=== PATIENT | male | born 1945 | race Caucasian/White ===

== ENCOUNTER 2023-02-15 23:58 | Emergency (ER) | payer MEDICARE, OTHER, SELFPAY ==
[2023-02-16 00:10] VITALS: BP 139/76; PULSE 76; RESP 16; TEMP 36.8; O2SAT 96; BMI 28.6
--- NOTE | 2023-02-16 00:22 | PC.NURSE ---
patient states he began to develop bilateral hip pain that radiated down to ankles approx 1 week ago. states he saw a chiropractor yesterday who helped with the pain to the right side, states he has zero pain to right lower extremity anymore. states the pain to the left seems to have gotten worse. states the pain starts in his hip and radiates down all the way to his ankle. states he has never been diagnosed with sciatica but this feels like it . states the pain improves when he is standing up and walking but worsens when he sits down or tries to lay down. states he tried ice, tylenol, and icyhot without relief.
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
[2023-02-16] MEDS: ONDANSETRON PF 4 MG/2 ML VIAL IV (00:52)
[2023-02-16] MEDS: MORPHINE SULFATE 4 MG/ML VIAL IV (00:52)
[2023-02-16 01:02] LABS: Basophils Absolute Auto 0.1 10^3/uL (0.0-0.1); Basophils Percent Auto 0.8 % (0.2-2.0); Eosinophils Absolute Auto 0.3 10^3/uL (0.0-0.7); Hematocrit 39.5 % (42.0-54.0); Hemoglobin 13.1 g/dL (14.0-18.0); Immature Granulocytes Abs Auto 0.07 10^3/uL (0.00-0.03); Immature Granulocytes Pct Auto 1.1 % (0.0-0.5); Lymphocytes Absolute Auto 1.5 10^3/uL (1.2-3.8); Lymphocytes Percent Auto 22.5 % (20.5-60.0); Mean Corpuscular HGB Conc 33.2 g/dL (29.9-35.2); Mean Corpuscular Volume 90.4 fL (80.0-94.0); Mean Platelet Volume 10.4 fL (9.5-13.5); Monocytes Absolute Auto 0.7 10^3/uL (0.3-0.8); Monocytes Percent Auto 10.2 % (1.7-12.0); Neutrophils Percent Auto 61.4 % (43.0-75.0); Platelet Count 157 10^3/uL (150-450); Red Blood Count 4.37 10^6/uL (4.70-6.10); Red Cell Distribution Width 12.6 % (11.0-15.0); White Blood Count 6.5 10^3/uL (4.0-11.0)
[2023-02-16 01:07] LABS: BUN Creatinine Ratio 15.6; Calcium 8.7 mg/dL (8.5-10.1); Chloride 105 mmol/L (98-107); Estimated GFR (African America >60 (>=60); Estimated GFR (Non-African Ame 54 (>=60); Glucose 141 mg/dL (74-106); Sodium 141 mmol/L (136-145)
[2023-02-16] MEDS: HYDROCODONE/ACETAMINOPHEN 5-325 MG TABLET 4 TAB PO (02:19)
== END 2023-02-16 02:28 | disposition home or self-care (01) ==
PROVIDERS: Emergency Provider Internal Medicine; PCP Family Medicine
DX: M54.42 Lumbago with sciatica, left side (principal); M51.26 Other intervertebral disc displacement, lumbar region; Z91.81 History of falling
CPT/HCPCS: 36415; 80048; 85025; 96374; 96375; 99284

== ENCOUNTER 2023-08-11 07:19 | Emergency (ER) | payer MEDICARE, OTHER, SELFPAY ==
[2023-08-11] VITALS (9 sets, daily range): BP systolic 127–148; BP diastolic 67–86; PULSE 55–71; RESP 4–21; TEMP 36.5; O2SAT 92–98; BMI 28.1
--- NOTE | 2023-08-11 07:34 | XR_ITS ---
The [address] [address] Patient Name: ROCIO PANG MRN: [id number] date: 1945 Sex: M Assigned Patient Location: ER Current Patient Location: ER Accession/Order Number: [id number] Exam Date: 08/11/2023 07:43 Report Date: 08/11/2023 07:55 At the request of: CHRISTIANO GHOTRA Procedure: XR chest 1V EXAM: XR chest 1V HISTORY: . SOB . COMPARISON: None. TECHNIQUE: Single view of the chest FINDINGS: Heart and vascularity are unremarkable. Lungs are free of focal infiltrates. There are couple granuloma in the left midlung field. EKG leads overlie the chest. XR/XR chest 1V IMPRESSION: No acute heart or lung disease identified. Electronically authenticated by: MAYANK MCRAE Date: 08/11/2023 07:55
--- NOTE | 2023-08-11 07:34 | ECG_ITS ---
The [facility] Test Date: 2023-08-11 Pat Name: ROCIO PANG Department: Room: - Gender: Male [employer]: : 1945 Requested By: NATAN KEYES Order Number: [id number] Reading MD: JEAN PIERRE STILL Measurements Intervals [place] Rate: 58 P: 25 GA: 166 QRS: -14 QRSD: 78 T: 67 QT: 410 QTc: 406 Interpretive Statements 1100 Sinus rhythm 9110 normal ECG No previous ECG available for comparison Electronically Signed On 08-12-2023 6:48:23 EST by JEAN PIERRE STILL
[2023-08-11 08:20] LABS: Influenza Virus A Antigen Negative; Influenza Virus B Antigen Negative; Internal Control Within Normal Limits; SARS-CoV-2 Ag POSITIVE (NEGATIVE)
--- NOTE | 2023-08-11 08:33 | ED.GENADUL1 ---
HPI - General Adult General Chief complaint: Shortness of Breath/Dyspnea Stated complaint: SHORTNESS OF BREATH Time Seen by Provider: 08/11/23 07:38 Source: patient Mode of arrival: walk-in History of Present Illness HPI narrative: Patient is a 77-year-old male who is presenting to the Emergency Room with chief complaint of cough, congestion and not feeling well for the past 7 days. Patient had more congestion this morning, felt short of breath this morning, so came in for evaluation. Patient has been doing Mucinex mxmq-hwd-clcasnn. Patient 7 days ago did have ear aches bilateral and sore throat. Patient's ear pain and sore throat has improved. Patient has no chest pain, no chest tightness. Patient is not short of breath at this time. No Abdominal pain, nausea, vomiting, or any other acute complaints. Patient Looks well. No other acute complaints. . All systems are negative except as noted/marked. All systems reviewed and otherwise negative. . Nurses note and vital signs reviewed and patient is not hypoxic. General: The patient appears well and in no apparent distress. Patient is resting comfortably on cart. Patient is not toxic, lethargic, or listless Skin: Warm, dry, no pallor noted. There is no rash noted. No petechiae, purpura. Head: Normocephalic, atraumatic Eye: Normal conjunctiva, no drainage, EOMI. PERRL Ears, Nose, Mouth, and Throat: oral mucosa is moist. Nares patent. Mouth without vesicles. Patient has clear drainage noted to the posterior pharynx, patient has mild posterior pharyngeal erythema, no unilateral swelling, airway patent, no other intraoral pathology. Cardiovascular: Regular Rate and Rhythm, no murmur, gallop, rub Respiratory: Patient is in no distress, no accessory muscle use, lungs are clear to auscultation, no wheezing, rales or rhonchi Back: non-tender, no CVA tenderness bilaterally to percussion. No CT LS midline pain GI: soft, no tenderness to palpation, Musculoskeletal: Patient has full range of motion of all of the extremities, no motor, sensory, or focal neurological deficits Neurological: A&O x3, normal speech Psychiatric: Cooperative Related Data Home Medications Medication Instructions Recorded Confirmed atorvastatin 20 mg tablet 20 mg PO DAILY 08/11/23 08/11/23 sitagliptin phosphate 100 mg 100 mg PO DAILY 08/11/23 08/11/23 tablet (Januvia) Previous Rx's Medication Instructions Recorded benzonatate 100 mg capsule 100 mg PO TID PRN cough #21 caps 08/11/23 rqsdbvaeyvajozf-lnbaqnucyhocnuu-KT 10 ml PO Q6H PRN cold symptoms 08/11/23 2 mg-30 mg-10 mg/5 mL oral syrup #200 mL (Bromfed DM) prednisone 50 mg tablet 50 mg PO DAILY 5 days #5 tabs 08/11/23 Allergies Allergy/AdvReac Type Severity Reaction Status Date / Time No Known Drug Allergies Allergy Verified 02/16/23 00:16 Exam Constitutional Vital Signs, click to edit/add: Last Vital Signs Temp 97.7 F 08/11/23 07:22 Pulse 66 08/11/23 07:22 Resp 20 08/11/23 07:22 BP 148/67 H 08/11/23 07:22 Pulse Ox 97 08/11/23 07:22 O2 Del Method Room Air 08/11/23 07:22 Course Vital Signs Vital signs: Vital Signs Temperature 97.7 F 08/11/23 07:22 Pulse Rate 66 08/11/23 07:22 Respiratory Rate 20 08/11/23 07:22 Blood Pressure 148/67 H 08/11/23 07:22 Pulse Oximetry 97 08/11/23 07:22 Oxygen Delivery Method Room Air 08/11/23 07:22 Temperature 97.7 F 08/11/23 07:22 Pulse Rate 66 08/11/23 07:22 Respiratory Rate 20 08/11/23 07:22 Blood Pressure 148/67 H 08/11/23 07:22 Pulse Oximetry 97 08/11/23 07:22 Oxygen Delivery Method Room Air 08/11/23 07:22 Medical Decision Making MDM Narrative Medical decision making narrative: EKG interpretation. Normal sinus rhythm at 50 beats a minute. Left axis deviation. No acute ST elevation, no acute ectopy. QTC of 406. Patient, tested positive, influenza is negative. Patient chest x-ray shows no acute cardio point is from EKG shows no acute changes. Patient's been sick for 7 days, patient most likely the end of illness/infection and Covid. Patient was given a prescription for steroids, Tessalon Perles and Bromfed. Patient will use DayQuil, NyQuil, Flonase [id number]. Patient continued she symptoms. No questions at discharge, no antibiotic indicated. No sinus pressure. Lab Data Labs: Lab Results 08/11/23 Range/Units 07:30 SARS-CoV-2 (PCR) Positive A (NEGATIVE) Influenza Type A Ag Negative Influenza Type B Ag Negative Discharge Plan Discharge Chief Complaint: Shortness of Breath/Dyspnea Clinical Impression: COVID, Sinus congestion, Cough Patient Disposition: Home, Self-Care Time of Disposition Decision: 08:22 Condition: Good Prescriptions / Home Meds: New prednisone 50 mg tablet 50 mg PO DAILY 5 Days Qty: 5 0RF benzonatate 100 mg capsule 100 mg PO TID PRN (Reason: cough) Qty: 21 0RF syolcjiimymhdaq-ztihoeqxi-TU [Bromfed DM] 2-30-10 mg/5 mL syrup 10 ml PO Q6H PRN (Reason: cold symptoms) Qty: 200 0RF No Action atorvastatin 20 mg tablet 20 mg PO DAILY Januvia 100 mg tablet 100 mg PO DAILY Instructions: Sinusitis (ED), Acute Cough (ED), COVID-19 (Coronavirus Disease 2019) (ED) Additional Instructions: Use [id number] DayQuil, NyQuil, Flonase. Follow-up with her PCP. Education on COVID was provided at bedside In discharge paperwork. Stand Alone Forms: Work/School Release, Portal Instructions Referrals: NATAN KEYES [Primary Care Provider] - 1 week
== END 2023-08-11 08:37 | disposition home or self-care (01) ==
PROVIDERS: Emergency Provider Emergency Medicine; PCP Family Medicine
DX: U07.1 COVID-19 (principal); R05.9 Cough, unspecified; R09.81 Nasal congestion; Z79.899 Other long term (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 therapy
CPT/HCPCS: 71045; 87804; 87811; 93005; 99285

== ENCOUNTER 2023-12-24 09:57 | Outpatient (OUT) | payer MEDICARE, OTHER, SELFPAY ==
[2023-12-24 12:03] LABS: Prostate Specific Antigen Dx 0.35 ng/mL (<=4.00)
== END 2023-12-24 09:58 | disposition home or self-care (01) ==
LOC: LAB 09:59
PROVIDERS: PCP Family Medicine; Visit Provider Radiology Radiation Oncology
DX: Z85.46 Personal history of malignant neoplasm of prostate (principal)
CPT/HCPCS: 36415; 84153

== ENCOUNTER 2024-01-12 20:40 | Emergency (ER) | payer MEDICARE, OTHER, SELFPAY ==
[2024-01-12 20:44] VITALS: BP 140/68; PULSE 60; TEMP 36.5; O2SAT 96; BMI 28.8
--- NOTE | 2024-01-12 20:53 | XR_ITS ---
The [address] [address] Patient Name: ROCIO PANG MRN: [id number] date: 1945 Sex: M Assigned Patient Location: ER Current Patient Location: Accession/Order Number: [id number] Exam Date: 01/12/2024 21:12 Report Date: 01/12/2024 22:14 At the request of: JULIAN WOODS Procedure: XR hand RT min 3V EXAM: XR hand RT min 3V , 01/12/2024 HISTORY: right thumb/hand pain COMPARISON: None. TECHNIQUE: X-rays of the right hand 3 views. FINDINGS: No fracture or dislocation right hand. Moderate degenerative changes are seen at the first carpometacarpal joint. No obvious soft tissue swelling or subcutaneous air. The bones are well-mineralized. XR/XR hand RT min 3V IMPRESSION: No fracture or dislocation right hand. Electronically authenticated by: MAYITO HALLMAN Date: 01/12/2024 22:14
--- NOTE | 2024-01-12 20:54 | ED.GENADUL1 ---
HPI HPI - General Adult General Chief complaint: Skin/Abscess/Foreign Body Stated complaint: Upper Extremity Pain Time Seen by Provider: 01/12/24 20:45 Source: patient Mode of arrival: walk-in Limitations: no limitations History of Present Illness HPI narrative: Patient is a 78-year-old male who presents to the emergency department for the evaluation of right thumb pain that he states began about 2 hours ago while at [email or web address]. He states he noticed a small red dot on the dorsum of the thumb and believes he may have been bitten by something. There has been no itching to the area, open wounds or drainage. He states pain now radiates to the entire right hand. No injury or trauma that he is aware of. He has not had any swelling or redness of the rest of the hand. No numbness or tingling. Related Data Home Medications ?Medication ?Instructions ?Recorded ?Confirmed atorvastatin 20 mg tablet 20 mg PO DAILY 08/11/23 08/11/23 sitagliptin phosphate 100 mg 100 mg PO DAILY 08/11/23 01/12/24 tablet (Januvia) metformin 500 mg tablet mg 01/12/24 Previous Rx's ?Medication ?Instructions ?Recorded benzonatate 100 mg capsule 100 mg PO TID PRN cough #21 caps 08/11/23 sefogjcbenjlhld-omdmeqpxdmyftpi-XE 10 ml PO Q6H PRN cold symptoms 08/11/23 2 mg-30 mg-10 mg/5 mL oral syrup #200 mL (Bromfed DM) prednisone 50 mg tablet 50 mg PO DAILY 5 days #5 tabs 08/11/23 naproxen 500 mg tablet 500 mg PO Q12H PRN pain #14 tabs 01/12/24 tramadol 50 mg tablet 50 mg PO Q4H PRN pain 3 days #15 01/12/24 tabs Allergies Allergy/AdvReac Type Severity Reaction Status Date / Time No Known Drug Allergies Allergy Verified 01/12/24 20:50 Opioid HPI Opioid Management Most Recent Opioid Data: No Data to Display Review of Systems ROS Constitutional Denies: fever or chills Ears, nose, mouth, and throat Denies: throat pain or nasal congestion Respiratory Denies: shortness of breath Gastrointestinal Denies: nausea or vomiting Musculoskeletal Reports: extremity pain; Denies: back pain or neck pain Integumentary/Breast Denies: rash Hematologic/Lymphatic Denies: easy bruising or easy bleeding Exam Narrative Exam Narrative: Gen.: Awake, alert, in no distress Head: Normocephalic, atraumatic ENT: Moist mucous membranes Respiratory: No respiratory distress Extremities: Patient is noted to be rubbing his right hand and his thumb with no difficulty or grimacing, but on my gentle touch of the right hand, he inks his hand away. He is unwilling to flex or extend the right thumb. There is no noted swelling, ecchymosis, discoloration of the right hand. 2 mm erythematous flat area to the dorsum of the proximal phalanx of the right thumb. No surrounding redness or red streaking. No open wounds. Psych: Normal mood and affect Neuro: No focal neuro deficit Skin: Warm, dry, intact Constitutional Vital Signs, click to edit/add: Last Vital Signs Temp 97.7 F 01/12/24 20:44 Pulse 60 01/12/24 20:44 Resp 16 01/12/24 20:44 BP 140/68 01/12/24 20:44 Pulse Ox 96 01/12/24 20:44 O2 Del Method Room Air 01/12/24 20:44 Course Vital Signs Vital signs: Vital Signs Temperature 97.7 F 01/12/24 20:44 Pulse Rate 60 01/12/24 20:44 Respiratory Rate 16 01/12/24 20:44 Blood Pressure 140/68 01/12/24 20:44 Pulse Oximetry 96 01/12/24 20:44 Oxygen Delivery Method Room Air 01/12/24 20:44 Temperature 97.7 F 01/12/24 20:44 Pulse Rate 60 01/12/24 20:44 Respiratory Rate 16 01/12/24 20:44 Blood Pressure 140/68 01/12/24 20:44 Pulse Oximetry 96 01/12/24 20:44 Oxygen Delivery Method Room Air 01/12/24 20:44 Medical Decision Making [facility] [place] Narrative Medical decision making narrative: Patient is noted to have no discomfort or grimacing when touching his own hand or placing his hand on the bed. He pulls his hand away on my exam. There is no evidence of significant insect sting, cellulitis or abscess to the right hand. X-rays show arthritis with no acute fracture or dislocation and labs show normal CRP and sed rate with stable labs, mild acute kidney injury. Patient will be placed on NSAIDs, we will avoid steroids as he has a history of diabetes. A short course of analgesics given patient was reevaluated by attending physician at discharge. Follow-up with PCP and return to the ER if symptoms change or worsen. Finger splint applied for comfort. Lab Data Lab results reviewed: Yes I reviewed the patient's lab results Labs: Lab Results 01/12/24 Range/Units 20:59 WBC 6.7 (4.0-11.0) 10^3/uL RBC 4.36 L (4.70-6.10) 10^6/uL Hgb 13.1 L (14.0-18.0) g/dL Hct 40.1 L (42.0-54.0) % MCV 92.0 (80.0-94.0) fL MCH 30.0 (25.9-34.0) pg MCHC 32.7 (29.9-35.2) g/dL RDW 12.4 (11.0-15.0) % Plt Count 159 (150-450) 10^3/uL MPV 10.8 (9.5-13.5) fL Neut % (Auto) 66.4 (43.0-75.0) % Lymph % (Auto) 19.3 L (20.5-60.0) % [place] % (Auto) 9.1 (1.7-12.0) % Eos % (Auto) 3.9 (0.9-7.0) % Baso % (Auto) 0.6 (0.2-2.0) % Neut # (Auto) 4.4 (1.4-6.5) 10^3/uL Lymph # (Auto) 1.3 (1.2-3.8) 10^3/uL [place] # (Auto) 0.6 (0.3-0.8) 10^3/uL Eos # (Auto) 0.3 (0.0-0.7) 10^3/uL Baso # (Auto) 0.0 (0.0-0.1) 10^3/uL Abs Immat Gran (auto) 0.05 H (0.00-0.03) 10^3/uL Imm/Tot Granulo (auto) 0.7 H (0.0-0.5) % ESR 17 (<=20) mm/hr Sodium 139 (136-145) mmol/L Potassium 4.0 (3.5-5.1) mmol/L Chloride 103 (98-107) mmol/L Carbon Dioxide 27.9 (21.0-32.0) mmol/L Anion Gap 12.1 BUN 26.0 H (7.0-18.0) mg/dL Creatinine 1.53 H (0.70-1.30) mg/dL Est GFR ( Amer) 54 L (>=60) Est GFR (Non-Af Amer) 44 L (>=60) BUN/Creatinine Ratio 17.0 Glucose 180 H (74-106) mg/dL Uric Acid 7.5 H (3.5-7.2) mg/dL Calcium 9.2 (8.5-10.1) mg/dL C-Reactive Protein <0.50 (<=0.50) mg/dL Imaging Data XR hand: Attestation: I have reviewed the pertinent imaging results. Discharge Plan Discharge Stand Alone Forms: Portal Instructions Chief Complaint: Skin/Abscess/Foreign Body Clinical Impression: Pain of right thumb Patient Disposition: Home, Self-Care Time of Disposition Decision: 21:43 Condition: Good Prescriptions / Home Meds: New tramadol 50 mg tablet 50 mg PO Q4H PRN (Reason: pain) 3 Days Qty: 15 0RF Rx Instructions: M79.644 naproxen 500 mg tablet 500 mg PO Q12H PRN (Reason: pain) Qty: 14 0RF No Action atorvastatin 20 mg tablet 20 mg PO DAILY Januvia 100 mg tablet 100 mg PO DAILY prednisone 50 mg tablet 50 mg PO DAILY 5 Days Qty: 5 0RF benzonatate 100 mg capsule 100 mg PO TID PRN (Reason: cough) Qty: 21 0RF lvjdlydupotidaa-myvfkbiht-IQ [Bromfed DM] 2-30-10 mg/5 mL syrup 10 ml PO Q6H PRN (Reason: cold symptoms) Qty: 200 0RF metformin 500 mg tablet Print Language: [place] Instructions: Arthralgia (ED) Referrals: NATNA KEYES [Primary Care Provider] - 1 week
--- OUTSIDE RECORDS SUMMARY | 2024-01-12 20:56 | XMS_ITS | CCD ---
Author Organization [facility] Care Team Providers Care Blanket Binder Name Role Phone Unavailable Primary Care Provider Unavailtheodore e Natan Keyes Primary Care Provider Chuck Hamm Unavailable Karine Torres Unavailable Jenn Thomas Unavailable NATAN KEYES Primary Care Physician [phone] AKMACKAOBIEIL Admitting Unavailable AKKINA, MARY Attending Unavailable STEPHY, DR GAMA Primary Care Unavailable STEPHY, DR GAMA Admitting Unavailable STEPHY, DR GAMA Attending Unavailable STEPHY, DR GAMA Primary Care Unavailable STEPHY, DR GAMA Consulting Unavailable STEPHY, DR GAMA Primary Care Unavailable JOAQUIN LUCIANO Admitting Unavailable JOAQUIN LUCIANO Attending Unavailable ZIETELVINA, DR NATHAN Khan Consulting Unavailable DESTINI JORGENSEN Consulting Unavailable STEPHY, DR GAMA Primary Care Unavailable JOAQUIN LUCIANO Admitting Unavailable JOAQUIN LUCIANO Attending Unavailable PHIL GARCIA Consulting Unavailable AKKINA, MARY Admitting Unavailable AKKINA MARY Attending Unavailable STEPHY, DR GAMA Primary Care Unavailable Jillian Edwards Unavailable MD Natan Keyes Primary Care Provider MD Jillian Edwards Attending Provider Natan Keyes Primary Care Provider MD Natan Keyes Primary Care Provider MD Chuck Hamm Attending Provider Kuns, DO Goyo P Attending Provider MD Natan Keyes Primary Care Provider MD Jillian Edwards Attending Provider Natan Keyes MD Unavailable Natan Keyes MD Primary Care Provider Natan Keyes Primary Care Unavailable Bakmoons, Aziz Admitting Unavailable Grace Aziz Attending Unavailable Natan Keyes Primary Care Unavailable Mihai Edwardsiz Admitting Unavailable Jillian Edwards Attending Unavailable Natan Keyes Primary Care Unavailable HanselChuck giron S Admitting Unavailable Chuck Hamm S Attending Unavailable Natan Keyes Primary Care [facility] Unavailable [facility], Goyo Duque Attending Unavailable Unavailable Primary Care Provider UnavailGOYO Jenkins Attending Unavailable JULIAN HEBERT Referring Unavailable GOYO COLEMAN Attending Unavailable GOYO COLEMAN Referring Unavailable JULIAN HEBERT Attending Unavailable WANDA MORENO Attending Unavailable NATAN KEYES Attending Unavailable Natan Keyes MD Primary Care Provider [phone] Bernardo PHAN Attending Unavailable Bernardo PHAN Attending Unavailable Sudheer Dyson Attending Unavailable NATAN KEYES [facility] Unavailable Stanley LEAL Referring Unavailable Stanley LEAL Attending Unavailable Allergies Allergy Classification Reported Allergen(s) Allergy Type Date of Onset Reaction(s) Facility (13 sources) Grass Mix Pollens Allergen Ext Drug allergy Unknown [facility] Other (1 source) Other Allergy to substance 3 [facility] (1 source) Wound Dressing Adhesive Drug Allergy 2 Unknown [facility] (1 source) Grass pollen Drug allergy (disorder) 4 [facility]ository (1 source) Grass; Translations: [Grass] Propensity to adverse reactions (disorder) [facility] Repository Medications Current Medications Medication Drug Class(es) Dates Sig (Normalized) Sig (Original) 0.4 ML cyclosporine 0.5 MG/ML Ophthalmic Suspension [Restasis] (1 source) Start: 05-19-2021 take 1 drop(s) into the eye(s) twice daily Restasis 0.05% Emulsion INSTILL 1 DROP INTO BOTH EYES TWICE A DAY Start Date: 05/19/21 Status: Ordered acetaminophen 325 mg / HYDROcodone bitartrate 5 mg oral tablet (1 source) Opioid Agonist take 1-2 tablets by mouth three times daily as needed HYDROcodone-aceta minophen ([place]) 5-325 MG tablet TAKE 1-2 TABLET BY MOUTH THREE TIMES DAILY NEEDED 0 Active acetaminophen 325 mg / oxyCODONE hydrochloride 5 mg oral tablet (1 source) Opioid Agonist Percocet 5-325 M G 1 tablet as needed Orally as needed Active [id number] 200 actuat albuterol 0.09 mg/actuat metered dose inhaler (5 sources) beta2-Adrenergic Agonist Start: 02-27-2023 take 2 puff(s) by inhalation four times daily as needed albuterol 90 mcg/actuation inhaler Inhale 2 puffs 4 times a day as needed. 0 02/27/2023 Active Start: 02-27-2023 take 2 puff(s) by mo uth four times daily as needed albuterol HFA 90 mcg/act inhaler INHALE 2 PUFFS BY MOUTH 4 TIMES A DAY NEEDED 0 02/27/2023 Active Start: 02-27-2023 take 2 puff(s) by in halation four times daily as needed Albuterol Sulfate HFA 108 (90 Base) MCG/ACT 2 puffs Inhalation 4 times a day prn Feb, Active allopurinol 100 mg oral tablet (2 sources) Xanthine Oxidase Inhibitor Start: 05-19-2021 take 1 tablet by mouth once daily allopurinol 100 mg Tab TAKE 1 TABLET BY MOUTH EVERY DAY Start Date: 05/19/21 Status: Ordered amoxicillin 875 mg / clavulanate 125 mg oral tablet (2 sources) Penicillin-class Antibacterial Start: 02-27-2023 take 1 tablet by mouth every twelve hours Amoxicillin-Pot Clavulanate 875-125 MG 1 tablet Orally every 12 hrs for 10 day(s) Feb, Active atorvastatin 20 mg oral tablet (3 sources) HMG-CoA Reductase Inhibitor Start: 07-05-2023 take 1 tablet by mouth once daily before mealtime atorvastatin (Lipitor) 20 mg tablet Take 1 tablet (20 mg) by mouth once daily in the morning. Take before meals. 0 07/05/2023 Active baclofen 10 mg oral tablet (1 source) gamma-Aminobutyric Acid-ergic Agonist baclofen (Lioresal) 10 MG tablet every 8 (eight) hours. 0 Active benzonatate 200 mg oral capsule (2 sources) Non-narcotic Antitussive Start: 02-27-2023 take 1 capsule by mouth every eight hours Benzonatate 200 MG 1 capsule Orally Three times a day Feb, Active Calcium (6 sources) Phosphate Binder, Calcium Calcium Active cholecalciferol 0.025 mg oral tablet (4 sources) Vitamin D Start: 06-24-2020 take 1 tablet by mouth once daily calcium (as carbonate)-vitami n D 90 mg-25 mcg (1000 intl units) oral tablet tab(s), Oral, Daily, Refill(s) 0 Start Date: 06/24/20 Status: Ordered Cholecalciferol, Vitamin D3, 50 mcg (2,000 unit) cap Take by mouth. 0 Active Comment on above: Take by mouth. Continuous Blood Gluc Sensor (FreeStyle [place]ito 2 Sensor) [facility] (1 source) Start: 08-03-20 23 Continuous Blood Gluc Sensor (FreeStyle Mayito 2 Sensor) [facility] Indications: Type 2 diabetes mellitus without complication, without long-term current use of insulin ([facility]) CHANGE EVERY 2 WEEKS DIRECTED 2 each 5 08/03/2023 Active diphenhydrAMINE (3 sources) Histamine-1 Receptor Antagonist diphenhydramine HCl (BENADRYL ALLERGY ORAL) Take by mouth. 0 Active Comment on above: Take by mouth. Loperamide (3 sources) Opioid Agonist loperamide HCl (IMODIUM ORAL) Take by mouth as needed. 0 Active Comment on above: Take by mouth as nee ded. metFORMIN hydrochloride 500 mg oral tablet (19 sources) Biguanide Start: 05-19-20 21 take 1 tablet by mouth twice daily metFORMIN (Glucophage) 500 mg tablet Take 1 tablet (500 mg) by mouth 2 times a day. 0 05/19/2021 Active take 1 tablet by abhishek th once daily at breakfast metFORMIN (GLUCOPHAGE) 500 mg tablet Melo e 500 mg by mouth daily with breakfast. 0 Active Comment on above: Take 500 mg by mouth daily with breakfast. olopatadine 2 mg/ml ophthalmic solution (4 sources) Histamine-1 Receptor Inhibitor Start: 02-27-2023 olopatadine (Pataday) 0.2 % ophthalmic solution Administer into affected eye(s) once every 24 hours. 0 02/27/2023 Active Start: 02-27-2023 take 1 drop(s) into the eye(s) once daily Pataday 0.2 % 1 drop into affected eye each eye Once a day for 7 days Feb, Active potassium phosphate 155 mg / sodium phosphate, dibasic 852 mg / sodium phosphate, monobasic 130 mg oral tablet (8 sources) Start: 01-20-2023 take 1 tablet by mouth three times daily Phospha 250 Neutral tablet Take 1 tablet (250 mg) by mouth 3 times a day. 0 01/20/2023 Active SITagliptin 100 mg oral tablet (18 sources) Dipeptidyl Peptidase 4 Inhibitor Start: 03-09-2022 Januvia Oral, Daily, Refill(s) 0 Start Date: 03/09/22 Status: Ordered Start: 10-16-2021 take 1 tablet by abhishek th once daily JANUVIA 100 mg tablet TAKE 1 TABLET BY MOUTH EVERY DAY FOR 30 DAYS 0 10/16/2021 Active Januvia Active Comment on above: TAKE 1 TABLET BY ABHISHEK TH EVERY DAY FOR 30 DAYS tamsulosin hydrochloride 0.4 mg oral capsule (3 sources) alpha-Adrenergic Camryn Start: 1 End: 2 take 1 capsule by mouth once daily at bedtime tamsulosin 0.4 mg Cap TAKE 1 CAPSULE BY MOUTH EVERYDAY AT BEDTIME Start Date: 05/19/21 Status: Ordered Comment on above: Take 1 capsule by mo [facility] daily at bedtime. tiZANidine 4 mg oral tablet (7 sources) Central alpha-2 Adrenergic Agonist Start: 1 tiZANidine 4 mg Tab TAKE 1/2 1 TABLET BY MOUTH TWICE A DAY NEEDED Start Date: 05/19/21 Status: Ordered Vitamin D3 (6 sources) Vitamin D3 Activ e Completed/Discontinued Medications Medication Drug Class(es) Dates Sig (Normalized) Sig (Original) azithromycin 250 mg oral tablet (8 sources) Macrolide Antimicrobial Start: 10-14-2001 take 1 tablet by mouth once daily ZITHROMAX TABLET 250MG PO Take one(1) tablet daily. 4 0 10/14/2001 Active Comment on above: Take one(1) tablet d aily. famotidine 20 mg oral tablet (8 sources) Histamine-2 Receptor Antagonist Start: 10-14-2001 take 1 tablet by mouth once daily PEPCID TABLET 20MG PO Indications: Abdominal pain, unspecified site , Constipation , Esophageal reflux Take one(1) tablet daily. 30 3 10/14/2001 Active Comment on above: Take one(1) tablet d aily. Problems Active Problems Problem Classification Problem Date Documented Date Episodic/Chronic Cancer of prostate (3 sources) Malignant tumor of prostate; Translations: [Malignant neoplasm of prostate] Onset: 02-15-2023 06-24-2020 Chronic Cancer of prostate (4 sources) Personal history of malignant neoplasm of prostate; Translations: [History of malignant neoplasm of prostate] Onset: 03-09-2022 Episodic Chronic kidney disease (14 sources) Chronic kidney disease stage 2; Translations: [Chronic kidney disease, stage 2 (mild)] Onset: 01-27-2019 Chronic Chronic obstructive pulmonary disease and bronchiectasis (1 source) Bronchitis, not specified as acute or chronic Episodic Diabetes mellitus with complications (2 sources) Type 2 diabetes mellitus; Translations: [Type 2 diabetes mellitus with diabetic chronic kidney disease] Onset: 01-27-2019 02-15-2023 Chronic Diabetes mellitus without complication (16 sources) Diabetes mellitus; Translations: [Type 2 diabetes mellitus in nonobese] Onset: 02-02-2017 05-15-2019 Chronic Disorders of lipid metabolism (1 source) Hypertriglyceridemia; Translations: [Pure hyperglyceridemia] Onset: 02-15-2023 02-15-2023 Chronic Essential hypertension (1 source) Benign essential hypertension; Translations: [Essential (primary) hypertension] Onset: 07-05-2023 07-05-2023 Chronic Gout and other crystal arthropathies (14 sources) Gouty arthritis of toe; Translations: [Gout, unspecified] Onset: 02-15-2023 02-15-2023 Chronic Hyperplasia of prostate (11 sources) Benign prostatic hypertrophy with outflow obstruction; Translations: [Benign prostatic hyperplasia with lower urinary tract symptoms] Onset: 03-09-2022 Chronic Hypertension with complications and secondary hypertension (5 sources) Hypertensive chronic kidney disease with stage 1 through stage 4 chronic kidney disease, or unspecified chronic kidney disease; Translations: [Chronic kidney disease due to hypertension] Onset: 09-15-2023 Chronic Immunizations and screening for infectious disease (3 sources) Contact with and (suspected) exposure to other viral communicable diseases; Translations: [Contact with and (suspected) exposure to other viral communicable diseases Z20.828] Onset: 05-23-2021 Resolved: 06-14-2021 Episodic Inflammation; infection of eye (except that caused by tuberculosis or sexually transmitteddisease) (1 source) Acute atopic conjunctivitis, bilateral Episodic Joint disorders and dislocations; trauma-related (3 sources) Derangement of right knee; Translations: [Unspecified internal derangement of right knee] Onset: 03-26-2021 02-15-2023 Chronic Malaise and fatigue (2 sources) Fatigue; Translations: [Chronic fatigue, unspecified] Onset: 10-22-2017 02-15-2023 Chronic Melanomas of skin (8 sources) Malignant melanoma of back; Translations: [Malignant melanoma of other part of trunk] Onset: 02-26-2017 02-15-2023 Chronic Nutritional deficiencies (8 sources) Vitamin D deficiency; Translations: [Vitamin D deficiency, unspecified] Onset: 09-15-2023 Chronic Occlusion or stenosis of precerebral arteries (2 sources) Bilateral stenosis of carotid arteries; Translations: [Occlusion and stenosis of bilateral carotid arteries] Onset: 02-15-2023 02-15-2023 Chronic Other aftercare (1 source) Other [employer] driver (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 therapy; Translations: [OTH HALF-WAY CURRENT DRUG THERAPY] Onset: 03-16-2022 Episodic Other aftercare (2 sources) Follow-up status; Translations: [Encounter for change or removal of nonsurgical wound dressing] Onset: 11-12-2023 11-12-2023 Episodic Other aftercare (1 source) Encounter for change or removal of nonsurgical wound dressing; Translations: [Encounter for change or removal of nonsurgical wound dressing] Onset: 11-12-2023 Episodic Other connective tissue disease (1 source) Other muscle spasm; Translations: [OTHER MUSCLE SPASM] Onset: 03-16-2022 Episodic Other connective tissue disease (3 sources) Personal history of other diseases of the musculoskeletal system and connective tissue; Translations: [Personal history of other diseases of the musculoskeletal system and connective tissue] Onset: 09-15-2023 Episodic Other diseases of kidney and ureters (3 sources) Cyst of kidney, acquired; Translations: [Cyst of kidney, acquired] Onset: 09-15-2023 Episodic Other nervous system disorders (13 sources) Chronic pain; Translations: [Other chronic pain] Chronic Other nervous system disorders (4 sources) Other chronic pain; Translations: [Other chronic pain] Onset: 10-17-2021 Resolved: 03-06-2022 Chronic Other nervous system disorders (1 source) Disorder of muscle; Translations: [Myopathy, unspecified] Onset: 06-24-2023 06-24-2023 Chronic Other nutritional; endocrine; and metabolic disorders (5 sources) Hypophosphatemia; 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 Other nutritional; endocrine; and metabolic disorders (4 sources) Other disorders of phosphorus metabolism; Translations: [Other disorders of phosphorus metabolism] Onset: 09-15-2023 Chronic Other nutritional; endocrine; and metabolic disorders (1 source) Cholesterol level - finding; Translations: [Lipoprotein deficiency] Onset: 02-15-2023 02-15-2023 Chronic Other nutritional; endocrine; and metabolic disorders (1 source) Lipoprotein deficiency disorder; Translations: [Lipoprotein deficiency] Onset: 01-25-2018 03-18-2023 Chronic Other upper respiratory infections (5 sources) Acute upper respiratory infection, unspecified; Translations: [Acute pharyngitis, unspecified] Onset: 05-23-2021 Resolved: 02-28-2022 Episodic Residual codes; unclassified (1 source) Left kidney absent 03-01-2020 Episodic Residual codes; unclassified (4 sources) Acquired absence of kidney; Translations: [Acquired absence of kidney] Onset: 09-15-2023 Episodic Spondylosis; intervertebral disc disorders; other back problems (20 sources) Prolapsed lumbar intervertebral disc; Translations: [Other intervertebral disc displacement, lumbar region] Onset: 04-18-2021 Resolved: 03-06-2022 Chronic Unclassified (3 sources) CONTACT W/AND (SUSP) EXPOS COVID-19; Translations: [CONTACT W/AND (SUSP) EXPOS COVID-19] Onset: 06-20-2021 Unclassified (1 source) Other intervertebral disc degeneration, lumbar region; Translations: [Other intervertebral disc degeneration, lumbar region] Onset: 04-07-2023 Past or Other Problems Problem Classification Problem Date Documented Da te Episodic/Chronic Abdominal pain (2 sources) Flank pain; Translations: [Unspecified abdominal pain] Onset: 03-18-2023 02-16-2019 Episodic Calculus of urinary tract (3 sources) History of calculus of kidney; Translations: [Personal history of urinary calculi] Onset: 03-29-2019 02-16-2019 Episodic Genitourinary symptoms and ill-defined conditions (10 sources) Dysuria; Translations: [Microscopic hematuria] Onset: 03-18-2023 03-01-2020 Episodic Inflammatory conditions of male genital organs (2 sources) Prostatitis; Translations: [Inflammatory disease of prostate, unspecified] Onset: 03-18-2023 05-15-2019 Episodic Melanomas of skin (1 source) History of malignant melanoma of the skin; Translations: [Personal history of malignant melanoma of skin] Onset: 09-14-2017 03-18-2023 Episodic Other connective tissue disease (1 source) Triggering of digit; Translations: [Trigger finger, right index finger] Onset: 02-15-2023 02-15-2023 Episodic Other connective tissue disease (1 source) Acquired trigger finger; Translations: [Trigger finger, unspecified finger] Onset: 03-16-2016 03-18-2023 Episodic Other connective tissue disease (1 source) Heel pain; Translations: [Pain in left foot] Onset: 03-23-2023 03-23-2023 Episodic Other connective tissue disease (1 source) Calcaneal spur of left foot; Translations: [Calcaneal spur, left foot] Onset: 03-23-2023 03-23-2023 Episodic Other connective tissue disease (1 source) Muscle pain; Translations: [Myalgia, unspecified site] Onset: 06-02-2023 06-02-2023 Episodic Other gastrointestinal disorders (1 source) Constipation; Translations: [Constipation, unspecified] Onset: 02-15-2023 02-15-2023 Episodic Other gastrointestinal disorders (1 source) Dysphagia; Translations: [Dysphagia, unspecified] Onset: 02-15-2023 02-15-2023 Episodic Other screening for suspected conditions (not mental disorders or infectious disease) (4 sources) Raised prostate specific antigen; Translations: [Elevated prostate specific antigen [PSA]] Onset: 01-29-2020 02-16-2019 Episodic Residual codes; unclassified (8 sources) Absent kidney; Translations: [Acquired absence of kidney] Onset: 02-15-2023 02-15-2023 Episodic Residual codes; unclassified (1 source) History of nephrectomy; Translations: [Acquired absence of kidney] Onset: 02-15-2023 02-15-2023 Episodic Screening and history of mental health and substance abuse codes (2 sources) Ex-smoker; Translations: [Personal history of nicotine dependence] Onset: 03-18-2023 05-15-2019 Episodic Spondylosis; intervertebral disc disorders; other back problems (20 sources) Lumbar radiculopathy; Translations: [Radiculopathy, lumbar region] Onset: 03-05-2020 Resolved: 03-06-2022 Episodic Unclassified (1 source) Contact with and (suspected) exposure to covid-19 Z20.822 Onset: 02-28-2022 Resolved: 02-28-2022 Unclassified (1 source) CONTACT W/AND (SUSP) EXPOS COVID-19; Translations: [CONTACT W/AND (SUSP) EXPOS COVID-19] Onset: 06-17-2021 Viral infection (1 source) COVID-19; Translations: [Other specified viral infection] Onset: 02-15-2023 02-15-2023 Episodic Results Test Name Value Interpretation Reference Range Facility [facility] 12-29-2023 CNOV Office Visit (RADTSA ) GARRETTDINORAOTFROCIO ([id number]) 1945 M Date Time Provider Department 12/29/23 10:30 AM Stanley LEAL During your visit today, we recorded the following information about you: Temperature Pulse Respiration Blood pressure 97.4 degrees 67/minute 18/minute 156/79 Weight 91.5 kg Dora Khanna RN 01/05/2024 2:02 PM Signed AUA 8 JOSE Mott G Phillip, MD 01/05/2024 2:02 PM Signed Radiation Oncology - Follow Up Note PATIENT NAME: Rocio Pang PATIENT DIAGNOSIS: Prostate adenocarcinoma, 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 RADIATION SUMMARY: DATES OF TREATMENT: 11/26/2020- 01/02/2021 AREA TREATED: Pelvis/ Prostate DELIVERED DOSE: Area: Pelvis/ Prostate 7,000 cGy in 28 fractions, 2 Arcs, IMRT, 10 MV with daily CBCT TOTAL: 7,000 cGy in 28 fractions ELAPSED TIME: 37 days. INTERVAL HISTORY:Doing well denies new problems or concerns. 05/20/22:Doing fairly well. Denies any new problems or concerns other than some chronic low back pain due to known ruptured disc. 11/04/21: Doing well. Staying active. He did have some diarrhea periodically earlier this year however this is resolved after taking some probiotics. PSA HISTORY: 12/24/2023 0.35 PSA (ng/mL) Date Value 12/28/2022 0.34 05/11/2022 0.36 11/03/2021 0.38 04/29/2021 0.51 01/28/2021 0.54 11/19/2020 0.88 PSA Screening (ng/mL) Date Value 05/16/2001 2.1 PSA. (no units) Date Value 12/24/2023 0.35 ALLERGIES No Known Allergies metFORMIN (GLUCOPHAGE) 500 mg tablet Take 500 mg by mouth daily with breakfast. Cholecalciferol, Vitamin D3, 50 mcg (2,000 unit) cap Take by mouth. JANUVIA 100 mg tablet TAKE 1 TABLET BY MOUTH EVERY DAY FOR 30 DAYS diphenhydramine HCl (BENADRYL ALLERGY ORAL) Take by mouth. loperamide HCl (IMODIUM ORAL) Take by mouth as needed. REVIEW OF SYSTEMS: D/N = 4-12/21 Hematuria: none Dysuria: none Incontinence: none Urgency: none Catheter use: none Medications to aid urination: y - Total AUA Score: 8 Bowel movement frequency: 1/day Bowel movement quality: normal Blood per emesis left neck: none PHYSICAL EXAM: BP 156/79 Pulse 67 Temp 36.3 ?C (97.4 ?F) Resp 18 Wt 91.5 kg (201 lb 11.5 oz) SpO2 96% KPS: 100 General appearance: Alert and oriented. No acute distress. Rectal exam def Extremities: No deformities, edema, skin discoloration, clubbing or cyanosis. Lymph Nodes: No cervical lymphadenopathy, No supraclavicular lymphadenopathy, No axillary lymphadenopathy. Skin: Skin color, texture, turgor normal, no suspicious rashes or lesions. 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 Patient continues to do very well. PSA remains low. No significant post radiation related problems. Plan to see patient back in 1 year with PSA. Signed by: Stanley Leal MD cc: Natan Keyes MD Portions of the above note extracted and edited from previous visit as well as active information included in the EMR. Referring Provider: Stanley LEAL [[id number]] Allergies As of Date: 12/29/2023 (No Known Allergies) Date Reviewed: 12/29/2023 Reviewed by: Dora Khanna RN - Fully Assessed Reason for Visit: Prostate Cancer [590] Primary Visit Diagnosis:History of prostate cancer [Z85.46] Order(s):PSA (OUTSIDE) [6934401] Order #: [id number] PROSTATE-SPECIFIC ANTIGEN DIAGNOSTIC [SQPSA] Order #: [id number] FUTURE Prescriptions as of 01/05/2024 - metFORMIN (GLUCOPHAGE) 500 mg tablet Take 500 mg by mouth daily with breakfast. - Cholecalciferol, Vitamin D3, 50 mcg (2,000 unit) cap Take by mouth. - JANUVIA 100 mg tablet TAKE 1 TABLET BY MOUTH EVERY DAY FOR 30 DAYS - diphenhydramine HCl (BENADRYL ALLERGY ORAL) Take by mouth. - loperamide HCl (IMODIUM ORAL) Take by mouth as needed. Problem List As Of Date: 12/29/2023 (None) Visit Notes: >> Dora Khanna RN WedDecember 29, 2023 10:17 AM Status: Signed AUA 8 Dora Khanna RN Disposition: Return in about 1 year (around 12/28/2024). Follow-up and Disposition History for Encounter Date Provider Department Center 12/29/2023 [id number] LEAL FITZ HANNA Encounter Status:Closed by Stanley LEAL on 01/05/24 [facility] PSA (OUTSIDE)on 12-24-2023 [facility] Provider Letteron 12-08-2023 Provider Letter December 08, 2023 ROCIO PANG [address] [place] [address] : 1945 Dear Rocio, /We have been trying to reach you with no success. You have an appointment with Dr. Bernardo Phan on 03/17/2024 which will need to be rescheduled since he will be out of the office that day. Please contact the office at the number listed below to get this appointment rescheduled at your earliest convenience. Thank you for your prompt attention to this matter. Sincerely, [facility] [address], [place] [address] [facility] CNCOon 11-22-2023 CNCO Letter Text [facility] Mohs surgeryon 11-03-2023 Consent obtained: written [place] Protocol: Procedure explained and questions answered to patient or proxy's satisfaction: Yes Test results available and properly labeled: Yes Pathology report reviewed: Yes External notes reviewed: Yes Photo or diagram used for site identification: Yes Site/side marked: Yes Slide independently reviewed by Mohs surgeon: Yes Immediately prior to procedure a time out was called: Yes Patient identity confirmed: verbally with patient Preparation: Patient was prepped and draped in usual sterile fashion Anticoagulation: Is the patient taking prescription anticoagulant and/or aspirin prescribed/recommended by a physician? No Was the anticoagulation regimen changed prior to Mohs? 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 Yes Previous treatment type: excision Previous treatment type comment: [address] Pineda Micrographic Surgery Details: Post-operative length (cm): 5.5 Post-operative width (cm): 4 Number of Mohs stages: 1 Is this a complex case (associate members only): No Stage 1 Comments: The patient was brought into the operating room and placed in the procedure chair in the appropriate position. The area positive by previous biopsy was identified and confirmed with the patient. The area of clinically obvious tumor was debulked using a curette and/or scalpel as needed. An incision was made following the Mohs approach through the skin. The specimen was taken to the lab, divided into 8 piece(s) and appropriately chromacoded and processed. The clinically evident lesion was excised and taken to the lab and serially vertically sectioned and stained with hematoxylin and eosin and also immunostained with [place]-1. A 3 mm biopsy of adjacent tissue was taken and used to establish a baseline with hematoxylin and eosin and [place]-1 immunostains. The debulk showed melanoma in situ. The specimen was processed using immunostains with [place]-1. Tumor features identified on Mohs section: no tumor identified Depth of defect: subcutaneous fat Patient tolerance of procedure: tolerated well, no immediate complications Reconstruction: Was the defect reconstructed?: No (Defect to heal by secondary intention.) Fine/surface layer approximation (top stitches) Hemostasis achieved with: pressure and electrodesiccation Outcome: patient tolerated procedure well with no complications Post-procedure details: sterile dressing applied and wound care instructions given Dressing type: petrolatum, pressure dressing, Telfa pad and Hypafix Additional details: Melanoma Gi: Curative Intent: Yes Original Breslow Thickness: n/a - MIS Clinical margin width: Other - Mohs, individual anatomic or functional considerations per the NCCN guidelines Depth of excision: Other - Mohs, individual anatomic or functional considerations per the NCCN guidelines Discussion/Procedural Comments: [facility] Work Phone: [facility] Work Phone: Surgical pathology studyon 0 10-07-2023 Surgical pathology study Pathology report.total SEE COMMENT Dermatopathology Report Case: [id number] Authorizing Provider: Goyo Coleman MD PhD Collected: 10/07/2023 1213 Ordering Location: [facility] Received: 10/07/2023 1213 [facility] Pathologist: Daphney Ho MD Specimen: OUTSIDE BLOCK(S)/SLIDE(S), 3 SLIDES, [facility] #[id number] (BX: 09/27/2023) Path report.final diagnosis SEE COMMENT 3 SLIDES, [facility] #[id number] (BX: 09/27/2023) SKIN, RIGHT FOREHEAD, SHAVE BIOPSY: ATYPICAL MELANOCYTIC HYPERPLASIA AND ACTINIC KERATOSIS WITH POSSIBLE SCAR, SEE NOTE. Note: Microscopic examination reveals basal layer keratinocyte atypia. There is possible dermal fibrosis. There are increased single melanocytes with mildly enlarged nuclei and minimal cytoplasm along the dermal-epidermal junction. 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 A complete re-excision is recommended. Electronically signed out by Daphney Ho MD Path report.relevant Hx 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 4.0X2.2CM PREV PATH# [id number], [id number] IRREGULAR PIGMENTED PAPULE. Path report.gross observation SEE COMMENT A. OUTSIDE BLOCK(S)/SLIDE(S). Received for consultation from [facility] are three slides labeled [id number] (BX: 09/27/2023) along with the corresponding pathology report. [facility] Comment on above: Order Comment: Mater ials Received: 3 SLIDES, [facility] #[id number] (BX: 09/27/2023) Alanine aminotransferase [En zymatic activity/volume] in Serum or PlasmaOrdered By: Jillian Edwards on 09-15-2023 ALT [Catalytic activity/Vol] 19 U/L 7-52 [facility] Albumin [Mass/volume] in Ser um or Plasma by Bromocresol green (BCG) dye binding methoOrdered By: Jillian Edwards on 09-15-2023 Albumin BCG dye [Mass/Vol] 4.3 g/dL 3.5-5.7 [facility] Alkaline phosphatase [Enzyma tic activity/volume] in Serum or PlasmaOrdered By: Jillian Edwards on 09-15-2023 ALP [Catalytic activity/Vol] 48 U/L 34-104 [facility] Aspartate aminotransferase [ Enzymatic activity/volume] in Serum or PlasmaOrdered By: Jillian Edwards on 09-15-2023 AST [Catalytic activity/Vol] 19 U/L 13-39 [facility] Bilirubin.total [Mass/volume ] in Serum or PlasmaOrdered By: Jillian Edwards on 09-15-2023 Bilirubin [Mass/Vol] 0.4 mg/dL 0.3-1.0 [facility] Calcium [Mass/volume] in Ser um or PlasmaOrdered By: Jillian Edwards on 09-15-2023 Calcium [Mass/Vol] 9.1 mg/dL 8.6-10.3 [facility] Carbon dioxide, total [Moles /volume] in Serum or PlasmaOrdered By: Jillian Edwards on 09-15-2023 CO2 [Moles/Vol] 31.4 mmol/L 21.0-31.0 [facility] Chloride [Moles/volume] in S elias or PlasmaOrdered By: Jillian Edwards on 09-15-2023 Chloride [Moles/Vol] 106 mmol/L 98-107 [facility] Comprehensive Metabolic Pane danya 09-15-2023 Albumin [Mass/Vol] 4.3 g/dL Normal 3.5-5.7 [facility] Comment on above: Order Comment: BRANDI RUBIN STATES HE ONLY NEEDS THE CMP DONE. Reason for Exam Arteriolonephrosclerosis;Chronic kidney disease, stage II (m Performed By: #### C MP #### [address] Albumin/Globulin [Mass ratio] 1.5 {ratio} Normal [facility] Comment on above: Order Comment: PATIE NT STATES HE ONLY NEEDS THE CMP DONE. Reason for Exam Arteriolonephrosclerosis;Chronic kidney disease, stage II (m Performed By: #### C MP #### [facility] [address] [place] [id number] [facility] ALP [Catalytic activity/Vol] 48 U/L Normal 34-104 [facility] Comment on above: Order Comment: BRANDI NT STATES HE ONLY NEEDS THE CMP DONE. Reason for Exam Arteriolonephrosclerosis;Chronic kidney disease, stage II (m Result Comment: PERF ORMED BY: [place] [address] PATHOLOGIST MESS ATTENDANT CREW GENE RAGLAND M.D. Performed By: #### C MP #### [address] ALT [Catalytic activity/Vol] 19 U/L Normal 7-52 [facility] Comment on above: Order Comment: BRANDI NT STATES HE ONLY NEEDS THE CMP DONE. Reason for Exam Arteriolonephrosclerosis;Chronic kidney disease, stage II (m Performed By: #### C MP #### [address] Anion gap [Moles/Vol] 9.0 mmol/L Normal 6.0-15.0 [facility] Comment on above: Order Comment: BRANDI RUBIN STATES HE ONLY NEEDS THE CMP DONE. Reason for Exam Arteriolonephrosclerosis;Chronic kidney disease, stage II (m Performed By: #### C MP #### [place] [address] [place] AST [Catalytic activity/Vol] 19 U/L Normal 13-39 [facility] Comment on above: Order Comment: BRANDI NT STATES HE ONLY NEEDS THE CMP DONE. Reason for Exam Arteriolonephrosclerosis;Chronic kidney disease, stage II (m Performed By: #### C MP #### [place] [id number] [place] Bilirubin [Mass/Vol] 0.4 mg/dL Normal 0.3-1.0 [facility] Comment on above: Order Comment: BRANDI NT STATES HE ONLY NEEDS THE CMP DONE. Reason for Exam Arteriolonephrosclerosis;Chronic kidney disease, stage II (m Performed By: #### C MP #### [facility] [address] [place] [address] [place] Calcium [Mass/Vol] 9.1 mg/dL Normal 8.6-10.3 [facility] Comment on above: Order Comment: BRANDI NT STATES HE ONLY NEEDS THE CMP DONE. Reason for Exam Arteriolonephrosclerosis;Chronic kidney disease, stage II (m Performed By: #### C MP #### [facility] [address] [place] [address] [place] Chloride [Moles/Vol] 106 mmol/L Normal 98-107 [facility] Comment on above: Order Comment: PATIXavier NT STATES HE ONLY NEEDS THE CMP DONE. Reason for Exam Arteriolonephrosclerosis;Chronic kidney disease, stage II (m Performed By: #### C MP #### [place] [address] [place] CO2 [Moles/Vol] 31.4 mmol/L High 21.0-31.0 [facility] Comment on above: Order Comment: PATIXavier NT STATES HE ONLY NEEDS THE CMP DONE. Reason for Exam Arteriolonephrosclerosis;Chronic kidney disease, stage II (m Performed By: #### C MP #### [facility] [address] [place] [address] [place] Creatinine [Mass/Vol] 1.04 mg/dL Normal 0.70-1.30 [facility] Comment on above: Order Comment: PATIXavier NT STATES HE ONLY NEEDS THE CMP DONE. Reason for Exam Arteriolonephrosclerosis;Chronic kidney disease, stage II (m Performed By: #### C MP #### [facility] [address] [place] [id number] [place] GFR/1.73 sq M.predicted MDRD (S/P/Bld) [Vol rate/Area] mL/min/{1.73_m2} [facility] Comment on above: Order Comment: BRANDI NT STATES HE ONLY NEEDS THE CMP DONE. Reason for Exam Arteriolonephrosclerosis;Chronic kidney disease, stage II (m Performed By: #### C MP #### [facility] [address] [place] [id number] [facility] Globulin (S) [Mass/Vol] 2.8 g/dL Normal [facility] Comment on above: Order Comment: BRANDI RUBIN STATES HE ONLY NEEDS THE CMP DONE. Reason for Exam Arteriolonephrosclerosis;Chronic kidney disease, stage II (m Performed By: #### C MP #### [facility] [address] [place] [id number] [facility] Glucose [Mass/Vol] 140 mg/dL High 70-100 [facility] Comment on above: Order Comment: BRANDI RUBIN STATES HE ONLY NEEDS THE CMP DONE. Reason for Exam Arteriolonephrosclerosis;Chronic kidney disease, stage II (m Result Comment: [facility] Glucose Reference Range is dependent on time and content of last meal. Glucose of more than 200 mg/dL in a nonstressed, ambulatory subject supports the diagnosis of Diabetes Mellitus. ADA recommended reference range Performed By: #### C MP #### [address] Potassium [Moles/Vol] 4.4 mmol/L Normal 3.5-5.1 [facility] Comment on above: Order Comment: BRANDI RUBIN STATES HE ONLY NEEDS THE CMP DONE. Reason for Exam Arteriolonephrosclerosis;Chronic kidney disease, stage II (m Performed By: #### C MP #### [place] [address] [place] Protein [Mass/Vol] 7.1 g/dL Normal 6.4-8.9 [facility] Comment on above: Order Comment: BRANDI RUBIN STATES HE ONLY NEEDS THE CMP DONE. Reason for Exam Arteriolonephrosclerosis;Chronic kidney disease, stage II (m Performed By: #### C MP #### [facility] [address] [place] [id number] [place] Sodium [Moles/Vol] 142 mmol/L Normal 136-145 [facility] Comment on above: Order Comment: BRANDI RUBIN STATES HE ONLY NEEDS THE CMP DONE. Reason for Exam Arteriolonephrosclerosis;Chronic kidney disease, stage II (m Performed By: #### C MP #### [address] [place] [address] [facility] Urea nitrogen [Mass/Vol] 17 mg/dL Normal 7-25 [facility] Comment on above: Order Comment: BRANDI RUBIN STATES HE ONLY NEEDS THE CMP DONE. Reason for Exam Arteriolonephrosclerosis;Chronic kidney disease, stage II (m Performed By: #### C MP #### [facility] [address] Creatinine [Mass/volume] in Serum or PlasmaOrdered By: Jillian Edwards on 09-15-2023 Creatinine [Mass/Vol] 1.04 mg/dL 0.70-1.30 [facility] Globulin Calc (S) [Mass/Vol] Ordered By: Jillian Edwards on 09-15-2023 Globulin (S) [Mass/Vol] 2.8 g/dL [facility] Glucose [Mass/volume] in Ser um or PlasmaOrdered By: Jillian Edwards on 09-15-2023 Glucose [Mass/Vol] 140 mg/dL 70-100 [facility] Comment on above: ADA recommended refe rence rangeRandom Glucose Reference Range is dependent on time and content of last meal. Glucose of more than 200 mg/dL in a nonstressed, ambulatory subject supports the diagnosis of Diabetes Mellitus. No Panel InformationOrdered By: Jillian Edwards on 09-15-2023 Estimated GFR (CKD-EPI) > 60.0 mL/Min [facility] Creatinine Clearance (Chem N/A [facility] Potassium [Moles/volume] in Serum or PlasmaOrdered By: Jillian Edwards on 09-15-2023 Potassium [Moles/Vol] 4.4 mmol/L 3.5-5.1 [facility] Protein [Mass/volume] in Ser um or PlasmaOrdered By: Jillian Edwards on 09-15-2023 Protein [Mass/Vol] 7.1 g/dL 6.4-8.9 [facility] Serum or plasma albumin/glob ulin mass ratioOrdered By: Jillian Edwards on 09-15-2023 Albumin/Globulin [Mass ratio] 1.5 {ratio} [facility] Serum or plasma anion gap de terminationOrdered By: Jillian Edwards on 09-15-2023 Anion gap [Moles/Vol] 9.0 mmol/L 6.0-15.0 [facility] Sodium [Moles/volume] in Ser um or PlasmaOrdered By: Jillian Edwards on 09-15-2023 Sodium [Moles/Vol] 142 mmol/L 136-145 [facility] Urea nitrogen [Mass/volume] in Serum or PlasmaOrdered By: Jillian Edwards on 09-15-2023 Urea nitrogen [Mass/Vol] 17 mg/dL 7-25 [facility] MR lumbar spine wo conon MR lumbar spine wo con [facility] [address] MRI Report Signed Patient: Rocio Pang MR#: [id number] : 1945 Acct:[id number] Age/Sex: 77 / M ADM Date: 04/07/23 Loc: [facility] Room: Type: [facility] Attending Dr: Chuck Hamm MD Copies to: Chuck Hamm MD Ordering Provider: Chuck Hamm MD Date of Service: 04/07/23 MR/MR lumbar spine wo con: Lumbar radiculopathy;Chronic pain;Lumbar degenerative disc d MR lumbar spine wo con 04/07/2023 8:10 AM SIGNS AND SYMPTOMS: Bilateral lower extremity weakness left greater than right. Low back pain. PROTOCOL: Multiplanar multisequence MR images of the lumbar spine were obtained without IV contrast COMPARISON: 05/21/2020. FINDINGS: The bones of the lumbar spine are in anatomic alignment. There is preservation of vertebral body heights. There is disc desiccation and mild disc height loss at L2-L3, L3-L4, and L4- L5. The marrow signal is within normal limits. The conus terminates at the T12-L1 intervertebral disc level. No epidural or paraspinous fluid collection is appreciated. There is evidence of previous left nephrectomy. Degenerative changes are noted in the sacral iliac joints bilaterally. At T12-L1: There is a normal disc, central canal, and neural foramen. At L1-L2: There is a normal disc, central canal, and neural foramen. At L2-L3: There is a broad-based disc bulge with facet hypertrophy. There is mild spinal canal stenosis with moderate bilateral neural foraminal narrowing. This is unchanged. At L3-L4: There is a broad-based disc bulge with facet hypertrophy. There is a left central disc extrusion with caudal migration. This is new compared to the prior exam. There is mass effect on the traversing left L4 nerve roots. There is moderate spinal canal stenosis with moderate bilateral neural foraminal narrowing. At L4-L5: There is a broad-based disc bulge with facet hypertrophy and a small left-sided facet effusion. There is mild to moderate narrowing of the spinal canal with a small internal synovial cyst arising from the left facet joint measuring approximately 5 mm in greatest dimension. There is mild spinal canal narrowing with moderate to severe left and mild right neural foraminal stenosis. These findings are worse when compared to the prior exam. At L5-S1: Facet degenerative changes are present bilaterally contributing to minimal bilateral neural foraminal narrowing without spinal canal narrowing. This is unchanged. MR/MR lumbar spine wo con IMPRESSION: At L3-L4: There is a broad-based disc bulge with facet hypertrophy. There is a left central disc extrusion with caudal migration. This is new compared to the prior exam. There is mass effect on the traversing left L4 nerve roots. There is moderate spinal canal stenosis with moderate bilateral neural foraminal narrowing. At L4-L5: There is a broad-based disc bulge with facet hypertrophy and a small left-sided facet effusion. There is mild to moderate narrowing of the spinal canal with a small internal synovial cyst arising from the left facet joint measuring approximately 5 mm in greatest dimension. There is mild spinal canal narrowing with moderate to severe left and mild right neural foraminal stenosis. These findings are worse when compared to the prior exam. Lesser degrees of degenerative changes are redemonstrated, as above. Impression dictated by: Esequiel Coto M.D.04/07/2023 10:22 AM Dictation Location: [place] [address] Transcribed By: [facility] 04/07/23 1022 Dictated By: Esequiel Coto II, MD 04/07/23 1016 Signed By: 04/07/23 1022 [facility] XR lumbar spine AP/LAT/FLX/E XTon 04-07-2023 XR lumbar spine AP/LAT/FLX/EXT [facility] [place] [address] [place] [address] XRay Report Signed Patient: Rocio Pang MR#: [id number] : 1945 Acct:[id number] Age/Sex: 77 / M ADM Date: 04/07/23 Loc: [facility] Room: Type: [facility] Attending Dr: Chuck Hamm MD Copies to: Chuck Hamm MD Ordering Provider: Chuck Hamm MD Date of Service: 04/07/23 XR/XR lumbar spine AP/LAT/FLX/EXT: Lumbar radiculopathy;Chronic pain;Lumbar degenerative disc d AP with lateral neutral, flexion and extension views of the Lumbar Spine HISTORY: Low back pain and bilateral leg radiculopathy and weakness. COMPARISON: None POSTSURGICAL CHANGES: None BONY ALIGNMENT: No hypermobility. Mild degenerative listhesis. FRACTURE: None DEGENERATIVE CHANGES: Moderate spondylosis and greatest at the L3-4 level. Extensive lower lumbar hypertrophic facet changes. SOFT TISSUES: Atherosclerosis. BONY MINERALIZATION:Adequat e XR/XR lumbar spine AP/LAT/FLX/EXT IMPRESSION: No hypermobility. Moderate degenerative change. Impression dictated by: Seun Mittal M.D.04/07/2023 11:58 AM Dictation Location: [place] [address] Transcribed By: [facility] 04/07/23 1158 Dictated By: Seun Mittal DO 04/07/23 1142 Signed By: 04/07/23 1158 [facility] Patient Educationon 03-12-20 Patient Education Urology Benign Prostatic Hyperplasia Benign prostatic hyperplasia (BPH) is an enlarged prostate gland that is caused by the normal aging process. The prostate may get bigger as a man gets older. The condition is not caused by cancer. The prostate is a walnut-sized gland that is involved in the production of semen. It is located in front of the rectum and below the bladder. The bladder stores urine. The urethra carries stored urine out of the body. An enlarged prostate can press on the urethra. This can make it harder to pass urine. The buildup of urine in the bladder can cause infection. Back pressure and infection may progress to bladder damage and kidney (renal) failure. What are the causes? This condition is part of the normal aging process. However, not all men develop problems from this condition. If the prostate enlarges away from the urethra, urine flow will not be blocked. If it enlarges toward the urethra and compresses it, there will be problems passing urine. What increases the risk? This condition is more likely to develop in men older than 50 years. What are the signs or symptoms? Symptoms of this condition include: ? Getting up often during the night to urinate. ? Needing to urinate frequently during the day. ? Difficulty starting urine flow. ? Decrease in size and strength of your urine stream. ? Leaking (dribbling) after urinating. ? Inability to pass urine. This needs immediate treatment. ? Inability to completely empty your bladder. ? Pain when you pass urine. This is more common if there is also an infection. ? Urinary tract infection (UTI). How is this diagnosed? This condition is diagnosed based on your medical history, a physical exam, and your symptoms. Tests will also be done, such as: ? A post-void bladder scan. This measures any amount of urine that may remain in your bladder after you finish urinating. ? A digital rectal exam. In a rectal exam, your health care provider checks your prostate by putting a lubricated, gloved finger into your rectum to feel the back of your prostate gland. This exam detects the size of your gland and any abnormal lumps or growths. ? An exam of your urine (urinalysis). ? A prostate specific antigen (PSA) screening. This is a blood test used to screen for prostate cancer. ? An ultrasound. This test uses sound waves to electronically produce a picture of your prostate gland. Your health care provider may refer you to a specialist in kidney and prostate diseases (urologist). How is this treated? Once symptoms begin, your health care provider will monitor your condition (active surveillance or watchful waiting). Treatment for this condition will depend on the severity of your condition. Treatment may include: ? Observation and yearly exams. This may be the only treatment needed if your condition and symptoms are mild. ? Medicines to relieve your symptoms, including: ? Medicines to shrink the prostate. ? Medicines to relax the muscle of the prostate. ? Surgery in severe cases. Surgery may include: ? Prostatectomy. In this procedure, the prostate tissue is removed completely through an open incision or with a laparoscope or robotics. ? Transurethral resection of the prostate (TURP). In this procedure, a tool is inserted through the opening at the tip of the penis (urethra). It is used to cut away tissue of the inner core of the prostate. The pieces are removed through the same opening of the penis. This removes the blockage. ? Transurethral incision (TUIP). In this procedure, small cuts are made in the prostate. This lessens the prostate's pressure on the urethra. ? Transurethral microwave thermotherapy (TUMT). This procedure uses microwaves to create heat. The heat destroys and removes a small amount of prostate tissue. ? Transurethral needle ablation (TUNA). This procedure uses radio frequencies to destroy and remove a small amount of prostate tissue. ? Interstitial laser coagulation (ILC). This procedure uses a laser to destroy and remove a small amount of prostate tissue. ? Transurethral electrovaporization (TUVP). This procedure uses electrodes to destroy and remove a small amount of prostate tissue. ? Prostatic urethral lift. This procedure inserts an implant to push the lobes of the prostate away from the urethra. Follow these instructions at home: ? Take mlnb-lie-wcpryll and prescription medicines only as told by your health care provider. ? Monitor your symptoms for any changes. Contact your health care provider with any changes. ? Avoid drinking large amounts of liquid before going to bed or out in public. ? Avoid or reduce how much caffeine or alcohol you drink. ? Give yourself time when you urinate. ? Keep all follow-up visits. This is important. Contact a health care provider if: ? You have unexplained back pain. ? Your symptoms do not get better with treatment. ? You develop side effects from the medicine (more content not included)... Normal [facility] Urology Office/Clinic Noteon 03-12-2023 Urology Office/Clinic Note Chief Complaint personal hx of prostate cancer HPI Staff 1 year with PSA. Previous dx of BPH with urinary obstruction, personal hx of prostate cancer (EBRT 12/2020). Current PSA done 12/28/[address] Richards is 0.34 and previous done 05/11/22 was 0.36. Pt has Flomax but states that he only takes 2 pills 1x a month when he needs it. Dysuria: no Incomplete bladder emptying: no Hematuria: no Frequency: no Urgency: no Nocturia: pt states he might only get up 1x a month Stream: no straining or intermittency Leaking: no Post void dripping: yes Wearing pads/ Depends: no Urge incontinence: no Stress incontinence: no Incontinence without Sensory Awareness: no Abdominal pain: no Flank pain: back pain due to ruptured disk Sexual complaints: no History of Present Illness Tests reviewed: reviewed UA and PSA I have reviewed the previous health record information and history for this patient from Dr. Phan. I have reviewed and verified the staff HPI to be accurate for this encounter. There have been no associated fever, chills, flank pain, or blood in the urine. Denies any urinary infections since last encounter. Review of Systems PHQ Score Initial Depression Screen Score: 0 ROS - Provider Constitutional: denies weight loss, denies hot flashes. Eyes: denies eye problems. Gastrointestinal: denies nausea, denies vomiting. Cardiovascular: denies chest pain or angina. Integumentary: no dryness Musculoskeletal: denies musculoskeletal symptoms. ENMT: denies otolaryngeal symptoms. Respiratory: no shortness of breath. Heme/Lymph: denies easy bleeding tendency, denies easy bruising tendency. Psychiatric: no confusion, no anxiety. Genitourinary: See HPI. Physical Exam Vitals & Measurements HR: 63(Peripheral) RR: 16 BP: 128/70 HT: 68 in HT: 172 cm WT: 93.1 kg WT: 204.82 lb BMI: 31.47 General Appearance: alert, no distress, well nourished, well developed male. Assessment/Plan 1. BPH with urinary obstruction (N40.1: Benign prostatic hyperplasia with lower urinary tract symptoms) Pt is currently taking Tamsulosin 0.4mg PRN therapy. He only takes 2 pills 1x a month when he needs it. UA today is negative for blood and infection. Pt states that he gets up 1x a night, but its not too bothersome and he knows he can take his Flomax. Advised pt that if this gets too bothersome he can take a daily dose of Flomax. Pt states that he has no other bothersome urinary problems. Patient to continue taking Tamsulosin. All questions and concerns were discussed and answered with patient today. He acknowledges understanding. Will continue to monitor. PSA ordered and given to pt. 2. Personal history of prostate cancer (Z85.46: Personal history of malignant neoplasm of prostate) S/p TRUS w/bx 03/28/20 and patient finished Radiation treatments with Dr Leal in 12/2020. Pt was unable to get [place] [employer] implant due to anatomy. PSA 04/29/21 - 0.51 11/03/21 - 0.38 05/11/22 - 0.36 12/28/22 - 0.34 Educated pt on his PSA levels. Levels remain low and stable since radiation. Follow up in 1 yr w/ PSA. All questions/concerns were discussed. Pt to call the office if he encounters any issues prior. Pt acknowledges understanding. Follow-up With When Contact Information ANA MARIA PADILLA, MARIA LUISA Hoang In 1 year [facility] [address], [place] [address]- Additional Instructions: w/ PSA Patient Education Benign Prostatic Hyperplasia I, Emely Maynard, personally scribed for Dr. Phan on 03/12/2023 09:07:51. . Documentation recorded by the scribe, Emely Maynard, accurately reflects the services(s) I performed and decisions made by me. Problem List/Past Medical History Ongoing BPH with urinary obstruction Diabetes Dysuria Elevated PSA Flank pain Former smoker History of kidney stones Microscopic hematuria Nocturia Personal history of prostate cancer Prostate cancer Prostatitis Solitary right kidney Straining to void Weak urinary stream Historical No qualifying data Procedure/Surgical History Radiation therapy care (12/21/2020), Transrectal biopsy of prostate (03/28/2020), Transrectal biopsy of prostate using ultrasound (US) guidance (04/16/2011), Removal of ureteral stent (07/28/2007), Laser ablation of prostate (07/12/2007), Nephrectomy (10/10/2001), Appendectomy, Tonsillectomy. Medications Albuterol (Eqv-ProAir HFA) 90 mcg/inh inhalation aerosol calcium (as carbonate)-vitamin D 90 mg-25 mcg (1000 intl units) oral tablet, Oral, Daily Januvia 100 mg Tab metformin 500 mg oral tablet Pataday Once Daily Relief 0.2% ophthalmic solution Percocet 2.5 mg-325 mg oral tablet, Oral, q6hr tamsulosin 0.4 mg Cap Allergies Grass (Unknown) Social History Tobacco - Denies Tobacco Use, 05/19/2021 Never (less than 100 in lifetime) Tobacco Use:. Never Smokeless Tobacco Use:., 05/22/2019 Family History My (more content not included)... Normal [facility] Comment on above: Result Comment: Elec tronically Signed By: Bernardo PHAN MD\.br\Date and Time Signed: 03/12/23 09:09 EDT\.br\Electronically Co-Signed By: Emely Maynard\.br\Date and Time Co-Signed: 03/12/23 09:08 EDT Alanine aminotransferase [En zymatic activity/volume] in Serum or PlasmaOrdered By: Jillian Edwards on 12-25-2022 ALT [Catalytic activity/Vol] 22 U/L 7-52 [facility] Albumin [Mass/volume] in Ser um or Plasma by Bromocresol green (BCG) dye binding methoOrdered By: Jillian Edwards on 12-25-2022 Albumin BCG dye [Mass/Vol] 4.3 g/dL 3.5-5.7 [facility] Alkaline phosphatase [Enzyma tic activity/volume] in Serum or PlasmaOrdered By: Jillian Edwards on 12-25-2022 ALP [Catalytic activity/Vol] 44 U/L 34-104 [facility] Aspartate aminotransferase [ Enzymatic activity/volume] in Serum or PlasmaOrdered By: Jillian Edwards 12-25-2022 AST [Catalytic activity/Vol] 20 U/L 13-39 [facility] Bilirubin Test strip Ql (U)O rdered By: Jillian Edwards on 12-25-2022 Bilirubin Ql (U) Negative Negative [facility] Bilirubin.total [Mass/volume ] in Serum or PlasmaOrdered By: Jillian Edwards on 12-25-2022 Bilirubin [Mass/Vol] 0.7 mg/dL 0.3-1.0 [facility] Calcium [Mass/volume] in Ser um or PlasmaOrdered By: Jillian Edwards on 12-25-2022 Calcium [Mass/Vol] 8.7 mg/dL 8.6-10.3 [facility] Carbon dioxide, total [Moles /volume] in Serum or PlasmaOrdered By: Jillian Edwards on 12-25-2022 CO2 [Moles/Vol] 27.0 mmol/L 21.0-31.0 [facility] Chloride [Moles/volume] in S elias or PlasmaOrdered By: Jillian Edwards on 12-25-2022 Chloride [Moles/Vol] 104 mmol/L 98-107 [facility] Color Auto (U)Ordered By: Mihai Edwards on 12-25-2022 Color (U) Yellow Yellow [facility] Comprehensive Metabolic Pane danya 12-25-2022 Albumin [Mass/Vol] 4.3 g/dL Normal 3.5-5.7 [facility] Comment on above: Order Comment: Reaso n for Exam Single kidney;Chronic kidney disease, stage II (mild);Diabet Performed By: #### U AMBER, CMP, PHOS, [id number] #### [facility] [address] Albumin/Globulin [Mass ratio] 1.7 {ratio} Normal [facility] Comment on above: Order Comment: Reaso n for Exam Single kidney;Chronic kidney disease, stage II (mild);Diabet Performed By: #### U AMBER, CMP, PHOS, [id number] #### [facility] [address] [place] [address] [place] ALP [Catalytic activity/Vol] 44 U/L Normal 34-104 [facility] Comment on above: Order Comment: Reaso n for Exam Single kidney;Chronic kidney disease, stage II (mild);Diabet Performed By: #### U AMBER, CMP, PHOS, [id number] #### [facility] [address] [place] [id number] [place] ALT [Catalytic activity/Vol] 22 U/L Normal 7-52 [facility] Comment on above: Order Comment: Reaso n for Exam Single kidney;Chronic kidney disease, stage II (mild);Diabet Performed By: #### U AMBER, CMP, PHOS, [id number] #### [facility] [address] Anion gap [Moles/Vol] 11.1 mmol/L Normal 6.0-15.0 [facility] Comment on above: Order Comment: Reaso n for Exam Single kidney;Chronic kidney disease, stage II (mild);Diabet Performed By: #### U AMBER, CMP, PHOS, [id number] #### [facility] [address] AST [Catalytic activity/Vol] 20 U/L Normal 13-39 [facility] Comment on above: Order Comment: Reaso n for Exam Single kidney;Chronic kidney disease, stage II (mild);Diabet Performed By: #### U AMBER, CMP, PHOS, [id number] #### [facility] [address] Bilirubin [Mass/Vol] 0.7 mg/dL Normal 0.3-1.0 [facility] Comment on above: Order Comment: Reaso n for Exam Single kidney;Chronic kidney disease, stage II (mild);Diabet Performed By: #### U AMBER, CMP, PHOS, [id number] #### [facility] [address] [place] [address] Calcium [Mass/Vol] 8.7 mg/dL Normal 8.6-10.3 [facility] Comment on above: Order Comment: Reaso n for Exam Single kidney;Chronic kidney disease, stage II (mild);Diabet Performed By: #### U AMBER, CMP, PHOS, [id number] #### [facility] [address] [place] [id number] [facility] Chloride [Moles/Vol] 104 mmol/L Normal 98-107 [facility] Comment on above: Order Comment: Reaso n for Exam Single kidney;Chronic kidney disease, stage II (mild);Diabet Performed By: #### U AMBER, CMP, PHOS, [id number] #### [facility] [address] [place], [place] [id number] [facility] CO2 [Moles/Vol] 27.0 mmol/L Normal 21.0-31.0 [facility] Comment on above: Order Comment: Reaso n for Exam Single kidney;Chronic kidney disease, stage II (mild);Diabet Performed By: #### U AMBER, CMP, PHOS, [id number] #### [facility] [address] Creatinine [Mass/Vol] 1.25 mg/dL Normal 0.70-1.30 [facility] Comment on above: Order Comment: Reaso n for Exam Single kidney;Chronic kidney disease, stage II (mild);Diabet Performed By: #### U AMBER, CMP, PHOS, [id number] #### [facility] [address] GFR/1.73 sq M.predicted MDRD (S/P/Bld) [Vol rate/Area] 59.308 mL/min/{1.73_m2} [facility] Comment on above: Order Comment: Reaso n for Exam Single kidney;Chronic kidney disease, stage II (mild);Diabet Performed By: #### U AMBER, CMP, PHOS, [id number] #### [address] Globulin (S) [Mass/Vol] 2.5 g/dL Normal [facility] Comment on above: Order Comment: Reaso n for Exam Single kidney;Chronic kidney disease, stage II (mild);Diabet Performed By: #### U AMBER, CMP, PHOS, [id number] #### [facility] [address] [place] [address] Glucose [Mass/Vol] 141 mg/dL High 70-100 [facility] Comment on above: Order Comment: Reaso n for Exam Single kidney;Chronic kidney disease, stage II (mild);Diabet Result Comment: [place] Glucose Reference Range is dependent on time and content of last meal. Glucose of more than 200 mg/dL in a nonstressed, ambulatory subject supports the diagnosis of Diabetes Mellitus. ADA recommended reference range Performed By: #### U AMBER, CMP, PHOS, [id number] #### [address] Potassium [Moles/Vol] 4.1 mmol/L Normal 3.5-5.1 [facility] Comment on above: Order Comment: Reaso n for Exam Single kidney;Chronic kidney disease, stage II (mild);Diabet Performed By: #### U AMBER, CMP, PHOS, [id number] #### [facility] [address] Protein [Mass/Vol] 6.8 g/dL Normal 6.4-8.9 [facility] Comment on above: Order Comment: Reaso n for Exam Single kidney;Chronic kidney disease, stage II (mild);Diabet Performed By: #### U AMBER, CMP, PHOS, [id number] #### [facility] [address] Sodium [Moles/Vol] 138 mmol/L Normal 136-145 [facility] Comment on above: Order Comment: Reaso n for Exam Single kidney;Chronic kidney disease, stage II (mild);Diabet Performed By: #### U AMBER, CMP, PHOS, [id number] #### [facility] [address] [place] [address] [place] Urea nitrogen [Mass/Vol] 18 mg/dL Normal 7-25 [facility] Comment on above: Order Comment: Reaso n for Exam Single kidney;Chronic kidney disease, stage II (mild);Diabet Performed By: #### U AMBER, CMP, PHOS, [id number] #### [facility] [address] [place] [address] Creatinine [Mass/volume] in Serum or PlasmaOrdered By: Jillian Edwards on 12-25-2022 Creatinine [Mass/Vol] 1.25 mg/dL 0.70-1.30 [facility] Creatinine [Mass/volume] in UrineOrdered By: Jillian Edwards on 12-25-2022 Creatinine (U) [Mass/Vol] 143.0 mg/dL 14.0-26.0 [facility] Erythrocyte distribution wid th Auto (RBC) [Ratio]Ordered By: Jillian Edwards on 12-25-2022 Erythrocyte distribution width (RBC) [Ratio] 13.5 % 12.0-14.8 [facility] Globulin Calc (S) [Mass/Vol] Ordered By: Jillian Edwards on 12-25-2022 Globulin (S) [Mass/Vol] 2.5 g/dL [facility] Glucose [Mass/volume] in Ser um or PlasmaOrdered By: Jillian Edwards on 12-25-2022 Glucose [Mass/Vol] 141 mg/dL 70-100 [facility] Comment on above: ADA recommended refe rence rangeRandom Glucose Reference Range is dependent on time and content of last meal. Glucose of more than 200 mg/dL in a nonstressed, ambulatory subject supports the diagnosis of Diabetes Mellitus. Hematocrit Auto (Bld) [Volum e fraction]Ordered By: Jillian Edwards on 12-25-2022 Hematocrit (Bld) [Volume fraction] 44.6 % 38.8-50.0 [facility] Hemoglobin [Mass/volume] in BloodOrdered By: Jillian Edwards on 12-25-2022 Hemoglobin (Bld) [Mass/Vol] 14.8 g/dL 13.0-17.0 [facility] Hemogram CBC Without Diffon 12-25-2022 Erythrocyte distribution width (RBC) [Ratio] 13.5 % Normal 12.0-14.8 [facility] Comment on above: Order Comment: Reaso n for Exam Single kidney;Chronic kidney disease, stage II (mild);Diabet Performed By: #### C BCNO #### [facility] [address] Hematocrit (Bld) [Volume fraction] 44.6 % Normal 38.8-50.0 [facility] Comment on above: Order Comment: Reaso n for Exam Single kidney;Chronic kidney disease, stage II (mild);Diabet Performed By: #### C BCNO #### [facility] [address] Hemoglobin (Bld) [Mass/Vol] 14.8 g/dL Normal 13.0-17.0 [facility] Comment on above: Order Comment: Reaso n for Exam Single kidney;Chronic kidney disease, stage II (mild);Diabet Performed By: #### C BCNO #### [facility] [address] MCH (RBC) [Entitic mass] 29.7 pg Normal 27.5-35.2 [facility] Comment on above: Order Comment: Reaso n for Exam Single kidney;Chronic kidney disease, stage II (mild);Diabet Performed By: #### C BCNO #### [address] MCV (RBC) [Entitic vol] 89.3 fL Normal 83.5-101 [facility] Comment on above: Order Comment: Reaso n for Exam Single kidney;Chronic kidney disease, stage II (mild);Diabet Performed By: #### C BCNO #### [address] Mean Corpuscular HGB Conc 33.3 g/dL Normal 32.5-35.6 [facility] Comment on above: Order Comment: Reaso n for Exam Single kidney;Chronic kidney disease, stage II (mild);Diabet Performed By: #### C BCNO #### [address] Platelet mean volume (Bld) [Entitic vol] 9.0 fL Normal 6.6-10.1 [facility] Comment on above: Order Comment: Reaso n for Exam Single kidney;Chronic kidney disease, stage II (mild);Diabet Result Comment: PERF ORMED BY: [place] [address] PATHOLOGIST MESS ATTENDANT CREW GENE RAGLAND M.D. Performed By: #### C BCNO #### [address] Platelets (Bld) [#/Vol] 165 10*3/uL Normal 150-450 [facility] Comment on above: Order Comment: Reaso n for Exam Single kidney;Chronic kidney disease, stage II (mild);Diabet Performed By: #### C BCNO #### [address] RBC (Bld) [#/Vol] 5.00 10*6/uL Normal 3.90-5.60 [facility] Comment on above: Order Comment: Reaso n for Exam Single kidney;Chronic kidney disease, stage II (mild);Diabet Performed By: #### C BCNO #### [facility] [address] WBC (Bld) [#/Vol] 6.4 10*3/uL Normal 4.1-10.5 [facility] Comment on above: Order Comment: Reaso n for Exam Single kidney;Chronic kidney disease, stage II (mild);Diabet Performed By: #### C BCNO #### [facility] [address] Ketones Auto test strip (U) [Mass/Vol]Ordered By: Jillian Edwards on 12-25-2022 Ketones (U) [Mass/Vol] Negative Negative [facility] Leukocytes [#/volume] correc jennifer for nucleated erythrocytes in Blood by Automated counOrdered By: Jillian Edwards on 12-25-2022 WBC corrected for nucl RBC Auto (Bld) [#/Vol] 6.4 10*3/uL 4.1-10.5 [facility] MCH Auto (RBC) [Entitic mass ]Ordered By: Jillian Edwards on 12-25-2022 MCH (RBC) [Entitic mass] 29.7 pg 27.5-35.2 [facility] MCHC Auto (RBC) [Mass/Vol]Or dered By: Jillian Edwards on 12-25-2022 MCHC (RBC) [Mass/Vol] 33.3 g/dL 32.5-35.6 [facility] MCV Auto (RBC) [Entitic vol] Ordered By: Jillian Edwards on 12-25-2022 MCV (RBC) [Entitic vol] 89.3 fL 83.5-101 [facility] Nitrite Test strip Ql (U)Ord ered By: Jillian Edwards on 12-25-2022 Nitrite Ql (U) Negative Negative [facility] No Panel InformationOrdered By: Jillian Edwards on 12-25-2022 Estimated GFR (CKD-EPI) 59.308 mL/Min [facility] Creatinine Clearance (Chem N/A [facility] Parathyrin.intact [Mass/volu me] in Serum or PlasmaOrdered By: Jillian Edwards on 12-25-2022 Parathyrin.intact [Mass/Vol] 75.8 pg/mL [facility] Parathyroid Hormone Intacton 12-25-2022 Parathyroid Hormone Intact 75.8 pg/mL Normal [facility] Comment on above: Order Comment: Reaso n for Exam Single kidney;Chronic kidney disease, stage II (mild);Diabet Result Comment: PERF ORMED BY: [facility] [address] [place] [address] PATHOLOGIST MESS ATTENDANT CREW GENE RAGLAND M.D. Performed By: #### P TH ####[facility] [address] [place] [address] Phosphate [Mass/volume] in S elias or PlasmaOrdered By: Jillian Edwards on 12-25-2022 Phosphate [Mass/Vol] 2.9 mg/dL 3.7-7.2 [facility] Phosphoruson 12-25-2022 Phosphate [Mass/Vol] 2.9 mg/dL Low 3.7-7.2 [facility] Comment on above: Order Comment: Reaso n for Exam Single kidney;Chronic kidney disease, stage II (mild);Diabet Performed By: #### U AMBER, CMP, PHOS, [id number] #### [facility] [address] Platelet mean volume Auto (B ld) [Entitic vol]Ordered By: Jillian Edwards on 12-25-2022 Platelet mean volume (Bld) [Entitic vol] 9.0 fL 6.6-10.1 [facility] Platelets Auto (Bld) [#/Vol] Ordered By: Jillian Edwards on 12-25-2022 Platelets (Bld) [#/Vol] 165 10*3/uL 150-450 [facility] Potassium [Moles/volume] in Serum or PlasmaOrdered By: Jillian Edwards on 12-25-2022 Potassium [Moles/Vol] 4.1 mmol/L 3.5-5.1 [facility] Protein Auto test strip (U) [Mass/Vol]Ordered By: Jillian Edwards on 12-25-2022 Protein (U) [Mass/Vol] Negative Negative [facility] Protein Creat Ratio Ur Rando mon 12-25-2022 Creatinine, Urine (Random) 143.0 mg/dL High 14.0-26.0 [facility] Comment on above: Order Comment: Reaso n for Exam Single kidney;Chronic kidney disease, stage II (mild);Diabet Performed By: #### P ROCRERAT #### [facility] [address] [place] [address] Protein (U) [Mass/Vol] 8 mg/dL Normal 0-9 [facility] Comment on above: Order Comment: Reaso n for Exam Single kidney;Chronic kidney disease, stage II (mild);Diabet Performed By: #### P ROCRERAT #### [facility] [address] [place] [address] Urine Protein/Creatinine Ratio 56 mg/g{Cre} Normal 0-200 [facility] Comment on above: Order Comment: Reaso n for Exam Single kidney;Chronic kidney disease, stage II (mild);Diabet Result Comment: PERF ORMED BY: [place] [address] PATHOLOGIST MESS ATTENDANT CREW GENE RAGLAND M.D. Performed By: #### P ROCRERAT #### [facility] [address] [place] [address] Protein [Mass/volume] in Ser um or PlasmaOrdered By: Jillian Edwards on 12-25-2022 Protein [Mass/Vol] 6.8 g/dL 6.4-8.9 [facility] Protein [Mass/volume] in Uri neOrdered By: Jillian Edwards on 12-25-2022 Protein (U) [Mass/Vol] 8 mg/dL 0-9 [facility] RBC Auto (Bld) [#/Vol]Ordere d By: Jillian Edwards on 12-25-2022 RBC (Bld) [#/Vol] 5.00 10*6/uL 3.90-5.60 [facility] Serum or plasma albumin/glob ulin mass ratioOrdered By: Jillian Edwards on 12-25-2022 Albumin/Globulin [Mass ratio] 1.7 {ratio} [facility] Serum or plasma anion gap de terminationOrdered By: Jillian Edwards on 12-25-2022 Anion gap [Moles/Vol] 11.1 mmol/L 6.0-15.0 [facility] Sodium [Moles/volume] in Ser um or PlasmaOrdered By: Jillian Edwards on 12-25-2022 Sodium [Moles/Vol] 138 mmol/L 136-145 [facility] Specific gravity Auto test s trip (U) [Rel density]Ordered By: Jillian Edwards on 12-25-2022 Specific gravity (U) [Rel density] 1.019 1.001-1.030 [facility] US renal RTon 12-25-2022 US renal RT [facility] [place] [address] Ultrasound Report Signed Patient: Rocio Pang MR#: [id number] : 1945 Acct:[id number] Age/Sex: 77 / M ADM Date: 12/25/22 Loc: Room: Type: [facility] Attending Dr: Jillian Edwards MD Ordering Provider: Jillian Edwards MD Date of Service: 12/25/22 US/US renal RT: Single kidney;Chronic kidney disease, stage II (mild);Diabet Copies to: Jillian Edwards MD Right RENAL AND BLADDER ULTRASOUND CLINICAL HISTORY: Chronic kidney disease. COMPARISON: None Estimation of renal size is approximately 13.01 cm on the right. Left kidney is surgically absent. No contour deforming mass, shadowing stone or hydronephrosis. Small cyst 1.3 cm. The urinary bladder is partially distended with a volume of 27.01 ml. No shadowing stone or focal lesion. No significant postvoid residual. Prostatomegaly. US/US renal RT IMPRESSION: NO ACUTE FINDINGS. PROSTATOMEGALY. Impression dictated by: Addison Weber Jr., Robson12/25/2022 11:36 AM Dictation Location: [place] [address] Tech: Ana Stark Transcribed By: CASI 12/25/22 1136 Dictated By: Addison Weber Jr, DO 12/25/22 1135 Signed By: 12/25/22 1136 Normal [facility] Urate [Mass/volume] in Serum or PlasmaOrdered By: Jillian Edwards on 12-25-2022 Urate [Mass/Vol] 7.6 mg/dL 2.4-7.6 [facility] Urea nitrogen [Mass/volume] in Serum or PlasmaOrdered By: Jillian Edwards on 12-25-2022 Urea nitrogen [Mass/Vol] 18 mg/dL 7-25 [facility] Uric Acidon 12-25-2022 Urate [Mass/Vol] 7.6 mg/dL Normal 2.4-7.6 [facility] Comment on above: Order Comment: Reaso n for Exam Single kidney;Chronic kidney disease, stage II (mild);Diabet Performed By: #### U AMBER, CMP, PHOS, [id number] #### [facility] [address] [place] [address] [place] Urinalysison 12-25-2022 Appearance (U) Clear Normal Clear [facility] Comment on above: Order Comment: Reaso n for Exam Single kidney;Chronic kidney disease, stage II (mild);Diabet Name Collection Type:: Clean-Voided Midstream Performed By: #### U A #### [facility] [address] [id number] [place] Bilirubin,Urine Negative Normal Negative [facility] Comment on above: Order Comment: Reaso n for Exam Single kidney;Chronic kidney disease, stage II (mild);Diabet Name Collection Type:: Clean-Voided Midstream Performed By: #### U A #### [facility] [address] [id number] [place] Color (U) Yellow Normal Yellow [facility] Comment on above: Order Comment: Reaso n for Exam Single kidney;Chronic kidney disease, stage II (mild);Diabet Name Collection Type:: Clean-Voided Midstream Performed By: #### U A #### [facility] [address] [place] [address] [place] Glucose Ql (U) Normal Normal Normal [facility] Comment on above: Order Comment: Reaso n for Exam Single kidney;Chronic kidney disease, stage II (mild);Diabet Name Collection Type:: Clean-Voided Midstream Performed By: #### U A #### [place] [address] [place] Ketones Ql (U) Negative Normal Negative [facility] Comment on above: Order Comment: Reaso n for Exam Single kidney;Chronic kidney disease, stage II (mild);Diabet Name Collection Type:: Clean-Voided Midstream Performed By: #### U A #### [facility] [address] [place] [address] [place] Leukocyte esterase Test strip Ql (U) Negative Normal Negative [facility] Comment on above: Order Comment: Reaso n for Exam Single kidney;Chronic kidney disease, stage II (mild);Diabet Name Collection Type:: Clean-Voided Midstream Performed By: #### U A #### [facility] [address] [place] [address] [place] Nitrite,Urine Negative Normal Negative [facility] Comment on above: Order Comment: Reaso n for Exam Single kidney;Chronic kidney disease, stage II (mild);Diabet Name Collection Type:: Clean-Voided Midstream Performed By: #### U A #### [facility] [address] [place] [address] [place] Occult Blood,Urine Negative Normal Negative [facility] Comment on above: Order Comment: Reaso n for Exam Single kidney;Chronic kidney disease, stage II (mild);Diabet Name Collection Type:: Clean-Voided Midstream Result Comment: PERF ORMED BY: [place] [address] PATHOLOGIST MESS ATTENDANT CREW GENE RAGLAND M.D. Performed By: #### U A #### [address] [id number] [place] pH (U) 5.5 [pH] Normal 5.0-9.0 [facility] Comment on above: Order Comment: Reaso n for Exam Single kidney;Chronic kidney disease, stage II (mild);Diabet Name Collection Type:: Clean-Voided Midstream Performed By: #### U A #### [facility] [address] [place] [address] Protein,Urine Negative Normal Negative [facility] Comment on above: Order Comment: Reaso n for Exam Single kidney;Chronic kidney disease, stage II (mild);Diabet Name Collection Type:: Clean-Voided Midstream Performed By: #### U A #### [facility] [address] [place] [address] Specificy Lindsay,Urine 1.019 Normal 1.001-1.030 [facility] Comment on above: Order Comment: Reaso n for Exam Single kidney;Chronic kidney disease, stage II (mild);Diabet Name Collection Type:: Clean-Voided Midstream Performed By: #### U A #### [facility] [address] [place] [address] Urobilinogen,Urine Normal Normal Normal [facility] Comment on above: Order Comment: Reaso n for Exam Single kidney;Chronic kidney disease, stage II (mild);Diabet Name Collection Type:: Clean-Voided Midstream Performed By: #### U A #### [facility] [address] [place] [address] Urine clarity by refractomet ry automatedOrdered By: Jillian Edwards on 12-25-2022 Clarity Refractometry automated (U) Clear Clear [facility] Urine glucose measurement by automated test strip (mass/volume)Ordered By: Jillian Edwards on 12-25-2022 Glucose Auto test strip (U) [Mass/Vol] Normal mg/dL Normal [facility] Urine hemoglobin detection b y automated test stripOrdered By: Jillian Edwards on 12-25-2022 Hemoglobin Auto test strip Ql (U) Negative Negative [facility] Urine leukocyte esterase det ection by automated test stripOrdered By: Jillian Edwards on 12-25-2022 Leukocyte esterase Auto test strip Ql (U) Negative Negative [facility] Urine protein/creatinine rat ioOrdered By: Jillian Edwards on 12-25-2022 Protein/Creatinine (U) [Ratio] 56 mg/g{Cre} 0-200 [facility] Urobilinogen Auto test strip (U) [Mass/Vol]Ordered By: Jillian Edwards on 12-25-2022 Urobilinogen (U) [Mass/Vol] Normal mg/dL Normal [facility] Vitamin D 25 Hydroxy Totalon 12-25-2022 Vitamin D 25 Hydroxy Total 24.7 ng/mL Low 30-100 [facility] Comment on above: Order Comment: Reaso n for Exam Single kidney;Chronic kidney disease, stage II (mild);Diabet Result Comment: JAMES MIN D STATUS 25(OH)VITAMIN D RANGE (ng/mL) Deficient <20 Insufficient 20 to <30 Sufficient 30 to 100 Reference: Bandar Bal, Gregg MERAZ, et al. Evaluation,treatment, and prevention of vitamin D deficiency; an Endocrine Society clinical practice guideline. JCEM. 2010; 96(7):1911-30. PERFORMED BY: [facility] [address] [place] [address] PATHOLOGIST MESS ATTENDANT CREW GENE RAGLAND M.D. Performed By: #### U AMBER, CMP, PHOS, [id number] ####[facility] [id number] [place] [address] [facility] Vitamin D+Metabolites [Mass/ volume] in Serum or PlasmaOrdered By: Jillian Edwards on 12-25-2022 Vitamin D+Metabolites [Mass/Vol] 24.7 ng/mL 30-100 [facility] Comment on above: VITAMIN D STATUS 25( [place])VITAMIN D RANGE (ng/mL) Deficient <20 Insufficient 20 to <30Sufficient 30 to 100Reference: Bandar Bal, Gregg EMRAZ, et al. Evaluation,treatment, and prevention of vitamin D deficiency; an Endocrine Society clinical practice guideline. JCEM. 2010; 96(7):1911-30. pH Auto test strip (U)Ordere d By: Jillian Edwards on 12-25-2022 pH (U) 5.5 [pH] 5.0-9.0 [facility] COVID/FLU/RSV RT-PCRon 08-28 SARS-CoV-2 (COVID-19) RNA GERMAN+probe Ql (Unsp spec) Negative [facility] Other COVID/FLU/RSV RT-PCR Negative [employer] Other Quick Strepon 08-28-2022 S. pyogenes Org specific cx Ql (Throat) Negative Code Fever Sc [employer] Other Quick Strep [facility] Other CT CSPINE WO CONon 2 CT CSPINE WO CON EXAMINATION: CT CSPI NE WO CON HISTORY: MUSCLE WEAKNESS (GENERALIZED) ; left neck pain when turning head which is increasing in severity; no known injury COMPARISON: No relevant comparison available. TECHNIQUE: Axial, Coronal, and Sagittal images were created without IV contrast. Dose reduction techniques were achieved by using automated exposure control and/or adjustment of mA and/or kV according to patient size and/or use of iterative reconstruction technique. FINDINGS: VERTEBRAL BODIES: Straightening of the normal lordotic curvature. No fracture or spondylolisthesis. FACET JOINTS: Multilevel moderate degenerative facet arthropathy, greatest at C2-C3 and C3-C4. Multilevel bone encroachment on the neural foramen. CERVICAL DISCS: Multilevel mild narrowing and uncovertebral joint spurring. Moderate narrowing C5-C6. Marked narrowing C6-C7. Marked narrowing of the right C5-C6, C6-C7 neural foramen, and left C6-C7 neural foramen. Multilevel moderate foramen narrowing. CENTRAL CANAL: Suspect moderate-marked narrowing C5-C6, C6-C7. PARASPINAL AREA: No visible mass. IMPRESSION: 1. 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 Consider MRI for further evaluation. Electronically authenticated by: NATHAN URENA Date: 2022-03-11 14:35 Normal [facility] SARS-CoV-2 (COVID-19) RNA NA A+probe Ql (Resp)on 02-28-2022 SARS-CoV-2 (COVID-19) RNA GERMAN+probe Ql (Unsp spec) Negative [facility] Other [facility]24 SARS-CoV-2 (COVID-19) RNA GERMAN+probe Ql (Unsp spec) Not detected Normal NOT DETECTED [facility] Comment on above: Result Comment: This test is not yet approved or cleared by the [place] FDA. When there are no FDA-approved or cleared tests available, and other criteria are met, FDA can make tests available under an emergency access mechanism called an Emergency Use Authorization (EUA). The EUA for this test is supported by the [place] of Health and Human Service's (HHS's) declaration that circumstances exist to justify the emergency use of in vitro diagnostics for the detection and/or diagnosis of the virus that causes COVID-19. This EUA will remain in effect (meaning this test can be used) for the duration of the COVID-19 declaration justifying emergency of IVDs, unless it is terminated or revoked by FDA (after which the test may no longer be used). When diagnostic testing is negative, the possibility of a false negative should be considered in the context of a patient's recent exposures and the presence of clinical signs and symptoms consistent with SARS-CoV-2. Performed By: #### C [facility] #### [facility] [address] [place] [address] Dr. Livier Johnson COVID Quick Testingon 2020 Result Negative Code Fever [facility] [employer] Other Vital Signs Date Time Vital Sign Value Performing Clinician Facility 12-29-2023 10:16-0400 Body temperature 97.39 [degF] SHIRLEY Leal MD Work Phone: [facility] 12-29-2023 10:16-0400 Body weight 91.5 kg SHIRLEY Leal MD Work Phone: [facility] 12-29-2023 10:16-0400 Diastolic blood pressure 79 mm[Hg] SHIRLEY Leal MD Work Phone: [facility] 12-29-2023 10:16-0400 Heart rate 67 /min SHIRLEY Leal MD Work Phone: [facility] 12-29-2023 10:16-0400 Respiratory rate 18 /min SHIRLEY Leal MD Work Phone: [facility] 12-29-2023 10:16-0400 SaO2% (BldA) [Mass fraction] 96 % SHIRLEY Leal MD Work Phone: [facility] 12-29-2023 10:16-0400 Systolic blood pressure 156 mm[Hg] SHIRLEY Leal MD Work Phone: [facility] 11-03-2023 08:32-0400 Diastolic blood pressure 75 mm[Hg] Goyo Coleman MD PhD Work Phone: [facility] 11-03-2023 08:32-0400 Heart rate 67 /min Goyo Coleman MD PhD Work Phone: [facility] 11-03-2023 08:32-0400 Systolic blood pressure 150 mm[Hg] Goyo Coleman MD PhD Work Phone: [facility] 09-15-2023 08:40-0500 Body height 175.26 cm [employer] Other [facility] Other 09-15-2023 08:40-0500 Body mass index (BMI) [Ratio] 29.21 kg/m2 [employer] Other [facility] Other 09-15-2023 08:40-0500 Body temperature 96.1 [degF] Azcandy [employer] Other [facility] Other 09-15-2023 08:40-0500 Body weight 89.72 kg Aziz [employer] Other [facility] Other 09-15-2023 08:40-0500 Diastolic blood pressure 72 mm[Hg] Aziz [employer] Other [facility] Other 09-15-2023 08:40-0500 Respiratory rate 18 /min Jillian Edwards Other [facility] Other 09-15-2023 08:40-0500 SaO2% (BldA) [Mass fraction] 97 % Jillian Edwards Other [facility] Other 09-15-2023 08:40-0500 Systolic blood pressure 128 mm[Hg] Jillian Edwards Other [facility] Other 03-05-2023 12:15-0400 Body height 175.26 cm Chuck Hamm Other [facility] Other 03-05-2023 12:15-0400 Body mass index (BMI) [Ratio] 28.68 kg/m2 Chuck Hamm Other [facility] Other 03-05-2023 12:15-0400 Body weight 88.09 kg Chuck Hamm Other [facility] Other 03-05-2023 12:15-0400 SaO2% (BldA) [Mass fraction] 98 % Chuck Hamm Other [facility] Other 02-27-2023 10:35-0400 Body height 175.26 cm Karine Melissa Other [facility] Other 02-27-2023 10:35-0400 Body mass index (BMI) [Ratio] 29.65 kg/m2 Karine Torres Other [facility] Other 02-27-2023 10:35-0400 Body temperature 98.3 [degF] Karine Torres Other [facility] Other 02-27-2023 10:35-0400 Body weight 91.08 kg Karine Torres Other [facility] Other 02-27-2023 10:35-0400 Diastolic blood pressure 69 mm[Hg] Karine Torres Other [facility] Other 02-27-2023 10:35-0400 Respiratory rate 18 /min Karine Torres Other [facility] Other 02-27-2023 10:35-0400 SaO2% (BldA) [Mass fraction] 94 % Karine Torres Other [facility] Other 02-27-2023 10:35-0400 Systolic blood pressure 135 mm[Hg] Karine Torres Other [facility] Other 01-20-2023 11:20-0400 Body height 175.26 cm Jillian [facility] [employer] Other [facility] Other 01-20-2023 11:20-0400 Body mass index (BMI) [Ratio] 29.3 kg/m2 Jillian [employer] Other [facility] Other 01-20-2023 11:20-0400 Body temperature 97.2 [degF] Jillian [employer] Other [facility] Other 01-20-2023 11:20-0400 Body weight 89.99 kg Jillian [employer] Other [facility] Other 01-20-2023 11:20-0400 Diastolic blood pressure 74 mm[Hg] Jillian Edwards Other [facility] Other 01-20-2023 11:20-0400 Respiratory rate 18 /min Jillian Edwards Other [facility] Other 01-20-2023 11:20-0400 SaO2% (BldA) [Mass fraction] 96 % Jillian Edwards Other [facility] Other 01-20-2023 11:20-0400 Systolic blood pressure 124 mm[Hg] Jillian Edwards Other [facility] Other 12-31-2022 13:21-0400 Body temperature 97.5 [degF] SHIRLEY Leal MD Work Phone: [facility] 12-31-2022 13:21-0400 Body weight 92.81 kg SHIRLEY Leal MD Work Phone: [facility] 12-31-2022 13:21-0400 Diastolic blood pressure 74 mm[Hg] SHIRLEY Leal MD Work Phone: [facility] 12-31-2022 13:21-0400 Heart rate 69 /min SHIRLEY Leal MD Work Phone: [facility] 12-31-2022 13:21-0400 Respiratory rate 18 /min SHIRLEY Leal MD Work Phone: [facility] 12-31-2022 13:21-0400 SaO2% (BldA) [Mass fraction] 97 % SHIRLEY Leal MD Work Phone: [facility] 12-31-2022 13:21-0400 Systolic blood pressure 152 mm[Hg] SHIRLEY Leal MD Work Phone: [facility] 08-28-2022 10:30-0500 Body height 175.26 cm Karine Torres Other [facility] Other 08-28-2022 10:30-0500 Body mass index (BMI) [Ratio] 28.79 kg/m2 Karine Torres Other [facility] Other 08-28-2022 10:30-0500 Body temperature 99.3 [degF] Karine Torres Other [facility] Other 08-28-2022 10:30-0500 Body weight 88.45 kg Karine Torres Other [facility] Other 08-28-2022 10:30-0500 Respiratory rate 18 /min Karine Torres Other [facility] Other 08-28-2022 10:30-0500 SaO2% (BldA) [Mass fraction] 97 % Karine Torres Other [facility] Other 06-24-2022 11:00-0400 Body height 175.26 cm Jillian [employer] Other [facility] Other 06-24-2022 11:00-0400 Body mass index (BMI) [Ratio] 29.86 kg/m2 Jillian [employer] Other [facility] Other 06-24-2022 11:00-0400 Body temperature 96.7 [degF] Miha[employer] Other [facility] Other 06-24-2022 11:00-0400 Body weight 91.72 kg Mihaicandy [employer] Other [facility] Other 06-24-2022 11:00-0400 Diastolic blood pressure 67 mm[Hg] Azcandy [employer] Other [facility] Other 06-24-2022 11:00-0400 Respiratory rate 18 /min Jillian Edwards Other [facility] Other 06-24-2022 11:00-0400 SaO2% (BldA) [Mass fraction] 96 % Jillian Edwards Other [facility] Other 06-24-2022 11:00-0400 Systolic blood pressure 136 mm[Hg] Jillian Edwards Other [facility] Other 03-09-2022 10:02-0400 Blood Pressure Location [employer] [facility] 03-09-2022 10:02-0400 Diastolic blood pressure 68 mm[Hg] Bernardo [employer] [facility] 03-09-2022 10:02-0400 Heart rate 68 /min Bernardo [employer] [facility] 03-09-2022 10:02-0400 Systolic blood pressure 136 mm[Hg] Bernardo [employer] [facility] 03-06-2022 10:45-0400 Body height 175.26 cm Chuck Hamm Other [facility] Other 03-06-2022 10:45-0400 Body mass index (BMI) [Ratio] 29.18 kg/m2 Chuck Hamm Other [facility] Other 03-06-2022 10:45-0400 Body weight 89.63 kg Chuck Hamm Other [facility] Other 03-06-2022 10:45-0400 Diastolic blood pressure 68 mm[Hg] Chuck Hamm Other [facility] Other 03-06-2022 10:45-0400 SaO2% (BldA) [Mass fraction] 95 % Chuck Hamm Other [facility] Other 03-06-2022 10:45-0400 Systolic blood pressure 126 mm[Hg] Chuck Hamm Other [facility] Other 02-28-2022 10:30-0400 Body height 175.26 cm Karine Romanmond Other [facility] Other 02-28-2022 10:30-0400 Body mass index (BMI) [Ratio] 28.79 kg/m2 Karine Melissa Other [facility] Other 02-28-2022 10:30-0400 Body temperature 98.4 [degF] Karine Melissa Other [facility] Other 02-28-2022 10:30-0400 Body weight 88.45 kg Karine Romanmond Other [facility] Other 02-28-2022 10:30-0400 Respiratory rate 18 /min Karine Melissa Other [facility] Other 02-28-2022 10:30-0400 SaO2% (BldA) [Mass fraction] 96 % Karine Torres Other [facility] Other 10-17-2021 13:00-0500 Body height 175.26 cm Chuck Hamm Other [facility] Other 10-17-2021 13:00-0500 Body mass index (BMI) [Ratio] 30.03 kg/m2 Chuck Hamm Other [facility] Other 10-17-2021 13:00-0500 Body weight 92.26 kg Chuck Hamm Other [facility] Other 10-17-2021 13:00-0500 Diastolic blood pressure 70 mm[Hg] Chuck Hamm Other [facility] Other 10-17-2021 13:00-0500 SaO2% (BldA) [Mass fraction] 98 % Chuck Hamm Other [facility] Other 10-17-2021 13:00-0500 Systolic blood pressure 118 mm[Hg] Chuck Hamm Other [facility] Other 06-14-2021 10:00-0400 Body height 175.26 cm Jenn Thomas Other [facility] Other 05-23-2021 13:30-0400 Body height 175.26 cm Karine Torres Other [facility] Other 05-23-2021 13:30-0400 Body mass index (BMI) [Ratio] 30.27 kg/m2 Karine Torres Other [facility] Other 05-23-2021 13:30-0400 Body temperature 97.1 [degF] Karine Torres Other [facility] Other 05-23-2021 13:30-0400 Body weight 92.99 kg Karine Torres Other [facility] Other 05-23-2021 13:30-0400 Respiratory rate 16 /min Karine Torres Other [facility] Other 05-23-2021 13:30-0400 SaO2% (BldA) [Mass fraction] 94 % Karine Torres Other [facility] Other Encounters Encounter Date Encounter Type Care Provider Facility Start: 03-10-2024 ambulatory Bernardo Crane ty:[facility] Start: 12-29-2023 End: 12-29-2023 ambulatory NATAN KEYES Facility:[facility] Start: 12-29-2023 End: 12-29-2023 Patient encounter procedure Stanley Leal MD Work Phone: [facility] Comment on above: History of prostate cancer (Primary Dx) Start: 12-28-2023 End: 12-28-2023 ambulatory WANDA Espinoza TIFFANIE Not Available Start: 11-12-2023 End: 11-12-2023 ambulatory [facility] Start: 11-12-2023 End: 11-12-2023 Postop follow up visit related to original px Goyo Coleman MD PhD Work Phone: [facility] Comment on above: Melanoma in situ of forehead (CMS/HCC); Encounter for change or removal of nonsurgical wound dressing Start: 11-03-2023 End: 11-03-2023 ambulatory GOYO [facility] Start: 11-03-2023 End: 11-03-2023 Patient encounter procedure Goyo Coleman MD PhD Work Phone: [facility] Comment on above: Melanoma in situ of forehead (CMS/HCC) Start: 09-27-2023 Bamboo flowsheet Julian lucas DRY CHARGE PROCESS 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 Work Phone: [facility] Start: 09-27-2023 Bamboo flowsheet Julian lucas DRY CHARGE PROCESS 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 Work Phone: [facility] Start: 09-27-2023 End: 09-27-2023 ambulatory JULIAN HEBERT Not Available Start: 09-21-2023 End: 09-21-2023 ambulatory Jillian Edwards Other [facility] Other Start: 09-21-2023 Telephone encounter Jillian Edwards [facility] Start: 09-15-2023 Office outpatient vi sit 15 minutes Jillian Edwards [facility] Start: 09-15-2023 End: 09-15-2023 ambulatory Rugen M [place] Facility:[facility] Start: 09-15-2023 End: 09-15-2023 ambulatory MD Natan Keyes Work Phone: [facility] Other Start: 09-15-2023 End: 09-15-2023 Patient encounter procedure MD Natan Keyes Work Phone: [facility] [address] [place] Work Phone: Start: 07-07-2023 ambulatory Sudheer Leei ty:PEPE Domingo Start: 07-05-2023 Patient encounter procedure Julian Hebert DRY CHARGE PROCESS 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 Work Phone: [facility] Start: 07-05-2023 End: 07-05-2023 ambulatory RUGEN M STEPHY Not Available Start: 05-20-2023 End: 05-20-2023 ambulatory Rugen M [place] Facility:[facility] Start: 05-20-2023 End: 05-20-2023 ambulatory MD Natan Keyes Work Phone: [facility] Work Phone: Start: 05-20-2023 End: 05-20-2023 Patient encounter procedure MD Natan Keyes Work Phone: [facility]-Flu Vaccine Start: 04-07-2023 End: 04-07-2023 ambulatory Natan Keyes Facility:[facility] Start: 04-07-2023 End: 04-07-2023 Patient encounter procedure MD Natan Keyes Work Phone: [facility]MRI [address] Work Phone: Start: 03-12-2023 End: 03-13-2023 ambulatory Bernardo PHAN Facility:[facility] Start: 03-05-2023 End: 03-05-2023 ambulatory Chuck Hamm Other [facility] Other Start: 03-05-2023 Office outpatient vi sit 25 minutes Chuck Hamm [facility] [place] Start: 02-27-2023 End: 02-27-2023 ambulatory Karine Torres Other [facility] Other Start: 02-27-2023 Office outpatient vi sit 15 minutes Karine Melissa [facility] Start: 01-20-2023 End: 01-20-2023 ambulatory Aziz Bakhous Other [facility] Other Start: 01-20-2023 Office outpatient vi sit 25 minutes Aziz Bakhous [facility] Start: 12-31-2022 End: 12-31-2022 Patient encounter procedure Stanley Leal MD Work Phone: [facility] Comment on above: History of prostate cancer (Primary Dx) Start: 12-25-2022 End: 12-25-2022 ambulatory Natan Keyes Facility:[facility] Start: 12-25-2022 End: 12-25-2022 ambulatory MD Natan Keyes Work Phone: [facility] Work Phone: Start: 12-25-2022 End: 12-25-2022 Patient encounter procedure MD Natan Keyes Work Phone: [facility]trasound [facility] [place] Work Phone: Start: 08-28-2022 End: 08-28-2022 ambulatory Karine Torres Other [facility] Other Start: 08-28-2022 Office outpatient vi sit 25 minutes Karinekrystal Torres [facility] Start: 06-24-2022 End: 06-24-2022 ambulatory Azcandy Edwards Other [facility] Other Start: 06-24-2022 Office outpatient ne w 30 minutes Jillian Hos [facility] Start: 03-12-2022 End: 03-12-[address] NATAN KEYES Facility:[facility] Start: 03-11-2022 End: 03-11-[address] NATAN KEYES Facility:[facility] Start: 03-09-2022 End: 03-09-2022 Patient encounter procedure Bernardo PHAN [facility] Start: 03-06-2022 End: 03-06-2022 ambulatory Chuck Hamm Other [facility] Other Start: 03-06-2022 Office outpatient vi sit 15 minutes Chuck Hamm [facility] [place] Start: 02-28-2022 End: 02-28-2022 ambulatory Karine Torres Other [facility] Other Start: 02-28-2022 Office outpatient vi sit 15 minutes Karine Torres [facility] Start: 02-12-2022 (Procedure) Mari[facility] Hamm [facility] Start: 02-12-2022 End: 02-12-2022 ambulatory Chuck Hamm Other [facility] Other Start: 12-01-2021 Refill G Yobani lemos MD Work Phone: [facility] Comment on above: Refill Request Start: 10-17-2021 End: 10-17-2021 ambulatory Chuck Hamm Other [place] [employer] Other Start: 10-17-2021 Office outpatient vi sit 15 minutes Chuck Thompsonky [facility] [place] Start: 08-22-2021 ambulatory MARY AKKINA Facility:[facility] Start: 06-17-2021 End: 06-17-[address] NATAN KEYES Facility:[facility] Start: 06-14-2021 Office outpatient vi sit 15 minutes Jenn Thomas [facility] Start: 05-23-2021 Office outpatient vi sit 15 minutes Karine Torres [facility] Start: 04-23-2021 ambulatory MARY AKKINA Facility:H 1 Start: 04-08-2020 End: 04-08-2020 Documentation procedure External Provider [facility] Start: 04-08-2020 External Correspondence External Pro vider External-Non[facility] Start: 04-08-2020 End: 04-08-2020 Patient encounter procedure External Provider [facility] Start: 04-08-2020 Results Only External Provider Exter nal-NonCCF Procedures Date Procedure Procedure Detail Performing Clinician Start: 12-24-2023 PSA screening [facility] Provi shadia Start: 11-12-2023 FOLLOW UP IN DERMATOLOGY GOYO COLEMAN Start: 11-03-2023 SHADIA NURSING COMMUNIC ATION - LIDOCAINE INJ GOYO COLEMAN Start: 11-03-2023 MOHS SURGERY GOYO VIEYRAL Start: 11-03-2023 MOHS SURGERY Goyo ferrell MD PhD Work Phone: Start: 04-07-2023 MR lumbar spine wo con MD Natan Keyes Work Phone: Start: 04-07-2023 X-ray of lumbar spin e, four views MD Natan Keyes Work Phone: Start: 12-25-2022 Ultrasonography of r ight kidney MD Natan Keyes Work Phone: Start: 11-04-2021 Adult depression scr eening assessment NA Mel PADILLA Work Phone: Start: 12-21-2020 Radiation therapy care Bernardo PHAN Start: 04-08-2020 EXTERNAL IMAGING Spool Sander al Provider Start: 04-08-2020 End: 04-08-2020 EXTERNAL LAB External Provider Start: 04-08-2020 EXTERNAL PROCEDURE Exte rnal Provider Start: 03-28-2020 Transrectal biopsy o f prostate Bernardo PHAN Start: 04-16-2011 Transrectal biopsy o f prostate using ultrasound guidance Bernardo PHAN Comment on above: TRUS bx/cysto Start: 07-28-2007 Removal of ureteral stent Bernardo PHAN Start: 07-12-2007 Laser ablation of prostate Bernardo PHAN Start: 10-10-2001 Total nephrectomy Génesis PHAN Comment on above: left side ( no date recorded) Appendectomy Bernardo PHAN Tonsillectomy Bernardo PHAN Plan of Treatment Date Care Activity Detail Author Start: 12-28-2024 End: 03-29-2025 Prostate specific Ag [Mass/volume] in Serum or Plasma PROSTATE-SPECIFIC ANTIGEN DIAGNOSTIC Lab Routine History of prostate cancer Expected: 12/28/2024 (Approximate), Expires: 03/29/2025 [facility] Work Phone: Comment on above: Expected: 12/28/2024 (Approximate), Expires: 03/29/2025 Start: 12-27-2024 End: 12-27-2024 Patient encounter procedure 12/27/2024 9:45 AM EDT Office Visit Radiation Oncology [address] [place] [address] [place] [address] Stanley Leal MD [address] [place] [address] [place] [address] 1 Yr Follow Up labs [facility] Radiation Oncology Comment on above: 1 Yr Follow Up labs [facility] Start: 11-16-2024 Glaucoma screening Diabetes: R etinopathy Screening [facility] Start: 07-05-2024 Medicare Annual Wellness (AWV) Medicare Annual Wellness (AWV) [facility] Start: 07-04-2024 Pneumococcal Vaccine : 65+ Years (2 - PPSV23 or PCV20) Pneumococcal Vaccine: 65+ Years (2 - PPSV23 or PCV20) [facility] Comment on above: Postponed from 08/15 (Other Patient Reasons) Start: 02-05-2024 DIABETES SCREEN DIABETES SCREEN [facility] Start: 01-01-2024 End: 03-02-2024 Prostate specific Ag [Mass/volume] in Serum or Plasma PSA/PROSTSPECAG DIAG Lab Routine History of prostate cancer Expected: 01/01/2024, Expires: 03/02/2024 [facility] Work Phone: Comment on above: Expected: 01/01/2024 , Expires: 03/02/2024 Start: 11-12-2023 End: 11-12-2023 Patient encounter procedure 11/12/2023 11:00 AM EDT Office Visit [facility] [address] [id number] Goyo Coleman MD PhD [address], [address] [address] [facility] Start: 10-05-2023 Hemoglobin A1c measurement Diabetes: Hemoglobin A1C [facility] Start: 08-23-2023 Advance Directive Discussion Advance Directive Discussion [facility] Start: 08-23-2023 Behavioral Health Screening Behavioral Health Screening [facility] Start: 04-23-2023 COVID-19 Vaccine ( season) COVID-19 Vaccine () [facility] Start: 04-23-2023 Influenza vaccination INFLUENZ A (Season Ended) [facility] Start: 11-04-2022 Adult depression screening assessment DEPRESSION SCREENING [facility] Start: 08-23-2022 ADVANCE DIRECTIVE DISCUSSION ADVANCE DIRECTIVE DISCUSSION [facility] Start: 08-23-2022 DEPRESSION ASSESSMENT DEPRESSION ASS ESSMENT [facility] Start: 09-10-2021 COVID-19 VACCINE (4 - Booster for Moderna series) COVID-19 VACCINE (4 - Booster for Moderna series) [facility] Start: 08-23-2021 ADVANCE DIRECTIVE DISCUSSION ADVANCE DIRECTIVE DISCUSSION [facility] Start: 06-20-2020 Pneumococcal Vaccine : 65+ (2 of 2 - PPSV23 or PCV20) Pneumococcal Vaccine: 65+ (2 of 2 - PPSV23 or PCV20) [facility] Start: 06-20-2020 Pneumococcal Vaccine : 65+ Years (2 - PPSV23 or PCV20) Pneumococcal Vaccine: 65+ Years (2 - PPSV23 or PCV20) [facility] Start: 04-23-2020 Influenza vaccination INFLUENZA (#1) [facility] Start: 2010 ADVANCE DIRECTIVE DISCUSSION ADVANCE DIRECTIVE DISCUSSION [facility] Start: 2010 PNEUMOCOCCAL: 65+ (1 - PCV) PNEUMOCOCCAL: 65+ (1 - PCV) [facility] Start: 2010 PNEUMOVAX AGE 65 AND OVER WITH 5YR LOOKBACK (#1) PNEUMOVAX AGE 65 AND OVER WITH 5YR LOOKBACK (#1) [facility] Start: 05-16-2006 LIPID SCREEN LIPID SCREEN [facility] Start: 2005 RSV Vaccine (1 - 1-d ose 60+ series) RSV Vaccine (1 - 1-dose 60+ series) [facility] Start: 10-12-2004 DIABETES SCREEN DIABETES SCREEN [facility] Start: 10-12-2004 Diabetes Screening Diabetes Screenin g [facility] Start: 10-30-1995 SHINGRIX VACCINE (1 of 2) SHINGRIX VACCINE (1 of 2) [facility] Start: 10-30-1995 Tuberculosis screening COLOREC HAROLDO CANCER SCREENING,SEE MODIFIER [facility] Start: 10-30-1995 Zoster Vaccines (1 o f 2) Zoster Vaccines (1 of 2) [facility] Start: 10-30-1967 DTaP/Tdap/Td Vaccine s (1 - Tdap) DTaP/Tdap/Td Vaccines (1 - Tdap) [facility] Start: 1964 Urine microalbumin profile [facility] Start: 10-30-1963 Hepatitis C screening Hepatitis C Sc germaine [facility] Start: 05-01-1946 Examination of skin Derm Melan mayra Skin Check [facility] Start: 1945 Lipid panel Lipid Panel [facility] Start: 1945 Yearly Adult Physical Yearly Adult P [facility] Immunizations Immunization Date Immunization Notes Care Provider Haseeb magana 05-20-2023 influenza, injectable, quadrivalent, preservative free Julian Felter DRY CHARGE PROCESS 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 Work Phone: [facility] 06-02-2022 influenza, high dose seasonal, preservative-free Julian Felter DRY CHARGE PROCESS 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 Work Phone: [facility] 06-11-2021 influenza, injectable, quadrivalent, preservative free Julian Felter DRY CHARGE PROCESS 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 Work Phone: [facility] 11-01-2020 COVID-19 vaccine, full dose (MODERNA) SHIRLEY Leal MD Work Phone: [facility] 10-04-2020 COVID-19 vaccine, full dose (MODERNA) SHIRLEY Leal MD Work Phone: [facility] 06-05-2020 influenza, seasonal, injectable Julian Felter DRY CHARGE PROCESS 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 Work Phone: [facility] 05-24-2020 Influenza, High-dose Seasonal, Quadrivalent, Preservative Free Julian Felter DRY CHARGE PROCESS 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 Work Phone: [facility] 06-20-2019 influenza, high dose seasonal, preservative-free Julian Felter DRY CHARGE PROCESS 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 Work Phone: [facility] 06-20-2019 Influenza, High-dose Seasonal, Quadrivalent, Preservative Free Julian Felter DRY CHARGE PROCESS 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 Work Phone: [facility] 06-20-2019 pneumococcal conjugate vaccine, 13 valent Julian Felter DRY CHARGE PROCESS 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 Work Phone: [facility] 06-05-2019 influenza, seasonal, injectable Julian Felter DRY CHARGE PROCESS 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 Work Phone: [facility] 06-20-2018 influenza, high dose seasonal, preservative-free Julian Felter DRY CHARGE PROCESS 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 Work Phone: [facility] 06-20-2018 Influenza, High-dose Seasonal, Quadrivalent, Preservative Free Julian Hebert DRY CHARGE PROCESS 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 Work Phone: [facility] 06-24-2017 influenza, seasonal, injectable Julian Hebert DRY CHARGE PROCESS 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 Work Phone: [facility] 06-24-2017 pneumococcal Conjugate, unspecified formulation Julian Hebert DRY CHARGE PROCESS 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 Work Phone: [facility] 06-23-2017 influenza virus vaccine, split virus (incl. purified surface antigen) Julian Hebert DRY CHARGE PROCESS 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 Work Phone: [facility] 06-11-2015 influenza, injectable, quadrivalent, preservative free Julian Hebert DRY CHARGE PROCESS 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 Work Phone: [facility] NEGATED: Highlighted row has not occurred!03-09-2022 SARS-CoV-2 mRNA (tozinameran 5y-11y) vaccine Bernardo PHAN [facility] Payers Date Payer Category Payer Self-pay [id number] 2020 Medicare [id number] 2020 Unknown HOSPITAL/MEDICAL GENERIC MEDICAL GENERIC [id number] 2020-Present [phone] [address] [address] [place] [address] Indemnity [id number] 2020 Unknown [id number] 2010 Medicare [id number] 1959 Medicare [id number] 1959 Private Health Insurance [id number] 1959 Self-pay [id number] 1959 Unknown [id number] 1945 Unknown [id number] 2.16.840.1.760811.3.579.2 .593 1945 Unknown [id number] 2.16.840.1.373993.3.579.2 .593 1945 Unknown [id number] 2.16.840.1.230785.3.579.2 .593 1945 Unknown [id number] 2.16.840.1.051584.3.579.2 .593 1945 Unknown [id number] 2.16.840.1.185327.3.579.2 .593 1945 Unknown [id number] 2.16.840.1.956348.3.579.2 .1244 1945 Unknown [id number] 2.16.840.1.066241.3.579.2 .1244 1945 Unknown [id number] 2.16.840.1.765659.3.579.2 .1259 1945 Unknown [id number] 2.16.840.1.608520.3.579.2 .1259 1945 Unknown [id number] 2.16.840.1.044832.3.579.2 .1259 1945 Unknown [id number] 2.16.840.1.637883.3.579.2 .727 1945 Unknown [id number] 2.16.840.1.345525.3.579.2 .727 1945 Unknown [id number] 2.16.840.1.303591.3.579.2 .727 Medicare Medicare Nonpatient [id number] Unknown [id number] 2.16.840.1.715793.3.579.2 .531 Unknown [id number] 2.16.840.1.750134.3.579.2 .531 Unknown [id number] 2.16.840.1.775306.3.579.2 .531 Unknown [id number] 2.16.840.1.149373.3.579.2 .531 Social History Date Type Detail Facility Tobacco smoking status CTIS Unknown if ever smoked [facility] Start: 1945 Sex Assigned At Not on file [facility] Exposure to SARS-CoV-2 (event) Unable to assess [facility] Start: 04-17-2020 End: 05-20-2022 Tobacco smoking status NHIS Never smoked tobacco [facility] Start: 04-17-2020 End: 05-20-2022 Tobacco use and exposure Smokeless tobacco non-user [facility] Start: 05-06-2021 End: 12-31-2022 Alcohol intake Current drinker of alcohol (finding) [facility] Start: 04-17-2020 History SDOH Alcohol Frequency 2 [facility] Start: 10-25-2021 End: 11-12-2023 Exposure to SARS-CoV-2 (event) Not sure [facility] Start: 12-31-2022 End: 07-04-2023 Sex Assigned At [employer] Other Tobacco smoking status Never [facility] Start: 1945 Sex Assigned At Male F [facility] Start: 07-04-2023 Alcohol intake Lifetime non-d lula (finding) [facility] Start: 12-31-2022 End: 07-04-2023 History of Social function [facility] Start: 03-19-2023 Sexual orientation Heterosexual (fin sheryl) [facility] Tobacco smoking status CTIS Tobacco smoking consumption unknown [facility] Work Phone: How often to you hav e a drink containing alcohol? Monthly or less [facility] NEGATED: Highlighted rowStart: NINF History of tobacco use Passive smoker [facility] Functional Status Date Assessment Result Facility 03-09-2022 Functional Status N/A [facility] Clinical Notes 05-23-2021 to 12-29-2023 Stanley Leal MD - 12/29/2023 10:22 AM Dora Hansen RN - 12/29/2023 10:17 AM Dora Hansen RN - 12/29/2023 10:17 AM Huey Perez RN - 11/12/2023 11:00 AM EDT Note Date & Type Note Facility 12-29-2023 Note HNO ID: [id number] Author: Stanley LEAL MD Service: ? 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 RADIATION SUMMARY: DATES OF TREATMENT: 11/26/2020- 01/02/2021 AREA TREATED: Pelvis/ Prostate DELIVERED DOSE: Area: Pelvis/ Prostate 7,000 cGy in 28 fractions, 2 Arcs, IMRT, 10 MV with daily CBCT TOTAL: 7,000 cGy in 28 fractions ELAPSED TIME: 37 days. INTERVAL HISTORY:Doing well denies new problems or concerns. 05/20/22:Doing fairly well. Denies any new problems or concerns other than some chronic low back pain due to known ruptured disc. 11/04/21: Doing well. Staying active. He did have some diarrhea periodically earlier this year however this is resolved after taking some probiotics. PSA HISTORY: 12/24/2023 0.35 PSA (ng/mL) Date Value 12/28/2022 0.34 05/11/2022 0.36 11/03/2021 0.38 04/29/2021 0.51 01/28/2021 0.54 11/19/2020 0.88 PSA Screening (ng/mL) Date Value 05/16/2001 2.1 PSA. (no units) Date Value 12/24/2023 0.35 ALLERGIES No Known Allergies metFORMIN (GLUCOPHAGE) 500 mg tablet Take 500 mg by mouth daily with breakfast. Cholecalciferol, Vitamin D3, 50 mcg (2,000 unit) cap Take by mouth. JANUVIA 100 mg tablet TAKE 1 TABLET BY MOUTH EVERY DAY FOR 30 DAYS diphenhydramine HCl (BENADRYL ALLERGY ORAL) Take by mouth. loperamide HCl (IMODIUM ORAL) Take by mouth as needed. REVIEW OF SYSTEMS: D/N = 4-12/21 Hematuria: none Dysuria: none Incontinence: none Urgency: none Catheter use: none Medications to aid urination: y - Total AUA Score: 8 Bowel movement frequency: 1/day Bowel movement quality: normal Blood per emesis left neck: none PHYSICAL EXAM: BP 156/79 Pulse 67 Temp 36.3 ?C (97.4 ?F) Resp 18 Wt 91.5 kg (201 lb 11.5 oz) SpO2 96% KPS: 100 General appearance: Alert and oriented. No acute distress. Rectal exam def Extremities: No deformities, edema, skin discoloration, clubbing or cyanosis. Lymph Nodes: No cervical lymphadenopathy, No supraclavicular lymphadenopathy, No axillary lymphadenopathy. Skin: Skin color, texture, turgor normal, no suspicious rashes or lesions. 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 Patient continues to do very well. PSA remains low. No significant post radiation related problems. Plan to see patient back in 1 year with PSA. Signed by: Stanley Leal MD cc: Natan Keyes MD Portions of the above note extracted and edited from previous visit as well as active information included in the EMR. 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 RADIATION SUMMARY: DATES OF TREATMENT: 11/26/2020- 01/02/2021 AREA TREATED: Pelvis/ Prostate DELIVERED DOSE: Area: Pelvis/ Prostate 7,000 cGy in 28 fractions, 2 Arcs, IMRT, 10 MV with daily CBCT TOTAL: 7,000 cGy in 28 fractions ELAPSED TIME: 37 days. INTERVAL HISTORY:Doing well denies new problems or concerns. 05/20/22:Doing fairly well. Denies any new problems or concerns other than some chronic low back pain due to known ruptured disc. 11/04/21: Doing well. Staying active. He did have some diarrhea periodically earlier this year however this is resolved after taking some probiotics. PSA HISTORY: 12/24/2023 0.35 PSA (ng/mL) Date Value 12/28/2022 0.34 05/11/2022 0.36 11/03/2021 0.38 04/29/2021 0.51 01/28/2021 0.54 11/19/2020 0.88 PSA Screening (ng/mL) Date Value 05/16/2001 2.1 PSA. (no units) Date Value 12/24/2023 0.35 ALLERGIES No Known Allergies metFORMIN (GLUCOPHAGE) 500 mg tablet Take 500 mg by mouth daily with breakfast. Cholecalciferol, Vitamin D3, 50 mcg (2,000 unit) cap Take by mouth. JANUVIA 100 mg tablet TAKE 1 TABLET BY MOUTH EVERY DAY FOR 30 DAYS diphenhydramine HCl (BENADRYL ALLERGY ORAL) Take by mouth. loperamide HCl (IMODIUM ORAL) Take by mouth as needed. REVIEW OF SYSTEMS: D/N = 4-12/21 Hematuria: none Dysuria: none Incontinence: none Urgency: none Catheter use: none Medications to aid urination: y - Total AUA Score: 8 Bowel movement frequency: 1/day Bowel movement quality: normal Blood per emesis left neck: none PHYSICAL EXAM: BP 156/79 Pulse 67 Temp 36.3 C (97.4 F) Resp 18 Wt 91.5 kg (201 lb 11.5 oz) SpO2 96% KPS: 100 General appearance: Alert and oriented. No acute distress. Rectal exam def Extremities: No deformities, edema, skin discoloration, clubbing or cyanosis. Lymph Nodes: No cervical lymphadenopathy, No supraclavicular lymphadenopathy, No axillary lymphadenopathy. Skin: Skin color, texture, turgor normal, no suspicious rashes or lesions. 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 Patient continues to do very well. PSA remains low. No significant post radiation related problems. Plan to see patient back in 1 year with PSA. Signed by: Stanley Leal MD cc: Natan Keyes MD Portions of the above note extracted and edited from previous visit as well as active information included in the EMR. documented in this encounter [facility] 12-29-2023 Nurse Note MIESHA Khanna RN [facility] 12-29-2023 Nurse Note MIESHA Khanna RN documented in this encounter [facility] 11-12-2023 History of Present illness Narrative Images from the original note were not included. Office Follow Up Note Visit Summary Chief Complaint 1. Complaint Wound check. Rocio Pang is a 78 y.o. male who presents for 1 week follow up after surgery for a melanoma. The patient has no concerns today. Location Operation site location: right yarsani On exam, Mr. Pang is well-appearing and in no apparent distress. The surgical site appears clean with minimal to no erythema. No tenderness and good wound edge apposition. Assessment and Plan: History of skin cancer requiring ongoing monitoring for recurrence and additional lesion development. The patient was reassured that the wound is healing slowly due to some brown granulation tissue on top. Pt asked about wound care routine and pt states he has been using hand registered clinical dietitian to clean wound. Pt advised to use mild soap and water instead as the alcohol is killing the new growing cells. He also stated he was letting the wound air out at times and we reeducated on keeping it covered and coated in Vaseline at all times. Pt demonstrated understanding. The dressing was removed, the wound cleaned a a new dressing reapplied. The patient was advised on the importance of routine skin monitoring including follow up with general dermatology and instructed to call with any further concerns. The patient will return as needed. documented in this encounter [facility] Work Phone: 11-03-2023 History of Present illness Narrative Images from the original note were not included. Office Visit Note Date: 11/03/2023 Surgeon: Goyo Coleman MD PhD Office Location: [address] [facility] [address] Dept: [phone] Dept Referring Provider: Julian Hebert APRN-BOAT CARPENTER [address] [facility] [address] [place] [address] Subjective Rocio Pang is a 78 y.o. male who presents for the following: MOHS Surgery (Right Forehead, MIS) According to the patient, the lesion has been present for approximately greater than 1 year at the time of diagnosis. The lesion is not causing symptoms. The lesion has not been treated previously. The patient does not have a pacemaker / defibrillator. The patient does not have a heart valve / joint replacement. The patient is not on blood thinners. The patient does not have a history of hepatitis B or C. The patient does not have a history of HIV. The patient does not have a history of immunosuppression (e.g. organ transplantation, malignancy, medications) Review of Systems: No other skin or systemic complaints other than what is documented elsewhere in the note. MEDICAL HISTORY: clinically relevant history including significant past medical history, medications and allergies was reviewed and documented in Epic. Objective Well appearing patient in no apparent distress; mood and affect are within normal limits. Vital signs: See record. Noted on the Left Forehead Is a 2.0 x 4.2 cm scar The patient confirmed the identified site. Discussion: The nature of the diagnosis was explained. The lesion is a skin cancer. It has a risk of local growth and distant spread. The condition is associated with sun exposure. Warning signs of non-melanoma skin cancer discussed. Patient was instructed to perform monthly self skin examination. We recommended that the patient have regular full skin exams given an increased risk of subsequent skin cancers. The patient was instructed to use sun protective behaviors including use of broad spectrum sunscreens and sun protective clothing to reduce risk of skin cancers. Risks, benefits, side effects of Mohs surgery were discussed with patient and the patient voiced understanding. It was explained that even though the cure rate of Mohs is very high it is not 100%. Risks of surgery including but not limited to bleeding, infection, numbness, nerve damage, and scar were reviewed. Discussion included wound care requirements, activity restrictions, likely scar outcome and time to heal. After Mohs surgery, the defect may need to be repaired surgically and the scar may be longer than the original lesion. Reconstruction options, risks, and benefits were reviewed including second intention healing, linear repair (4-1 ratio was explained), local flaps, skin grafts, cartilage grafts and interpolation flaps (the need for multiple surgeries was explained). Possible outcomes were reviewed including likely scar appearance, failure of flap survival, infection, bleeding and the need for revision surgery. The pathology was reviewed, the photograph was reviewed, and the referring physician's note was reviewed. Patient elected for Mohs surgery. Mohs Surgery Operative Note Date of Surgery: 11/03/2023 Surgeon: Goyo Coleman MD PhD Office Location: [address] [facility] [id number] Dept: [phone] Dept Referring Provider: Julian Hebert, DRY CHARGE PROCESS 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 [address] [facility] [address] [place] [address] Assessment/Plan Pre-procedure: Obtained informed consent: written from patient The surgical site was identified and confirmed with the patient. Intra-operative: Audible time out called at : 3:46 PM 11/03/23 by: Inés Pate MA Verified patient name, birthdate, site, specimen bottle label & requisition. The planned procedure(s) was again reviewed with the patient. The risks of bleeding, infection, nerve damage and scarring were reviewed. Written authorization was obtained. The patient identity, surgical site, and planned procedure(s) were verified. The provider acted as both surgeon and pathologist. Melanoma in situ of forehead (CMS/HCC) Left Forehead Mohs surgery Consent obtained: written [place] Protocol: Procedure explained and questions answered to patient or proxy's satisfaction: Yes Test results available and properly labeled: Yes Pathology report reviewed: Yes External notes reviewed: Yes Photo or diagram used for site identification: Yes Site/side marked: Yes Slide independently reviewed by Mohs surgeon: Yes Immediately prior to procedure a time out was called: Yes Patient identity confirmed: verbally with patient Preparation: Patient was prepped and draped in usual sterile fashion Anticoagulation: Is the patient taking prescription anticoagulant and/or aspirin prescribed/recommended by a physician? No Was the anticoagulation regimen changed prior to Mohs? No Anesthesia: Anesthesia method: local infiltration Local anesthetic: lidocaine 1% WITH epi and sodium bicarbonate Procedure Details: Biopsy accession number: [id number] Date of biopsy: 09/27/2023 Frozen section biopsy performed: No Specimen debulked: Yes Pre-Op diagnosis: melanoma Melanoma subtype: in situ Melanoma histologic subtype: lentigo maligna Surgery side: right Surgical site (from skin exam): Left Forehead Pre-operative length (cm): 2 Pre-operative width (cm): 4.2 Indications for Mohs surgery: anatomic location where tissue conservation is critical, tumor size greater than 2 cm and recurrence Previously treated? Yes Previous treatment type: excision Previous treatment type comment: [address] Pineda Micrographic Surgery Details: Post-operative length (cm): 5.5 Post-operative width (cm): 4 Number of Mohs stages: 1 Is this a complex case (associate members only): No Stage 1 Comments: The patient was brought into the operating room and placed in the procedure chair in the appropriate position. The area positive by previous biopsy was identified and confirmed with the patient. The area of clinically obvious tumor was debulked using a curette and/or scalpel as needed. An incision was made following the Mohs approach through the skin. The specimen was taken to the lab, divided into 8 piece(s) and appropriately chromacoded and processed. The clinically evident lesion was excised and taken to the lab and serially vertically sectioned and stained with hematoxylin and eosin and also immunostained with [place]-1. A 3 mm biopsy of adjacent tissue was taken and used to establish a baseline with hematoxylin and eosin and [place]-1 immunostains. The debulk showed melanoma in situ. The specimen was processed using immunostains with [place]-1. Tumor features identified on Mohs section: no tumor identified Depth of defect: subcutaneous fat Patient tolerance of procedure: tolerated well, no immediate complications Reconstruction: Was the defect reconstructed?: No (Defect to heal by secondary intention.) Fine/surface layer approximation (top stitches) Hemostasis achieved with: pressure and electrodesiccation Outcome: patient tolerated procedure well with no complications Post-procedure details: sterile dressing applied and wound care instructions given Dressing type: petrolatum, pressure dressing, Telfa pad and Hypafix Additional details: Melanoma Gi: Curative Intent: Yes Original Breslow Thickness: n/a - MIS Clinical margin width: Other - Mohs, individual anatomic or functional considerations per the NCCN guidelines Depth of excision: Other - Mohs, individual anatomic or functional considerations per the NCCN guidelines Discussion/Procedural Comments: Follow Up In Dermatology - Nurse Visit Repair: After a discussion with the patient regarding the options for wound closure, a decision was made to proceed with second intention healing. Dressing F/U: Surgifoam was placed in the wound. A pressure dressing was placed to help stabilize the wound and to minimize the risk of postoperative bleeding. Wound care was discussed, and the patient was given written post-operative wound care instructions. The final repair measured 5.5 cm x 4.0cm. Wound care was discussed, and the patient was given written post-operative wound care instructions. The patient will follow up with Goyo Coleman MD PhD as needed for any post operative problems or concerns, and will follow up with their primary custom tailor apprentice as scheduled. 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 Patient also could have mild diabetic nephropathy.. Serum creatinine 1.25 mg/dL. GFR 59. UA is benign. Patient has mild proteinuria with protein creatinine ratio 56 mg/g. Patient is not on RAAS blocking agent blood pressure and diabetes are well controlled. I asked the patient to avoid NSAIDs. Follow-up 6 months No lab for this visit. 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 Kidney function is stable . 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 On Januvia and metformin. Last hemoglobin A1c below 7%. Patient follows with his PCP for diabetes management Aug, Hypophosphatemia (IC D-10 - E83.39) Phosphorus level is low at 2.6. I will start the patient on phosphorus supplement Aug, Vitamin D deficiency (ICD-10 - E55.9) Vitamin D is low at 24. I asked the patient to take scyq-uyh-mypxocp vitamin D supplement 2000 units daily. I will recheck 25-hydroxy vitamin D next visit Aug, History of gout (ICD -10 - Z87.39) Patient has history of 1 episode of gout few years ago. Patient is currently off allopurinol. Uric acid 7.6. Advised low animal protein diet Aug, Renal cyst, right (I CD-10 - N28.1) Renal ultrasound revealed right renal cyst measuring 1.3 cm. No need for further work-up Aug, BPH without urinary obstruction (ICD-10 - N40.0) Renal ultrasound revealed prostatomegaly.No urinary obstructive symptoms. [facility] Other 07-14-2023 Evaluation note* Encounter Date Diagnosis Assessment Notes Treatment Notes Treatment Clinical Notes Feb, Chronic pain (ICD-10 - G89.29) Stable. Feb, Lumbar radiculopathy (ICD-10 - M54.16) 77 year old male here for follow up to discuss chronic pain. He voices complaints of bilateral hip pain with radiation down the anterior aspect of bilateral thighs to the knees and intermittently to the feet. He also voices complaints of intermittent low back pain with radiation down the left lower extremity to the foot. He is currently in physical therapy, I recommend he proceed with that as planned. In the meantime I will order updated imaging of the lumbar spine to further evaluate his pain . Feb, Lumbar degenerative disc disease (ICD-10 - M51.36) Follow up after imaging. [facility] Other 07-08-2023 Evaluation note* Encounter Date Diagnosis Assessment Notes Treatment Notes Treatment Clinical Notes Feb, Acute sinusitis, recurrence not specified, unspecified location (ICD-10 - J01.90) Drink plenty fluids, get plenty of rest. Take the amoxicillin with clavulanate as prescribed until gone. Take the Tessalon Perles as prescribed as needed for cough. Use the albuterol inhaler as prescribed as needed for cough or shortness of breath. Use the eyedrops as prescribed. 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 Patient also could have mild diabetic nephropathy.. Serum creatinine 1.25 mg/dL. GFR 59. UA is benign. Patient has mild proteinuria with protein creatinine ratio 56 mg/g. Patient is not on RAAS blocking agent blood pressure and diabetes are well controlled. I asked the patient to avoid NSAIDs. 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 Kidney function is stable . 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 On Januvia and metformin. Last hemoglobin A1c below 7%. 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 I will start the patient on phosphorus supplement December, Vitamin D deficiency (ICD-10 - E55.9) Vitamin D is low at 24. I asked the patient to take gxev-uuh-arkpsno vitamin D supplement 2000 units daily. I will recheck 25-hydroxy vitamin D next visit December, History of gout (ICD -10 - Z87.39) Patient has history of 1 episode of gout few years ago. Patient is currently off allopurinol. Uric acid 7.6. Advised low animal protein diet December, Renal cyst, right (I CD-10 - N28.1) Renal ultrasound revealed right renal cyst measuring 1.3 cm. No need for further work-up December, BPH without urinary obstruction (ICD-10 - N40.0) Renal ultrasound revealed prostatomegaly.No urinary obstructive symptoms. 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 RADIATION SUMMARY: DATES OF TREATMENT: 11/26/2020- 01/02/2021 AREA TREATED: Pelvis/ Prostate DELIVERED DOSE: Area: Pelvis/ Prostate 7,000 cGy in 28 fractions, 2 Arcs, IMRT, 10 MV with daily CBCT TOTAL: 7,000 cGy in 28 fractions ELAPSED TIME: 37 days. INTERVAL HISTORY:Doing well denies new problems or concerns. 05/20/22:Doing fairly well. Denies any new problems or concerns other than some chronic low back pain due to known ruptured disc. 11/04/21: Doing well. Staying active. He did have some diarrhea periodically earlier this year however this is resolved after taking some probiotics. PSA HISTORY: PSA (ng/mL) Date Value 12/28/2022 0.34 05/11/2022 0.36 11/03/2021 0.38 04/29/2021 0.51 01/28/2021 0.54 11/19/2020 0.88 PSA Screening (ng/mL) Date Value 05/16/2001 2.1 ALLERGIES No Known Allergies metFORMIN (GLUCOPHAGE) 500 mg tablet Take 500 mg by mouth daily with breakfast. Cholecalciferol, Vitamin D3, 50 mcg (2,000 unit) cap Take by mouth. JANUVIA 100 mg tablet TAKE 1 TABLET BY MOUTH EVERY DAY FOR 30 DAYS diphenhydramine HCl (BENADRYL ALLERGY ORAL) Take by mouth. loperamide HCl (IMODIUM ORAL) Take by mouth as needed. REVIEW OF SYSTEMS: D/N = 4-5/ Hematuria: none Dysuria: none Incontinence: none Urgency: none Catheter use: none Medications to aid urination: y - Total AUA Score: 12 Bowel movement frequency: 1/day Bowel movement quality: normal Blood per emesis left neck: none PHYSICAL EXAM: BP 152/74 Pulse 69 Temp 36.4 C (97.5 F) Resp 18 Wt 92.8 kg (204 lb 9.6 oz) SpO2 97% KPS: 100 General appearance: Alert and oriented. No acute distress. Rectal exam def Extremities: No deformities, edema, skin discoloration, clubbing or cyanosis. Lymph Nodes: No cervical lymphadenopathy, No supraclavicular lymphadenopathy, No axillary lymphadenopathy. Skin: Skin color, texture, turgor normal, no suspicious rashes or lesions. 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 Patient continues to do very well. PSA remains low. No significant post radiation related problems. Plan to see patient back in 1 year with PSA. Signed by: Stanley Leal MD cc: Natan Keyes MD Portions of the above note extracted and edited from previous visit as well as active information included in the EMR. [facility] Encounter Date Diagnosis Assessment Notes Treatment Notes Treatment Clinical Notes Aug, Contact with and (suspected) exposure to other viral communicable diseases (ICD-10 - Z20.828) Aug, Viral upper respiratory illness (ICD-10 - J06.9) Viral upper respiratory infection: adult home care material was printed Drink plenty fluids, get plenty of rest. Take Tylenol or Motrin as needed for aches pains or fevers. Take Mucinex for congestion. Consider drinking warm tea with honey for comfort. Follow-up with your family physician if no improvement in 2 to 3 days. 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 Serum creatinine 1.1 mg/dL. Patient is at low risk for CKD progression if blood pressure and diabetes remain well controlled. I will check UA next visit. I asked the patient to avoid NSAIDs. Follow-up 6 months Jun, Diabetes mellitus type 2 in nonobese (ICD-10 - E11.9) Seems well controlled. On Januvia and metformin. Last hemoglobin A1c 7%. Patient follows with his PCP for diabetes management [facility] Other 07-18-2022 Hospital Discharge instructions Patient Education 03/09/2022 10:22:57 Calorie Counting for Weight Loss Calorie Counting for Weight Loss Calories are units of energy. Your body needs a certain amount of calories from food to keep you going throughout the day. When you eat more calories than your body needs, your body stores the extra calories as fat. When you eat fewer calories than your body needs, your body nolasco fat to get the energy it needs. Calorie counting means keeping track of how many calories you eat and drink each day. Calorie counting can be helpful if you need to lose weight. If you make sure to eat fewer calories than your bodyneeds, you should lose weight. Ask your health care provider what a healthy weight is for you. For calorie counting to work, you will need to eat the right number of calories in a day in order to lose a healthy amount of weight per week. A dietitian can help you determine how many calories youneed in a day and will give you suggestions on how to reach your calorie goal. A healthy amount of weight to lose per week is usually 1 2 lb (0.5 0.9 kg). This usually means thatyour daily calorie intake should be reduced by 500 750 calories. Eating 1,200 1,500 calories per day can help most women lose weight. Eating 1,500 1,800 calories per day can help most men lose weight. What is my plan? My goal is to have calories per day. If I have this many calories per day, I should lose around pounds per week. What do I need to know about calorie counting? In order to meet your daily calorie goal, you will need to: Find out how many calories are in each food you would like to eat. Try to do this before you eat. Decide how much of the food you plan to eat. Write down what you ate and how many calories it had. Doing this is called keeping a food log. To successfully lose weight, it is important to balance calorie counting with a healthy lifestyle that includes regular activity. Aim for 150 minutes of moderate exercise (such as walking) or 75 minutes of vigorous exercise (such as running) each week. Where do I find calorie information? The number of calories in a food can be found on a Nutrition Facts label. If a food does not have aNutrition Facts label, try to look up the calories online or ask your dietitian for help. Remember that calories are listed per serving. If you choose to have more than one serving of a food, you will have to multiply the calories per serving by the amount of servings you plan to eat. Forexample, the label on a package of bread might say that a serving size is 1 slice and that there are 90 calories in a serving. If you eat 1 slice, you will have eaten 90 calories. If you eat 2 slices, you will have eaten 180 calories. How do I keep a food log? Immediately after each meal, record the following information in your food log: What you ate. Don't forget to include toppings, sauces, and other extras on the food. How much you ate. This can be measured in cups, ounces, or number of items. How many calories each food and drink had. The total number of calories in the meal. Keep your food log near you, such as in a small notebook in your pocket, or use a mobile [place] or website. Some programs will calculate calories for you and show you how many calories you have left forthe day to meet your goal. What are some calorie counting tips? Use your calories on foods and drinks that will fill you up and not leave you hungry: ?Some examples of foods that fill you up are nuts and nut butters, vegetables, lean proteins, and high-fiber foods like whole grains. High-fiber foods are foods with more than 5 g fiber per serving. ?Drinks such as sodas, specialty coffee drinks, alcohol, and juices have a lot of calories, yet do not fill you up. Eat nutritious foods and avoid empty calories. Empty calories are calories you get from foods or beverages that do not have many vitamins or protein, such as candy, sweets, and soda. It is better to have a nutritious high-calorie food (such as an avocado) than a food with few nutrients (such as a bag of chips). Know how many calories are in the foods you eat most often. This will help you calculate calorie counts faster. Pay attention to calories in drinks. Low-calorie drinks include water and unsweetened drinks. Pay attention to nutrition labels for low fat or fat free foods. These foods sometimes have thesame amount of calories or more calories than the full fat versions. They also often have added sugar, starch, or salt, to make up for flavor that was removed with the fat. Find a way of tracking calories that works for you. Get creative. Try different apps or programs ifwriting down calories does not work for you. What are some portion control tips? Know how many calories are in a serving. This will help you know how many servings of a certain food you can have. Use a measuring cup to measure serving sizes. You could also try weighing out portions on a kitchenscale. With time, you will be able to estimate serving sizes for some foods. Take some time to put servings of different foods on your favorite plates, bowls, and cups so you know what a serving looks like. Try not to eat straight from a bag or box. Doing this can lead to overeating. Put the amount you would like to eat in a cup or on a plate to make sure you are eating the right portion. Use smaller plates, glasses, and bowls to prevent overeating. Try not to multitask (for example, watch TV or use your computer) while eating. If it is time to eat, sit down at a table and enjoy your food. This will help you to know when you are full. It will also help you to be aware of what you are eating and how much you are eating. What are tips for following this plan? Reading food labels Check the calorie count compared to the serving size. The serving size may be smaller than what youare used to eating. Check the source of the calories. Make sure the food you are eating is high in vitamins and proteinand low in saturated and trans fats. Shopping Read nutrition labels while you shop. This will help you make healthy decisions before you decide to purchase your food. Make a grocery list and stick to it. Cooking Try to cook your favorite foods in a healthier way. For example, try baking instead of frying. Use low-fat dairy products. Meal planning Use more fruits and vegetables. Half of your plate should be fruits and vegetables. Include lean proteins like poultry and fish. How do I count calories when eating out? Ask for smaller portion sizes. Consider sharing an entree and sides instead of getting your own entree. If you get your own entree, eat only half. Ask for a box at the beginning of your meal and put the rest of your entree in it so you are not tempted to eat it. If calories are listed on the menu, choose the lower calorie options. Choose dishes that include vegetables, fruits, whole grains, low-fat dairy products, and lean protein. Choose items that are boiled, broiled, grilled, or steamed. Stay away from items that are buttered,battered, fried, or served with cream sauce. Items labeled crispy are usually fried, unless stated otherwise. Choose water, low-fat milk, unsweetened iced tea, or other drinks without added sugar. If you want an alcoholic beverage, choose a lower calorie option such as a glass of wine or light beer. Ask for dressings, sauces, and syrups on the side. These are usually high in calories, so you should limit the amount you eat. If you want a salad, choose a garden salad and ask for grilled meats. Avoid extra toppings like horton, cheese, or fried items. Ask for the dressing on the side, or ask for olive oil and vinegar or lemon to use as dressing. Estimate how many servings of a food you are given. For example, a serving of cooked rice is cup orabout the size of half a baseball. Knowing serving sizes will help you be aware of how much food you are eating at restaurants. The list below tells you how big or small some common portion sizes arebased on everyday objects: ?1 oz 4 stacked dice. ?3 oz 1 deck of cards. ?1 tsp 1 . ?1 Tbsp a ping-pong ball. ?2 Tbsp 1 ping-pong ball. ? cup baseball. ?1 cup 1 baseball. Summary Calorie counting means keeping track of how many calories you eat and drink each day. If you eat fewer calories than your body needs, you should lose weight. A healthy amount of weight to lose per week is usually 1 2 lb (0.5 0.9 kg). This usually means reducing your daily calorie intake by 500 750 calories. The number of calories in a food can be found on a Nutrition Facts label. If a food does not have aNutrition Facts label, try to look up the calories online or ask your dietitian for help. Use your calories on foods and drinks that will fill you up, and not on foods and drinks that will leave you hungry. Use smaller plates, glasses, and bowls to prevent overeating. This information is not intended to replace advice given to you by your health care provider. Make sure you discuss any questions you have with your health care provider. Document Released: 08/09/2006 Document Revised: 04/28/2019 Document Reviewed: 07/09/2017 [employer] Patient Education 2020 [employer]. 03/09/2022 10:22:48 Benign Prostatic Hyperplasia Benign Prostatic Hyperplasia Benign prostatic hyperplasia (BPH) is an enlarged prostate gland that is caused by the normal agingprocess and not by cancer. The prostate is a walnut-sized gland that is involved in the production of semen. It is located in front of the rectum and below the bladder. The bladder stores urine and the urethra is the tube that carries the urine out of the body. The prostate may get bigger as a man gets older. An enlarged prostate can press on the urethra. This can make it harder to pass urine. The build-up of urine in the bladder can cause infection. Back pressure and infection may progress to bladder damage and kidney (renal) failure. What are the causes? This condition is part of a normal aging process. However, not all men develop problems from this condition. If the prostate enlarges away from the urethra, urine flow will not be blocked. If it enlarges toward the urethra and compresses it, there will be problems passing urine. What increases the risk? This condition is more likely to develop in men over the age of 50 years. What are the signs or symptoms? Symptoms of this condition include: Getting up often during the night to urinate. Needing to urinate frequently during the day. Difficulty starting urine flow. Decrease in size and strength of your urine stream. Leaking (dribbling) after urinating. Inability to pass urine. This needs immediate treatment. Inability to completely empty your bladder. Pain when you pass urine. This is more common if there is also an infection. Urinary tract infection (UTI). How is this diagnosed? This condition is diagnosed based on your medical history, a physical exam, and your symptoms. Tests will also be done, such as: A post-void bladder scan. This measures any amount of urine that may remain in your bladder after you finish urinating. A digital rectal exam. In a rectal exam, your health care provider checks your prostate by putting a lubricated, gloved finger into your rectum to feel the back of your prostate gland. This exam detects the size of your gland and any abnormal lumps or growths. An exam of your urine (urinalysis). A prostate specific antigen (PSA) screening. This is a blood test used to screen for prostate cancer. An ultrasound. This test uses sound waves to electronically produce a picture of your prostate gland. Your health care provider may refer you to a specialist in kidney and prostate diseases (urologist). How is this treated? Once symptoms begin, your health care provider will monitor your condition (active surveillance or watchful waiting). Treatment for this condition will depend on the severity of your condition. Treatment may include: Observation and yearly exams. This may be the only treatment needed if your condition and symptoms are mild. Medicines to relieve your symptoms, including: ?Medicines to shrink the prostate. ?Medicines to relax the muscle of the prostate. Surgery in severe cases. Surgery may include: ?Prostatectomy. In this procedure, the prostate tissue is removed completely through an open incision or with a laparoscope or robotics. ?Transurethral resection of the prostate (TURP). In this procedure, a tool is inserted through the opening at the tip of the penis (urethra). It is used to cut away tissue of the inner core of the prostate. The pieces are removed through the same opening of the penis. This removes the blockage. ?Transurethral incision (TUIP). In this procedure, small cuts are made in the prostate. This lessens the prostate's pressure on the urethra. ?Transurethral microwave thermotherapy (TUMT). This procedure uses microwaves to create heat. The heat destroys and removes a small amount of prostate tissue. ?Transurethral needle ablation (TUNA). This procedure uses radio frequencies to destroy and remove a small amount of prostate tissue. ?Interstitial laser coagulation (ILC). This procedure uses a laser to destroy and remove a small amount of prostate tissue. ?Transurethral electrovaporization (TUVP). This procedure uses electrodes to destroy and remove a small amount of prostate tissue. ?Prostatic urethral lift. This procedure inserts an implant to push the lobes of the prostate away from the urethra. Follow these instructions at home: Take vrqy-gct-xiuswaw and prescription medicines only as told by your health care provider. Monitor your symptoms for any changes. Contact your health care provider with any changes. Avoid drinking large amounts of liquid before going to bed or out in public. Avoid or reduce how much caffeine or alcohol you drink. Give yourself time when you urinate. Keep all follow-up visits as told by your health care provider. This is important. Contact a health care provider if: You have unexplained back pain. Your symptoms do not get better with treatment. You develop side effects from the medicine you are taking. Your urine becomes very dark or has a bad smell. Your lower abdomen becomes distended and you have trouble passing your urine. Get help right away if: You have a fever or chills. You suddenly cannot urinate. You feel lightheaded, or very dizzy, or you faint. There are large amounts of blood or clots in the urine. Your urinary problems become hard to manage. You develop moderate to severe low back or flank pain. The flank is the side of your body between the ribs and the hip. These symptoms may represent a serious problem that is an emergency. Do not wait to see if the symptoms will go away. Get medical help right away. Call your local emergency services (911 in the [place] Do not drive yourself to the hospital. Summary Benign prostatic hyperplasia (BPH) is an enlarged prostate that is caused by the normal aging process and not by cancer. An enlarged prostate can press on the urethra. This can make it hard to pass urine. This condition is part of a normal aging process and is more likely to develop in men over the age of 50 years. Get help right away if you suddenly cannot urinate. This information is not intended to replace advice given to you by your health care provider. Make sure you discuss any questions you have with your health care provider. Document Released: 08/09/2006 Document Revised: 07/04/2019 Document Reviewed: 09/13/2017 [employer] Patient Education 2020 [employer]. Follow Up Care 02/13/2022 14:37:55 With:ANA MARIA PADILLA, Bernardo Khan, URL Address: [facility] [address], [place] [address]- [phone] When:Within 1 Year(s) Comments:1 year fu with PSA [facility] 07-15-2022 Evaluation note* Encounter Date Diagnosis Assessment Notes Treatment Notes Treatment Clinical Notes Feb, Lumbar radiculopathy (ICD-10 - M54.16) 76 year old female here for follow up status post bilateral L4 transforaminal epidural steroid injection under fluoroscopic guidance. Patient reports 100% pain relief as well as improved walking, standing and daily functions following procedure. He voices complaints of low back pain today. He denies any true radicular symptoms. He notes intermittent cramping in the bilateral calves and bottoms of his feet. Overall his pain is mild and manageable. I recommend he increase his activities as tolerated. He is counseled against any excessive bending or twisting. He is advised to call the office if their pain returns. Feb, Lumbar degenerative disc disease (ICD-10 - M51.36) Continue with current treatment plan. Feb, Chronic pain (ICD-10 - G89.29) Call the office if pain persists or worsens. [facility] Other 07-09-2022 Evaluation note* Encounter Date Diagnosis Assessment Notes Treatment Notes Treatment Clinical Notes Feb, Viral upper respiratory infection (ICD-10 - J06.9) Viral upper respiratory infection: adult home care material was printed Drink plenty fluids, get plenty of rest. Take Tylenol or Motrin as needed for aches pains or fevers. Continue home medications as prescribed. Follow-up with your family physician if no improvement 2 to 3 days Feb, Contact with and (suspected) exposure to covid-19 (ICD-10 - Z20.822) [facility] Other 04-11-2022 Miscellaneous Notes* Telephone Encounter - Dora Khanna RN - 12/01/2021 1:53 PM EDT Please review and sign if agreeable. Dora Khanna RN [facility]* Encounter Date Diagnosis Assessment Notes Treatment Notes Treatment Clinical Notes Sep, Lumbar radiculopathy (ICD-10 - M54.16) 75 year old male here for follow up for chronic pain. He voices complaints of intermittent low back and bilateral lower extremity pain. He states most of the time his pain is most bothersome in the anterior aspect of the thighs to the knees. He also notes intermittent cramping to the calves. He feels pain can negatively impact his ADLs and sleeping pattern. I discussed different treatment options in detail with the patient. If his pain persists or worsens, we can consider repeating injections in the future. Overall, patient appears to be doing well at this time. I recommend he increase his activities as tolerated. He is counseled against any excessive bending or twisting. He is advised to call the office if his pain returns. Sep, Lumbar degenerative disc disease (ICD-10 - M51.36) Continue with current treatment plan. Sep, Chronic pain (ICD-10 - G89.29) Call the office if pain persists or worsens. [facility] Other 10-23-2021 Evaluation note* Encounter Date Diagnosis Assessment Notes Treatment Notes Treatment Clinical Notes May, Contact with and (suspected) exposure to other viral communicable diseases (ICD-10 - Z20.828) Advised patient that rapid covid antigen test in office was negative. Discussed dx with patient. Advised that viral syndromes last 7-10 days, antibiotics are not indicated for viruses. Will treat as viral at this time based on physical exam and duration of symptoms. May use OTC cold medications as directed, Tylenol/Motrin as directed for aches/fever. Supportive care as directed, push fluids and rest, throat lozenges, nasal saline spray as directed, cool mist humidification. Follow up with PCP if symptoms persist. Immediate eval for SOB, wheezing, difficulty breathing, chest pain, headache, neck pain/stiffness, light sensitivity, abdominal pain, N/V/D, rash, or other new or concerning symptoms. Patient verbalizes understanding and is agreeable to treatment plan May, Other Additional time spent conducting pre-visit phone call, screening for symptoms, instructions on social distancing, application and removal of PPE, and cleaning of examination room, equipment and supplies was preformed. Patient education given for testing methodology and results. Patient care instructions given in writting by [facility] document [facility] Other 10-01-2021 Evaluation note* Encounter Date Diagnosis Assessment Notes Treatment Notes Treatment Clinical Notes May, Contact with and (suspected) exposure to other viral communicable diseases (ICD-10 - Z20.828) May, Viral upper respiratory illness (ICD-10 - J06.9) May, Other Additional time spent conducting pre-visit phone call, screening for symptoms, instructions on social distancing, application and removal of PPE, and cleaning of examination room, equipment and supplies was preformed. Patient education given for testing methodology and results. Patient care instructions given in writting by [facility] document. [facility] Other Evaluation + Plan note Future Appointments Appointment Date:03/12/2023 08:15:00 AM Scheduled Provider:Bernardo PHAN MD Location:[facility] Appointment Type:URO Office Visit Diagnostic Tests Pending * PSA Total 03/09/22 [facility] evaluation noteNo InformationNort Design [employer] Other Evaluughnj noteNo assessment information available [facility] Work Phone: Evaluation note* Diagnosis History of prostate cancer- Primary Personal history of malignant neoplasm of prostate [facility] Diagnosis Melanoma in situ of forehead (CMS/HCC) documented in this encounter [facility] Work Phone: Evaluation note* Diagnosis Melanoma in situ of forehead (CMS/HCC) Encounter for change or removal of nonsurgical wound dressing documented in this encounter [facility] Work Phone: Evaluation note* Diagnosis History of prostate cancer- Primary Personal history of malignant neoplasm of prostate [facility] - Reported* Type Description Date Medical History diabetes Medical History Prostate cancer Surgical History donated a kidney Surgical History kidney stones, stent Surgical History Right knee meniscus Surgical History appendectomy Hospitalization History see above [facility] Other History general Narrative - Reported* Type Description Date Medical History diabetes Medical History Prostate cancer Medical History 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 Medical History MELANOMA RIGHT ZOROASTRIAN Medical History TYPE II DIABETES Medical History MELANOMA MID BACK Medical History MELANOMA ON BACK 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 Surgical History donated a kidney Surgical History kidney stones, stent Surgical History Right knee meniscus Surgical History appendectomy Surgical History MANY SKIN LESIONS Surgical History TONSILECTOMY AND ADNOIDS Hospitalization History see above Hospitalization History HITAL HERNIA [facility] Other History general Narrative - Reported* Type Description Date Medical History diabetes Medical History Prostate cancer Medical History 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 Medical History MELANOMA RIGHT ZOROASTRIAN Medical History TYPE II DIABETES Medical History MELANOMA MID BACK Medical History MELANOMA ON BACK 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 NUMBNESS Medical History HYPERLIPIDEMIA Medical History COVID 07/2023 Surgical History donated a kidney Surgical History kidney stones, stent Surgical History Right knee meniscus Surgical History appendectomy Surgical History MANY SKIN LESIONS Surgical History TONSILECTOMY AND ADNOIDS Hospitalization History see above Hospitalization History HITAL HERNIA [facility] Other Hospital course Narrative No data available for this section [facility] progress note No data available for this section [facility] reason for referral (narrative)* Consultation (Routine) - Authorized Specialty Diagnoses / Procedures Referred By La case Referred To Contact Dermatology Diagnoses Melanoma in situ of forehead (CMS/HCC) Procedures Follow Up In Dermatology - Nurse Visit Goyo Coleman MD PhD [address], [address] [address] Goyo Coleman MD PhD [address], [address] [address] Referral ID Status Reason Start Date Expiration Date V isits Requested Visits Authorized [id number] Authorized 11/03/2023 11/02/2024 1 1 [facility] Work Phone: Summary Purpose Family History No Family History Records FoundNo Family History Records FoundNo Family History Records FoundNo Family History Records FoundNo Family History Records FoundNo Family History Records Found Advance Directives No Advanced Directives Records Found Advance Directive Response Recorded Date/ Time Advance Directives No June 10:45am Advance Directive Response Recorded Date/ Time Advance Directives No June 9:45am Chief Complaint and Reason for Visit Chief Complaint Z90.5 N18.2 E11.9 Chief Complaint M54.16 flu vaccine Chief Complaint Chronic Kidney Disea se Additional Source Comments Source Comments (unrecognize d section and content) In the event this informatio n is protected by the Federal Confidentiality of Alcohol and Drug Abuse Patient Records regulations: The Federal rules restrict any use of the information to criminally investigate or prosecute any alcohol or drug abuse patient.[facility] Hospital[facility] the event this information is protected by the Federal Confidentiality of Alcohol and Drug Abuse Patient Records regulations: The Federal rules restrict any use of the information to criminally investigate or prosecute any alcohol or drug abuse patient.[facility] Hospital[facility] the event this information is protected by the Federal Confidentiality of Alcohol and Drug Abuse Patient Records regulations: The Federal rules restrict any use of the information to criminally investigate or prosecute any alcohol or drug abuse patient.[facility] Hospital[facility] the event this information is protected by the Federal Confidentiality of Alcohol and Drug Abuse Patient Records regulations: The Federal rules restrict any use of the information to criminally investigate or prosecute any alcohol or drug abuse patient.[facility] Hospital[facility] the event this information is protected by the Federal Confidentiality of Alcohol and Drug Abuse Patient Records regulations: The Federal rules restrict any use of the information to criminally investigate or prosecute any alcohol or drug abuse patient.[facility] Hospital[facility] the event this information is protected by the Federal Confidentiality of Alcohol and Drug Abuse Patient Records regulations: The Federal rules restrict any use of the information to criminally investigate or prosecute any alcohol or drug abuse patient.[facility] HospitalIn the event this information is protected by the Federal Confidentiality of Alcohol and Drug Abuse Patient Records regulations: The Federal rules restrict any use of the information to criminally investigate or prosecute any alcohol or drug abuse patient.[facility] HospitalIn the event this information is protected by the Federal Confidentiality of Alcohol and Drug Abuse Patient Records regulations: The Federal rules restrict any use of the information to criminally investigate or prosecute any alcohol or drug abuse patient.[facility] HospitalIn the event this information is protected by the Federal Confidentiality of Alcohol and Drug Abuse Patient Records regulations: The Federal rules restrict any use of the information to criminally investigate or prosecute any alcohol or drug abuse patient.[facility] HospitalIn the event this information is protected by the Federal Confidentiality of Alcohol and Drug Abuse Patient Records regulations: The Federal rules restrict any use of the information to criminally investigate or prosecute any alcohol or drug abuse patient.[facility] HospitalIn the event this information is protected by the Federal Confidentiality of Alcohol and Drug Abuse Patient Records regulations: The Federal rules restrict any use of the information to criminally investigate or prosecute any alcohol or drug abuse patient.[facility] Reason for Visit (unrecogniz ed section and content) Reason Onset Date Comments Refill Request 12/01/2021 Reason Comments Prostate Cancer Reason Comments MOHS Surgery Right Forehead, MIS Specialty Diagnoses / Procedures Referred By La case Referred To Contact Dermatology Diagnoses Neoplasm of uncertain behavior of skin Julian Hebert, [employer]Y [employer] 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 [address] [place] [address] Referral ID Status Reason Start Date Expiration Date Visits Requested Visits Authorized [id number] Authorized Specialty Services Required 10/12/2023 10/11/2024 1 1 Reason Comments Wound Check 9 days s/p mohs mariia noma right yarsani Specialty Diagnoses / Procedures Referred By La case Referred To Contact Dermatology Diagnoses Melanoma in situ of forehead ([facility]/HCC) Procedures Follow Up In Dermatology - Nurse Visit Goyo Coleman MD PhD [address], [facility] [address] [place] [address] Goyo Coleman MD PhD [address], [address] [place] [address] Referral ID Status Reason Start Date Expiration Date V isits Requested Visits Authorized [id number] Authorized 11/03/2023 11/02/2024 1 1 Care Teams (unrecognized sec tion and content) Blanket Binder Relationship Specialty Start Date End Date Natna Keyes [address] [facility] [place] [address] [place] [address] PCP - General Family Practice 04/17/20 Team Status: Active Member Role Status Dates Natan Keyes MD Primary Care Provider Active Team Status: Inactive Member Role Status Dates Natan Keyes MD Primary Care Provider Active Jillian Edwards MD Attending Provider Active Blanket Binder Relationship Specialty Start Date End Date Natan Keyes [address] [facility] [place] [address] [place] [address] PCP - General Family Medicine 04/17/20 Team Status: Inactive Member Role Status Dates Natan Keyes MD Primary Care Provider Active Chuck Hamm MD Attending Provider Active Team Status: Inactive Member Role Status Dates Natan Keyes MD Primary Care Provider Active Goyo Mondragon DO [facility] Attending Provider Active Team Status: Inactive Member Role Status Dates Natan Keyes MD Primary Care Provider Active S tart: September 15, 2023 End: September 15, 2023 Jillian Edwards MD Attending Provider Active Star t: September 15, 2023 End: September 15, 2023 Blanket Binder Relationship Specialty Start Date End Date Natan Keyes MD [address] [facility] [address] [place] [address] PCP - [facility] Reach 01/14/23 Natan Keyes MD [address] [facility] [address] [place] [address] PCP - General Family Medicine 02/25/23 Blanket Binder Relationship Specialty Start Date End Date Natan Keyes MD [address] [facility] [place] [address] [place] [address] PCP - General Family Medicine 04/17/20 (unrecognized sect ion and content) No Status Records FoundNo Status Records FoundNo Status Records FoundNo Status Records FoundNo Status Records FoundNo Status Records Found INFORMATION SOURCE (unrecogn ized section and content) DATE CREATED AUTHOR 03/16/2022 [facility] DATE CREATED AUTHOR AUTHOR'S CLAUDIA SILVA 10/01/[address] [facility] DATE CREATED AUTHOR AUTHOR'S ORGANIZ ATION 11/18/2023 [facility] DATE CREATED AUTHOR AUTHOR'S ORGANIZ ATION 12/30/2023 [facility] DATE CREATED AUTHOR AUTHOR'S ORGANIZ ATION 01/07/2024 [facility] DATE CREATED AUTHOR AUTHOR'S ORGANIZ ATION 01/07/2024 [facility] Goals (unrecognized section and content) Goals may be documented in a n alternate section FOR RECORDS PERTAINING TO PATIENTS WHO ARE OR HAVE BEEN ENROLLED IN A CHEMICAL DEPENDENCY/SUBSTANCEABUSE PROGRAM, SOME INFORMATION MAY BE OMITTED. This clinical summary was aggregated from multiple sources. Caution should be exercised in using it in the provision of clinical care. This summary normalizes information from multiple sources, and as a consequence, information in this document may materially change the coding, format and clinical context of patient data. In addition, data may be omitted in some cases. CLINICAL DECISIONS SHOULD BE BASED ON THE PRIMARY CLINICAL RECORDS. [employer] provides no warranty or guarantee of the accuracy or completeness of information in this document.
[2024-01-12 21:11] LABS: Basophils Percent Auto 0.6 % (0.2-2.0); Eosinophils Absolute Auto 0.3 10^3/uL (0.0-0.7); Eosinophils Percent Auto 3.9 % (0.9-7.0); Hematocrit 40.1 % (42.0-54.0); Hemoglobin 13.1 g/dL (14.0-18.0); Immature Granulocytes Abs Auto 0.05 10^3/uL (0.00-0.03); Immature Granulocytes Pct Auto 0.7 % (0.0-0.5); Lymphocytes Absolute Auto 1.3 10^3/uL (1.2-3.8); Lymphocytes Percent Auto 19.3 % (20.5-60.0); Mean Corpuscular HGB Conc 32.7 g/dL (29.9-35.2); Mean Platelet Volume 10.8 fL (9.5-13.5); Monocytes Absolute Auto 0.6 10^3/uL (0.3-0.8); Monocytes Percent Auto 9.1 % (1.7-12.0); Neutrophils Absolute Auto 4.4 10^3/uL (1.4-6.5); Neutrophils Percent Auto 66.4 % (43.0-75.0); Platelet Count 159 10^3/uL (150-450); Red Blood Count 4.36 10^6/uL (4.70-6.10); Red Cell Distribution Width 12.4 % (11.0-15.0); White Blood Count 6.7 10^3/uL (4.0-11.0)
[2024-01-12 21:25] LABS: Erythrocyte Sedimentation Rate 17 mm/hr (<=20)
[2024-01-12 21:35] LABS: Anion Gap 12.1; C Reactive Protein <0.50 mg/dL (<=0.50); Calcium 9.2 mg/dL (8.5-10.1); Carbon Dioxide 27.9 mmol/L (21.0-32.0); Chloride 103 mmol/L (98-107); Estimated GFR (African America 54 (>=60); Estimated GFR (Non-African Ame 44 (>=60); Glucose 180 mg/dL (74-106); Sodium 139 mmol/L (136-145); Uric Acid 7.5 mg/dL (3.5-7.2)
[2024-01-12] MEDS: NAPROXEN 250 MG TABLET 500 MG PO (21:55)
[2024-01-12] MEDS: TRAMADOL HCL 50 MG TABLET PO (21:55)
== END 2024-01-12 22:06 | disposition home or self-care (01) ==
PROVIDERS: Physician Assistant; Emergency Provider Emergency Medicine; PCP Family Medicine
DX: M79.644 Pain in right finger(s) (principal); E11.9 Type 2 diabetes mellitus without complications; Z79.899 Other long term (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 therapy; Z79.84 Long term (current) use of oral hypoglycemic drugs
CPT/HCPCS: 29130; 36415; 73130; 80048; 84550; 85025; 85652; 86140; 99284

== ENCOUNTER 2024-03-06 15:05 | Outpatient (OUT) | payer MEDICARE, OTHER, SELFPAY ==
[2024-03-06 16:42] LABS: Prostate Specific Antigen Dx 0.32 ng/mL (<=4.00)
== END 2024-03-06 15:06 | disposition home or self-care (01) ==
LOC: LAB 15:06
PROVIDERS: PCP Family Medicine; Visit Provider Urology
DX: Z85.46 Personal history of malignant neoplasm of prostate (principal)
CPT/HCPCS: 36415; 84153

== ENCOUNTER 2024-03-06 15:08 | Outpatient (OUT) | payer MEDICARE, OTHER, SELFPAY ==
[2024-03-06 16:28] LABS: Hematocrit 40.7 % (42.0-54.0); Hemoglobin 13.4 g/dL (14.0-18.0); Mean Corpuscular HGB Conc 32.9 g/dL (29.9-35.2); Mean Corpuscular Volume 91.1 fL (80.0-94.0); Mean Platelet Volume 11.1 fL (9.5-13.5); Platelet Count 180 10^3/uL (150-450); Red Blood Count 4.47 10^6/uL (4.70-6.10); Red Cell Distribution Width 12.7 % (11.0-15.0); White Blood Count 6.8 10^3/uL (4.0-11.0)
[2024-03-06 16:40] LABS: Alanine Aminotransferase 30 U/L (16-63); Albumin Globulin Ratio 1.1; Albumin Level 3.9 g/dL (3.4-5.0); Alkaline Phosphatase 61 U/L (46-116); Anion Gap 11.5; Aspartate Amino Transferase 20 U/L (15-37); BUN Creatinine Ratio 17.5; Bilirubin Total 0.4 mg/dL (0.2-1.0); Calcium 9.1 mg/dL (8.5-10.1); Carbon Dioxide 28.2 mmol/L (21.0-32.0); Chloride 104 mmol/L (98-107); Estimated GFR (African America >60 (>=60); Estimated GFR (Non-African Ame 55 (>=60); Globulin 3.7 g/dL; Glucose 145 mg/dL (74-106); Phosphorus 3.7 mg/dL (2.6-4.7); Potassium 3.7 mmol/L (3.5-5.1); Sodium 140 mmol/L (136-145); Total Protein 7.6 g/dL (6.4-8.2); Uric Acid 7.6 mg/dL (3.5-7.2)
[2024-03-06 17:02] LABS: Bilirubin Urine NEGATIVE (NEGATIVE); Blood Urine SMALL (NEGATIVE); Clarity Urine CLEAR (CLEAR); Color Urine LT. YELLOW (YELLOW); Glucose Urine UA NEGATIVE (NEGATIVE); Ketones Urine NEGATIVE (NEGATIVE); Leukocyte Esterase Urine NEGATIVE (NEGATIVE); Nitrite Urine NEGATIVE (NEGATIVE); Protein Urine NEGATIVE (NEG/TRACE); Specific Gravity Urine >=1.030 (1.005-1.025); Urobilinogen Urine 0.2 EU/dL (0.2-1.0)
[2024-03-06 17:37] LABS: Creatinine Urine Random 104.48 mg/dL (20.00-300.00); Protein Creatinine Ratio Urine 0.08; Total Protein Urine Random 8.7 mg/dL (<=11.9)
[2024-03-08 12:19] LABS: PTH, Intact 39 pg/mL (15-65)
== END 2024-03-06 15:09 | disposition home or self-care (01) ==
LOC: LAB 15:09
PROVIDERS: PCP Family Medicine; Visit Provider Internal Medicine Nephrology
DX: N28.1 Cyst of kidney, acquired (principal); Z85.46 Personal history of malignant neoplasm of prostate; I12.9 Hypertensive chronic kidney disease with stage 1 through stage 4 chronic kidney disease, or unspecified chronic kidney disease; N18.2 Chronic kidney disease, stage 2 (mild); Z90.5 Acquired absence of kidney; E11.9 Type 2 diabetes mellitus without complications; E83.39 Other disorders of phosphorus metabolism; Z87.39 Personal history of other diseases of the musculoskeletal system and connective tissue; N40.0 Benign prostatic hyperplasia without lower urinary tract symptoms
CPT/HCPCS: 36415; 80053; 81003; 82306; 82570; 83735; 83970; 84100; 84153; 84156; 84550; 85027

== ENCOUNTER 2024-04-18 13:20 | Outpatient (OUT) | payer MEDICARE, OTHER, SELFPAY ==
--- OUTSIDE RECORDS SUMMARY | 2024-04-18 13:42 | XMS_ITS | CCD ---
Author Organization [facility] Inform ion Partnership [facility] Care Team Providers Care Tip Inserter Name Role Phone Unavailable Primary Care Provider Unavailtheodore e Natan Keyes Primary Care Provider Chuck Hamm Unavailable Karine Torres Unavailable Jenn Thomas Unavailable NATAN KEYES Primary Care Physician AKKINA, MARY Admitting Unavailable AKKINAlexis, MARY Attending Unavailable STEPHY, DR GAMA Primary Care Unavailable STEPHY, DR GAMA Admitting Unavailable STEPHY, DR GAMA Attending Unavailable STEPHY, DR GAMA Primary Care Unavailable STEPHY, DR GAMA Consulting Unavailable STEPHY, DR GAMA Primary Care Unavailable JOAQUIN LUCIANO Admitting Unavailable JOAQUIN LUCIANO Attending Unavailable ROMEL, DR NATHAN Khan Consulting Unavailable DESTINI JORGENSEN Consulting Unavailable STEPHY, DR GAMA Primary Care Unavailable JOAQUIN LUCIANO Admitting Unavailable JOAQUIN LUCIANO Attending Unavailable PHIL GARCIA Consulting Unavailable AKKINA, MARY Admitting Unavailable AKKINA, MARY Attending Unavailable STEPHY, DR GAMA Primary Care Unavailable Jillian Edwards Unavailable MD Natan Keyes Primary Care Provider MD Jillian Edwards Attending Provider Natan Keyes Primary Care Provider MD Natan Keyes Primary Care Provider MD Chuck Hamm Attending Provider [phone] DO Goyo Mondragon Attending Provider [phone] MD Natan Keyes Primary Care Provider [phone] MD Jillian Edwards Attending Provider Natan Keyes MD Unavailable Natan Keyes MD Primary Care Provider [phone] Natan Keyes Primary Care Unavailable Bakhous, Aziz Admitting Unavailable Grace Aziz Attending Unavailable Natan Keyes Primary Care Unavailable Bakmoons, Aziz Admitting Unavailable Mihai Edwardsiz Attending Unavailable Natan Keyes Primary Care Unavailable Hansel, Chuck S Admitting Unavailable HanselDany gironif S Attending Unavailable Natan Keyes Primary Care Unavailable Kuns - [facility], Goyo P Admitting Unavailable Kuns - [facility], Goyo Duque Attending Unavailable Unavailable Primary Care Provider Unavailabl GOYO Le Attending Unavailable JULIAN HEBERT Referring Unavailable GOYO COLEMAN Attending Unavailable GOYO COLEMAN Referring Unavailable Natan Keyes MD Primary Care Provider NATAN KEYES Primary Care Unavailable Stanley LEAL Referring Unavailable Stanley LEAL Attending Unavailable Bernardo PHAN Attending Unavailable Bernardo PHAN Attending Unavailable Bernardo PHAN Attending Unavailable Sudheer Dyson Attending Unavailable JULIAN HEBERT Attending Unavailable WANDA MORENO Attending Unavailable NATAN KEYES Attending Unavailable WANDA MORENO Attending Unavailable Allergies Allergy Classification Reported Allergen(s) Allergy Type Date of Onset Reaction(s) Facility (13 sources) Grass Mix Pollens Allergen Ext Drug allergy Unknown [employer] Other (1 source) Other Allergy to substance 3 [facility] (1 source) Wound Dressing Adhesive Drug Allergy 2 Unknown [facility] (1 source) Grass pollen Drug allergy (disorder) 4 [facility] Repository (1 source) Grass; Translations: [Grass] Propensity to adverse reactions (disorder) [facility] Repository Medications Current Medications Medication Drug Class(es) [...] three times daily as needed HYDROcodone-aceta minophen ([place]) 5-325 MG tablet TAKE 1-2 TABLET BY MOUTH THREE TIMES DAILY NEEDED 0 Active acetaminophen 325 mg / oxyCODONE hydrochloride 5 mg oral tablet (1 source) Opioid Agonist Percocet 5-325 M G 1 tablet as needed Orally as needed Active [id number] 200 actuat albuterol 0.09 mg/actuat metered dose [...] Calcium Active cholecalciferol 0.025 mg oral tablet (5 sources) Vitamin D Start: 06-24-2020 take 1 tablet by mouth once daily calcium (as carbonate)-vitami n D 90 mg-25 mcg (1000 intl units) oral tablet tab(s), Oral, Daily, Refill(s) 0 Start Date: 06/24/20 Status: Ordered Start: 06-24-2020 take 1 tablet by abhishek th once daily calcium (as carbonate)-vitamin D 90 mg-25 mcg (1000 intl units) oral tablet tab(s), Oral, Daily, Refill(s) 0 Start Date: 06/24/20 Status: Ordered Cholecalciferol, Vitamin D3, 50 mcg (2,000 unit) cap Take by mouth. 0 Active Comment on above: Take by mouth. Continuous Blood Gluc Sensor (FreeStyle Mayito 2 Sensor) [facility] (1 source) Start: 08-03-20 Continuous Blood Gluc Sensor (FreeStyle Mayito 2 Sensor) [facility] Indications: Type 2 diabetes mellitus without complication, without long-term current use of insulin ([facility]) CHANGE EVERY 2 WEEKS DIRECTED 2 each 5 08/03/2023 Active diphenhydrAMINE (3 sources) Histamine-1 Receptor Antagonist diphenhydramine HCl (BENADRYL ALLERGY ORAL) Take by mouth. 0 Active Comment on above: Take by mouth. Loperamide (3 sources) Opioid Agonist loperamide HCl ( IMODIUM ORAL) Take by mouth as needed. 0 Active Comment on above: Take by mouth as nee ded. loteprednol etabonate 2 mg/ml ophthalmic suspension (1 source) Start: 03-15-20 24 take 1 drop(s) into the eye(s) twice daily Loteprednol Etabonate (Alrex) 0.2 % drops,suspension Active 1 DROPS OPHTHALMIC Twice daily March 15, 2024 12:00am metFORMIN hydrochloride 500 mg oral tablet (20 sources) Biguanide Start: 03-15-20 take 500 mg by mouth once Metformin Active 500 MG PO Once March 15, 2024 12:00am Start: 05-19-2021 take 1 tablet by abhishek th twice daily at mealtime metformin 500 mg oral tablet TAKE 1 TABLET BY MOUTH TWICE A DAY WITH A MEAL Start Date: 05/19/21 Status: Ordered take 1 tablet by abhishek th once daily at breakfast metFORMIN (GLUCOPHAGE) 500 mg tablet Take 500 mg by mouth daily with breakfast. 0 Active Comment on above: Take 500 mg by mouth daily with breakfast. olopatadine 2 mg/ml ophthalmic solution (5 sources) Histamine-1 Receptor Inhibitor Start: 03-12-2023 Pataday Once Daily Relief 0.2% ophthalmic solution Refill(s) 0 Start Date: 03/12/23 Status: Ordered Start: 02-27-2023 olopatadine (P ataday) 0.2 % ophthalmic solution Administer into affected eye(s) once every 24 hours. 0 02/27/2023 Active Start: 02-27-2023 take 1 drop(s) into the eye(s) once daily Pataday 0.2 % 1 drop into affected eye each eye Once a day for 7 days Feb, Active microencapsulated potassium chloride 20 meq extended release oral tablet (2 sources) Start: 03-15-2024 End: 03-15-2024 take 20 mEq by mouth once daily Potassium Chloride Active 20 MEQ PO Daily 90 March 15, 2024 9:28am potassium phosphate 155 mg / sodium phosphate, dibasic 852 mg / sodium phosphate, monobasic 130 mg oral tablet (8 sources) Start: 01-20-2023 take 1 tablet by mouth three times daily Phospha 250 Neutral tablet Take 1 tablet (250 mg) by mouth 3 times a day. 0 01/20/2023 Active SITagliptin 100 mg oral tablet (20 sources) Dipeptidyl Peptidase 4 Inhibitor Start: 03-09-2022 Januvia Oral, Daily, Refill(s) 0 Start Date: 03/09/22 Status: Ordered Start: 10-16-2021 take 1 tablet by abhishek th once daily Sitagliptin Phosphate (Januvia) 100 mg tablet Active 100 MG PO Daily January 24, 2024 12:00am Januvia Active Comment on above: TAKE 1 TABLET BY ABHISHEK EVERY DAY FOR 30 DAYS tamsulosin hydrochloride 0.4 mg oral capsule (4 sources) alpha-Adrenergic Camryn Start: 1 End: 2 take 1 capsule by mouth once daily at bedtime tamsulosin 0.4 mg Cap TAKE 1 CAPSULE BY MOUTH EVERYDAY AT BEDTIME Start Date: 05/19/21 Status: Ordered Comment on above: Take 1 capsule by mo [facility] daily at bedtime. tiZANidine 4 mg oral tablet (7 sources) Central alpha-2 Adrenergic Agonist Start: 1 tiZANidine 4 mg Tab TAKE 1/2 1 TABLET BY MOUTH TWICE A DAY NEEDED Start Date: 05/19/21 Status: Ordered Vitamin D3 (6 sources) Vitamin D3 Activ e Completed/Discontinued Medications Medication Drug Class(es) Dates Sig (Normalized) Sig (Original) amoxicillin 875 mg oral tablet (2 sources) Penicillin-class Antibacterial Start: 01-24-2024 End: 03-15-2024 take 875 mg by mouth every twelve hours Amoxicillin Discontinued 875 MG PO Every 12 hours 14 7 January 24, 2024 12:00am March 15, 2024 9:15am azithromycin 250 mg oral tablet (8 sources) [...] on above: Take one(1) tablet d aily. naproxen 500 mg oral tablet (2 sources) Nonsteroidal Anti-inflammatory Drug Start: 01-24-2024 End: 03-15-2024 take 500 mg by mouth once daily Naproxen Discontinued 500 MG PO Daily January 24, 2024 12:00am March 15, 2024 9:15am traMADol hydrochloride 50 mg oral tablet (2 sources) Opioid Agonist Start: 01-24-2024 End: 03-15-2024 take 50 mg by mouth once daily Tramadol Discontinued 50 MG PO Daily January 24, 2024 12:00am March 15, 2024 9:15am Problems Active Problems Problem Classification Problem Date Documented Date Episodic/Chronic Abdominal pain (3 sources) Flank pain; Translations: [Unspecified abdominal pain] Onset: 03-18-2023 02-16-2019 Episodic Calculus of urinary tract (4 sources) History of calculus of kidney; Translations: [Personal history of urinary calculi] Onset: 03-29-2019 02-16-2019 Episodic Cancer of prostate (4 sources) Malignant tumor of prostate; Translations: [Malignant neoplasm of prostate] Onset: 02-15-2023 06-24-2020 Chronic Cancer of prostate (6 sources) Personal history of malignant neoplasm of prostate; Translations: [History of malignant neoplasm of prostate] Onset: 03-09-2022 Episodic Chronic kidney disease (16 sources) Chronic kidney disease stage 2; Translations: [Chronic kidney disease, stage 2 (mild)] Onset: 01-27-2019 Chronic Chronic obstructive pulmonary disease and bronchiectasis (1 source) Bronchitis, not specified as acute or chronic Episodic Diabetes mellitus with complications (2 sources) Type 2 diabetes mellitus; Translations: [Type 2 diabetes mellitus with diabetic chronic kidney disease] Onset: 01-27-2019 02-15-2023 Chronic Diabetes mellitus without complication (19 sources) Diabetes mellitus; Translations: [Type 2 diabetes mellitus in nonobese] Onset: 02-02-2017 05-15-2019 Chronic Disorders of lipid metabolism (1 source) Hypertriglyceridemia; Translations: [Pure hyperglyceridemia] Onset: 02-15-2023 02-15-2023 Chronic Essential hypertension (1 source) Benign essential hypertension; Translations: [Essential (primary) hypertension] Onset: 07-05-2023 07-05-2023 Chronic Genitourinary symptoms and ill-defined conditions (15 sources) Dysuria; Translations: [Microscopic hematuria] Onset: 03-18-2023 03-01-2020 Episodic Gout and other crystal arthropathies (16 sources) Gouty arthritis of toe; Translations: [Gout, unspecified] Onset: 02-15-2023 02-15-2023 Chronic Hyperplasia of prostate (15 sources) Benign prostatic hypertrophy with outflow obstruction; Translations: [Benign prostatic hyperplasia with lower urinary tract symptoms] Onset: 03-09-2022 Chronic Hypertension with complications and secondary hypertension (7 sources) Hypertensive chronic kidney disease with stage [...] (1 source) Acute atopic conjunctivitis, bilateral Episodic Inflammatory conditions of male genital organs (3 sources) Prostatitis; Translations: [Inflammatory disease of prostate, unspecified] Onset: 03-18-2023 05-15-2019 Episodic Joint disorders and dislocations; trauma-related (3 sources) Derangement of right knee; Translations: [Unspecified internal derangement of right knee] Onset: 03-26-2021 02-15-2023 Chronic Malaise and fatigue (2 sources) Fatigue; Translations: [Chronic fatigue, unspecified] Onset: 10-22-2017 02-15-2023 Chronic Melanomas of skin (8 sources) Malignant melanoma of back; Translations: [Malignant melanoma of other part of trunk] Onset: 02-26-2017 02-15-2023 Chronic Nutritional deficiencies (10 sources) Vitamin D deficiency; Translations: [Vitamin D deficiency, unspecified] Onset: 09-15-2023 Chronic Occlusion or stenosis of precerebral arteries (2 sources) Bilateral stenosis of carotid arteries; Translations: [Occlusion and stenosis of bilateral carotid arteries] Onset: 02-15-2023 02-15-2023 Chronic Other aftercare (1 source) Other intermediate (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 therapy; Translations: [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 LOWERATOR 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 CURRENT DRUG THERAPY] Onset: 03-16-2022 Episodic Other [...] Episodic Other diseases of kidney and ureters (4 sources) Cyst of kidney, acquired; Translations: [Cystic kidney disease, unspecified] Onset: 09-15-2023 Episodic Other diseases of kidney and ureters (1 source) Cyst of kidney; Translations: [Cyst of kidney, acquired] 03-15-2024 Episodic Other nervous system disorders (13 sources) [...] [Lipoprotein deficiency] Onset: 01-25-2018 03-18-2023 Chronic Other screening for suspected conditions (not mental disorders or infectious disease) (5 sources) Raised prostate specific antigen; Translations: [Elevated prostate specific antigen [PSA]] Onset: 01-29-2020 02-16-2019 Episodic Other upper respiratory infections (5 sources) Acute upper respiratory infection, unspecified; Translations: [Acute pharyngitis, unspecified] Onset: 05-23-2021 Resolved: 02-28-2022 Episodic Otitis media and related conditions (4 sources) Otitis media of right ear; Translations: [Otitis media, unspecified, right ear] 01-24-2024 Episodic Residual codes; unclassified (2 sources) Left kidney absent 03-01-2020 Episodic Residual codes; unclassified (9 sources) Absent kidney; Translations: [Acquired absence of kidney] Onset: 02-15-2023 02-15-2023 Episodic Residual codes; unclassified (5 sources) Acquired absence of kidney; Translations: [Acquired absence of kidney] Onset: 09-15-2023 Episodic Screening and history of mental health and substance abuse codes (3 sources) Ex-smoker; Translations: [Personal history of nicotine [...] Classification Problem Date Documented Da te Episodic/Chronic Melanomas of skin (1 source) History of [...] Translations: [Dysphagia, unspecified] Onset: 02-15-2023 02-15-2023 Episodic Residual codes; unclassified (1 source) History of nephrectomy; Translations: [Acquired absence of kidney] Onset: 02-15-2023 02-15-2023 Episodic Spondylosis; intervertebral disc disorders; other back [...] Test Name Value Interpretation Reference Range Facility Ambulatory Visit Summaryon 0 03-10-2024 Ambulatory Visit Summary Ambulatory Visit Summary ROCIO PANG :1945 Visit Date:03/10/2024 Ambulatory Visit Instructions Your Diagnosis Personal history of prostate cancer BPH with urinary obstruction Your Care Team Attending Physician - ANA MARIA PADILLA, Bernardo Khan Primary Care Physician - NATAN KEYES MD This Is Your Medications List Contact prescribing physician if questions or concerns calcium-vitamin D (calcium (as carbonate)-vitamin D 90 mg-25 mcg (1000 intl units) oral tablet) metformin (metformin 500 mg oral tablet) olopatadine ophthalmic (Pataday Once Daily Relief 0.2% ophthalmic solution) sitagliptin (Januvia 100 mg Tab) tamsulosin (tamsulosin 0.4 mg Cap) Procedures Performed Radiation therapy care (12/21/2020), Transrectal biopsy of prostate (03/28/2020), Transrectal biopsy of prostate using ultrasound (US) guidance (04/16/2011), Removal of ureteral stent (07/28/2007), Laser ablation of prostate (07/12/2007), Nephrectomy (10/10/2001), Appendectomy, Tonsillectomy. Discharge Vitals Heart Rate (Peripheral) 71 Respiratory Rate 16 Blood Pressure 97/76 Height 172 cm Height 68 in Weight 93 kg Weight 204.6 lb BMI 31.44 What to do next Scheduled Follow-Up Appointments Wednesday 8:15 AM EDT With: ANA MARIA PADILLA, Bernardo Khan Where: [facility] Urology Office/Clinic Noteon 03-10-2024 Urology Office/Clinic Note Urology Office/Clinic Note Chief Complaint 1yr PSA HPI Staff 1 yr with PSA. Previous Dx: BPH with urinary obstruction, personal hx of prostate cancer. S/p EBRT 12/2020, TRUS/bx 03/28/20 *Tamsulosin 0.4 mg qhs PRN. PSA 03/06/24- 0.32 Every once in a while will get up 1-2x/night to void, will then take Tamsulosin for 1-2 days. Does not take on regular basis. Occasional double voids. Denies straining. Steady stream. Denies loss of bladder control. History of Present Illness Tests reviewed: reviewed UA and PSA. I have reviewed the previous health record information and history for this patient from Dr. Phan. I have reviewed and verified the staff HPI to be accurate for this encounter. There have been no associated fever, chills, flank pain, or blood in the urine. Denies any urinary infections since last encounter. Review of Systems PHQ Score Initial Depression Screen Score: 0 SCORE ROS - Provider Constitutional: denies weight loss, [...] HPI. Physical Exam Vitals & Measurements HR: 71(Peripheral) RR: 16 BP: 97/76 HT: 68 in HT: 172 cm WT: 93 kg WT: 204.6 lb BMI: 31.44 General Appearance: alert, no distress, well nourished, well developed male. Assessment/Plan 1. Personal history of prostate cancer (Z85.46: Personal history of malignant neoplasm of prostate) PSA 04/29/21 - 0.51 11/03/21 - 0.38 05/11/22 - 0.36 12/28/22 - 0.34 03/06/24 - 0.32 S/p TRUS/bx 03/28/20. Completed radiation treatments with Dr. Leal 12/2020. Pt was unable to get [employer] implant due to anatomy. PSA low and stable. Will cont to monitor. -PSA in 1 year 2. BPH with urinary obstruction (N40.1: Benign prostatic hyperplasia with lower urinary tract symptoms) UA today neg. Every once in a while will get up 1-2x/night to void, will then take Flomax for 1-2 days. Does not take on regular basis. Overall no urinary concerns. Follow-up With When Contact Information ANA MARIA PADILLA, Bernardo Khan, URL [address] [place], [place] [id number]- Additional Instructions: 1 year w/ PSA Patient Education Benign Prostatic Hyperplasia Barb Lomeli, personally scribed for Dr. Phan on 03/10/2024 11:22:36. . Documentation recorded by the scribe, Barb Sinclair, accurately reflects the services(s) I performed and decisions made by me. Authenticated by Dr. Phan on 03/10/2024 11:30:52. Problem List/Past Medical History Ongoing BPH with [...] prostate (07/12/2007), Nephrectomy (10/10/2001), Appendectomy, Tonsillectomy. Medications calcium (as carbonate)-vitamin D 90 mg-25 mcg (1000 intl units) oral tablet, Oral, Daily Januvia 100 mg Tab metformin 500 mg oral tablet Pataday Once Daily Relief 0.2% ophthalmic solution tamsulosin 0.4 mg Cap, Not taking Allergies Grass (Unknown) Social History Tobacco - Denies Tobacco Use, 05/19/2021 Never (less than 100 in lifetime) Tobacco Use:. Never Smokeless Tobacco Use:. Household tobacco concerns: No. Yes, 03/10/2024 Family History Myocardial infarct: Father. Pneumonia: Mother. Immunizations Vaccine Date Status Comments SARS-CoV-2 mRNA (tozinameran 5y-11y) vac - Not Given Postpone due to refusal Lab Results Ambulatory Point of Care Results Bilirubin Urine Dipstick: Negative (03/10/24 10:45:00) Blood Urine Dipstick: Trace-lysed (03/10/24 10:45:00) Glucose Urine Dipstick: Negative (03/10/24 10:45:00) Ketones Urine Dipstick: Negative (03/10/24 10:45:00) Leukocytes Urine Dipstick: Negative (03/10/24 10:45:00) Nitrite Urine Dipstick: Negative (03/10/24 10:45:00) Protein Urine Dipstick: Negative (03/10/24 10:45:00) Specific [place] Urine Dipstick: >=1.030 (03/10/24 10:45:00) Urine Appearance Urine Dipstick: Clear (03/10/24 10:45:00) Urine Color Urine Dipstick: Yellow (03/10/24 10:45:00) Urobilinogen Urine Dipstick: Normal 0.2-1 EU/dl (03/10/24 10:45:00) pH Urine Dipstick: 5.5 (03/10/24 10:45:00) Normal [facility] Comment on above: Result Comment: Elec tronically Signed By: Bernardo PHAN MD\.br\Date and Time Signed: 03/10/24 11:30 EDT\.br\Electronically Co-Signed By: Barb Sinclair.br\Date and Time Co-Signed: 03/10/24 11:23 EDT Erythrocyte distribution wid th Auto (RBC) [Ratio]on 03-06-2024 Erythrocyte distribution width (RBC) [Ratio] 12.7 % 11.0-15.0 [facility] Estimated glomerular filtrat ion rate (GFR) non- Americanon 03-06-2024 GFR/1.73 sq M.predicted among non-blacks MDRD (S/P/Bld) [Vol rate/Area] 55 mL/min/{1.73_m2} Low >=60 [facility] Globulin Calc (S) [Mass/Vol] on 03-06-2024 Globulin (S) [Mass/Vol] 3.7 g/dL F [facility] Hematocrit Auto (Bld) [Volum e fraction]on 03-06-2024 Hematocrit (Bld) [Volume fraction] 40.7 % Low 42.0-54.0 [facility] Hemoglobin [Mass/volume] in Bloodon 03-06-2024 Hemoglobin (Bld) [Mass/Vol] 13.4 g/dL Low 14.0-18.0 [facility] Laboratory - Chemistry and C hemistry - challengeon 03-06-2024 Albumin [Mass/Vol] 3.9 g/dL 3.4-5.0 [facility] ALP [Catalytic activity/Vol] 61 U/L 46-116 [facility] ALT [Catalytic activity/Vol] 30 U/L 16-63 [facility] AST [Catalytic activity/Vol] 20 U/L 15-37 [facility] Bilirubin [Mass/Vol] 0.4 mg/dL 0.2-1.0 [facility] Calcium [Mass/Vol] 9.1 mg/dL 8.5-10.1 [facility] Chloride [Moles/Vol] 104 mmol/L 98-107 [facility] CO2 [Moles/Vol] 28.2 mmol/L 21.0-32.0 [facility] Creatinine [Mass/Vol] 1.26 mg/dL 0.70-1.30 [facility] GFR/1.73 sq M.predicted MDRD (S/P/Bld) [Vol rate/Area] mL/min/{1.73_m2} >=60 [facility] Glucose [Mass/Vol] 145 mg/dL High 74-106 [facility] Magnesium [Mass/Vol] 2.0 mg/dL 1.8-2.4 [facility] Potassium [Moles/Vol] 3.7 mmol/L 3.5-5.1 [facility] Protein [Mass/Vol] 7.6 g/dL 6.4-8.2 [facility] Sodium [Moles/Vol] 140 mmol/L 136-145 [facility] Urate [Mass/Vol] 7.6 mg/dL High 3.5-7.2 [facility] Urea nitrogen [Mass/Vol] 22.0 mg/dL High 7.0-18.0 [facility] Urea nitrogen/Creatinine [Mass ratio] 17.5 mg/mg [facility] Bilirubin Ql (U) Negative NEGATIVE [facility] Glucose (U) [Mass/Vol] Negative NEGATIVE [facility] Ketones Ql (U) Negative NEGATIVE [facility] pH (U) 6.0 [pH] 5.0-9.0 [facility] Specific gravity (U) [Rel density] >=1.030 Abnormal 1.005-1.025 [facility] Urobilinogen Qn (U) 0.2 {Alba'U}/dL 0.2-1.0 [facility] Laboratory - Specimen inform ationon 03-06-2024 Appearance (U) CLEAR CLEAR [facility] Color (U) LT. YELLOW YELLOW [facility] Laboratory - Urinalysison Leukocyte esterase Test strip Ql (U) Negative NEGATIVE [facility] Nitrite Ql (U) Negative NEGATIVE [facility] Protein (U) [Mass/Vol] 8.7 mg/dL <=11.9 [facility] Protein Ql (U) Negative NEG/TRACE [facility] Leukocytes [#/volume] correc jennifer for nucleated erythrocytes in Blood by Automated counon 03-06-2024 WBC corrected for nucl RBC Auto (Bld) [#/Vol] 6.8 10 3/uL 4.0-11.0 [facility] MCH Auto (RBC) [Entitic mass ]on 03-06-2024 MCH (RBC) [Entitic mass] 30.0 pg 25.9-34.0 [facility] MCHC Auto (RBC) [Mass/Vol]on 03-06-2024 MCHC (RBC) [Mass/Vol] 32.9 g/dL 29.9-35.2 [facility] MCV Auto (RBC) [Entitic vol] on 03-06-2024 MCV (RBC) [Entitic vol] 91.1 fL 80.0-94.0 F [facility] No Panel Informationon 03-06 25-Hydroxy Vitamin D Total 36.9 ng/mL [facility] Comment on above: <20 ng/mL Vit D defi cient20-<30 ng/mL Vit D [id number] ng/mL Vit D sufficient>100 ng/mL Potential Toxicity Parathyroid Hormone (Intact) 39 pg/mL 15-65 [facility] Comment on above: Performed at: [facility] [employer] [address] [id number] Director: Jose Ramon Arreola PhD, Phone: [phone] Phosphorus Level 3.7 mg/dL 2.6-4.7 [facility] Urine Occult Blood SMALL Abnormal NEGATIVE [facility] Urine Random Creatinine 104.48 mg/dL 20.0 0-300.0 0 [facility] Platelet mean volume Auto (B ld) [Entitic vol]on 03-06-2024 Platelet mean volume (Bld) [Entitic vol] 11.1 fL 9.5-13.5 [facility] Platelets Auto (Bld) [#/Vol] on 03-06-2024 Platelets (Bld) [#/Vol] 180 10 3/uL 150-450 [facility] RBC Auto (Bld) [#/Vol]on RBC (Bld) [#/Vol] 4.47 10 6/uL Low 4.70-6.10 [facility] Serum or plasma albumin/glob ulin mass ratioon 03-06-2024 Albumin/Globulin [Mass ratio] 1.1 {ratio} [facility] Serum or plasma anion gap de terminationon 03-06-2024 Anion gap [Moles/Vol] 11.5 mmol/L [facility] Urine protein/creatinine rat ioon 03-06-2024 Protein/Creatinine (U) [Ratio] 0.08 [facility] CNOVon 12-29-2023 CNOV Office Visit (RADTSA ) ROCIO PANG ([id number]) 1945 M Date Time Provider Department 12/29/23 [...] DIAGNOSIS: Prostate adenocarcinoma, initial PSA 8.5, biopsy [place] score 3 + 4 = 7 (grade [...] as needed. REVIEW OF SYSTEMS: D/N = 4-5 Hematuria: none Dysuria: none Incontinence: none Urgency: [...] in the EMR. Referring Provider: Stanley LEAL [[id number]] Allergies As of Date: 12/29/2023 (No Known Allergies) Date Reviewed: 12/29/2023 Reviewed by: Dora Khanna RN - Fully Assessed Reason for Visit: Prostate Cancer [590] Primary Visit Diagnosis:History of prostate cancer [Z85.46] Order(s):PSA (OUTSIDE) [1772920] Order #: [id number] PROSTATE-SPECIFIC ANTIGEN DIAGNOSTIC [SQPSA] Order #: [id number] FUTURE Prescriptions as of 01/05/2024 - metFORMIN [...] for Encounter Date Provider Department Center 12/29/2023 [id number] LEALMAICOL GISSEL CYNDI Encounter Status:Closed by Stanley LEAL on 01/05/24 Normal [facility] PSA (OUTSIDE)on 12-24-2023 [facility] Provider Letteron 12-08-2023 Provider Letter December 08, 2023 ROCIO PANG [address] [place] [address] : 1945 Dear Rocio, /We have been [...] [facility] [address], [place] [address] Normal [facility] CNCOon 11-22-2023 CNCO Letter Text Normal [facility] Mohs surgeryon 11-03-2023 Consent obtained: written [place] Protocol: Procedure explained and questions answered to [...] sodium bicarbonate Procedure Details: Biopsy accession number: [id number] Date of biopsy: 09/27/2023 Frozen section biopsy [...] hematoxylin and eosin and also immunostained with [place]-1. A 3 mm biopsy of adjacent tissue was taken and used to establish a baseline with hematoxylin and eosin and [place]-1 immunostains. The debulk showed melanoma in situ. The specimen was processed using immunostains with [place]-1. Tumor features identified on Mohs section: no [...] considerations per the NCCN guidelines Discussion/Procedural Comments: [facility] Work Phone: [facility] Work Phone: Surgical pathology studyon 0 10-07-2023 Surgical pathology study Pathology report.total SEE COMMENT Dermatopathology Report Case: [id number] Authorizing Provider: Goyo Coleman MD PhD Collected: 10/07/2023 1213 Ordering Location: [facility] Received: 10/07/2023 1213 [facility] Pathologist: Daphney Ho MD Specimen: OUTSIDE BLOCK(S)/SLIDE(S), 3 SLIDES, [facility] #[id number] (BX: 09/27/2023) Path report.final diagnosis SEE COMMENT 3 SLIDES, [facility] #[id number] (BX: 09/27/2023) SKIN, RIGHT FOREHEAD, SHAVE BIOPSY: [...] SKIN. MELANOMA IN SITU. 4.0X2.2CM PREV PATH# [id number], [id number] IRREGULAR PIGMENTED PAPULE. Path report.gross observation SEE COMMENT A. OUTSIDE BLOCK(S)/SLIDE(S). Received for consultation from [facility] are three slides labeled [id number] (BX: 09/27/2023) along with the corresponding pathology report. [facility] Comment on above: Order Comment: Mater ials Received: 3 SLIDES, [facility] #[id number] (BX: 09/27/2023) Alanine aminotransferase [En zymatic activity/volume] in Serum or PlasmaOrdered By: Jillian Edwards on 09-15-2023 ALT [Catalytic activity/Vol] 19 U/L 7-52 [facility] Albumin [Mass/volume] in Ser um or Plasma by Bromocresol green (BCG) dye binding methoOrdered By: Jillian Edwards on 09-15-2023 Albumin BCG dye [Mass/Vol] 4.3 g/dL 3.5-5.7 [facility] Alkaline phosphatase [Enzyma tic activity/volume] in Serum or PlasmaOrdered By: Jillian Edwards on 09-15-2023 ALP [Catalytic activity/Vol] 48 U/L 34-104 [facility] Aspartate aminotransferase [ Enzymatic activity/volume] in Serum or PlasmaOrdered By: Jillian Edwards on 09-15-2023 AST [Catalytic activity/Vol] 19 U/L 13-39 [facility] Bilirubin.total [Mass/volume ] in Serum or PlasmaOrdered By: Jillian Edwards on 09-15-2023 Bilirubin [Mass/Vol] 0.4 mg/dL 0.3-1.0 [facility] Calcium [Mass/volume] in Ser um or PlasmaOrdered By: Jillian Edwards on 09-15-2023 Calcium [Mass/Vol] 9.1 mg/dL 8.6-10.3 [facility] Carbon dioxide, total [Moles /volume] in Serum or PlasmaOrdered By: Jillian Edwards on 09-15-2023 CO2 [Moles/Vol] 31.4 mmol/L 21.0-31.0 [facility] Chloride [Moles/volume] in S elias or PlasmaOrdered By: Jillian Edwards on 09-15-2023 Chloride [Moles/Vol] 106 mmol/L 98-107 [facility] Comprehensive Metabolic Pane danya 09-15-2023 Albumin [Mass/Vol] 4.3 g/dL Normal 3.5-5.7 [facility] Comment on above: Order Comment: PATIXavier NT STATES HE ONLY NEEDS THE CMP DONE. Reason for Exam Arteriolonephrosclerosis;Chronic kidney disease, stage II (m Performed By: #### C MP #### [facility] [address] [place] [address] Albumin/Globulin [Mass ratio] 1.5 {ratio} Normal [facility] Comment on above: Order Comment: BRANDI NT STATES HE ONLY NEEDS THE CMP DONE. Reason for Exam Arteriolonephrosclerosis;Chronic kidney disease, stage II (m Performed By: #### C MP #### [address] ALP [Catalytic activity/Vol] 48 U/L Normal 34-104 [facility] Comment on above: Order Comment: PATIXavier NT STATES HE ONLY NEEDS THE CMP DONE. Reason for Exam Arteriolonephrosclerosis;Chronic kidney disease, stage II (m Result Comment: PERF ORMED BY: [place] [address] PATHOLOGIST [employer] GENE RAGLAND M.D. Performed By: #### C MP #### [facility] [place] [id number] [facility] ALT [Catalytic activity/Vol] 19 U/L Normal 7-52 [facility] Comment on above: Order Comment: BRANDI RUBIN STATES HE ONLY NEEDS THE CMP DONE. Reason for Exam Arteriolonephrosclerosis;Chronic kidney disease, stage II (m Performed By: #### C MP #### [place] [id number] [facility] Anion gap [Moles/Vol] 9.0 mmol/L Normal 6.0-15.0 [facility] Comment on above: Order Comment: BRANDI NT STATES HE ONLY NEEDS THE CMP DONE. Reason for Exam Arteriolonephrosclerosis;Chronic kidney disease, stage II (m Performed By: #### C MP #### [address] AST [Catalytic activity/Vol] 19 U/L Normal 13-39 [facility] Comment on above: Order Comment: BRANDI NT STATES HE ONLY NEEDS THE CMP DONE. Reason for Exam Arteriolonephrosclerosis;Chronic kidney disease, stage II (m Performed By: #### C MP #### [place] [id number] [place] Bilirubin [Mass/Vol] 0.4 mg/dL Normal 0.3-1.0 [facility] Comment on above: Order Comment: BRANDI RUBIN STATES HE ONLY NEEDS THE CMP DONE. Reason for Exam Arteriolonephrosclerosis;Chronic kidney disease, stage II (m Performed By: #### C MP #### [place] [address] [place] Calcium [Mass/Vol] 9.1 mg/dL Normal 8.6-10.3 [facility] Comment on above: Order Comment: BRANDI NT STATES HE ONLY NEEDS THE CMP DONE. Reason for Exam Arteriolonephrosclerosis;Chronic kidney disease, stage II (m Performed By: #### C MP #### [place] [id number] [place] Chloride [Moles/Vol] 106 mmol/L Normal 98-107 [facility] Comment on above: Order Comment: BRANDI NT STATES HE ONLY NEEDS THE CMP DONE. Reason for Exam Arteriolonephrosclerosis;Chronic kidney disease, stage II (m Performed By: #### C MP #### [facility] [address] [place] [address] [place] CO2 [Moles/Vol] 31.4 mmol/L High 21.0-31.0 [facility] Comment on above: Order Comment: BRANDI RUBIN STATES HE ONLY NEEDS THE CMP DONE. Reason for Exam Arteriolonephrosclerosis;Chronic kidney disease, stage II (m Performed By: #### C MP #### [facility] [address] [place] [id number] [facility] Creatinine [Mass/Vol] 1.04 mg/dL Normal 0.70-1.30 [facility] Comment on above: Order Comment: BRANDI NT STATES HE ONLY NEEDS THE CMP DONE. Reason for Exam Arteriolonephrosclerosis;Chronic kidney disease, stage II (m Performed By: #### C MP #### [facility] [address] [place] [id number] [place] GFR/1.73 sq M.predicted MDRD (S/P/Bld) [Vol rate/Area] mL/min/{1.73_m2} Normal [facility] Comment on above: Order Comment: BRANDI RUBIN STATES HE ONLY NEEDS THE CMP DONE. Reason for Exam Arteriolonephrosclerosis;Chronic kidney disease, stage II (m Performed By: #### C MP #### [facility] [address] [place] [address] [place] Globulin (S) [Mass/Vol] 2.8 g/dL Normal [facility] Comment on above: Order Comment: BRANDI RUBIN STATES HE ONLY NEEDS THE CMP DONE. Reason for Exam Arteriolonephrosclerosis;Chronic kidney disease, stage II (m Performed By: #### C MP #### [facility] [address] [place] [id number] [place] Glucose [Mass/Vol] 140 mg/dL High 70-100 [facility] Comment on above: Order Comment: BRANDI RUBIN STATES HE ONLY NEEDS THE CMP DONE. Reason for Exam Arteriolonephrosclerosis;Chronic kidney disease, stage II (m Result Comment: [facility] Glucose Reference Range is dependent on time and content of last meal. Glucose of more than 200 mg/dL in a nonstressed, ambulatory subject supports the diagnosis of Diabetes Mellitus. ADA recommended reference range Performed By: #### C MP #### [facility] [address] [place] [address] [place] Potassium [Moles/Vol] 4.4 mmol/L Normal 3.5-5.1 [facility] Comment on above: Order Comment: BRANDI NT STATES HE ONLY NEEDS THE CMP DONE. Reason for Exam Arteriolonephrosclerosis;Chronic kidney disease, stage II (m Performed By: #### C MP #### [facility] [address] [place] [address] [place] Protein [Mass/Vol] 7.1 g/dL Normal 6.4-8.9 [facility] Comment on above: Order Comment: BRANDI NT STATES HE ONLY NEEDS THE CMP DONE. Reason for Exam Arteriolonephrosclerosis;Chronic kidney disease, stage II (m Performed By: #### C MP #### [facility] [address] [place] [address] [place] Sodium [Moles/Vol] 142 mmol/L Normal 136-145 [facility] Comment on above: Order Comment: BRANDI NT STATES HE ONLY NEEDS THE CMP DONE. Reason for Exam Arteriolonephrosclerosis;Chronic kidney disease, stage II (m Performed By: #### C MP #### [facility] [address] [place] [id number] [place] Urea nitrogen [Mass/Vol] 17 mg/dL Normal 7-25 [facility] Comment on above: Order Comment: BRANDI NT STATES HE ONLY NEEDS THE CMP DONE. Reason for Exam Arteriolonephrosclerosis;Chronic kidney disease, stage II (m Performed By: #### C MP #### [facility] [address] [place] [id number] [place] Creatinine [Mass/volume] in Serum or PlasmaOrdered By: Jillian Edwards on 09-15-2023 Creatinine [Mass/Vol] 1.04 mg/dL 0.70-1.30 [facility] Globulin Calc (S) [Mass/Vol] Ordered By: Jillian Edwards on 01-24-2024 Globulin (S) [Mass/Vol] 2.8 g/dL [facility] Glucose [Mass/volume] in Ser um or PlasmaOrdered By: Jillian Edwards on 09-15-2023 Glucose [Mass/Vol] 140 mg/dL 70-100 [facility] Comment on above: ADA recommended refe rence rangeRandom Glucose Reference Range is dependent on time and content of last meal. Glucose of more than 200 mg/dL in a nonstressed, ambulatory subject supports the diagnosis of Diabetes Mellitus. No Panel InformationOrdered By: Jillian Edwards on 09-15-2023 Estimated GFR (CKD-EPI) > 60.0 mL/Min [facility] Creatinine Clearance (Chem N/A [facility] Potassium [Moles/volume] in Serum or PlasmaOrdered By: Jillian Edwards on 09-15-2023 Potassium [Moles/Vol] 4.4 mmol/L 3.5-5.1 [facility] Protein [Mass/volume] in Ser um or PlasmaOrdered By: Jillian Edwards on 09-15-2023 Protein [Mass/Vol] 7.1 g/dL 6.4-8.9 [facility] Serum or plasma albumin/glob ulin mass ratioOrdered By: Jillian Edwards on 09-15-2023 Albumin/Globulin [Mass ratio] 1.5 {ratio} [facility] Serum or plasma anion gap de terminationOrdered By: Jillian Edwards on 09-15-2023 Anion gap [Moles/Vol] 9.0 mmol/L 6.0-15.0 [facility] Sodium [Moles/volume] in Ser um or PlasmaOrdered By: Jillian Edwards on 09-15-2023 Sodium [Moles/Vol] 142 mmol/L 136-145 [facility] Urea nitrogen [Mass/volume] in Serum or PlasmaOrdered By: Jillian Edwards on 09-15-2023 Urea nitrogen [Mass/Vol] 17 mg/dL 7-25 [facility] MR lumbar spine wo conon MR lumbar spine wo con [facility] Main [place] [id number] MRI Report Signed Patient: Rocio Pang MR#: [id number] : 1945 Acct:[id number] Age/Sex: 77 / M ADM Date: 04/07/23 Loc: [facility] Room: Type: [facility] Attending Dr: Chuck Hamm MD Copies to: [...] Esequiel Coto M.D.04/07/2023 10:22 AM Dictation Location: [place] [address] Transcribed By: [facility] 04/07/23 1022 Dictated By: Esequiel Coto II, MD 04/07/23 1016 Signed By: 04/07/23 1022 Normal [facility] XR lumbar spine AP/LAT/FLX/E XTon 04-07-2023 XR lumbar spine AP/LAT/FLX/EXT [facility] [place] [address] [place] [address] XRay Report Signed Patient: Rocio Pang MR#: [id number] : 1945 Acct:[id number] Age/Sex: 77 / M ADM Date: 04/07/23 Loc: [facility] Room: Type: [facility] Attending Dr: Chuck Hamm MD Copies to: [...] Seun Mittal M.D.04/07/2023 11:58 AM Dictation Location: [place] [address] Transcribed By: [facility] 04/07/23 1158 Dictated By: Seun Mittal DO 04/07/23 1142 Signed By: 04/07/23 1158 [facility] Patient Educationon 03-12-20 Patient Education Urology Benign [...] Follow these instructions at home: ? Take [id number] and prescription medicines only as told by [...] the medicine (more content not included)... Normal [facility] Urology Office/Clinic Noteon 03-12-2023 Urology Office/Clinic Note [...] in 12/2020. Pt was unable to get [employer] implant due to anatomy. PSA 04/29/21 [...] With When Contact Information ANA MARIA PADILLA, Bernardo Khan, URL In 1 year [facility] [address] [place] [address]- Additional Instructions: w/ PSA Patient Education Benign [...] History My (more content not included)... Normal [facility] Comment on above: Result Comment: Elec tronically Signed By: Bernardo PHAN MD\.br\Date and Time Signed: 03/12/23 09:09 EDT\.br\Electronically Co-Signed By: mEely Maynard.br\Date and Time Co-Signed: 03/12/23 09:08 EDT Alanine aminotransferase [En zymatic activity/volume] in Serum or PlasmaOrdered By: Jillian Edwards on 12-25-2022 ALT [Catalytic activity/Vol] 22 U/L 7-52 [facility] Albumin [Mass/volume] in Ser um or Plasma by Bromocresol green (BCG) dye binding methoOrdered By: Jillian Edwards on 12-25-2022 Albumin BCG dye [Mass/Vol] 4.3 g/dL 3.5-5.7 [facility] Alkaline phosphatase [Enzyma tic activity/volume] in Serum or PlasmaOrdered By: Jillian Edwards on 12-25-2022 ALP [Catalytic activity/Vol] 44 U/L 34-104 [facility] Aspartate aminotransferase [ Enzymatic activity/volume] in Serum or PlasmaOrdered By: Jillian Edwards on 12-25-2022 AST [Catalytic activity/Vol] 20 U/L 13-39 [facility] Bilirubin Test strip Ql (U)O rdered By: Jillian Edwards on 12-25-2022 Bilirubin Ql (U) Negative Negative [facility] Bilirubin.total [Mass/volume ] in Serum or PlasmaOrdered By: Jillian Edawrds on 12-25-2022 Bilirubin [Mass/Vol] 0.7 mg/dL 0.3-1.0 [facility] Calcium [Mass/volume] in Ser um or PlasmaOrdered By: Jillian Edwards on 12-25-2022 Calcium [Mass/Vol] 8.7 mg/dL 8.6-10.3 [facility] Carbon dioxide, total [Moles /volume] in Serum or PlasmaOrdered By: Jillian Edwards on 12-25-2022 CO2 [Moles/Vol] 27.0 mmol/L 21.0-31.0 [facility] Chloride [Moles/volume] in S elias or PlasmaOrdered By: Jillian Edwards on 12-25-2022 Chloride [Moles/Vol] 104 mmol/L 98-107 [facility] Color Auto (U)Ordered By: Mihai Edwards on 12-25-2022 Color (U) Yellow Yellow [facility] Comprehensive Metabolic Pane danya 12-25-2022 Albumin [Mass/Vol] 4.3 g/dL Normal 3.5-5.7 [facility] Comment on above: Order Comment: Reaso n for Exam Single kidney;Chronic kidney disease, stage II (mild);Diabet Performed By: #### U AMBER, CMP, PHOS, [id number] #### [facility] [address] [place] [address] Albumin/Globulin [Mass ratio] 1.7 {ratio} Normal [facility] Comment on above: Order Comment: Reaso n for Exam Single kidney;Chronic kidney disease, stage II (mild);Diabet Performed By: #### U AMBER, CMP, PHOS, [id number] #### [facility] [address] [place] [address] ALP [Catalytic activity/Vol] 44 U/L Normal 34-104 [facility] Comment on above: Order Comment: Reaso n for Exam Single kidney;Chronic kidney disease, stage II (mild);Diabet Performed By: #### U AMBER, CMP, PHOS, [id number] #### [facility] [address] [place] [address] ALT [Catalytic activity/Vol] 22 U/L Normal 7-52 [facility] Comment on above: Order Comment: Reaso n for Exam Single kidney;Chronic kidney disease, stage II (mild);Diabet Performed By: #### U AMBER, CMP, PHOS, [id number] #### [facility] [address] [place] [address] Anion gap [Moles/Vol] 11.1 mmol/L Normal 6.0-15.0 [facility] Comment on above: Order Comment: Reaso n for Exam Single kidney;Chronic kidney disease, stage II (mild);Diabet Performed By: #### U AMBER, CMP, PHOS, [id number] #### [facility] [address] [place] [address] [place] AST [Catalytic activity/Vol] 20 U/L Normal 13-39 [facility] Comment on above: Order Comment: Reaso n for Exam Single kidney;Chronic kidney disease, stage II (mild);Diabet Performed By: #### U AMBER, CMP, PHOS, [id number] #### [facility] [address] [place] [address] [place] Bilirubin [Mass/Vol] 0.7 mg/dL Normal 0.3-1.0 [facility] Comment on above: Order Comment: Reaso n for Exam Single kidney;Chronic kidney disease, stage II (mild);Diabet Performed By: #### U AMBER, CMP, PHOS, [id number] #### [facility] [address] Calcium [Mass/Vol] 8.7 mg/dL Normal 8.6-10.3 [facility] Comment on above: Order Comment: Reaso n for Exam Single kidney;Chronic kidney disease, stage II (mild);Diabet Performed By: #### U AMBER, CMP, PHOS, [id number] #### [place] [address] [place] Chloride [Moles/Vol] 104 mmol/L Normal 98-107 [facility] Comment on above: Order Comment: Reaso n for Exam Single kidney;Chronic kidney disease, stage II (mild);Diabet Performed By: #### U AMEBR, CMP, PHOS, [id number] #### [facility] [address] [place] [address] [place] CO2 [Moles/Vol] 27.0 mmol/L Normal 21.0-31.0 [facility] Comment on above: Order Comment: Reaso n for Exam Single kidney;Chronic kidney disease, stage II (mild);Diabet Performed By: #### U AMBER, CMP, PHOS, [id number] #### [facility] [address] [place] [address] [place] Creatinine [Mass/Vol] 1.25 mg/dL Normal 0.70-1.30 [facility] Comment on above: Order Comment: Reaso n for Exam Single kidney;Chronic kidney disease, stage II (mild);Diabet Performed By: #### U AMBER, CMP, PHOS, [id number] #### [facility] [address] [place], [place] [id number] [place] GFR/1.73 sq M.predicted MDRD (S/P/Bld) [Vol rate/Area] 59.308 mL/min/{1.73_m2} Normal [facility] Comment on above: Order Comment: Reaso n for Exam Single kidney;Chronic kidney disease, stage II (mild);Diabet Performed By: #### U AMBER, CMP, PHOS, [id number] #### [facility] [address] Globulin (S) [Mass/Vol] 2.5 g/dL Normal [facility] Comment on above: Order Comment: Reaso n for Exam Single kidney;Chronic kidney disease, stage II (mild);Diabet Performed By: #### U AMBER, CMP, PHOS, [id number] #### [address] Glucose [Mass/Vol] 141 mg/dL High 70-100 [facility] Comment on above: Order Comment: Reaso n for Exam Single kidney;Chronic kidney disease, stage II (mild);Diabet Result Comment: [facility] Glucose Reference Range is dependent on time and content of last meal. Glucose of more than 200 mg/dL in a nonstressed, ambulatory subject supports the diagnosis of Diabetes Mellitus. ADA recommended reference range Performed By: #### U AMBER, CMP, PHOS, [id number] #### [address] Potassium [Moles/Vol] 4.1 mmol/L Normal 3.5-5.1 [facility] Comment on above: Order Comment: Reaso n for Exam Single kidney;Chronic kidney disease, stage II (mild);Diabet Performed By: #### U AMBER, CMP, PHOS, [id number] #### [facility] [address] [place] [address] Protein [Mass/Vol] 6.8 g/dL Normal 6.4-8.9 [facility] Comment on above: Order Comment: Reaso n for Exam Single kidney;Chronic kidney disease, stage II (mild);Diabet Performed By: #### U AMBER, CMP, PHOS, [id number] #### [address] Sodium [Moles/Vol] 138 mmol/L Normal 136-145 [facility] Comment on above: Order Comment: Reaso n for Exam Single kidney;Chronic kidney disease, stage II (mild);Diabet Performed By: #### U AMBER, CMP, PHOS, [id number] #### [facility] [address] [place] [address] [place] Urea nitrogen [Mass/Vol] 18 mg/dL Normal 7-25 [facility] Comment on above: Order Comment: Reaso n for Exam Single kidney;Chronic kidney disease, stage II (mild);Diabet Performed By: #### U AMBER, CMP, PHOS, [id number] #### [facility] [address] [place] [address] [place] Creatinine [Mass/volume] in Serum or PlasmaOrdered By: Jillian Edwards on 12-25-2022 Creatinine [Mass/Vol] 1.25 mg/dL 0.70-1.30 [facility] Creatinine [Mass/volume] in UrineOrdered By: Jillian Edwards on 12-25-2022 Creatinine (U) [Mass/Vol] 143.0 mg/dL 14.0-26.0 [facility] Erythrocyte distribution wid th Auto (RBC) [Ratio]Ordered By: Jillian Edwards on 12-25-2022 Erythrocyte distribution width (RBC) [Ratio] 13.5 % 12.0-14.8 [facility] Globulin Calc (S) [Mass/Vol] Ordered By: Jillian Edwards on 12-25-2022 Globulin (S) [Mass/Vol] 2.5 g/dL [facility] Glucose [Mass/volume] in Ser um or PlasmaOrdered By: Jillian Edwards on 12-25-2022 Glucose [Mass/Vol] 141 mg/dL 70-100 [facility] Comment on above: ADA recommended refe rence rangeRandom Glucose Reference Range is dependent on time and content of last meal. Glucose of more than 200 mg/dL in a nonstressed, ambulatory subject supports the diagnosis of Diabetes Mellitus. Hematocrit Auto (Bld) [Volum e fraction]Ordered By: Jillian Edwards on 12-25-2022 Hematocrit (Bld) [Volume fraction] 44.6 % 38.8-50.0 [facility] Hemoglobin [Mass/volume] in BloodOrdered By: Mihaicandy Grace on 12-25-2022 Hemoglobin (Bld) [Mass/Vol] 14.8 g/dL 13.0-17.0 [facility] Hemogram CBC Without Diffon 12-25-2022 Erythrocyte distribution width (RBC) [Ratio] 13.5 % Normal 12.0-14.8 [facility] Comment on above: Order Comment: Reaso n for Exam Single kidney;Chronic kidney disease, stage II (mild);Diabet Performed By: #### C BCNO #### [address] Hematocrit (Bld) [Volume fraction] 44.6 % Normal 38.8-50.0 [facility] Comment on above: Order Comment: Reaso n for Exam Single kidney;Chronic kidney disease, stage II (mild);Diabet Performed By: #### C BCNO #### [address] Hemoglobin (Bld) [Mass/Vol] 14.8 g/dL Normal 13.0-17.0 [facility] Comment on above: Order Comment: Reaso n for Exam Single kidney;Chronic kidney disease, stage II (mild);Diabet Performed By: #### C BCNO #### [address] MCH (RBC) [Entitic mass] 29.7 pg Normal 27.5-35.2 [facility] Comment on above: Order Comment: Reaso n for Exam Single kidney;Chronic kidney disease, stage II (mild);Diabet Performed By: #### C BCNO #### [address] MCV (RBC) [Entitic vol] 89.3 fL Normal 83.5-101 F [facility] Comment on above: Order Comment: Reaso n for Exam Single kidney;Chronic kidney disease, stage II (mild);Diabet Performed By: #### C BCNO #### [address] Mean Corpuscular HGB Conc 33.3 g/dL Normal 32.5-35.6 [facility] Comment on above: Order Comment: Reaso n for Exam Single kidney;Chronic kidney disease, stage II (mild);Diabet Performed By: #### C BCNO #### [address] Platelet mean volume (Bld) [Entitic vol] 9.0 fL Normal 6.6-10.1 [facility] Comment on above: Order Comment: Reaso n for Exam Single kidney;Chronic kidney disease, stage II (mild);Diabet Result Comment: PERF ORMED BY: [place] [address] PATHOLOGIST [employer] GENE RAGLAND M.D. Performed By: #### C BCNO #### [address] Platelets (Bld) [#/Vol] 165 10*3/uL Normal 150-450 [facility] Comment on above: Order Comment: Reaso n for Exam Single kidney;Chronic kidney disease, stage II (mild);Diabet Performed By: #### C BCNO #### [address] RBC (Bld) [#/Vol] 5.00 10*6/uL Normal 3.90-5.60 [facility] Comment on above: Order Comment: Reaso n for Exam Single kidney;Chronic kidney disease, stage II (mild);Diabet Performed By: #### C BCNO #### [address] WBC (Bld) [#/Vol] 6.4 10*3/uL Normal 4.1-10.5 [facility] Comment on above: Order Comment: Reaso n for Exam Single kidney;Chronic kidney disease, stage II (mild);Diabet Performed By: #### C BCNO #### [address] Ketones Auto test strip (U) [Mass/Vol]Ordered By: Jillian Edwards on 12-25-2022 Ketones (U) [Mass/Vol] Negative Negative Fi [facility] Leukocytes [#/volume] correc jennifer for nucleated erythrocytes in Blood by Automated counOrdered By: Jillian Edwards on 12-25-2022 WBC corrected for nucl RBC Auto (Bld) [#/Vol] 6.4 10*3/uL 4.1-10.5 [facility] MCH Auto (RBC) [Entitic mass ]Ordered By: Jillian Edwards on 12-25-2022 MCH (RBC) [Entitic mass] 29.7 pg 27.5-35.2 [facility] MCHC Auto (RBC) [Mass/Vol]Or dered By: Jillian Edwards on 12-25-2022 MCHC (RBC) [Mass/Vol] 33.3 g/dL 32.5-35.6 [facility] MCV Auto (RBC) [Entitic vol] Ordered By: Jillian Edwards on 12-25-2022 MCV (RBC) [Entitic vol] 89.3 fL 83.5-101 F [facility] Nitrite Test strip Ql (U)Ord ered By: Jillian Edwards on 12-25-2022 Nitrite Ql (U) Negative Negative [facility] No Panel InformationOrdered By: Jillian Edwards on 12-25-2022 Estimated GFR (CKD-EPI) 59.308 mL/Min [facility] Creatinine Clearance (Chem N/A [facility] Parathyrin.intact [Mass/volu me] in Serum or PlasmaOrdered By: Jillian Edwards on 12-25-2022 Parathyrin.intact [Mass/Vol] 75.8 pg/mL [facility] Parathyroid Hormone Intacton 12-25-2022 Parathyroid Hormone Intact 75.8 pg/mL Normal [facility] Comment on above: Order Comment: Reaso n for Exam Single kidney;Chronic kidney disease, stage II (mild);Diabet Result Comment: PERF ORMED BY: [facility] [address] [place] [address] PATHOLOGIST [employer] GENE RAGLAND M.D. Performed By: #### P TH ####[facility] [id number] Phosphate [Mass/volume] in S elias or PlasmaOrdered By: Jillian Edwards on 12-25-2022 Phosphate [Mass/Vol] 2.9 mg/dL 3.7-7.2 [facility] Phosphoruson 12-25-2022 Phosphate [Mass/Vol] 2.9 mg/dL Low 3.7-7.2 [facility] Comment on above: Order Comment: Reaso n for Exam Single kidney;Chronic kidney disease, stage II (mild);Diabet Performed By: #### U AMBER, CMP, PHOS, [id number] #### [facility] [address] Platelet mean volume Auto (B ld) [Entitic vol]Ordered By: Jillian Edwards on 12-25-2022 Platelet mean volume (Bld) [Entitic vol] 9.0 fL 6.6-10.1 [facility] Platelets Auto (Bld) [#/Vol] Ordered By: Jillian Edwards on 12-25-2022 Platelets (Bld) [#/Vol] 165 10*3/uL 150-450 [facility] Potassium [Moles/volume] in Serum or PlasmaOrdered By: Jillian Edwards on 12-25-2022 Potassium [Moles/Vol] 4.1 mmol/L 3.5-5.1 [facility] Protein Auto test strip (U) [Mass/Vol]Ordered By: Jillian Edwards on 12-25-2022 Protein (U) [Mass/Vol] Negative Negative [facility] Protein Creat Ratio Ur Rando mon 12-25-2022 Creatinine, Urine (Random) 143.0 mg/dL High 14.0-26.0 [facility] Comment on above: Order Comment: Reaso n for Exam Single kidney;Chronic kidney disease, stage II (mild);Diabet Performed By: #### P ROCRERAT #### [facility] [address] Protein (U) [Mass/Vol] 8 mg/dL Normal 0-9 [facility] Comment on above: Order Comment: Reaso n for Exam Single kidney;Chronic kidney disease, stage II (mild);Diabet Performed By: #### P ROCRERAT #### [facility] [address] Urine Protein/Creatinine Ratio 56 mg/g{Cre} Normal 0-200 [facility] Comment on above: Order Comment: Reaso n for Exam Single kidney;Chronic kidney disease, stage II (mild);Diabet Result Comment: PERF ORMED BY: [facility] [address] [place] [address] PATHOLOGIST [employer] GENE RAGLAND M.D. Performed By: #### P ROCRERAT #### [facility] [address] Protein [Mass/volume] in Ser um or PlasmaOrdered By: Jillian Edwards on 12-25-2022 Protein [Mass/Vol] 6.8 g/dL 6.4-8.9 [facility] Protein [Mass/volume] in Uri neOrdered By: Jillian Edwards on 12-25-2022 Protein (U) [Mass/Vol] 8 mg/dL 0-9 [facility] RBC Auto (Bld) [#/Vol]Ordere d By: Jillian Edwards on 12-25-2022 RBC (Bld) [#/Vol] 5.00 10*6/uL 3.90-5.60 [facility] Serum or plasma albumin/glob ulin mass ratioOrdered By: Jillian Edwards on 12-25-2022 Albumin/Globulin [Mass ratio] 1.7 {ratio} [facility] Serum or plasma anion gap de terminationOrdered By: Jillian Edwards on 12-25-2022 Anion gap [Moles/Vol] 11.1 mmol/L 6.0-15.0 [facility] Sodium [Moles/volume] in Ser um or PlasmaOrdered By: Jillian Edwards on 12-25-2022 Sodium [Moles/Vol] 138 mmol/L 136-145 [facility] Specific gravity Auto test s trip (U) [Rel density]Ordered By: Jillian Edwards on 12-25-2022 Specific gravity (U) [Rel density] 1.019 1.001-1.030 [facility] US renal RTon 12-25-2022 US renal RT [facility] [place] [address] Ultrasound Report Signed Patient: Rocio Pang MR#: [id number] : 1945 Acct:[id number] Age/Sex: 77 / M ADM Date: 12/25/22 Loc: Room: Type: [facility] Attending Dr: Jillian Edwards MD Ordering Provider: [...] PROSTATOMEGALY. Impression dictated by: Addison Weber Jr., D.OMichela12/25/2022 11:36 AM Dictation Location: [place] [address] Tech: Ana Stark Transcribed By: CASI 12/25/22 1136 Dictated By: Addison Weber Jr, DO 12/25/22 1135 Signed By: 12/25/22 1136 Normal [facility] Urate [Mass/volume] in Serum or PlasmaOrdered By: Jillian Edwards on 12-25-2022 Urate [Mass/Vol] 7.6 mg/dL 2.4-7.6 [facility] Urea nitrogen [Mass/volume] in Serum or PlasmaOrdered By: Jillian Edwards on 12-25-2022 Urea nitrogen [Mass/Vol] 18 mg/dL 7-25 [facility] Uric Acidon 12-25-2022 Urate [Mass/Vol] 7.6 mg/dL Normal 2.4-7.6 [facility] Comment on above: Order Comment: Reaso n for Exam Single kidney;Chronic kidney disease, stage II (mild);Diabet Performed By: #### U AMBER, CMP, PHOS, [id number] #### [facility] [address] [place] [address] [place] Urinalysison 12-25-2022 Appearance (U) Clear Normal Clear [facility] Comment on above: Order Comment: Reaso n for Exam Single kidney;Chronic kidney disease, stage II (mild);Diabet Name Collection Type:: Clean-Voided Midstream Performed By: #### U A #### [facility] [address] [place] [address] [place] Bilirubin,Urine Negative Normal Negative [facility] Comment on above: Order Comment: Reaso n for Exam Single kidney;Chronic kidney disease, stage II (mild);Diabet Name Collection Type:: Clean-Voided Midstream Performed By: #### U A #### [facility] [address] [place] [address] [place] Color (U) Yellow Normal Yellow [facility] Comment on above: Order Comment: Reaso n for Exam Single kidney;Chronic kidney disease, stage II (mild);Diabet Name Collection Type:: Clean-Voided Midstream Performed By: #### U A #### [facility] [address] [place] [address] [place] Glucose Ql (U) Normal Normal Normal [facility] Comment on above: Order Comment: Reaso n for Exam Single kidney;Chronic kidney disease, stage II (mild);Diabet Name Collection Type:: Clean-Voided Midstream Performed By: #### U A #### [facility] [address] [place] [address] [place] Ketones Ql (U) Negative Normal Negative [facility] Comment on above: Order Comment: Reaso n for Exam Single kidney;Chronic kidney disease, stage II (mild);Diabet Name Collection Type:: Clean-Voided Midstream Performed By: #### U A #### [facility] [address] [place] [address] Leukocyte esterase Test strip Ql (U) Negative Normal Negative [facility] Comment on above: Order Comment: Reaso n for Exam Single kidney;Chronic kidney disease, stage II (mild);Diabet Name Collection Type:: Clean-Voided Midstream Performed By: #### U A #### [facility] [address] [place] [address] Nitrite,Urine Negative Normal Negative [facility] Comment on above: Order Comment: Reaso n for Exam Single kidney;Chronic kidney disease, stage II (mild);Diabet Name Collection Type:: Clean-Voided Midstream Performed By: #### U A #### [address] Occult Blood,Urine Negative Normal Negative [facility] Comment on above: Order Comment: Reaso n for Exam Single kidney;Chronic kidney disease, stage II (mild);Diabet Name Collection Type:: Clean-Voided Midstream Result Comment: PERF ORMED BY: [place] [address] PATHOLOGIST [employer] GENE RAGLAND M.D. Performed By: #### U A #### [address] pH (U) 5.5 [pH] Normal 5.0-9.0 [facility] Comment on above: Order Comment: Reaso n for Exam Single kidney;Chronic kidney disease, stage II (mild);Diabet Name Collection Type:: Clean-Voided Midstream Performed By: #### U A #### [facility] [address] [place] [address] [place] Protein,Urine Negative Normal Negative [facility] Comment on above: Order Comment: Reaso n for Exam Single kidney;Chronic kidney disease, stage II (mild);Diabet Name Collection Type:: Clean-Voided Midstream Performed By: #### U A #### [place] [address] [place] Specificy [place],Urine 1.019 Normal 1.001-1.030 [facility] Comment on above: Order Comment: Reaso n for Exam Single kidney;Chronic kidney disease, stage II (mild);Diabet Name Collection Type:: Clean-Voided Midstream Performed By: #### U A #### [facility] [address] Urobilinogen,Urine Normal Normal Normal [facility] Comment on above: Order Comment: Reaso n for Exam Single kidney;Chronic kidney disease, stage II (mild);Diabet Name Collection Type:: Clean-Voided Midstream Performed By: #### U A #### [facility] [address] [place] [address] Urine clarity by refractomet ry automatedOrdered By: Jillian Edwards on 12-25-2022 Clarity Refractometry automated (U) Clear Clear [facility] Urine glucose measurement by automated test strip (mass/volume)Ordered By: Jillian Edwards on 12-25-2022 Glucose Auto test strip (U) [Mass/Vol] Normal mg/dL Normal [facility] Urine hemoglobin detection b y automated test stripOrdered By: Jillian Edwards on 12-25-2022 Hemoglobin Auto test strip Ql (U) Negative Negative [facility] Urine leukocyte esterase det ection by automated test stripOrdered By: Jillian Edwards on 12-25-2022 Leukocyte esterase Auto test strip Ql (U) Negative Negative [facility] Urine protein/creatinine rat ioOrdered By: Jillian Edwards on 12-25-2022 Protein/Creatinine (U) [Ratio] 56 mg/g{Cre} 0-200 [facility] Urobilinogen Auto test strip (U) [Mass/Vol]Ordered By: Jillian Edwards on 12-25-2022 Urobilinogen (U) [Mass/Vol] Normal mg/dL Normal [facility] Vitamin D 25 Hydroxy Totalon 12-25-2022 Vitamin D 25 Hydroxy Total 24.7 ng/mL Low 30-100 [facility] Comment on above: Order Comment: Reaso n for Exam Single kidney;Chronic kidney disease, stage II (mild);Diabet Result Comment: JAMES MIN D STATUS 25([place])VITAMIN D RANGE (ng/mL) Deficient <20 Insufficient 20 to <30 Sufficient 30 to 100 Reference: Bandar Bal, Gregg MERAZ, et al. Evaluation,treatment, and prevention of vitamin D deficiency; an Endocrine Society clinical practice guideline. JCEM. 2010; 96(7):1911-30. PERFORMED BY: [facility] [address] [facility] [place] [address] PATHOLOGIST [employer] GENE RAGLAND M.D. Performed By: #### U AMBER, CMP, PHOS, [id number] ####[facility] [id number] [place] [address] [facility] Vitamin D+Metabolites [Mass/ volume] in Serum or PlasmaOrdered By: Jillian Edwards on 12-25-2022 Vitamin D+Metabolites [Mass/Vol] 24.7 ng/mL 30-100 [facility] Comment on above: VITAMIN D STATUS 25( [place])VITAMIN D RANGE (ng/mL) Deficient <20 Insufficient 20 to <30Sufficient 30 to 100Reference: Bandar Bal, Gregg MERAZ, et al. Evaluation,treatment, and prevention of vitamin D deficiency; an Endocrine Society clinical practice guideline. JCEM. 2010; 96(7):1911-30. pH Auto test strip (U)Ordere d By: Jillian Edwards on 12-25-2022 pH (U) 5.5 [pH] 5.0-9.0 [facility] COVID/FLU/RSV RT-PCRon 08-28 SARS-CoV-2 (COVID-19) RNA GERMAN+probe Ql (Unsp spec) Negative [employer] Other COVID/FLU/RSV RT-PCR Negative [facility] [employer] Other Quick Strepon 08-28-2022 S. pyogenes Org specific cx Ql (Throat) Negative [employer] Other Quick Strep [place] [employer] Other CT CSPINE WO CONon 2 CT [...] by: NATHAN URENA Date: 2022-03-11 14:35 Normal [facility] SARS-CoV-2 (COVID-19) RNA NA A+probe Ql (Resp)on 02-28-2022 SARS-CoV-2 (COVID-19) RNA GERMAN+probe Ql (Unsp spec) Negative [employer] Other [facility]19 [facility] 05[facility]24 SARS-CoV-2 (COVID-19) RNA GERMAN+probe Ql (Unsp spec) Not detected Normal NOT DETECTED [facility] Comment on above: Result Comment: This test is not yet approved or cleared by the [place] FDA. When there are no FDA-approved or cleared tests available, and other criteria are met, FDA can make tests available under an emergency access mechanism called an Emergency Use Authorization (EUA). The EUA for this test is supported by the [place] of Health and Human Service's (HHS's) declaration [...] consistent with SARS-CoV-2. Performed By: #### [facility] #### [facility] [address] [place] [address] Dr. Livier Johnson COVID Quick Testingon 2020 Result Negative [employer] Other Vital Signs Date Time Vital Sign Value Performing Clinician Facility 03-15-2024 09:13-0400 Body height 175.26 cm [facility] 03-15-2024 09:13-0400 Body mass index (BMI) [Ratio] 29.4 kg/m2 [facility] 03-15-2024 09:13-0400 Body temperature 96.7 [degF] [facility] 03-15-2024 09:13-0400 Body weight 90.32 kg [facility] 03-15-2024 09:13-0400 Diastolic blood pressure 70 mm[Hg] [facility] 03-15-2024 09:13-0400 Heart rate 64 /min [facility] 03-15-2024 09:13-0400 Respiratory rate 16 /min [facility] 03-15-2024 09:13-0400 SaO2% (BldA) [Mass fraction] 98 % [facility] 03-15-2024 09:13-0400 Systolic blood pressure 125 mm[Hg] [facility] 03-10-2024 10:49-0400 Blood Pressure Location Bernardo PHAN [facility] 03-10-2024 10:49-0400 Diastolic blood pressure 76 mm[Hg] Bernardo PHAN [facility] 03-10-2024 10:49-0400 Heart rate 71 /min Bernardoclaire PHAN [facility] 03-10-2024 10:49-0400 Respiratory rate 16 /min Bernardo PHAN [facility] 03-10-2024 10:49-0400 Systolic blood pressure 97 mm[Hg] Bernardo PHAN [facility] 01-24-2024 13:16-0400 Body height 175.26 cm [facility] 01-24-2024 13:16-0400 Body mass index (BMI) [Ratio] 29.7 kg/m2 [facility] 01-24-2024 13:16-0400 Body temperature 98.2 [degF] [facility] 01-24-2024 13:16-0400 Body weight 91.28 kg [facility] 01-24-2024 13:16-0400 Heart rate 76 /min [facility] 01-24-2024 13:16-0400 Respiratory rate 18 /min [facility] 01-24-2024 13:16-0400 SaO2% (BldA) [Mass fraction] 92 % [facility] 12-29-2023 10:16-0400 Body temperature 97.39 [degF] SHIRLEY Leal MD Work Phone: [facility] 12-29-2023 10:16-0400 Body weight 91.5 kg SHIRLEY Leal MD Work Phone: [facility] 12-29-2023 10:16-0400 Diastolic blood pressure 79 mm[Hg] SHIRLEY Leal MD Work Phone: [facility] 12-29-2023 10:16-0400 Heart rate 67 /min SHIRLEY Leal MD Work Phone: [facility] 12-29-2023 10:16-0400 Respiratory rate 18 /min SHIRLEY Leal MD Work Phone: [facility] 12-29-2023 10:16-0400 SaO2% (BldA) [Mass fraction] 96 % SHIRLEY Leal MD Work Phone: [facility] 12-29-2023 10:16-0400 Systolic blood pressure 156 mm[Hg] SHIRLEY Leal MD Work Phone: [facility] 11-03-2023 08:32-0400 Diastolic blood pressure 75 mm[Hg] Goyo Coleman MD PhD Work Phone: [facility] 11-03-2023 08:32-0400 Heart rate 67 /min Goyo Coleman MD PhD Work Phone: [facility] 11-03-2023 08:32-0400 Systolic blood pressure 150 mm[Hg] Goyo Coleman MD PhD Work Phone: [facility] 09-15-2023 08:40-0500 Body height 175.26 cm Jillian [employer] Other [employer] Other 09-15-2023 08:40-0500 Body mass index (BMI) [Ratio] 29.21 kg/m2 Azcandy [employer] Other [employer] Other 09-15-2023 08:40-0500 Body temperature 96.1 [degF] Azcandy [employer] Other [employer] Other 09-15-2023 08:40-0500 Body weight 89.72 kg Aziz [employer] Other [employer] Other 09-15-2023 08:40-0500 Diastolic blood pressure 72 mm[Hg] Aziz Bakhous Other [employer] Other 09-15-2023 08:40-0500 Respiratory rate 18 /min Azcandy [employer] Other [employer] Other 09-15-2023 08:40-0500 SaO2% (BldA) [Mass fraction] 97 % Jillian Edwards Other [employer] Other 09-15-2023 08:40-0500 Systolic blood pressure 128 mm[Hg] Jillian Edwards Other [employer] Other 03-05-2023 12:15-0400 Body height 175.26 cm Chuck Hamm Other [employer] Other 03-05-2023 12:15-0400 Body mass index (BMI) [Ratio] 28.68 kg/m2 Chuck Hamm Other [employer] Other 03-05-2023 12:15-0400 Body weight 88.09 kg Chuck Hamm Other [employer] Other 03-05-2023 12:15-0400 SaO2% (BldA) [Mass fraction] 98 % Chuck Hamm Other [employer] Other 02-27-2023 10:35-0400 Body height 175.26 cm Karine Torres Other [employer] Other 02-27-2023 10:35-0400 Body mass index (BMI) [Ratio] 29.65 kg/m2 Karine Torres Other [employer] Other 02-27-2023 10:35-0400 Body temperature 98.3 [degF] Karine Torres Other [employer] Other 02-27-2023 10:35-0400 Body weight 91.08 kg Karine Torres Other [employer] Other 02-27-2023 10:35-0400 Diastolic blood pressure 69 mm[Hg] Karine Torres Other [employer] Other 02-27-2023 10:35-0400 Respiratory rate 18 /min Karine Torres Other [employer] Other 02-27-2023 10:35-0400 SaO2% (BldA) [Mass fraction] 94 % Karine Torres Other [employer] Other 02-27-2023 10:35-0400 Systolic blood pressure 135 mm[Hg] Karine Torres Other [employer] Other 01-20-2023 11:20-0400 Body height 175.26 cm Jlilian [employer] Other [employer] Other 01-20-2023 11:20-0400 Body mass index (BMI) [Ratio] 29.3 kg/m2 Jillian Adonit Other [employer] Other 01-20-2023 11:20-0400 Body temperature 97.2 [degF] Jillian Adonit Other [employer] Other 01-20-2023 11:20-0400 Body weight 89.99 kg Jillian Adonit Other [employer] Other 01-20-2023 11:20-0400 Diastolic blood pressure 74 mm[Hg] Jillian Adonit Other [employer] Other 01-20-2023 11:20-0400 Respiratory rate 18 /min Jillian Edwards Other [employer] Other 01-20-2023 11:20-0400 SaO2% (BldA) [Mass fraction] 96 % Jillian Edwards Other [employer] Other 01-20-2023 11:20-0400 Systolic blood pressure 124 mm[Hg] Jillain Edwards Other [employer] Other 12-31-2022 13:21-0400 Body temperature 97.5 [degF] SHIRLEY Leal MD Work Phone: [facility] 12-31-2022 13:21-0400 Body weight 92.81 kg SHIRLEY Leal MD Work Phone: [facility] 12-31-2022 13:21-0400 Diastolic blood pressure 74 mm[Hg] SHIRLEY Leal MD Work Phone: [facility] 12-31-2022 13:21-0400 Heart rate 69 /min SHIRLEY Leal MD Work Phone: [facility] 12-31-2022 13:21-0400 Respiratory rate 18 /min SHIRLEY Leal MD Work Phone: [facility] 12-31-2022 13:21-0400 SaO2% (BldA) [Mass fraction] 97 % SHIRLEY Leal MD Work Phone: [facility] 12-31-2022 13:21-0400 Systolic blood pressure 152 mm[Hg] SHIRLEY Leal MD Work Phone: [facility] 08-28-2022 10:30-0500 Body height 175.26 cm Karine Torres Other [employer] Other 08-28-2022 10:30-0500 Body mass index (BMI) [Ratio] 28.79 kg/m2 Karine Torres Other [employer] Other 08-28-2022 10:30-0500 Body temperature 99.3 [degF] Karine Torres Other [employer] Other 08-28-2022 10:30-0500 Body weight 88.45 kg Karine Torres Other [employer] Other 08-28-2022 10:30-0500 Respiratory rate 18 /min Karine Torres Other [employer] Other 08-28-2022 10:30-0500 SaO2% (BldA) [Mass fraction] 97 % Karine Torres Other [employer] Other 06-24-2022 11:00-0400 Body height 175.26 cm Jillian [employer] Other [employer] Other 06-24-2022 11:00-0400 Body mass index (BMI) [Ratio] 29.86 kg/m2 Jillian Adonit Other [employer] Other 06-24-2022 11:00-0400 Body temperature 96.7 [degF] Jillian Adonit Other [employer] Other 06-24-2022 11:00-0400 Body weight 91.72 kg Jillian [employer]on[employer] Other [employer] Other 06-24-2022 11:00-0400 Diastolic blood pressure 67 mm[Hg] Jillian Adonit Other [employer] Other 06-24-2022 11:00-0400 Respiratory rate 18 /min Jillian Edwards Other [employer] Other 06-24-2022 11:00-0400 SaO2% (BldA) [Mass fraction] 96 % Jillian Edwards Other [employer] Other 06-24-2022 11:00-0400 Systolic blood pressure 136 mm[Hg] Jillian Edwards Other [employer] Other 03-09-2022 10:02-0400 Blood Pressure Location Bernardo PHAN [facility] 03-09-2022 10:02-0400 Diastolic blood pressure 68 mm[Hg] Bernardo PHNA [facility] 03-09-2022 10:02-0400 Heart rate 68 /min Bernardo PHAN [facility] 03-09-2022 10:02-0400 Systolic blood pressure 136 mm[Hg] Bernardo PHAN [facility] 03-06-2022 10:45-0400 Body height 175.26 cm Chuck Hansel Other [employer] Other 03-06-2022 10:45-0400 Body mass index (BMI) [Ratio] 29.18 kg/m2 Chuck Hamm Other [employer] Other 03-06-2022 10:45-0400 Body weight 89.63 kg Chuck Hamm Other [employer] Other 03-06-2022 10:45-0400 Diastolic blood pressure 68 mm[Hg] Chuck Hamm Other [employer] Other 03-06-2022 10:45-0400 SaO2% (BldA) [Mass fraction] 95 % Chuck Hamm Other [employer] Other 03-06-2022 10:45-0400 Systolic blood pressure 126 mm[Hg] Chuck Hamm Other [employer] Other 02-28-2022 10:30-0400 Body height 175.26 cm Karine Torres Other [employer] Other 02-28-2022 10:30-0400 Body mass index (BMI) [Ratio] 28.79 kg/m2 Karine Torres Other [employer] Other 02-28-2022 10:30-0400 Body temperature 98.4 [degF] Karine Torres Other [employer] Other 02-28-2022 10:30-0400 Body weight 88.45 kg Karine Torres Other [employer] Other 02-28-2022 10:30-0400 Respiratory rate 18 /min Karine Torres Other [employer] Other 02-28-2022 10:30-0400 SaO2% (BldA) [Mass fraction] 96 % Karine Romanmond Other [employer] Other 10-17-2021 13:00-0500 Body height 175.26 cm Chuck Hamm Other [employer] Other 10-17-2021 13:00-0500 Body mass index (BMI) [Ratio] 30.03 kg/m2 Chuck Hamm Other [employer] Other 10-17-2021 13:00-0500 Body weight 92.26 kg Chuck Hamm Other [employer] Other 10-17-2021 13:00-0500 Diastolic blood pressure 70 mm[Hg] Chuck Hamm Other [employer] Other 10-17-2021 13:00-0500 SaO2% (BldA) [Mass fraction] 98 % Chuck Hamm Other [employer] Other 10-17-2021 13:00-0500 Systolic blood pressure 118 mm[Hg] Chuck Hamm Other [employer] Other 06-14-2021 10:00-0400 Body height 175.26 cm Jenn Thomas Other [employer] Other 05-23-2021 13:30-0400 Body height 175.26 cm Karine Torres Other [employer] Other 05-23-2021 13:30-0400 Body mass index (BMI) [Ratio] 30.27 kg/m2 Karine Torres Other [employer] Other 05-23-2021 13:30-0400 Body temperature 97.1 [degF] Karine Torres Other [employer] Other 05-23-2021 13:30-0400 Body weight 92.99 kg Karine Torres Other [employer] Other 05-23-2021 13:30-0400 Respiratory rate 16 /min Karine Torres Other [employer] Other 05-23-2021 13:30-0400 SaO2% (BldA) [Mass fraction] 94 % Karine Torrse Other [employer] Other Encounters Encounter Date Encounter Type Care Provider Facility Start: 03-16-2025 ambulatory Bernardo PHAN Facili ty:[facility] Start: 04-17-2024 End: 04-17-2024 ambulatory WANDA Alexis MORENO Not Available Start: 03-15-2024 End: 03-15-2024 ambulatory [facility] Work Phone: Start: 03-15-2024 End: 03-15-2024 Patient encounter procedure [facility] Physician [facility] Nephrology Work Phone: Start: 03-10-2024 End: 03-10-2024 ambulatory Bernardo PHAN Facility: [facility] Start: 03-10-2024 End: 03-10-2024 Patient encounter procedure [facility] PHAN [facility] Start: 03-06-2024 Non-patient / Non-visit [facility] Work Phone: Start: 01-24-2024 End: 01-24-2024 ambulatory [facility] Work Phone: Start: 01-24-2024 End: 01-24-2024 Patient encounter procedure [facility] Urgent Care N[facility] Work Phone: Start: 12-29-2023 End: 12-29-2023 ambulatory NATAN KEYES Facility:[facility] Start: 12-29-2023 End: 12-29-2023 Patient encounter procedure Stanley Leal MD Work Phone: Radiation Oncology Comment on above: History of prostate cancer (Primary Dx) Start: 12-28-2023 End: 12-28-2023 ambulatory WANDA IRELANDSELVIN Not Available Start: 11-12-2023 End: 11-12-2023 ambulatory [facility] Ambulatory Start: 11-12-2023 End: 11-12-2023 Postop follow up visit related to original px Goyo Coleman MD PhD Work Phone: [facility] Comment on above: Melanoma in situ of forehead (CMS/HCC); Encounter for change or removal of nonsurgical wound dressing Start: 11-03-2023 End: 11-03-2023 ambulatory [facility] Ambulatory Start: 11-03-2023 End: 11-03-2023 Patient encounter procedure Goyo Coleman MD PhD Work Phone: [facility] Comment on above: Melanoma in situ of forehead (CMS/HCC) Start: 09-27-2023 Bamboo flowsheet Julian A Fel ter MANAGER CT-[employer] Work Phone: [facility] Start: 09-27-2023 Bamboo flowsheet Julian A Fel ter MANAGER CT-[employer] Work Phone: [facility] Start: 09-27-2023 End: 09-27-2023 ambulatory JULIAN HEBERT Not Available Start: 09-21-2023 End: 09-21-2023 ambulatory Jillian Edwards Other [employer] Other Start: 09-21-2023 Telephone encounter Jillian [facility] Start: 09-15-2023 Office outpatient vi sit 15 minutes Jillian FIELDS [facility] Start: 09-15-2023 End: 09-15-2023 ambulatory Natan Keyes Facility:[facility] Start: 09-15-2023 End: 09-15-2023 ambulatory MD Natan Keyes Work Phone: [employer] Other Start: 09-15-2023 End: 09-15-2023 Patient encounter procedure MD Natan Keyes Work Phone: [facility] [place] Work Phone: Start: 07-07-2023 ambulatory Sudheer Leei ty:CC Jose L Start: 07-05-2023 Patient encounter procedure Julian Hebert MANAGER CT-[employer]OPMENT Work Phone: [facility] Start: 07-05-2023 End: 07-05-2023 ambulatory NATAN Prescott STEPHY Not Available Start: 05-20-2023 End: 05-20-2023 ambulatory Rugen M Stephy Facility:[facility] Start: 05-20-2023 End: 05-20-2023 ambulatory MD Natan Keyes Work Phone: [facility] Work Phone: Start: 05-20-2023 End: 05-20-2023 Patient encounter procedure MD Natan Keyes Work Phone: [facility]Flu Vaccine Start: 04-07-2023 End: 04-07-2023 ambulatory Rugen Kenyon Keyes Facility:[facility] Start: 04-07-2023 End: 04-07-2023 Patient encounter procedure MD Natan Keyes Work Phone: [facility] [address] Work Phone: Start: 03-12-2023 End: 03-12-2023 ambulatory Bernardo PHAN Facility:[facility] Start: 03-05-2023 End: 03-05-2023 ambulatory Chuck Hamm Other [employer] Other Start: 03-05-2023 Office outpatient vi sit 25 minutes Chuck Hamm [facility] Start: 02-27-2023 End: 02-27-2023 ambulatory Karine Torres Other [employer] Other Start: 02-27-2023 Office outpatient vi sit 15 minutes Karinekrystal Torres [facility] Start: 01-20-2023 End: 01-20-2023 ambulatory Aziz Bakhous Other [employer] Other Start: 01-20-2023 Office outpatient vi sit 25 minutes Aziz Bakhous [facility] Start: 12-31-2022 End: 12-31-2022 Patient encounter procedure Stanley Leal MD Work Phone: Radiation Oncology Comment on above: History of prostate cancer (Primary Dx) Start: 12-25-2022 End: 12-25-2022 ambulatory Natan Keyes Facility:[facility] Start: 12-25-2022 End: 12-25-2022 ambulatory MD Natan Keyes Work Phone: [facility] Work Phone: Start: 12-25-2022 End: 12-25-2022 Patient encounter procedure MD Natan Keyes Work Phone: [facility] [place] Work Phone: Start: 08-28-2022 End: 08-28-2022 ambulatory Karine Torres Other [employer] Other Start: 08-28-2022 Office outpatient vi sit 25 minutes Karinekrystal Torres [facility] Start: 06-24-2022 End: 06-24-2022 ambulatory Aziz Bakmoons Other [employer] Other Start: 06-24-2022 Office outpatient ne w 30 minutes Aziz Bakhous [facility] Start: 03-12-2022 End: 03-12-[address] NATAN KEYES Facility:[facility] Start: 03-11-2022 End: 03-11-[address] NATAN KEYES Facility:[facility] Start: 03-09-2022 End: 03-09-2022 Patient encounter procedure Bernardo Khan ANA MARIA [facility] Start: 03-06-2022 End: 03-06-2022 ambulatory Chuck Hamm Other [employer] Other Start: 03-06-2022 Office outpatient vi sit 15 minutes Chuck Hamm [facility] Start: 02-28-2022 End: 02-28-2022 ambulatory Karine Melissa Other [employer] Other Start: 02-28-2022 Office outpatient vi sit 15 minutes Karine Melissa [facility] Start: 02-12-2022 (Procedure) Short Chuck Hamm [facility] Start: 02-12-2022 End: 02-12-2022 ambulatory Chuck Hamm Other [employer] Other Start: 12-01-2021 Refill G Yobani lemos MD Work Phone: Radiation Oncology Comment on above: Refill Request Start: 10-17-2021 End: 10-17-2021 ambulatory Chuck Hamm Other [employer] Other Start: 10-17-2021 Office outpatient vi sit 15 minutes Chuck Hamm [facility] Start: 08-22-2021 ambulatory MARY AKKINA Facility:[facility] Start: 06-17-2021 End: 06-17-[address] NATAN KEYES Facility:[facility] Start: 06-14-2021 Office outpatient vi sit 15 minutes Jenn Ginty [facility] Start: 05-23-2021 Office outpatient vi sit 15 minutes Karine Melissa [facility] Start: 04-23-2021 ambulatory MARY AKKINA Facility:[facility] Start: 04-08-2020 End: 04-08-2020 Documentation procedure External Provider [facility] Start: 04-08-2020 External Correspondence External Pro vider External-[facility] Start: 04-08-2020 End: 04-08-2020 Patient encounter procedure External Provider [facility] Start: 04-08-2020 Results Only External Provider Exter nal-Non[facility] Procedures Date Procedure Procedure Detail Performing Clinician Start: 12-24-2023 PSA screening [facility] Provi shadia Start: 11-12-2023 FOLLOW UP IN DERMATOLOGY GOYO COLEMAN Start: 11-03-2023 SHADIA NURSING COMMUNIC ATION - LIDOCAINE INJ GOYO COLEMAN Start: 11-03-2023 MOHS SURGERY GOYO MEYER OLL Start: 11-03-2023 MOHS SURGERY Goyo ferrell MD PhD Work Phone: Start: 04-07-2023 MR lumbar spine wo con MD Natan Keyes Work Phone: Start: 04-07-2023 X-ray of lumbar spin e, four views MD Natan Keyes Work Phone: Start: 12-25-2022 Ultrasonography of r ight kidney MD Natan Keyes Work Phone: Start: 11-04-2021 Adult depression scr eening assessment SHIRLEY Leal MD Work Phone: Start: 12-21-2020 Radiation therapy care Bernardo PHAN Start: 04-08-2020 EXTERNAL IMAGING [place] Manager al Provider Start: 04-08-2020 End: 04-08-2020 EXTERNAL [...] prostate cancer Expected: 12/28/2024 (Approximate), Expires: 03/29/2025 [facility] Work Phone: Comment on above: Expected: 12/28/2024 (Approximate), Expires: 03/29/2025 Start: 12-27-2024 End: 12-27-2024 Patient encounter procedure 12/27/2024 9:45 AM EDT Office Visit Rad[facility] Oncology [address] [place] [address] [place] [address] Stanley Leal MD [address] [place] [address] [place] [address] 1 Yr Follow Up labs [facility] Rad[facility] Oncology Comment on above: 1 Yr Follow Up labs [facility] Start: 11-16-2024 Glaucoma screening Diabetes: R etinopathy Screening [facility] Start: 07-05-2024 Medicare Annual Wellness (AWV) Medicare Annual Wellness (AWV) [facility] Start: 07-04-2024 Pneumococcal Vaccine : 65+ Years (2 - PPSV23 or PCV20) Pneumococcal Vaccine: 65+ Years (2 - PPSV23 or PCV20) [facility] Comment on above: Postponed from 08/15 (Other Patient Reasons) Start: 02-05-2024 DIABETES SCREEN DIABETES SCREEN [facility] Start: 01-01-2024 End: 03-02-2024 Prostate specific Ag [Mass/volume] in Serum or Plasma PSA/PROSTSPECAG DIAG Lab Routine History of prostate cancer Expected: 01/01/2024, Expires: 03/02/2024 [facility] Work Phone: Comment on above: Expected: 01/01/2024 , Expires: 03/02/2024 Start: 11-12-2023 End: 11-12-2023 Patient encounter procedure 11/12/2023 11:00 AM EDT Office Visit [facility] [address] [facility] [address] [place] [id number] Goyo Coleman MD PhD [address] [place] [address] [facility] Start: 10-05-2023 Hemoglobin A1c measurement Diabetes: Hemoglobin A1C [facility] Start: 08-23-2023 Advance Directive Discussion Advance Directive Discussion [facility] Start: 08-23-2023 Behavioral Health Screening Behavioral Health Screening [facility] Start: 04-23-2023 COVID-19 Vaccine () COVID-19 Vaccine ( season) [facility] Start: 04-23-2023 Influenza vaccination INFLUENZ A (Season Ended) [facility] Start: 11-04-2022 Adult depression screening assessment DEPRESSION SCREENING [facility] Start: 08-23-2022 ADVANCE DIRECTIVE DISCUSSION ADVANCE DIRECTIVE DISCUSSION [facility] Start: 08-23-2022 DEPRESSION ASSESSMENT DEPRESSION ASS ESSMENT [facility] Start: 09-10-2021 COVID-19 VACCINE (4 - Booster for Moderna series) COVID-19 VACCINE (4 - Booster for Moderna series) [facility] Start: 08-23-2021 ADVANCE DIRECTIVE DISCUSSION ADVANCE DIRECTIVE DISCUSSION [facility] Start: 06-20-2020 Pneumococcal Vaccine : 65+ (2 of 2 - PPSV23 or PCV20) Pneumococcal Vaccine: 65+ (2 of 2 - PPSV23 or PCV20) [facility] Start: 06-20-2020 Pneumococcal Vaccine : 65+ Years (2 - PPSV23 or PCV20) Pneumococcal Vaccine: 65+ Years (2 - PPSV23 or PCV20) [facility] Start: 04-23-2020 Influenza vaccination INFLUENZA (#1) [facility] Start: 2010 ADVANCE DIRECTIVE DISCUSSION ADVANCE DIRECTIVE DISCUSSION [facility] Start: 2010 PNEUMOCOCCAL: 65+ (1 - PCV) PNEUMOCOCCAL: 65+ (1 - PCV) [facility] Start: 2010 PNEUMOVAX AGE 65 AND OVER WITH 5YR LOOKBACK (#1) PNEUMOVAX AGE 65 AND OVER WITH 5YR LOOKBACK (#1) [facility] Start: 05-16-2006 LIPID SCREEN LIPID SCREEN [facility] Start: 2005 RSV Vaccine (1 - 1-d ose 60+ series) RSV Vaccine (1 - 1-dose 60+ series) [facility] Start: 10-12-2004 DIABETES SCREEN DIABETES SCREEN [facility] Start: 10-12-2004 Diabetes Screening Diabetes Screenin g [facility] Start: 10-30-1995 SHINGRIX VACCINE (1 of 2) SHINGRIX VACCINE (1 of 2) [facility] Start: 10-30-1995 Tuberculosis screening COLOREC HAROLDO CANCER SCREENING,SEE MODIFIER [facility] Start: 10-30-1995 Zoster Vaccines (1 o f 2) Zoster Vaccines (1 of 2) [facility] Start: 10-30-1967 DTaP/Tdap/Td Vaccine s (1 - Tdap) DTaP/Tdap/Td Vaccines (1 - Tdap) [facility] Start: 1964 Urine microalbumin profile [facility] Start: 10-30-1963 Hepatitis C screening Hepatitis C Sc [facility] Start: 05-01-1946 Examination of skin Derm Melan mayra Skin Check [facility] Start: 1945 Lipid panel Lipid Panel [facility] Start: 1945 Yearly Adult Physical Yearly Adult P hysical [facility] Renal function 2000 panel - Serum or Plasma [facility] Immunizations Immunization Date Immunization Notes Care Provider Haseeb magana 05-20-2023 influenza, injectable, quadrivalent, preservative free Julian Hebert MANAGER CT-[employer] Work Phone: [facility] 06-02-2022 influenza, high dose seasonal, preservative-free Julian Hebert MANAGER [employer]OP[employer] Work Phone: [facility] 06-11-2021 influenza, injectable, quadrivalent, preservative free Julian Hebert MANAGER [employer]OP[employer] Work Phone: [facility] 11-01-2020 COVID-19 vaccine, full dose (MODERNA) SHIRLEY Leal MD Work Phone: [facility] 10-04-2020 COVID-19 vaccine, full dose (MODERNA) SHIRLEY Leal MD Work Phone: [facility] 06-05-2020 influenza, seasonal, injectable Julian Hebert MANAGER CT-[employer]OPMENT Work Phone: [facility] 05-24-2020 Influenza, High-dose Seasonal, Quadrivalent, Preservative Free Julian Hebert MANAGER CT-[employer]OPMENT Work Phone: [facility] 06-20-2019 influenza, high dose seasonal, preservative-free Julian Hebert MANAGER CT-[employer]OPMENT Work Phone: [facility] 06-20-2019 Influenza, High-dose Seasonal, Quadrivalent, Preservative Free Julian Hebert MANAGER CT-[employer]ELOPMENT Work Phone: [facility] 06-20-2019 pneumococcal conjugate vaccine, 13 valent Julian Hebert MANAGER CT-[employer]OPMENT Work Phone: [facility] 06-05-2019 influenza, seasonal, injectable Julian Hebert MANAGER CT-[employer]ELOPMENT Work Phone: [facility] 06-20-2018 influenza, high dose seasonal, preservative-free Julian Hebert MANAGER CT-[employer]OPMENT Work Phone: [facility] 06-20-2018 Influenza, High-dose Seasonal, Quadrivalent, Preservative Free Julian Hebert MANAGER CT-[employer]OPMENT Work Phone: [facility] 06-24-2017 influenza, seasonal, injectable Julian Hebert MANAGER CT-[employer]OPMENT Work Phone: [facility] 06-24-2017 pneumococcal Conjugate, unspecified formulation Julian Hebert MANAGER [employer]OP[employer] Work Phone: [facility] 06-23-2017 influenza virus vaccine, split virus (incl. purified surface antigen) Julian Hebert MANAGER CT-[employer]OPMENT Work Phone: [facility] 06-11-2015 influenza, injectable, quadrivalent, preservative free Julian Hebert MANAGER CT-[employer]ELOPMENT Work Phone: [facility] NEGATED: Highlighted row has not occurred!03-09-2022 SARS-CoV-2 mRNA (tozinameran 5y-11y) vaccine Bernardo PHAN [facility] Payers Date Payer Category Payer Self-pay [id number] 2020 Medicare [id number] 2020 Unknown HOSPITAL/MEDICAL GENERIC MEDICAL GENERIC [id number] 2020-Present [phone] [address] [address] [place] [address] Indemnity [id number] 2020 Unknown [id number] 2010 Medicare [id number] 1959 Medicare [id number] 1959 Private Health Insurance [id number] 1959 Self-pay [id number] 1959 Unknown [id number] [id number] 1945 Unknown [id number] 2.16.840.1.547652.3.579.2 .593 1945 Unknown [id number] 2.16.840.1.761415.3.579.2 .593 1945 Unknown [id number] 2.16.840.1.985651.3.579.2 .593 1945 Unknown [id number] 2.16.840.1.401063.3.579.2 .593 1945 Unknown [id number] 2.16.840.1.044397.3.579.2 .593 1945 Unknown [id number] 2.16.840.1.991343.3.579.2 .1244 1945 Unknown [id number] 2.16.840.1.127032.3.579.2 .1244 1945 Unknown [id number] 2.16.840.1.072706.3.579.2 .727 1945 Unknown [id number] 2.16.840.1.670767.3.579.2 .727 1945 Unknown [id number] 2.16.840.1.881842.3.579.2 .727 1945 Unknown [id number] 2.16.840.1.299728.3.579.2 .727 1945 Unknown [id number] 2.840.1.356122.3.579.2 .1259 1945 Unknown [id number] 2..840.1.023036.3.579.2 .1259 1945 Unknown [id number] 2.840.1.536212.3.579.2 .1259 1945 Unknown [id number] 2.16.840.1.726616.3.579.2 .1259 Medicare Medicare Nonpatient [id number] Unknown [id number] 2.840.1.188049.3.579.2 .531 Unknown [id number] 2.16840.1.957284.3.579.2 .531 Unknown [id number] 2.16840.1.143955.3.579.2 .531 Unknown [id number] 2.16840.1.000499.3.579.2 .531 Social History Date Type Detail Facility Tobacco smoking status OHIS Unknown if ever smoked [facility] Start: 1945 [facility] Exposure to SARS-CoV-2 (event) Unable to assess [facility] Start: 04-17-2020 End: 03-15-2024 Tobacco smoking status NHIS Never smoked tobacco [facility] Start: 04-17-2020 End: 05-20-2022 Tobacco use and exposure Smokeless tobacco non-user [facility] Start: 05-06-2021 End: 12-31-2022 Alcohol intake Current drinker of alcohol (finding) [facility] Start: 04-17-2020 History SDOH Alcohol Frequency 2 [facility] Start: 10-25-2021 End: 11-12-2023 Exposure to SARS-CoV-2 (event) Not sure [facility] Start: 12-31-2022 End: 07-04-2023 Sex Assigned At [employer] Other Tobacco smoking status Never [facility] Start: 1945 Sex Assigned At Male F [facility] Start: 07-04-2023 Alcohol intake Lifetime non-d lula (finding) [facility] Start: 12-31-2022 End: 07-04-2023 History of Social function [facility] Start: 03-19-2023 Sexual orientation Heterosexual (fin sheryl) [facility] Tobacco smoking status NHIS Tobacco smoking consumption unknown [facility] Work Phone: How often to you hav e a drink containing alcohol? Monthly or less [facility] NEGATED: Highlighted rowStart: NINF History of tobacco use Passive smoker [facility] Functional Status Date Assessment Result Facility 03-10-2024 Functional Status N/A [facility] 03-09-2022 Functional Status N/A [facility] Clinical Notes 05-23-2021 to 03-10-2024 Stanley Leal MD - 12/29/2023 10:22 AM Dora Hansen RN - 12/29/2023 10:17 AM Dora Hansen RN - 12/29/2023 10:17 AM Huey Perez, JOSE - 11/12/2023 11:00 AM EDT Note Date & Type Note Facility 03-10-2024 Hospital Discharge instructions Patient Education 03/10/2024 11:22:14 Benign Prostatic Hyperplasia Benign Prostatic Hyperplasia Benign [...] urethra. Follow these instructions at home: Take [id number] and prescription medicines only as told by your health care provider. Monitor your symptoms for any changes. Contact your health care provider with any changes. Avoid drinking large amounts of liquid before going to bed or out in public. Avoid or reduce how much caffeine or alcohol you drink. Give yourself time when you urinate. Keep all follow-up visits. This is important. Contact a health care provider if: You have unexplained back pain. Your symptoms do not get better with treatment. You develop side effects from the medicine you are taking. Your urine becomes very dark or has a bad smell. Your lower abdomen becomes distended and you have trouble passing urine. Get help right away if: You have a fever or chills. You suddenly cannot urinate. You feel light-headed or very dizzy, or you faint. There are large amounts of blood or clots in your urine. Your urinary problems become hard to manage. You develop moderate to severe low back or flank pain. The flank is the side of your body between the ribs and the hip. These symptoms may be an emergency. Get help right away. Call 911. Do not wait to see if the symptoms will go away. Do not drive yourself to the hospital. Summary Benign prostatic hyperplasia (BPH) is an enlarged prostate that is caused by the normal aging process. It is not caused by cancer. An enlarged prostate can press on the urethra. This can make it hard to pass urine. This condition is more likely to develop in men older than 50 years. Get help right away if you suddenly cannot urinate. This information is not intended to replace advice given to you by your health care provider. Make sure you discuss any questions you have with your health care provider. Document Revised: 02/25/2022 Document Reviewed: 02/25/2022 [employer] Patient Education 2022 Do It In Person. Follow Up Care 03/12/2023 09:11:12 With:ANA MARIA PADILLA, Bernardo Khan, URL Address: [address] [place], [place] [id number]- When: Unknown [facility] 03-10-2024 Note Patient Education Urology Benign Prostatic Hyperplasia Benign [...] Follow these instructions at home: ? Take umob-eno-zrerngu and prescription medicines only as told by [...] better with treatment. ? You develop side effec (more content not included)... [facility] 12-29-2023 Note HNO ID: [id number] Author: Stanley LEAL MD Service: ? Author [...] ASSESSMENT/PLAN: Prostate adenocarcinoma, initial PSA 8.5, biopsy Ivesdale score 3 + 4 = 7 (grade [...] as active information included in the EMR. [facility] 12-29-2023 History of Present illness Narrative [...] in the EMR. documented in this encounter [facility] 12-29-2023 Nurse Note AUA 8 Dora Greenyer, RN [facility] 12-29-2023 Nurse Note MIESHA Khanna RN documented in this encounter [facility] 11-12-2023 History of Present illness Narrative Images from the original note were not included. Office Follow Up Note Visit Summary Chief Complaint 1. Complaint Wound check. Rocio Pang is a 78 y.o. male who presents for 1 week follow up after surgery for a melanoma. The patient has no concerns today. Location Operation site location: right sikhism On exam, Mr. 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 Pt advised to use [...] return as needed. documented in this encounter [facility] Work Phone: 11-03-2023 History of Present illness Narrative Images from the original note were not included. Office Visit Note Date: 11/03/2023 Surgeon: Goyo Coleman MD PhD Office Location: [place] [id number] Dept: [phone] Dept Referring Provider: Julian Hebert, MANAGER CT-[employer]OP[employer] [address] [place] [address] Subjective Rocio Pang is a 78 y.o. [...] Surgeon: Goyo Coleman MD PhD Office Location: [address] [facility] [address] Dept: [phone] Dept Referring Provider: Julian Hebert, MANAGER CT-VP [employer]POR[employer] DEVELOPMENT [address] [facility] [address] [place] [address] Assessment/Plan Pre-procedure: Obtained informed consent: written from [...] Left Forehead Mohs surgery Consent obtained: written [place] Protocol: Procedure explained and questions answered to [...] sodium bicarbonate Procedure Details: Biopsy accession number: [id number] Date of biopsy: 09/27/2023 Frozen section biopsy [...] hematoxylin and eosin and also immunostained with [place]-1. A 3 mm biopsy of adjacent tissue was taken and used to establish a baseline with hematoxylin and eosin and [place]-1 immunostains. The debulk showed melanoma in situ. The specimen was processed using immunostains with [place]-1. Tumor features identified on Mohs section: no [...] and will follow up with their primary adult education manager as scheduled. 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 I asked the patient to take mkhl-uoz-hkfgpvg vitamin D supplement 2000 units daily. I [...] Renal ultrasound revealed prostatomegaly.No urinary obstructive symptoms. [employer] Other 07-14-2023 Evaluation note* Encounter Date Diagnosis [...] (ICD-10 - M51.36) Follow up after imaging. [employer] Other 07-08-2023 Evaluation note* Encounter Date Diagnosis [...] - H10.13) Feb, Bronchitis (ICD-10 - J40) [employer] Other 05-31-2023 Evaluation note* Encounter Date Diagnosis [...] 24. I asked the patient to take zuvd-lti-xcwukdh vitamin D supplement 2000 units daily. I [...] Renal ultrasound revealed prostatomegaly.No urinary obstructive symptoms. [employer] Other 05-11-2023 History of Present illness Narrative* G Yobani Leal MD - 12/31/2022 1:17 PM EDT [...] ASSESSMENT/PLAN: Prostate adenocarcinoma, initial PSA 8.5, biopsy Ivesdale score 3 + 4 = 7 (grade [...] included in the EMR. [facility]* Encounter Date Diagnosis Assessment Notes [...] days. Aug, Sore throat (ICD-10 - J02.9) [employer] Other 11-02-2022 Evaluation note* Encounter Date Diagnosis [...] follows with his PCP for diabetes management [employer] Other 07-18-2022 Hospital Discharge instructions Patient Education [...] 08/09/2006 Document Revised: 04/28/2019 Document Reviewed: 07/09/2017 [employer] Patient Education 2020 [employer] 03/09/2022 10:22:48 Benign Prostatic Hyperplasia Benign Prostatic [...] urethra. Follow these instructions at home: Take zmgi-zkf-dbglilw and prescription medicines only as told by [...] 08/09/2006 Document Revised: 07/04/2019 Document Reviewed: 09/13/2017 [employer] Patient Education [employer] Follow Up Care 02/13/2022 14:37:55 With:ANA MARIA PADILLA, Bernardo Khan, URL Address: [facility] [address] , [place] [phone] When:Within 1 Year(s) Comments:1 year fu with PSA [facility] 07-15-2022 Evaluation note* Encounter Date Diagnosis Assessment [...] the office if pain persists or worsens. [employer] Other 07-09-2022 Evaluation note* Encounter Date Diagnosis [...] (suspected) exposure to covid-19 (ICD-10 - Z20.822) [employer] Other 04-11-2022 Miscellaneous Notes* Telephone Encounter - Dora Khanna RN - 12/01/2021 1:53 PM EDT Please review and sign if agreeable. Dora Khanna RN [facility]* Encounter Date Diagnosis Assessment Notes [...] the office if pain persists or worsens. [employer] Other 10-23-2021 Evaluation note* Encounter Date Diagnosis [...] Patient care instructions given in writting by [employer] [facility] document [employer] Other 10-01-2021 Evaluation note* Encounter Date Diagnosis [...] Patient care instructions given in writting by [employer] [facility] document. [employer] Other Evaluation + Plan note Future Appointments Appointment Date:03/12/2023 08:15:00 AM Scheduled Provider:Bernardo PHAN MD Location:[facility] Appointment Type:URO Office Visit Diagnostic Tests Pending * PSA Total 03/09/22 [facility] evalbvwgoj + Plan note Future Appointments Appointment Date:03/16/2025 08:15:00 AM Scheduled Provider:Bernardo PHAN MD Location:[facility] Appointment Type:URO Office Visit Diagnostic Tests Pending * PSA Total 01/21/25 [facility] noteNo InformationNort [employer] Other Evaluation noteNo assessment information available [facility] Work Phone: Evaluation note* Diagnosis History of prostate cancer- Primary Personal history of malignant neoplasm of prostate [facility] Diagnosis Melanoma in situ of forehead (CMS/HCC) documented in this encounter [facility] Work Phone: Evaluation note* Diagnosis Melanoma in situ of forehead (CMS/HCC) Encounter for change or removal of nonsurgical wound dressing documented in this encounter [facility] Work Phone: Evaluation note* Diagnosis History of prostate cancer- Primary Personal history of malignant neoplasm of prostate [facility] Diagnosis Onset Date Resolution Status Right otitis media acute [facility] Work Phone: Evaluation note* Diagnosis Onset Date Resolution Status Right otitis media acute Arteriolonephrosclerosis acu te BPH without urinary obstruction acute Chronic kidney disease, stage II (mild) acute Diabetes mellitus type 2 in nonobese acute Gout acute Renal cyst, right acute Single kidney acute Vitamin D deficiency acute 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 Medical History MELANOMA RIGHT YAZDANISM Medical History TYPE II DIABETES Medical History MELANOMA MID BACK Medical History MELANOMA ON BACK 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 NUMBNESS Surgical History donated a kidney Surgical History kidney stones, stent Surgical History Right knee meniscus Surgical History appendectomy Surgical History MANY SKIN LESIONS Surgical History TONSILECTOMY AND ADNOIDS Hospitalization History see above Hospitalization History HITAL HERNIA [employer] Other Hissync general Narrative - Reported* Type Description Date Medical History diabetes Medical History Prostate cancer Medical History 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 Medical History MELANOMA RIGHT YAZDANISM Medical History TYPE II DIABETES Medical History MELANOMA MID BACK Medical History MELANOMA ON BACK 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 NUMBNESS Medical History HYPERLIPIDEMIA Medical History COVID 07/2023 Surgical History donated a kidney Surgical History kidney stones, stent Surgical History Right knee meniscus Surgical History appendectomy Surgical History MANY SKIN LESIONS Surgical History TONSILECTOMY AND ADNOIDS Hospitalization History see above Hospitalization History [employer] Other Hospital course Narrative No data available for this section [facility] [employer] progress note No data available for this section [facility] Sarai reason for referral (narrative)* Consultation (Routine) - Authorized Specialty Diagnoses / Procedures Referred By La case Referred To Contact Dermatology Diagnoses Melanoma in situ of forehead (CMS/HCC) Procedures Follow Up In Dermatology - Nurse Visit Goyo Coleman MD PhD [address] , [address] [address] Goyo Coleman MD PhD [address] , [address] [address] Referral ID Status Reason Start Date Expiration Date V isits Requested Visits Authorized [id number] Authorized 11/03/2023 11/02/2024 1 1 [facility] Work Phone: Summary Purpose Family History No Family History Records Found Relationship Condition Age at Onset Recorded Date/T hoda brother Unknown Alzheimer's dementia Unknown father Heart disease Unknown Unknown Not Specified Unknown Malignant melanoma Unknown Malignant neoplasm Unknown sister Chronic obstructive pulmonary disease Unk nown Relationship Condition Age at Onset Recorded Date/T hoda brother Unknown Alzheimer's dementia Unknown father Heart disease Unknown Unknown mother Unknown Malignant melanoma Unknown Malignant neoplasm Unknown sister Chronic obstructive pulmonary disease Unk nown Advance Directives No Advanced Directives Records Found Advance Directive Response Recorded Date/ Time Advance Directives No June 10:45am Advance Directive Response Recorded Date/ Time Advance Directives No June 9:45am Chief Complaint and Reason for Visit Chief Complaint Z90.5 N18.2 E11.9 Chief Complaint M54.16 flu vaccine Chief Complaint Chronic Kidney Disea se Chief Complaint congestion, cough Reason for Visit Right otitis media Chief Complaint congestion, cough RENAL 6 month follow up Reason for Visit Right otitis media Arteriolonephrosclerosis BPH without urinary obstruction Chronic kidney disease, 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 Gout Renal cyst, right Single kidney Vitamin D deficiency Additional Source Comments Source Comments (unrecognize d section and content) In the event this informatio n is protected by the Federal Confidentiality of Alcohol and Drug Abuse Patient Records regulations: The Federal rules restrict any use of the information to criminally investigate or prosecute any alcohol or drug abuse patient.[facility] the event this information is protected by the Federal Confidentiality of Alcohol and Drug Abuse Patient Records regulations: The Federal rules restrict any use of the information to criminally investigate or prosecute any alcohol or drug abuse patient.[facility] the event this information is protected by the Federal Confidentiality of Alcohol and Drug Abuse Patient Records regulations: The Federal rules restrict any use of the information to criminally investigate or prosecute any alcohol or drug abuse patient.[facility] the event this information is protected by the Federal Confidentiality of Alcohol and Drug Abuse Patient Records regulations: The Federal rules restrict any use of the information to criminally investigate or prosecute any alcohol or drug abuse patient.[facility] the event this information is protected by the Federal Confidentiality of Alcohol and Drug Abuse Patient Records regulations: The Federal rules restrict any use of the information to criminally investigate or prosecute any alcohol or drug abuse patient.[facility] Center[facility] the event this information is protected by the Federal Confidentiality of Alcohol and Drug Abuse Patient Records regulations: The Federal rules restrict any use of the information to criminally investigate or prosecute any alcohol or drug abuse patient.[facility] Center[facility] the event this information is protected by the Federal Confidentiality of Alcohol and Drug Abuse Patient Records regulations: The Federal rules restrict any use of the information to criminally investigate or prosecute any alcohol or drug abuse patient.[facility] Center[facility] the event this information is protected by the Federal Confidentiality of Alcohol and Drug Abuse Patient Records regulations: The Federal rules restrict any use of the information to criminally investigate or prosecute any alcohol or drug abuse patient.[facility] Center[facility] the event this information is protected by the Federal Confidentiality of Alcohol and Drug Abuse Patient Records regulations: The Federal rules restrict any use of the information to criminally investigate or prosecute any alcohol or drug abuse patient.[facility] Center[facility] the event this information is protected by the Federal Confidentiality of Alcohol and Drug Abuse Patient Records regulations: The Federal rules restrict any use of the information to criminally investigate or prosecute any alcohol or drug abuse patient.[facility] Center[facility] the event this information is protected by the Federal Confidentiality of Alcohol and Drug Abuse Patient Records regulations: The Federal rules restrict any use of the information to criminally investigate or prosecute any alcohol or drug abuse patient.[facility] Reason for Visit (unrecogniz ed section and content) Reason Onset Date Comments Refill Request 12/01/2021 Reason Comments Prostate Cancer Reason Comments MOHS Surgery Right Forehead, MIS Specialty Diagnoses / Procedures Referred By La t Referred To Contact Dermatology Diagnoses Neoplasm of uncertain behavior of skin Julian Hebert, MANAGER CT-VP CORPORATE DEVELOPMENT [address] [place] [address] Referral ID Status Reason Start Date Expiration Date Visits Requested Visits Authorized [id number] Authorized Specialty Services Required 10/12/2023 10/11/2024 1 1 Reason Comments Wound Check 9 days s/p mohs mariia noma right sikhism Specialty Diagnoses / Procedures Referred By Contpatric t Referred To Contact Dermatology Diagnoses Melanoma in situ of forehead (CMS/HCC) Procedures Follow Up In Dermatology - Nurse Visit Goyo Coleman MD PhD [address], [address] [address] Goyo Coleman MD PhD [address], [address] [address] Referral ID Status Reason Start Date Expiration Date V isits Requested Visits Authorized [id number] Authorized 11/03/2023 11/02/2024 1 1 Care Teams (unrecognized sec tion and content) Tip Inserter Relationship Specialty Start Date End Date [place], Natan Susannahtishakaterin [address] [facility] [address] [place] [address] PCP - General Family Practice 04/17/20 Team Status: Active Member Role Status Dates Natan Keyes MD Primary Care Provider Active Team Status: Inactive Member Role Status Dates Natan Keyes MD Primary Care Provider Active Jillian Edwards MD Attending Provider Active Tip Inserter Relationship Specialty Start Date End Date [place], Natan Andersen [address] [facility] [address] [place] [address] PCP - General Family Medicine 04/17/20 Team Status: Inactive Member Role Status Dates Natan Keyes MD Primary Care Provider Active Chuck Hamm MD Attending Provider Active Team Status: Inactive Member Role Status Dates Natan Keyes MD Primary Care Provider Active Goyo Mondragon DO [facility] Attending Provider Active Team Status: Inactive Member Role Status Dates Natan Keyes MD Primary Care Provider Active S tart: September 15, 2023 End: September 15, 2023 Jillian Edwards MD Attending Provider Active Star t: September 15, 2023 End: September 15, 2023 Tip Inserter Relationship Specialty Start Date End Date Natan Keyes MD [address] [facility] [address] [place] [address] PCP - ACO Reach 01/14/23 Natan Keyes MD [address] [facility] [address] [place] [address] PCP - General Family Medicine 02/25/23 Tip Inserter Relationship Specialty Start Date End Date Natan Keyes MD [address] [facility] [address] [place] [address] PCP - General Family Medicine 04/17/20 Team Status: Inactive Member Role Status Dates Natan Keyes MD Primary Care Provider Active S tart: January 24, 2024 End: January 24, 2024 Sallie Ball APRN Attending Provider Active Start: January 24, 2024 End: January 24, 2024 Team Status: Active Member Role Status Dates Natan Keyes MD Primary Care Provider Active S tart: March 06, 2024 Jillian Edwards MD Attending Provider Active Star t: March 06, 2024 Team Status: Inactive Member Role Status Dates Natan Keyes MD Primary Care Provider Active S tart: March 15, 2024 End: March 15, 2024 Jillian Edwards MD Attending Provider Active Star t: March 15, 2024 End: March 15, 2024 (unrecognized sect ion and content) No Status Records FoundNo Status Records FoundNo Status Records FoundNo Status Records FoundNo Status Records FoundNo Status Records Found INFORMATION SOURCE (unrecogn ized section and content) DATE CREATED AUTHOR [facility]/16/2022 [facility] DATE CREATED AUTHOR AUTHOR'S ORGANIZ ATION 10/01/2023 [facility] DATE CREATED AUTHOR AUTHOR'S ORGANIZ ATION 11/18/2023 [facility] DATE CREATED AUTHOR AUTHOR'S ORGANIZ ATION 01/07/2024 [facility] DATE CREATED AUTHOR AUTHOR'S ORGANIZ ATION 03/11/2024 [facility] DATE CREATED AUTHOR AUTHOR'S ORGANIZ ATION 04/18/2024 [facility] EPIC Goals (unrecognized section and content) Goals may [...] BE BASED ON THE PRIMARY CLINICAL RECORDS. [facility]. provides no warranty or guarantee of the accuracy or completeness of information in this document.
[2024-04-18 13:44] LABS: Basophils Percent Auto 0.5 % (0.2-2.0); Eosinophils Absolute Auto 0.3 10^3/uL (0.0-0.7); Eosinophils Percent Auto 2.9 % (0.9-7.0); Hematocrit 42.9 % (42.0-54.0); Hemoglobin 14.5 g/dL (14.0-18.0); Immature Granulocytes Abs Auto 0.08 10^3/uL (0.00-0.03); Immature Granulocytes Pct Auto 0.9 % (0.0-0.5); Lymphocytes Absolute Auto 1.4 10^3/uL (1.2-3.8); Lymphocytes Percent Auto 16.6 % (20.5-60.0); Mean Corpuscular HGB Conc 33.8 g/dL (29.9-35.2); Mean Corpuscular Hemoglobin 30.8 pg (25.9-34.0); Mean Corpuscular Volume 91.1 fL (80.0-94.0); Mean Platelet Volume 10.6 fL (9.5-13.5); Monocytes Absolute Auto 0.7 10^3/uL (0.3-0.8); Neutrophils Absolute Auto 6.1 10^3/uL (1.4-6.5); Neutrophils Percent Auto 71.1 % (43.0-75.0); Platelet Count 187 10^3/uL (150-450); Red Blood Count 4.71 10^6/uL (4.70-6.10); Red Cell Distribution Width 12.2 % (11.0-15.0); White Blood Count 8.6 10^3/uL (4.0-11.0)
== END 2024-04-18 13:21 | disposition home or self-care (01) ==
LOC: LAB 13:23
PROVIDERS: PCP Family Medicine
DX: Z01.812 Encounter for preprocedural laboratory examination (principal); H02.102 Unspecified ectropion of right lower eyelid; H02.105 Unspecified ectropion of left lower eyelid
CPT/HCPCS: 36415; 85025

== ENCOUNTER 2024-08-24 13:00 | Outpatient (OUT) | payer MEDICARE, OTHER, SELFPAY ==
--- NOTE | 2024-08-24 13:03 | MR_ITS ---
The [address] [address] Patient Name: ROCIO PANG MRN: [facility]:[id number] date: 1945 Sex: M Assigned Patient Location: MRI Current Patient Location: MRI Accession/Order Number: [id number] Exam Date: 08/24/2024 13:10 Report Date: 08/24/2024 16:45 At the request of: NATAN KEYES Procedure: MR head/brain wo con EXAM: MR head/brain wo con HISTORY: Abnormal CT Of Brain COMPARISON: None. TECHNIQUE: MRI of the brain was performed without contrast. FINDINGS: There is no restricted diffusion to suggest acute infarct. There is no midline shift, mass effect, or abnormal extraaxial fluid collections. There is moderate cerebral volume loss. Multiple nonspecific scattered foci of T2/FLAIR signal abnormality are identified in the subcortical and periventricular white matter, likely reflect chronic microvascular ischemic changes. The major intracranial flow voids are visualized. The cerebellar tonsils are normal in position. The orbits are unremarkable. There is status post right lens replacement. The paranasal sinuses show no air-fluid level. The mastoid air cells are clear. The calvarium and extracranial soft tissues are unremarkable. MR/MR head/brain wo con IMPRESSION: No acute intracranial abnormality. 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 Electronically authenticated by: VICK PECK Date: 08/24/2024 16:45
== END 2024-08-24 13:01 | disposition home or self-care (01) ==
LOC: MRI 13:00
PROVIDERS: PCP Family Medicine; Visit Provider Family Medicine
DX: R09.89 Other specified symptoms and signs involving the circulatory and respiratory systems (principal)
CPT/HCPCS: 70551

== ENCOUNTER 2025-01-01 11:35 | Outpatient (OUT) | payer MEDICARE, OTHER, SELFPAY ==
[2025-01-01 13:06] LABS: Prostate Specific Antigen Dx 0.26 ng/mL (<=4.00)
== END 2025-01-01 11:36 | disposition home or self-care (01) ==
PROVIDERS: PCP Family Medicine; Visit Provider Radiology Radiation Oncology
DX: Z85.46 Personal history of malignant neoplasm of prostate (principal)
CPT/HCPCS: 36415; 84153

== ENCOUNTER 2025-03-02 04:45 | Emergency (ER) | payer MEDICARE, OTHER, SELFPAY ==
--- OUTSIDE RECORDS SUMMARY | 2025-02-22 10:00 | XMS_ITS | Encounter Summary ---
Author Organization [facility] Address [address] [place] [address] Care Team Providers Care Machine Fur Cleaner Name Role Phone Larisa Whalen MD Unavailable Larisa Whalen MD Primary Care Provider [phone] Reason for Visit * Rehabilitation - Outpatient (Routine) - Authorized Specialty Diagnoses / Procedures Referred By La case Referred To Contact Physical Therapy Diagnoses Neck pain Procedures ID OFFICE/OUTPATIENT NEW HIGH MDM 60 MINUTES Danya Chowdhury, PA [address] [facility] [address] [place] [address] Phone: tel: fax: Wilbert Joseph, PT [address] [facility] [address] [place] [address] Phone: tel: fax: Referral ID Status Reason Start Date Expiration Date Visits Requested Visits Authorized [id number] Authorized Specialty Services Required 02/13/2025 08/22/2025 10 10 Encounter Details Date Type Department Care Team (Late st Contact Info) Description 02/22/2025 10:00 AM EDT Evaluation [facility] [address] [facility] [address] [place] [address] Wilbert Joseph, PT [address] [facility] [address] [place] [address] Pain, neck (Primary Dx); Cervical paraspinal muscle spasm Social History Tobacco Use Types Packs/Day Years Used Date Smoking Tobacco: Never Passive Smoke Exposure: Never Smokeless Tobacco: Never Alcohol Use Standard Drinks/Week Comments Never 0 (1 standard drink = 0.6 oz pur e alcohol) PHQ-2 Answer Date Recorded Patient Health Questionnaire-2 Score 0 11/28/2024 Sex and Gender Information Value Date Recorded Sex Assigned at Male 03/19/2023 5:57 PM EDT Legal Sex Male 7:25 PM EDT Gender Identity Not on file Sexual Orientation Straight 03/19/2023 5: 57 PM EDT documented as of this encounter Progress Notes * Wilbert Joseph, PT - 02/22/2025 10:00 AM EDT Images from the original note were not included. Physical Therapy Evaluation Visit Patient Name: Ritchie Zeng Today's Date: 02/22/2025 Encounter Diagnoses Name Primary? Pain, neck Yes Cervical paraspinal muscle spasm Visit number: 1 Timed Code Treatment Minutes: 50 minutes Total Treatment Time: 50 minutes Time In: 1000 Time Out: 1050 History: Pt. Presents to PT with c/c of right neck pain which started a month ago. No AYAD. Intermittent N/T down right UE. Difficulty turning his head. 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 Having increase pain while lifting objects overhead. Precautions: universal Subjective Pain: 3/10 today; worst 10/10 Objective: PT Evaluation (02/22/25) Cervical AROM: flexion normal, extension 10 deg, rotation right 25 deg, left 35 deg, SB 20 deg, bilateral Flexibility: moderate right upper trapezius muscle tightness Strength: scapular 4-/5 Palpation: TTP right upper trapezius with trigger points in upper trapezius Treatment: PT evaluation (20 minutes) Education: HEP education with demonstration, Educated on Eval Findings and POC Manual Therapy: (16 minutes) supine cervical distraction, UT str. Passive ROM, Joint mobilization, Soft Tissue Mobilization, Myofascial Release, Muscle Energy Technique, Neural Mobilization, Myofascial Cupping, Dry Needling, IASTM, and Scar mobilization Therapeutic Exercise: (5 minutes) exercises in grid; Strength, Endurance, Flexibility, ROM, HEP, Neural Mobilization, Power, and Core Stability Therapeutic Activity: Exercises to improve dynamic activities, functional tasks, functional mobility to return to prior activity level Neuromuscular re-education: Balance Training, Muscle Facilitation, Dynamic Stability, Core Stabilization, and Blood Flow Restriction Training (BFRT) Modalities: (15 minutes) sitting: IFC with MHP to cervical spine on right; Heat, Ice, Electrical Stimulation, Ultrasound, Cervical Mechanical Traction, Lumbar Mechanical Traction, Iontophoresis, and Fluidotherapy Assessment: Pt. Has participated in 1 PT session with start of POC on 02/22/25 for right neck pain. Pt. Will benefit from skilled PT services. Outcome Measure: in chart Short Term Goal: To be met in 2 weeks Goal 1: Pt to be instructed in home exercise program. [facility]cc Goals: To be met in 10 weeks Goal 1: Pt to report independence and compliance with home program. Goal 2: Pt. Will report of 0/10 right neck pain while turning head and performing daily tasks to help improve his quality of life. Goal 3: Pt. Will demonstrate normal right upper trapezius muscle flexibility to help decrease pain and improve his functional mobility. Goal 4: Pt. Will demonstrate 5/5 scapular strength to help decrease pain to improve his quality of life. Goal 5: Pt. Will demonstrate normal cervical ROM grossly in all planes to help improve his quality of life. Pt will benefit from skilled PT for 1-3x/week from 02/22/25 to 05/03/25 to address the above impairments. I hereby deem this POC medically necessary. Please sign below. Date: Cosigned by DESTINI Arredondo at 02/22/2025 1:03 PM EDT documented in this encounter Plan of Treatment Upcoming Encounters Date Type Department Care Team (Late st Contact Info) Description 03/05/2025 1:30 PM EDT Treatment [facility] [address] [address] aFbricio Francois, LOCKSTITCHER 03/06/2025 3:30 PM EDT Office Visit [facility] [address] [facility] [address] [place] [address] Larisa Whalen MD [address] [facility] [address] [place] [address] 03/08/2025 10:30 AM EDT Treatment [facility] [address] [facility] [address] [place] [address] Fabricio Francois, LOCKSTITCHER 03/12/2025 10:30 AM EDT Treatment [facility] [address] [facility] [address] [place] [address] Charly Hannah, LOCKSTITCHER 03/15/2025 11:30 AM EDT Treatment [facility] [address] [facility] [address] [place] [address] Charly Hannah, LOCKSTITCHER 03/20/2025 1:00 PM EDT Treatment [facility] [address] [facility] [address] [place] [address] Fabricio Francois, LOCKSTITCHER documented as of this encounter Visit Diagnoses Diagnosis Pain, neck- Primary Cervical paraspinal muscle spasm Spasm of muscle documented in this encounter Care Teams Machine Fur Cleaner Relationship Specialty Start Date End Date Larisa Whalen MD [address] [facility] [address] [place] [address] PCP - ACO Reach 01/14/23 Larisa Whalen MD [address] [facility] [address] [place] [address] PCP - General Family Medicine 02/25/23 documented as of this encounter
--- OUTSIDE RECORDS SUMMARY | 2025-02-28 11:00 | XMS_ITS | Encounter Summary ---
Author Organization [facility] Address [address] [place] [address] Care Team Providers Care Front Desk Person Name Role Phone Larisa Whalen MD Unavailable Larisa Whalen MD Primary Care Provider [phone] Reason for Visit * Rehabilitation - Outpatient (Routine) - Authorized Specialty Diagnoses / Procedures Referred By La case Referred To Contact Physical Therapy Diagnoses Neck pain Procedures [place] OFFICE/OUTPATIENT [facility] MDM 60 MINUTES Danya Chowdhury, PA [address] [facility] [address] [place] [address] Phone: tel: fax: Wilbert Joseph, PT [address] [place] [address] Phone: tel: fax: Referral ID Status Reason Start Date Expiration Date Visits Requested Visits Authorized [id number] Authorized Specialty Services Required 02/13/2025 08/22/2025 10 10 Encounter Details Date Type Department Care Team (Late st Contact Info) Description 02/28/2025 11:00 AM EDT Treatment [facility] [address] [facility] [address] [place] [address] Fabricio Francois PTA Pain, neck (Primary Dx); Cervical paraspinal muscle [...] as of this encounter Progress Notes * Fabricio Francois, CATERING AND EVENTS MANAGER - 02/28/2025 11:00 AM EDT Images from the original note were not included. Physical Therapy Treatment Visit Patient Name: Ritchie Zeng Today's Date: 02/28/2025 Encounter Diagnoses Name Primary? Pain, neck Yes Cervical paraspinal muscle spasm Visit number: 2 Timed Code Treatment Minutes: 53 minutes Total Treatment Time: 53 minutes Time In: 1125 Time Out: 1220 History: Pt. Presents to PT with c/c of right neck pain which started a month ago. No AYAD. Intermittent N/T down right UE. Difficulty turning his head. 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 Having increase pain while lifting objects overhead. Precautions: universal Subjective Neck is sore this AM along Left side. 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 He stopped and currently back is about a 3/10. Pain: 3/10 today; worst 10/10 Objective: PT Evaluation (02/22/25) Cervical AROM: flexion normal, extension 10 deg, rotation right 25 deg, left 35 deg, SB 20 deg, bilateral Flexibility: moderate right upper trapezius muscle tightness Strength: scapular 4-/5 Palpation: TTP right upper trapezius with trigger points in upper trapezius Treatment: Education: HEP education with demonstration, Educated on Eval Findings and POC Manual Therapy: (23 minutes) supine cervical distraction, UT str, STM/TPR to anterior neck musculature and proximal UT. Passive ROM, Joint mobilization, Soft Tissue Mobilization, Myofascial Release, Muscle Energy Technique, Neural Mobilization, Myofascial Cupping, Dry Needling, IASTM, and Scar mobilization Therapeutic Exercise: (15 minutes) Instructed in exercises to improve chest wall and cervical mobility. exercises in grid; Strength, Endurance, Flexibility, ROM, HEP, Neural Mobilization, Power, and Core Stability Therapeutic Activity: Exercises to improve dynamic activities, functional tasks, functional mobility to return to prior activity level Neuromuscular re-education: Balance Training, Muscle Facilitation, Dynamic Stability, Core Stabilization, and Blood Flow Restriction Training (BFRT) Modalities: (15 minutes) supine: IFC with MHP to cervical spine and a MHP to lower back for recent flair up; Heat, Ice, Electrical Stimulation, Ultrasound, Cervical Mechanical Traction, Lumbar Mechanical Traction, Iontophoresis, and Fluidotherapy Assessment: Pt. Has participated in 2 PT session with start of POC on 02/22/25 for right neck pain. Focused on Soft tissue relaxation and encouraged Active ROM in an unloaded position for improved tolerance. Cervical ROM is severely limited in all motions. Pt. Will benefit from skilled PT services. Outcome Measure: in chart Short Term Goal: To be met in 2 weeks Goal 1: Pt to be instructed in home exercise program. Residential Electrician Goals: To be met in 10 weeks [...] necessary. Please sign below. Date: Cosigned by Wilbert Joseph PT at 02/28/2025 2:06 PM EDT documented in this encounter Plan of Treatment Upcoming Encounters Date Type Department Care Team (Late st Contact Info) Description 03/05/2025 1:30 PM EDT Treatment [facility] [address] [place] [address] Fabricio Francois, CATERING AND EVENTS MANAGER 03/06/2025 3:30 PM EDT Office Visit [facility] [address] [place] [address] Larisa Whalen MD [address] [place] [address] 03/08/2025 10:30 AM EDT Treatment [facility] [address] [place] [address] Fabricio Francois, CATERING AND EVENTS MANAGER 03/12/2025 10:30 AM EDT Treatment [facility] [address] [place] [address] Charly Hannah, CATERING AND EVENTS MANAGER 03/15/2025 11:30 AM EDT Treatment [facility] [address] [place] [address] Charly Hannah, CATERING AND EVENTS MANAGER 03/20/2025 1:00 PM EDT Treatment [facility] [address] [place] [address] Fabricio Francois, CATERING AND EVENTS MANAGER documented as of this encounter Visit Diagnoses Diagnosis Pain, neck- Primary Cervical paraspinal muscle spasm Spasm of muscle documented in this encounter Care Teams Front Desk Person Relationship Specialty Start Date End Date Larisa Whalen MD [address] [place] [address] PCP - ACO Reach 01/14/23 Larisa Whalen MD [address] [place] [address] PCP - General Family Medicine 02/25/23 documented as of this encounter
--- OUTSIDE RECORDS SUMMARY | 2025-03-02 05:03 | XMS_ITS | Encounter Summary ---
Author Organization [facility] Address [address] [facility] [place] [address] Care Team Providers Care Head Chef Name Role Phone Larisa Whalen MD Unavailable Larisa Whalen MD Primary Care Provider [phone] Encounter Details Date Type Department Care Team (Late Contact Info) Description 09/18/2024 Abstract [facility] [address] [facility] [address] [place] [address] Larisa Whalen MD [address] [place] [address] Social History Tobacco Use Types Packs/Day Years Used Date Smoking Tobacco: Never Passive Smoke Exposure: Never Smokeless Tobacco: Never Alcohol Use Standard Drinks/Week Comments Never 0 (1 standard drink = 0.6 oz pur e alcohol) PHQ-2 Answer Date Recorded Patient Health Questionnaire-2 Score 0 08/14/2024 Sex and Gender Information Value Date Recorded Sex Assigned at Male 03/19/2023 5:57 PM EDT Legal Sex Male 7:25 PM EDT Gender Identity Not on file Sexual Orientation Straight 03/19/2023 5: 57 PM EDT documented as of this encounter Plan of Treatment Upcoming Encounters Date Type Department Care Team (Late Contact Info) Description 03/05/2025 1:30 PM EDT Treatment [facility] [address] [place] [address] Fabricio Francois PTA 03/06/2025 3:30 PM EDT Office Visit [facility] [address] [place] [address] Larisa Whalen MD [address] [place] [address] 03/08/2025 10:30 AM EDT Treatment [facility] [address] [place] [address] Fabricio Francois, TOBACCO SAMPLE PULLER 03/12/2025 10:30 AM EDT Treatment [facility] [address] [place] [address] Camden Charly, TOBACCO SAMPLE PULLER 03/15/2025 11:30 AM EDT Treatment [facility] [address] [place] [address] Charly Hannah, TOBACCO SAMPLE PULLER 03/20/2025 1:00 PM EDT Treatment [facility] [address] [facility] [address] [place] [address] Fabricio Francois, TOBACCO SAMPLE PULLER documented as of this encounter Visit Diagnoses Not on filedocumented in this encounter Care Teams Head Chef Relationship Specialty Start Date End Date Larisa Whalen MD [address] [place] [address] PCP - ACO Reach 01/14/23 Larisa Whalen MD [address] [place] [address] PCP - General Family Medicine 02/25/23 documented as of this encounter
--- OUTSIDE RECORDS SUMMARY | 2025-03-02 05:03 | XMS_ITS | Encounter Summary ---
Author Organization [facility] Address [address] [place] [address] Care Team Providers Care Flux Tube Attendant Name Role Phone Larisa Whalen MD Unavailable Larisa Whalen MD Primary Care Provider [phone] Encounter Details Date Type Department Care Team (Late Contact Info) Description 04/02/2023 Orders Only [facility] [address] [place] [address] Merrill Curtis DPM [address] [facility] 5 [place] [address] Social History Tobacco Use Types Packs/Day Years Used Date Smoking Tobacco: Never Passive Smoke Exposure: Never Smokeless Tobacco: Never Alcohol Use Standard Drinks/Week Comments Never 0 (1 standard drink = 0.6 oz pur e alcohol) Sex and Gender Information Value Date Recorded [...] CI PT [address] [place] [address] Fabricio Francois PTA 03/06/2025 3:30 PM EDT Office Visit [facility] [address] [place] [address] Larisa Whalen MD [address] [place] [address] 03/08/2025 10:30 AM EDT Treatment [facility] [address] [place] [address] DanaChristian nullall, CLINICAL NURSE MANAGER 03/12/2025 10:30 AM EDT Treatment [facility] [address] [place] [address] Charly Hannah, CLINICAL NURSE MANAGER 03/15/2025 11:30 AM EDT Treatment [facility] [address] [place] [address] Charly Hannah, CLINICAL NURSE MANAGER 03/20/2025 1:00 PM EDT Treatment [facility] [address] [place] [address] Fabricio Francois, CLINICAL NURSE MANAGER documented as of this encounter Procedures Procedure Name Priority Date/Time Associated Diagnosis Comments US FOOT LEFT Routine 04/01/2023 11:08 AM EDT US FOOT LEFT Routine 04/01/2023 11:07 AM EDT documented in this encounter Results * US foot left (04/01/2023 11:08 AM EDT) Anatomical Region Laterality Modality Lower Extremities, Foot Left Ultrasou nd us Merrill Curtis DPM IMG US PROCEDURES Final Res ult * US foot left (04/01/2023 11:07 AM EDT) Anatomical Region Laterality Modality Lower Extremities, Foot Left Ultrasou nd us Merrill Curtis DPM IMG US PROCEDURES Final Res ult documented in this encounter Visit Diagnoses Not on filedocumented in this encounter Care Teams Flux Tube Attendant Relationship Specialty Start Date End Date Larisa Whalen MD [address] [place] [address] PCP - ACO Reach 01/14/23 Larisa Whalen MD [address] [place] [address] [address] [place] [address] PCP - General Family Medicine 02/25/23 documented as of this encounter
--- OUTSIDE RECORDS SUMMARY | 2025-03-02 05:03 | XMS_ITS | Encounter Summary ---
Author Organization [facility] Address [address] [facility] [place] [address] Care Team Providers Care Molecular Biologist Name Role Phone Larisa Whalen MD Unavailable Larisa Whalen MD Primary Care Provider [phone] Encounter Details Date Type Department Care Team (Late Contact Info) Description 02/26/2025 Abstract [facility] [address] [facility] [address] [place] [address] Larisa Whalen MD [address] [place] [address] Social History Tobacco Use Types Packs/Day Years [...] CI PT [address] [place] [address] Fabricio Francois PTA 03/06/2025 3:30 PM EDT Office Visit [facility] [address] [place] [address] Larisa Whalen MD [address] [place] [address] 03/08/2025 10:30 AM EDT Treatment [facility] [address] [place] [address] Fabricio Francois, ASBESTOS CLOTH INSPECTOR 03/12/2025 10:30 AM EDT Treatment [facility] [address] [place] [address] Camden Charly, ASBESTOS CLOTH INSPECTOR 03/15/2025 11:30 AM EDT Treatment [facility] [address] [place] [address] Charly Hannah, ASBESTOS CLOTH INSPECTOR 03/20/2025 1:00 PM EDT Treatment [facility] [address] [facility] [address] [place] [address] Fabricio Francois, ASBESTOS CLOTH INSPECTOR documented as of this encounter Visit Diagnoses Not on filedocumented in this encounter Care Teams Molecular Biologist Relationship Specialty Start Date End Date Larisa Whalen MD [address] [place] [address] PCP - ACO Reach 01/14/23 Larisa Whalen MD [address] [place] [address] PCP - General Family Medicine 02/25/23 documented as of this encounter
--- OUTSIDE RECORDS SUMMARY | 2025-03-02 05:03 | XMS_ITS | Encounter Summary ---
Author Organization [facility] Address [address] [facility] [place] [address] Care Team Providers Care Deputy Of Counter Intelligence Name Role Phone Larisa Whalen MD Unavailable Larisa Whalen MD Primary Care Provider [phone] Encounter Details Date Type Department Care Team (Late Contact Info) Description 07/08/2023 Orders Only [facility] [address] [place] [address] Larisa Whalen MD [address] [place] [address] Social History Tobacco Use Types Packs/Day Years [...] CI PT [address] [place] [address] Fabricio Francois PTA 03/06/2025 3:30 PM EDT Office Visit [facility] [address] [place] [address] Larisa Whalen MD [address] [place] [address] 03/08/2025 10:30 AM EDT Treatment [facility] [address] [place] [address] Fabricio Francois, SYSTEMS ADMIN 03/12/2025 10:30 AM EDT Treatment [facility] [address] [place] [address] Charly Hannah, SYSTEMS ADMIN 03/15/2025 11:30 AM EDT Treatment [facility] [address] [place] [address] Charly Hannah, SYSTEMS ADMIN 03/20/2025 1:00 PM EDT Treatment [facility] [address] [place] [address] Fabricio Francois, SYSTEMS ADMIN documented as of this encounter Procedures Procedure Name Priority Date/Time Associated Diagnosis Comments DIABETIC RETINOPATHY SCREENING - OU - BOTH EYES Routine 11/16/2022 9:58 AM EDT documented in this encounter Results * Diabetic Retinopathy Screening - OU - Both Eyes (11/16/2022 9:58 AM EDT) Anatomical Region Laterality Modality Head Other Narrative 11/16/2022 9:58 AM EDT normal Larisa Whalen MD OPHTH PHOTOGRAPHY Edited Result - Final documented in this encounter Visit Diagnoses Not on filedocumented in this encounter Care Teams Deputy Of Counter Intelligence Relationship Specialty Start Date End Date Larisa Whalen MD [address] [place] [address] PCP - ACO Reach 01/14/23 Larisa Whalen MD [address] [place] [address] PCP - General Family Medicine 02/25/23 documented as of this encounter
--- OUTSIDE RECORDS SUMMARY | 2025-03-02 05:03 | XMS_ITS | Encounter Summary ---
Author Organization [facility] Address [address] [place] [address] Care Team Providers Care Motor Vehicle Lecturer Name Role Phone Larisa Whalen MD Unavailable Larisa Whalen MD Primary Care Provider [phone] Encounter Details Date Type Department Care Team (Late st Contact Info) Description 05/28/2023 Abstract [facility] [address] [facility] [address] [place] [address] Yas Proctor, FIORELLA [address] [facility] 120 [place] [address] Social History Tobacco Use Types Packs/Day Years [...] CI PT [address] [place] [address] Fabricio Francois PTA 03/06/2025 3:30 PM EDT Office Visit [facility] [address] [place] [address] Larisa Whalen MD [address] [place] [address] 03/08/2025 10:30 AM EDT Treatment [facility] [address] [place] [address] Fabricio Francois, LUNCHROOM WORKER 03/12/2025 10:30 AM EDT Treatment [facility] [address] [place] [address] Charly Hannah, LUNCHROOM WORKER 03/15/2025 11:30 AM EDT Treatment [facility] [address] [place] [address] Charly Hannah, LUNCHROOM WORKER 03/20/2025 1:00 PM EDT Treatment [facility] [address] [place] [address] Fabricio Francois, LUNCHROOM WORKER documented as of this encounter Visit Diagnoses Not on filedocumented in this encounter Care Teams Motor Vehicle Lecturer Relationship Specialty Start Date End Date Larisa Whalen MD [address] [place] [address] PCP - ACO Reach 01/14/23 Larisa Whalen MD [address] [place] [address] PCP - General Family Medicine 02/25/23 documented as of this encounter
--- OUTSIDE RECORDS SUMMARY | 2025-03-02 05:03 | XMS_ITS | Encounter Summary ---
Author Organization [facility] Address [address] [place] [address] Care Team Providers Care Motor Boss Name Role Phone Larisa Whalen MD Unavailable Larisa Wahlen MD Primary Care Provider [phone] Encounter Details Date Type Department Care Team (Latest Contact Info) Description 02/28/2025 Travel Social History Tobacco Use Types Packs/Day Years [...] CI PT [address] [place] [address] Fabricio Francois PTA 03/06/2025 3:30 PM EDT Office Visit [facility] [address] [place] [address] Larisa Whalen MD [address] [place], [place] [address] 03/08/2025 10:30 AM EDT Treatment [facility] [address] [facility] [address] [place] [address] Fabricio Francois, CUSTOM CAR BUILDER 03/12/2025 10:30 AM EDT Treatment [facility] PT [address] [place] [address] Charly Hannah, CUSTOM CAR BUILDER 03/15/2025 11:30 AM EDT Treatment [facility] PT [address] [facility] [address] [place] [address] Charly Hannah, CUSTOM CAR BUILDER 03/20/2025 1:00 PM EDT Treatment [facility] PT [address] [facility] [address] [place] [address] Fabricio Francois, CUSTOM CAR BUILDER documented as of this encounter Visit Diagnoses Not on filedocumented in this encounter Care Teams Motor Boss Relationship Specialty Start Date End Date Larisa Whalen MD [address] [facility] [address] [place] [address] PCP - ACO Reach 01/14/23 Larisa Whalen MD [address] [facility] [address] [place] [address] PCP - General Family Medicine 02/25/23 documented as of this encounter
--- OUTSIDE RECORDS SUMMARY | 2025-03-02 05:03 | XMS_ITS | Encounter Summary ---
Author Organization [facility] Address [address] [facility] [place] [address] Care Team Providers Care Auto Heater Mechanic Name Role Phone Larisa Whalen MD Unavailable Larisa Whalen MD Primary Care Provider [phone] Encounter Details Date Type Department Care Team (Late Contact Info) Description 01/04/2025 Abstract [facility] [address] [facility] [address] [place] [address] Larisa Whalen MD [address] [place] [address] Social History Tobacco Use Types Packs/Day Years [...] CI PT [address] [place] [address] Fabricio Francois PTA 03/06/2025 3:30 PM EDT Office Visit [facility] [address] [place] [address] Larisa Whalen MD [address] [place] [address] 03/08/2025 10:30 AM EDT Treatment [facility] [address] [place] [address] Fabricio Francois, CCNP 03/12/2025 10:30 AM EDT Treatment [facility] [address] [place] [address] Camden Charly, CCNP 03/15/2025 11:30 AM EDT Treatment [facility] [address] [place] [address] Charly Hannah, CCNP 03/20/2025 1:00 PM EDT Treatment [facility] [address] [facility] [address] [place] [address] Fabricio Francois, CCNP documented as of this encounter Visit Diagnoses Not on filedocumented in this encounter Care Teams Auto Heater Mechanic Relationship Specialty Start Date End Date Larisa Whalen MD [address] [place] [address] PCP - ACO Reach 01/14/23 Larisa Whalen MD [address] [place] [address] PCP - General Family Medicine 02/25/23 documented as of this encounter
--- OUTSIDE RECORDS SUMMARY | 2025-03-02 05:03 | XMS_ITS | Clinical Summary ---
Author Organization [facility] Address [address] [place] [address] Phone Care Team Providers Care Radiology Supervisor Name Role Phone Unavailable Primary Care Provider Unavailabl e Allergies No known active allergies Medications albuterol 90 mcg/actuation inhaler Inhale 2 puffs 4 times a day as needed. 3 Active atorvastatin (Lipitor) 20 mg tablet Take 1 tablet (20 mg) by mouth once daily in the morning. Take before meals. 3 Active metFORMIN (Glucophage) 500 mg tablet Take 1 tablet (500 mg) by mouth 2 times a day. 1 Active olopatadine (Pataday) 0.2 % ophthalmic solution Administer into affected eye(s) once every 24 hours. 3 Active Januvia 100 mg tablet Take 1 tablet (100 mg) by mouth once daily. 2 Active Phospha 250 Neutral tablet Take 1 tablet (250 mg) by mouth 3 times a day. 3 Active Social History Tobacco Use Types Packs/Day Years Used Date Smoking Tobacco: Never Assessed Sex and Gender Information Value Date Recorded Sex Assigned at Not on file Legal Sex Male 2:23 PM EST Gender Identity Not on file Sexual Orientation Not on file Last Filed Vital Signs Vital Sign Reading Time Taken Comments Blood Pressure 150/75 11/03/2023 8:32 AM EDT Pulse 67 11/03/2023 8:32 AM EDT Temperature - - Respiratory Rate - - Oxygen Saturation - - Inhaled Oxygen Concentration - - Weight - - Height - - Body Mass Index - - Plan of Treatment Health Maintenance Due Date Last Done Comments Lipid Panel 1945 Skin Cancer Screening 1945 Yearly Adult Physical 1945 Hepatitis C Screening 10/30/1963 DTaP/Tdap/Td Vaccines (1 - Tdap) 10/30/1967 Zoster Vaccines (1 of 2) 10/30/1995 Pneumococcal Vaccine (2 of 2 - PCV20 or PCV21) 06/20/2020 06/20/2019, 06/24/2017 RSV High Risk: (Elderly (60+) or Population) (1 - 1-dose 75+ series) 2020 COVID-19 Vaccine (4 - 2023- season) 2024 07/16/2021, 11/01/2020, 10/04/2020 Influenza Vaccine (#1) 2025 3, 06/02/2022, 06/11/2021, Additional history exists HIB Vaccines Aged Out No longer eligi ble based on patient's age to complete this topic HPV Vaccines (No Doses Required) Completed Hepatitis A Vaccines Aged Out No long er eligible based on patient's age to complete this topic Hepatitis B Vaccines Aged Out No long er eligible based on patient's age to complete this topic IPV Vaccines Aged Out No longer eligi ble based on patient's age to complete this topic Meningococcal Vaccine Aged Out No danya hai eligible based on patient's age to complete this topic Rotavirus Vaccines Aged Out No longer eligible based on patient's age to complete this topic Insurance MEDICARE PART A AND B GENERIC COMMERCIAL MEDICARE PART A AND B GENERIC COMMERCIAL
--- OUTSIDE RECORDS SUMMARY | 2025-03-02 05:03 | XMS_ITS | Encounter Summary ---
Author Organization [facility] Address [address] [place] [address] Phone Care Team Providers Care Circle Beveler Name Role Phone Unavailable Primary Care Provider Unavailabl e Encounter Details Date Type Department Care Team (Late st Contact Info) Description 11/04/[address] [facility] [address] [id number] Goyo Valladares MD PhD [address] [id number] Social History Tobacco Use Types Packs/Day Years Used Date Smoking Tobacco: Never Assessed Sex and Gender Information Value Date Recorded Sex Assigned at Not on file Legal Sex Male 2:23 PM EST Gender Identity Not on file Sexual Orientation Not on file COVID-19 Exposure Response Date Recorded In the last 10 days, have yo u been in contact with someone who was confirmed or suspected to have Coronavirus/COVID-19? No / Unsure 11/03/2023 8:16 AM EDT documented as of this encounter Plan of Treatment Not on file documented as of this encounter Visit Diagnoses Not on filedocumented in this encounter
--- OUTSIDE RECORDS SUMMARY | 2025-03-02 05:03 | XMS_ITS | Encounter Summary ---
Author Organization [facility] Address [address] [place] [address] Care Team Providers Care Bilingual Teacher Assistant Name Role Phone Larisa Whalen MD Unavailable Larisa Whalen MD Primary Care Provider [phone] Encounter Details Date Type Department Care Team (Late Contact Info) Description 07/06/2023 Abstract [facility] [address] [facility] 110 [place] [address] Larisa Whalen MD 112 [facility] 110 [place] [address] Social History Tobacco Use Types Packs/Day Years [...] CI PT [address] [place] [address] Fabricio Francois PTA 03/06/2025 3:30 PM EDT Office Visit [facility] [address] [facility] [address] [place] [address] Larisa Whalen MD [address] [place] [address] 03/08/2025 10:30 AM EDT Treatment [facility] [address] [place] [address] Fabricio Francois, MANAGER OF LEARNING 03/12/2025 10:30 AM EDT Treatment [facility] [address] [place] [address] Charly Hannah, MANAGER OF LEARNING 03/15/2025 11:30 AM EDT Treatment [facility] [address] [place] [address] Charly Hannah, MANAGER OF LEARNING 03/20/2025 1:00 PM EDT Treatment [facility] [address] [place] [address] Fabricio Francois, MANAGER OF LEARNING documented as of this encounter Visit Diagnoses Not on filedocumented in this encounter Care Teams Bilingual Teacher Assistant Relationship Specialty Start Date End Date Larisa Whalen MD [address] [place] [address] PCP - ACO Reach 01/14/23 Larisa Whalen MD [address] [place] [address] PCP - General Family Medicine 02/25/23 documented as of this encounter
--- OUTSIDE RECORDS SUMMARY | 2025-03-02 05:03 | XMS_ITS | Encounter Summary ---
Author Organization [facility] Address [address] [facility] [place] [address] Care Team Providers Care Global Climate Change Analyst Name Role Phone Larisa Whalen MD Unavailable Larisa Whalen MD Primary Care Provider [phone] Encounter Details Date Type Department Care Team (Late st Contact Info) Description 03/03/2023 Abstract [facility] [address] [facility] [address] [place] [address] Eladio Lau, PT [address] [place] [address] Social History Tobacco Use Types Packs/Day Years Used Date Smoking Tobacco: Never Smokeless Tobacco: Never Tobacco Cessation:Counseling Given: Not Answered Alcohol Use Standard Drinks/Week Comments Never 0 [...] CI PT [address] [place] [address] [place] [address] Fabricio Francois PTA 03/06/2025 3:30 PM EDT Office Visit [facility] [address] [place] [address] [place] [address] Larisa Whalen MD [address] [place] [address] [place] [address] 03/08/2025 10:30 AM EDT Treatment [facility] [address] [place] [address] [place] [address] Fabricio Francois, LONG DISTANCE BILLING OPERATOR 03/12/2025 10:30 AM EDT Treatment [facility] [address] [place] [address] [place] [address] Charly Hannah, LONG DISTANCE BILLING OPERATOR 03/15/2025 11:30 AM EDT Treatment [facility] [address] [place] [address] [place] [address] Charly Hannah, LONG DISTANCE BILLING OPERATOR 03/20/2025 1:00 PM EDT Treatment [facility] [address] [place] [address] [place] [address] Fabricio Francois, LONG DISTANCE BILLING OPERATOR documented as of this encounter Visit Diagnoses Not on filedocumented in this encounter Care Teams Global Climate Change Analyst Relationship Specialty Start Date End Date Larisa Whalen MD [address] [place] [address] [place] [address] PCP - ACO Reach 01/14/23 Larisa Whalen MD [address] [place] [address] [place] [address] PCP - General Family Medicine 02/25/23 documented as of this encounter
--- OUTSIDE RECORDS SUMMARY | 2025-03-02 05:03 | XMS_ITS | Encounter Summary ---
Author Organization [facility] Address [address] [facility] [address] Care Team Providers Care Manager Printing Name Role Phone Larisa Whalen MD Unavailable Larisa Whalen MD Primary Care Provider [phone] Encounter Details Date Type Department Care Team (Late Contact Info) Description 03/01/2023 Abstract [facility] [address] [facility] 110 [place] [address] Larisa Whalen MD [address] [facility] 110 [place] [address] Social History Tobacco Use Types Packs/Day Years Used Date Smoking Tobacco: Never Passive Smoke Exposure: Never Smokeless Tobacco: Never Tobacco Cessation:Counseling Given: [...] CI PT [address] [place] [address] [place] [address] Fabricio Francois PTA 03/06/2025 3:30 PM EDT Office Visit [facility] [address] [place] [address] [place] [address] Larisa Whalen MD [address] [place] [address] [place] [address] 03/08/2025 10:30 AM EDT Treatment [facility] [address] [place] [address] [place] [address] Fabricio Francois, MORTGAGE ORIGINATOR 03/12/2025 10:30 AM EDT Treatment [facility] [address] [place] [address] [place] [address] Camden Charly, MORTGAGE ORIGINATOR 03/15/2025 11:30 AM EDT Treatment [facility] [address] [place] [address] [place] [address] Charly Hannah, MORTGAGE ORIGINATOR 03/20/2025 1:00 PM EDT Treatment [facility] [address] [place] [address] [place] [address] Fabricio Francois, MORTGAGE ORIGINATOR documented as of this encounter Visit Diagnoses Not on filedocumented in this encounter Care Teams Manager Printing Relationship Specialty Start Date End Date Larisa Whalen MD [address] [place] [address] [place] [address] PCP - ACO Reach 01/14/23 Larisa Whalen MD [address] [place] [address] [place] [address] PCP - General Family Medicine 02/25/23 documented as of this encounter
--- OUTSIDE RECORDS SUMMARY | 2025-03-02 05:03 | XMS_ITS | Encounter Summary ---
Author Organization [facility] Address [address] [place] [address] Care Team Providers Care Colon And Rectal Surgeon Name Role Phone Larisa Whalen MD Unavailable Larisa Whalen MD Primary Care Provider [phone] Encounter Details Date Type Department Care Team (Late Contact Info) Description 07/08/2023 Abstract [facility] 112 [facility] 110 [place] [address] Larisa Whalen MD 112 [facility] 110 [place] [address] Social History Tobacco Use Types Packs/Day Years [...] CI PT [address] [place] [address] [place] [address] Fabricio Francois PTA 03/06/2025 3:30 PM EDT Office Visit [facility] [address] [facility] 110 [place] [address] Larisa Whalen MD [address] [place] [address] [place] [address] 03/08/2025 10:30 AM EDT Treatment [facility] [address] [place] [address] [place] [address] Fabricio Francois, GUN NUMBERER 03/12/2025 10:30 AM EDT Treatment [facility] [address] [place] [address] [place] [address] Charly Hannah, GUN NUMBERER 03/15/2025 11:30 AM EDT Treatment [facility] [address] [place] [address] [place] [address] Charly Hannah, GUN NUMBERER 03/20/2025 1:00 PM EDT Treatment [facility] [address] [place] [address] [place] [address] Fabricio Francois, GUN NUMBERER documented as of this encounter Visit Diagnoses Not on filedocumented in this encounter Care Teams Colon And Rectal Surgeon Relationship Specialty Start Date End Date Larisa Whalen MD [address] [place] [address] [place] [address] PCP - ACO Reach 01/14/23 Larisa Whalen MD [address] [place] [address] [place] [address] PCP - General Family Medicine 02/25/23 documented as of this encounter
--- OUTSIDE RECORDS SUMMARY | 2025-03-02 05:03 | XMS_ITS | Encounter Summary ---
Author Organization [facility] Address [address] [facility] [place] [address] Care Team Providers Care Accounting Analyst Name Role Phone Larisa Whalen MD Unavailable Larisa Whalen MD Primary Care Provider [phone] Encounter Details Date Type Department Care Team (Late Contact Info) Description 09/18/2024 Abstract [facility] [address] [facility] 110 [place] [address] Larisa Whalen MD [address] [place] [address] [place] [address] Social History Tobacco Use Types Packs/Day Years [...] CI PT [address] [place] [address] [place] [address] Fabricio Francois PTA 03/06/2025 3:30 PM EDT Office Visit [facility] [address] [place] [address] [place] [address] Larisa Whalen MD [address] [place] [address] [place] [address] 03/08/2025 10:30 AM EDT Treatment [facility] [address] [place] [address] [place] [address] Fabricio Francois, GOLF SALES MANAGER 03/12/2025 10:30 AM EDT Treatment [facility] [address] [place] [address] [place] [address] Camden Charly, GOLF SALES MANAGER 03/15/2025 11:30 AM EDT Treatment [facility] [address] [place] [address] [place] [address] Charly Hannah, GOLF SALES MANAGER 03/20/2025 1:00 PM EDT Treatment [facility] [address] [facility] 170 [place] [address] Fabricio Francois, GOLF SALES MANAGER documented as of this encounter Visit Diagnoses Not on filedocumented in this encounter Care Teams Accounting Analyst Relationship Specialty Start Date End Date Larisa Whalen MD [address] [place] [address] [place] [address] PCP - ACO Reach 01/14/23 Larisa Whalen MD [address] [place] [address] [place] [address] PCP - General Family Medicine 02/25/23 documented as of this encounter
--- OUTSIDE RECORDS SUMMARY | 2025-03-02 05:03 | XMS_ITS | Encounter Summary ---
Author Organization [facility] Address [address] [place] [address] Care Team Providers Care Fermenting Cellar Dropper Name Role Phone Larisa Whalen MD Primary Care Provider [phone] Source Comments In the event this information is protected by the Federal Confidentiality of Alcohol and Drug AbusePatient Records regulations: The Federal rules restrict any use of the information to criminally investigate or prosecute any alcohol or drug abuse patient.[facility] Encounter Details Date Type Department Care Team (Latest Contact Info) Description 03/17/2002 Prob Sum Review Provider, Ccf Social History Tobacco Use Types Packs/Day Years Used Date Smoking Tobacco: Never Assessed Sex and Gender Information Value Date Recorded Sex Assigned at Not on file Legal Sex Male 9:46 AM EST Gender Identity Not on file Sexual Orientation Not on file documented as of this encounter Plan of Treatment Upcoming Encounters Date Type Department Care Team (Late st Contact Info) Description 01/03/2026 10:00 AM EDT Office Visit Radiation Oncology [address] [place], [place] [address] [address] Stanley Leal MD [address] [place] [address] [place] [address] 1year follow up documented as of this encounter Visit Diagnoses Not on filedocumented in this encounter Care Teams Fermenting Cellar Dropper Relationship Specialty Start Date End Date Larisa Whalen MD [address] [address] PCP - General Family Medicine 04/17/20 documented as of this encounter
--- OUTSIDE RECORDS SUMMARY | 2025-03-02 05:03 | XMS_ITS | Encounter Summary ---
Author Organization [facility] Address [address] [place] [address] Care Team Providers Care Drop Forge Operator Name Role Phone Larisa Whalen MD Unavailable Larisa Whalen MD Primary Care Provider [phone] Encounter Details Date Type Department Care Team (Late Contact Info) Description 02/22/2025 Bamboo flowsheet [facility] [address] [facility] 170 [place] [address] Wilbert Joseph, PT [address] [place] [address] [place] [address] Social History Tobacco Use Types Packs/Day Years [...] CI PT [address] [place] [address] [place] [address] Fabricio Francois PTA 03/06/2025 3:30 PM EDT Office Visit [facility] [address] [place] [address] [place] [address] Larisa Whalen MD [address] [place] [address] [place] [address] 03/08/2025 10:30 AM EDT Treatment [facility] [address] [place] [address] [place] [address] Fabricio Francois, DIRECTOR OF CODING 03/12/2025 10:30 AM EDT Treatment [facility] [address] [place] [address] [place] [address] Charly Hannah, DIRECTOR OF CODING 03/15/2025 11:30 AM EDT Treatment [facility] [address] [place] [address] [place] [address] Charly Hannah, DIRECTOR OF CODING 03/20/2025 1:00 PM EDT Treatment [facility] [address] [place] [address] [place] [address] Fabricio Francois, DIRECTOR OF CODING documented as of this encounter Visit Diagnoses Not on filedocumented in this encounter Care Teams Drop Forge Operator Relationship Specialty Start Date End Date Larisa Whalen MD [address] [place] [address] [place] [address] PCP - ACO Reach 01/14/23 Larisa Whalen MD [address] [place] [address] [place] [address] PCP - General Family Medicine 02/25/23 documented as of this encounter
--- OUTSIDE RECORDS SUMMARY | 2025-03-02 05:03 | XMS_ITS | Encounter Summary ---
Author Organization [facility] Address [address] [place] [address] Care Team Providers Care Equine Vet Name Role Phone Larisa Whalen MD Unavailable Larisa Whalen MD Primary Care Provider [phone] Encounter Details Date Type Department Care Team (Late Contact Info) Description 01/31/2025 Orders Only [facility] [address] [place] [address] [place] [address] Transient alteration of awareness; Forgetfulness; Loss of balance Social History Tobacco Use Types Packs/Day Years [...] CI PT [address] [place] [address] [place] [address] Fabricio Francois PTA 03/06/2025 3:30 PM EDT Office Visit [facility] [address] [place] [address] [place] [address] Larisa Whalen MD [address] [place] [address] [place] [address] 03/08/2025 10:30 AM EDT Treatment [facility] [address] [place] [address] [place] [address] Fabricio Francois, REFRIGERATOR REPAIRMAN 03/12/2025 10:30 AM EDT Treatment [facility] [address] [place] [address] [place] [address] Charly Hannah, REFRIGERATOR REPAIRMAN 03/15/2025 11:30 AM EDT Treatment [facility] [address] [place] [address] [place] [address] Charly Hannah, REFRIGERATOR REPAIRMAN 03/20/2025 1:00 PM EDT Treatment [facility] [address] [place] [address] [place] [address] Fabricio Francois, REFRIGERATOR REPAIRMAN documented as of this encounter Visit Diagnoses Diagnosis Transient alteration of awareness Forgetfulness Other general symptoms Loss of balance Abnormality of gait documented in this encounter Care Teams Equine Vet Relationship Specialty Start Date End Date Larisa Whalen MD [address] [place] [address] [place] [address] PCP - ACO Reach 01/14/23 Larisa Whalen MD [address] [place] [address] [place] [address] PCP - General Family Medicine 02/25/23 documented as of this encounter
--- OUTSIDE RECORDS SUMMARY | 2025-03-02 05:03 | XMS_ITS | Encounter Summary ---
Author Organization [facility] Address [address] [place] [address] Care Team Providers Care Residential Treatment Specialist Name Role Phone Larisa Whalen MD Unavailable Larisa Whalen MD Primary Care Provider [phone] Reason for Visit * Reason Comments Med Refill Encounter Details Date Type Department Care Team (Late st Contact Info) Description 02/22/2025 Refill [facility] [address] [place] [address] [place] [address] Larisa Whalen MD [address] [facility] 110 [place] [address] Type 2 diabetes mellitus without complication, without long-term current use of insulin (HCC) Social History Tobacco Use Types Packs/Day Years [...] CI PT [address] [place] [address] [place] [address] Fabricio Francois, ANTISUBMARINE WEAPONS OFFICER 03/06/2025 3:30 PM EDT Office Visit [facility] [address] [place] [address] [place] [address] Larisa Whlaen MD [address] [place] [address] [place] [address] 03/08/2025 10:30 AM EDT Treatment [facility] [address] [place] [address] [place] [address] Fabricio Francois, ANTISUBMARINE WEAPONS OFFICER 03/12/2025 10:30 AM EDT Treatment [facility] [address] [place] [address] [place] [address] Charly Hannah, ANTISUBMARINE WEAPONS OFFICER 03/15/2025 11:30 AM EDT Treatment [facility] [address] [place] [address] [place] [address] Charly Hannah, ANTISUBMARINE WEAPONS OFFICER 03/20/2025 1:00 PM EDT Treatment [facility] [address] [place] [address] [place] [address] Fabricio Francois, ANTISUBMARINE WEAPONS OFFICER documented as of this encounter Visit Diagnoses Diagnosis Type 2 diabetes mellitus without complication, without long-term current use of insulin (HCC) documented in this encounter Care Teams Residential Treatment Specialist Relationship Specialty Start Date End Date Larisa Whalen MD [address] [place] [address] [place] [address] PCP - ACO Reach 01/14/23 Larisa Whalen MD [address] [place] [address] [place] [address] PCP - General Family Medicine 02/25/23 documented as of this encounter
--- OUTSIDE RECORDS SUMMARY | 2025-03-02 05:03 | XMS_ITS | Encounter Summary ---
Author Organization [facility] Address [address] [place] [address] Care Team Providers Care Lock Assembler Name Role Phone Larisa Whalen MD Unavailable Larisa Whalen MD Primary Care Provider [phone] Encounter Details Date Type Department Care Team (Latest Contact Info) Description 02/22/2025 Travel Social History Tobacco Use Types Packs/Day [...] CI PT [address] [place] [address] [place] [address] Fabricio Francois PTA 03/06/2025 3:30 PM EDT Office Visit [facility] [address] [place] [address] [place] [address] Larisa Whalen MD [address] [place] [address] [place], [place] [address] 03/08/2025 10:30 AM EDT Treatment [facility] [address] [facility] [address] [place] [address] Fabricio Francois, ARTIST RELATIONSHIP MANAGER 03/12/2025 10:30 AM EDT Treatment [facility] PT [address] [place] [address] [place] [address] Charly Hannah, ARTIST RELATIONSHIP MANAGER 03/15/2025 11:30 AM EDT Treatment [facility] PT [address] [facility] [address] [place] [address] Charly Hannah, ARTIST RELATIONSHIP MANAGER 03/20/2025 1:00 PM EDT Treatment [facility] PT [address] [facility] [address] [place] [address] Fabricio Francois, ARTIST RELATIONSHIP MANAGER documented as of this encounter Visit Diagnoses Not on filedocumented in this encounter Care Teams Lock Assembler Relationship Specialty Start Date End Date Larisa Whalen MD [address] [facility] [address] [place] [address] PCP - ACO Reach 01/14/23 Larisa Whalen MD [address] [facility] [address] [place] [address] PCP - General Family Medicine 02/25/23 documented as of this encounter
--- OUTSIDE RECORDS SUMMARY | 2025-03-02 05:03 | XMS_ITS | Encounter Summary ---
Author Organization [facility] Address [address] [facility] [place] [place] [address] Care Team Providers Care Freezer Assistant Name Role Phone Larisa Whalen MD Unavailable Larisa Whalen MD Primary Care Provider [phone] Encounter Details Date Type Department Care Team (Late Contact Info) Description 09/18/2024 External Result Encounter [facility] External Department Unsolicited Larisa Whalen MD [address] [place] [address] [place] [address] Social History Tobacco Use Types Packs/Day Years [...] CI PT [address] [place] [place] [address] Fabricio Francois PTA 03/06/2025 3:30 PM EDT Office Visit [facility] [address] [place] [address] [place] [address] Larisa Whalen MD [address] [place] [address] [place] [address] 03/08/2025 10:30 AM EDT Treatment [facility] [address] [place] [address] [place] [address] Alessandro Fabricio, GROCERY PACKER 03/12/2025 10:30 AM EDT Treatment [facility] [address] [place] [address] [place] [address] Charly Hannah, GROCERY PACKER 03/15/2025 11:30 AM EDT Treatment [facility] [address] [place] [address] CamdenRosasCharly, GROCERY PACKER 03/20/2025 1:00 PM EDT Treatment [facility] [address] [place] [address] Fabricio Francois, GROCERY PACKER documented as of this encounter Procedures Procedure Name Priority Date/Time Associated Diagnosis Comments STRESS TEST WITH MYOCARDIAL PERFUSION 09/18/2024 4:04 PM EST documented in this encounter Results * Stress test with myocardial perfusion (09/18/2024 4:04 PM EST) Anatomical Region Laterality Modality Heart Other 09/18/2024 4:04 PM EST Narrative 09/18/2024 4:08 PM EST [facility] [address] Nuclear Medicine Report Signed Patient: Ritchie Zeng MR#: [id number] : 1945 Acct:[id number] Age/Sex: 78 / M ADM Date: 09/18/24 Loc: CT Room: Type: [facility] Attending Dr: Larisa Whalen MD Copies to: MD Larisa Weber MD Ordering Provider: Larisa Whalen MD Date of Service: 09/18/24 NM/NM eliud perf SPECT rest str: R07.89 NUCLEAR MYOCARDIAL PERFUSION DATE OF PROCEDURE: 09/18/2024 PROCEDURE: The patient achieved a workload of 6.4 METs. During the last one minute of exercise, the patient was then injected with 19.4 millicuries of Technetium 99M Sestamibi one minute before the end of the exercise. For rest images the patient was injected with 6.1 millicuries of Technetium 99M Sestamibi. FINDINGS: The raw cine images were reviewed. The post stress and rest perfusion images were reviewed as well as the computer quantification. There was uniform uptake of the radiotracer with no perfusion defects identified. On the gated portion of the study, there was uniform thickening with an overall ejection fraction calculated at 65%. TID score was within normal limits (0.93). CONCLUSION: 1. Gated spect Sestamibi study is within normal limits. 2. Left ventricular function was preserved. Impression dictated by: Irina Ann M.D.09/18/2024 4:06 PM Dictation Location: [place] [address] Transcribed By: [facility] 09/18/24 1606 Dictated By: Irina Ann MD 09/18/24 1604 Signed By: <Electronically signed by Irina Ann MD in OV> 09/18/24 1606 Procedure Note Irina Ann MD - 09/18/2024 [facility] [address] Nuclear Medicine Report Signed Patient: Ritchie Zeng AMR#: [id number] : 6Acct:[id number] Age/Sex: 78 / MADM Date: 09/18/24 Loc: CT Room:Type: [facility] Attending Dr: Larisa Whalen MD Copies to: MD Larisa Weber MD Ordering Provider: Larisa Whalen MD Date of Service: 09/18/24 NM/CHRIST eliud perf SPECT rest str: R07.89 NUCLEAR MYOCARDIAL PERFUSION DATE OF PROCEDURE: 09/18/2024 PROCEDURE: The patient achieved a workload of 6.4 METs. During the last one minuteof exercise, the patient was then injected with 19.4 millicuries of Technetium 99M Sestamibi oneminute before the end of the exercise. For rest images the patient was injected with 6.1 millicuries ofTechnetium 99M Sestamibi. FINDINGS: The raw cine images were reviewed. The post stress and rest perfusionimages were reviewed as well as the computer quantification. There was uniform uptake of theradiotracer with no perfusion defects identified. On the gated portion of the study, there was uniform thickening with anoverall ejection fraction calculated at 65%. TID score was within normal limits (0.93). CONCLUSION: 1. Gated spect Sestamibi study is within normal limits. 2. Left ventricular function was preserved. Impression dictated by: Irina Ann M.D.09/18/2024 4:06 PM Dictation Location: [place] [address] Transcribed By: [facility] 09/18/24 1606 Dictated By: Irina Ann MD 09/18/24 1604 Signed By: <Electronically signed by Irina Ann MD in OV> 09/18/24 1606 Larisa Whalen MD CV STRESS PROCEDURES Final Resul t documented in this encounter Visit Diagnoses Not on filedocumented in this encounter Care Teams Freezer Assistant Relationship Specialty Start Date End Date Larisa Whalen MD [address] [facility] 110 [place] [address] PCP - ACO Reach 01/14/23 Larisa Whalen MD [address] [facility] 110 [place] [address] PCP - General Family Medicine 02/25/23 documented as of this encounter
--- OUTSIDE RECORDS SUMMARY | 2025-03-02 05:03 | XMS_ITS | Encounter Summary ---
Author Organization [facility] Address [address] [place] [address] Care Team Providers Care Game Technician Name Role Phone Larisa Whalen MD Unavailable Larisa Whalen MD Primary Care Provider [phone] Encounter Details Date Type Department Care Team (Late Contact Info) Description 02/22/2025 Plan of Care Documentation [facility] PT [address] [facility] 170 [place] [address] Social History Tobacco Use Types Packs/Day Years [...] CI PT [address] [place] [address] [place] [address] Fabricio Francois PTA 03/06/2025 3:30 PM EDT Office Visit [facility] [address] [place] [address] [place] [address] Larisa Whalen MD [address] [place] [address] [place] [address] 03/08/2025 10:30 AM EDT Treatment [facility] [address] [place] [address] Fabricio Fracnois, MANUAL PLATE FILLER 03/12/2025 10:30 AM EDT Treatment [facility] [address] [place] [address] [place] [address] Charly Hannah, MANUAL PLATE FILLER 03/15/2025 11:30 AM EDT Treatment [facility] [address] [place] [address] [place] [address] Charly Hannah, MANUAL PLATE FILLER 03/20/2025 1:00 PM EDT Treatment [facility] [address] [place] [address] [place] [address] Fabricio Francois, MANUAL PLATE FILLER documented as of this encounter Visit Diagnoses Not on filedocumented in this encounter Care Teams Game Technician Relationship Specialty Start Date End Date Larisa Whalen MD [address] [place] [address] [place] [address] PCP - ACO Reach 01/14/23 Larisa Whalen MD [address] [place] [address] [place] [address] PCP - General Family Medicine 02/25/23 documented as of this encounter
--- OUTSIDE RECORDS SUMMARY | 2025-03-02 05:04 | XMS_ITS | Encounter Summary ---
Author Organization [facility] Address [address] [facility] [place] [address] Care Team Providers Care Cardiac Cath Lab Manager Name Role Phone Larisa Whalen MD Unavailable Larisa Whalen MD Primary Care Provider [phone] Encounter Details Date Type Department Care Team (Late st Contact Info) Description 08/11/2023 Orders Only [facility] [address] [place] [address] A, Unknown Practice [address] [place], [place] [id number] Social History Tobacco Use Types Packs/Day Years [...] CI PT [address] [place] [address] Fabricio Francois PTA 03/06/2025 3:30 PM EDT Office Visit [facility] [address] [place] [address] Larisa Whalen MD [address] [place] [address] 03/08/2025 10:30 AM EDT Treatment [facility] [address] [place] [address] Fabricio Francois, HAND LEATHER TRIMMER 03/12/2025 10:30 AM EDT Treatment [facility] [address] [place] [address] Cam[place] Charly, HAND LEATHER TRIMMER 03/15/2025 11:30 AM EDT Treatment [facility] [address] [place] [address] Charly Hannah, HAND LEATHER TRIMMER 03/20/2025 1:00 PM EDT Treatment [facility] [address] [place] [address] Fabricio Francois, HAND LEATHER TRIMMER documented as of this encounter Procedures Procedure Name Priority Date/Time Associated Diagnosis Comments XR CHEST 1 VIEW Routine 08/11/2023 8:30 AM EST documented in this encounter Results * XR chest 1 view (08/11/2023 8:30 AM EST) Anatomical Region Laterality Modality Chest Radiographic Lucie ging us Unknown Practice A IMG XR PROCEDURES Final Resul t documented in this encounter Visit Diagnoses Not on filedocumented in this encounter Care Teams Cardiac Cath Lab Manager Relationship Specialty Start Date End Date Larisa Whalen MD [address] [facility] [address] [place] [address] PCP - ACO Reach 01/14/23 Larisa Whalen MD [address] [place] [address] PCP - General Family Medicine 02/25/23 documented as of this encounter
--- OUTSIDE RECORDS SUMMARY | 2025-03-02 05:04 | XMS_ITS | Encounter Summary ---
Author Organization [facility] Address [address] [place] [address] Phone Care Team Providers Care Binder Selector Name Role Phone Unavailable Primary Care Provider Unavailabl e Reason for Referral * Consultation (Routine) - Authorized Specialty Diagnoses / Procedures Referred By La case Referred To Contact Dermatology Diagnoses Neoplasm of uncertain behavior of skin Julee Hebert APRN-CNP [address] [facility] [address] [place] [address] Phone: tel: fax: Referral ID Status Reason Start Date Expiration Date Visits Requested Visits Authorized [id number] Authorized Specialty Services Required 10/12/2023 10/11/2024 1 1 Encounter Details Date Type Department Care Team (Latest Contact Info) Description 10/12/2023 Transcribe Orders [address] [place] [address] Julee Hebert APRN-CNP [address] [facility] [address] [place] [address] Neoplasm of uncertain behavior of skin (Primary Dx) Social History Tobacco Use Types Packs/Day Years Used Date Smoking Tobacco: Never Assessed Sex and Gender Information Value Date Recorded Sex Assigned at Not on file Legal Sex Male 2:23 PM EST Gender Identity Not on file Sexual Orientation Not on file documented as of this encounter Plan of Treatment Scheduled Referrals Name Type Priority Associated Diagnoses Order Schedule Referral to Dermatology - Mohs Surgery Outpatient Referral Routine Neoplasm of uncertain behavior of skin Ordered: 10/12/2023 documented as of this encounter Visit Diagnoses Diagnosis Neoplasm of uncertain behavior of skin- Primary documented in this encounter
--- OUTSIDE RECORDS SUMMARY | 2025-03-02 05:04 | XMS_ITS | Encounter Summary ---
Author Organization [facility] Address [address] [place] [address] Care Team Providers Care Coding Compliance Auditor Name Role Phone Larisa Whalen MD Unavailable Larisa Whalen MD Primary Care Provider [phone] Encounter Details Date Type Department Care Team (Late st Contact Info) Description 08/12/2023 Orders Only [facility] [address] [place] [address] A, Unknown Practice [address] [place], [place] [id number] Social History Tobacco Use Types Packs/Day Years [...] CI PT [address] [place] [address] Fabricio Francois PTA 03/06/2025 3:30 PM EDT Office Visit [facility] [address] [place] [address] Larisa Whalen MD [address] [place] [address] 03/08/2025 10:30 AM EDT Treatment [facility] [address] [place] [address] Fabricio Francois, GED PREPARATION TEACHER 03/12/2025 10:30 AM EDT Treatment [facility] [address] [place] [address] Charly Hannah, GED PREPARATION TEACHER 03/15/2025 11:30 AM EDT Treatment [facility] [address] [place] [address] Charly Hannah, GED PREPARATION TEACHER 03/20/2025 1:00 PM EDT Treatment [facility] [address] [place] [address] Fabricio Francois, GED PREPARATION TEACHER documented as of this encounter Procedures Procedure Name Priority Date/Time Associated Diagnosis Comments ELECTROCARDIOGRAM REPORT Routine 023 8:45 AM EST documented in this encounter Results * Electrocardiogram Report (08/11/2023 8:45 AM EST) us Unknown Practice A IN CLINIC/BEDSIDE ORDERABLES Final Result documented in this encounter Visit Diagnoses Not on filedocumented in this encounter Care Teams Coding Compliance Auditor Relationship Specialty Start Date End Date Larisa Whalen MD [address] [facility] [address] [place] [address] PCP - ACO Reach 01/14/23 Larisa Whalen MD [address] [place] [address] PCP - General Family Medicine 02/25/23 documented as of this encounter
--- OUTSIDE RECORDS SUMMARY | 2025-03-02 05:04 | XMS_ITS | Encounter Summary ---
Author Organization [facility] Address [address] [place] [address] Care Team Providers Care Clinical Lab Scientist Name Role Phone Larisa Whalen MD Unavailable Larisa Whalen MD Primary Care Provider [phone] Encounter Details Date Type Department Care Team (Late Contact Info) Description 08/02/2024 Abstract [facility] [address] [facility] [address] [place] [address] Larisa Whalen MD [address] [facility] [address] [place] [address] Social History Tobacco Use Types Packs/Day Years [...] CI PT [address] [place] [address] Fabricio Francois PTA 03/06/2025 3:30 PM EDT Office Visit [facility] [address] [facility] [address] [place] [address] Larisa Whalen MD [address] [place] [address] 03/08/2025 10:30 AM EDT Treatment [facility] [address] [place] [address] Fabricio Francois, PROSTHETIST 03/12/2025 10:30 AM EDT Treatment [facility] [address] [place] [address] Charly Hannah, PROSTHETIST 03/15/2025 11:30 AM EDT Treatment [facility] [address] [place] [address] Charly Hannah, PROSTHETIST 03/20/2025 1:00 PM EDT Treatment [facility] [address] [place] [address] Fabricio Francois, PROSTHETIST documented as of this encounter Visit Diagnoses Not on filedocumented in this encounter Care Teams Clinical Lab Scientist Relationship Specialty Start Date End Date Larisa Whalen MD [address] [place] [address] PCP - ACO Reach 01/14/23 Larisa Whalen MD [address] [place] [address] PCP - General Family Medicine 02/25/23 documented as of this encounter
--- OUTSIDE RECORDS SUMMARY | 2025-03-02 05:04 | XMS_ITS | Clinical Summary ---
Author Organization [facility] Address [address] [place] [address] Care Team Providers Care Batch Plant Supervisor Name Role Phone Larisa Whalen MD Unavailable Larisa Whalen MD Primary Care Provider Allergies Active Allergy Reactions Criticality Noted Date Comments Other 03/18/2023 Other Reaction(s): Unknown Wound Dressing Adhesive Unknown 08/25/2021 Other Reaction(s): Unknown Medications albuterol HFA 90 mcg/act inhaler INHALE 2 PUFFS BY MOUTH 4 TIMES A DAY NEEDED 02/28/20 23 Active baclofen (Lioresal) 10 MG tablet every 8 (eight) hours. Active cholecalciferol (Vitamin D-3) 50 MCG (1999 UT) capsule Take by mouth. Active HYDROcodone-acet aminophen ([place]) 5-325 MG tablet TAKE 1-2 TABLET BY MOUTH THREE TIMES DAILY NEEDED Active K Phos [place]-Sod Phos Di & [place]ayette (Phospha 250 Neutral) 155-852-130 MG tablet Take 1 tablet by mouth in the morning and 1 tablet in the evening and 1 tablet before bedtime. 01/21/20 23 Active triamcinolone (Kenalog) 0.1 % creamIndications :Other atopic dermatitis Apply to affected areas, up to twice a day when flared, do not use one the face, groin, or underarms, 30 day supply 454 g 11 09/27/19 24 Active Alrex 0.2 % suspension ophthalmic suspension Administer 1 drop into both eyes in the morning and 1 drop before bedtime. 01/04/20 24 Active Ascorbic Acid (vitamin C) 100 MG tablet Take 100 mg by mouth Daily Active metFORMIN (Glucophage) 500 MG tabletIndication s:Type 2 diabetes mellitus without complications (HCC) TAKE 1 TABLET (500 MG) BY MOUTH IN THE MORNING AND IN THE EVENING WITH MEALS 180 tablet 4 06/05/20 24 Active KLOR-CON 20 MEQ ER tablet Take 20 mEq by mouth Daily 06/14/20 24 Active SITagliptin (Januvia) 100 MG tabletIndication s:Type 2 diabetes mellitus without complication, without long-term current use of insulin (HCC) Take 1 tablet (100 mg) by mouth in the morning. 100 tablet 4 08/14/20 24 Active atorvastatin (Lipitor) 40 MG tabletIndication s:Type 2 diabetes mellitus with stage 3a chronic kidney disease, without long-term current use of insulin (HCC),Other chest pain Take 1 tablet (40 mg) by mouth Daily 30 tablet 11 08/14/20 24 025 Active aspirin 81 MG EC tabletIndication s:TIA (transient ischemic attack),Subcorti diego microvascular ischemic occlusive disease Take 1 tablet (81 mg) by mouth Daily 09/19/19 25 026 Active Continuous Glucose [employer] (FreeStyle [place] 2 [place]) deviceIndication s:Type 2 diabetes mellitus with chronic kidney disease, with long-term current use of insulin, unspecified CKD stage (HCC) 1 Device Daily 1 each 09/28/19 25 Active allopurinol (Zyloprim) 100 MG tabletIndication s:Acute gout, unspecified cause, unspecified site TAKE 1 TABLET BY MOUTH EVERY DAY 100 tablet 3 11/11/19 25 Active colchicine 0.6 MG tabletIndication s:Great toe pain, right,Hx of gout 2 tabs (1.2mg) x1 then 1 tab (0.6mg) x1 1 hour later. 3 tablet 11 11/24/19 25 Active predniSONE (Deltasone) 10 MG tabletIndication s:Great toe pain, right,Hx of gout 4 tabs daily x2 days, then 3 tabs daily x2 days, then 2 tabs daily x2 days, then 1 tab daily x2 days Do not take with colchicine. Only start if gout flare not controlled with colchicine regimen. 20 tablet 11/24/19 25 Active tamsulosin (Flomax) 0.4 MG 24 hr capsuleIndicatio ns:Benign prostatic hyperplasia with urinary obstruction Take 1 capsule (0.4 mg) by mouth Daily 30 capsule 3 02/14/20 25 Active Continuous Glucose Sensor (FreeStyle Mayito 2 Sensor) miscIndications: Type 2 diabetes mellitus without complication, without long-term current use of insulin (HCC) CHANGE EVERY 2 WEEKS DIRECTED 6 each 3 02/23/20 25 Active Continuous Glucose Sensor (FreeStyle Mayito 2 Sensor) miscIndications: Type 2 diabetes mellitus without complication, without long-term current use of insulin (HCC) CHANGE EVERY 2 WEEKS DIRECTED 2 each 2 09/25/19 25 025 Discontinued Active Problems Problem Noted Date Diagnosed Date Acute low back pain without sciatica 11/28/2024 Assessment & Plan (11/28/2024 1:59 PM EDT): PT referral made Stretching and core exercises advised OTC Tylenol and Ibuprofen Ingrown right big toenail 10/12/2024 Assessment & Plan (11/28/2024 2:09 PM EDT): No drainage F/Up Dr. Curtis Assessment & Plan (10/12/2024 1:46 PM EST): Increase fluids Watch for infection Shortness of breath 09/19/2024 Assessment & Plan (09/19/2024 1:49 PM EST): More new SOB has worsened Does this Eforce and no chest pain, but SOB is improved, since doing more. Works out 5 days a week and has increased work load TIA (transient ischemic attack) 09/19/2024 Assessment & Plan (09/19/2024 1:56 PM EST): Consider Plavix Consider Xarelto Consider Eliquis Abnormal CT of brain 08/14/2024 Assessment & Plan (08/14/2024 10:07 AM EST): MRI needed: Sella contents not visualized Recent TIA sxs: Baby aspirin Better control of sugars Other chest pain 08/14/2024 Assessment & Plan (08/14/2024 10:03 AM EST): Signs and symptoms discussed of [place] Hold off exercise Possible referral to cardiology Medicare annual wellness visit, subsequent 07/05 Assessment & Plan (08/14/2024 9:52 AM EST): Colonoscopy every 10 years or Cologuard every 3 years ages 50-75 Flu Vaccine yearly Pneumovax and Prevnar Mammo yearly for women and PSA yearly for men Labs/Screening yearly to rule out Diabetes, Chronic Kidney disease and liver disease Hepatitis Screen forat risk populations Shingles vaccine after 65 if indicated Tetanus Vaccine every 10 years Lipids yearly under the age of 75 If Smoking history: one time CT scan of chest and Ultrasound of Aorta to screen for Anuerysm Assessment & Plan (07/05/2023 8:28 AM EST): Colonoscopy every 10 years or Cologuard every 3 years ages 50-75 Flu Vaccine yearly Pneumovax and Prevnar Mammo yearly for women and PSA yearly for men Labs/Screening yearly to rule out Diabetes, Chronic Kidney disease and liver disease Hepatitis Screen forat risk populations Shingles vaccine after 65 if indicated Tetanus Vaccine every 10 years Lipids yearly under the age of 75 If Smoking history: one time CT scan of chest and Ultrasound of Aorta to screen for Anuerysm Benign essential hypertension 07/05/2023 Myopathy 06/24/2023 Myalgia 06/02/2023 Chronic pain of left heel 03/23/2023 Assessment & Plan (03/23/2023 3:30 PM EDT): Refer to Merrill Curtis Suspected heel spur Will need Xrays Heel spur, left 03/23/2023 Benign prostatic hyperplasia with urinary obstru ction 03/18/2023 Dysuria 03/18/2023 Flank pain 03/18/2023 Former smoker 03/18/2023 History of renal calculi 03/18/2023 Microscopic hematuria 03/18/2023 Must strain to pass urine 03/18/2023 Nocturia 03/18/2023 Personal history of prostate cancer 03/18/2023 Poor urinary stream 03/18/2023 Prostatitis 03/18/2023 High prostate specific antigen (PSA) 03/18/2023 Malignant neoplasm of prostate 03/18/2023 Assessment & Plan (08/14/2024 9:51 AM EST): F/up with urology and hem/onc Assessment & Plan (07/05/2023 8:27 AM EST): F/U urology and Hem Onc Diabetes mellitus 03/18/2023 Lumbar paraspinal muscle spasm 02/18/2023 Acute left lumbar radiculopathy 02/18/2023 Absent kidney 02/15/2023 Bilateral carotid artery stenosis 02/15/2023 Carotid atherosclerosis, bilateral 02/15/2023 Chronic fatigue 02/15/2023 Constipation 02/15/2023 Chronic kidney disease, stage III (moderate) Dysphagia 02/15/2023 Assessment & Plan (03/23/2023 3:30 PM EDT): Is better Elevated PSA, less than 10 ng/ml 02/15/2023 Acute gout 02/15/2023 Assessment & Plan (11/28/2024 1:59 PM EDT): Improved with Cochicine Assessment & Plan (10/12/2024 1:46 PM EST): Avoid protein meat Increase fluids H/O unilateral nephrectomy 02/15/2023 Hypertriglyceridemia 02/15/2023 Internal derangement of right knee 02/15/2023 Loose body of right knee 02/15/2023 Low HDL (under 40) 02/15/2023 Lumbago with sciatica, left side 02/15/2023 Lumbar degenerative disc disease 02/15/2023 Melanoma of back 02/15/2023 Prostate cancer 02/15/2023 Severe acute respiratory syn drome coronavirus 2 (SARS-CoV-2) detected 02/15/2023 Trigger finger, right index finger 02/15/2023 Type 2 diabetes mellitus wit h diabetic chronic kidney disease 02/15/2023 Type 2 diabetes mellitus wit hout complication, without long-term current use of insulin 02/15/2023 Assessment & Plan (11/28/2024 2:07 PM EDT): No Tobacco use Follow ADA 1800 diet low carbohydrate Continue Med Compliance Goal LDL less than 100 Goal BP 130/80 Goal HgbA1c < 7.0% Monitor Feet, monitor for infection Needs Exercise Yearly eye exams Prior to your visit today we reviewed your chart and outlined testing and treatment needed for your care. Reviewed poissble complications of diabetes including, loss of vision, kidney failure and increased risk of heart attacks and stroke. We made recommendations on how to control your blood sugars, and minimize your risk of these complications. We discussed your current barriers to a healthy living and importance of healthy diet and exercise. Last Prednisone was two weeks ago has had 3 rounds. Since Thanksgiving. Assessment & Plan (08/14/2024 9:52 AM EST): No Tobacco use Follow ADA 1800 diet low carbohydrate Continue Med Compliance Goal LDL less than 100 Goal BP 130/80 Goal HgbA1c < 7.0% Monitor Feet, monitor for infection Needs Exercise Yearly eye exams Prior to your visit today we reviewed your chart and outlined testing and treatment needed for your care. Reviewed poissble complications of diabetes including, loss of vision, kidney failure and increased risk of heart attacks and stroke. We made recommendations on how to control your blood sugars, and minimize your risk of these complications. We discussed your current barriers to a healthy living and importance of healthy diet and exercise. Degeneration of lumbar intervertebral disc 04/18 Loose body in knee 03/26/2021 Sciatica 03/05/2020 Raised prostate specific antigen 01/29/2020 Kidney stone 03/29/2019 Diabetic renal disease 01/27/2019 Stage 3 chronic kidney disease 01/27/2019 Assessment & Plan (07/05/2023 8:27 AM EST): Labs ordered Avoid NSAIDs such as Ibuprofen, Motrin, Naprosyn. Increase fluids. 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 Chronic fatigue syndrome 10/22/2017 History of malignant melanoma of skin 09/14/2017 Malignant melanoma of other part of trunk 2016 Assessment & Plan (08/14/2024 9:53 AM EST): F/up with derm Type 2 diabetes mellitus without complication Acquired trigger finger 03/16/2016 Encounters Date Type Department Care Team Description 02/28/2025 11:00 AM EDT Treatment [facility] [address] [place] [address] Fabricio Francois, LENS INSERTER Pain, neck (Primary Dx); Cervical paraspinal muscle spasm 02/28/2025 Bamboo flowsheet [facility] [address] [place] [address] Fabricio Francois, FLORENCIO 02/28/2025 Travel 02/26/2025 Abstract [facility] [address] [place] [address] Larisa Whalen MD 02/22/2025 10:00 AM EDT Evaluation [facility] [address] [place] [address] Wilbert Joseph, PT Pain, neck (Primary Dx); Cervical paraspinal muscle spasm 02/22/2025 Plan of Care Documentation [facility] [address] [place] [address] 02/22/2025 Refill [facility] [address] [place] [address] Larisa Whalen MD Type 2 diabetes mellitus without complication, without long-term current use of insulin ([facility]) 02/22/2025 Bamboo flowsheet [facility] [address] [place] [address] Wilbert Joseph, PT 02/22/2025 Travel 02/12/2025 8:30 AM EDT Treatment [facility] [address] [place] [address] Fabricio Francois, LENS INSERTER Acute low back pain without sciatica, unspecified back pain laterality (Primary Dx); Lumbar paraspinal muscle spasm; Acute left lumbar radiculopathy 02/12/2025 Telephone [facility] [address] [place] [address] Larisa Whalen MD 02/12/2025 Bamboo flowsheet [facility] [address] [place] [address] Alessandro Fabricio, LENS INSERTER 02/12/2025 Travel 02/05/2025 9:00 AM EDT Treatment [facility] [address] [facility] [address] [place] [address] Fabricio Francois, LENS INSERTER Acute low back pain without sciatica, unspecified back pain laterality (Primary Dx); Lumbar paraspinal muscle spasm 02/05/2025 Bamboo flowsheet [facility] [address] [facility] [address] [place] [address] Alessandro Fabricio, LENS INSERTER 02/05/2025 Travel 01/31/2025 Orders Only [facility] [address] [facility] [address] [place] [address] Transient alteration of awareness; Forgetfulness; Loss of balance 01/17/2025 2:00 PM EDT Treatment [facility] [address] [facility] [address] [place] [address] Charly Hannah, LENS INSERTER Acute low back pain without sciatica, unspecified back pain laterality (Primary Dx); Lumbar paraspinal muscle spasm; Acute left lumbar radiculopathy 01/17/2025 Bamboo flowsheet [facility] [address] [facility] [address] [place] [address] Charly Hannah, LENS INSERTER 01/17/2025 Travel 01/12/2025 1:30 PM EDT Treatment [facility] [address] [facility] [address] [place] [address] Marilyn Ochoa, PT Acute low back pain without sciatica, unspecified back pain laterality (Primary Dx); Lumbar paraspinal muscle spasm; Acute left lumbar radiculopathy 01/12/2025 Bamboo flowsheet [facility] [address] [facility] [address] [place] [address] Marilyn Ochoa, PT 01/12/2025 Travel 01/10/2025 3:00 PM EDT Treatment [facility] [address] [facility] [address] [place] [address] Fabricio Francois, LENS INSERTER Acute low back pain without sciatica, unspecified back pain laterality (Primary Dx); Lumbar paraspinal muscle spasm; Acute left lumbar radiculopathy 01/10/2025 Bamboo flowsheet [facility] [address] [facility] [address] [place] [address] Fabricio Francois, LENS INSERTER 01/10/2025 Travel 01/04/2025 Abstract [facility] [address] [facility] [address] [place] [address] Larisa Whalen MD 01/03/2025 4:00 PM EDT Treatment [facility] [address] [facility] [address] [place] [address] Fabricio Francois, LENS INSERTER Acute low back pain without sciatica, unspecified back pain laterality (Primary Dx); Lumbar paraspinal muscle spasm; Acute left lumbar radiculopathy 01/03/2025 Bamboo flowsheet [facility] [address] [facility] [address] [place] [address] Fabricio Francois, LENS INSERTER 01/03/2025 Travel 01/01/2025 Clinisync Result Encounter [facility] External Department Unsolicited Provider, Generic External Data 12/26/2024 10:30 AM EDT Treatment [facility] [address] [facility] [address] [place] [address] Fabricio Francois, LENS INSERTER Acute low back pain without sciatica, unspecified back pain laterality (Primary Dx); Lumbar paraspinal muscle spasm; Acute left lumbar radiculopathy 12/26/2024 Bamboo flowsheet [facility] [address] [facility] [address] [place] [address] Fabricio Francois, LENS INSERTER 12/26/2024 Travel 12/18/2024 10:00 AM EDT Treatment [facility] [address] [facility] [address] [place] [address] Fabricio Francois, LENS INSERTER Acute low back pain without sciatica, unspecified back pain laterality (Primary Dx); Lumbar paraspinal muscle spasm; Acute left lumbar radiculopathy 12/18/2024 Bamboo flowsheet [facility] [address] [place] [address] Fabricio Francois, LENS INSERTER 12/18/2024 Travel 12/15/2024 11:30 AM EDT Treatment [facility] [address] [facility] [address] [place] [address] Fabricio Francois, LENS INSERTER Acute low back pain without sciatica, unspecified back pain laterality (Primary Dx); Lumbar paraspinal muscle spasm; Acute left lumbar radiculopathy 12/15/2024 Bamboo flowsheet [facility] [address] [place] [address] Fabricio Francois, LENS INSERTER 12/15/2024 Travel 12/11/2024 9:00 AM EDT Treatment [facility] [address] [facility] [address] [place] [address] Fabricio Francois, LENS INSERTER Acute low back pain without sciatica, unspecified back pain laterality (Primary Dx); Lumbar paraspinal muscle spasm; Acute left lumbar radiculopathy; Low back pain with left-sided sciatica, unspecified back pain laterality, unspecified chronicity 12/11/2024 Bamboo flowsheet [facility] [address] [facility] [address] [place] [address] Fabricio Francois, LENS INSERTER 12/11/2024 Travel 12/06/2024 10:00 AM EDT Treatment [facility] [address] [facility] [address] [place] [address] Fabricio Francois, LENS INSERTER Acute low back pain without sciatica, unspecified back pain laterality (Primary Dx); Lumbar paraspinal muscle spasm; Acute left lumbar radiculopathy; Low back pain with left-sided sciatica, unspecified back pain laterality, unspecified chronicity 12/06/2024 Bamboo flowsheet [facility] [address] [facility] [address] [place] [address] Fabricio Francois, LENS INSERTER 12/06/2024 Travel 12/04/2024 12:00 PM EDT Evaluation [facility] [address] [place] [address] Marilyn Ochoa, PT Acute low back pain without sciatica, unspecified back pain laterality (Primary Dx) 12/04/2024 Plan of Care Documentation [facility] [address] [place] [address] 12/04/2024 Bamboo flowsheet [facility] [address] [place] [address] Marilyn Ochoa, PT 12/04/2024 Travel from Last 3 Months Immunizations Immunization Administration Dates Next Due Influenza, High Dose Seasona l, Preservative Free 06/02/2022,06/20/2019,06/20/2018 Influenza, High-dose Seasona l, Quadrivalent, Preservative Free 05/24/2020,06/20/2019,06/20/2018 Influenza, Split (incl. talia fied surface antigen) 06/23/2017 Influenza, injectable, quadr ivalent, preservative free 05/20/2023,06/11/2021,06/11/2015 Influenza, seasonal, injectable 06/05/2020,06/05,06/24/2017 Pneumococcal Conjugate PCV 13 06/20/2019 Pneumococcal Conjugate, Unspecified 06/24/2017 Family History Medical History Relation Name Comments Cancer Mother Melanoma Mother Relation Name Status Comments Father Mother Social History Tobacco Use Types Packs/Day Years Used Date Smoking Tobacco: Never Passive Smoke Exposure: Never Smokeless Tobacco: Never Tobacco Cessation:Counseling Given: Yes Alcohol Use Standard Drinks/Week Comments Never 0 (1 standard drink = 0.6 oz pur e alcohol) PHQ-2 Answer Date Recorded Patient Health Questionnaire-2 Score 0 11/28/2024 Sex and Gender Information Value Date Recorded Sex Assigned at Male 03/19/2023 5:57 PM EDT Legal Sex Male 7:25 PM EDT Gender Identity Not on file Sexual Orientation Straight 03/19/2023 5: 57 PM EDT Last Filed Vital Signs Vital Sign Reading Time Taken Comments Blood Pressure 124/70 11/28/2024 1:51 PM EDT Pulse 73 11/28/2024 1:51 PM EDT Temperature 36.5 C (97.7 F) 11/23/2024 10:44 AM EDT Respiratory Rate 16 10/03/2024 3:15 PM EST Oxygen Saturation 92% 11/28/2024 1:51 PM EDT Inhaled Oxygen Concentration - - Weight 91.2 kg (201 lb) 11/28/2024 1:51 PM EDT Height 175.3 cm (5' 9 ) 11/28/2024 1:51 PM EDT Body Mass Index 29.68 11/28/2024 1:51 PM EDT Plan of Treatment Upcoming Encounters Date Type Department Care Team (Late st Contact Info) Description 03/05/2025 1:30 PM EDT Treatment [facility] [address] [place] [address] Fabricio Francois, LENS INSERTER 03/06/2025 3:30 PM EDT Office Visit [facility] [address] [place] [address] Larisa Whalen MD [address] [place] [address] 03/08/2025 10:30 AM EDT Treatment [facility] [address] [place] [address] Fabricio Francois, LENS INSERTER 03/12/2025 10:30 AM EDT Treatment [facility] [address] [place] [address] Charly Hannah, FLORENCIO 03/15/2025 11:30 AM EDT Treatment [facility] [address] [place] [address] Charly Hannah, FLORENCIO 03/20/2025 1:00 PM EDT Treatment [facility] [address] [place] [address] Fabricio Francois, LENS INSERTER Health Maintenance Due Date Last Done Comments Pneumococcal Vaccine: 65+ Ye ars (2 of 2 - PPSV23) 08/15/2019 06/20/2019, 06/24/2017 Diabetes: Hemoglobin A1C 02/27/202511/28/2 025, 08/14/2024, 07/05/2023, Additional history exists Influenza Vaccine (#1) 2025 , 05/20/2023, 06/02/2022, Additional history exists Medicare Annual Wellness (AWV) 08/14/2025 1 10/15/2023, 07/05/2023, 02/05/2022 Diabetes: Urine Protein Screening 08/28/2025 08/28/2024, 07/05/2023, 02/09/2022, Additional history exists Diabetes: Retinopathy Screening 07/31/2026 07/31/2024, 11/16/2022, 03/25/2021, Additional history exists Procedures Procedure Name Priority Date/Time Associated Diagnosis Comments MHPT PSA, DIAGNOSTIC Routine 01/01/2025 11:50 AM EDT POCT GLYCATED HEMOGLOBIN, TOTAL Routine 11/28/2024 2:02 PM EDT Type 2 diabetes mellitus with chronic kidney disease, with long-term current use of insulin, unspecified CKD stage ([facility]) MICROALBUMIN / CREATININE URINE RATIO Routine 08/28/2024 10:02 AM EST Type 2 diabetes mellitus with stage 3a chronic kidney disease, without long-term current use of insulin ([facility]) Medicare annual wellness visit, subsequent DIABETIC RETINOPATHY SCREENING - OU - BOTH EYES Routine 11/16/2022 9:58 AM EDT from Last 3 Months or Most Recently Relevant to Health Maintenance Results * [facility]PT PSA, DIAGNOSTIC (01/01/2025 11:50 AM EDT) PROSTATE SPECIFIC ANTIGEN DX 0.26 <=4.00 ng/mL [facility] 01/01/2025 11:5 0 AM EDT 01/01/2025 11:57 AM EDT Narrative [facility] - 01/01/2025 1:22 PM EDT us Generic External Data Provider SHEEBA rico Result [facility] * (ABNORMAL) POCT Glycated hemoglobin, total (11/28/2024 2:02 PM EDT) Hemoglobin A1C 7.8 Blood 11/28/2024 2:02 PM EDT us Larisa Whalen MD POINT OF CARE TEST ENTER/EDIT OR DERABLES Final Result * Microalbumin / creatinine urine ratio (08/28/2024 10:02 AM EST) CREATININE, RANDOM URINE 111 20 - 320 mg/dL [facility] ALBUMIN, URINE 0.9 See Note: mg/dL [facility] Comment: Reference Range: Reference Range Not established ALBUMIN/CREATININE RATIO, RANDOM URINE 8 <30 mg/g creat [facility] Comment: The ADA defines abnormalities in albumin excretion as follows: Albuminuria Category Result (mg/g creatinine) Normal to Mildly increased <30 Moderately increased 30-299 Severely increased > OR = 300 The ADA recommends that at least two of three specimens collected within a 3-6 month period be abnormal before considering a patient to be within a diagnostic category. Urine Urine specimen obtained by clean catch procedure / Unknown 08/28/2024 10:02 AM EST 08/28/2024 10:04 AM EST Narrative [facility] - 08/29/2024 9:58 AM EST FASTING:YES FASTING: YES Resulting Agency Comment Performing Organization Information Site ID: [id number] Name: [facility] Address: [address] [place] [address], [address] [place] [id number] Director: Zurdo Ball MD us Larisa Whalen MD LAB URINE ORDERABLES Final Resul t [facility] * Diabetic Retinopathy Screening - OU - Both Eyes (11/16/2022 9:58 AM EDT) Anatomical Region Laterality Modality Head Other Narrative 11/16/2022 9:58 AM EDT normal us Larisa Whalen MD OPHTH PHOTOGRAPHY Edited Result - Final from Last 3 Months or Most Recently Relevant to Health Maintenance Insurance MEDICARE GENERIC COMM[employer]CIAL Care Teams Batch Plant Supervisor Relationship Specialty Start Date End Date Larisa Whalen MD [address] [facility] [address] [place] [address] PCP - ACO Reach 01/14/23 Larisa Whalen MD [address] [facility] [address] [place] [address] PCP - General Family Medicine 02/25/23
--- OUTSIDE RECORDS SUMMARY | 2025-03-02 05:04 | XMS_ITS | Encounter Summary ---
Author Organization [facility] Address [address] [place] [address] Care Team Providers Care Catering Director Name Role Phone Larisa Whalen MD Unavailable Larisa Whalen MD Primary Care Provider [phone] Encounter Details Date Type Department Care Team (Late Contact Info) Description 08/11/2023 Abstract [facility] 112 [facility] 110 [place] [address] Larisa Whalen MD 112 [facility] 110 [place] [address] Social History Tobacco Use Types Packs/Day Years [...] CI PT [address] [place] [address] Fabricio Francois PTA 03/06/2025 3:30 PM EDT Office Visit [facility] [address] [facility] 110 [place] [address] Larisa Whalen MD [address] [place] [address] 03/08/2025 10:30 AM EDT Treatment [facility] PT [address] [place] [address] Fabricio Francois, SHIPPING TEAM LEADER 03/12/2025 10:30 AM EDT Treatment [facility] PT [address] [place] [address] Charly Hannah, SHIPPING TEAM LEADER 03/15/2025 11:30 AM EDT Treatment [facility] PT [address] [place] [address] Charly Hannah, SHIPPING TEAM LEADER 03/20/2025 1:00 PM EDT Treatment [facility] PT [address] [place] [address] Fabricio Francois, SHIPPING TEAM LEADER documented as of this encounter Visit Diagnoses Not on filedocumented in this encounter Care Teams Catering Director Relationship Specialty Start Date End Date Larisa Whalen MD [address] [place] [address] [place] [address] PCP - ACO Reach 01/14/23 aLrisa Whalen MD [address] [place] [address] PCP - General Family Medicine 02/25/23 documented as of this encounter
--- OUTSIDE RECORDS SUMMARY | 2025-03-02 05:04 | XMS_ITS | Encounter Summary ---
Author Organization [facility] Address [address] [facility] [place] [address] Care Team Providers Care Camera Engineer Name Role Phone Larisa Whalen MD Unavailable Larisa Whalen MD Primary Care Provider [phone] Encounter Details Date Type Department Care Team (Late Contact Info) Description 08/18/2024 Abstract [facility] [address] [facility] 110 [place] [address] Larisa Whalen MD [address] [place] [address] [place] [address] Social History Tobacco Use Types Packs/Day Years [...] CI PT [address] [place] [address] Fabricio Francois PTA 03/06/2025 3:30 PM EDT Office Visit [facility] [address] [place] [address] Larisa Whalen MD [address] [place] [address] [place] [address] 03/08/2025 10:30 AM EDT Treatment [facility] PT [address] [place] [address] Fabricio Francois, TEST ENGINE OPERATOR 03/12/2025 10:30 AM EDT Treatment [facility] [address] [place] [address] Camden Charly, TEST ENGINE OPERATOR 03/15/2025 11:30 AM EDT Treatment [facility] PT [address] [place] [address] Charly Hannah, TEST ENGINE OPERATOR 03/20/2025 1:00 PM EDT Treatment [facility] PT [address] [facility] [address] [place] [address] Fabricio Francois, TEST ENGINE OPERATOR documented as of this encounter Visit Diagnoses Not on filedocumented in this encounter Care Teams Camera Engineer Relationship Specialty Start Date End Date Larisa Whalen MD [address] [place] [address] PCP - ACO Reach 01/14/23 Larisa Whalen MD [address] [place] [address] PCP - General Family Medicine 02/25/23 documented as of this encounter
--- OUTSIDE RECORDS SUMMARY | 2025-03-02 05:04 | XMS_ITS | Encounter Summary ---
Author Organization [facility] Address [address] [place] [address] Care Team Providers Care Senior Wind Energy Consultant Name Role Phone Larisa Keyes MD Unavailable Larisa Keyes MD Primary Care Provider [phone] Encounter Details Date Type Department Care Team (Late st Contact Info) Description 08/24/2024 Clinisync Result Encounter [facility] External Department Unsolicited Larisa Keyes MD [address] [facility] 110 [place] [address] Social History Tobacco Use Types Packs/Day Years [...] CI PT [address] [place] [address] Fabricio Francois PTA 03/06/2025 3:30 PM EDT Office Visit [facility] [address] [place] [address] [place] [address] Larisa Keyes MD [address] [place] [address] [place] [address] 03/08/2025 10:30 AM EDT Treatment [facility] [address] [place] [address] Fabricio Francois, NEON SIGN ERECTOR 03/12/2025 10:30 AM EDT Treatment [facility] [address] [place] [address] Charly Hannah, NEON SIGN ERECTOR 03/15/2025 11:30 AM EDT Treatment [facility] PT [address] [place] [address] CamdenRosasCharly, NEON SIGN ERECTOR 03/20/2025 1:00 PM EDT Treatment [facility] PT [address] [place] [address] Fabricio Francois, NEON SIGN ERECTOR documented as of this encounter Procedures Procedure Name Priority Date/Time Associated Diagnosis Comments MR HEAD/BRAIN WO CON 08/24/2024 4:45 PM EST documented in this encounter Results * MR HEAD/BRAIN WO CON (08/24/2024 4:45 PM EST) Anatomical Region Laterality Modality Other 08/24/2024 4:45 PM EST Narrative 08/24/2024 4:47 PM EST [address] [address] Magnetic Resonance Report Signed Patient: ROCIO ZENG MR#: [id number] : 1945 Acct:[id number] Age/Sex: 78 / M ADM Date: 08/24/24 Loc: MRI Attending Dr: LARISA KEYES Ordering Physician: LARISA KEYES Date of Service: 08/24/24 Procedure(s): MR head/brain wo con Accession Number(s): [id number] cc: LARISA KEYES [address] [address] Patient Name: ROCIO ZENG MRN: TB[facility]:[id number] date: 1945 Sex: M Assigned Patient Location: MRI Current Patient Location: MRI Accession/Order Number: [id number] Exam Date: 08/24/2024 13:10 Report Date: 08/24/2024 16:45 At the request of: LARISA KEYES Procedure: MR head/brain wo con EXAM: MR head/brain wo con HISTORY: Abnormal CT Of Brain COMPARISON: None. TECHNIQUE: MRI of the brain was performed without contrast. FINDINGS: There is no restricted diffusion to suggest acute infarct. There is no midline shift, mass effect, or abnormal extraaxial fluid collections. There is moderate cerebral volume loss. Multiple nonspecific scattered foci of T2/FLAIR signal abnormality are identified in the subcortical and periventricular white matter, likely reflect chronic microvascular ischemic changes. The major intracranial flow voids are visualized. The cerebellar tonsils are normal in position. The orbits are unremarkable. There is status post right lens replacement. The paranasal sinuses show no air-fluid level. The mastoid air cells are clear. The calvarium and extracranial soft tissues are unremarkable. MR/MR head/brain wo con IMPRESSION: No acute intracranial abnormality. 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 Electronically authenticated by: VICK PECK Date: 08/24/2024 16:45 Dictated By: VICK PECK M.D. Signed By: 08/24/241646 DD/ 44 TD/TT: Urban Planner: Procedure Note Radiology, Radiologist, MD - 08/24/2024 [place] [address] Magnetic Resonance Report Signed Patient: ROCIO ZENG AMR#: [id number] : 1945cct:[id number] Age/Sex: 78 / MADM Date: 08/24/24 Loc: MRI Attending Dr: LARISA KEYES Ordering Physician: LARISA KEYES Date of Service: 08/24/24 Procedure(s): MR head/brain wo con Accession Number(s): [id number] cc: LARISA KEYES The [address] [address] Patient Name: ROCIO ZENG MRN: [facility] [facility]:[id number] date: 1945 Sex: M Assigned Patient Location: MRI Current Patient Location: MRI Accession/Order Number: [id number] Exam Date: 08/24/2024 13:10 Report Date: 08/24/2024 16:45 At the request of: LARISA KEYES Procedure: MR head/brain wo con EXAM: MR head/brain wo con HISTORY: Abnormal CT Of Brain COMPARISON: None. TECHNIQUE: MRI of the brain was performed without contrast. FINDINGS: There is no restricted diffusion to suggest acute infarct. There is no midline shift, mass effect, or abnormal extraaxial fluid collections. There is moderate cerebral volume loss. Multiple nonspecific scatteredfoci of T2/FLAIR signal abnormality are identified in the subcortical and periventricular white matter, likely reflect chronic microvascularischemic changes. The major intracranial flow voids are visualized. The cerebellar tonsilsare normal in position. The orbits are unremarkable. There is status post right lens replacement.The paranasal sinuses show no air-fluid level. The mastoid air cells areclear. The calvarium and extracranial soft tissues are unremarkable. MR/MR head/brain wo con IMPRESSION: No acute intracranial abnormality. 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 Electronically authenticated by: VICK PECK Date: 08/24/2024 16:45 Dictated By: VICK PECK M.D. Signed By:08/24/247 DD/ 44 TD/TT: Urban Planner: Larisa Keyes MD [facility] Final Result documented in this encounter Visit Diagnoses Not on filedocumented in this encounter Care Teams Senior Wind Energy Consultant Relationship Specialty Start Date End Date Larisa Keyes MD [address] [facility] 110 [place] [address] PCP - ACO Reach 01/14/23 Larisa Keyes MD [address] [facility] 110 [place] [address] PCP - General Family Medicine 02/25/23 documented as of this encounter
--- OUTSIDE RECORDS SUMMARY | 2025-03-02 05:04 | XMS_ITS | Encounter Summary ---
Author Organization [facility] Address [address] [place] [address] Care Team Providers Care Correction Warden Name Role Phone Larisa Whalen MD Unavailable Larisa Whalen MD Primary Care Provider [phone] Encounter Details Date Type Department Care Team (Late Contact Info) Description 02/28/2025 Bamboo flowsheet [facility] [address] [place] [address] Fabricio Francois PTA Social History Tobacco Use Types Packs/Day Years [...] CI PT [address] [place] [address] Fabricio Francois PTA 03/06/2025 3:30 PM EDT Office Visit [facility] [address] [place] [address] [place] [address] Larisa Whalen MD [address] [place] [address] [place] [address] 03/08/2025 10:30 AM EDT Treatment [facility] PT [address] [place] [address] Fabricio Francois, NEW CAR SALESPERSON 03/12/2025 10:30 AM EDT Treatment [facility] PT [address] [place] [address] Charly Hannah, NEW CAR SALESPERSON 03/15/2025 11:30 AM EDT Treatment [facility] PT [address] [place] [address] Charly Hannah, NEW CAR SALESPERSON 03/20/2025 1:00 PM EDT Treatment [facility] PT [address] [place] [address] Fabricio Francois, NEW CAR SALESPERSON documented as of this encounter Visit Diagnoses Not on filedocumented in this encounter Care Teams Correction Warden Relationship Specialty Start Date End Date Larisa Whalen MD [address] [place] [address] [place] [address] PCP - ACO Reach 01/14/23 Larisa Whalen MD [address] [place] [address] PCP - General Family Medicine 02/25/23 documented as of this encounter
--- OUTSIDE RECORDS SUMMARY | 2025-03-02 05:04 | XMS_ITS | Encounter Summary ---
Author Organization [facility] Address [address] [place] [address] Care Team Providers Care Bessemer Regulator Name Role Phone Larisa Whalen MD Unavailable Larisa Whalen MD Primary Care Provider Encounter Details Date Type Department Care Team (Late st Contact Info) Description 05/03/2024 External Result Encounter [facility] External Department Unsolicited Subha Neal, FIORELLA [address] [facility] 110 [place] [address] Social History Tobacco Use Types Packs/Day Years [...] CI PT [address] [place] [address] Fabricio Francois PTA 03/06/2025 3:30 PM EDT Office Visit [facility] [address] [place] [address] Larisa Whalen MD [address] [place] [address] 03/08/2025 10:30 AM EDT Treatment [facility] PT [address] [place] [address] AlessandroFabricio, PALLET SORTER 03/12/2025 10:30 AM EDT Treatment [facility] PT [address] [place] [address] CamdenCharly, PALLET SORTER 03/15/2025 11:30 AM EDT Treatment [facility] PT [address] [place] [address] Camden Charly, PALLET SORTER 03/20/2025 1:00 PM EDT Treatment [facility] PT [address] [place] [address] Fabricio Francois, PALLET SORTER documented as of this encounter Procedures Procedure Name Priority Date/Time Associated Diagnosis Comments CT HEAD WO IV CONTRAST 05/03/2024 10:15 AM EDT documented in this encounter Results * CT head wo IV contrast (05/03/2024 10:15 AM EDT) Anatomical Region Laterality Modality Head, Neck Computed Tomogra phy 05/03/2024 10:1 5 AM EDT Impressions 05/03/2024 10:22 AM EDT ATROPHY AND SMALL VESSEL ISCHEMIC CHANGES. NO ACUTE INTRACRANIAL ABNORMALITY. Impression dictated by: Danya Lovelace M.D.05/03/2024 10:19 AM Dictation Location: [place] [address] Transcribed By: [facility] 05/03/24 1019 Dictated By: Danya Lovelace MD 05/03/24 1015 Signed By: <Electronically signed by MD Danya Lovelace in OV> 05/03/24 1019 Narrative 05/03/2024 10:22 AM EDT [facility] [address] CT Scan Report Signed Patient: Ritchie Zeng MR#: [id number] : 1945 Acct:[id number] Age/Sex: 78 / M ADM Date: 05/03/24 Loc: CT Room: Type: [facility] Attending Dr: Subha Neal CLIENT SUPPORT ANALYST-C Copies to: RENAY Simpson Ordering Provider: RENAY Simpson Date of Service: 05/03/24 CT/CT head/brain wo con: R68.89, R26.89 CT BRAIN WITHOUT CONTRAST: CLINICAL HISTORY: Confusion, forgetfulness, disorientation and loss of balance. COMPARISON: None TECHNIQUE: Contiguous axial unenhanced images were obtained through the brain. This CT exam was performed using one or more following dose reduction techniques: Automated exposure control, adjustment of the mA and/or kV according to patient size, or use of iterative reconstruction technique. FINDINGS: There is generalized atrophy. The ventricles are normal in size and position. Mild microvascular changes are noted. There are no additional areas of abnormal attenuation. There is no hemorrhage, mass effect or extra-axial collections. There is potential empty sella. The imaged paranasal sinuses and mastoid air cells are clear. There is carotid siphon plaque. CT/CT head/brain wo con Procedure Note Radiology, Radiologist, MD - 05/03/2024 [facility] [place] [address] [place] [address] CT Scan Report Signed Patient: Ritchie Zeng AMR#: [id number] : 1945cct:[id number] Age/Sex: 78 / MADM Date: 05/03/24 Loc: CT Room:Type: [facility] CLI Attending Dr: Subha Neal CLIENT SUPPORT ANALYST-C Copies to: RENAY Simpson Ordering Provider: RENAY Simpson Date of Service: 05/03/24 CT/CT head/brain wo con: R68.89, R26.89 CT BRAIN WITHOUT CONTRAST: CLINICAL HISTORY: Confusion, forgetfulness, disorientation and loss ofbalance. COMPARISON: None TECHNIQUE: Contiguous axial unenhanced images were obtained through thebrain. This CT exam was performed using one or more following dose reduction techniques: Automatedexposure control, adjustment of the mA and/or kV according to patient size, or use ofiterative reconstruction technique. FINDINGS: There is generalized atrophy. The ventricles are normal in sizeand position. Mild microvascular changes are noted. There are no additional areas of abnormalattenuation. There is no hemorrhage, mass effect or extra-axial collections. There is potentialempty sella. The imaged paranasal sinuses and mastoid air cells are clear. There is carotid siphonplaque. CT/CT head/brain wo con IMPRESSION: ATROPHY AND SMALL VESSEL ISCHEMIC CHANGES. NO ACUTE INTRACRANIAL ABNORMALITY. Impression dictated by: Danya Lovelace M.D.05/03/2024 10:19 AM Dictation Location: [place] [address] Transcribed By: [facility] 05/03/24 1019 Dictated By: Danya Lovelace MD 05/03/24 1015 Signed By: <Electronically signed by MD Danya Lovelace in OV> 05/03/24 1019 Subha Neal CLIENT SUPPORT ANALYST IMG CT PROCEDURES Final Resu lt documented in this encounter Visit Diagnoses Not on filedocumented in this encounter Care Teams Bessemer Regulator Relationship Specialty Start Date End Date Larisa Whalen MD [address] [address] PCP - ACO Reach 01/14/23 Larisa Whalen MD [address] [facility] 110 [place] [address] PCP - General Family Medicine 02/25/23 documented as of this encounter
--- OUTSIDE RECORDS SUMMARY | 2025-03-02 05:04 | XMS_ITS | Encounter Summary ---
Author Organization [facility] Address [address] [place] [address] Care Team Providers Care Client Care Specialist Name Role Phone Larisa Whalen MD Unavailable Larisa Whalen MD Primary Care Provider [phone] Encounter Details Date Type Department Care Team (Late Contact Info) Description 01/25/2024 Abstract [facility] [address] [facility] 110 [place] [address] Larisa Whalen MD 112 [facility] 110 [place] [address] Social History Tobacco Use Types Packs/Day Years [...] CI PT [address] [place] [address] Fabricio Francois PTA 03/06/2025 3:30 PM EDT Office Visit [facility] [address] [facility] 110 [place] [address] Larisa Whalen MD [address] [place] [address] 03/08/2025 10:30 AM EDT Treatment [facility] PT [address] [place] [address] Fabricio Francois, ASSISTANT EDITOR 03/12/2025 10:30 AM EDT Treatment [facility] PT [address] [place] [address] Charly Hannah, ASSISTANT EDITOR 03/15/2025 11:30 AM EDT Treatment [facility] PT [address] [place] [address] Charly Hannah, ASSISTANT EDITOR 03/20/2025 1:00 PM EDT Treatment [facility] PT [address] [place] [address] Fabricio Francois, ASSISTANT EDITOR documented as of this encounter Visit Diagnoses Not on filedocumented in this encounter Care Teams Client Care Specialist Relationship Specialty Start Date End Date Larisa Whalen MD [address] [place] [address] [place] [address] PCP - ACO Reach 01/14/23 Larisa Whalen MD [address] [place] [address] [place] [address] PCP - General Family Medicine 02/25/23 documented as of this encounter
--- OUTSIDE RECORDS SUMMARY | 2025-03-02 05:04 | XMS_ITS | CCD ---
Author Organization [facility] Inform ion Partnership [facility] Care Team Providers Care 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 Name Role Phone Unavailable Primary Care Provider Unavailtheodore e Natan Keyes Primary Care Provider Chuck Hamm Unavailable Karine Torres Unavailable Jenn Thomas Unavailable NATAN KEYES Primary Care Physician AKMACKA, MARY Admitting Unavailable AKKINAlexis, MARY Attending Unavailable STEPHY, DR GAMA Primary Care Unavailable STEPHY, DR GAMA Admitting Unavailable STEPHY, DR GAMA Attending Unavailable STEPHY, DR GAMA Primary Care Unavailable STEPHY, DR GAMA Consulting Unavailable STEPHY, DR GAMA Primary Care Unavailable JOAQUIN LUCIANO Admitting Unavailable OJAQUIN LUCIANO Attending Unavailable ROMEL, DR NATHAN Khan Consulting Unavailable DESTINI JORGENSEN Consulting Unavailable STEPHY, DR GAMA Primary Care Unavailable JOAQUIN LUCIANO Admitting Unavailable JOAQUIN LUCIANO Attending Unavailable PHIL GARCIA Consulting Unavailable AKKINA, MARY Admitting Unavailable AKKINAlexis MARY Attending Unavailable STEPHY, DR GAMA Primary Care Unavailable Jillian Edwards Unavailable MD Natan Keyes Primary Care Provider MD Jillian Edwards Attending Provider [phone] Natan Keyes Primary Care Provider MD Natan Keyes Primary Care Provider [phone] MD Chuck Hamm Attending Provider [phone] DO Goyo Mondragon Attending Provider MD Natan Keyes Primary Care Provider MD Jillian Edwards Attending Provider Natan Keyes MD Unavailable Natan Keyes MD Primary Care Provider [phone] Unavailable Primary Care Provider UnavailGOYO Jenkins Attending Unavailable JULIAN HEBERT Referring Unavailable GOYO VALLADARES Attending Unavailable GOYO VALLADARES Referring Unavailable Natan Keyes MD Primary Care Provider MD Natan Keyes Primary Care Provider [phone] RENAY Knight Attending Provider Natan Keyes MD Primary Care Provider Natan Keyes MD Attending Provider Irina Ann MD Referring Provider Bernardo RODGERS Attending Unavailable JENNIFFER SAUNDERS Attending Unavailable Bernardo RODGERS Attending Unavailable Subha Knight Attending Unavailable Subha Knight Admitting Unavailable [place], Rugen M Primary Care Unavailable Irina Ann Referring Unavailable Mapleton, Rugen M Attending Unavailable Stephy, Rugen M Primary Care Unavailable Mapleton, Rugen M Admitting Unavailable STEPHY, RUGEN MABCHRISSY Primary Care Unavailable Stanley BECK Referring Unavailable Stanley BECK Attending Unavailable LEONIE ESPITIA Attending Unavailable STEPHY, RUGEN M Attending Unavailable MERRILL MCRAE Attending Unavailable STEPHY, RUGEN M Attending Unavailable ZEKE ALDRICH Attending Unavailable YAS PROCTOR Attending Unavailable YAS PROCTOR Referring Unavailable STEPHY, RUGEN M Attending Unavailable MARILYN OCHOA Attending Unavailable STEPHY, RUGEN M Referring Unavailable PINO ERIC Attending Unavailable STEPHY, RUGEN M Referring Unavailable BRPINO VENCES Attending Unavailable STEPHY, RUGEN M Referring Unavailable BRPINO VENCES Attending Unavailable STEPHY, RUGEN M Referring Unavailable BRPINO VENCES Attending Unavailable STEPHY, RUGEN M Referring Unavailable BRPINO VENCES Attending Unavailable STEPHY, RUGEN M Referring Unavailable WANDA CHINO Attending Unavailable SUBHA KNIGHT Attending Unavailable WANDA CHINO Attending Unavailable STEPHY, RUGEN M Attending Unavailable MERRILL MCRAE Attending Unavailable PINO ERIC Attending Unavailable NATAN KEYES Referring Unavailable PINO ERIC Attending Unavailable NATAN KEYES Referring Unavailable MARILYN OCHOA Attending Unavailable NATAN KEYES Referring Unavailable CHARLY BROWN Attending Unavailable NATAN KEYES Referring Unavailable PINO ERIC Attending Unavailable NATAN KEYES Referring Unavailable PINO ERIC Attending Unavailable NATAN KEYES Referring Unavailable ELICIA TERRAZAS Attending Unavailable DANYA BRASHER Referring Unavailable Natan Keyes MD Primary Care Unavailable Shaun Jung Attending Unavailable Bates PACShaun Admitting Unavailable Allergies Allergy Classification Reported Allergen(s) Allergy Type Date of Onset Reaction(s) Facility (13 sources) Grass Mix Pollens Allergen Ext Drug allergy Unknown [facility] Other (20 sources) Other Allergy to substance 3 [facility] (20 sources) Wound Dressing Adhesive Drug Allergy 2 Unknown [facility] (1 source) Grass; Translations: [Grass] Propensity to adverse reactions (disorder) [facility] Repository (1 source) Grass pollen Drug allergy (disorder) 4 [facility] Repository Medications Current Medications Medication Drug Class(es) Dates Sig (Normalized) Sig (Original) 0.4 ML cyclosporine 0.5 MG/ML Ophthalmic Suspension [Restasis] (1 source) Start: 05-19-2021 take 1 drop(s) into the eye(s) twice daily Restasis 0.05% Emulsion INSTILL 1 DROP INTO BOTH EYES TWICE A DAY Start Date: 05/19/21 Status: Ordered acetaminophen 325 mg / HYDROcodone bitartrate 5 mg oral tablet (20 sources) Opioid Agonist take 1-2 tablets by mouth three times daily as needed HYDROcodone-aceta minophen ([place]) 5-325 MG tablet TAKE 1-2 TABLET BY MOUTH THREE TIMES DAILY NEEDED Active acetaminophen 325 mg / oxyCODONE hydrochloride 5 mg oral tablet (1 source) Opioid Agonist Percocet 5-325 M G 1 tablet as needed Orally as needed Active [id number] 200 actuat albuterol 0.09 mg/actuat metered dose inhaler (20 sources) beta2-Adrenergic Agonist Start: 02-27-2023 take 2 puff(s) by mouth four times daily as needed albuterol HFA 90 mcg/act inhaler INHALE 2 PUFFS BY MOUTH 4 TIMES A DAY NEEDED 02/27/2023 Active Start: 02-27-2023 take 2 puff(s) by in halation four times daily as needed albuterol 90 mcg/actuation inhaler Inhale 2 puffs 4 times a day as needed. 0 02/27/2023 Active Start: 02-27-2023 take 2 puff(s) by in halation four times daily as needed Albuterol Sulfate HFA 108 (90 Base) MCG/ACT 2 puffs Inhalation 4 times a day prn Feb, Active allopurinol 100 mg oral tablet (20 sources) Xanthine Oxidase Inhibitor Start: 11-10-2024 take 1 tablet by mouth once daily allopurinol (Zyloprim) 100 MG tablet Indications: Acute gout, unspecified cause, unspecified site TAKE 1 TABLET BY MOUTH EVERY DAY 100 tablet 3 11/10/2024 Active Start: 10-12-2024 take 2 tablets by mo uth once daily allopurinol (Zyloprim) 100 MG tablet Indications: Acute gout, unspecified cause, unspecified site Take 2 tablets (200 mg) by mouth Daily 90 tablet 10/12/2024 Active Start: 10-12-2024 take 2 tablets by mo uth once daily allopurinol (Zyloprim) 100 MG tablet Indications: Acute gout, unspecified cause, unspecified site Take 2 tablets (200 mg) by mouth Daily 90 tablet 10/12/2024 Active Start: 05-19-2021 End: 10-12-2024 take 1 tablet by mouth once daily allopurinol (Zyloprim) 100 MG tablet Indications: Acute gout, unspecified cause, unspecified site Take 1 tablet (100 mg) by mouth Daily 90 tablet 08/15/2024 10/12/2024 Discontinued (Reorder) amoxicillin 875 mg / clavulanate 125 mg oral tablet (2 sources) Penicillin-class Antibacterial Start: 02-27-2023 take 1 tablet by mouth every twelve hours Amoxicillin-Pot Clavulanate 875-125 MG 1 tablet Orally every 12 hrs for 10 day(s) Feb, Active ascorbic acid 100 mg oral tablet (20 sources) Vitamin C take 1 tablet by mouth once daily Ascorbic Acid (vitamin C) 100 MG tablet Take 100 mg by mouth Daily Active aspirin 81 mg delayed release oral tablet (20 sources) Platelet Aggregation Inhibitor, Nonsteroidal Anti-inflammatory Drug Start: 09-19-2024 End: 09-19-2025 take 1 tablet by mouth once daily aspirin 81 MG EC tablet Indications: TIA (transient ischemic attack) , Subcortical microvascular ischemic occlusive disease Take 1 tablet (81 mg) by mouth Daily 09/19/2024 09/19/2025 Active atorvastatin 40 mg oral tablet (20 sources) HMG-CoA Reductase Inhibitor Start: 08-14-2024 End: 08-14-2025 take 1 tablet by mouth once daily atorvastatin (Lipitor) 40 MG tablet Indications: Type 2 diabetes mellitus with stage 3a chronic kidney disease, without long-term current use of insulin (HCC) , Other chest pain Take 1 tablet (40 mg) by mouth Daily 30 tablet 11 08/14/2024 08/14/2025 Active Start: 07-05-2023 End: 08-14-2024 take 1 tablet by mouth in the morning atorvastatin (Lipitor) 20 MG tablet Indications: Type 2 diabetes mellitus with stage 3a chronic kidney disease, without long-term current use of insulin (HCC) ([facility]/HCC) Take 1 tablet (20 mg) by mouth in the morning. 100 tablet 3 11/01/2023 08/14/2024 Discontinued (Side effects) baclofen 10 mg oral tablet (20 sources) gamma-Aminobutyric Acid-ergic Agonist baclofen (Lioresal) 10 MG tablet every 8 (eight) hours. Active benzonatate 200 mg oral capsule (2 sources) Non-narcotic Antitussive Start: 023 take 1 capsule by mouth every eight hours Benzonatate 200 MG 1 capsule Orally Three times a day Feb, Active Calcium (6 sources) Phosphate Binder, Calcium Calciu m Active cholecalciferol 0.025 mg oral tablet (20 sources) Vitamin D Start: 020 take 1 tablet by mouth once daily calcium (as carbonate)-vitami n D 90 mg-25 mcg (1000 intl units) oral tablet tab(s), Oral, Daily, Refill(s) 0 Start Date: 06/24/20 Status: Ordered Start: 06-24-2020 take 1 tablet by abhishek th once daily calcium (as carbonate)-vitamin D 90 mg-25 mcg (1000 intl units) oral tablet tab(s), Oral, Daily, Refill(s) 0 Start Date: 06/24/20 Status: Ordered cholecalciferol (Vitamin D-3) 50 MCG (1999 UT) capsule Take by mouth. Active Comment on above: Take by mouth. colchicine 0.6 mg oral tablet (20 sources) Start: 11-23-2024 colchicine 0.6 MG tablet Indications: Great toe pain, right , Hx of gout 2 tabs (1.2mg) x1 then 1 tab (0.6mg) x1 1 hour later. 3 tablet 11 11/23/2024 Active Continuous Blood Gluc Sensor (FreeStyle Mayito 2 Sensor) [facility] (13 sources) Start: 08-03-2023 Continuous Blood Gluc Sensor (FreeStyle Mayito 2 Sensor) [facility] Indications: Type 2 diabetes mellitus without complication, without long-term current use of insulin (CMS/[facility]) CHANGE EVERY 2 WEEKS DIRECTED 2 each 5 08/03/2023 Active Continuous Glucose Transfer Knitter (FreeStyle Mayito 2 Ehrhardt) device (20 sources) Start: 09-28-2024 Continuous Glucose Transfer Knitter (FreeStyle Mayito 2 Ehrhardt) device Indications: Type 2 diabetes mellitus with chronic kidney disease, with long-term current use of insulin, unspecified CKD stage (HCC) 1 Device Daily 1 each 09/28/2024 Active Start: 09-28-2024 Continuous Glu cose Transfer Knitter (FreeStyle Mayito 2 Ehrhardt) device Indications: Type 2 diabetes mellitus with chronic kidney disease, with long-term current use of insulin, unspecified CKD stage (CMS/HCC) 1 Device Daily 1 each 09/28/2024 Active Continuous Glucose Sensor (FreeStyle Mayito 2 Sensor) misc (20 sources) Start: 02-22-2025 Continuous Glu cose Sensor (FreeStyle Mayito 2 Sensor) misc Indications: Type 2 diabetes mellitus without complication, without long-term current use of insulin (HCC) CHANGE EVERY 2 WEEKS DIRECTED 6 each 3 02/22/2025 Active Start: 09-25-2024 Continuous Glu cose Sensor (FreeStyle Mayito 2 Sensor) misc Indications: Type 2 diabetes mellitus without complication, without long-term current use of insulin ([facility]) CHANGE EVERY 2 WEEKS DIRECTED 2 each 2 09/25/2024 Active Start: 09-25-2024 Continuous Glu cose Sensor (FreeStyle Mayito 2 Sensor) misc Indications: Type 2 diabetes mellitus without complication, without long-term current use of insulin CHANGE EVERY 2 WEEKS DIRECTED 2 each 2 09/25/2024 Active Start: 09-25-2024 Continuous Glu cose Sensor (FreeStyle Mayito 2 Sensor) misc Indications: Type 2 diabetes mellitus without complication, without long-term current use of insulin (CMS/HCC) CHANGE EVERY 2 WEEKS DIRECTED 2 each 2 09/25/2024 Active Start: 09-04-2024 Continuous Glu cose Sensor (FreeStyle Mayito 2 Sensor) misc Indications: Type 2 diabetes mellitus without complication, without long-term current use of insulin (CMS/HCC) CHANGE EVERY 2 WEEKS DIRECTED 2 each 2 09/04/2024 Active dexamethasone 0.001 mg/mg / neomycin 0.0035 mg/mg / polymyxin b 10 unt/mg ophthalmic ointment (1 source) Aminoglycoside Antibacterial, Polymyxin-class Antibacterial, Corticosteroid Start: 08-18-2024 Neomycin-Polymyxin B-Dexameth 3.5 mg/g-10,000 unit/g-0.1 % ointment Active 1 APPLIC OPHTHALMIC Twice daily August 18, 2024 12:00am diphenhydrAMINE (4 sources) Histamine-1 Receptor Antagonist diphenhydramine HCl (BENADRYL ALLERGY ORAL) Take by mouth. Active diphenhydramine HCl (BENADRYL ALLERGY ORAL) Take by mouth. 0 Active Comment on above: Take by mouth. Loperamide (4 sources) Opioid Agonist loperamide HCl ( IMODIUM ORAL) Take by mouth as needed. Active loperamide HCl ( IMODIUM ORAL) Take by mouth as needed. 0 Active Comment on above: Take by mouth as nee ded. loteprednol etabonate 2 mg/ml ophthalmic suspension (20 sources) Start: 03-15-2024 take 1 drop(s) into the eye(s) twice daily Loteprednol Etabonate (Alrex) 0.2 % drops,suspension Active 1 DROPS OPHTHALMIC Twice daily March 14, 2024 11:00pm Start: 01-04-2024 take 1 drop(s) into the eye(s) in the morning Alrex 0.2 % suspension ophthalmic suspension Administer 1 drop into both eyes in the morning and 1 drop before bedtime. 01/04/2024 Active metFORMIN hydrochloride 500 mg oral tablet (20 sources) Biguanide Start: 03-15-2024 take 1 tablet by mouth at mealtime metFORMIN (Glucophage) 500 MG tablet Indications: Type 2 diabetes mellitus without complications (HCC) TAKE 1 TABLET (500 MG) BY MOUTH IN THE MORNING AND IN THE EVENING WITH MEALS 180 tablet 4 06/05/2024 Active Start: 05-19-2021 take 1 tablet by abhishek th at mealtime metFORMIN (Glucophage) 500 MG tablet Indications: Type 2 diabetes mellitus without complications TAKE 1 TABLET (500 MG) BY MOUTH IN THE MORNING AND IN THE EVENING WITH MEALS 180 tablet 4 06/05/2024 Active Comment on above: Take 500 mg by mouth daily with breakfast. olopatadine 2 mg/ml ophthalmic solution (6 sources) Histamine-1 Receptor Inhibitor Start: 03-12-2023 Pataday [...] chloride 20 meq extended release oral tablet (20 sources) Start: 06-14-2024 take 1 tablet by mouth once daily KLOR-CON 20 MEQ ER tablet Take 20 mEq by mouth Daily 06/14/2024 Active Start: 03-15-2024 End: 03-15-2024 take 1 tablet by mouth once daily KLOR-CON 20 MEQ ER tablet Take 20 mEq by mouth Daily 06/14/2024 Active potassium phosphate 155 mg / sodium phosphate, dibasic 852 mg / sodium phosphate, monobasic 130 mg oral tablet (20 sources) Start: 01-20-2023 take 1 tablet by mouth in the morning, then take 1 tablet by mouth in the evening, then take 1 tablet by mouth at bedtime K Phos Hatillo-Sod Phos Di & Hatillo (Phospha 250 Neutral) [phone] MG tablet Take 1 tablet by mouth in the morning and 1 tablet in the evening and 1 tablet before bedtime. 01/20/2023 Active predniSONE 10 mg oral tablet (20 sources) Start: 11-23-2024 predniSONE (De ltasone) 10 MG tablet Indications: Great toe pain, right , Hx of gout 4 tabs daily x2 days, then 3 tabs daily x2 days, then 2 tabs daily x2 days, then 1 tab daily x2 days Do not take with colchicine. Only start if gout flare not controlled with colchicine regimen. 20 tablet 11/23/2024 Active Start: 08-18-2024 End: 10-12-2024 predniSONE (Deltasone) 20 MG tablet Indications: Acute gout, unspecified cause, unspecified site 2 tabs x 3, 1 x 3 days, 1/2 tab x 4 days then stop 20 tablet 09/13/2024 Active SITagliptin 100 mg oral tablet (20 sources) Dipeptidyl Peptidase 4 Inhibitor Start: 03-09-2022 Januvia Oral, Daily, Refill(s) 0 Start Date: 03/09/22 Status: Ordered Start: 10-16-2021 End: 08-14-2024 take 1 tablet by mouth in the morning SITagliptin (Januvia) 100 MG tablet Indications: Type 2 diabetes mellitus without complication, without long-term current use of insulin (HCC) Take 1 tablet (100 mg) by mouth in the morning. 100 tablet 4 08/14/2024 Active Januvia Active Comment on above: TAKE 1 TABLET BY ABHISHEK EVERY DAY FOR 30 DAYS tamsulosin hydrochloride 0.4 mg oral capsule (10 sources) alpha-Adrenergic Camryn Start: take 1 capsule by mouth once daily tamsulosin (Flomax) 0.4 MG 24 hr capsule Indications: Benign prostatic hyperplasia with urinary obstruction Take 1 capsule (0.4 mg) by mouth Daily 30 capsule 3 02/13/2025 Active Start: 12-02-2020 End: 12-01-2021 take 1 capsule by mouth once daily at bedtime tamsulosin 0.4 mg Cap TAKE 1 CAPSULE BY MOUTH EVERYDAY AT BEDTIME Start Date: 05/19/21 Status: Ordered Comment on above: Take 1 capsule by mo [facility] daily at bed[facility]. tiZANidine 4 mg oral tablet (7 sources) Central alpha-2 Adrenergic Agonist Start: 05-19-2021 tiZANidine 4 mg Tab TAKE 1/2 1 TABLET BY MOUTH TWICE A DAY NEEDED Start Date: 05/19/21 Status: Ordered triamcinolone acetonide 1 mg/ml topical cream (20 sources) Corticosteroid Start: 09-27-2023 End: 09-13-2024 triamcinolone (Kenalog) 0.1 % cream Indications: Other atopic dermatitis Apply to affected areas, up to twice a day when flared, do not use one the face, groin, or underarms, 30 day supply 454 g 11 09/27/2023 Active Vitamin D3 (6 sources) Vitamin D3 Activ e Completed/Discontinued Medications Medication Drug Class(es) Dates Sig (Normalized) Sig (Original) amoxicillin 875 mg oral tablet (4 sources) Penicillin-class Antibacterial Start: 4 End: 4 take 1 tablet by mouth every twelve hours Amoxicillin 875 mg tablet Discontinued 875 MG PO Every 12 hours 14 7 January 23, 2024 11:00pm March 15, 2024 8:15am azithromycin 250 mg oral tablet (8 sources) Macrolide Antimicrobial Start: 2 take 1 tablet by mouth once daily ZITHROMAX TABLET 250MG PO Take one(1) tablet daily. 4 0 10/14/2001 Active Comment on above: Take one(1) tablet d aily. famotidine 20 mg oral tablet (8 sources) Histamine-2 Receptor Antagonist Start: 2 take 1 tablet by mouth once daily PEPCID TABLET 20MG PO Indications: Abdominal pain, unspecified site , Constipation , Esophageal reflux Take one(1) tablet daily. 30 3 10/14/2001 Active Comment on above: Take one(1) tablet d aily. methylPREDNISolone (7 sources) Corticosteroid Start: 5 End: 5 methylPREDNISolone (Medrol Dospak) 4 MG tablets Indications: Acute gout of right foot, unspecified cause Follow schedule on MEDROL PACK package instructions to be used as directed 21 tablet 10/03/2024 11/23/2024 Discontinued Start: 10-03-2024 methylPREDNISo lone (Medrol Dospak) 4 MG tablets Indications: Acute gout of right foot, unspecified cause Follow schedule on MEDROL PACK package instructions to be used as directed 21 tablet 10/03/2024 Active naproxen 500 mg oral tablet (4 sources) Nonsteroidal Anti-inflammatory Drug Start: 01-24-2024 End: 03-15-2024 take 1 tablet by mouth once daily Naproxen 500 mg tablet Discontinued 500 MG PO Daily January 23, 2024 11:00pm March 15, 2024 8:15am traMADol hydrochloride 50 mg oral tablet (4 sources) Opioid Agonist Start: 01-24-2024 End: 03-15-2024 take 1 tablet by mouth once daily Tramadol 50 mg tablet Discontinued 50 MG PO Daily January 23, 2024 11:00pm March 15, 2024 8:15am Problems Active Problems Problem Classification Problem Date Documented Date Episodic/Chronic Cancer of prostate (20 sources) Malignant tumor of prostate; Translations: [Malignant neoplasm of prostate] Onset: 02-15-2023 06-24-2020 Chronic Chronic kidney disease (20 sources) Chronic kidney disease stage 2; Translations: [Chronic kidney disease, stage 2 (mild)] Onset: 01-27-2019 Chronic Chronic obstructive pulmonary disease and bronchiectasis (1 source) Bronchitis, not specified as acute or chronic Episodic Delirium, dementia, and amnestic and other cognitive disorders (2 sources) Age-related cognitive decline; Translations: [Age-related cognitive decline] 09-13-2024 Chronic Diabetes mellitus with complications (20 sources) Type 2 diabetes mellitus; Translations: [Type 2 diabetes mellitus with diabetic chronic kidney disease] Onset: 01-27-2019 02-15-2023 Chronic Diabetes mellitus without complication (20 sources) Diabetes mellitus; Translations: [Type 2 diabetes mellitus in nonobese] Onset: 02-02-2017 05-15-2019 Chronic Disorders of lipid metabolism (20 sources) Hypertriglyceridemia; Translations: [Pure hyperglyceridemia] Onset: 02-15-2023 02-15-2023 Chronic Essential hypertension (20 sources) Benign essential hypertension; Translations: [Essential (primary) hypertension] Onset: 07-05-2023 07-05-2023 Chronic Gout and other crystal arthropathies (20 sources) Gouty arthritis of toe; Translations: [Gout, unspecified] Onset: 02-15-2023 02-15-2023 Chronic Hyperplasia of prostate (20 sources) Benign prostatic hypertrophy with outflow obstruction; Translations: [Benign prostatic hyperplasia with lower urinary tract symptoms] Onset: 03-09-2022 Chronic Hypertension with complications and secondary hypertension (9 sources) Hypertensive chronic kidney disease with stage 1 through stage 4 chronic kidney disease, or unspecified chronic kidney disease; Translations: [Chronic kidney disease due to hypertension] Chronic Immunizations and screening for infectious disease (3 sources) Contact with and (suspected) exposure to other viral communicable diseases; Translations: [Contact with and (suspected) exposure to other viral communicable diseases Z20.828] Onset: 05-23-2021 Resolved: 06-14-2021 Episodic Inflammation; infection of eye (except that caused by tuberculosis or sexually transmitteddisease) (1 source) Acute atopic conjunctivitis, bilateral Episodic Joint disorders and dislocations; trauma-related (20 sources) Derangement of right knee; Translations: [Unspecified internal derangement of right knee] Onset: 03-26-2021 02-15-2023 Chronic Malaise and fatigue (20 sources) Fatigue; Translations: [Chronic fatigue, unspecified] Onset: 10-22-2017 02-15-2023 Chronic Melanomas of skin (20 sources) Malignant melanoma of back; Translations: [Malignant melanoma of other part of trunk] Onset: 02-26-2017 02-15-2023 Chronic Mycoses (2 sources) Pain in toe; Translations: [Tinea unguium] 09-05-2024 Episodic Nutritional deficiencies (12 sources) Vitamin D deficiency; Translations: [Vitamin D deficiency, unspecified] Chronic Occlusion or stenosis of precerebral arteries (20 sources) Bilateral stenosis of carotid arteries; Translations: [Occlusion and stenosis of bilateral carotid arteries] Onset: 02-15-2023 02-15-2023 Chronic Other acquired deformities (2 sources) Contracture of joint of left ankle; Translations: [Contracture, left ankle] 09-05-2024 Chronic Other aftercare (1 source) 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; Translations: [OTH FINANCE LEAD CURRENT DRUG THERAPY] Onset: 03-16-2022 Episodic Other aftercare (2 sources) Follow-up status; Translations: [Encounter for change or removal of nonsurgical wound dressing] Onset: 11-12-2023 11-12-2023 Episodic Other aftercare (1 source) Encounter for change or removal of nonsurgical wound dressing; Translations: [Encounter for change or removal of nonsurgical wound dressing] Onset: 11-12-2023 Episodic Other and ill-defined cerebrovascular disease (2 sources) Cerebrovascular disease; Translations: [Cerebral ischemia] 09-19-2024 Chronic Other connective tissue disease (1 source) Other muscle spasm; Translations: [OTHER MUSCLE SPASM] Onset: 03-16-2022 Episodic Other connective tissue disease (2 sources) Personal history of other diseases of the musculoskeletal system and connective tissue Episodic Other connective tissue disease (2 sources) Plantar fasciitis; Translations: [Plantar fascial fibromatosis] 09-05-2024 Episodic Other connective tissue disease (2 sources) Pain in hallux; Translations: [Pain in right toe(s)] 11-23-2024 Episodic Other connective tissue disease (2 sources) H/O: gout; Translations: [Personal history of other diseases of the musculoskeletal system and connective tissue] 11-23-2024 Episodic Other connective tissue disease (2 sources) Spasm of cervical paraspinous muscle; Translations: [Other muscle spasm] 02-22-2025 Episodic Other diseases of kidney and ureters (4 sources) Cyst of kidney, acquired; Translations: [Cystic kidney disease, unspecified] Episodic Other diseases of kidney and ureters (3 sources) Cyst of kidney; Translations: [Cyst of kidney, acquired] 03-15-2024 Episodic Other nervous system disorders (13 sources) Chronic pain; Translations: [Other chronic pain] Chronic Other nervous system disorders (3 sources) Other chronic pain Onset: 10-17-2021 Resolved: 03-06-2022 Chronic Other nervous system disorders (20 sources) Disorder of muscle; Translations: [Myopathy, unspecified] Onset: 06-24-2023 06-24-2023 Chronic Other nutritional; endocrine; and metabolic disorders (5 sources) Hypophosphatemia; 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 Other nutritional; endocrine; and metabolic disorders (3 sources) Other disorders of phosphorus metabolism Chronic Other nutritional; endocrine; and metabolic disorders (20 sources) Cholesterol level - finding; Translations: [Lipoprotein deficiency] Onset: 02-15-2023 02-15-2023 Chronic Other nutritional; endocrine; and metabolic disorders (20 sources) Lipoprotein deficiency disorder; Translations: [Lipoprotein deficiency] Onset: 01-25-2018 03-18-2023 Chronic Other skin disorders (4 sources) Seborrheic keratosis; Translations: [Other seborrheic keratosis] 07-18-2024 Episodic Other skin disorders (4 sources) Lentiginosis; Translations: [Other melanin hyperpigmentation] 07-18-2024 Episodic Other skin disorders (4 sources) Actinic keratosis; Translations: [Actinic keratosis] 07-18-2024 Episodic Other upper respiratory infections (5 sources) Acute upper respiratory infection, unspecified; Translations: [Acute pharyngitis, unspecified] Onset: 05-23-2021 Resolved: 02-28-2022 Episodic Otitis media and related conditions (6 sources) Otitis media of right ear; Translations: [Otitis media, unspecified, right ear] 01-24-2024 Episodic Residual codes; unclassified (3 sources) Left kidney absent 03-01-2020 Episodic Residual codes; unclassified (5 sources) Acquired absence of kidney; Translations: [Acquired absence of kidney] Episodic Spondylosis; intervertebral disc disorders; other back problems (20 sources) Prolapsed lumbar intervertebral disc; Translations: [Other intervertebral disc displacement, lumbar region] Onset: 04-18-2021 Resolved: 03-06-2022 Chronic Spondylosis; intervertebral disc disorders; other back problems (20 sources) Lumbar radiculopathy; Translations: [Radiculopathy, lumbar region] Onset: 03-05-2020 Resolved: 03-06-2022 Episodic Transient cerebral ischemia (20 sources) Transient cerebral ischemia; Translations: [Transient cerebral ischemic attack, unspecified] Onset: 09-19-2024 09-19-2024 Chronic Unclassified (3 sources) CONTACT W/AND (SUSP) EXPOS COVID-19; Translations: [CONTACT W/AND (SUSP) EXPOS COVID-19] Onset: 06-20-2021 Past or Other Problems Problem Classification Problem Date Documented Da te Episodic/Chronic Abdominal pain (20 sources) Flank pain; Translations: [Unspecified abdominal pain] Onset: 03-18-2023 02-16-2019 Episodic Allergic reactions (2 sources) Allergic contact dermatitis caused by plant material; Translations: [Allergic contact dermatitis due to plants, except food] 04-17-2024 Episodic Calculus of urinary tract (20 sources) History of calculus of kidney; Translations: [Personal history of urinary calculi] Onset: 03-29-2019 02-16-2019 Episodic Cancer of prostate (20 sources) Personal history of malignant neoplasm of prostate; Translations: [History of malignant neoplasm of prostate] Onset: 03-09-2022 Episodic Genitourinary symptoms and ill-defined conditions (20 sources) Dysuria; Translations: [Microscopic hematuria] Onset: 03-18-2023 03-01-2020 Episodic Inflammatory conditions of male genital organs (20 sources) Prostatitis; Translations: [Inflammatory disease of prostate, unspecified] Onset: 03-18-2023 05-15-2019 Episodic Melanomas of skin (20 sources) History of malignant melanoma of the skin; Translations: [Personal history of malignant melanoma of skin] Onset: 09-14-2017 03-18-2023 Episodic Neoplasms of unspecified nature or uncertain behavior (2 sources) Neoplastic disease; Translations: [Neoplasm of unspecified behavior of bone, soft tissue, and skin] 04-17-2024 Episodic Nonspecific chest pain (20 sources) Chest pain; Translations: [Other chest pain] Onset: 08-14-2024 08-14-2024 Episodic Other connective tissue disease (20 sources) Triggering of digit; Translations: [Trigger finger, right index finger] Onset: 02-15-2023 02-15-2023 Episodic Other connective tissue disease (20 sources) Acquired trigger finger; Translations: [Trigger finger, unspecified finger] Onset: 03-16-2016 03-18-2023 Episodic Other connective tissue disease (20 sources) Heel pain; Translations: [Pain in left foot] Onset: 03-23-2023 03-23-2023 Episodic Other connective tissue disease (20 sources) Calcaneal spur of left foot; Translations: [Calcaneal spur, left foot] Onset: 03-23-2023 03-23-2023 Episodic Other connective tissue disease (20 sources) Muscle pain; Translations: [Myalgia, unspecified site] Onset: 06-02-2023 06-02-2023 Episodic Other gastrointestinal disorders (20 sources) Constipation; Translations: [Constipation, unspecified] Onset: 02-15-2023 02-15-2023 Episodic Other gastrointestinal disorders (20 sources) Dysphagia; Translations: [Dysphagia, unspecified] Onset: 02-15-2023 02-15-2023 Episodic Other lower respiratory disease (20 sources) Dyspnea; Translations: [Shortness of breath] Onset: 09-19-2024 09-19-2024 Episodic Other nervous system disorders (2 sources) Impairment of balance; Translations: [Other abnormalities of gait and mobility] 04-27-2024 Episodic Other screening for suspected conditions (not mental disorders or infectious disease) (20 sources) Raised prostate specific antigen; Translations: [Elevated prostate specific antigen [PSA]] Onset: 01-29-2020 02-16-2019 Episodic Other skin disorders (2 sources) Inflamed seborrheic keratosis; Translations: [Inflamed seborrheic keratosis] 04-17-2024 Episodic Other skin disorders (20 sources) Ingrowing great toenail; Translations: [Ingrowing nail] Onset: 10-12-2024 10-12-2024 Episodic Residual codes; unclassified (20 sources) Absent kidney; Translations: [Acquired absence of kidney] Onset: 02-15-2023 02-15-2023 Episodic Residual codes; unclassified (20 sources) History of nephrectomy; Translations: [Acquired absence of kidney] Onset: 02-15-2023 02-15-2023 Episodic Residual codes; unclassified (3 sources) Transient alteration of awareness; Translations: [Transient alteration of awareness] Onset: 05-03-2024 04-27-2024 Episodic Residual codes; unclassified (2 sources) Forgetful; Translations: [Other general symptoms and signs] 04-27-2024 Episodic Screening and history of mental health and substance abuse codes (20 sources) Ex-smoker; Translations: [Personal history of nicotine dependence] Onset: 03-18-2023 05-15-2019 Episodic Unclassified (1 source) Contact with and (suspected) exposure to covid-19 Z20.822 Onset: 02-28-2022 Resolved: 02-28-2022 Unclassified (1 source) CONTACT W/AND (SUSP) EXPOS COVID-19; Translations: [CONTACT W/AND (SUSP) EXPOS COVID-19] Onset: 06-17-2021 Viral infection (20 sources) COVID-19; Translations: [Other specified viral infection] Onset: 02-15-2023 02-15-2023 Episodic Results Test Name Value Interpretation Reference Range Facility [facility] 01-04-2025 CNOV Office Visit (RADTSA ) ROCIO PANG ([id number]) 1945 M Date Time Provider Department 01/04/25 10:45 AM Stanley BECK During your visit today, we recorded the following information about you: Temperature Pulse Respiration Blood pressure 97.3 degrees 61/minute 18/minute 132/71 Weight 91.4 kg Dora Gilbert RN 01/04/2025 11:12 AM Signed AUA 8 JOSE Mott G Phillip, MD 01/04/2025 11:12 AM Signed Radiation Oncology - Follow Up Note [...] 28 fractions ELAPSED TIME: 37 days. INTERVAL HISTORY: Doing well denies new problems or concerns. 05/20/22:Doing [...] 05/16/2001 2.1 PSA. (no units) Date Value 01/01/2025 0.26 03/06/2024 0.32 12/24/2023 0.35 ALLERGIES No Known Allergies colchicine 0.6 mg tablet 2 tabs (1.2mg) x1 then 1 tab (0.6mg) x1 1 hour later. metFORMIN (GLUCOPHAGE) 500 mg tablet Take 500 mg by mouth daily with breakfast. Cholecalciferol, Vitamin D3, 50 mcg (2,000 unit) cap Take by mouth. JANUVIA 100 mg tablet TAKE 1 TABLET BY MOUTH EVERY DAY FOR 30 DAYS diphenhydramine HCl (BENADRYL ALLERGY ORAL) Take by mouth. loperamide HCl (IMODIUM ORAL) Take by mouth as needed. atorvastatin (LIPITOR) 40 mg tablet Take 40 mg by mouth once daily. allopurinol (ZYLOPRIM) 100 mg tablet Take 100 mg by mouth once daily. REVIEW OF SYSTEMS: D/N = 4-5/ Hematuria: none Dysuria: none Incontinence: none Urgency: none Catheter use: none Medications to aid urination: y - Total AUA Score: 8 Bowel movement frequency: 1/day Bowel movement quality: normal Blood per emesis left neck: none PHYSICAL EXAM: BP 132/71 Pulse 61 Temp 36.3 ?C (97.3 ?F) Resp 18 Wt 91.4 kg (201 lb 8 oz) SpO2 97% KPS: 100 General appearance: Alert and oriented. No acute distress. Rectal exam def Extremities: No deformities, edema, skin discoloration, clubbing or cyanosis. Lymph Nodes: No cervical lymphadenopathy, No supraclavicular lymphadenopathy, No axillary lymphadenopathy. Skin: Skin color, texture, turgor normal, no suspicious rashes or lesions. 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 Patient continues to do very well. PSA remains low. No significant post radiation related problems. Plan to see patient back in 1 year with PSA. Signed by: Stanley Beck MD cc: Natan Keyes MD Portions of the above note extracted and edited from previous visit as well as active information included in the EMR. Referring Provider: Stanley BECK [[id number]] Allergies As of Date: 01/04/2025 (No Known Allergies) Date Reviewed: 01/04/2025 Reviewed by: Dora Gilbert RN - Fully Assessed Reason for Visit: Prostate Cancer [590] Primary Visit Diagnosis:History of prostate cancer [Z85.46] Order(s):PSA (OUTSIDE) [4595198] Order #: [id number] PROSTATE-SPECIFIC ANTIGEN DIAGNOSTIC [SQPSA] Order #: [id number] FUTURE Prescriptions as of 01/04/2025 - atorvastatin (LIPITOR) 40 mg tablet Take 40 mg by mouth once daily. - colchicine 0.6 mg tablet 2 tabs (1.2mg) x1 then 1 tab (0.6mg) x1 1 hour later. - allopurinol (ZYLOPRIM) 100 mg tablet Take 100 mg by mouth once daily. - metFORMIN (GLUCOPHAGE) 500 mg tablet Take [...] as needed. Problem List As Of Date: 01/04/2025 (None) Level of Service: OFFICE/OUTPATIENT ESTABLISHED LOW MDM 20 MIN [60045] Additional E/M codes: VISIT CPLX INHERENT EANDM ASSOC WITH MED * Disposition: Return in about 1 year (around 01/04/2026). Follow-up and Disposition History for Encount (more content not included)... Normal [facility] MHPT PSA, DIAGNOSTICon 01-01 PROSTATE SPECIFIC ANTIGEN DX 0.26 ng/mL NINF - 4.00 ng/mL [facility]IN[facility] No Panel Informationon 01-01 [facility] Laboratory - Hematology and Cell countson 11-28-2024 HbA1c (Bld) [Mass fraction] 7.8 % [facility] No Panel Informationon 11-28 Interpretation and review of laboratory results Abnormal [facility] XR TOES 2+ VIEWS RIGHTon XR TOES 2+ VIEWS RIGHT FINDINGS: Decreased bone mineralization medial cortex 1st metatarsal head and neighboring 1st proximal phalangeal base with mild overlying soft tissue swelling. Minimal 1st MTP joint space loss. Mild interphalangeal joint space loss. Small plantar and Achilles calcaneal spurs. Prominent plantar arch. IMPRESSION: 1. 1st MTP findings can be consistent with erosive arthritis, specifically gout. 2. No cortical or stress fracture. TRANSCRIBED BY: ELECTRONICALLY SIGNED BY: Addison Donaldson MD Normal Not Available XR Toes - right 2 Viewson 1. 1st MTP findings can be consistent with erosive arthritis, specifically gout. 2. No cortical or stress fracture. TRANSCRIBED BY: ELECTRONICALLY SIGNED BY: Addison Donaldson MD IMAGING FINDINGS: Decreased bone mineralization medial cortex 1st metatarsal head and neighboring 1st proximal phalangeal base with mild overlying soft tissue swelling. Minimal 1st MTP joint space loss. Mild interphalangeal joint space loss. Small plantar and Achilles calcaneal spurs. Prominent plantar arch. IMAGING Addison Donaldson M D - 11/23/2024 FINDINGS: Decreased bone mineralization medial cortex 1st metatarsal head and neighboring 1st proximal phalangeal base with mild overlying soft tissue swelling. Minimal 1st MTP joint space loss. Mild interphalangeal joint space loss. Small plantar and Achilles calcaneal spurs. Prominent plantar arch. IMPRESSION: 1. 1st MTP findings can be consistent with erosive arthritis, specifically gout. 2. No cortical or stress fracture. TRANSCRIBED BY: ELECTRONICALLY SIGNED BY: Addison Donaldson MD [facility] Radiology Study observation (narrative) [facility] XR Toes - right 2 ViewsOrder ed By: Addison Donaldson on 11-23-2024 [facility] Work Phone: NM eliud perf SPECT rest stron 09-18-2024 NM eliud perf SPECT rest str [facility] [place] [address] Nuclear Medicine Report Signed Patient: Rocio Pang MR#: [id number] : 1945 Acct:[id number] Age/Sex: 78 / M ADM Date: 09/18/24 Loc: NM Room: Type: REG CLI Attending Dr: Natan Keyes MD Copies to: MD Natan Weber MD Ordering Provider: Natan Keyes MD Date of Service: 09/18/24 NM/NM eliud [...] were reviewed as well as the computer quantification.? There was uniform uptake of the radiotracer with no perfusion defects identified.? On the gated portion of the study, there was uniform thickening with an overall ejection fraction calculated at 65%.? TID score was within normal limits (0.93). CONCLUSION: 1. Gated spect Sestamibi study is within normal limits. 2. Left ventricular function was preserved. Impression dictated by: Irina Ann M.D.09/18/2024 4:06 PM Dictation Location: [place] [address] Transcribed By: CASI 09/18/24 1606 Dictated By: Irina Ann MD 09/18/24 1604 Signed By: 09/18/24 1606 Normal [facility] No Panel InformationOrdered By: Irina Ann on 09-18-2024 [facility] [place] [address] Cardiac Stress Test Signed Patient: Rocio Pang MR#: [id number] : 1945 Date of Service:0 09/18/24 Age/Sex: 78 / M ADM Date: 5 Loc: [place] Room: Type: [facility] CLI Attending Dr: Natan Keyes MD Copies to: MD Natan Weber MD~ INDICATION FOR STUDY/DIAGNOSIS: Chest pain PROCEDURE: After informed consent was obtained, the patient exercised for minutes and 30 seconds on a Jimenez protocol to their maximum tolerated exercise capacity. The peak heart rate achieved was 160 bpm which was 112% of the age predicted maximum. The test was stopped due to dyspnea. The patient did not develop chest pain during or following the exercise test. The peak blood pressure was 178/80 mmHg. The estimated peak oxygen consumption was 6.4 METs. The overall assessment of the patient's functional capacity is reduced. The baseline ECG revealed normal sinus rhythm. There were 2mm ST depressions noted in inferior leads during exercise that resolved during recovery. There were no dysrhythmias noted during the test. Marinelli Treadmill Score was -6. CONCLUSION: 1 Abnormal ECG exercise stress test. 2. No chest pain. 3. Hemodynamic response was appropriate. 4. 2mm ST depressions noted in inferior leads during exercise that resolved during recovery. 5. Functional capacity was reduced. 6. Marinelli Treadmill Score was -6. Medium risk. 7. Myocardial perfusion imaging report to follow under separate cover. Transcribed By: elena 09/18/24 1534 Dictated By: Irina Ann MD 09/18/24 1534 Signed By: 09/18/24 1538 [facility] Work Phone: ALBUMIN, RANDOM URINE W/CREA TININEon 08-29-2024 ALBUMIN, URINE 0.9 mg/dL Normal See Note: [employer] Comment on above: Result Comment: Mady rivera Range: Reference Range Not established Performed By: #### 6 517, 70713, 1673, 2980 #### [facility] [address], [address] [place] [id number] Shank Boner: Zurdo Ball MD ALBUMIN/CREATININE RATIO, RANDOM URINE 8 mg/g creat Normal <30 [facility] Comment on above: Result Comment: The ADA defines abnormalities in albumin excretion as follows: Albuminuria Category Result (mg/g creatinine) Normal to Mildly increased <30 Moderately increased 30-299 Severely increased > OR = 300 The ADA recommends that at least two of three specimens collected within a 3-6 month period be abnormal before considering a patient to be within a diagnostic category. Performed By: #### 6 517, 96796, 2481, 7310 #### [facility] [address], [address] [place] [id number] Shank Boner: Zurdo Ball MD Creatinine (U) [Mass/Vol] 111 mg/dL Normal 20-320 [facility] Comment on above: Performed By: #### 6 517, 08496, 63, 7600 #### [facility] [place] [address] Shank Boner: Zurdo Ball MD CBC (INCLUDES DIFF/PLT)on Basophils (Bld) [#/Vol] 0.043 10*3/uL Normal 0-200 [facility] Comment on above: Performed By: #### 6 517, 06714, 63, 7600 #### [facility] [place] [address] Shank Boner: Zurdo Ball MD Basophils/100 WBC (Bld) 0.5 % Normal [facility] Comment on above: Performed By: #### 6 517, , 63, 7600 #### [facility] [place] [address] Shank Boner: Zurdo Ball MD COMMENT(S) Normal [facility] Comment on above: Result Comment: Revi ew of peripheral smear confirms automated results. Performed By: #### 6 517, 47913, 63, 7600 #### [facility] [place] [address] Shank Boner: Zurdo Ball MD Eosinophils (Bld) [#/Vol] 0.187 10*3/uL Normal 15-500 [facility] Comment on above: Performed By: #### 6 517, , 63, 7600 #### [facility] [place] [address] Shank Boner: Zurdo Ball MD Eosinophils/100 WBC (Bld) 2.2 % Normal [facility] Comment on above: Performed By: #### 6 517, 26748, 63, 7600 #### [facility] [place] [address] Shank Boner: Zurdo Ball MD Erythrocyte distribution width (RBC) [Ratio] 12.3 % Normal 11.0-15.0 [facility] Comment on above: Performed By: #### 6 517, , 63, 7600 #### [facility] [place] [address] Shank Boner: Zurdo Ball MD Hematocrit (Bld) [Volume fraction] 46.9 % Normal 38.5-50.0 [facility] Comment on above: Performed By: #### 6 517, , 6398, 7600 #### [facility] [place] [address] Shank Boner: Zurdo Ball MD Hemoglobin (Bld) [Mass/Vol] 15.2 g/dL Normal 13.2-17.1 [facility] Comment on above: Performed By: #### 6 517, , 6398, 7600 #### [facility] [place] [address] Shank Boner: Zurdo Ball MD Lymphocytes (Bld) [#/Vol] 1.505 10*3/uL Normal 850-3900 [facility] Comment on above: Performed By: #### 6 517, , 63, 7600 #### [facility] [place] [address] Shank Boner: Zurdo Ball MD Lymphocytes/100 WBC (Bld) 17.7 % Normal [facility] Comment on above: Performed By: #### 6 517, , 6398, 7600 #### [facility] [place] [address] Shank Boner: Zurdo Ball MD MCH (RBC) [Entitic mass] 29.1 pg Normal 27.0-33.0 [facility] Comment on above: Performed By: #### 6 517, , 63, 7600 #### [facility] [place] [address] Shank Boner: Zurdo Ball MD MCHC (RBC) [Mass/Vol] 32.4 g/dL Normal 32.0-36.[address] [facility] Comment on above: Result Comment: For adults, a slight decrease in the calculated MCHC value (in the range of 30 to 32 g/dL) is most likely not clinically significant; however, it should be interpreted with caution in correlation with other red cell parameters and the patient's clinical condition. Performed By: #### 6 517, 73154, 63, 7600 #### [facility] [place] [address] Shank Boner: Zurdo Ball MD MCV (RBC) [Entitic vol] 89.8 fL Normal 80.0-100.0 [facility] Comment on above: Performed By: #### 6 517, 27167, 63, 7600 #### [facility] [place] [address] Shank Boner: Zurdo Ball MD Monocytes (Bld) [#/Vol] 0.672 10*3/uL Normal 200-950 [facility] Comment on above: Performed By: #### 6 517, , 63, 7600 #### [facility] [place] [address] Shank Boner: Zurdo Ball MD Monocytes/100 WBC (Bld) 7.9 % Normal [facility] Comment on above: Performed By: #### 6 , , 63, 7600 #### [facility] [place] [address] Shank Boner: Zurdo Ball MD Neutrophils (Bld) [#/Vol] 6.095 10*3/uL Normal 6348-3019 [facility] Comment on above: Performed By: #### 6 517, 29283, 63, 7600 #### [facility] [place] [address] Shank Boner: Zurdo Ball MD Neutrophils/100 WBC (Bld) 71.7 % Normal [facility] Comment on above: Performed By: #### 6 517, 12175, 63, 7600 #### [facility] of [address], [address] [place] [address] Shank Boner: Zurdo Ball MD Platelet mean volume (Bld) [Entitic vol] 11.2 fL Normal 7.5-12.5 [facility] Comment on above: Performed By: #### 6 517, 25319, 6399, 7600 #### [facility] of [address], [address] [place] [address] Shank Boner: Zurdo Ball MD Platelets (Bld) [#/Vol] 201 10*3/uL Normal 140-400 [facility] Comment on above: Performed By: #### 6 517, 90495, 6399, 7600 #### [facility] of [address], [address] [place] [address] Shank Boner: Zurdo Ball MD RBC (Bld) [#/Vol] 5.22 10*6/uL Normal 4.20-5.80 [facility] Comment on above: Performed By: #### 6 517, 37784, 6399, 7600 #### [facility] [place] [address] Shank Boner: Zurdo Ball MD WBC (Bld) [#/Vol] 8.5 10*3/uL Normal 3.8-10.8 [facility] Comment on above: Performed By: #### 6 517, 44407, 6399, 7600 #### [facility] [place] [address] Shank Boner: Zurdo Ball MD COMPREHENSIVE METABOLIC PANE [facility] 08-29-2024 Albumin [Mass/Vol] 4.6 g/dL Normal 3.6-5.1 [facility] Comment on above: Performed By: #### 6 517, 04031, 6399, 7600 #### [facility] [place] [address] Shank Boner: Zurdo Ball MD Albumin/Globulin [Mass ratio] 1.7 {ratio} Normal 1.0-2.5 [facility] Comment on above: Performed By: #### 6 517, 21562, 6399, 7600 #### [facility] [place] [address] Shank Boner: Zurdo Ball MD ALP [Catalytic activity/Vol] 52 U/L Normal 35-144 [facility] Comment on above: Performed By: #### 6 517, 43357, 6399, 7600 #### [facility] of [address], [address] [place] [address] Shank Boner: Zurdo Ball MD ALT [Catalytic activity/Vol] 19 U/L Normal 9-46 [facility] Comment on above: Performed By: #### 6 517, 07114, 6399, 7600 #### [facility] [place] [address] Shank Boner: Zurdo Ball MD AST [Catalytic activity/Vol] 17 U/L Normal 10-35 [facility] Comment on above: Performed By: #### 6 517, 81398, 6399, 7600 #### [facility] [place] [address] Shank Boner: Zurdo Ball MD Bilirubin [Mass/Vol] 0.7 mg/dL Normal 0.2-1.2 [facility] Comment on above: Performed By: #### 6 517, 02966, 6399, 7600 #### [facility] [place] [address] Shank Boner: Zurdo Ball MD BUN/CREATININE RATIO SEE NOTE: Normal 6-22 [facility] Comment on above: Result Comment: Not Reported: BUN and Creatinine are within reference range. Performed By: #### 6 517, 37638, 6399, 7600 #### [facility] [place] [address] Shank Boner: Zurdo Ball MD Calcium [Mass/Vol] 9.4 mg/dL Normal 8.6-10.3 [facility] Comment on above: Performed By: #### 6 517, 79227, 63, 7600 #### [facility] of [address], [address] [place] [address] Shank Boner: Zurdo Ball MD Chloride [Moles/Vol] 100 mmol/L Normal 98-110 [facility] Comment on above: Performed By: #### 6 517, 97338, 6399, 7600 #### [facility] of [address], [address] [place] [address] Shank Boner: Zurdo Ball MD CO2 [Moles/Vol] 30 mmol/L Normal 20-32 [facility] Comment on above: Performed By: #### 6 517, 71440, 63, 7600 #### [facility] [place] [address] Shank Boner: Zurdo Ball MD Creatinine [Mass/Vol] 1.21 mg/dL Normal 0.70-1.[address] [facility] Comment on above: Performed By: #### 6 517, 99258, 63, 7600 #### [facility] [place] [address] Shank Boner: Zurdo Ball MD GFR/1.73 sq M.predicted among non-blacks MDRD (S/P/Bld) [Vol rate/Area] 61 mL/min/{1.73_m2} Normal > OR = 60 [facility] Comment on above: Performed By: #### 6 517, 19664, 63, 7600 #### [facility] [place] [address] Shank Boner: Zurdo Ball MD Globulin (S) [Mass/Vol] 2.7 g/dL Normal 1.9-3.7 [facility] Comment on above: Performed By: #### 6 517, 40116, 63, 7600 #### [facility] [place] [address] Shank Boner: Zurdo Ball MD Glucose [Mass/Vol] 148 mg/dL High 65-99 [facility] Comment on above: Result Comment: Fasting reference interval For someone without known diabetes, a glucose value >125 mg/dL indicates that they may have diabetes and this should be confirmed with a follow-up test. Performed By: #### 6 517, 54691, 63, 7600 #### [facility] [address], [address] [place] [address] Shank Boner: Zurdo Ball MD Potassium [Moles/Vol] 4.7 mmol/L Normal 3.5-5.[address] [facility] Comment on above: Performed By: #### 6 517, 57152, 6399, 7600 #### [facility] [place] [address] Shank Boner: Zurdo Ball MD Protein [Mass/Vol] 7.3 g/dL Normal 6.1-8.1 [facility] Comment on above: Performed By: #### 6 517, 83522, 63, 7600 #### [facility] [place] [address] Shank Boner: Zurdo Ball MD Sodium [Moles/Vol] 139 mmol/L Normal 135-146 [facility] Comment on above: Performed By: #### 6 517, 62850, 6399, 7600 #### [facility] [place] [address] Shank Boner: Zurdo Ball MD Urea nitrogen [Mass/Vol] 20 mg/dL Normal 7-25 [facility] Comment on above: Performed By: #### 6 517, 62582, 6399, 7600 #### [facility] [place] [address] Shank Boner: Zurdo Ball MD LIPID PANEL, STANDARD Cholesterol [Mass/Vol] 185 mg/dL Normal <200 [facility] Comment on above: Order Comment: FASTI NG:YES FASTING: YES Performed By: #### 6 517, 85983, 6399, 7600 #### [facility] of [address], [address] [place] [address] Shank Boner: Zurdo Ball MD Cholesterol in HDL [Mass/Vol] 52 mg/dL Normal > OR = 40 [facility] Comment on above: Order Comment: FASTI NG:YES FASTING: YES Performed By: #### 6 517, 64700, 6399, 7600 #### [facility] [address], [address] [place] [address] Shank Boner: Zurdo Ball MD Cholesterol in LDL [Mass/Vol] 102 mg/dL High [facility] Comment on above: Order Comment: FASTI NG:YES FASTING: YES Result Comment: Refe rence range: <100 Desirable range <100 mg/dL for primary prevention; <70 mg/dL for patients with CHD or diabetic patients with > or = 2 CHD risk factors. LDL-C is now calculated using the Juan Manuel calculation, which is a validated novel method providing better accuracy than the Friedewald equation in the estimation of LDL-C. Buster SS et al. ABE. 2013;310(19): 7537-4221 (http://education.tamyca.ChangeCorp/faq/UFV904) Performed By: #### 6 517, 88637, 5999, 7600 #### [facility] [address], [address] [place] [address] Shank Boner: Zurdo Ball MD Cholesterol.total/Martha sterol in HDL [Mass ratio] 3.6 {ratio} Normal <5.0 [facility] Comment on above: Order Comment: FASTI NG:YES FASTING: YES Performed By: #### 6 517, 67723, 6399, 7600 #### [facility] [address], [address] [place] [address] Shank Boner: Zurdo Ball MD NON HDL CHOLESTEROL 133 mg/dL (calc) High <130 [facility] Comment on above: Order Comment: FASTI NG:YES FASTING: YES Result Comment: For patients with diabetes plus 1 major ASCVD risk factor, treating to a non-HDL-C goal of <100 mg/dL (LDL-C of <70 mg/dL) is considered a therapeutic option. Performed By: #### 6 517, 05427, 6399, 7600 #### [facility] [address], [address] [place] [address] Shank Boner: Zurdo Ball MD Triglyceride [Mass/Vol] 192 mg/dL High <150 [facility] Comment on above: Order Comment: FASTI NG:YES FASTING: YES Performed By: #### 6 517, 57881, 6399, 7600 #### [facility] [address], [address] [place] [address] Shank Boner: Zurdo Ball MD Laboratory - Hematology and Cell countson 08-14-2024 HbA1c (Bld) [Mass fraction] 7.4 % [facility] No Panel Informationon 08-14 Interpretation and review of laboratory results Abnormal [facility] No Panel Informationon 07-[address] [facility] [address] head/brain wo conon 05-03 CT head/brain wo con [facility] [place] [address] CT Scan Report Signed Patient: Rocio Pang MR#: [id number] : 1945 Acct:[id number] Age/Sex: 78 / M ADM Date: 05/03/24 Loc: CT Room: Type: [facility] Attending Dr: Subha NIÑO Copies to: RENAY Simpson Ordering Provider: RENAY [...] carotid siphon plaque. CT/CT head/brain wo con IMPRESSION: ATROPHY AND SMALL VESSEL ISCHEMIC CHANGES. NO ACUTE INTRACRANIAL ABNORMALITY. Impression dictated by: Danya Lovelace M.D.05/03/2024 10:19 AM Dictation Location: [place] [address] Transcribed By: [facility] 05/03/24 1019 Dictated By: Danya Lovelace MD 05/03/24 1015 Signed By: 05/03/24 1019 Normal [facility] ALL CBC WITH AUTO DIFFon BASOPHILS ABSOLUTE AUTO 0.0 N [facility] Basophils/100 WBC (Bld) 0.5 % 0.2 - 2.0 % [facility] Eosinophils/100 WBC (Bld) 2.9 % 0.9 - 7.0 % [facility] Erythrocyte distribution width (RBC) [Ratio] 12.2 % 11.0 - 15.0 % [facility] Hematocrit (Bld) [Volume fraction] 42.9 % 42.0 - 54.0 % [facility] Hemoglobin (Bld) [Mass/Vol] 14.5 g/dL 14.0 - 18.0 g/dL [facility] IMMATURE GRANULOCYTES ABS AUTO 0.08 High [facility] Immature granulocytes/100 WBC (Bld) 0.9 % High 0.0 - 0.5 % [facility] Interpretation and review of laboratory results Abnormal [facility] LYMPHOCYTES ABSOLUTE AUTO 1.4 [facility] Lymphocytes/100 WBC (Bld) 16.6 % Low 20.5 - 60.0 % [facility] MCH (RBC) [Entitic mass] 30.8 pg 25.9 - 34.0 pg [facility] MCHC (RBC) [Mass/Vol] 33.8 g/dL 29.9 - 35.2 g/dL [facility] MCV (RBC) [Entitic vol] 91.1 fL 80.0 - 94.0 fL [facility] MONOCYTES ABSOLUTE AUTO 0.7 N [facility] Monocytes/100 WBC (Bld) 8.0 % 1.7 - 12.0 % [facility] NEUTROPHILS ABSOLUTE AUTO 6.1 [facility] Neutrophils/100 WBC (Bld) 71.1 % 43.0 - 75.0 % [facility] Platelet mean volume (Bld) [Entitic vol] 10.6 fL 9.5 - 13.5 fL [facility] EO # 0.3 [facility] PLT 187 [facility] RBC 4.71 [facility] WBC 8.6 [facility] No Panel Informationon 04-17 [facility] Type of biopsy: tangential Informed consent: discussed and consent obtained Informed consent comment: The risks and benefits of the biopsy were discussed. Risks include but are not limited to bleeding, infection, scarring, pain, and nerve damage. An opportunity to ask questions prior to the procedure was permitted and all questions were answered. Patient was prepped and draped in usual sterile fashion: area cleansed with alcohol. Anesthesia: the lesion was anesthetized in a standard fashion Anesthetic: 1% lidocaine w/ epinephrine 1-100,000 buffered w/ 8.4% NaHCO3 Instrument used: DermaBlade Hemostasis achieved with: electrodesiccation Outcome: patient tolerated procedure well Outcome comment: The specimen was placed in a prelabeled formalin container to be sent for pathology Post-procedure details: sterile dressing applied and wound care instructions given Post-procedure details comment: Emphasized need to contact clinic for any signs of infection, uncontrollable bleeding, or complications. Dressing type: bandage Additional details: Photo taken Amount of lidocaine used: 1 cc [facility] Ambulatory Visit Summaryon 0 03-10-2024 Ambulatory Visit Summary Ambulatory Visit Summary ROCIO PANG :1945 Visit Date:03/10/2024 Ambulatory Visit Instructions Your Diagnosis Personal history of prostate cancer BPH with urinary obstruction Your Care Team Attending Physician - Bernardo RODGERS MD Primary Care Physician - NATAN KEYES MD [...] PADILLA, Bernardo Khan Where: [facility] Urology Office/Clinic Noteon 03-10-2024 Urology [...] and history for this patient from Dr. Rodgers. I have reviewed and verified the staff [...] TRUS/bx 03/28/20. Completed radiation treatments with Dr. Beck 12/2020. Pt was unable to get [place] [employer] implant due to anatomy. PSA low [...] Information ANA MARIA PADILLA, Bernardo Khan, URL [address] [place] [id number]- Additional Instructions: 1 year w/ PSA Patient Education Benign Prostatic Hyperplasia IBarb, personally scribed for Dr. Rodgers on 03/10/2024 11:22:36. . Documentation recorded by the scribe, Barb Sinclair, accurately reflects the services(s) I performed and decisions made by me. Authenticated by Dr. Rodgers on 03/10/2024 11:30:52. Problem List/Past Medical History [...] Immunizations Vaccine Date Status Comments SARS-CoV-2 mRNA (todianenameran 5y-11y) vac - Not Given Postpone due to refusal Lab Results Ambulatory Point of Care Results Bilirubin Urine Dipstick: Negative (03/10/24 10:45:00) Blood Urine Dipstick: Trace-lysed (03/10/24 10:45:00) Glucose Urine Dipstick: Negative (03/10/24 10:45:00) Ketones Urine Dipstick: Negative (03/10/24 10:45:00) Leukocytes Urine Dipstick: Negative (03/10/24 10:45:00) Nitrite Urine Dipstick: Negative (03/10/24 10:45:00) Protein Urine Dipstick: Negative (03/10/24 10:45:00) Specific [place] Urine Dipstick: >=1.030 (03/10/24 10:45:00) Urine Appearance Urine Dipstick: Clear (03/10/24 10:45:00) Urine Color Urine Dipstick: Yellow (03/10/24 10:45:00) Urobilinogen Urine Dipstick: Normal 0.2-1 EU/dl (03/10/24 10:45:00) pH Urine Dipstick: 5.5 (03/10/24 10:45:00) Normal [facility] Comment on above: Result Comment: Elec tronically Signed By: Bernardo RODGERS MD\.lyle\Date and Time Signed: 03/10/24 11:30 EDT\.br\Electronically Co-Signed By: Barb Sinclair.lyle\Date and Time Co-Signed: 03/10/24 11:23 EDT Erythrocyte distribution wid th Auto (RBC) [Ratio]on 03-06-2024 Erythrocyte distribution width (RBC) [Ratio] 12.7 % 11.0-15.0 [facility] Estimated glomerular filtrat ion rate (GFR) non- Americanon 03-06-2024 GFR/1.73 sq M.predicted among non-blacks MDRD (S/P/Bld) [Vol rate/Area] 55 mL/min/{1.73_m2} Low >=60 [facility] Globulin Calc (S) [Mass/Vol] on 03-06-2024 Globulin (S) [Mass/Vol] 3.7 g/dL F [facility] Hematocrit Auto (Bld) [Volum e fraction]on 03-06-2024 Hematocrit (Bld) [Volume fraction] 40.7 % Low 42.0-54.0 [facility] Hemoglobin [Mass/volume] in Bloodon 03-06-2024 Hemoglobin (Bld) [Mass/Vol] 13.4 g/dL Low 14.0-18.0 [facility] Laboratory - Chemistry and C hemistry - challengeon 03-06-2024 Albumin [Mass/Vol] 3.9 g/dL 3.4-5.0 [facility] ALP [Catalytic activity/Vol] 61 U/L 46-116 [facility] ALT [Catalytic activity/Vol] 30 U/L 16-63 [facility] AST [Catalytic activity/Vol] 20 U/L 15-37 [facility] Bilirubin [Mass/Vol] 0.4 mg/dL 0.2-1.0 [facility] Calcium [Mass/Vol] 9.1 mg/dL 8.5-10.1 [facility] Chloride [Moles/Vol] 104 mmol/L 98-107 [facility] CO2 [Moles/Vol] 28.2 mmol/L 21.0-32.0 [facility] Creatinine [Mass/Vol] 1.26 mg/dL 0.70-1.30 [facility] GFR/1.73 sq M.predicted MDRD (S/P/Bld) [Vol rate/Area] mL/min/{1.73_m2} >=60 [facility] Glucose [Mass/Vol] 145 mg/dL High 74-106 [facility] Magnesium [Mass/Vol] 2.0 mg/dL 1.8-2.4 [facility] Potassium [Moles/Vol] 3.7 mmol/L 3.5-5.1 [facility] Protein [Mass/Vol] 7.6 g/dL 6.4-8.2 [facility] Sodium [Moles/Vol] 140 mmol/L 136-145 [facility] Urate [Mass/Vol] 7.6 mg/dL High 3.5-7.2 [facility] Urea nitrogen [Mass/Vol] 22.0 mg/dL High 7.0-18.0 [facility] Urea nitrogen/Creatinine [Mass ratio] 17.5 mg/mg [facility] Bilirubin Ql (U) Negative NEGATIVE [facility] Glucose (U) [Mass/Vol] Negative NEGATIVE [facility] Ketones Ql (U) Negative NEGATIVE [facility] pH (U) 6.0 [pH] 5.0-9.0 [facility] Specific gravity (U) [Rel density] >=1.030 Abnormal 1.005-1.025 [facility] Urobilinogen Qn (U) 0.2 {Alba'U}/dL 0.2-1.0 [facility] Laboratory - Specimen inform ationon 03-06-2024 Appearance (U) CLEAR CLEAR [facility] Color (U) LT. YELLOW YELLOW [facility] Laboratory - Urinalysison Leukocyte esterase Test strip Ql (U) Negative NEGATIVE [facility] Nitrite Ql (U) Negative NEGATIVE [facility] Protein (U) [Mass/Vol] 8.7 mg/dL <=11.9 [facility] Protein Ql (U) Negative NEG/TRACE [facility] Leukocytes [#/volume] correc jennifer for nucleated erythrocytes in Blood by Automated counon 03-06-2024 WBC corrected for nucl RBC Auto (Bld) [#/Vol] 6.8 10 3/uL 4.0-11.0 [facility] MCH Auto (RBC) [Entitic mass ]on 03-06-2024 MCH (RBC) [Entitic mass] 30.0 pg 25.9-34.0 [facility] MCHC Auto (RBC) [Mass/Vol]on 03-06-2024 MCHC (RBC) [Mass/Vol] 32.9 g/dL 29.9-35.2 [facility] MCV Auto (RBC) [Entitic vol] on 03-06-2024 MCV (RBC) [Entitic vol] 91.1 fL 80.0-94.0 F [facility] No Panel Informationon 03-06 25-Hydroxy Vitamin D Total 36.9 ng/mL [facility] Comment on above: <20 ng/mL Vit D defi cient20-<30 ng/mL Vit D [id number] ng/mL Vit D sufficient>100 ng/mL Potential Toxicity Parathyroid Hormone (Intact) 39 pg/mL [facility] Comment on above: Performed at: [email or web address] [place] [address] [id number] Director: Jose Ramon Arreola PhD, Phone: [phone] Phosphorus Level 3.7 mg/dL 2.6-4.7 [facility] Urine Occult Blood SMALL Abnormal NEGATIVE [facility] Urine Random Creatinine 104.48 mg/dL 20.00-300. 00 [facility] Platelet mean volume Auto (B ld) [Entitic vol]on 03-06-2024 Platelet mean volume (Bld) [Entitic vol] 11.1 fL 9.5-13.5 [facility] Platelets Auto (Bld) [#/Vol] on 03-06-2024 Platelets (Bld) [#/Vol] 180 10 3/uL 150-450 [facility] RBC Auto (Bld) [#/Vol]on RBC (Bld) [#/Vol] 4.47 10 6/uL Low 4.70-6.10 [facility] Serum or plasma albumin/glob ulin mass ratioon 03-06-2024 Albumin/Globulin [Mass ratio] 1.1 {ratio} [facility] Serum or plasma anion gap de terminationon 03-06-2024 Anion gap [Moles/Vol] 11.5 mmol/L [facility] Urine protein/creatinine rat ioon 03-06-2024 Protein/Creatinine (U) [Ratio] 0.08 [facility] PSA (OUTSIDE)on 12-24-2023 [facility] Provider Letteron 12-08-2023 Provider Letter December 08, 2023 ROCIO PANG [address] [place] [address] : 1945 Dear Rocio, /We have been trying to reach you with no success. You have an appointment with Dr. Bernardo Rodgers on 03/17/2024 which will need to be rescheduled since he will be out of the office that day. Please contact the office at the number listed below to get this appointment rescheduled at your earliest convenience. Thank you for your prompt attention to this matter. Sincerely, [facility] [address], [place] [address] [facility] Mohs surgeryon 11-03-2023 Consent obtained: written [place] Protocol: Procedure explained and questions answered to [...] the patient taking prescription anticoagulant and/or aspirin prescribed/recommende d by a physician? No Was the anticoagulation regimen changed prior to Mohs? No Anesthesia: Anesthesia method: local infiltration Local anesthetic: lidocaine 1% WITH epi and sodium bicarbonate Procedure Details: Biopsy accession number: [id number] Date of biopsy: 09/27/2023 Frozen section biopsy [...] hematoxylin and eosin and also immunostained with [place]idget[place]-1. A 3 mm biopsy of adjacent tissue was taken and used to establish a baseline with hematoxylin and eosin and Bridgeton-1 immunostains. The debulk showed melanoma in situ. The specimen was processed using immunostains with [place]-1. Tumor features identified on Mohs section: no [...] considerations per the NCCN guidelines Discussion/Procedural Comments: [facility] Work Phone: [facility] Work Phone: Surgical pathology studyon 0 10-07-2023 Surgical pathology study Pathology report.total SEE COMMENT Dermatopathology Report Case: [id number] Authorizing Provider: Goyo Valladares MD PhD Collected: 10/07/2023 1213 Ordering Location: [facility] Received: 10/07/2023 1213 [facility] Pathologist: Daphney Ho MD Specimen: OUTSIDE BLOCK(S)/SLIDE(S), 3 SLIDES, [facility] #[id number] (BX: 09/27/2023) Path report.final diagnosis SEE COMMENT 3 SLIDES, [facility] #[id number] (BX: 09/27/2023) SKIN, RIGHT FOREHEAD, SHAVE BIOPSY: [...] SKIN. MELANOMA IN SITU. 4.0X2.2CM PREV PATH# [id number], [id number] IRREGULAR PIGMENTED PAPULE. Path report.gross observation SEE COMMENT A. OUTSIDE BLOCK(S)/SLIDE(S). Received for consultation from [facility] are three slides labeled [id number] (BX: 09/27/2023) along with the corresponding pathology report. [facility] Comment on above: Order Comment: Mater ials Received: 3 SLIDES, [facility] #[id number] (BX: 09/27/2023) Alanine aminotransferase [En zymatic activity/volume] in Serum or PlasmaOrdered By: Jillian Edwards on 09-15-2023 ALT [Catalytic activity/Vol] 19 U/L 7-52 [facility] Albumin [Mass/volume] in Ser um or Plasma by Bromocresol green (BCG) dye binding methoOrdered By: Jillian Edwards on 09-15-2023 Albumin BCG dye [Mass/Vol] 4.3 g/dL 3.5-5.7 [facility] Alkaline phosphatase [Enzyma tic activity/volume] in Serum or PlasmaOrdered By: Jillian Edwards on 09-15-2023 ALP [Catalytic activity/Vol] 48 U/L 34-104 [facility] Aspartate aminotransferase [ Enzymatic activity/volume] in Serum or PlasmaOrdered By: Jillian Edwards on 09-15-2023 AST [Catalytic activity/Vol] 19 U/L 13-39 [facility] Bilirubin.total [Mass/volume ] in Serum or PlasmaOrdered By: Jillian Edwards on 09-15-2023 Bilirubin [Mass/Vol] 0.4 mg/dL 0.3-1.0 [facility] Calcium [Mass/volume] in Ser um or PlasmaOrdered By: Jillian Edwards 09-15-2023 Calcium [Mass/Vol] 9.1 mg/dL 8.6-10.3 [facility] Carbon dioxide, total [Moles /volume] in Serum or PlasmaOrdered By: Jillian Edwards on 09-15-2023 CO2 [Moles/Vol] 31.4 mmol/L 21.0-31.0 [facility] Chloride [Moles/volume] in S elias or PlasmaOrdered By: Jillian Edwards on 09-15-2023 Chloride [Moles/Vol] 106 mmol/L 98-107 [facility] Creatinine [Mass/volume] in Serum or PlasmaOrdered By: Jillian Edwards 09-15-2023 Creatinine [Mass/Vol] 1.04 mg/dL 0.70-1.30 [facility] Globulin Calc (S) [Mass/Vol] Ordered By: Jillian Edwards 09-15-2023 Globulin (S) [Mass/Vol] 2.8 g/dL [facility] Glucose [Mass/volume] in Ser um or PlasmaOrdered By: Jillian Edwards on 09-15-2023 Glucose [Mass/Vol] 140 mg/dL 70-100 [facility] Comment on above: ADA recommended refe rence rangeRandom Glucose Reference Range is dependent on time and content of last meal. Glucose of more than 200 mg/dL in a nonstressed, ambulatory subject supports the diagnosis of Diabetes Mellitus. No Panel InformationOrdered By: Jillian Edwards on 09-15-2023 Estimated GFR (CKD-EPI) > 60.0 mL/Min [facility] Creatinine Clearance (Chem N/A [facility] Potassium [Moles/volume] in Serum or PlasmaOrdered By: Jillian Edwards on 09-15-2023 Potassium [Moles/Vol] 4.4 mmol/L 3.5-5.1 [facility] Protein [Mass/volume] in Ser um or PlasmaOrdered By: Jillian Edwards on 09-15-2023 Protein [Mass/Vol] 7.1 g/dL 6.4-8.9 [facility] Serum or plasma albumin/glob ulin mass ratioOrdered By: Jillian Edwards on 09-15-2023 Albumin/Globulin [Mass ratio] 1.5 {ratio} [facility] Serum or plasma anion gap de terminationOrdered By: Jillian Edwards on 09-15-2023 Anion gap [Moles/Vol] 9.0 mmol/L 6.0-15.0 [facility] Sodium [Moles/volume] in Ser um or PlasmaOrdered By: Jillian Edwards on 09-15-2023 Sodium [Moles/Vol] 142 mmol/L 136-145 [facility] Urea nitrogen [Mass/volume] in Serum or PlasmaOrdered By: Jillian Edwards on 09-15-2023 Urea nitrogen [Mass/Vol] 17 mg/dL 03-16 [facility] Alanine aminotransferase [En zymatic activity/volume] in Serum or PlasmaOrdered By: Jillian Edwards on 12-25-2022 ALT [Catalytic activity/Vol] 22 U/L [facility] Albumin [Mass/volume] in Ser um or Plasma by Bromocresol green (BCG) dye binding methoOrdered By: Jillian Edwards on 12-25-2022 Albumin BCG dye [Mass/Vol] 4.3 g/dL 3.5-5.7 [facility] Alkaline phosphatase [Enzyma tic activity/volume] in Serum or PlasmaOrdered By: Jillian Edwards on 12-25-2022 ALP [Catalytic activity/Vol] 44 U/L 34-104 [facility] Aspartate aminotransferase [ Enzymatic activity/volume] in Serum or PlasmaOrdered By: Jillian Edwards on 12-25-2022 AST [Catalytic activity/Vol] 20 U/L 13-39 [facility] Bilirubin Test strip Ql (U)O rdered By: Jillian Edwards on 12-25-2022 Bilirubin Ql (U) Negative Negative [facility] Bilirubin.total [Mass/volume ] in Serum or PlasmaOrdered By: Jillian Edwards on 12-25-2022 Bilirubin [Mass/Vol] 0.7 mg/dL 0.3-1.0 [facility] Calcium [Mass/volume] in Ser um or PlasmaOrdered By: Jillian Edwards 12-25-2022 Calcium [Mass/Vol] 8.7 mg/dL 8.6-10.3 [facility] Carbon dioxide, total [Moles /volume] in Serum or PlasmaOrdered By: Jillian Edwards on 12-25-2022 CO2 [Moles/Vol] 27.0 mmol/L 21.0-31.0 [facility] Chloride [Moles/volume] in S elias or PlasmaOrdered By: Jillian Edwards on 12-25-2022 Chloride [Moles/Vol] 104 mmol/L 98-107 [facility] Color Auto (U)Ordered By: Mihai Edwards on 12-25-2022 Color (U) Yellow Yellow [facility] Creatinine [Mass/volume] in Serum or PlasmaOrdered By: Jillian Edwards on 12-25-2022 Creatinine [Mass/Vol] 1.25 mg/dL 0.70-1.30 [facility] Creatinine [Mass/volume] in UrineOrdered By: Jillian Edwards on 12-25-2022 Creatinine (U) [Mass/Vol] 143.0 mg/dL 14.0-26.0 [facility] Erythrocyte distribution wid th Auto (RBC) [Ratio]Ordered By: Jillian Edwards on 12-25-2022 Erythrocyte distribution width (RBC) [Ratio] 13.5 % 12.0-14.8 [facility] Globulin Calc (S) [Mass/Vol] Ordered By: Jillian Edwards on 12-25-2022 Globulin (S) [Mass/Vol] 2.5 g/dL F [facility] Glucose [Mass/volume] in Ser um or PlasmaOrdered By: Jillian Edwards on 12-25-2022 Glucose [Mass/Vol] 141 mg/dL 70-100 [facility] Comment on above: ADA recommended refe rence rangeRandom Glucose Reference Range is dependent on time and content of last meal. Glucose of more than 200 mg/dL in a nonstressed, ambulatory subject supports the diagnosis of Diabetes Mellitus. Hematocrit Auto (Bld) [Volum e fraction]Ordered By: Jillian Edwards on 12-25-2022 Hematocrit (Bld) [Volume fraction] 44.6 % 38.8-50.0 [facility] Hemoglobin [Mass/volume] in BloodOrdered By: Jillian Edwards on 12-25-2022 Hemoglobin (Bld) [Mass/Vol] 14.8 g/dL 13.0-17.0 [facility] [facility] Ketones Auto test strip (U) [Mass/Vol]Ordered By: Jillian Edwards on 12-25-2022 Ketones (U) [Mass/Vol] Negative Negative [facility] Leukocytes [#/volume] correc jennifer for nucleated erythrocytes in Blood by Automated counOrdered By: Jillian Edwards on 12-25-2022 WBC corrected for nucl RBC Auto (Bld) [#/Vol] 6.4 10*3/uL 4.1-10.5 [facility] MCH Auto (RBC) [Entitic mass ]Ordered By: Jillian Edwards on 12-25-2022 MCH (RBC) [Entitic mass] 29.7 pg 27.5-35.2 [facility] MCHC Auto (RBC) [Mass/Vol]Or dered By: Jillian Edwards on 12-25-2022 MCHC (RBC) [Mass/Vol] 33.3 g/dL 32.5-35.6 [facility] MCV Auto (RBC) [Entitic vol] Ordered By: Jillian Edwards on 12-25-2022 MCV (RBC) [Entitic vol] 89.3 fL 83.5-101 F [facility] Nitrite Test strip Ql (U)Ord ered By: Jillian Edwards on 12-25-2022 Nitrite Ql (U) Negative Negative [facility] No Panel InformationOrdered By: Jillian Edwards on 12-25-2022 Estimated GFR (CKD-EPI) 59.308 mL/Min [facility] Creatinine Clearance (Chem N/A [facility] Parathyrin.intact [Mass/volu me] in Serum or PlasmaOrdered By: Jillian Edwards on 12-25-2022 Parathyrin.intact [Mass/Vol] 75.8 pg/mL 12- [facility] Phosphate [Mass/volume] in S elias or PlasmaOrdered By: Jillian Edwards on 12-25-2022 Phosphate [Mass/Vol] 2.9 mg/dL 3.7-7.2 [facility] Platelet mean volume Auto (B ld) [Entitic vol]Ordered By: Jillian Edwards on 12-25-2022 Platelet mean volume (Bld) [Entitic vol] 9.0 fL 6.6-10.1 [facility] Platelets Auto (Bld) [#/Vol] Ordered By: Jillian Edwards on 12-25-2022 Platelets (Bld) [#/Vol] 165 10*3/uL 150-450 [facility] Potassium [Moles/volume] in Serum or PlasmaOrdered By: Jillian Edwards on 12-25-2022 Potassium [Moles/Vol] 4.1 mmol/L 3.5-5.1 [facility] Protein Auto test strip (U) [Mass/Vol]Ordered By: Jillian Edwards on 12-25-2022 Protein (U) [Mass/Vol] Negative Negative [facility] Protein [Mass/volume] in Ser um or PlasmaOrdered By: Jillian Edwards on 12-25-2022 Protein [Mass/Vol] 6.8 g/dL 6.4-8.9 [facility] Protein [Mass/volume] in Uri neOrdered By: Jillian Edwards on 12-25-2022 Protein (U) [Mass/Vol] 8 mg/dL 0-9 [facility] RBC Auto (Bld) [#/Vol]Ordere d By: Jillian Edwards on 12-25-2022 RBC (Bld) [#/Vol] 5.00 10*6/uL 3.90-5.60 [facility] Serum or plasma albumin/glob ulin mass ratioOrdered By: Jillian Edwards on 12-25-2022 Albumin/Globulin [Mass ratio] 1.7 {ratio} [facility] Serum or plasma anion gap de terminationOrdered By: Jillian Edwards on 12-25-2022 Anion gap [Moles/Vol] 11.1 mmol/L 6.0-15.0 [facility] Sodium [Moles/volume] in Ser um or PlasmaOrdered By: Jillian Edwards on 12-25-2022 Sodium [Moles/Vol] 138 mmol/L 136-145 [facility] Specific gravity Auto test s trip (U) [Rel density]Ordered By: Jillian Edwards on 12-25-2022 Specific gravity (U) [Rel density] 1.019 1.001-1.030 [facility] Urate [Mass/volume] in Serum or PlasmaOrdered By: Jillian Edwards 12-25-2022 Urate [Mass/Vol] 7.6 mg/dL 2.4-7.6 [facility] Urea nitrogen [Mass/volume] in Serum or PlasmaOrdered By: Jillian Edwards on 12-25-2022 Urea nitrogen [Mass/Vol] 18 mg/dL 7-25 [facility] Urine clarity by refractomet ry automatedOrdered By: Jillian Edwards on 12-25-2022 Clarity Refractometry automated (U) Clear Clear [facility] Urine glucose measurement by automated test strip (mass/volume)Ordered By: Jillian Edwards on 12-25-2022 Glucose Auto test strip (U) [Mass/Vol] Normal mg/dL Normal [facility] Urine hemoglobin detection b y automated test stripOrdered By: Jillian Edwards on 12-25-2022 Hemoglobin Auto test strip Ql (U) Negative Negative [facility] Urine leukocyte esterase det ection by automated test stripOrdered By: Jillian Edwards on 12-25-2022 Leukocyte esterase Auto test strip Ql (U) Negative Negative [facility] Urine protein/creatinine rat ioOrdered By: Jillian Edwards on 12-25-2022 Protein/Creatinine (U) [Ratio] 56 mg/g{Cre} 0-200 [facility] Urobilinogen Auto test strip (U) [Mass/Vol]Ordered By: Jillian Edwards on 12-25-2022 Urobilinogen (U) [Mass/Vol] Normal mg/dL Normal [facility] Vitamin D+Metabolites [Mass/ volume] in Serum or PlasmaOrdered By: Jillian Edwards on 12-25-2022 Vitamin D+Metabolites [Mass/Vol] 24.7 ng/mL 30-100 [facility] Comment on above: VITAMIN D STATUS 25( [place])VITAMIN D RANGE (ng/mL) Deficient <20 Insufficient 20 to <30Sufficient 30 to 100Reference: Noemi MF,Bandar CHAUHAN, Gregg MERAZ, et al. Evaluation,treatment, and prevention of vitamin D deficiency; an Endocrine Society clinical practice guideline. JCEM. 2010; 96(7):1911-30. pH Auto test strip (U)Ordere d By: Jillian Edwards on 12-25-2022 pH (U) 5.5 [pH] 5.0-9.0 [facility] COVID/FLU/RSV RT-PCRon 08-28 SARS-CoV-2 (COVID-19) RNA GERMAN+probe Ql (Unsp spec) Negative [facility] Other COVID/FLU/RSV RT-PCR Negative [facility] Other Quick Strepon 08-28-2022 S. pyogenes Org specific cx Ql (Throat) Negative [facility] [employer] (Closed) Other Quick Strep [facility] Other CT CSPINE WO CONon 2 CT CSPINE WO CON EXAMINATION: CT CSPINE WO CON HISTORY: MUSCLE WEAKNESS (GENERALIZED) ; [...] NATHAN URENA Date: 2022-03-11 14:35 Normal [facility] SARS-CoV-2 (COVID-19) RNA NA A+probe Ql (Resp)on 02-28-2022 SARS-CoV-2 (COVID-19) RNA GERMAN+probe Ql (Unsp spec) Negative [facility] Other Covid-19 PCR (CVDTB)on 05-24 SARS-CoV-2 (COVID-19) RNA GERMAN+probe Ql (Unsp spec) Not detected Normal NOT DETECTED [facility] Comment on above: Result Comment: This test is not yet approved or cleared by the [place] FDA. When there are no FDA-approved or cleared tests available, and other criteria are met, FDA can make tests available under an emergency access mechanism called an Emergency Use Authorization (EUA). The EUA for this test is supported by the Log Car[employer] Operator of Health and Human Service's (HHS's) declaration [...] consistent with SARS-CoV-2. Performed By: #### [facility] #### [facility] [address] [place] [address] Dr. Livier Johnson COVID Quick Testingon 2020 Result Negative [facility] Other Vital Signs Date Time Vital Sign Value Performing Clinician Facility 01-04-2025 10:56-0400 Body temperature 97.3 [degF] NA Mel PADILLA Work Phone: [facility] 01-04-2025 10:56-0400 Body weight 91.4 kg NA Mel PADILLA Work Phone: [facility] 01-04-2025 10:56-0400 Diastolic blood pressure 71 mm[Hg] SHIRLEY Beck MD Work Phone: [facility] 01-04-2025 10:56-0400 Heart rate 61 /min SHIRLEY Beck MD Work Phone: [facility] 01-04-2025 10:56-0400 Respiratory rate 18 /min SHIRLEY Beck MD Work Phone: [facility] 01-04-2025 10:56-0400 SaO2% (BldA) [Mass fraction] 97 % SHIRLEY Beck MD Work Phone: [facility] 01-04-2025 10:56-0400 Systolic blood pressure 132 mm[Hg] SHIRLEY Beck MD Work Phone: [facility] 11-28-2024 13:51-0400 Body height 175.3 cm Natan Keyes MD Work Phone: [facility] 11-28-2024 13:51-0400 Body mass index (BMI) [Ratio] 29.68 kg/m2 Natan Keyes MD Work Phone: [facility] 11-28-2024 13:51-0400 Body weight 91.17 kg Natan Keyes MD Work Phone: [facility] 11-28-2024 13:51-0400 Diastolic blood pressure 70 mm[Hg] Natan Keyes MD Work Phone: [facility] 11-28-2024 13:51-0400 Heart rate 73 /min Natan Keyes MD Work Phone: [facility] 11-28-2024 13:51-0400 SaO2% (BldA) [Mass fraction] 92 % Natan Keyes MD Work Phone: [facility] 11-28-2024 13:51-0400 Systolic blood pressure 124 mm[Hg] Natan Keyes MD Work Phone: [facility] 11-23-2024 10:44-0400 Body temperature 97.7 [degF] Yas Proctor [employer] SUPER[employer] Work Phone: [facility] 11-23-2024 10:44-0400 Diastolic blood pressure 70 mm[Hg] Yas Proctor [employer] SUPER[employer]OR Work Phone: [facility] 11-23-2024 10:44-0400 Heart rate 69 /min Yas Proctor [employer] SUPER[employer]OR Work Phone: [facility] 11-23-2024 10:44-0400 SaO2% (BldA) [Mass fraction] 95 % Yas Proctor [employer] SUPERVISOR Work Phone: [facility] 11-23-2024 10:44-0400 Systolic blood pressure 128 mm[Hg] Yas Proctor [employer]BER SUPERVISOR Work Phone: [facility] 10-12-2024 13:35-0500 Body height 175.3 cm Natan Keyes MD Work Phone: [facility] 10-12-2024 13:35-0500 Body mass index (BMI) [Ratio] 29.68 kg/m2 Natan Keyes MD Work Phone: [facility] 02-20-2025 13:35-0500 Body weight 91.17 kg Natan Keyes MD Work Phone: [facility] 10-12-2024 13:35-0500 Diastolic blood pressure 68 mm[Hg] Natan Keyes MD Work Phone: [facility] 10-12-2024 13:35-0500 Heart rate 103 /min Natan Keyes MD Work Phone: [facility] 10-12-2024 13:35-0500 SaO2% (BldA) [Mass fraction] 94 % Natan Keyes MD Work Phone: [facility] 10-12-2024 13:35-0500 Systolic blood pressure 134 mm[Hg] Natan Keyes MD Work Phone: [facility] 10-03-2024 15:15-0500 Body height 175.3 cm Merrill Mcrae DPM Work Phone: [facility] 10-03-2024 15:15-0500 Body mass index (BMI) [Ratio] 29.68 kg/m2 Merrill Mcrae DPM Work Phone: [facility] 10-03-2024 15:15-0500 Body weight 91.17 kg Merrill Mcrae DPM Work Phone: [facility] 10-03-2024 15:15-0500 Respiratory rate 16 /min Merrill Mcrae DPM Work Phone: [facility] 09-19-2024 13:35-0500 Body height 175.3 cm Natan Keyes MD Work Phone: [facility] 09-19-2024 13:35-0500 Body mass index (BMI) [Ratio] 29.68 kg/m2 Natan Keyes MD Work Phone: [facility] 09-19-2024 13:35-0500 Body weight 91.17 kg Natan Keyes MD Work Phone: [facility] 09-19-2024 13:35-0500 Diastolic blood pressure 72 mm[Hg] Natan Keyes MD Work Phone: [facility] 09-19-2024 13:35-0500 Heart rate 89 /min Natan Keyes MD Work Phone: [facility] 09-19-2024 13:35-0500 SaO2% (BldA) [Mass fraction] 93 % Natan Keyes MD Work Phone: [facility] 09-19-2024 13:35-0500 Systolic blood pressure 136 mm[Hg] Natan Keyes MD Work Phone: [facility] 09-13-2024 13:42-0500 Body height 175.3 cm Leonie Espitia [employer] SUPERVISOR Work Phone: [facility] 09-13-2024 13:42-0500 Body mass index (BMI) [Ratio] 29.71 kg/m2 Leonie Espitia [employer] SUPERVISOR Work Phone: [facility] 09-13-2024 13:42-0500 Body weight 91.26 kg Leonie Espitia [employer]BER SUPERVISOR Work Phone: [facility] 09-13-2024 13:42-0500 Diastolic blood pressure 82 mm[Hg] Leonie Espitia [employer]BER SUPERVISOR Work Phone: [facility] 09-13-2024 13:42-0500 Heart rate 106 /min Leonie Espitia TIMBER SUPERVISOR Work Phone: [facility] 09-13-2024 13:42-0500 Respiratory rate 16 /min Leonie Espitia [employer]BER SUPERVISOR Work Phone: [facility] 09-13-2024 13:42-0500 SaO2% (BldA) [Mass fraction] 96 % Leonie Espitia [employer]BER SUPERVISOR Work Phone: [facility] 09-13-2024 13:42-0500 Systolic blood pressure 138 mm[Hg] Leonie Espitia TIMBER SUPERVISOR Work Phone: [facility] 09-05-2024 09:25-0500 Body height 175.3 cm Merrill Mcrae DPM Work Phone: [facility] 09-05-2024 09:25-0500 Body mass index (BMI) [Ratio] 29.39 kg/m2 Merrill Mcrae DPM Work Phone: [facility] 09-05-2024 09:25-0500 Body weight 90.27 kg Merrill Ever DPM Work Phone: [facility] 09-05-2024 09:25-0500 Respiratory rate 16 /min Merrill Brown DPM Work Phone: [facility] 08-18-2024 09:42-0500 Body temperature 98.4 [degF] Natan Keyes MD Work Phone: [facility] 08-18-2024 09:42-0500 Diastolic blood pressure 65 mm[Hg] Natan Keyes MD Work Phone: [facility] 08-18-2024 09:42-0500 Heart rate 63 /min Natan Keyes MD Work Phone: [facility] 08-18-2024 09:42-0500 Respiratory rate 18 /min Natan Keyes MD Work Phone: [facility] 08-18-2024 09:42-0500 SaO2% (BldA) [Mass fraction] 96 % Natan Keyes MD Work Phone: [facility] 08-18-2024 09:42-0500 Systolic blood pressure 141 mm[Hg] Natan Keyes MD Work Phone: [facility] 08-14-2024 09:41-0500 Body height 175.3 cm Natan Keyes MD Work Phone: [facility] 08-14-2024 09:41-0500 Body mass index (BMI) [Ratio] 29.39 kg/m2 Natan Keyes MD Work Phone: [facility] 08-14-2024 09:41-0500 Body weight 90.27 kg Natan Keyes MD Work Phone: [facility] 08-14-2024 09:41-0500 Diastolic blood pressure 64 mm[Hg] Natan Keyes MD Work Phone: [facility] 08-14-2024 09:41-0500 Heart rate 85 /min Natan Keyse MD Work Phone: [facility] 08-14-2024 09:41-0500 SaO2% (BldA) [Mass fraction] 93 % Natan Keyes MD Work Phone: [facility] 08-14-2024 09:41-0500 Systolic blood pressure 124 mm[Hg] Natan Keyes MD Work Phone: [facility] 04-27-2024 15:06-0400 Body mass index (BMI) [Ratio] 29.15 kg/m2 Subha Knight [employer] SUPERVISOR Work Phone: [facility] 04-27-2024 15:06-0400 Body weight 89.54 kg Subha Knight [employer]BER SUPERVISOR Work Phone: [facility] 04-27-2024 15:06-0400 Diastolic blood pressure 70 mm[Hg] Subha Knight [employer]BER SUPERVISOR Work Phone: [facility] 04-27-2024 15:06-0400 Heart rate 76 /min Subha Val [employer]BER SUPERVISOR Work Phone: [facility] 04-27-2024 15:06-0400 Respiratory rate 17 /min Subha [place] [employer] SUPERVISOR Work Phone: [facility] 04-27-2024 15:06-0400 SaO2% (BldA) [Mass fraction] 95 % Subha Knight TIMBER SUPERVISOR Work Phone: [facility] 04-27-2024 15:06-0400 Systolic blood pressure 130 mm[Hg] Subha Knight TIMBER SUPERVISOR Work Phone: [facility] 03-15-2024 09:13-0400 Body height 175.26 cm [facility] 03-15-2024 09:13-0400 Body mass index (BMI) [Ratio] 29.4 kg/m2 [facility] 03-15-2024 09:13-0400 Body temperature 96.7 [degF] [facility] 03-15-2024 09:13-0400 Body weight 90.32 kg [facility] 03-15-2024 09:13-0400 Diastolic blood pressure 70 mm[Hg] [facility] 03-15-2024 09:13-0400 Heart rate 64 /min [facility] 03-15-2024 09:13-0400 Respiratory rate 16 /min [facility] 03-15-2024 09:13-0400 SaO2% (BldA) [Mass fraction] 98 % [facility] 03-15-2024 09:13-0400 Systolic blood pressure 125 mm[Hg] [facility] 03-10-2024 10:49-0400 Blood Pressure Location Bernardo RODGERS [facility] 03-10-2024 10:49-0400 Diastolic blood pressure 76 mm[Hg] Bernardoclaire RODGERS [facility] 03-10-2024 10:49-0400 Heart rate 71 /min Bernardoclaire RODGERS [facility] 03-10-2024 10:49-0400 Respiratory rate 16 /min Bernardo RODGERS [facility] 03-10-2024 10:49-0400 Systolic blood pressure 97 mm[Hg] Bernardo RODGERS [facility] 01-24-2024 13:16-0400 Body height 175.26 cm [facility] 01-24-2024 13:16-0400 Body mass index (BMI) [Ratio] 29.7 kg/m2 [facility] 01-24-2024 13:16-0400 Body temperature 98.2 [degF] [facility] 01-24-2024 13:16-0400 Body weight 91.28 kg [facility] 01-24-2024 13:16-0400 Heart rate 76 /min [facility] 01-24-2024 13:16-0400 Respiratory rate 18 /min [facility] 01-24-2024 13:16-0400 SaO2% (BldA) [Mass fraction] 92 % [facility] 12-29-2023 10:16-0400 Body temperature 97.39 [degF] SHIRLEY Beck MD Work Phone: [facility] 12-29-2023 10:16-0400 Body weight 91.5 kg SHIRLEY Beck MD Work Phone: [facility] 12-29-2023 10:16-0400 Diastolic blood pressure 79 mm[Hg] SHIRLEY Beck MD Work Phone: [facility] 12-29-2023 10:16-0400 Heart rate 67 /min SHIRLEY Beck MD Work Phone: [facility] 12-29-2023 10:16-0400 Respiratory rate 18 /min SHIRLEY Beck MD Work Phone: [facility] 12-29-2023 10:16-0400 SaO2% (BldA) [Mass fraction] 96 % SHIRLEY Beck MD Work Phone: [facility] 12-29-2023 10:16-0400 Systolic blood pressure 156 mm[Hg] SHIRLEY Beck MD Work Phone: [facility] 11-03-2023 08:32-0400 Diastolic blood pressure 75 mm[Hg] Goyo Valladares MD PhD Work Phone: [facility] 11-03-2023 08:32-0400 Heart rate 67 /min Goyo Valladares MD PhD Work Phone: [facility] 11-03-2023 08:32-0400 Systolic blood pressure 150 mm[Hg] Goyo Valladares MD PhD Work Phone: [facility] 09-15-2023 08:40-0500 Body height 175.26 cm Jillian Hokarly Other [facility] Other 09-15-2023 08:40-0500 Body mass index (BMI) [Ratio] 29.21 kg/m2 Jillian Hos Other [facility] Other 09-15-2023 08:40-0500 Body temperature 96.1 [degF] Jillian Hos Other [facility] Other 09-15-2023 08:40-0500 Body weight 89.72 kg Jillian Hos Other [facility] Other 09-15-2023 08:40-0500 Diastolic blood pressure 72 mm[Hg] Jillian Hos Other [facility] Other 09-15-2023 08:40-0500 Respiratory rate 18 /min Jillian Hos Other [facility] Other 09-15-2023 08:40-0500 SaO2% (BldA) [Mass fraction] 97 % Jillian Edwards Other [facility] Other 09-15-2023 08:40-0500 Systolic blood pressure 128 mm[Hg] Jillian Hos Other [facility] Other 03-05-2023 12:15-0400 Body height 175.26 cm Chuck Hamm Other [facility] Other 03-05-2023 12:15-0400 Body mass index (BMI) [Ratio] 28.68 kg/m2 Chuck Thompsonky Other [facility] Other 03-05-2023 12:15-0400 Body weight 88.09 kg Chuck Hamm Other [facility] Other 03-05-2023 12:15-0400 SaO2% (BldA) [Mass fraction] 98 % Chuck Hamm Other [facility] Other 02-27-2023 10:35-0400 Body height 175.26 cm Karine Torres Other [facility] Other 02-27-2023 10:35-0400 Body mass index (BMI) [Ratio] 29.65 kg/m2 Karine Melissa Other [facility] Other 02-27-2023 10:35-0400 Body temperature 98.3 [degF] Karine Melissa Other [facility] Other 02-27-2023 10:35-0400 Body weight 91.08 kg Karine Melissa Other [facility] Other 02-27-2023 10:35-0400 Diastolic blood pressure 69 mm[Hg] Karine Melissa Other [facility] Other 02-27-2023 10:35-0400 Respiratory rate 18 /min Karine Melissa Other [facility] Other 02-27-2023 10:35-0400 SaO2% (BldA) [Mass fraction] 94 % Karine Melissa Other [facility] Other 02-27-2023 10:35-0400 Systolic blood pressure 135 mm[Hg] Karine Melissa Other [facility] Other 01-20-2023 11:20-0400 Body height 175.26 cm Jillian Edwards Other [facility] Other 01-20-2023 11:20-0400 Body mass index (BMI) [Ratio] 29.3 kg/m2 Jillian Edwards Other [facility] Other 01-20-2023 11:20-0400 Body temperature 97.2 [degF] Jillian Edwards Other [facility] Other 01-20-2023 11:20-0400 Body weight 89.99 kg Jillian Edwards Other [facility] Other 01-20-2023 11:20-0400 Diastolic blood pressure 74 mm[Hg] Jillian Edwards Other [facility] Other 01-20-2023 11:20-0400 Respiratory rate 18 /min Jillian Edwards Other [facility] Other 01-20-2023 11:20-0400 SaO2% (BldA) [Mass fraction] 96 % Jillian Edwards Other [facility] Other 01-20-2023 11:20-0400 Systolic blood pressure 124 mm[Hg] Jillian Edwards Other [facility] Other 12-31-2022 13:21-0400 Body temperature 97.5 [degF] SHIRLEY Beck MD Work Phone: [facility] 12-31-2022 13:21-0400 Body weight 92.81 kg SHIRLEY Beck MD Work Phone: [facility] 12-31-2022 13:21-0400 Diastolic blood pressure 74 mm[Hg] SHIRLEY Beck MD Work Phone: [facility] 12-31-2022 13:21-0400 Heart rate 69 /min SHIRLEY Beck MD Work Phone: [facility] 12-31-2022 13:21-0400 Respiratory rate 18 /min SHIRLEY Beck MD Work Phone: [facility] 12-31-2022 13:21-0400 SaO2% (BldA) [Mass fraction] 97 % SHIRLEY Beck MD Work Phone: [facility] 12-31-2022 13:21-0400 Systolic blood pressure 152 mm[Hg] SHIRLEY Beck MD Work Phone: [facility] 08-28-2022 10:30-0500 Body height 175.26 cm Karine Torres Other [facility] Other 08-28-2022 10:30-0500 Body mass index (BMI) [Ratio] 28.79 kg/m2 Karine Torres Other [facility] Other 08-28-2022 10:30-0500 Body temperature 99.3 [degF] Karine Melissa Other [facility] Other 08-28-2022 10:30-0500 Body weight 88.45 kg Karine Melissa Other [facility] Other 08-28-2022 10:30-0500 Respiratory rate 18 /min Karine Romanmond Other [facility] Other 08-28-2022 10:30-0500 SaO2% (BldA) [Mass fraction] 97 % Karine Torres Other [facility] Other 06-24-2022 11:00-0400 Body height 175.26 cm Jillian Edwards Other [facility] Other 06-24-2022 11:00-0400 Body mass index (BMI) [Ratio] 29.86 kg/m2 Jillian Edwards Other [facility] Other 06-24-2022 11:00-0400 Body temperature 96.7 [degF] Jillian Edwards Other [facility] Other 06-24-2022 11:00-0400 Body weight 91.72 kg Jillian Edwards Other [facility] Other 06-24-2022 11:00-0400 Diastolic blood pressure 67 mm[Hg] Jillian Edwards Other [facility] Other 06-24-2022 11:00-0400 Respiratory rate 18 /min Jillian Edwards Other [facility] Other 06-24-2022 11:00-0400 SaO2% (BldA) [Mass fraction] 96 % Jillian Edwards Other [facility] Other 06-24-2022 11:00-0400 Systolic blood pressure 136 mm[Hg] Jillian Edwards Other [facility] Other 03-09-2022 10:02-0400 Blood Pressure Location Bernardo RODGERS [facility] 03-09-2022 10:02-0400 Diastolic blood pressure 68 mm[Hg] Bernardo RODGERS [facility] 03-09-2022 10:02-0400 Heart rate 68 /min Bernardo RODGERS [facility] 03-09-2022 10:02-0400 Systolic blood pressure 136 mm[Hg] Bernardo RODGERS [facility] 03-06-2022 10:45-0400 Body height 175.26 cm Chuck Hamm Other [facility] Other 03-06-2022 10:45-0400 Body mass index (BMI) [Ratio] 29.18 kg/m2 Chuck Hamm Other [facility] Other 03-06-2022 10:45-0400 Body weight 89.63 kg Chuck Hamm Other [facility] Other 03-06-2022 10:45-0400 Diastolic blood pressure 68 mm[Hg] Chuck Hamm Other [facility] Other 03-06-2022 10:45-0400 SaO2% (BldA) [Mass fraction] 95 % Chuck Hamm Other [facility] Other 03-06-2022 10:45-0400 Systolic blood pressure 126 mm[Hg] Chuck Hamm Other [facility] Other 02-28-2022 10:30-0400 Body height 175.26 cm Karine Torres Other [facility] Other 02-28-2022 10:30-0400 Body mass index (BMI) [Ratio] 28.79 kg/m2 Karine Torres Other [facility] Other 02-28-2022 10:30-0400 Body temperature 98.4 [degF] Karine Torres Other [facility] Other 02-28-2022 10:30-0400 Body weight 88.45 kg Karine Torres Other [facility] Other 02-28-2022 10:30-0400 Respiratory rate 18 /min Karine Torres Other [facility] Other 02-28-2022 10:30-0400 SaO2% (BldA) [Mass fraction] 96 % Karine Torres Other [facility] Other 10-17-2021 13:00-0500 Body height 175.26 cm Chuck Thompsonky Other [facility] Other 10-17-2021 13:00-0500 Body mass index (BMI) [Ratio] 30.03 kg/m2 Chuck Hansel Other [facility] Other 10-17-2021 13:00-0500 Body weight 92.26 kg Chuck Hamm Other [facility] Other 10-17-2021 13:00-0500 Diastolic blood pressure 70 mm[Hg] Chuck Hamm Other [facility] Other 10-17-2021 13:00-0500 SaO2% (BldA) [Mass fraction] 98 % Chuck Hamm Other [facility] Other 10-17-2021 13:00-0500 Systolic blood pressure 118 mm[Hg] Chuck Hamm Other [employer] Other 06-14-2021 10:00-0400 Body height 175.26 cm Jenn Thomas Other [employer] Other 05-23-2021 13:30-0400 Body height 175.26 cm Karine Romanmond Other [employer] Other 05-23-2021 13:30-0400 Body mass index (BMI) [Ratio] 30.27 kg/m2 Karine Torres Other [employer] Other 05-23-2021 13:30-0400 Body temperature 97.1 [degF] Karine Torres Other [employer] Other 05-23-2021 13:30-0400 Body weight 92.99 kg Karine Torres Other [employer] Other 05-23-2021 13:30-0400 Respiratory rate 16 /min Karine Torres Other [employer] Other 05-23-2021 13:30-0400 SaO2% (BldA) [Mass fraction] 94 % Karine Torres Other [employer] Other Encounters Encounter Date Encounter Type Care Provider Facility Start: 02-28-2025 End: 02-28-2025 Bamboo flowsheet Pino Eric PATIENT OMBUDSPERSON [facility] Start: 02-28-2025 End: 02-28-2025 Bamboo flowsheet Pino Eric PATIENT OMBUDSPERSON [facility] Start: 02-28-2025 End: 02-28-2025 ambulatory Pino Eric PATIENT OMBUDSPERSON [facility] Comment on above: Pain, neck (Primary Dx); Cervical paraspinal muscle spasm Start: 02-23-2025 ambulatory Natan Keyes MD Facilit y:[facility] Start: 02-22-2025 End: 02-22-2025 Bamboo flowsheet Elicia Terrazas PT Work Phone: [facility] Start: 02-22-2025 End: 02-22-2025 Bamboo flowsheet Elicia Terrazas PT Work Phone: [facility] Start: 02-22-2025 End: 02-22-2025 ambulatory Elicia Case Courtneyyousuf PT Work Phone: [facility] Comment on above: Pain, neck (Primary Dx); Cervical paraspinal muscle spasm Start: 02-12-2025 End: 02-12-2025 Bamboo flowsheet Pino Brink PATIENT OMBUDSPERSON [facility] Start: 02-12-2025 End: 02-12-2025 Bamboo flowsheet Pino Brink PATIENT OMBUDSPERSON [facility] Start: 02-12-2025 End: 02-13-2025 Telephone encounter Natan Keyes MD Work Phone: [facility] Start: 02-12-2025 End: 02-12-2025 ambulatory Pino Brink PATIENT OMBUDSPERSON [facility] Comment on above: Acute low back pain without sciatica, unspecified back pain laterality (Primary Dx); Lumbar paraspinal muscle spasm; Acute left lumbar radiculopathy Start: 02-05-2025 End: 02-05-2025 Bamboo flowsheet Pino Brink PATIENT OMBUDSPERSON [facility] Start: 02-05-2025 End: 02-05-2025 Bamboo flowsheet Pino Brink PATIENT OMBUDSPERSON [facility] Start: 02-05-2025 End: 02-05-2025 ambulatory Pino Brink PATIENT OMBUDSPERSON [facility] Comment on above: Acute low back pain without sciatica, unspecified back pain laterality (Primary Dx); Lumbar paraspinal muscle spasm Start: 01-17-2025 End: 01-17-2025 ambulatory Charly Brown PATIENT OMBUDSPERSON [facility] Comment on above: Acute low back pain without sciatica, unspecified back pain laterality (Primary Dx); Lumbar paraspinal muscle spasm; Acute left lumbar radiculopathy Start: 01-17-2025 End: 01-17-2025 Bamboo flowsheet Charly Brown PATIENT OMBUDSPERSON [facility] Start: 01-17-2025 End: 01-17-2025 Bamboo flowsheet Charly Brown PATIENT OMBUDSPERSON [facility] Start: 01-12-2025 End: 01-12-2025 ambulatory MARILYN OCHOA Not Available Start: 01-10-2025 End: 01-10-2025 ambulatory Pino Eric PATIENT OMBUDSPERSON [facility] Comment on above: Acute low back pain without sciatica, unspecified back pain laterality (Primary Dx); Lumbar paraspinal muscle spasm; Acute left lumbar radiculopathy Start: 01-10-2025 End: 01-10-2025 Bamboo flowsheet Pino Eric PATIENT OMBUDSPERSON [facility] Start: 01-10-2025 End: 01-10-2025 Bamboo flowsheet Pino Eric PATIENT OMBUDSPERSON [facility] Start: 01-04-2025 End: 01-04-2025 ambulatory NATAN KEYES Facility:[facility] Start: 01-04-2025 End: 01-04-2025 Office outpatient visit 15 minutes G Yobani Beck MD Work Phone: Radiation Oncology Comment on above: History of prostate cancer (Primary Dx) Start: 01-03-2025 End: 01-03-2025 ambulatory Pino Eric PATIENT OMBUDSPERSON [facility] Comment on above: Acute low back pain without sciatica, unspecified back pain laterality (Primary Dx); Lumbar paraspinal muscle spasm; Acute left lumbar radiculopathy Start: 01-03-2025 End: 01-03-2025 Bamboo flowsheet Pino Eric PATIENT OMBUDSPERSON [facility] Start: 01-03-2025 End: 01-03-2025 Bamboo flowsheet Pino Eric PATIENT OMBUDSPERSON [facility] Start: 01-01-2025 End: 01-01-2025 Clinisync Result Encounter Generic External Data Provider [facility] Unsolicited Start: 01-01-2025 End: 01-01-2025 Clinisync Result Encounter Generic External Data Provider [facility] External Department Unsolicited Start: 12-26-2024 End: 12-26-2024 Bamboo flowsheet Pino Brink PATIENT OMBUDSPERSON [facility] Start: 12-26-2024 End: 12-26-2024 Bamboo flowsheet Pino Brink PATIENT OMBUDSPERSON [facility] Start: 12-26-2024 End: 12-26-2024 ambulatory Pino Brink PATIENT OMBUDSPERSON [facility] Comment on above: Acute low back pain without sciatica, unspecified back pain laterality (Primary Dx); Lumbar paraspinal muscle spasm; Acute left lumbar radiculopathy Start: 12-18-2024 End: 12-18-2024 Bamboo flowsheet Pino Brink PATIENT OMBUDSPERSON [facility] Start: 12-18-2024 End: 12-18-2024 Bamboo flowsheet Pino Brink PATIENT OMBUDSPERSON [facility] Start: 12-18-2024 End: 12-18-2024 ambulatory Pino Brink PATIENT OMBUDSPERSON [facility] Comment on above: Acute low back pain without sciatica, unspecified back pain laterality (Primary Dx); Lumbar paraspinal muscle spasm; Acute left lumbar radiculopathy Start: 12-15-2024 End: 12-15-2024 Bamboo flowsheet Pino Brink PATIENT OMBUDSPERSON [facility] Start: 12-15-2024 End: 12-15-2024 Bamboo flowsheet Pino Brink PATIENT OMBUDSPERSON [facility] Start: 12-15-2024 End: 12-15-2024 ambulatory Pino Brink PATIENT OMBUDSPERSON [facility] Comment on above: Acute low back pain without sciatica, unspecified back pain laterality (Primary Dx); Lumbar paraspinal muscle spasm; Acute left lumbar radiculopathy Start: 12-11-2024 End: 12-11-2024 Bamboo flowsheet Pino Brink PATIENT OMBUDSPERSON [facility] Start: 12-11-2024 End: 12-11-2024 Bamboo flowsheet Pino Brink PATIENT OMBUDSPERSON [facility] Start: 12-11-2024 End: 12-11-2024 ambulatory Pino Brink PATIENT OMBUDSPERSON [facility] Comment on above: Acute low back pain without sciatica, unspecified back pain laterality (Primary Dx); Lumbar paraspinal muscle spasm; Acute left lumbar radiculopathy; Low back pain with left-sided sciatica, unspecified back pain laterality, unspecified chronicity Start: 12-06-2024 End: 12-06-2024 Bamboo flowsheet Pino Eric PATIENT OMBUDSPERSON [facility] Start: 12-06-2024 End: 12-06-2024 Bamboo flowsheet Pino Eric PATIENT OMBUDSPERSON [facility] Start: 12-06-2024 End: 12-06-2024 ambulatory Pino Eric PATIENT OMBUDSPERSON [facility] Comment on above: Acute low back pain without sciatica, unspecified back pain laterality (Primary Dx); Lumbar paraspinal muscle spasm; Acute left lumbar radiculopathy; Low back pain with left-sided sciatica, unspecified back pain laterality, unspecified chronicity Start: 12-04-2024 End: 12-04-2024 Bamboo flowsheet Marilyn Ochoa PT [facility] Start: 12-04-2024 End: 12-04-2024 Bamboo flowsheet Marilyn Ochoa PT [facility] Start: 12-04-2024 End: 12-04-2024 ambulatory Marilyn Ochoa PT [facility] Comment on above: Acute low back pain without sciatica, unspecified back pain laterality (Primary Dx) Start: 11-28-2024 End: 11-28-2024 Office outpatient visit 25 minutes Natan Keyes MD Work Phone: [facility] Comment on above: Acute gout involving toe of right foot, unspecified cause (Primary Dx); Acute low back pain without sciatica, unspecified back pain laterality; Type 2 diabetes mellitus with chronic kidney disease, with long-term current use of insulin, unspecified CKD stage (CMS/HCC); Type 2 diabetes mellitus without complication, without long-term current use of insulin; Ingrown right big toenail Start: 11-28-2024 End: 11-28-2024 ambulatory NATAN KEYES Not Available Start: 11-23-2024 End: 11-23-2024 Telephone encounter Yas Proctor NP Work Phone: [facility] Start: 11-23-2024 End: 11-23-2024 Office outpatient visit 25 minutes Yas Proctor NP Work Phone: [facility] Comment on above: Great toe pain, righ t (Primary Dx); Hx of gout Start: 11-23-2024 End: 11-23-2024 ambulatory YAS PROCTOR Not Available Start: 11-05-2024 End: 11-05-2024 ambulatory ZEKE ALDRICH Not Available Start: 10-12-2024 End: 10-12-2024 Bamboo flowsheet Natan Keyes MD Work Phone: [facility] Start: 10-12-2024 End: 10-12-2024 Bamboo flowsheet Natan Keyes MD Work Phone: [facility] Start: 10-12-2024 End: 10-12-2024 ambulatory NATAN KEYES Not Available Start: 10-12-2024 End: 10-12-2024 Office outpatient visit 25 minutes Natan Keyes MD Work Phone: [facility] Comment on above: Gouty arthritis of r ight great toe (Primary Dx); Acute gout, unspecified cause, unspecified site; Ingrown right big toenail Start: 10-03-2024 End: 10-03-2024 Office outpatient visit 15 minutes Merrill Mcrae DPM Work Phone: [facility] Comment on above: Acute gout of right foot, unspecified cause (Primary Dx); Type 2 diabetes mellitus without complication, unspecified whether longwall shearer operator insulin use ([facility]) Start: 10-03-2024 End: 10-03-2024 ambulatory MERRILL MCRAE Not Available Start: 10-03-2024 End: 10-03-2024 Bamboo flowsjens Mcrae DPM Work Phone: [facility] Start: 10-03-2024 End: 10-03-2024 Bamboo flowsheet Merrill Mcrae DPM Work Phone: [facility] Start: 09-29-2024 End: 09-29-2024 ambulatory JENNIFFER SAUNDERS Facility:[facility] Start: 09-29-2024 End: 09-29-2024 Patient encounter procedure JENNIFFER SAUNDERS [facility] Start: 09-19-2024 End: 09-19-2024 Office outpatient visit 25 minutes Natan Keyes MD Work Phone: [facility] Comment on above: Shortness of breath (Primary Dx); TIA (transient ischemic attack); Subcortical microvascular ischemic occlusive disease Start: 09-19-2024 End: 09-19-2024 ambulatory NATAN KEYES Not Available Start: 09-18-2024 Non-patient / Non-visit Natan Keyes MD Work Phone: [facility] Work Phone: Start: 09-18-2024 End: 09-18-2024 Patient encounter procedure Natan Keyes MD Work Phone: [facility] Work Phone: Start: 09-18-2024 End: 09-18-2024 ambulatory Natan Keyes MD Work Phone: [facility] Work Phone: Start: 09-13-2024 End: 09-13-2024 Bamboo flowsheet Leonie Espitia TIMBER SUPERVISOR Work Phone: [facility] Start: 09-13-2024 End: 09-13-2024 Bamboo flowsheet Leonie Espitia TIMBER SUPERVISOR Work Phone: [facility] Start: 09-13-2024 End: 09-13-2024 ambulatory LEONIE ESPITIA Not Available Start: 09-13-2024 End: 09-13-2024 Office outpatient visit 25 minutes Leonie Espitia TIMBER SUPERVISOR Work Phone: [facility] Comment on above: Acute gout, unspecif ied cause, unspecified site (Primary Dx); Age-related cognitive decline; Malignant neoplasm of prostate (CMS/HCC); Type 2 diabetes mellitus with other specified complication (CMS/HCC); Hyperlipidemia, unspecified (CMS/HCC); Malignant melanoma of other part of trunk (CMS/HCC); Type 2 diabetes mellitus with diabetic chronic kidney disease (CMS/HCC); Chronic kidney disease, stage 2 (mild) Start: 09-05-2024 End: 09-05-2024 Bamboo flowsheet Merrill Mcrae DPM Work Phone: [facility] Start: 09-05-2024 End: 09-05-2024 Bamboo flowsheet Merrill Mcrae DPM Work Phone: [facility] Start: 09-05-2024 End: 09-05-2024 ambulatory MERRILL MCRAE Not Available Start: 09-05-2024 End: 09-05-2024 Office outpatient visit 15 minutes Merrill Mcrae DPM Work Phone: [facility] Comment on above: Plantar fasciitis (P rimary Dx); Type 2 diabetes mellitus without complication, unspecified whether nursing home insulin use (CMS/[facility]); Pain due to onychomycosis of toenails of both feet; Contracture of left ankle Start: 08-18-2024 End: 08-18-2024 Patient encounter procedure Natan Keyes MD Work Phone: [facility] Work Phone: Start: 08-14-2024 End: 08-14-2024 Bamboo flowsheet Natan Keyes MD Work Phone: [facility] Start: 08-14-2024 End: 08-14-2024 Bamboo flowsheet Natan Keyes MD Work Phone: [facility] Start: 08-14-2024 End: 08-14-2024 Assay of hemosiderin, quant Natan Keyes MD Work Phone: [facility] Start: 08-14-2024 End: 08-14-2024 Patient encounter procedure Natan Keyes MD Work Phone: [facility] Comment on above: Routine general medi diego examination at 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); Type 2 diabetes mellitus without complication, without long-term current use of insulin (CMS/HCC); Malignant neoplasm of prostate (CMS/HCC); Malignant melanoma of other part of trunk (CMS/HCC); Other chest pain; Abnormal CT of brain Start: 08-14-2024 End: 08-14-2024 ambulatory NATAN KEYES Not Available Start: 07-18-2024 End: 07-18-2024 ambulatory WANDA CHINO Not Available Start: 07-18-2024 End: 07-18-2024 Office outpatient visit 15 minutes Wanda Chino MD Work Phone: [facility] Comment on above: Seborrheic keratosis (Primary Dx); Lentigines; Actinic keratosis; History of malignant melanoma of skin Start: 05-03-2024 End: 05-03-2024 Patient encounter procedure MD Natan Keyes Work Phone: [facility]CT Scan [facility] [place] Work Phone: Start: 05-03-2024 End: 05-03-2024 ambulatory MD Natan Keyes Work Phone: [facility] Work Phone: Start: 04-27-2024 End: 04-27-2024 ambulatory SUBHA KNIGHT Not Available Start: 04-27-2024 End: 04-27-2024 Office outpatient visit 25 minutes Subha Knight TIMBER SUPERVISOR Work Phone: [facility] Comment on above: Transient alteration of awareness (Primary Dx); Forgetfulness; Loss of balance Start: 04-27-2024 End: 04-27-2024 Bamboo flowsheet Subha Knihgt TIMBER SUPERVISOR Work Phone: [facility] Start: 04-27-2024 End: 04-27-2024 Bamboo flowsheet Subha Knight TIMBER SUPERVISOR Work Phone: [facility] Start: 04-18-2024 End: 04-18-2024 Clinisync Result Encounter Generic External Data Provider [facility] External Department Unsolicited Start: 04-18-2024 End: 04-18-2024 Clinisync Result Encounter Generic External Data Provider [facility] External Department Unsolicited Start: 04-17-2024 End: 04-17-2024 Bambarbara flowsjens Chino MD Work Phone: [facility] Start: 04-17-2024 End: 04-17-2024 Bambarbara flowsheet Wanda Chino MD Work Phone: [facility] Start: 04-17-2024 End: 04-17-2024 Office outpatient visit 15 minutes Wanda Chino MD Work Phone: [facility] Comment on above: Allergic contact shadia matitis due to plants, except food (Primary Dx); History of malignant melanoma of skin; Actinic keratosis; Neoplasm of unspecified behavior of bone, soft tissue, and skin; Seborrheic keratosis, inflamed; Lentigines; Seborrheic keratosis Start: 04-17-2024 End: 04-17-2024 ambulatory WANDA CHINO Not Available Start: 03-15-2024 End: 03-15-2024 ambulatory [facility] Work Phone: Start: 03-15-2024 End: 03-15-2024 Patient encounter procedure [facility] Work Phone: Start: 03-10-2024 End: 03-10-2024 ambulatory Bernardo RODGERS Facility:[facility] Start: 03-10-2024 End: 03-10-2024 Patient encounter procedure Bernardo RODGERS [facility] Start: 03-06-2024 Non-patient / Non-visit [facility] Work Phone: Start: 01-24-2024 End: 01-24-2024 ambulatory [facility] Work Phone: Start: 01-24-2024 End: 01-24-2024 Patient encounter procedure [facility] Work Phone: Start: 12-29-2023 End: 12-29-2023 Patient encounter procedure Stanley Beck MD Work Phone: Radiation Oncology Comment on above: History of prostate cancer (Primary Dx) Start: 11-12-2023 End: 11-12-2023 ambulatory [facility] Ambulatory Start: 11-12-2023 End: 11-12-2023 Postop follow up visit related to original px Goyo Valladares MD PhD Work Phone: [facility] Comment on above: Melanoma in situ of forehead (CMS/HCC); Encounter for change or removal of nonsurgical wound dressing Start: 11-03-2023 End: 11-03-2023 ambulatory [facility] Ambulatory Start: 11-03-2023 End: 11-03-2023 Patient encounter procedure Goyo Valladares MD PhD Work Phone: [facility] Comment on above: Melanoma in situ of forehead (CMS/HCC) Start: 09-27-2023 Bamboo flowsheet Julian A Fel ter SPACER TYPE BAR AND SEGMENT-COMMUNITY DEVELOPMENT SPECIALIST Work Phone: [facility] Start: 09-27-2023 Bamboo flowsheet Julian A Fel ter SPACER TYPE BAR AND SEGMENT-COMMUNITY DEVELOPMENT SPECIALIST Work Phone: [facility] Start: 09-21-2023 End: 09-21-2023 ambulatory Jillian Edwards Other [facility] [employer] Other Start: 09-21-2023 Telephone encounter Jillian Edwards [facility] Nephrology Start: 09-15-2023 Office outpatient vi sit 15 minutes Jillian Edwards [facility] Nephrology Start: 09-15-2023 End: 09-15-2023 ambulatory MD Natan Keyes Work Phone: [employer] Other Start: 09-15-2023 End: 09-15-2023 Patient encounter procedure MD Natan Keyes Work Phone: [facility] [place] Work Phone: Start: 07-05-2023 Patient encounter procedure Julian Hebert SPACER TYPE BAR AND SEGMENT-COMMUNITY DEVELOPMENT SPECIALIST Work Phone: [facility] Start: 05-20-2023 End: 05-20-2023 ambulatory MD Natan Keyes Work Phone: [facility] Work Phone: Start: 05-20-2023 End: 05-20-2023 Patient encounter procedure MD Natan Keyes Work Phone: [facility]-Flu Vaccine Start: 04-07-2023 End: 04-07-2023 Patient encounter procedure MD Natan Keyes Work Phone: [facility]-MRI [address] Work Phone: Start: 03-05-2023 End: 03-05-2023 ambulatory Chuck Hamm Other [employer] Other Start: 03-05-2023 Office outpatient vi sit 25 minutes Chuck Hamm [facility] Start: 02-27-2023 End: 02-27-2023 ambulatory Karine Torres Other [employer] Other Start: 02-27-2023 Office outpatient vi sit 15 minutes Karine Melissa [facility] Start: 01-20-2023 End: 01-20-2023 ambulatory Aziz Bakhous Other [employer] Other Start: 01-20-2023 Office outpatient vi sit 25 minutes Aziz Bakhous [facility] Start: 12-31-2022 End: 12-31-2022 Patient encounter procedure Stanley Beck MD Work Phone: Radiation Oncology Comment on above: History of prostate cancer (Primary Dx) Start: 12-25-2022 End: 12-25-2022 ambulatory MD Natan Keyes Work Phone: [facility] Work Phone: Start: 12-25-2022 End: 12-25-2022 Patient encounter procedure MD Natan Keyes Work Phone: [facility]Ultrasound [facility] [place] Work Phone: Start: 08-28-2022 End: 08-28-2022 ambulatory Karine Torres Other [employer] Other Start: 08-28-2022 Office outpatient vi sit 25 minutes Karinekrystal Torres [facility] Start: 06-24-2022 End: 06-24-2022 ambulatory Jillian Edwards Other [employer] Other Start: 06-24-2022 Office outpatient ne w 30 minutes Jillian Hos [facility] Start: 03-12-2022 End: 03-12-[address] NATAN KEYES Facility:[facility] Start: 03-11-2022 End: 03-11-[address] NATAN KEYES Facility:[facility] Start: 03-09-2022 End: 03-09-2022 Patient encounter procedure Bernardo RODGERS [facility] Start: 03-06-2022 End: 03-06-2022 ambulatory Chuck Hamm Other [employer] Other Start: 03-06-2022 Office outpatient vi sit 15 minutes Chuck Hamm [facility] Start: 02-28-2022 End: 02-28-2022 ambulatory Karine Torres Other [employer] Other Start: 02-28-2022 Office outpatient vi sit 15 minutes Karinekrystal Torres [facility] Start: 02-12-2022 (Procedure) Short Chuck Hamm [facility] Start: 02-12-2022 End: 02-12-2022 ambulatory Chuck Hamm Other [employer] Other Start: 12-01-2021 Refill G Yobani lemos MD Work Phone: Radiation Oncology Comment on above: Refill Request Start: 10-17-2021 End: 10-17-2021 ambulatory Chuck Hamm Other [employer] Other Start: 10-17-2021 Office outpatient vi sit 15 minutes Chuck Hamm [facility] Start: 08-22-2021 ambulatory MARY AKMACKA Facility:[facility] Start: 06-17-2021 End: 06-17-[address] ANTAN KEYES Facility:[facility] Start: 06-14-2021 Office outpatient vi sit 15 minutes Jenn Thomas [facility] Start: 05-23-2021 Office outpatient vi sit 15 minutes Karine Torres [facility] Start: 04-23-2021 ambulatory MARY AKKINA Facility:[facility] Start: 04-08-2020 End: 04-08-2020 Documentation procedure External Provider [facility] Start: 04-08-2020 External Correspondence External Pro vider External-Non[facility] Start: 04-08-2020 End: 04-08-2020 Patient encounter procedure External Provider [facility] Start: 04-08-2020 Results Only External Provider Exter nal-NonCCF Procedures Date Procedure Procedure Detail Performing Clinician Start: 01-01-2025 PSA screening [facility] shadia Start: 01-01-2025 [facility] PSA, DIAGNOSTIC Ge neric External Data Provider Start: 11-28-2024 Hemoglobin glycosylated a1c Natan Keyes MD Work Phone: Start: 11-23-2024 Radex toe minimum 2 views Yas Proctor NP Work Phone: Start: 09-18-2024 Radionuclide myocard ial perfusion stress study Natan Keyes MD Work Phone: Start: 08-14-2024 Hemoglobin glycosylated a1c Natan Keyes MD Work Phone: Start: 07-18-2024 CRYOTHERAPY SKIN LESION Wanda Chino MD Work Phone: Start: 05-03-2024 CT of head without contrast MD Natan Keyes Work Phone: Start: 04-18-2024 ALL CBC WITH AUTO DIFF Generic External Data Provider Start: 04-17-2024 SKIN / NAIL BIOPSY Paddy Chino MD Work Phone: Start: 04-17-2024 End: 04-17-2024 CRYOTHERAPY SKIN LESION Wanda Chino MD Work Phone: Start: 12-24-2023 PSA screening [facility] shadia Start: 11-12-2023 FOLLOW UP IN DERMATOLOGY GOYO VALLADARES Start: 11-03-2023 SHADIA NURSING COMMUNIC ATION - LIDOCAINE INJ GOYO VALLADARES Start: 11-03-2023 MOHS SURGERY GOYO MEYER OLL Start: 11-03-2023 MOHS SURGERY Goyo ferrell MD PhD Work Phone: Start: 04-07-2023 MR lumbar spine wo con MD Natan Keyes Work Phone: Start: 04-07-2023 X-ray of lumbar spin e, four views MD Natan Keyes Work Phone: Start: 12-25-2022 Ultrasonography of r ight kidney MD Natan Keyes Work Phone: Start: 11-04-2021 Adult depression scr eening assessment SHIRLEY Beck MD Work Phone: Start: 12-21-2020 Radiation therapy care Bernardo RODGERS Start: 04-08-2020 EXTERNAL IMAGING [employer] al Provider Start: 04-08-2020 End: 04-08-2020 EXTERNAL LAB External Provider Start: 04-08-2020 EXTERNAL PROCEDURE Exte rnal Provider Start: 03-28-2020 Transrectal biopsy o f prostate Bernardo RODGERS Start: 04-16-2011 Transrectal biopsy o f prostate using ultrasound guidance Bernardo RODGERS Comment on above: TRUS bx/cysto Start: 07-28-2007 Removal of ureteral stent Bernardo RODGERS Start: 07-12-2007 Laser ablation of prostate Bernardo RODGERS Start: 10-10-2001 Total nephrectomy Génesis RODGERS Comment on above: left side ( no date recorded) Appendectomy Bernardo RODGERS Tonsillectomy Bernardo RODGERS Plan of Treatment Date Care Activity Detail Author Start: 11-29-2027 Diabetes Screening Diabetes Screening [facility] Start: 07-31-2026 Glaucoma screening Diabetes: Retinopathy Screening [facility] Start: 01-04-2026 End: 04-05-2026 Prostate specific Ag [Mass/volume] in Serum or Plasma PROSTATE-SPECIFIC ANTIGEN DIAGNOSTIC Lab Routine History of prostate cancer Expected: 01/04/2026, Expires: 04/05/2026 [facility] Work Phone: Comment on above: Expected: 01/04/2026, Expires: Start: 01-03-2026 End: 01-03-2026 Patient encounter procedure 01/03/2026 10:00 AM EDT Office Visit Radiation Oncology [address] [place] [address] [place] [address] Stanley Beck MD [address] [place] [address] 1year follow up Radiation Oncology Comment on above: 1year follow up Start: 08-28-2025 Urine screening for protein Diabetes: Urine Protein Screening [facility] Start: 08-14-2025 Medicare Annual Wellness (AWV) Medicare Annual Wellness (AWV) [facility] Start: 04-23-2025 Influenza vaccination [facility] Start: 03-20-2025 End: 03-20-2025 ambulatory 03/20/2025 1:00 PM EDT Treatment [facility] [address] [place] [address] Pino Eric PTA [facility] Start: 03-16-2025 ambulatory Ambulatory Facility:[facility] Start: 03-15-2025 End: 03-15-2025 ambulatory 03/15/2025 11:30 AM EDT Treatment [facility] [address] [place] [address] Charly Brown PATIENT OMBUDSPERSON [facility] Start: 03-12-2025 End: 03-12-2025 ambulatory 03/12/2025 10:30 AM EDT Treatment [facility] [address] [place] [address] Charly Brown PATIENT OMBUDSPERSON [facility] Start: 03-08-2025 End: 03-08-2025 ambulatory 03/08/2025 10:30 AM EDT Treatment [facility] [address] [place] [address] Pino Eric PATIENT OMBUDSPERSON [facility] Start: 03-06-2025 End: 03-06-2025 Patient encounter procedure 03/06/2025 3:30 PM EDT Office Visit [facility] [address] [place] [address] Natan Keyes MD [address] [place] [address] [facility] Start: 03-05-2025 End: 03-05-2025 ambulatory 03/05/2025 1:30 PM EDT Treatment [facility] [address] [place] [address] Pino Eric PTA [facility] Start: 02-28-2025 End: 02-28-2025 ambulatory 02/28/2025 11:00 AM EDT Treatment [facility] [address] [place] [address] Pino Eric PTA [facility] Start: 02-27-2025 Hemoglobin A1c measurement Diabetes: Hemoglobin A1C [facility] Start: 02-27-2025 End: 02-27-2025 Patient encounter procedure 02/27/2025 1:00 PM EDT Office Visit [facility] [address] [place] [address] Natan Keyes MD [address] [place] [address] [facility] Start: 02-26-2025 End: 02-26-2025 ambulatory 02/26/2025 1:00 PM EDT Treatment [facility] [address] [place] [address] Pino Eric, PATIENT OMBUDSPERSON [facility] Start: 02-12-2025 End: 02-12-2025 ambulatory 02/12/2025 8:30 AM EDT Treatment [facility] [address] [place] [address] Pino Eric, PATIENT OMBUDSPERSON [facility] Start: 02-05-2025 End: 02-05-2025 ambulatory 02/05/2025 9:00 AM EDT Treatment [facility] [address] [place] [address] Pino Eric, PATIENT OMBUDSPERSON [facility] Start: 01-17-2025 End: 01-17-2025 ambulatory 01/17/2025 1:30 PM EDT Treatment [facility] [address] [place] [address] Charly Brown, PATIENT OMBUDSPERSON [facility] Start: 01-12-2025 End: 01-12-2025 ambulatory 01/12/2025 1:30 PM EDT Treatment [facility] [address] [place] [address] Pino Eric, PATIENT OMBUDSPERSON [facility] Start: 01-05-2025 End: 01-05-2025 ambulatory 01/05/2025 11:00 AM EDT Treatment [facility] [address] [place] [address] Pino Eric, PATIENT OMBUDSPERSON [facility] Start: 01-03-2025 End: 01-03-2025 ambulatory 01/03/2025 4:00 PM EDT Treatment [facility] [address] [place] [address] Pino Eric PTA [facility] Start: 01-02-2025 End: 01-02-2025 ambulatory 01/02/2025 1:30 PM EDT Treatment [facility] [address] [place] [address] Pino Eric PTA [facility] Start: 12-28-2024 End: 03-29-2025 Prostate specific Ag [Mass/volume] in Serum or Plasma PROSTATE-SPECIFIC ANTIGEN DIAGNOSTIC Lab Routine History of prostate cancer Expected: 12/28/2024 (Approximate), Expires: 03/29/2025 [facility] Work Phone: Comment on above: Expected: 12/28/2024 (Approximate), Expi res: 03/29/2025 Start: 12-28-2024 End: 12-28-2024 ambulatory 12/28/2024 10:00 AM EDT Treatment [facility] [address] [facility] [address] [place] [address] Pino Eric PTA [facility] Start: 12-27-2024 End: 12-27-2024 Patient encounter procedure 12/27/2024 9:45 AM EDT Office Visit Radiation Oncology [address] [place] [address] Stanley Beck MD [address] [place] [address] 1 Yr Follow Up labs [facility] Radiation Oncology Comment on above: 1 Yr Follow Up labs [facility] Start: 12-26-2024 End: 12-26-2024 ambulatory 12/26/2024 10:30 AM EDT Treatment [facility] [address] [facility] [address] [place] [address] Pino Eric PTA Arrived [facility] Comment on above: Arrived Start: 12-25-2024 End: 12-25-2024 ambulatory 12/25/2024 10:30 AM EDT Treatment [facility] [address] [facility] [address] [place] [address] Marilyn Ochoa, PT [facility] Start: 12-21-2024 End: 12-21-2024 ambulatory 12/21/2024 10:30 AM EDT Treatment [facility] [address] [facility] [address] [place] [address] Pino Eric, PATIENT OMBUDSPERSON [facility] Start: 12-18-2024 End: 12-18-2024 ambulatory 12/18/2024 10:00 AM EDT Treatment [facility] [address] [facility] [address] [place] [address] Pino Eric, PATIENT OMBUDSPERSON [facility] Start: 12-15-2024 End: 12-15-2024 ambulatory 12/15/2024 11:30 AM EDT Treatment [facility] [address] [facility] [address] [place] [address] Pino Eric, PATIENT OMBUDSPERSON [facility] Start: 12-14-2024 End: 12-14-2024 ambulatory 12/14/2024 9:30 AM EDT Treatment [facility] [address] [facility] [address] [place] [address] Marilyn Ochoa, PT [facility] Start: 12-11-2024 End: 12-11-2024 ambulatory 12/11/2024 9:00 AM EDT Treatment [facility] [address] [facility] [address] [place] [address] Pino Eric, PATIENT OMBUDSPERSON [facility] Start: 12-06-2024 End: 12-06-2024 ambulatory 12/06/2024 10:00 AM EDT Treatment [facility] [address] [facility] [address] [place] [address] Pino Eric PATIENT OMBUDSPERSON [facility] Start: 12-04-2024 End: 12-04-2024 ambulatory [facility] Comment on above: Acute low back pain without sciatica, un specified back pain laterality (Primary Dx) Start: 11-28-2024 End: 11-28-2024 Patient encounter procedure 11/28/2024 1:45 PM EDT Office Visit [facility] [address] [facility] [address] [place] [address] Natan Keyes MD [address] [facility] [address] [place] [address] [facility] Start: 11-16-2024 Glaucoma screening Diabetes: Retinopathy Screening [facility] Start: 11-12-2024 Hemoglobin A1c measurement Diabetes: Hemoglobin A1C [facility] Start: 10-12-2024 End: 10-12-2024 Patient encounter procedure 10/12/2024 9:20 AM EST Office Visit [facility] [address] [facility] [address] [place] [address] Merrill Mcrae, DPM [address] [address] [facility] Start: 10-03-2024 End: 10-03-2024 Patient encounter procedure 10/03/2024 3:30 PM EST Office Visit [facility] [address] [place] [address] Merrill Mcrae DPM [address] [address] Arrived [facility] Comment on above: Arrived Start: 09-19-2024 End: 09-19-2024 Patient encounter procedure 09/19/2024 1:30 PM EST Office Visit [facility] [address] [facility] [address] [place] [address] Natan Keyes MD [address] [facility] [address] [place] [address] [facility] Start: 09-13-2024 End: 09-13-2025 Urate [Mass/volume] in Serum or Plasma Uric acid Lab Routine Acute gout, unspecified cause, unspecified site Expected: 09/13/2024 (Approximate), Expires: 09/13/2025 [facility] Work Phone: Comment on above: Expected: 09/13/2024 (Approximate), Expi res: 09/13/2025 Start: 08-23-2024 Advance Directive Discussion Advance Directive Discussion [facility] Start: 08-14-2024 End: 08-14-2025 CBC W Auto Differential panel - Blood CBC and differential Lab Routine Type 2 diabetes mellitus with stage 3a chronic kidney disease, without long-term current use of insulin (HCC) (CMS/HCC) Hypertriglyceridemia (CMS/HCC) Medicare annual wellness visit, subsequent Lipoprotein deficiency disorder (CMS/HCC) Expected: 08/14/2024 (Approximate), Expires: 08/14/2025 [facility] [employer] Work Phone: Comment on above: Expected: 08/14/2024 (Approximate), Expi res: 08/14/2025 Start: 08-14-2024 End: 08-14-2025 Comprehensive metabolic 2000 panel - Serum or Plasma Comprehensive metabolic panel Lab Routine Type 2 diabetes mellitus with stage 3a chronic kidney disease, without long-term current use of insulin (HCC) (CMS/HCC) Hypertriglyceridemia (CMS/HCC) Medicare annual wellness visit, subsequent Expected: 08/14/2024 (Approximate), Expires: 08/14/2025 [facility] [employer] Comment on above: Expected: 08/14/2024 (Approximate), Expi res: 08/14/2025 Start: 08-14-2024 End: 08-14-2025 Functional MR Brain for motor function MR head functional motor Imaging Routine Abnormal CT of brain Expected: 08/14/2024, Expires: 08/14/2025 [facility] Comment on above: Expected: 08/14/2024, Expires: Start: 08-14-2024 End: 08-14-2025 Lipid 1996 panel - Serum or Plasma Lipid panel Lab Routine Hypertriglyceridemia (CMS/HCC) Medicare annual wellness visit, subsequent Lipoprotein deficiency disorder (CMS/HCC) Expected: 08/14/2024 (Approximate), Expires: 08/14/2025 [facility] Comment on above: Expected: 08/14/2024 (Approximate), Expi res: 08/14/2025 Start: 08-14-2024 End: 08-14-2025 Microalbumin/Creatinine panel in random Urine Microalbumin / creatinine urine ratio Lab Routine Type 2 diabetes mellitus with stage 3a chronic kidney disease, without long-term current use of insulin ([facility]) ([facility]) Medicare annual wellness visit, subsequent Expected: 08/14/2024 (Approximate), Expires: 08/14/2025 [facility] Comment on above: Expected: 08/14/2024 (Approximate), Expi res: 08/14/2025 Start: 08-14-2024 End: 08-14-2026 NM Heart Perfusion W single state of exercise Stress test with myocardial perfusion Cardiac Nuclear Medicine Routine Other chest pain Expected: 08/14/2024 (Approximate), Expires: 08/14/2026 [facility] Comment on above: Expected: 08/14/2024 (Approximate), Expi res: 08/14/2026 Start: 08-14-2024 End: 08-14-2024 Patient encounter procedure 08/14/2024 9:30 AM EST Office Visit [facility] [address] [place] [address] Natan Keyes MD [address] [place] [address] Arrived [facility] Comment on above: Arrived Start: 08-08-2024 End: 08-08-2024 Patient encounter procedure 08/08/2024 9:15 AM EST Office Visit [facility] [address] [place] [address] Natan Keyes MD [address] [place] [address] [facility] Start: 07-18-2024 End: 07-18-2024 Patient encounter procedure 07/18/2024 8:45 AM EST Office Visit [facility] [address] [place] [address] Wanda Chino MD [address] [place] [address] [facility] Start: 07-05-2024 Medicare Annual Wellness (AWV) Medicare Annual Wellness (AWV) [facility] Start: 07-05-2024 Urine screening for protein Diabetes: Urine Protein Screening [facility] Start: 07-04-2024 Pneumococcal Vaccine: 65+ Years (2 - PPSV23 or PCV20) Pneumococcal Vaccine: 65+ Years (2 - PPSV23 or PCV20) [facility] Comment on above: Postponed from 08/15/2019 (Other Patient Reasons) Start: 07-04-2024 Pneumococcal Vaccine: 65+ Years (2 of 2 - PPSV23 or PCV20) Pneumococcal Vaccine: 65+ Years (2 of 2 - PPSV23 or PCV20) [facility] Comment on above: Postponed from 08/15/2019 (Other Patient Reasons) Start: 04-27-2024 End: 04-27-2025 CT Head WO contrast CT head wo IV contrast Imaging Routine Transient alteration of awareness Forgetfulness Loss of balance Expected: 04/27/2024 (Approximate), Expires: 04/27/2025 [facility] Work Phone: Comment on above: Expected: 04/27/2024 (Approximate), Expi res: 04/27/2025 Start: 04-23-2024 Covid-19 Vaccine ( season) Covid-19 Vaccine ( season) [facility] Start: 04-23-2024 Influenza vaccination Influenza Vaccine (#1) [facility] Start: 04-17-2024 End: 04-17-2024 Patient encounter procedure 04/17/2024 8:40 AM EDT Office Visit [facility] [address] [place] [address] Wanda Chino MD [address] [place] [address] Arrived [facility] Comment on above: Arrived Start: 02-05-2024 DIABETES SCREEN DIABETES SCREEN [facility] Start: 01-01-2024 End: 03-02-2024 Prostate specific Ag [Mass/volume] in Serum or Plasma PSA/PROSTSPECAG DIAG Lab Routine History of prostate cancer Expected: 01/01/2024, Expires: 03/02/2024 [facility] Work Phone: Comment on above: Expected: 01/01/2024, Expires: Start: 11-12-2023 End: 11-12-2023 Patient encounter procedure 11/12/2023 11:00 AM EDT Office Visit [facility] [address] [id number] Goyo Valladares MD PhD [address], [address] [address] [facility] Start: 10-05-2023 Hemoglobin A1c measurement Diabetes: Hemoglobin A1C [facility] Start: 08-23-2023 Advance Directive Discussion Advance Directive Discussion [facility] Start: 08-23-2023 Behavioral Health Screening Behavioral Health Screening [facility] Start: 04-23-2023 COVID-19 Vaccine ( season) COVID-19 Vaccine () [facility] Start: 04-23-2023 Influenza vaccination [facility]FLU[facility]ZA ([facility] Ended) [facility] Start: 11-04-2022 Adult depression screening assessment DEPRESSION SCREENING [facility] Start: 08-23-2022 ADVANCE DIRECTIVE DISCUSSION ADVANCE DIRECTIVE DISCUSSION [facility] Start: 08-23-2022 DEPRESSION ASSESSMENT DEPRESSION ASSESSMENT [facility] Start: 09-10-2021 COVID-19 VACCINE (4 - Booster for Moderna series) COVID-19 VACCINE (4 - Booster for Moderna series) [facility] Start: 08-23-2021 ADVANCE DIRECTIVE DISCUSSION ADVANCE DIRECTIVE DISCUSSION [facility] Start: 2020 RSV Vaccine (1 - 1-dose 75+ series) RSV Vaccine (1 - 1-dose 75+ series) [facility] Start: 06-20-2020 Pneumococcal Vaccine: 50+ (2 of 2 - PPSV23) Pneumococcal Vaccine: 50+ (2 of 2 - PPSV23) [facility] Start: 06-20-2020 Pneumococcal Vaccine: 65+ (2 of 2 - PPSV23 or PCV20) Pneumococcal Vaccine: 65+ (2 of 2 - PPSV23 or PCV20) [facility] Start: 06-20-2020 Pneumococcal Vaccine: 65+ Years (2 - PPSV23 or PCV20) Pneumococcal Vaccine: 65+ Years (2 - PPSV23 or PCV20) [facility] Start: 04-23-2020 Influenza vaccination INFLUENZA (#1) [facility] Start: 08-15-2019 Pneumococcal Vaccine: 65+ Years (2 of 2 - PPSV23 or PCV20) Pneumococcal Vaccine: 65+ Years (2 of 2 - PPSV23 or PCV20) [facility] Start: 08-15-2019 Pneumococcal Vaccine: 65+ Years (2 of 2 - PPSV23) Pneumococcal Vaccine: 65+ Years (2 of 2 - PPSV23) [facility] Start: 2010 ADVANCE DIRECTIVE DISCUSSION ADVANCE DIRECTIVE DISCUSSION [facility] Start: 2010 PNEUMOCOCCAL: 65+ (1 - PCV) PNEUMOCOCCAL: 65+ (1 - PCV) [facility] Start: 2010 PNEUMOVAX AGE 65 AND OVER WITH 5YR LOOKBACK (#1) PNEUMOVAX AGE 65 AND OVER WITH 5YR LOOKBACK (#1) [facility] Start: 05-16-2006 LIPID SCREEN LIPID SCREEN [facility] Start: 2005 RSV Vaccine (1 - 1-dose 60+ series) RSV Vaccine (1 - 1-dose 60+ series) [facility] Start: 10-12-2004 DIABETES SCREEN DIABETES SCREEN [facility] Start: 10-12-2004 Diabetes Screening Diabetes Screening [facility] Start: 10-30-1995 SHINGRIX VACCINE (1 of 2) SHINGRIX VACCINE (1 of 2) [facility] Start: 10-30-1995 Tuberculosis screening COLORECTAL CANCER SCREENING,SEE MODIFIER [facility] Start: 10-30-1995 Zoster Vaccines (1 of 2) Zoster Vaccines (1 of 2) [facility] Start: 10-30-1967 DTaP/Tdap/Td Vaccines (1 - Tdap) DTaP/Tdap/Td Vaccines (1 - Tdap) [facility] Start: 1964 Urine microalbumin profile [facility] Start: 10-30-1963 Anxiety Screening Anxiety Screening [facility] Start: 10-30-1963 Depression Screening Depression Screening [facility] Start: 10-30-1963 Hepatitis C screening Hepatitis C Screening [facility] Start: 05-01-1946 Examination of skin Derm Melanoma Skin Check [facility] Start: 1945 Lipid panel Lipid Panel [facility] Start: 1945 Yearly Adult Physical Yearly Adult Physical [facility] Dermatopathology exam Dermatopat hology exam Pathology and Cytology Timed Neoplasm of unspecified behavior of bone, soft tissue, and skin Release Upon Ordering for 1 Occurrences starting 04/17/2024 [facility] Work Phone: Comment on above: Release Upon Ordering for 1 Occurrences starting 04/17/2024 Renal function 2000 panel - Serum or Plasma [facility] Immunizations Immunization Date Immunization Notes Care Provider Fa cili 08-13-2024 influenza virus vaccine, unspecified formulation Elicia Terrazas PT Work Phone: [facility] 05-20-2023 influenza, injectable, quadrivalent, preservative free Julian Felter SPACER TYPE [employer]MENT-COMMUNITY DEVELOPMENT SPECIALIST Work Phone: [facility] 05-20-2023 influenza virus vaccine, unspecified formulation Wanda Chino MD Work Phone: [facility] 06-02-2022 influenza, high dose seasonal, preservative-free Julian Felter SPACER TYPE [employer]MENT-COMMUNITY DEVELOPMENT SPECIALIST Work Phone: [facility] 06-11-2021 influenza, injectable, quadrivalent, preservative free Julian Felter SPACER TYPE [employer]GMENT-COMMUNITY DEVELOPMENT SPECIALIST Work Phone: [facility] 11-01-2020 COVID-19 vaccine, full dose (MODERNA) SHIRLEY Beck MD Work Phone: [facility] 10-04-2020 COVID-19 vaccine, full dose (MODERNA) SHIRLEY Beck MD Work Phone: [facility] 06-05-2020 influenza, seasonal, injectable Julian Felter SPACER TYPE [employer]MENT-COMMUNITY DEVELOPMENT SPECIALIST Work Phone: [facility] 05-24-2020 Influenza, High-dose Seasonal, Quadrivalent, Preservative Free Julian Felter SPACER TYPE [employer]MENT-COMMUNITY DEVELOPMENT SPECIALIST Work Phone: [facility] 06-20-2019 influenza, high dose seasonal, preservative-free Julian Felter SPACER TYPE [employer]MENT-COMMUNITY DEVELOPMENT SPECIALIST Work Phone: [facility] 06-20-2019 Influenza, High-dose Seasonal, Quadrivalent, Preservative Free Julian Hebert SPACER TYPE [employer]MENT-COMMUNITY DEVELOPMENT SPECIALIST Work Phone: [facility] 06-20-2019 pneumococcal conjugate vaccine, 13 valent Julian Hebert SPACER TYPE [employer]MENT-COMMUNITY DEVELOPMENT SPECIALIST Work Phone: [facility] 06-05-2019 influenza, seasonal, injectable Julian Hebert SPACER TYPE [employer]MENT-COMMUNITY DEVELOPMENT SPECIALIST Work Phone: [facility] 06-20-2018 influenza, high dose seasonal, preservative-free Julian Hebert SPACER TYPE [employer]GMENT-COMMUNITY DEVELOPMENT SPECIALIST Work Phone: [facility] 06-20-2018 Influenza, High-dose Seasonal, Quadrivalent, Preservative Free Julian Hebert SPACER TYPE [employer]MENT-COMMUNITY DEVELOPMENT SPECIALIST Work Phone: [facility] 06-24-2017 influenza, seasonal, injectable Julian Hebert SPACER TYPE [employer]MENT-COMMUNITY DEVELOPMENT SPECIALIST Work Phone: [facility] 06-24-2017 pneumococcal Conjugate, unspecified formulation Julian Hebert SPACER TYPE [employer]MENT-COMMUNITY DEVELOPMENT SPECIALIST Work Phone: [facility] 06-23-2017 influenza virus vaccine, split virus (incl. purified surface antigen) Julian Hebert SPACER TYPE [employer]MENT-COMMUNITY DEVELOPMENT SPECIALIST Work Phone: [facility] 06-11-2015 influenza, injectable, quadrivalent, preservative free Julian Hebert SPACER TYPE [employer]MENT-COMMUNITY DEVELOPMENT SPECIALIST Work Phone: [facility] NEGATED: Highlighted row has not occurred!03-09-2022 SARS-CoV-2 mRNA (tozinameran 5y-11y) vaccine Bernardo RODGERS [facility] Payers Date Payer Category Payer Medicare [id number] 2024 Self-pay [id number] 2022 Private Health Insurance GENERIC COMMERCIAL [id number] 2020 Medicare [id number] [id number]. [id number] 2020 Miscellaneous or Other HOSPITAL/ MEDICAL GENERIC [id number] [id number] 2020 Unknown HOSPITAL/MEDICAL GENERIC MEDICAL GENERIC [id number] 2020-Present [phone] [place] [address] Indemnity [id number]. [id number] 2020 Unknown [id number]. 1.13.159. [id number] 2010 Medicare [id number]. [id number] 1959 Medicare [id number] 2.16.840.1.899562.19 1959 Private Health Insurance [id number] 1959 Self-pay [id number] 1959 Unknown [id number] 2.16.840.1.669783.19 1945 Unknown [id number] 2.16.840.1.094653.3.579. 2.593 1945 Unknown [id number] 2.16.840.1.446412.3.579. 2.593 1945 Unknown [id number] 2.16.840.1.387704.3.579. 2.593 1945 Unknown [id number] 2.16.840.1.075527.3.579. 2.593 1945 Unknown [id number] 2.16.840.1.564299.3.579. 2.593 1945 Unknown [id number] 2.16.840.1.166676.3.579. 2.1244 1945 Unknown [id number] 2.16.840.1.643789.3.579. 2.1244 1945 Unknown [id number] 2.16.840.1.676463.3.579. 2.727 1945 Unknown [id number] 2.16.840.1.392539.3.579. 2.727 1945 Unknown [id number] 2.16.840.1.335136.3.579. 2.727 1945 Unknown [id number] 2.16.840.1.088230.3.579. 2.1259 1945 Unknown [id number] 2.16.840.1.582785.3.579. 2.1259 1945 Unknown [id number] 2.16.840.1.396926.3.579. 2.1259 1945 Unknown [id number] 2.16.840.1.645768.3.579. 2.1259 1945 Unknown [id number] 2.16.840.1.792261.3.579. 2.1259 1945 Unknown [id number] 2.16.840.1.355377.3.579. 2.1258 1945 Unknown [id number] 2.16.840.1.288030.3.579. 2.1259 1945 Unknown [id number] 2.16.840.1.941730.3.579. 2.1258 1945 Unknown [id number] 2.16.840.1.900544.3.579. 2.125 1945 Unknown [id number] 2.16.840.1.592181.3.579. 2.1258 1945 Unknown [id number] 2.16.840.1.855091.3.579. 2.1258 1945 Unknown [id number] 2.16.840.1.475885.3.579. 2.1258 1945 Unknown [id number] 2.16.840.1.662848.3.579. 2.1258 1945 Unknown [id number] 2.16.840.1.552420.3.579. 2.1258 1945 Unknown [id number] 2.16.840.1.973326.3.579. 2.1258 1945 Unknown [id number] 2.16.840.1.037606.3.579. 2.1258 1945 Unknown [id number] 2.16.840.1.908300.3.579. 2.125 1945 Unknown [id number] 2.16.840.1.948873.3.579. 2.1258 1945 Unknown [id number] 2.16.840.1.116841.3.579. 2.1258 1945 Unknown [id number] 2.16.840.1.239024.3.579. 2.125 1945 Unknown [id number] 2.16.840.1.929649.3.579. 2.1258 1945 Unknown [id number] 2.16.840.1.365410.3.579. 2.1258 1945 Unknown [id number] 2.16.840.1.471995.3.579. 2.1258 1945 Unknown [id number] 2.16.840.1.829350.3.579. 2.1258 1945 Unknown [id number] 2.16.840.1.464286.3.579. 2.1258 1945 Unknown [id number] 2.16.840.1.960757.3.579. 2.9 1945 Unknown [id number] 2.16.840.1.591759.3.579. 2.718 Medicare Medicare Nonpatient [id number] Unknown [id number] 2.16.840.1.090448.3.579. 2.531 Unknown [id number] 2.16.840.1.306814.3.579. 2.531 Social History Date Type Detail Facility Tobacco smoking status OHIS Unknown if ever smoked [facility] Start: 1945 Sex Assigned At Not on file [facility] [facility] Exposure to SARS-CoV-2 (event) Unable to assess [facility] Start: 04-17-2020 End: 04-01-2023 Tobacco smoking status NHIS Never smoked tobacco [facility] Start: 04-17-2020 End: 04-01-2023 Tobacco use and exposure Smokeless tobacco non-user [facility] Start: 05-06-2021 End: 12-31-2022 Alcohol intake Current drinker of alcohol (finding) [facility] Start: 04-17-2020 History SDOH Alcohol Frequency 2 [facility] Start: 10-25-2021 End: 11-12-2023 Exposure to SARS-CoV-2 (event) Not sure [facility] Start: 07-04-2023 End: 11-28-2024 Sex Assigned At Kijubi Other Tobacco smoking status Never [facility] Start: 1945 Sex Assigned At Male F [facility] Start: 07-04-2023 End: 11-28-2024 Alcohol intake Lifetime non-drinker (finding) [facility] Start: 07-04-2023 End: 11-28-2024 History of Social function [facility] Start: 03-19-2023 Sexual orientation Heterosexual (fin ding) [facility] Tobacco smoking status NHIS Tobacco smoking consumption unknown [facility] Work Phone: How often to you hav e a drink containing alcohol? Monthly or less [facility] Start: 09-19-2024 Sex Male (finding) [facility] NEGATED: Highlighted rowStart: NINF History of tobacco use Passive smoker [facility] Functional Status Date Assessment Result Facility 03-10-2024 Functional Status N/A [facility] 03-09-2022 Functional Status N/A [facility] Clinical Notes 05-23-2021 to 02-23-2025 Telephone Encounter - DESTINI Arredondo - 02/13/2025 5:08 PM EDTTelephone Encounter - DESTINI Arredondo - 02/13/2025 5:08 PM EDTTelephone Encounter - Luz Justice - 02/12/2025 9:31 AM EDT Note Date & Type Note Facility 02-23-2025 Note Patient Education Ma terials Follows:Disease Upper Respiratory Infection, Adult An upper respiratory infection (URI) is a common viral infection of the nose, throat, and upper air passages that lead to the lungs. The most common type of URI is the common cold. URIs usually get better on their own, without medical treatment. What are the causes? A URI is caused by a virus. You may catch a virus by: ? Breathing in droplets from an infected person's cough or sneeze. ? Touching something that has been exposed to the virus (is contaminated) and then touching your mouth, nose, or eyes. What increases the risk? You are more likely to get a URI if: ? You are very young or very old. ? You have close contact with others, such as at work, school, or a health care facility. ? You smoke. ? You have long-term (chronic) heart or lung disease. ? You have a weakened disease-fighting system (immune system). ? You have nasal allergies or asthma. ? You are experiencing a lot of stress. ? You have poor nutrition. What are the signs or symptoms? A URI usually involves some of the following symptoms: ? Runny or stuffy (congested) nose. ? Cough. ? Sneezing. ? Sore throat. ? Headache. ? Fatigue. ? Fever. ? Loss of appetite. ? Pain in your forehead, behind your eyes, and over your cheekbones (sinus pain). ? Muscle aches. ? Redness or irritation of the eyes. ? Pressure in the ears or face. How [...] usually get better on their own within 7?10 days. Medicines cannot cure URIs, but your health care provider may recommend certain medicines to help relieve symptoms, such as: ? Wsae-sch-msxileh cold medicines. ? Cough suppressants. Coughing is a type of defense against infection that helps to clear the respiratory system, so take these medicines only as recommended by your health care provider. ? Fever-reducing medicines. Follow these instructions at home: Activity ? Rest as needed. ? If you have a fever, stay home from work or school until your fever is gone or until your health care provider says your URI cannot spread to other people (is no longer contagious). Your health care provider may have you wear a face mask to prevent your infection from spreading. Relieving symptoms ? Gargle with a mixture of salt and water 3?4 times a day or as needed. To make salt water, completely dissolve ??1 tsp (3?6 g) of salt in 1 cup (237 mL) of warm water. ? Use a cool-mist humidifier to add moisture to the air. This can help you breathe more easily. Eating and drinking ? Drink enough fluid to keep your urine pale yellow. ? Eat soups and other clear broths. General instructions ? Take wmmr-est-kdeswnk and prescription medicines only as told by your health care provider. These include cold medicines, fever reducers, and cough suppressants. ? Do not use any products that contain nicotine or tobacco. These products include cigarettes, chewing tobacco, and vaping devices, such as e-cigarettes. If you need help quitting, ask your health care provider. ? Stay away from secondhand smoke. ? Stay up to date on all immunizations, including the yearly (annual) flu vaccine. ? Keep all follow-up visits. This is important. How to prevent the spread of infection to others URIs can be contagious. To prevent the infection from spreading: ? Wash your hands with soap and water for at least 20 seconds. If soap and water are not available, use hand shutdown planner. ? Avoid touching your mouth, face, eyes, or nose. ? Cough or sneeze into a tissue or your sleeve or elbow instead of into your hand or into the air. Contact a health care provider if: ? You are getting worse instead of better. ? You have a fever or chills. ? Your mucus is brown or red. ? You have yellow or brown discharge coming from your nose. ? You have pain in your face, especially when you bend forward. ? You have swollen neck glands. ? You have pain while swallowing. ? You have white areas in the back of your throat. Get help right away if: ? You have shortness of breath that gets worse. ? You have severe or persistent: ? Headache. ? Ear pain. ? Sinus pain. ? Chest pain. ? You have chronic lung disease along with any of the following: ? Making high-pitched whistling sounds when you breathe, most often when you breathe out (wheezing). ? Prolonged cough (more than 14 days). ? Coughing up blood. ? A change in your usual mucus. ? You have a stiff neck. ? You have changes in your: ? Vision. ? Hearing. ? Thinking. ? Mood. These symptoms may (more content not included)... [facility] 02-13-2025 Telephone encounter Note Flomax sent. PT ordered [facility] 02-13-2025 Miscellaneous Notes Flomax sent. PT ordered Patient came in asking if we could get him a prescription for flomax sent to [facility]. He also wondered if he could get a new referral for pt for his neck pain. He said he just finished pt for his back but that they will need a new referral for his neck. documented in this encounter [facility] 02-12-2025 Telephone encounter Note Patient came in asking if we could get him a prescription for flomax sent to the [facility]. He also wondered if he could get a new referral for pt for his neck pain. He said he just finished pt for his back but that they will need a new referral for his neck. [facility] 01-04-2025 Note HNO ID: [id number] Author: Stanley BECK MD Service: ? Author Type: Physician Type: Progress Notes Filed: 01/04/2025 11:12 Note Text: Radiation Oncology - Follow Up Note PATIENT NAME: Rocio Pang PATIENT DIAGNOSIS: Prostate adenocarcinoma, initial PSA 8.5, biopsy Dundee score 3 + 4 = 7 (grade [...] 28 fractions ELAPSED TIME: 37 days. INTERVAL HISTORY: Doing well denies new problems or concerns. 05/20/22:Doing [...] 05/16/2001 2.1 PSA. (no units) Date Value 01/01/2025 0.26 03/06/2024 0.32 12/24/2023 0.35 ALLERGIES No Known Allergies colchicine 0.6 mg tablet 2 tabs (1.2mg) x1 then 1 tab (0.6mg) x1 1 hour later. metFORMIN (GLUCOPHAGE) 500 mg tablet Take 500 mg by mouth daily with breakfast. Cholecalciferol, Vitamin D3, 50 mcg (2,000 unit) cap Take by mouth. JANUVIA 100 mg tablet TAKE 1 TABLET BY MOUTH EVERY DAY FOR 30 DAYS diphenhydramine HCl (BENADRYL ALLERGY ORAL) Take by mouth. loperamide HCl (IMODIUM ORAL) Take by mouth as needed. atorvastatin (LIPITOR) 40 mg tablet Take 40 mg by mouth once daily. allopurinol (ZYLOPRIM) 100 mg tablet Take 100 mg by mouth once daily. REVIEW OF SYSTEMS: D/N = 4-5/1 Hematuria: none Dysuria: none Incontinence: none Urgency: none Catheter use: none Medications to aid urination: y - Total AUA Score: 8 Bowel movement frequency: 1/day Bowel movement quality: normal Blood per emesis left neck: none PHYSICAL EXAM: BP 132/71 Pulse 61 Temp 36.3 ?C (97.3 ?F) Resp 18 Wt 91.4 kg (201 lb 8 oz) SpO2 97% KPS: 100 General appearance: Alert and oriented. No acute distress. Rectal exam def Extremities: No deformities, edema, skin discoloration, clubbing or cyanosis. Lymph Nodes: No cervical lymphadenopathy, No supraclavicular lymphadenopathy, No axillary lymphadenopathy. Skin: Skin color, texture, turgor normal, no suspicious rashes or lesions. 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 Patient continues to do very well. PSA remains low. No significant post radiation related problems. Plan to see patient back in 1 year with PSA. Signed by: Stanley Beck MD cc: Natan Keyes MD Portions of the above note extracted and edited from previous visit as well as active information included in the EMR. [facility] 01-04-2025 History of Present illness Narrative Radiation Oncology [...] 28 fractions ELAPSED TIME: 37 days. INTERVAL HISTORY: Doing well denies new problems or concerns. 05/20/22:Doing [...] 05/16/2001 2.1 PSA. (no units) Date Value 01/01/2025 0.26 03/06/2024 0.32 12/24/2023 0.35 ALLERGIES No Known Allergies colchicine 0.6 mg tablet 2 tabs (1.2mg) x1 then 1 tab (0.6mg) x1 1 hour later. metFORMIN (GLUCOPHAGE) 500 mg tablet Take 500 mg by mouth daily with breakfast. Cholecalciferol, Vitamin D3, 50 mcg (2,000 unit) cap Take by mouth. JANUVIA 100 mg tablet TAKE 1 TABLET BY MOUTH EVERY DAY FOR 30 DAYS diphenhydramine HCl (BENADRYL ALLERGY ORAL) Take by mouth. loperamide HCl (IMODIUM ORAL) Take by mouth as needed. atorvastatin (LIPITOR) 40 mg tablet Take 40 mg by mouth once daily. allopurinol (ZYLOPRIM) 100 mg tablet Take 100 mg by mouth once daily. REVIEW OF SYSTEMS: D/N = 4-5/ Hematuria: none Dysuria: none Incontinence: none Urgency: none Catheter use: none Medications to aid urination: y - Total AUA Score: 8 Bowel movement frequency: 1/day Bowel movement quality: normal Blood per emesis left neck: none PHYSICAL EXAM: BP 132/71 Pulse 61 Temp 36.3 C (97.3 F) Resp 18 Wt 91.4 kg (201 lb 8 oz) SpO2 97% KPS: 100 General appearance: Alert and oriented. No acute distress. Rectal exam def Extremities: No deformities, edema, skin discoloration, clubbing or cyanosis. Lymph Nodes: No cervical lymphadenopathy, No supraclavicular lymphadenopathy, No axillary lymphadenopathy. Skin: Skin color, texture, turgor normal, no suspicious rashes or lesions. 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 Patient continues to do very well. PSA remains low. No significant post radiation related problems. Plan to see patient back in 1 year with PSA. Signed by: Stanley Beck MD cc: Natan Keyes MD Portions of the above note extracted and edited from previous visit as well as active information included in the EMR. MIESHA Gilbert RN documented in this encounter [facility] 01-04-2025 Note HNO ID: [id number] Author: DORA GILBERT RN Service: ? Author Type: Registered Nurse Type: Progress Notes Filed: 01/04/2025 11:12 Note Text: MIESHA Gilbert RN [facility] 11-28-2024 History of Present illness Narrative Associated Problem(s): Ingrown right big toenail No drainage F/Up Dr. Mcrae Associated Problem(s): Type 2 diabetes mellitus without complication, without long-term current use of insulin No Tobacco use Follow ADA 1800 diet [...] ago has had 3 rounds. Since Thanksgiving. Associated Problem(s): Acute gout Improved with Cochicine Associated Problem(s): Acute low back pain without sciatica PT referral made Stretching and core exercises advised OTC Tylenol and Ibuprofen Images from the original note were not included. Subjective Patient ID: Rocio Pang is a 79 y.o. male who presents for gout. Pt went to urgent care on 11/23 for gout , pt was given colchicine it is located right big toe Medication did help pt , he stated right after taking this it was better Pt is needing PT referral , he was working in yard Wednesday doing a lot of lifting and now back is hurting Current Outpatient Medications on File Prior to Visit Medication Sig Dispense Refill albuterol HFA 90 mcg/act inhaler INHALE 2 PUFFS BY MOUTH 4 TIMES A DAY NEEDED allopurinol (Zyloprim) 100 MG tablet TAKE 1 TABLET BY MOUTH EVERY DAY 100 tablet 3 Alrex 0.2 % suspension ophthalmic suspension Administer 1 drop into both eyes in the morning and 1 drop before bedtime. Ascorbic Acid (vitamin C) 100 MG tablet Take 100 mg by mouth Daily aspirin 81 MG EC tablet Take 1 tablet (81 mg) by mouth Daily atorvastatin (Lipitor) 40 MG tablet Take 1 tablet (40 mg) by mouth Daily 30 tablet 11 baclofen (Lioresal) 10 MG tablet every 8 (eight) hours. cholecalciferol (Vitamin D-3) 50 MCG (2000 UT) capsule Take by mouth. colchicine 0.6 MG tablet 2 tabs (1.2mg) x1 then 1 tab (0.6mg) x1 1 hour later. 3 tablet 11 Continuous Glucose Transfer Knitter (FreeStyle Mayito 2 Ehrhardt) device 1 Device Daily 1 each 0 Continuous Glucose Sensor (FreeStyle Mayito 2 Sensor) misc CHANGE EVERY 2 WEEKS DIRECTED 2 each 2 HYDROcodone-acetaminophen (Greenwood) 5-325 MG tablet TAKE 1-2 TABLET BY MOUTH THREE TIMES DAILY NEEDED K Phos Hatillo-Sod Phos Di & Hatillo (Phospha 250 Neutral) 155-852-130 MG tablet Take 1 tablet by mouth in the morning and 1 tablet in the evening and 1 tablet before bedtime. KLOR-CON 20 MEQ ER tablet Take 20 mEq by mouth Daily metFORMIN (Glucophage) 500 MG tablet TAKE 1 TABLET (500 MG) BY MOUTH IN THE MORNING AND IN THE EVENING WITH MEALS 180 tablet 4 predniSONE (Deltasone) 10 MG tablet 4 tabs daily x2 days, then 3 tabs daily x2 days, then 2 tabs daily x2 days, then 1 tab daily x2 days Do not take with colchicine. Only start if gout flare not controlled with colchicine regimen. 20 tablet 0 SITagliptin (Januvia) 100 MG tablet Take 1 tablet (100 mg) by mouth in the morning. 100 tablet 4 triamcinolone (Kenalog) 0.1 % cream Apply to affected areas, up to twice a day when flared, do not use one the face, groin, or underarms, 30 day supply 454 g 11 [DISCONTINUED] methylPREDNISolone (Medrol Dospak) 4 MG tablets Follow schedule on MEDROL PACK package instructions to be used as directed 21 tablet 0 No current facility-administered medications on file prior to visit. I have reviewed and reconciled the history and medication list with the patient today. Allergies Allergen Reactions Other Other Reaction(s): Unknown Wound Dressing Adhesive Unknown Other Reaction(s): Unknown Social History Tobacco Use Smoking status: Never Passive exposure: Never Smokeless tobacco: Never Vaping Use Vaping status: Never Used Substance Use Topics Alcohol use: Never Drug use: Never Family History Problem Relation Name Age of Onset Cancer Mother Melanoma Mother Past Medical History: Diagnosis Date Abnormal Doppler ultrasound of carotid artery 05/23/2019 0-49% on right and 50-69% on left carotid. Carotid doppler Actinic keratosis Atypical nevus 07/21/2017 excised from left superior back Basal cell carcinoma Carotid atherosclerosis, bilateral COVID-19 09/12/2021 positive. 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 shows no obstructive uropathy, has increased prostate Melanoma (CMS/HCC) 02/10/2017 Ashwin IV, Breslow 0.55mm mid back Melanoma (CMS/HCC) 08/20/2017 Dr. Weathers on the back Melanoma (CMS/HCC) 2018 left upper, Dr. 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 Respiratory: Negative for shortness of breath. Cardiovascular: Negative for chest pain. Gastrointestinal: Negative for constipation, diarrhea, nausea and vomiting. Genitourinary: Negative for dysuria, frequency and hematuria. Musculoskeletal: Positive for back pain and joint swelling. Negative for gait problem. Neurological: Negative. Negative for dizziness and facial asymmetry. Objective Physical Exam Vitals reviewed. Constitutional: Appearance: Normal appearance. HENT: Head: Normocephalic. Cardiovascular: Rate and Rhythm: Normal rate and regular rhythm. Pulses: Normal pulses. Pulmonary: Effort: Pulmonary effort is normal. Breath sounds: Normal breath sounds. Musculoskeletal: Arms: Comments: Back Pain on Palpation Neurological: General: No focal deficit present. Mental Status: He is alert and oriented to person, place, and time. Psychiatric: Mood and Affect: Mood normal. Office Visit on 11/28/2024 Component Date Value Ref Range Status Hemoglobin A1C 11/28/2024 7.8 Final Assessment/Plan Problem List Items Addressed This Visit Acute gout - Primary Improved with Cochicine Type 2 diabetes mellitus without complication, without long-term current use of insulin No Tobacco use Follow ADA 1800 diet [...] ago has had 3 rounds. Since Thanksgiving. Diabetes mellitus ([facility]) Relevant Orders POCT Glycated hemoglobin, total (Completed) Ingrown right big toenail No drainage F/Up Dr. Mcrae Acute low back pain without sciatica PT referral made Stretching and core exercises advised OTC Tylenol and Ibuprofen Relevant Orders Ambulatory referral to Physical Therapy Follow up in about 3 months (around 02/27/2025) for Diabetes. documented in this encounter [facility] 11-23-2024 Telephone encounter Note Please let pt know final toe xray shows erosive arthritis, specifically gout. No mention of infection. Follow up as directed at time of office visit. [facility] 11-23-2024 Miscellaneous Notes Please let pt know final toe xray shows erosive arthritis, specifically gout. No mention of infection. Follow up as directed at time of office visit. documented in this encounter [facility] 11-23-2024 History of Present illness Narrative Images from the original note were not included. [address] , [address] [facility], [address] P: [phone] F: [phone] HPI Historian of HPI: patient Rocio Pang is a 79 y.o. male who presents today to the Urgent Care with the following complaints and denials which have been present for 3 days. Pt states I was seen here for the gout, it was looking great when on the prednisone but its bothering me again. C/O Denies Symptom Comments [] [x] Lesion [] [x] Rash [] [x] Lump [] [x] Bump [] [x] Depression [] [x] abscess [] [x] cellulitis [] [x] itching [x] [] pain Right great toe [x] [] burning [] [x] Sensation of insects crawling ROS A complete system ROS was performed and negative aside from the pertinent positives noted in the HPI and PE. PHYSICAL EXAM Examination: General Examination: General Examination: Alert, oriented, normal affect, well-appearing, in no acute distress, well developed, well nourished. Head: Normocephalic, atraumatic Eyes: Sclera anicteric. Neck/Thyroid: Neck supple, full range of motion Skin: mild erythema right great toe MTP joint to distal phalanx. No fissues, open areas or rashes noted to right foot and toe. Musculoskeletal: Foot: ROM of toes with tenderness ROM great toe. Swelling and tenderness localized to: distal phalanx of right great toe. Mild puffiness to MTP joint of right great toe Extremities: no clubbing, cyanosis Peripheral Pulses: 2+ posterior tibial, 2+ dorsalis pedis, nail david intact right right Neurologic: Sensory exam intact to right foot Psych: alert, oriented, cognitive function intact, cooperative with exam TREATMENT PLAN 1. Great toe pain, right (Primary) Xray right great toe obtained; prelim interp shows erosion to distal aspect of metatarsal. Consider infectious vs gouty erosion. Will await final report and contact pt with results. Discussed if infectious in nature will need to present to ER, otherwise discussed medication use and avoidance of another course of prednisone as pt has had x3 courses of prednisone since 10/03/24 and potential SE of frequent prednisone usage. Discussed medication alternatives, including indocin and colchicine. 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 Consulted pt's PCP office and discussed plan of care and starting pred vs colchicine vs indocin. This provider also consulted her collaborating physician, Dr Ayala. Discussed tx plan, including SE of each medication option and pt wishes to start colchicine but would like prednisone sent in as well in case colchicine does not resolve his sx. Discussed SE of use of both medications, must monitor BS if starts prednisone, do not take prednisone and colchicine together and pt aware of SE of continued use of prednisone, including adrenal suppression, immunosuppression, elevated blood sugars and Pt verb understanding and continues to demand prednisone be sent in as he is leaving to go on a fishing trip in a week and needs to be able to walk . Pt MUST contact PCP today to obtain follow up over next 3-5 days for recheck. Immediate eval if new or worsening sx. - XR toes 2+ views right - colchicine 0.6 MG tablet; 2 tabs (1.2mg) x1 then 1 tab (0.6mg) x1 1 hour later. Dispense: 3 tablet; Refill: 11 - predniSONE (Deltasone) 10 MG tablet; 4 tabs daily x2 days, then 3 tabs daily x2 days, then 2 tabs daily x2 days, then 1 tab daily x2 days Do not take with colchicine. Only start if gout flare not controlled with colchicine regimen. Dispense: 20 tablet; Refill: 0 2. Hx of gout See 1. - colchicine 0.6 MG tablet; 2 tabs (1.2mg) x1 then 1 tab (0.6mg) x1 1 hour later. Dispense: 3 tablet; Refill: 11 - predniSONE (Deltasone) 10 MG tablet; 4 tabs daily x2 days, then 3 tabs daily x2 days, then 2 tabs daily x2 days, then 1 tab daily x2 days Do not take with colchicine. Only start if gout flare not controlled with colchicine regimen. Dispense: 20 tablet; Refill: 0 documented in this encounter [facility] 10-12-2024 History of Present illness Narrative Associated Problem(s): Acute gout Avoid protein meat Increase fluids Associated Problem(s): Ingrown right big toenail Increase fluids Watch for infection Images from the original note were not included. Subjective Patient ID: Rocio Pang is a 78 y.o. male who presents for Gout. Pt is here for visit due to having gout in his right foot, severe pain is no longer there but still having pain especially in his big toe right foot Pt was on a prednisone mildred (this was given to him by dr mcrae), took last pill on Wednesday does not think gout is all the way gone yet Current Outpatient Medications on File Prior to Visit Medication Sig Dispense Refill albuterol HFA 90 mcg/act inhaler INHALE 2 PUFFS BY MOUTH 4 TIMES A DAY NEEDED Alrex 0.2 % suspension ophthalmic suspension Administer 1 drop into both eyes in the morning and 1 drop before bedtime. Ascorbic Acid (vitamin C) 100 MG tablet Take 100 mg by mouth Daily aspirin 81 MG EC tablet Take 1 tablet (81 mg) by mouth Daily atorvastatin (Lipitor) 40 MG tablet Take 1 tablet (40 mg) by mouth Daily 30 tablet 11 baclofen (Lioresal) 10 MG tablet every 8 (eight) hours. cholecalciferol (Vitamin D-3) 50 MCG (2000 UT) capsule Take by mouth. Continuous Glucose Transfer Knitter (FreeStyle Mayito 2 Ehrhardt) device 1 Device Daily 1 each 0 Continuous Glucose Sensor (FreeStyle Mayito 2 Sensor) misc CHANGE EVERY 2 WEEKS DIRECTED 2 each 2 HYDROcodone-acetaminophen (Greenwood) 5-325 MG tablet TAKE 1-2 TABLET BY MOUTH THREE TIMES DAILY NEEDED K Phos [place]-Sod Phos Di & Hatillo (Phospha 250 Neutral) 155-852-130 MG tablet Take 1 tablet by mouth in the morning and 1 tablet in the evening and 1 tablet before bedtime. KLOR-CON 20 MEQ ER tablet Take 20 mEq by mouth Daily metFORMIN (Glucophage) 500 MG tablet TAKE 1 TABLET (500 MG) BY MOUTH IN THE MORNING AND IN THE EVENING WITH MEALS 180 tablet 4 methylPREDNISolone (Medrol Dospak) 4 MG tablets Follow schedule on MEDROL PACK package instructions to be used as directed 21 tablet 0 SITagliptin (Januvia) 100 MG tablet Take 1 tablet (100 mg) by mouth in the morning. 100 tablet 4 triamcinolone (Kenalog) 0.1 % cream Apply to affected areas, up to twice a day when flared, do not use one the face, groin, or underarms, 30 day supply 454 g 11 [DISCONTINUED] allopurinol (Zyloprim) 100 MG tablet Take 1 tablet (100 mg) by mouth Daily 90 tablet 0 [DISCONTINUED] predniSONE (Deltasone) 20 MG tablet 2 tabs x 3, 1 x 3 days, 1/2 tab x 4 days then stop 20 tablet 0 No current facility-administered medications on file prior to visit. I have reviewed and reconciled the history and medication list with the patient today. Allergies Allergen Reactions Other Other Reaction(s): Unknown Wound Dressing Adhesive Unknown Other Reaction(s): Unknown Social History Tobacco Use Smoking status: Never Passive exposure: Never Smokeless tobacco: Never Vaping Use Vaping status: Never Used Substance Use Topics Alcohol use: Never Drug use: Never Family History Problem Relation Name Age of Onset Cancer Mother Melanoma Mother Past Medical History: Diagnosis Date Abnormal Doppler ultrasound of carotid artery 05/23/2019 0-49% on right and 50-69% on left carotid. Carotid doppler Actinic keratosis Atypical nevus 07/21/2017 excised from left superior back Basal cell carcinoma Carotid atherosclerosis, bilateral COVID-19 09/12/2021 positive. 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 shows no obstructive uropathy, has increased prostate Melanoma (CMS/HCC) 02/10/2017 Sahwin IV, Breslow 0.55mm mid back Melanoma (CMS/HCC) 08/20/2017 Dr. Weathesr on the back Melanoma (CMS/HCC) 2017 left upper, Dr. 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 Skin: Comments: Right great toe with slight redness at nail bed and skin Neurological: Mental Status: He is alert. Assessment/Plan Problem List Items Addressed This Visit Acute gout - Primary Avoid protein meat Increase fluids Relevant Medications allopurinol (Zyloprim) 100 MG tablet Ingrown right big toenail Increase fluids Watch for infection No follow-ups on file. documented in this encounter [facility] 09-27-2024 History of Present illness Narrative Patient: Rocio Pang : 1945 PCP: Natan Keyes MD SUBJECTIVE This is a 78 y.o. male that presents today for a chief complaint of pain and redness of the right great toe joint for the past week. Patient states he began a light dose of medication for few days and did get a little better but has since returned. Has positive history gout states it is very painful and up to an denies nausea vomiting chills or fever Patient is type 2 diabetic Allergies: Allergies Allergen Reactions Other Other Reaction(s): Unknown Wound Dressing Adhesive Unknown Other Reaction(s): Unknown Past Medical History: Past Medical History: Diagnosis Date Abnormal Doppler ultrasound of carotid artery 05/23/2019 0-49% on right and 50-69% on left carotid. Carotid doppler Actinic keratosis Atypical nevus 07/21/2017 excised from left superior back Basal cell carcinoma Carotid atherosclerosis, bilateral COVID-19 09/12/2021 positive. 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 shows no obstructive uropathy, has increased prostate Melanoma ([facility]) 02/10/2017 Ashwin IV, Breslow 0.55mm mid back Melanoma ([facility]) 08/20/2017 Dr. Weathers on the back Melanoma ([facility]) 2018 left upper, Dr. Weathers Melanoma in situ ([facility]) 2016 right taoism Prostate cancer ([facility]) Type II diabetes mellitus ([facility]) Medications: Current Outpatient Medications: albuterol HFA 90 mcg/act inhaler, INHALE 2 PUFFS BY MOUTH 4 TIMES A DAY NEEDED, Disp: , Rfl: allopurinol (Zyloprim) 100 MG tablet, Take 1 tablet (100 mg) by mouth Daily, Disp: 90 tablet, Rfl: 0 Alrex 0.2 % suspension ophthalmic suspension, Administer 1 drop into both eyes in the morning and 1 drop before bedtime., Disp: , Rfl: Ascorbic Acid (vitamin C) 100 MG tablet, Take 100 mg by mouth Daily, Disp: , Rfl: aspirin 81 MG EC tablet, Take 1 tablet (81 mg) by mouth Daily, Disp: , Rfl: atorvastatin (Lipitor) 40 MG tablet, Take 1 tablet (40 mg) by mouth Daily, Disp: 30 tablet, Rfl: 11 baclofen (Lioresal) 10 MG tablet, every 8 (eight) hours., Disp: , Rfl: cholecalciferol (Vitamin D-3) 50 MCG (2000 UT) capsule, Take by mouth., Disp: , Rfl: Continuous Glucose Transfer Knitter (FreeStyle Mayito 2 Ehrhardt) device, 1 Device Daily, Disp: 1 each, Rfl: 0 Continuous Glucose Sensor (FreeStyle Mayito 2 Sensor) [facility], CHANGE EVERY 2 WEEKS DIRECTED, Disp: 2 each, Rfl: 2 HYDROcodone-acetaminophen (Greenwood) 5-325 MG tablet, TAKE 1-2 TABLET BY MOUTH THREE TIMES DAILY NEEDED, Disp: , Rfl: K Phos [place]-Sod Phos Di & Hatillo (Phospha 250 Neutral) 155-852-130 MG tablet, Take 1 tablet by mouth in the morning and 1 tablet in the evening and 1 tablet before bedtime., Disp: , Rfl: KLOR-CON 20 MEQ ER tablet, Take 20 mEq by mouth Daily, Disp: , Rfl: metFORMIN (Glucophage) 500 MG tablet, TAKE 1 TABLET (500 MG) BY MOUTH IN THE MORNING AND IN THE EVENING WITH MEALS, Disp: 180 tablet, Rfl: 4 predniSONE (Deltasone) 20 MG tablet, 2 tabs x 3, 1 x 3 days, 1/2 tab x 4 days then stop, Disp: 20 tablet, Rfl: 0 SITagliptin (Januvia) 100 MG tablet, Take 1 tablet (100 mg) by mouth in the morning., Disp: 100 tablet, Rfl: 4 triamcinolone (Kenalog) 0.1 % cream, Apply to affected areas, up to twice a day when flared, do not use one the face, groin, or underarms, 30 day supply, Disp: 454 g, Rfl: 11 ROS: General: denies fever, chills, fatigue, malaise GI: denies abdominal pain or ulcerations with anti-inflammatory medication OBJECTIVE LE EXAM: DERM: Positive hair growth to b/l feet with good skin turgor noted. Negative openings in skin. Positive podagra to the right 1st MPJ with negative red streaking or crepitus to skin VASC: Palpable pedal pulsed b/l with warm to cool tibia to toes b/l NEURO: Gross sensation i greatly diminished digits 1-10 and b/l feet ORTHO: +5/5 DF/PF/IN/EV right, +5/5 DF/PF/IN/EV left. 20 degrees inversion and 10 degrees eversion STJ b/l. Ankle ROM less than 10 degrees b/l. Positive pain on palpation to right 1st MPJ XRAY: US: ASSESSMENT 1. Acute gout of right foot, unspecified cause 2. 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 and also discussed gout detail with patient today Prescription today for Medrol pack Patient contact Podiatry if no improvement in the next 72 hours and may consider possible injection which was offered today of steroid however if not better in the next 3 days to contact Podiatry for same-day appointment for possible steroid injections Merrill Mcrae DPM documented in this encounter [facility] 09-27-2024 History of Present illness Narrative Patient: Rocio Pang : 1945 PCP: Natan Keyes MD SUBJECTIVE This is a 78 y.o. male that presents today for a chief complaint of pain and redness of the right great toe joint for the past week. Patient states he began a light dose of medication for few days and did get a little better but has since returned. Has positive history gout states it is very painful and up to an denies nausea vomiting chills or fever Patient is type 2 diabetic Allergies: Allergies Allergen Reactions Other Other Reaction(s): Unknown Wound Dressing Adhesive Unknown Other Reaction(s): Unknown Past Medical History: Past Medical History: Diagnosis Date Abnormal Doppler ultrasound of carotid artery 05/23/2019 0-49% on right and 50-69% on left carotid. Carotid doppler Actinic keratosis Atypical nevus 07/21/2017 excised from left superior back Basal cell carcinoma Carotid atherosclerosis, bilateral COVID-19 09/12/2021 positive. 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 shows no obstructive uropathy, has increased prostate Melanoma (CMS/HCC) 02/10/2017 Ashwin IV, Breslow 0.55mm mid back Melanoma (CMS/HCC) 08/20/2017 Dr. Weathers on the back Melanoma (CMS/HCC) 2018 left upper, Dr. 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 Prostate cancer (CMS/HCC) Type II diabetes mellitus (CMS/HCC) Medications: Current Outpatient Medications: albuterol HFA 90 mcg/act inhaler, INHALE 2 PUFFS BY MOUTH 4 TIMES A DAY NEEDED, Disp: , Rfl: allopurinol (Zyloprim) 100 MG tablet, Take 1 tablet (100 mg) by mouth Daily, Disp: 90 tablet, Rfl: 0 Alrex 0.2 % suspension ophthalmic suspension, Administer 1 drop into both eyes in the morning and 1 drop before bedtime., Disp: , Rfl: Ascorbic Acid (vitamin C) 100 MG tablet, Take 100 mg by mouth Daily, Disp: , Rfl: aspirin 81 MG EC tablet, Take 1 tablet (81 mg) by mouth Daily, Disp: , Rfl: atorvastatin (Lipitor) 40 MG tablet, Take 1 tablet (40 mg) by mouth Daily, Disp: 30 tablet, Rfl: 11 baclofen (Lioresal) 10 MG tablet, every 8 (eight) hours., Disp: , Rfl: cholecalciferol (Vitamin D-3) 50 MCG (2000 UT) capsule, Take by mouth., Disp: , Rfl: Continuous Glucose Transfer Knitter (FreeStyle Mayito 2 Ehrhardt) device, 1 Device Daily, Disp: 1 each, Rfl: 0 Continuous Glucose Sensor (FreeStyle Mayito 2 Sensor) [facility], CHANGE EVERY 2 WEEKS DIRECTED, Disp: 2 each, Rfl: 2 HYDROcodone-acetaminophen (Greenwood) 5-325 MG tablet, TAKE 1-2 TABLET BY MOUTH THREE TIMES DAILY NEEDED, Disp: , Rfl: K Phos [place]-Sod Phos Di & Hatillo (Phospha 250 Neutral) 155-852-130 MG tablet, Take 1 tablet by mouth in the morning and 1 tablet in the evening and 1 tablet before bedtime., Disp: , Rfl: KLOR-CON 20 MEQ ER tablet, Take 20 mEq by mouth Daily, Disp: , Rfl: metFORMIN (Glucophage) 500 MG tablet, TAKE 1 TABLET (500 MG) BY MOUTH IN THE MORNING AND IN THE EVENING WITH MEALS, Disp: 180 tablet, Rfl: 4 predniSONE (Deltasone) 20 MG tablet, 2 tabs x 3, 1 x 3 days, 1/2 tab x 4 days then stop, Disp: 20 tablet, Rfl: 0 SITagliptin (Januvia) 100 MG tablet, Take 1 tablet (100 mg) by mouth in the morning., Disp: 100 tablet, Rfl: 4 triamcinolone (Kenalog) 0.1 % cream, Apply to affected areas, up to twice a day when flared, do not use one the face, groin, or underarms, 30 day supply, Disp: 454 g, Rfl: 11 ROS: General: denies fever, chills, fatigue, malaise GI: denies abdominal pain or ulcerations with anti-inflammatory medication OBJECTIVE LE EXAM: DERM: Positive hair growth to b/l feet with good skin turgor noted. Negative openings in skin. Positive podagra to the right 1st MPJ with negative red streaking or crepitus to skin VASC: Palpable pedal pulsed b/l with warm to cool tibia to toes b/l NEURO: Gross sensation i greatly diminished digits 1-10 and b/l feet ORTHO: +5/5 DF/PF/IN/EV right, +5/5 DF/PF/IN/EV left. 20 degrees inversion and 10 degrees eversion STJ b/l. Ankle ROM less than 10 degrees b/l. Positive pain on palpation to right 1st MPJ XRAY: US: ASSESSMENT 1. Acute gout of right foot, unspecified cause 2. Type 2 diabetes mellitus without complication, unspecified whether nursing home insulin use ([facility]) PLAN Patient to increased fluid intake of water over the next 24 hours. and also discussed gout detail with patient today Prescription today for Medrol pack Patient contact Podiatry if no improvement in the next 72 hours and may consider possible injection which was offered today of steroid however if not better in the next 3 days to contact Podiatry for same-day appointment for possible steroid injections Merrill Mcrae DPM documented in this encounter [facility] 09-19-2024 History of Present illness Narrative Associated Problem(s): TIA (transient ischemic attack) Consider Plavix Consider Xarelto Consider Eliquis Associated Problem(s): Shortness of breath More new SOB has worsened Does this Eforce and no chest pain, but SOB is improved, since doing more. Works out 5 days a week and has increased work load Images from the original note were not included. Subjective Patient ID: Rocio Pang is a 78 y.o. male who presents for go over CT results. Pt is here to discuss the MRI of brain he recently had done Also discuss the stress test results(in his chart Reviewed Stress test and MRI with patient Current Outpatient Medications on File Prior to Visit Medication Sig Dispense Refill albuterol HFA 90 mcg/act inhaler INHALE 2 PUFFS BY MOUTH 4 TIMES A DAY NEEDED allopurinol (Zyloprim) 100 MG tablet Take 1 tablet (100 mg) by mouth Daily 90 tablet 0 Alrex 0.2 % suspension ophthalmic suspension Administer 1 drop into both eyes in the morning and 1 drop before bedtime. Ascorbic Acid (vitamin C) 100 MG tablet Take 100 mg by mouth Daily atorvastatin (Lipitor) 40 MG tablet Take 1 tablet (40 mg) by mouth Daily 30 tablet 11 baclofen (Lioresal) 10 MG tablet every 8 (eight) hours. cholecalciferol (Vitamin D-3) 50 MCG (2000 UT) capsule Take by mouth. Continuous Glucose Sensor (FreeStyle Mayito 2 Sensor) misc CHANGE EVERY 2 WEEKS DIRECTED 2 each 2 HYDROcodone-acetaminophen (Greenwood) 5-325 MG tablet TAKE 1-2 TABLET BY MOUTH THREE TIMES DAILY NEEDED K Phos [place]-Sod Phos Di & Hatillo (Phospha 250 Neutral) 155-852-130 MG tablet Take 1 tablet by mouth in the morning and 1 tablet in the evening and 1 tablet before bedtime. KLOR-CON 20 MEQ ER tablet Take 20 mEq by mouth Daily metFORMIN (Glucophage) 500 MG tablet TAKE 1 TABLET (500 MG) BY MOUTH IN THE MORNING AND IN THE EVENING WITH MEALS 180 tablet 4 predniSONE (Deltasone) 20 MG tablet 2 tabs x 3, 1 x 3 days, 1/2 tab x 4 days then stop 20 tablet 0 SITagliptin (Januvia) 100 MG tablet Take 1 tablet (100 mg) by mouth in the morning. 100 tablet 4 triamcinolone (Kenalog) 0.1 % cream Apply to affected areas, up to twice a day when flared, do not use one the face, groin, or underarms, 30 day supply 454 g 11 [DISCONTINUED] triamcinolone (Kenalog) 0.1 % cream Apply to affected areas on arms, up to twice a day when flared, do not use one the face, groin, or underarms, 30 day supply 80 g 0 No current facility-administered medications on file prior to visit. I have reviewed and reconciled the history and medication list with the patient today. Allergies Allergen Reactions Other Other Reaction(s): Unknown Wound Dressing Adhesive Unknown Other Reaction(s): Unknown Social History Tobacco Use Smoking status: Never Passive exposure: Never Smokeless tobacco: Never Vaping Use Vaping status: Never Used Substance Use Topics Alcohol use: Never Drug use: Never Family History Problem Relation Name Age of Onset Cancer Mother Melanoma Mother Past Medical History: Diagnosis Date Abnormal Doppler ultrasound of carotid artery 05/23/2019 0-49% on right and 50-69% on left carotid. Carotid doppler Actinic keratosis Atypical nevus 07/21/2017 excised from left superior back Basal cell carcinoma Carotid atherosclerosis, bilateral COVID-19 09/12/2021 positive. 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 shows no obstructive uropathy, has increased prostate Melanoma (CMS/HCC) 02/10/2017 Ashwin IV, Breslow 0.55mm mid back Melanoma (CMS/HCC) 08/20/2017 Dr. Weathers on the back Melanoma (CMS/HCC) 2018 left upper, Dr. 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 Objective Physical Exam Constitutional: Appearance: Normal appearance. Neurological: General: No focal deficit present. Mental Status: He is alert and oriented to person, place, and time. Cranial Nerves: No cranial nerve deficit. Sensory: No sensory deficit. Assessment/Plan Problem List Items Addressed This Visit Shortness of breath - Primary More new SOB has worsened Does this Eforce and no chest pain, but SOB is improved, since doing more. Works out 5 days a week and has increased work load TIA (transient ischemic attack) Consider Plavix Consider Xarelto Consider Eliquis Relevant Medications aspirin 81 MG EC tablet Other Visit Diagnoses Subcortical microvascular ischemic occlusive disease Relevant Medications aspirin 81 MG EC tablet No follow-ups on file. documented in this encounter [facility] 09-18-2024 Nuclear medicine Diagnostic study note [facility] [address] Nuclear Medicine Report Signed Patient: Rocio Pang MR#: [id number] : 1945 Acct:[id number] Age/Sex: 78 / M ADM Date: 5 Loc: [place] Room: Type: [facility] Attending Dr: Natan Keyes MD Copies to: MD Natan Weber MD~ Ordering Provider: Natan Keyes MD Date of Service: 09/18/24 NM/NM eliud perf SPECT rest & str: R07.89 NUCLEAR MYOCARDIAL PERFUSION DATE OF [...] were reviewed as well as the computer quantification.? There was uniform uptake of the radiotracer with no perfusion defects identified.? On the gated portion of the study, there was uniform thickening with an overall ejection fraction calculated at 65%.? TID score was within normal limits (0.93). CONCLUSION: 1. Gated spect Sestamibi study is within normal limits. 2. Left ventricular function was preserved. Impression dictated by: Irina Ann M.D.09/18/2024 4:06 PM Dictation Location: [facility] Transcribed By: CASI 09/18/24 1606 Dictated By: Irina Ann MD 09/18/24 1604 Signed By: 09/18/24 160 [facility] Work Phone: 09-13-2024 History of Present illness Narrative Images from the original note were not included. Subjective Patient ID: Rocio Pang is a 78 y.o. male who presents for gout flare up. Rocio presents today for toe pain after he had a gout flare up a week ago. He went to Urgent Care and was put on a steroid. He also saw DR. Mcrae and he removed part of the toe nail. Current Outpatient Medications on File Prior to Visit Medication Sig Dispense Refill albuterol HFA 90 mcg/act inhaler INHALE 2 PUFFS BY MOUTH 4 TIMES A DAY NEEDED allopurinol (Zyloprim) 100 MG tablet Take 1 tablet (100 mg) by mouth Daily 90 tablet 0 Alrex 0.2 % suspension ophthalmic suspension Administer 1 drop into both eyes in the morning and 1 drop before bedtime. Ascorbic Acid (vitamin C) 100 MG tablet Take 100 mg by mouth Daily atorvastatin (Lipitor) 40 MG tablet Take 1 tablet (40 mg) by mouth Daily 30 tablet 11 baclofen (Lioresal) 10 MG tablet every 8 (eight) hours. cholecalciferol (Vitamin D-3) 50 MCG (2000 UT) capsule Take by mouth. Continuous Glucose Sensor (FreeStyle Mayito 2 Sensor) misc CHANGE EVERY 2 WEEKS DIRECTED 2 each 2 HYDROcodone-acetaminophen (Greenwood) 5-325 MG tablet TAKE 1-2 TABLET BY MOUTH THREE TIMES DAILY NEEDED K Phos [place]-Sod Phos Di & Hatillo (Phospha 250 Neutral) 155-852-130 MG tablet Take 1 tablet by mouth in the morning and 1 tablet in the evening and 1 tablet before bedtime. KLOR-CON 20 MEQ ER tablet Take 20 mEq by mouth Daily metFORMIN (Glucophage) 500 MG tablet TAKE 1 TABLET (500 MG) BY MOUTH IN THE MORNING AND IN THE EVENING WITH MEALS 180 tablet 4 SITagliptin (Januvia) 100 MG tablet Take 1 tablet (100 mg) by mouth in the morning. 100 tablet 4 triamcinolone (Kenalog) 0.1 % cream Apply to affected areas, up to twice a day when flared, do not use one the face, groin, or underarms, 30 day supply 454 g 11 [DISCONTINUED] triamcinolone (Kenalog) 0.1 % cream Apply to affected areas on arms, up to twice a day when flared, do not use one the face, groin, or underarms, 30 day supply 80 g 0 No current facility-administered medications on file prior to visit. I have reviewed and reconciled the history and medication list with the patient today. Allergies Allergen Reactions Other Other Reaction(s): Unknown Wound Dressing Adhesive Unknown Other Reaction(s): Unknown Social History Tobacco Use Smoking status: Never Passive exposure: Never Smokeless tobacco: Never Vaping Use Vaping status: Never Used Substance Use Topics Alcohol use: Never Drug use: Never Family History Problem Relation Name Age of Onset Cancer Mother Melanoma Mother Past Medical History: Diagnosis Date Abnormal Doppler ultrasound of carotid artery 05/23/2019 0-49% on right and 50-69% on left carotid. Carotid doppler Actinic keratosis Atypical nevus 07/21/2017 excised from left superior back Basal cell carcinoma Carotid atherosclerosis, bilateral COVID-19 09/12/2021 positive. 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 shows no obstructive uropathy, has increased prostate Melanoma (CMS/HCC) 02/10/2017 Ashwin IV, Breslow 0.55mm mid back Melanoma (CMS/HCC) 08/20/2017 Dr. Weathers on the back Melanoma (CMS/HCC) 2018 left upper, Dr. 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 HENT: Negative. Eyes: Negative. Respiratory: Negative. Cardiovascular: Negative. Gastrointestinal: Negative. Genitourinary: Negative. Musculoskeletal: Positive for gait problem. Right great toe with redness, pain Skin: Negative. Psychiatric/Behavioral: Negative. Hematological: Negative. Endocrine: Negative. Allergic/Immunologic: Negative. Objective Physical Exam Vitals reviewed. Constitutional: Appearance: Normal appearance. HENT: Head: Normocephalic and atraumatic. Right Ear: External ear normal. Left Ear: External ear normal. Nose: Nose normal. Mouth/Throat: Mouth: Mucous membranes are moist. Eyes: Conjunctiva/sclera: Conjunctivae normal. Cardiovascular: Rate and Rhythm: Normal rate and regular rhythm. Heart sounds: Normal heart sounds. Pulmonary: Effort: Pulmonary effort is normal. Breath sounds: Normal breath sounds. Abdominal: Palpations: Abdomen is soft. Musculoskeletal: Cervical back: Normal range of motion and neck supple. Comments: Right great toe with edema, redness, warmth, painful with palpation Skin: General: Skin is warm and dry. Neurological: General: No focal deficit present. Mental Status: He is alert. Psychiatric: Mood and Affect: Mood normal. Behavior: Behavior normal. Judgment: Judgment normal. Assessment/Plan 1. Acute gout, unspecified cause, unspecified site (Primary) Discussed diagnosis, use of prednisone and its most common side effects. He is advised to continue the current dose of allopurinol as ordered. A uric acid level is ordered today. We will adjust the dose dependent on his next level. Previous level on 03/06/24. URIC ACID 3.5 - 7.2 mg/dL 7.6 High - Uric acid; Future - predniSONE (Deltasone) 20 MG tablet; 2 tabs x 3, 1 x 3 days, 1/2 tab x 4 days then stop Dispense: 20 tablet; Refill: 0 - Uric acid 2. Age-related cognitive decline Discussed age related cognitive decline. He is worried about developing alzheimers dementia like his brother did. We discussed possible use of namenda or aricept. He does not want to do anything at this time. He wishes to monitor and observe his symptoms for now and he will do a follow up with Dr. Keyes in the future to discuss. 3. Malignant neoplasm of prostate (CMS/HCC) Stable. 4. Type 2 diabetes mellitus with other specified complication (CMS/HCC) He reports that he continues with metformin once daily. 5. Hyperlipidemia, unspecified (CMS/HCC) He has not been using a statin at this time. 6. Malignant melanoma of other part of trunk (CMS/HCC) Stable. 7. Type 2 diabetes mellitus with diabetic chronic kidney disease ([facility]/HCC) Stable, 08/28/24 Glucose 65 - 99 mg/dL 148 High 8. Chronic kidney disease, stage 2 (mild): stable. 08/28/24 BUN 7 - 25 mg/dL 20 16 Creatinine 0.70 - 1.28 mg/dL 1.21 1.05 EGFR > OR = 60 mL/min/1.73m2 61 >60 R 73 62 R 66 R 56 Low R >60 R BUN/CREATININE RATIO 6 - 22 (calc) SEE NOTE: SEE NOTE: Comment: Not Reported: BUN and Creatinine are within reference range. Sodium 135 - 146 mmol/L 139 138 Potassium, Bld 3.5 - 5.3 mmol/L 4.7 4.3 Chloride 98 - 110 mmol/L 100 104 Carbon Dioxide 20 - 32 mmol/L 30 26 Calcium 8.6 - 10.3 mg/dL 9.4 9.4 PROTEIN, TOTAL 6.1 - 8.1 g/dL 7.3 7.2 ALBUMIN 3.6 - 5.1 g/dL 4.6 4.5 GLOBULIN 1.9 - 3.7 g/dL (calc) 2.7 2.7 ALBUMIN/GLOBULIN RATIO 1.0 - 2.5 (calc) 1.7 1.7 BILIRUBIN, TOTAL 0.2 - 1.2 mg/dL 0.7 0.4 ALKALINE PHOSPHATASE 35 - 144 U/L 52 49 AST 10 - 35 U/L 17 17 ALT 9 - 46 U/L 19 18 TBH EGFR-NON AF SWEDISH 55 Low R No follow-ups on file. documented in this encounter [facility] 09-13-2024 Instructions Leonie Espitia NP - 09/13/2024 1:30 PM EST Prednisone added. Uric acid level ordered. documented in this encounter [facility] 09-05-2024 History of Present illness Narrative Patient: Rocio Pang : 1945 PCP: Natan Keyes MD SUBJECTIVE This is a 78 y.o. male that presents today with a CC of elongated, thick nails. Pt states nails have been elongated and thick for many years and cause pain with ambulation in shoegear. Pt has tried previous treatment with minimal relief. Pt presents today for nail care and treatment. Patient is seen in 2023 for left plantar fasciitis with 1 injection states he still has some achiness from time to time and does stretching with positive improvement. States minimal to no pain today and uses [employer] shoes with positive improvement Allergies: Allergies Allergen Reactions Other Other Reaction(s): Unknown Wound Dressing Adhesive Unknown Other Reaction(s): Unknown Past Medical History: Past Medical History: Diagnosis Date Abnormal Doppler ultrasound of carotid artery 05/23/2019 0-49% on right and 50-69% on left carotid. Carotid doppler Actinic keratosis Atypical nevus 07/21/2017 excised from left superior back Basal cell carcinoma Carotid atherosclerosis, bilateral COVID-19 09/12/2021 positive. 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 shows no obstructive uropathy, has increased prostate Melanoma ([facility]) 02/10/2017 Ashwin IV, Breslow 0.55mm mid back Melanoma (CMS/HCC) 08/20/2017 Dr. Weathers on the back Melanoma ([facility]/HCC) 2018 left upper, Dr. Weathers Melanoma in situ ([facility]) 2016 right taoism Prostate cancer ([facility]/HCC) Type II diabetes mellitus (CMS/HCC) Medications: Current Outpatient Medications: albuterol HFA 90 mcg/act inhaler, INHALE 2 PUFFS BY MOUTH 4 TIMES A DAY NEEDED, Disp: , Rfl: allopurinol (Zyloprim) 100 MG tablet, Take 1 tablet (100 mg) by mouth Daily, Disp: 90 tablet, Rfl: 0 Alrex 0.2 % suspension ophthalmic suspension, Administer 1 drop into both eyes in the morning and 1 drop before bedtime., Disp: , Rfl: Ascorbic Acid (vitamin C) 100 MG tablet, Take 100 mg by mouth Daily, Disp: , Rfl: atorvastatin (Lipitor) 40 MG tablet, Take 1 tablet (40 mg) by mouth Daily, Disp: 30 tablet, Rfl: 11 baclofen (Lioresal) 10 MG tablet, every 8 (eight) hours., Disp: , Rfl: cholecalciferol (Vitamin D-3) 50 MCG (1999) capsule, Take by mouth., Disp: , Rfl: Continuous Glucose Sensor (FreeStyle Mayito 2 Sensor) [facility], CHANGE EVERY 2 WEEKS DIRECTED, Disp: 2 each, Rfl: 2 HYDROcodone-acetaminophen ([place]wood) 5-325 MG tablet, TAKE 1-2 TABLET BY MOUTH THREE TIMES DAILY NEEDED, Disp: , Rfl: K Phos [place]-Sod Phos Di & Hatillo (Phospha 250 Neutral) 155-852-130 MG tablet, Take 1 tablet by mouth in the morning and 1 tablet in the evening and 1 tablet before bedtime., Disp: , Rfl: KLOR-CON 20 MEQ ER tablet, Take 20 mEq by mouth Daily, Disp: , Rfl: metFORMIN (Glucophage) 500 MG tablet, TAKE 1 TABLET (500 MG) BY MOUTH IN THE MORNING AND IN THE EVENING WITH MEALS, Disp: 180 tablet, Rfl: 4 SITagliptin (Januvia) 100 MG tablet, Take 1 tablet (100 mg) by mouth in the morning., Disp: 100 tablet, Rfl: 4 triamcinolone (Kenalog) 0.1 % cream, Apply to affected areas, up to twice a day when flared, do not use one the face, groin, or underarms, 30 day supply, Disp: 454 g, Rfl: 11 triamcinolone (Kenalog) 0.1 % cream, Apply to affected areas on arms, up to twice a day when flared, do not use one the face, groin, or underarms, 30 day supply, Disp: 80 g, Rfl: 0 Social History: Social History Socioeconomic History Marital status: Spouse name: Not on file Number of children: Not on file Years of education: Not on file Highest education level: Not on file Occupational History Not on file Tobacco Use Smoking status: Never Passive exposure: Never Smokeless tobacco: Never Vaping Use Vaping status: Never Used Substance and Sexual Activity Alcohol use: Never Drug use: Never Sexual activity: Defer Other Topics Concern Not on file Social History Narrative Not on file Social Drivers of Health Financial Resource Strain: Not on file Food Insecurity: Not on file Transportation Needs: Not on file Physical Activity: Not on file Stress: Not on file Social Connections: Not on file Intimate Partner Violence: Not on file Housing Stability: Not on file ROS: General: denies fever, chills, fatigue, malaise GI: denies abdominal pain or ulcerations with anti-inflammatory medication OBJECTIVE LE EXAM: DERM: Elongated thick yellow crumbly nails digits 1 through 10. Positive hair growth b/l feet. VASC: Positive palpable pedal pulses bilaterally NEURO: Gross sensation intact to bilateral feet ORTHO: Positive pain on palpation to nails 1 through 10 Minimal to no pain on palpation left medial calcaneal tubercle Ankle range of motion less than 10 degrees dorsiflexion bilaterally ASSESSMENT 1. Plantar fasciitis 2. 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 Pain due to onychomycosis of toenails of both feet 4. Contracture of left ankle PLAN Discussed proper foot care with patient today. Debride nails in length and thickness digits 1 through 10 Patient may stretching boot p.r.n. and discuss stretching when symptoms started to return and also take anti-inflammatories periodically when symptoms start to return and if worsens contact Podiatry for follow up and possible follow up injection Merrill Mcrae DPM documented in this encounter [facility] 08-18-2024 Evaluation note Diagnosis Onset Date Resolution Gouty arthritis of right great toe acute August 18, 2 024 9:15am [facility] Work Phone: [phone] 364-102612-23-2024 History of Present illness Narrative* Natan Keyes MD - 08/14/2024 10:07 AM ESTAssociated Problem(s): Abnormal CT of brain MRI needed: Sella contents not visualized Recent TIA sxs: Baby aspirin Better control of sugars * Natan Keyes MD - 08/14/2024 10:03 AM ESTAssociated Problem(s): Other chest pain Signs and symptoms discussed of AL Hold off exercise Possible referral to cardiology * Natan Keyes MD - 08/14/2024 9:53 AM ESTAssociated Problem(s): Malignant melanoma of other part of trunk (CMS/HCC) F/up with derm * Natan Keyes MD - 08/14/2024 9:52 AM ESTAssociated Problem(s): Type 2 diabetes mellitus without complication, without long-term current useof insulin (CMS/[facility]) No Tobacco use Follow ADA 1800 diet low carbohydrate Continue Med Compliance Goal LDL less than 100Goal BP 130/80 Goal HgbA1c < 7.0% Monitor Feet, monitor for infection Needs Exercise Yearly eye exams Prior to your visit today we reviewed your chart and outlined testing and treatment needed foryour care. Reviewed poissble complications of diabetes including, loss of vision, kidney failure and increased risk of heart attacks and stroke. We made recommendations on how to control your blood sugars, and minimize your risk of these complications. We discussed your current barriers to a healthy living and importance of healthy diet and exercise. * Natan Keyes MD - 08/14/2024 9:52 AM ESTAssociated Problem(s): Medicare annual wellness visit, subsequent Colonoscopy every 10 years or Cologuard every 3 years ages 50-75 Flu Vaccine yearly Pneumovax and Prevnar Mammo yearly for women and PSA yearly for men Labs/Screening yearly to rule out Diabetes, Chronic Kidney disease and liver disease Hepatitis Screen forat risk populations Shingles vaccine after65 if indicated Tetanus Vaccine every 10 years Lipids yearly under the age of 75 If Smoking history: one time CT scan of chest and Ultrasound of Aorta to screen for Anuerysm * Natan Keyes MD - 08/14/2024 9:51 AM ESTAssociated Problem(s): Malignant neoplasm of prostate (CMS/HCC) F/up with urology and hem/onc * Natan Keyes MD - 08/14/2024 9:30 AM EST Images from the original note were not included. Subjective : Chief Complaint: Rocio Pang is an 78 y.o. male here for an annual wellness visit. 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 Current Outpatient Medications Medication Sig Dispense Refill KLOR-CON 20 MEQ ER tablet Take 20 mEq by mouth Daily albuterol HFA 90 mcg/act inhaler INHALE 2 PUFFS BY MOUTH 4 TIMES A DAY NEEDED allopurinol (Zyloprim) 100 MG tablet Take 1 tablet by mouth in the morning. Alrex 0.2 % suspension ophthalmic suspension Administer 1 drop into both eyes in the morning and 1 drop before bedtime. Ascorbic Acid (vitamin C) 100 MG tablet Take 100 mg by mouth Daily atorvastatin (Lipitor) 20 MG tablet Take 1 tablet (20 mg) by mouth in the morning. 100 tablet 3 baclofen (Lioresal) 10 MG tablet every 8 (eight) hours. cholecalciferol (Vitamin D-3) 50 MCG (2000 UT) capsule Take by mouth. Continuous Blood Gluc Sensor (FreeStyle Mayito 2 Sensor) misc CHANGE EVERY 2 WEEKS DIRECTED 2 each 5 HYDROcodone-acetaminophen ([place]wood) 5-325 MG tablet TAKE 1-2 TABLET BY MOUTH THREE TIMES DAILY NEEDED K Phos [place]-Sod Phos Di & [place]illo (Phospha 250 Neutral) 155-852-130 MG tablet Take 1 tablet by mouth in the morning and 1 tablet in the evening and 1 tablet before bedtime. metFORMIN (Glucophage) 500 MG tablet TAKE 1 TABLET (500 MG) BY MOUTH IN THE MORNING AND IN THE EVENING WITH MEALS 180 tablet 4 SITagliptin (Januvia) 100 MG tablet Take 1 tablet (100 mg) by mouth in the morning. 100 tablet 4 triamcinolone (Kenalog) 0.1 % cream Apply to affected areas, up to twice a day when flared, do not use one the face, groin, or underarms, 30 day supply 454 g 11 triamcinolone (Kenalog) 0.1 % cream Apply to affected areas on arms, up to twice a day when flared,do not use one the face, groin, or underarms, 30 day supply 80 g 0 No current facility-administered medications for this visit. Review of Systems Constitutional: Negative for chills, fatigue, fever and unexpected weight change. Respiratory: Negative for cough. Cardiovascular: Positive for chest pain. Gastrointestinal: Negative for abdominal pain, blood in stool, constipation, diarrhea, nausea and vomiting. Genitourinary: Negative for dysuria, enuresis, frequency and hematuria. Musculoskeletal: Negative for back pain. Neurological: Negative for dizziness, tremors, syncope, facial asymmetry and speech difficulty. Psychiatric/Behavioral: Negative for agitation, behavioral problems, confusion and dysphoric mood. The patient is not nervous/anxious. List of current healthcare providers: Patient Care Team: Natan Keyes MD as PCP - General (Family Medicine) Natan Keyes MD as PCP - ACO Reach Medicare Annual Visit Over the past 2 weeks, how often have you been bothered by any of the following problems? Little interest or pleasure in doing things: Not at all Feeling down, depressed, or hopeless: Not at all Patient Health Questionnaire-2 Score: 0 Cope Fall Risk History of Falling, Immediate or Within 3 Months: No Health Risk Assessment Form Do you need help eating, bathing, using the toilet, dressing, or getting around your home?: No Can you prepare your own meals?: Yes Can you do your own housework without help?: Yes Can you shop for groceries or clothes without help?: Yes Do you exercise for about 20 minutes 3 or more days a week?: Yes How confident are you that you can control and manage most of your health problems?: Very confident Can you mange your money, credit cards and accounts, pay bills and taxes?: Yes Vision Screening: Yes, no gross abnormalities Hearing Screening: Yes, no gross abnormalities Cognitive Screening Self Assessment: No overt cognitive deficiency is apparent by direct observation Three Word Registration: Leader, Season, Table Clock Drawing: Normal Clock - 2 Three Word Recall: 2/3 words correct - 2 Total Score (0-5 Points): 4 Pain Assessment Pain Score: 0 - No pain Advance Care Planning Do you have a living will?: Yes Do you have a medical power of securities attorney?: Yes Objective : BP 124/64 Pulse 85 Ht 5' 9 Wt 199 lb SpO2 93% BMI 29.39 kg/m No results found. Physical Exam Office Visit on 08/14/2024 Component Date Value Ref Range Status Hemoglobin A1C 08/14/2024 7.4 Final Assessment/Plan : The following health maintenance schedule was reviewed with the patient and provided in printed form in the after visit summary: Health Maintenance Topic Date Due Pneumococcal Vaccine: 65+ Years (2 of 2 - PPSV23 or PCV20) 08/15/2019 Diabetes: Hemoglobin A1C 10/05/2023 Influenza Vaccine (1) 04/23/2024 Diabetes: Urine Protein Screening 07/05/2024 Medicare Annual Wellness (AWV) 07/05/2024 Diabetes: Retinopathy Screening 07/31/2026 Advance Care Planning Patient willing to discuss ACP. If in place, renew periodically. If not in place, recommend obtaining ACP. Assessment/Plan Problem List Items Addressed This Visit Hypertriglyceridemia (CMS/HCC) Relevant Orders CBC and differential Lipid panel Comprehensive metabolic panel Type 2 diabetes mellitus without complication, without long-term current use of insulin (CMS/HCC) Relevant Medications SITagliptin (Januvia) 100 MG tablet Lipoprotein deficiency disorder (CMS/HCC) Relevant Orders CBC and differential Lipid panel Diabetes mellitus (CMS/HCC) Relevant Orders CBC and differential Microalbumin / creatinine urine ratio Comprehensive metabolic panel POCT Glycated hemoglobin, total Medicare annual wellness visit, subsequent Relevant Orders CBC and differential Lipid panel Microalbumin / creatinine urine ratio Comprehensive metabolic panel Other Visit Diagnoses Routine general medical examination at health care facility - Primary Orders Placed This Encounter Procedures CBC and differential Standing Status: Future Number of Occurrences: 1 Standing Expiration Date: 08/14/2025 Order Specific Question: Print requisition? Answer: No Lipid panel Standing Status: Future Number of Occurrences: 1 Standing Expiration Date: 08/14/2025 Microalbumin / creatinine urine ratio Standing Status: Future Number of Occurrences: 1 Standing Expiration Date: 08/14/2025 Order Specific Question: Print requisition? Answer: No Comprehensive metabolic panel Standing Status: Future Number of Occurrences: 1 Standing Expiration Date: 08/14/2025 Order Specific Question: Print requisition? Answer: No POCT Glycated hemoglobin, total Electronically signed by Natan Keyes MD on August 14, 2024 documented in this encounter[facility] [id number] History of Present illness Narrative* Wanda Chino MD - 07/18/2024 8:45 AM EST Skin Check Location: Patient requests a full body skin examination Dermatologic history: history of Actinic Keratosis, history of Basal Cell Carcinoma, history of Melanoma Last visit: 3 months ago Established patient Melanoma History Date of Melanoma Dx: 01/2017 Melanoma Details: Invasive Melanoma Breslow's Depth 0.5 Ulceration Ulceration Not Present Melanoma Treatment: Wide excision Location: Mid back Date of Melanoma Dx: 10/2015 Melanoma Details: Melanoma in situ Melanoma Treatment: Excised by Dr. Weathers in 2015, margins clear 2nd Location: right taoism Area was rebiopsied in 2017 and 2019, showed actinic lentigo and then pigmented AK, lesion failed to resolve after cryotherapy, rebiopsied in 09/2023, showed changes worrisome for evolving melanoma insitu, patient saw Dr. Valladares in 10/2023, lesion removed with mohs surgery All pertinent medical history, medications, and allergies were reviewed. General Exam: alert, oriented to person, place, and time, normal affect, well appearing Unaccompanied Scalp, Examined , exam limited by hair Right leg Examined Head, Face Examined Left leg Examined Neck Examined Right foot Examined Chest Examined Left foot Examined Back Examined Buttocks Examined Abdomen Examined Digits,nails: Examined Right arm Examined Left arm Examined Lymphatics: Examined Hands Examined no supraclavicular lymphadenopathy, no axillary lymphadenopathy 1. Seborrheic keratosis Stuck on verrucous, jones-brown papules and plaques. Patient was counseled regarding these benign growths. Removal is normally not necessary, but they may be removed if they are symptomatic or for cosmetic reasons. 2. Lentigines Scattered jones macules in sun-exposed areas. The patient was informed that lentigines are benign pigmented lesions that occur on sun-exposed andsun-damaged skin. No treatment is necessary. Recommended regular use of broad spectrum sunscreen SPF 30 or higher 3. Actinic keratosis (13) Left Antihelix, Left Buccal Cheek, Left Scaphoid Fossa, Left Superior [place], Mid Parietal Scalp (3), Mid Supratip of Nose, Right Buccal Cheek, Right Eyebrow (2), Right Forehead, Right Hindu Erythematous scaly papules Patient was counseled regarding these sun-induced growths that can develop into squamous cell carcinoma if left untreated. Discussed treatment with cryotherapy. It was emphasized that any treated lesions that fail to resolve should be re- evaluated. Cryotherapy performed today; see procedure note Diagnosis: Actinic keratosis Indication: Precancerous Location: see skin exam Consent: Verbal consent was obtained and risks were discussed, including, but not limited to risks of scarring, darker or fishing boat mate pigmentary changes, recurrence, incomplete removal and infection. Method: Liquid nitrogen was used to treat the lesion(s) with two 5-10 second freeze-thaw cycles. Number of lesions treated: 13 Post-procedure instructions: Instructions were given orally and in writing. The office will be contacted if the lesion fails to resolve despite treatment, or if a side effect develops such as abnormal crusting, scabbing, redness or tenderness Cryotherapy, skin lesion - Left Antihelix, Left Buccal Cheek, Left Scaphoid Fossa, Left Superior [place], Mid Parietal Scalp (3), Mid Supratip of Nose, Right Buccal Cheek, Right Eyebrow (2), Right Forehead, Right Hindu 4. History of malignant melanoma of skin (2) Left Upper Back, Right Hindu No evidence of recurrence at melanoma scars. The patient was counseled that scars from excisional sites of melanoma should be monitored closely for recurrence. The patient was instructed to contact the office for any new, changing, or symptomatic moles. The patient was also instructed to contact the office for any new lesions that develop within or around the previous melanoma scar. Recommended OTC scar cream silicone based to use on new scar Next Visit: 4 months documented in this encounterWashington [facility] [id number] History of Present illness Narrative* Subha Knight NP - 04/27/2024 3:00 PM EDT Images from the original note were not included. Subjective Patient ID: Rocio Pang is a 78 y.o. male who presents for a possible TIA Rocio is in today for a possible TIA. States he was at the coffee shop when he went to get a coffee and couldn't remember what he wanted, says he closed his eyes and started making noises and fell to the ground ( was caught by worker). States he feels completely fine now and nothing out of the ordinary. Says he drove home after this happened. Says this happened 6 years ago. Current Outpatient Medications on File Prior to Visit Medication Sig Dispense Refill albuterol HFA 90 mcg/act inhaler INHALE 2 PUFFS BY MOUTH 4 TIMES A DAY NEEDED allopurinol (Zyloprim) 100 MG tablet Take 1 tablet by mouth in the morning. Alrex 0.2 % suspension ophthalmic suspension Administer 1 drop into both eyes in the morning and 1 drop before bedtime. Ascorbic Acid (vitamin C) 100 MG tablet Take 100 mg by mouth Daily atorvastatin (Lipitor) 20 MG tablet Take 1 tablet (20 mg) by mouth in the morning. 100 tablet 3 baclofen (Lioresal) 10 MG tablet every 8 (eight) hours. cholecalciferol (Vitamin D-3) 50 MCG (2000 UT) capsule Take by mouth. Continuous Blood Gluc Sensor (FreeStyle Mayito 2 Sensor) misc CHANGE EVERY 2 WEEKS DIRECTED 2 each 5 HYDROcodone-acetaminophen ([place]wood) 5-325 MG tablet TAKE 1-2 TABLET BY MOUTH THREE TIMES DAILY NEEDED K Phos [place]-Sod Phos Di & [place]illo (Phospha 250 Neutral) 155-852-130 MG tablet Take 1 tablet by mouth in the morning and 1 tablet in the evening and 1 tablet before bedtime. metFORMIN (Glucophage) 500 MG tablet Take 1 tablet (500 mg) by mouth in the morning and 1 tablet (500 mg) in the evening. Take with meals. 200 tablet 3 SITagliptin (Januvia) 100 MG tablet Take 1 tablet (100 mg) by mouth in the morning. 100 tablet 3 triamcinolone (Kenalog) 0.1 % cream Apply to affected areas, up to twice a day when flared, do not use one the face, groin, or underarms, 30 day supply 454 g 11 triamcinolone (Kenalog) 0.1 % cream Apply to affected areas on arms, up to twice a day when flared,do not use one the face, groin, or underarms, 30 day supply 80 g 0 No current facility-administered medications on file prior to visit. I have reviewed and reconciled the history and medication list with the patient today. Allergies Allergen Reactions Other Other Reaction(s): Unknown Wound Dressing Adhesive Unknown Other Reaction(s): Unknown Social History Tobacco Use Smoking status: Never Passive exposure: Never Smokeless tobacco: Never Vaping Use Vaping status: Never Used Substance Use Topics Alcohol use: Never Drug use: Never Family History Problem Relation Name Age of Onset Cancer Mother Melanoma Mother Past Medical History: Diagnosis Date Abnormal Doppler ultrasound of carotid artery 05/23/2019 0-49% on right and 50-69% on left carotid. Carotid doppler Actinic keratosis Atypical nevus 07/21/2017 excised from left superior back Basal cell carcinoma Carotid atherosclerosis, bilateral COVID-19 09/12/2021 positive. 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 shows no obstructive uropathy, has increased prostate Melanoma ([facility]/HCC) 02/10/2017 Ashwin IV, Breslow 0.55mm mid back Melanoma (CMS/HCC) 08/20/2017 Dr. Weathers on the back Melanoma ([facility]/HCC) 2018 left upper, Dr. 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 HENT: Negative. Eyes: Negative. Respiratory: Negative. Cardiovascular: Negative. Gastrointestinal: Negative. Genitourinary: Negative. Musculoskeletal: Negative. Skin: Negative. Neurological: Negative. Psychiatric/Behavioral: Negative. All other systems reviewed and are negative. Endocrine: Negative. Objective Physical Exam Vitals reviewed. Constitutional: Appearance: Normal appearance. HENT: Head: Normocephalic. Mouth/Throat: Mouth: Mucous membranes are moist. Pharynx: Oropharynx is clear. Eyes: Pupils: Pupils are equal, round, and reactive to light. Neck: Vascular: No carotid bruit. Cardiovascular: Rate and Rhythm: Normal rate and regular rhythm. Heart sounds: Normal heart sounds. Pulmonary: Effort: Pulmonary effort is normal. Breath sounds: Normal breath sounds. Musculoskeletal: Cervical back: Neck supple. Comments: Bilateral strength equal. Skin: General: Skin is warm and dry. Neurological: General: No focal deficit present. Mental Status: He is alert and oriented to person, place, and time. Psychiatric: Mood and Affect: Mood normal. Behavior: Behavior normal. Assessment/Plan Diagnoses and all orders for this visit: Transient alteration of awareness - CT head wo IV contrast; Future Await CT scan. Informed pt that he needed to go to the ER immediately when this happened because every second count. Forgetfulness - CT head wo IV contrast; Future Await CT scan. Informed pt that he needed to go to the ER immediately when this happened because every second count. Loss of balance - CT head wo IV contrast; Future Await CT scan.Informed pt that he needed to go to the ER immediately when this happened because every second count. No follow-ups on file. documented in this encounterWashington County Memorial [id number] History of Present illness Narrative* Wanda Chino MD - 04/17/2024 8:40 AM EDT Images from the original note were not included. Skin Check Location: Patient requests a full body skin examination Dermatologic history: history of Actinic Keratosis, history of Basal Cell Carcinoma, history of Melanoma, history of severely atypical nevus Last visit: 3 months ago Melanoma History Date of Melanoma Dx: 01/2017 Melanoma Details: Invasive Melanoma Breslow's Depth 0.5 Ulceration Ulceration Not Present Melanoma Treatment: Wide excision Location: Mid back Date of Melanoma Dx: 10/2015 Melanoma Details: Melanoma in situ Melanoma Treatment: Excised by Dr. Weathers in 2015, margins clear 2nd Location: right taoism Area was rebiopsied in 2017 and 2019, showed actinic lentigo and then pigmented AK, lesion failed to resolve after cryotherapy, rebiopsied in 09/2023, showed changes worrisome for evolving melanoma insitu, patient saw Dr. Valladares in 10/2023, lesion removed with mohs surgery Established patient All pertinent medical history, medications, and allergies were reviewed. General Exam: alert , oriented to person, place, and time , normal affect, well appearing Unaccompanied Scalp, Examined , exam limited by hair Right leg Examined Head, Face Examined Left leg Examined Neck Examined Right foot Examined Chest Examined Left foot Examined Back Examined Buttocks Examined Abdomen Examined Digits,nails: Examined Right arm Examined Left arm Examined Lymphatics: Examined Hands Examined no cervical lymphadenopathy, no supraclavicular lymphadenopathy, no axillary lymphadenopathy 1. Allergic contact dermatitis due to plants, except food Right Forearm - Posterior [place] patches and plaques Start TAC 0.1% cream bid prn when flared, hold if clear. Notify clinic if flaring despite treatment. triamcinolone (Kenalog) 0.1 % cream - Right Forearm - Posterior Apply to affected areas on arms, up to twice a day when flared, do not use one the face, groin, or underarms, 30 day supply 2. History of malignant melanoma of skin (2) Left Upper Back, Right Hindu No evidence of recurrence at melanoma scars. The patient was counseled that scars from excisional sites of melanoma should be monitored closely for recurrence. The patient was instructed to contact the office for any new, changing, or symptomatic moles. The patient was also instructed to contact the office for any new lesions that develop within or around the previous melanoma scar. Recommended OTC scar cream silicone based to use on new scar 3. Actinic keratosis (9) Left Parotid Area (2), Left Superior [place], Left Upper Back, Left Zygomatic Area, Right Parotid Area (2), Right Superior [place] (2) Erythematous scaly papules Patient was counseled regarding these sun-induced growths that can develop into squamous cell carcinoma if left untreated. Discussed treatment with cryotherapy. It was emphasized that any treated lesions that fail to resolve should be re- evaluated. Cryotherapy performed today; see procedure note Diagnosis: Actinic keratosis Indication: Precancerous Location: see skin exam Consent: Verbal consent was obtained and risks were discussed, including, but not limited to risks of scarring, darker or fishing boat mate pigmentary changes, recurrence, incomplete removal and infection. Method: Liquid nitrogen was used to treat the lesion(s) with two 5-10 second freeze-thaw cycles. Number of lesions treated: 9 Post-procedure instructions: Instructions were given orally and in writing. The office will be contacted if the lesion fails to resolve despite treatment, or if a side effect develops such as abnormal crusting, scabbing, redness or tenderness Cryotherapy, skin lesion - Left Parotid Area (2), Left Superior [place], Left Upper Back, Left Zygomatic Area, Right Parotid Area (2), Right Superior [place] (2) 4. Neoplasm of unspecified behavior of bone, soft tissue, and skin Left Abdomen Irregularly pigmented papule Lesion biopsy Type of biopsy: tangential Informed consent: discussed and consent obtained Informed consent comment: The risks and benefits of the biopsy were discussed. Risks include but are not limited to bleeding, infection, scarring, pain, and nerve damage. An opportunity to ask questions prior to the procedure was permitted and all questions were answered. Patient was prepped and draped in usual sterile fashion: area cleansed with alcohol. Anesthesia: the lesion was anesthetized in a standard fashion Anesthetic: 1% lidocaine w/ epinephrine 1-100,000 buffered w/ 8.4% NaHCO3 Instrument used: DermaBlade Hemostasis achieved with: electrodesiccation Outcome: patient tolerated procedure well Outcome comment: The specimen was placed in a prelabeled formalin container to be sent for pathology Post-procedure details: sterile dressing applied and wound care instructions given Post-procedure details comment: Emphasized need to contact clinic for any signs of infection, uncontrollable bleeding, or complications. Dressing type: bandage Additional details: Photo taken Amount of lidocaine used: 1 cc Specimen A - Dermatopathology exam Differential Diagnosis: atypical mole vs melanoma Check Margins: No Size of lesion: 0.7 x 0.4 cm 5. Seborrheic keratosis, inflamed Left Abdomen (side) - Upper [place] and brown stuck on verrucous scaly papule with surrounding erythema The patient was informed that symptomatic seborrheic keratoses are benign growths that become inflamed, itchy, tender, traumatized, caught on clothing, or bleed. Symptomatic lesions can be treated with cryotherapy or curretage. Thicker lesions treated with cryotherapy may require more than one treatment. The patient was instructed to notify the office if abnormal redness or tenderness develops atthe treatment site. Cryotherapy today, see procedure note. Diagnosis: Inflamed seborrheic keratosis Indication: Inflamed Consent: Verbal consent was obtained and risks were discussed, including, but not limited to risks of scarring, darker or fishing boat mate pigmentary changes, recurrence, incomplete removal and infection. Method: Liquid nitrogen was used to treat the lesion(s) with two 5-10 second freeze-thaw cycles Number of lesions treated: 1 Post-procedure instructions: Instructions were given orally and in writing. The office will be contacted if the lesion fails to resolve despite treatment, or if a side effect develops such as abnormal crusting, scabbing, redness or tenderness Cryotherapy, skin lesion - Left Abdomen (side) - Upper 6. Lentigines Scattered jones macules in sun-exposed areas. The patient was informed that lentigines are benign pigmented lesions that occur on sun-exposed andsun-damaged skin. No treatment is necessary. Recommended regular use of broad spectrum sunscreen SPF 30 or higher 7. Seborrheic keratosis Stuck on verrucous, jones-brown papules and plaques. Patient was counseled regarding these benign growths. Removal is normally not necessary, but they may be removed if they are symptomatic or for cosmetic reasons. Next Visit: 3 months documented in this encounterWashington County Memorial [id number] Hospital Discharge instructions Patient Education 03/10/2024 11:22:14 Benign Prostatic Hyperplasia Benign Prostatic Hyperplasia Benign prostatic hyperplasia (BPH) is an enlarged prostate gland that is caused by the normal agingprocess. The prostate may get bigger as a man gets older. The condition is not caused by cancer. The prostate is a walnut-sized gland that is involved in the production of semen. It is located in front of the rectum and below the bladder. The bladder stores urine. The urethra carries stored urine ou t of the body. An enlarged prostate can press on the urethra. This can make it harder to pass urine. The buildup of urine in the bladder can cause infection. Back pressure and infection may progress to bladder damage and kidney (renal) failure. What are the causes? This condition is part of the normal aging process. However, not all men develop problems from thiscondition. If the prostate enlarges away from the [...] urethra. Follow these instructions at home: Take lejv-cjr-qprlbdz and prescription medicines only as told by [...] provider. Document Revised: 02/25/2022 Document Reviewed: 02/25/2022 [employer] Patient Education 2022 [employer]. Follow Up Care 03/12/2023 09:11:12 With:ANA MARIA PADILLA, Bernardo Khan, URL Address: [address] [place], [place] [id number]- When: Unknown [facility] 07-19-2024 NotePatient Education Urology Benign Prostatic Hyperplasia Benign prostatic hyperplasia (BPH) is an enlarged prostate gland that is caused by the normal agingprocess. The prostate may get bigger as a man gets older. The condition is not caused by cancer. The prostate is a walnut-sized gland that is involved in the production of semen. It is located in front of the rectum and below the bladder. The bladder stores urine. The urethra carries stored urine ou t of the body. An enlarged prostate can press on the urethra. This can make it harder to pass urine. The buildup of urine in the bladder can cause infection. Back pressure and infection may progress to bladder damage and kidney (renal) failure. What are the causes? This condition is part of the normal aging process. However, not all men develop problems from thiscondition. If the prostate enlarges away from the [...] urine that may remain in your bladder afteryou finish urinating. ? A digital rectal exam. [...] this procedure, a tool is inserted through theopening at the tip of the penis (urethra). [...] procedure uses radio frequencies to destroy and removea small amount of prostate tissue. ? Interstitial laser coagulation (ILC). This procedure uses a laser to destroy and remove a small amount of prostate tissue. ? Transurethral electrovaporization (TUVP). This procedure uses electrodes to destroy and remove a small amount of prostate tissue. ? Prostatic urethral lift. This procedure inserts an implant to push the lobes of the prostate awayfrom the urethra. Follow these instructions at home: ? 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 Patient continues to do very well. PSA remains low. No significant post radiation related problems. Plan to see patient back in 1 year with PSA. Signed by: Stanley Beck MD cc: Natan Keyes MD Portions of the above note extracted and edited from previous visit as well as active information included in the EMR. documented in this encounterK[facility] Nurse Note* Dora Gilbert RN - 12/29/2023 10:17 AM EDT AUA 8 Dora Gilbert RN [facility]05-08-[facility] Nurse Note* Dora Gilbert RN - 12/29/2023 10:17 AM EDT MIESHA 8 Dora Gilbert RN documented in this encounterK[facility]03-22-2024 History of Present illness Narrative* Marli Perez RN - 11/12/2023 11:00 AM EDT Images from the original note were not included. Office Follow Up Note Visit Summary Chief Complaint 1. Complaint Wound check. Rocio Pang is a 78 y.o. male who presents for 1 week follow up after surgery for a melanoma. The patient has no concerns today. Location Operation site location: right taoism On exam, Mr. Pang is well-appearing and in no apparent distress. The surgical site appearsclean with minimal to no erythema. No tenderness and good wound edge apposition. Assessment and Plan: History of skin cancer requiring ongoing monitoring for recurrence and additional lesion development. The patient was reassured that the wound is healing slowly due to some brown granulation tissue on top. Pt asked about wound care routine and pt states he has been using hand shutdown planner to clean wound. Pt advised to use [...] will return as needed. documented in this encounterW[facility] Work Phone: 1(659) 256-172603-13-2024 History of Present illness Narrative* Goyo Valladares MD PhD - 11/03/2023 8:15 AM EDT Images from the original note were not included. Office Visit Note Date: 11/03/2023 Surgeon: Goyo Valladares MD PhD Office Location: [address] [facility] [address] Dept: [phone] Dept Referring Provider: Julian Hebert, SPACER TYPE BAR AND SEGMENT-COMMUNITY DEVELOPMENT SPECIALIST [address] [place] [address] Subjective Rocio Pang is a 78 y.o. [...] wound care requirements, activity restrictions, likely scar outcomeand time to heal. After Mohs surgery, the [...] was reviewed. Patient elected for Mohs surgery. * Goyo Valladares MD PhD - 11/03/2023 8:15 AM EDT Mohs Surgery Operative Note Date of Surgery: 11/03/2023 Surgeon: Goyo Valladares MD PhD Office Location: [address] [facility] [address] Dept: [phone] Dept Referring Provider: Julian Hebert APRN-COMMUNITY DEVELOPMENT SPECIALIST [address] [facility] [address] [place] [address] Assessment/Plan Pre-procedure: Obtained informed consent: written from [...] Left Forehead Mohs surgery Consent obtained: written [place] Protocol: Procedure explained and questions answered to [...] sodium bicarbonate Procedure Details: Biopsy accession number: [id number] Date of biopsy: 09/27/2023 Frozen section biopsy [...] using a curette and/or scalpel as needed. Anincision was made following the Mohs approach through the skin. The specimen was taken to the lab, divided into 8 piece(s) and appropriately chromacoded and processed. The clinically evident lesion was excised and taken to the lab and serially vertically sectioned and stained with hematoxylin and eosin and also immunostained with [place]-1. A 3 mm biopsy of adjacent tissue was taken and used to establish a baseline with hematoxylin and eosin and Bridgeton-1 immunostains. The debulk showed melanoma in situ. The specimen was processed using immunostains with Bridgeton-1. Tumor features identified on Mohs section: no [...] the options for wound closure, a decision wasmade to proceed with second intention healing. Dressing [...] The patient will follow up with Goyo Valladares MD PhD as needed for any post operative problems or concerns, and will follow up with their primary greenhouse florist as scheduled. documented in this [facility] Work Phone: 1(679) 639-649501-30-2024 Evaluation note* Encounter Date Diagnosis Assessment Notes Treatment Notes Treatment Clinical Notes Aug, Hypophosphatemia (ICD-10 - E83.39) [facility] Other 01-24-2024 Evaluation note* Encounter Date Diagnosis [...] 24. I asked the patient to take xaoo-qtg-gziwgzo vitamin D supplement 2000 units daily. I [...] Renal ultrasound revealed prostatomegaly.No urinary obstructive symptoms. [facility] Other 07-14-2023 Evaluation note* Encounter Date Diagnosis [...] (ICD-10 - M51.36) Follow up after imaging. [facility] Other 07-08-2023 Evaluation note* Encounter Date Diagnosis [...] - H10.13) Feb, Bronchitis (ICD-10 - J40) [facility] Other 05-31-2023 Evaluation note* Encounter Date Diagnosis [...] 24. I asked the patient to take ddzx-hlr-gddxlzh vitamin D supplement 2000 units daily. I [...] Renal ultrasound revealed prostatomegaly.No urinary obstructive symptoms. [facility] Other 05-11-2023 History of Present illness Narrative* G Yobani Beck MD - 12/31/2022 1:17 PM EDT Radiation [...] as needed. 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 Patient continues to do very well. PSA remains low. No significant post radiation related problems. Plan to see patient back in 1 year with PSA. Signed by: Stanley Beck MD cc: Natan Keyes MD Portions of the above note extracted and edited from previous visit as well as active information included in the EMR. documented in this encounterK[facility]01-[facility]-2023 Evaluation note* Encounter Date Diagnosis Assessment Notes [...] days. Aug, Sore throat (ICD-10 - J02.9) [facility] Other 11-02-2022 Evaluation note* Encounter Date Diagnosis [...] follows with his PCP for diabetes management [facility] Other 07-18-2022 Hospital Discharge instructions Patient Education [...] 08/09/2006 Document Revised: 04/28/2019 Document Reviewed: 07/09/2017 [employer] Patient Education 2020 [employer]. 03/09/2022 10:22:48 Benign Prostatic Hyperplasia Benign Prostatic [...] urethra. Follow these instructions at home: Take iawt-den-cvulzec and prescription medicines only as told by [...] 08/09/2006 Document Revised: 07/04/2019 Document Reviewed: 09/13/2017 [employer] Patient Education 2019 [employer]. Follow Up Care 02/13/2022 14:37:55 With:ANA MARIA PADILLA, Bernardo Khan, URL Address: [facility] [address] , [place] [address] [phone] When:Within 1 Year(s) Comments:1 year fu with PSA [facility] 07-15-2022 Evaluation note* Encounter Date Diagnosis [...] the office if pain persists or worsens. [facility] Other 07-09-2022 Evaluation note* Encounter Date Diagnosis [...] (suspected) exposure to covid-19 (ICD-10 - Z20.822) [facility] Other 04-11-2022 Miscellaneous Notes* Telephone Encounter - Dora Gilbert RN - 12/01/2021 1:53 PM EDT Please review and sign if agreeable. Dora Gilbert RN documented in this encounterK[facility]02-25-2022 Evaluation note* Encounter Date Diagnosis Assessment Notes [...] the office if pain persists or worsens. [facility] Other 10-23-2021 Evaluation note* Encounter Date Diagnosis [...] Patient care instructions given in writting by [facility] Care At Home document [facility] Other 10-01-2021 Evaluation note* Encounter Date Diagnosis [...] Patient care instructions given in writting by [facility] Care At Home document. [place] [employer] Other evaluation + Plan note Future Appointments Appointment Date:03/12/2023 08:15:00 AM Scheduled Provider:Bernardo RODGERS MD Location:[facility] Appointment Type:URO Office Visit Diagnostic Tests Pending * PSA Total 03/09/22 [facility] evaluation + Plan note Future Appointments Appointment Date:03/16/2025 08:15:00 AM Scheduled Provider:Bernardo RODGERS MD Location:[facility] Appointment Type:URO Office Visit Diagnostic Tests Pending * PSA Total 01/21/25 [facility] evaluation + Plan note Future Appointments Appointment Date:03/16/2025 08:15:00 AM Scheduled Provider:Bernardo RODGERS MD Location:[facility] Appointment Type:URO Office Visit [facility] evaluation noteNo InformationNortGrand View Health [facility] Other [facility] noteNo assessment information available [facility] Work Phone: Evaluation note* Diagnosis History of prostate cancer- Primary Personal history of malignant neoplasm of prostate [facility] Diagnosis Melanoma in situ of forehead (CMS/HCC) documented in this encounter [facility] Work Phone: Evaluation note* Diagnosis Melanoma in situ of forehead (CMS/HCC) Encounter for change or removal of nonsurgical wound dressing documented in this encounter [facility] Work Phone: Evaluation note* Diagnosis History of prostate cancer- Primary Personal history of malignant neoplasm of prostate [facility]* Diagnosis Onset Date Resolution Status Right otitis media acute [facility] Work Phone: evaluation note* Diagnosis Onset Date Resolution Status Right otitis media acute Arteriolonephrosclerosis acu te BPH without urinary obstruction acute Chronic kidney disease, stage II (mild) acute Diabetes mellitus type 2 in nonobese acute Gout acute Renal cyst, right acute Single kidney acute Vitamin D deficiency [facility] Work Phone: Evaluation note* Diagnosis Onset Date Resolution Status Arteriolonephrosclerosis acu te BPH without urinary obstruction acute Chronic kidney disease, stage II (mild) acute Diabetes mellitus type 2 in nonobese acute Gout acute Renal cyst, right acute Single kidney acute Vitamin D deficiency [facility] Work Phone: Evaluation note* Diagnosis Dysphagia, unspecified type- Primary Chronic pain of left heel Heel spur, left Sciatica of left side Heart disease Unspecified heart disease Routine general medical examination at health care facility- Primary Routine general medical examination at a health care facility Benign essential hypertension (CMS/HCC) Essential hypertension, benign Abnormal glucose tolerance test Impaired glucose tolerance test Nocturia Medicare annual wellness visit, subsequent Type 2 diabetes mellitus without complication, without long-term current use of insulin (CMS/HCC) Hypertriglyceridemia (CMS/HCC) Pure hyperglyceridemia Malignant neoplasm of prostate (CMS/HCC) Malignant neoplasm of prostate Stage 3a chronic kidney disease (HCC) (CMS/HCC) Type 2 diabetes mellitus with stage 3a chronic kidney disease, without long-term current use of insulin (HCC) (CMS/HCC) Seborrheic keratosis- Primary Lentigines Actinic keratosis History of malignant melanoma of skin Personal history of malignant melanoma of skin documented in this encounter [facility] HealthcareEvaluation note* Diagnosis Allergic contact dermatitis due to plants, except food- Primary Contact dermatitis and other eczema due to plants (except food) History of malignant melanoma of skin Personal history of malignant melanoma of skin Actinic keratosis Neoplasm of unspecified behavior of bone, soft tissue, and skin Seborrheic keratosis, inflamed Lentigines Seborrheic keratosis documented in this encounter [facility] HealthcareEvaluation note* Diagnosis Transient alteration of awareness- Primary Forgetfulness Other general symptoms Loss of balance Abnormality of gait documented in this encounter [facility]* Diagnosis Dysphagia, unspecified type- Primary Chronic pain of left heel Heel spur, left Sciatica of left side Heart disease Unspecified heart disease Routine general medical examination at health care facility- Primary Routine general medical examination at a [facility] Benign essential hypertension (CMS/HCC) Essential hypertension, benign Abnormal glucose tolerance test Impaired glucose tolerance test Nocturia Medicare annual wellness visit, subsequent Type 2 diabetes mellitus without complication, without long-term current use of insulin (CMS/HCC) Hypertriglyceridemia (CMS/HCC) Pure hyperglyceridemia Malignant neoplasm of prostate (CMS/HCC) Malignant neoplasm of prostate Stage 3a chronic kidney disease (HCC) (CMS/HCC) Type 2 diabetes mellitus with stage 3a chronic kidney disease, without long-term current use of insulin (HCC) (CMS/HCC) Routine general medical examination at [facility] care facility- Primary Routine general medical examination at a [facility] Type 2 diabetes mellitus with stage 3a chronic kidney disease, without long-term current use of insulin (HCC) (CMS/HCC) Hypertriglyceridemia (CMS/HCC) Pure hyperglyceridemia Medicare annual wellness visit, subsequent 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 Type 2 diabetes mellitus without complication, without long-term current use of insulin (CMS/HCC) Malignant neoplasm of prostate (CMS/HCC) Malignant neoplasm of prostate Malignant melanoma of other part of trunk (CMS/HCC) Other chest pain Abnormal CT of brain Nonspecific (abnormal) findings on radiological and other examination of skull and head documented in this encounter [facility] HealthcareEvaluation note* Diagnosis Dysphagia, unspecified type- Primary Chronic pain of left heel Heel spur, left Sciatica of left side Heart disease Unspecified heart disease Routine general medical examination at health care facility- Primary Routine general medical examination at a [facility] Benign essential hypertension (CMS/HCC) Essential hypertension, benign Abnormal glucose tolerance test Impaired glucose tolerance test Nocturia Medicare annual wellness visit, subsequent Type 2 diabetes mellitus without complication, without long-term current use of insulin (CMS/HCC) Hypertriglyceridemia (CMS/HCC) Pure hyperglyceridemia Malignant neoplasm of prostate (CMS/HCC) Malignant neoplasm of prostate Stage 3a chronic kidney disease (HCC) (CMS/HCC) Type 2 diabetes mellitus with stage 3a chronic kidney disease, without long-term current use of insulin (HCC) (CMS/HCC) Routine general medical examination at health care facility- Primary Routine general medical examination at a health care facility Type 2 diabetes mellitus with stage 3a chronic kidney disease, without long-term current use of insulin (HCC) (CMS/HCC) Hypertriglyceridemia (CMS/HCC) Pure hyperglyceridemia Medicare annual wellness visit, subsequent 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 Type 2 diabetes mellitus without complication, without long-term current use of insulin (CMS/HCC) Malignant neoplasm of prostate (CMS/HCC) Malignant neoplasm of prostate Malignant melanoma of other part of trunk (CMS/HCC) Other chest pain Abnormal CT of brain Nonspecific (abnormal) findings on radiological and other examination of skull and head Plantar fasciitis- Primary Plantar fascial fibromatosis Type 2 diabetes mellitus without complication, unspecified whether nursing home insulin use (CMS/HCC) Pain due to onychomycosis of toenails of both feet Contracture of left ankle documented in this encounter [facility]* Diagnosis Dysphagia, unspecified type- Primary Chronic pain of left heel Heel spur, left Sciatica of left side Heart disease Unspecified heart disease Routine general medical examination at health care facility- Primary Routine general medical examination at a health care facility Benign essential hypertension (CMS/HCC) Essential hypertension, benign Abnormal glucose tolerance test Impaired glucose tolerance test Nocturia Medicare annual wellness visit, subsequent Type 2 diabetes mellitus without complication, without long-term current use of insulin (CMS/HCC) Hypertriglyceridemia (CMS/HCC) Pure hyperglyceridemia Malignant neoplasm of prostate (CMS/HCC) Malignant neoplasm of prostate Stage 3a chronic kidney disease (HCC) (CMS/HCC) Type 2 diabetes mellitus with stage 3a chronic kidney disease, without long-term current use of insulin (HCC) (CMS/HCC) Routine general medical examination at health care facility- Primary Routine general medical examination at a health care facility Type 2 diabetes mellitus with stage 3a chronic kidney disease, without long-term current use of insulin (HCC) (CMS/HCC) Hypertriglyceridemia (CMS/HCC) Pure hyperglyceridemia Medicare annual wellness visit, subsequent 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 Type 2 diabetes mellitus without complication, without long-term current use of insulin (CMS/HCC) Malignant neoplasm of prostate (CMS/HCC) Malignant neoplasm of prostate Malignant melanoma of other part of trunk (CMS/HCC) Other chest pain Abnormal CT of brain Nonspecific (abnormal) findings on radiological and other examination of skull and head Acute gout, unspecified cause, unspecified site- Primary Age-related cognitive decline Memory loss Malignant neoplasm of prostate (CMS/HCC) Malignant neoplasm of prostate Type 2 diabetes mellitus with other specified complication (CMS/HCC) Hyperlipidemia, unspecified (CMS/HCC) Malignant melanoma of other part of trunk (CMS/HCC) Type 2 diabetes mellitus with diabetic chronic kidney disease (CMS/HCC) Chronic kidney disease, stage 2 (mild) documented in this encounter [facility] HealthcareEvaluation note* Diagnosis Dysphagia, unspecified type- Primary Chronic pain of left heel Heel spur, left Sciatica of left side Heart disease Unspecified heart disease Routine general medical examination at health care facility- Primary Routine general medical examination at a health care facility Benign essential hypertension (CMS/HCC) Essential hypertension, benign Abnormal glucose tolerance test Impaired glucose tolerance test Nocturia Medicare annual wellness visit, subsequent Type 2 diabetes mellitus without complication, without long-term current use of insulin ([facility]) Hypertriglyceridemia ([facility]/HCC) Pure hyperglyceridemia Malignant neoplasm of prostate (CMS/HCC) Malignant neoplasm of prostate Stage 3a chronic kidney disease (HCC) (CMS/HCC) Type 2 diabetes mellitus with stage 3a chronic kidney disease, without long-term current use of insulin (HCC) ([facility]) Routine general medical examination at health care facility- Primary Routine general medical examination at a [facility] Type 2 diabetes mellitus with stage 3a chronic kidney disease, without long-term current use of insulin (HCC) ([facility]) Hypertriglyceridemia ([facility]/HCC) Pure hyperglyceridemia Medicare annual wellness visit, subsequent 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 Type 2 diabetes mellitus without complication, without long-term current use of insulin (CMS/HCC) Malignant neoplasm of prostate (CMS/HCC) Malignant neoplasm of prostate Malignant melanoma of other part of trunk (CMS/HCC) Other chest pain Abnormal CT of brain Nonspecific (abnormal) findings on radiological and other examination of skull and head Shortness of breath- Primary TIA (transient ischemic attack) Unspecified transient cerebral ischemia Subcortical microvascular ischemic occlusive disease documented in this encounter [facility] HealthcareEvaluation note* Diagnosis Dysphagia, unspecified type- Primary Chronic pain of left heel Heel spur, left Sciatica of left side Heart disease Unspecified heart disease Routine general medical examination at health care facility- Primary Routine general medical examination at a health care [facility] Benign essential hypertension (CMS/HCC) Essential hypertension, benign Abnormal glucose tolerance test Impaired glucose tolerance test Nocturia Medicare annual wellness visit, subsequent Type 2 diabetes mellitus without complication, without long-term current use of insulin (CMS/HCC) Hypertriglyceridemia (CMS/HCC) Pure hyperglyceridemia Malignant neoplasm of prostate (CMS/HCC) Malignant neoplasm of prostate Stage 3a chronic kidney disease (HCC) (CMS/HCC) Type 2 diabetes mellitus with stage 3a chronic kidney disease, without long-term current use of insulin (HCC) (CMS/HCC) Routine general medical examination at health care facility- Primary Routine general medical examination at a health care facility Type 2 diabetes mellitus with stage 3a chronic kidney disease, without long-term current use of insulin (HCC) (CMS/HCC) Hypertriglyceridemia (CMS/HCC) Pure hyperglyceridemia Medicare annual wellness visit, subsequent 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 Type 2 diabetes mellitus without complication, without long-term current use of insulin (CMS/HCC) Malignant neoplasm of prostate (CMS/HCC) Malignant neoplasm of prostate Malignant melanoma of other part of trunk (CMS/HCC) Other chest pain Abnormal CT of brain Nonspecific (abnormal) findings on radiological and other examination of skull and head Shortness of breath- Primary TIA (transient ischemic attack) Unspecified transient cerebral ischemia Subcortical microvascular ischemic occlusive disease Acute gout of right foot, unspecified cause- Primary Type 2 diabetes mellitus without complication, unspecified whether nursing home insulin use (CMS/HCC) documented in this encounter [facility]* Diagnosis Dysphagia, unspecified type- Primary Chronic pain of left heel Heel spur, left Sciatica of left side Heart disease Unspecified heart disease Routine general medical examination at health care facility- Primary Routine general medical examination at a health care facility Benign essential hypertension (CMS/HCC) Essential hypertension, benign Abnormal glucose tolerance test Impaired glucose tolerance test Nocturia Medicare annual wellness visit, subsequent Type 2 diabetes mellitus without complication, without long-term current use of insulin (CMS/HCC) Hypertriglyceridemia (CMS/HCC) Pure hyperglyceridemia Malignant neoplasm of prostate (CMS/HCC) Malignant neoplasm of prostate Stage 3a chronic kidney disease (HCC) (CMS/HCC) Type 2 diabetes mellitus with stage 3a chronic kidney disease, without long-term current use of insulin (HCC) (CMS/HCC) Routine general medical examination at health care facility- Primary Routine general medical examination at a health care facility Type 2 diabetes mellitus with stage 3a chronic kidney disease, without long-term current use of insulin (HCC) (CMS/HCC) Hypertriglyceridemia (CMS/HCC) Pure hyperglyceridemia Medicare annual wellness visit, subsequent 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 Type 2 diabetes mellitus without complication, without long-term current use of insulin (CMS/HCC) Malignant neoplasm of prostate (CMS/HCC) Malignant neoplasm of prostate Malignant melanoma of other part of trunk (CMS/HCC) Other chest pain Abnormal CT of brain Nonspecific (abnormal) findings on radiological and other examination of skull and head Shortness of breath- Primary TIA (transient ischemic attack) Unspecified transient cerebral ischemia 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 Acute gout, unspecified cause, unspecified site Ingrown right big toenail Ingrowing nail documented in this encounter [facility] HealthcareEvaluation note* Diagnosis Dysphagia, unspecified type- Primary Chronic pain of left heel Heel spur, left Sciatica of left side Heart disease Unspecified heart disease Routine general medical examination at health care facility- Primary Routine general medical examination at a health care facility Benign essential hypertension ([facility]) Essential hypertension, benign Abnormal glucose tolerance test Impaired glucose tolerance test Nocturia Medicare annual wellness visit, subsequent Type 2 diabetes mellitus without complication, without long-term current use of insulin Hypertriglyceridemia ([facility]) Pure hyperglyceridemia Malignant neoplasm of prostate ([facility]/HCC) Malignant neoplasm of prostate Stage 3a chronic kidney disease (HCC) ([facility]/HCC) Type 2 diabetes mellitus with stage 3a chronic kidney disease, without long-term current use of insulin (HCC) ([facility]) Routine general medical examination at health care facility- Primary Routine general medical examination at a health care facility Type 2 diabetes mellitus with stage 3a chronic kidney disease, without long-term current use of insulin (HCC) ([facility]) Hypertriglyceridemia ([facility]) Pure hyperglyceridemia Medicare annual wellness visit, subsequent 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 Type 2 diabetes mellitus without complication, without long-term current use of insulin Malignant neoplasm of prostate (CMS/HCC) Malignant neoplasm of prostate Malignant melanoma of other part of trunk Other chest pain Abnormal CT of brain Nonspecific (abnormal) findings on radiological and other examination of skull and head Shortness of breath- Primary TIA (transient ischemic attack) Unspecified transient cerebral ischemia 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 Acute gout, unspecified cause, unspecified site Ingrown right big toenail Ingrowing nail Acute gout involving toe of right foot, unspecified cause- Primary Acute low back pain without sciatica, unspecified back pain laterality Type 2 diabetes mellitus with chronic kidney disease, with long-term current use of insulin, unspecified CKD stage ([facility]/HCC) Type 2 diabetes mellitus without complication, without long-term current use of insulin Ingrown right big toenail Ingrowing nail documented in this encounter [facility] HealthcareEvaluation note* Diagnosis Dysphagia, unspecified type- Primary Chronic pain of left heel Heel spur, left Sciatica of left side Heart disease Unspecified heart disease Routine general medical examination at health care facility- Primary Routine general medical examination at a health care facility Benign essential hypertension ([facility]/HCC) Essential hypertension, benign Abnormal glucose tolerance test Impaired glucose tolerance test Nocturia Medicare annual wellness visit, subsequent Type 2 diabetes mellitus without complication, without long-term current use of insulin Hypertriglyceridemia ([facility]) Pure hyperglyceridemia Malignant neoplasm of prostate ([facility]/HCC) Malignant neoplasm of prostate Stage 3a chronic kidney disease (HCC) ([facility]/HCC) Type 2 diabetes mellitus with stage 3a chronic kidney disease, without long-term current use of insulin (HCC) ([facility]) Routine general medical examination at [facility] care facility- Primary Routine general medical examination at a [facility] care facility Type 2 diabetes mellitus with stage 3a chronic kidney disease, without long-term current use of insulin (HCC) ([facility]/HCC) Hypertriglyceridemia ([facility]) Pure hyperglyceridemia Medicare annual wellness visit, subsequent 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 Type 2 diabetes mellitus without complication, without long-term current use of insulin Malignant neoplasm of prostate ([facility]/HCC) Malignant neoplasm of prostate Malignant melanoma of other part of trunk Other chest pain Abnormal CT of brain Nonspecific (abnormal) findings on radiological and other examination of skull and head Shortness of breath- Primary TIA (transient ischemic attack) Unspecified transient cerebral ischemia 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 Acute gout, unspecified cause, unspecified site Ingrown right big toenail Ingrowing nail Great toe pain, right- Primary Hx of gout Acute gout involving toe of right foot, unspecified cause- Primary Acute low back pain without sciatica, unspecified back pain laterality Type 2 diabetes mellitus with chronic kidney disease, with long-term current use of insulin, unspecified CKD stage ([facility]/HCC) Type 2 diabetes mellitus without complication, without long-term current use of insulin Ingrown right big toenail Ingrowing nail documented in this encounter [facility] HealthcareEvaluation note* Diagnosis Dysphagia, unspecified type- Primary Chronic pain of left heel Heel spur, left Sciatica of left side Heart disease Unspecified heart disease Routine general medical examination at health care facility- Primary Routine general medical examination at a health care facility Benign essential hypertension (CMS/HCC) Essential hypertension, benign Abnormal glucose tolerance test Impaired glucose tolerance test Nocturia Medicare annual wellness visit, subsequent Type 2 diabetes mellitus without complication, without long-term current use of insulin Hypertriglyceridemia ([facility]) Pure hyperglyceridemia Malignant neoplasm of prostate ([facility]/HCC) Malignant neoplasm of prostate Stage 3a chronic kidney disease (HCC) ([facility]/HCC) Type 2 diabetes mellitus with stage 3a chronic kidney disease, without long-term current use of insulin (HCC) ([facility]) Routine general medical examination at health care facility- Primary Routine general medical examination at a health care facility Type 2 diabetes mellitus with stage 3a chronic kidney disease, without long-term current use of insulin (HCC) ([facility]) Hypertriglyceridemia ([facility]) Pure hyperglyceridemia Medicare annual wellness visit, subsequent 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 Type 2 diabetes mellitus without complication, without long-term current use of insulin Malignant neoplasm of prostate ([facility]/HCC) Malignant neoplasm of prostate Malignant melanoma of other part of trunk Other chest pain Abnormal CT of brain Nonspecific (abnormal) findings on radiological and other examination of skull and head Shortness of breath- Primary TIA (transient ischemic attack) Unspecified transient cerebral ischemia 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 Acute gout, unspecified cause, unspecified site Ingrown right big toenail Ingrowing nail Acute gout involving toe of right foot, unspecified cause- Primary Acute low back pain without sciatica, unspecified back pain laterality Type 2 diabetes mellitus with chronic kidney disease, with long-term current use of insulin, unspecified CKD stage ([facility]/HCC) Type 2 diabetes mellitus without complication, without long-term current use of insulin Ingrown right big toenail Ingrowing nail Acute low back pain without sciatica, unspecified back pain laterality- Primary documented in this encounter [facility]* Diagnosis Dysphagia, unspecified type- Primary Chronic pain of left heel Heel spur, left Sciatica of left side Heart disease Unspecified heart disease Routine general medical examination at health care facility- Primary Routine general medical examination at a health care facility Benign essential hypertension (CMS/HCC) Essential hypertension, benign Abnormal glucose tolerance test Impaired glucose tolerance test Nocturia Medicare annual wellness visit, subsequent Type 2 diabetes mellitus without complication, without long-term current use of insulin Hypertriglyceridemia ([facility]) Pure hyperglyceridemia Malignant neoplasm of prostate ([facility]/HCC) Malignant neoplasm of prostate Stage 3a chronic kidney disease (HCC) ([facility]/HCC) Type 2 diabetes mellitus with stage 3a chronic kidney disease, without long-term current use of insulin (HCC) ([facility]) Routine general medical examination at health care facility- Primary Routine general medical examination at a health care facility Type 2 diabetes mellitus with stage 3a chronic kidney disease, without long-term current use of insulin (HCC) ([facility]/HCC) Hypertriglyceridemia ([facility]/HCC) Pure hyperglyceridemia Medicare annual wellness visit, subsequent 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 Type 2 diabetes mellitus without complication, without long-term current use of insulin Malignant neoplasm of prostate ([facility]/HCC) Malignant neoplasm of prostate Malignant melanoma of other part of trunk Other chest pain Abnormal CT of brain Nonspecific (abnormal) findings on radiological and other examination of skull and head Shortness of breath- Primary TIA (transient ischemic attack) Unspecified transient cerebral ischemia 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 Acute gout, unspecified cause, unspecified site Ingrown right big toenail Ingrowing nail Acute gout involving toe of right foot, unspecified cause- Primary Acute low back pain without sciatica, unspecified back pain laterality Type 2 diabetes mellitus with chronic kidney disease, with long-term current use of insulin, unspecified CKD stage ([facility]) Type 2 diabetes mellitus without complication, without long-term current use of insulin Ingrown right big toenail Ingrowing nail Acute low back pain without sciatica, unspecified back pain laterality- Primary Lumbar paraspinal muscle spasm Other symptoms referable to back Acute left lumbar radiculopathy Low back pain with left-sided sciatica, unspecified back pain laterality, unspecified chronicity documented in [facility] encounter [facility]* Diagnosis Dysphagia, unspecified type- Primary Chronic pain of left heel Heel spur, left Sciatica of left side Heart disease Unspecified heart disease Routine general medical examination at health care facility- Primary Routine general medical examination at a health care facility Benign essential hypertension ([facility]) Essential hypertension, benign Abnormal glucose tolerance test Impaired glucose tolerance test Nocturia Medicare annual wellness visit, subsequent Type 2 diabetes mellitus without complication, without long-term current use of insulin Hypertriglyceridemia (CMS/HCC) Pure hyperglyceridemia Malignant neoplasm of prostate (CMS/HCC) Malignant neoplasm of prostate Stage 3a chronic kidney disease (HCC) (CMS/HCC) Type 2 diabetes mellitus with stage 3a chronic kidney disease, without long-term current use of insulin (HCC) (CMS/HCC) Routine general medical examination at health care facility- Primary Routine general medical examination at a health care facility Type 2 diabetes mellitus with stage 3a chronic kidney disease, without long-term current use of insulin (HCC) (CMS/HCC) Hypertriglyceridemia (CMS/HCC) Pure hyperglyceridemia Medicare annual wellness visit, subsequent Lipoprotein deficiency disorder (CMS/[facility]) Lipoprotein deficiencies Type 2 diabetes mellitus without complication, without long-term current use of insulin Malignant neoplasm of prostate (CMS/HCC) Malignant neoplasm of prostate Malignant melanoma of other part of trunk Other chest pain Abnormal CT of brain Nonspecific (abnormal) findings on radiological and other examination of skull and head Shortness of breath- Primary TIA (transient ischemic attack) Unspecified transient cerebral ischemia 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 Acute gout, unspecified cause, unspecified site Ingrown right big toenail Ingrowing nail Acute gout involving toe of right foot, unspecified cause- Primary Acute low back pain without sciatica, unspecified back pain laterality Type 2 diabetes mellitus with chronic kidney disease, with long-term current use of insulin, unspecified CKD stage (CMS/HCC) Type 2 diabetes mellitus without complication, without long-term current use of insulin Ingrown right big toenail Ingrowing nail Acute low back pain without sciatica, unspecified back pain laterality- Primary Lumbar paraspinal muscle spasm Other symptoms referable to back Acute left lumbar radiculopathy Low back pain with left-sided sciatica, unspecified back pain laterality, unspecified chronicity documented in [facility]* Diagnosis Dysphagia, unspecified type- Primary Chronic pain of left heel Heel spur, left Sciatica of left side Heart disease Unspecified heart disease Routine general medical examination at health care facility- Primary Routine general medical examination at a health care facility Benign essential hypertension (CMS/[facility]) Essential hypertension, benign Abnormal glucose tolerance test Impaired glucose tolerance test Nocturia Medicare annual wellness visit, subsequent Type 2 diabetes mellitus without complication, without long-term current use of insulin Hypertriglyceridemia ([facility]/HCC) Pure hyperglyceridemia Malignant neoplasm of prostate (CMS/HCC) Malignant neoplasm of prostate Stage 3a chronic kidney disease (HCC) (CMS/HCC) Type 2 diabetes mellitus with stage 3a chronic kidney disease, without long-term current use of insulin (HCC) (CMS/HCC) Routine general medical examination at health care facility- Primary Routine general medical examination at a health care facility Type 2 diabetes mellitus with stage 3a chronic kidney disease, without long-term current use of insulin (HCC) (CMS/HCC) Hypertriglyceridemia ([facility]/HCC) Pure hyperglyceridemia Medicare annual wellness visit, subsequent 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 Type 2 diabetes mellitus without complication, without long-term current use of insulin Malignant neoplasm of prostate (CMS/HCC) Malignant neoplasm of prostate Malignant melanoma of other part of trunk Other chest pain Abnormal CT of brain Nonspecific (abnormal) findings on radiological and other examination of skull and head Shortness of breath- Primary TIA (transient ischemic attack) Unspecified transient cerebral ischemia 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 Acute gout, unspecified cause, unspecified site Ingrown right big toenail Ingrowing nail Acute gout involving toe of right foot, unspecified cause- Primary Acute low back pain without sciatica, unspecified back pain laterality Type 2 diabetes mellitus with chronic kidney disease, with long-term current use of insulin, unspecified CKD stage (CMS/HCC) Type 2 diabetes mellitus without complication, without long-term current use of insulin Ingrown right big toenail Ingrowing nail Acute low back pain without sciatica, unspecified back pain laterality- Primary Lumbar paraspinal muscle spasm Other symptoms referable to back Acute left lumbar radiculopathy documented in [facility]* Diagnosis Dysphagia, unspecified type- Primary Chronic pain of left heel Heel spur, left Sciatica of left side Heart disease Unspecified heart disease Routine general medical examination at health care facility- Primary Routine general medical examination at a health care facility Benign essential hypertension (CMS/HCC) Essential hypertension, benign Abnormal glucose tolerance test Impaired glucose tolerance test Nocturia Medicare annual wellness visit, subsequent Type 2 diabetes mellitus without complication, without long-term current use of insulin Hypertriglyceridemia (CMS/HCC) Pure hyperglyceridemia Malignant neoplasm of prostate (CMS/HCC) Malignant neoplasm of prostate Stage 3a chronic kidney disease (HCC) ([facility]/HCC) Type 2 diabetes mellitus with stage 3a chronic kidney disease, without long-term current use of insulin (HCC) ([facility]/HCC) Routine general medical examination at health care facility- Primary Routine general medical examination at a [facility] Type 2 diabetes mellitus with stage 3a chronic kidney disease, without long-term current use of insulin (HCC) (CMS/HCC) Hypertriglyceridemia (CMS/HCC) Pure hyperglyceridemia Medicare annual wellness visit, subsequent 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 Type 2 diabetes mellitus without complication, without long-term current use of insulin Malignant neoplasm of prostate (CMS/HCC) Malignant neoplasm of prostate Malignant melanoma of other part of trunk Other chest pain Abnormal CT of brain Nonspecific (abnormal) findings on radiological and other examination of skull and head Shortness of breath- Primary TIA (transient ischemic attack) Unspecified transient cerebral ischemia 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 Acute gout, unspecified cause, unspecified site Ingrown right big toenail Ingrowing nail Acute gout involving toe of right foot, unspecified cause- Primary Acute low back pain without sciatica, unspecified back pain laterality Type 2 diabetes mellitus with chronic kidney disease, with long-term current use of insulin, unspecified CKD stage (CMS/HCC) Type 2 diabetes mellitus without complication, without long-term current use of insulin Ingrown right big toenail Ingrowing nail Acute low back pain without sciatica, unspecified back pain laterality- Primary Lumbar paraspinal muscle spasm Other symptoms referable to back Acute left lumbar radiculopathy documented in [facility]* Diagnosis Dysphagia, unspecified type- Primary Chronic pain of left heel Heel spur, left Sciatica of left side Heart disease Unspecified heart disease Routine general medical examination at health care facility- Primary Routine general medical examination at a [facility] facility Benign essential hypertension ([facility]/HCC) Essential hypertension, benign Abnormal glucose tolerance test Impaired glucose tolerance test Nocturia Medicare annual wellness visit, subsequent Type 2 diabetes mellitus without complication, without long-term current use of insulin Hypertriglyceridemia (CMS/HCC) Pure hyperglyceridemia Malignant neoplasm of prostate (CMS/HCC) Malignant neoplasm of prostate Stage 3a chronic kidney disease (HCC) ([facility]/HCC) Type 2 diabetes mellitus with stage 3a chronic kidney disease, without long-term current use of insulin (HCC) ([facility]) Routine general medical examination at health care facility- Primary Routine general medical examination at a [facility] Type 2 diabetes mellitus with stage 3a chronic kidney disease, without long-term current use of insulin (HCC) (CMS/HCC) Hypertriglyceridemia (CMS/HCC) Pure hyperglyceridemia Medicare annual wellness visit, subsequent 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 Type 2 diabetes mellitus without complication, without long-term current use of insulin Malignant neoplasm of prostate (CMS/HCC) Malignant neoplasm of prostate Malignant melanoma of other part of trunk Other chest pain Abnormal CT of brain Nonspecific (abnormal) findings on radiological and other examination of skull and head Shortness of breath- Primary TIA (transient ischemic attack) Unspecified transient cerebral ischemia 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 Acute gout, unspecified cause, unspecified site Ingrown right big toenail Ingrowing nail Acute gout involving toe of right foot, unspecified cause- Primary Acute low back pain without sciatica, unspecified back pain laterality Type 2 diabetes mellitus with chronic kidney disease, with long-term current use of insulin, unspecified CKD stage (CMS/HCC) Type 2 diabetes mellitus without complication, without long-term current use of insulin Ingrown right big toenail Ingrowing nail Acute low back pain without sciatica, unspecified back pain laterality- Primary Lumbar paraspinal muscle spasm Other symptoms referable to back Acute left lumbar radiculopathy [facility] History of prostate cancer- Primary Personal history of malignant neoplasm of prostate [facility] Diagnosis Dysphagia, unspecified type- Primary Chronic pain of left heel Heel spur, left Sciatica of left side Heart disease Unspecified heart disease Routine general medical examination at health care facility- Primary Routine general medical examination at a health care facility Benign essential hypertension (CMS/HCC) Essential hypertension, benign Abnormal glucose tolerance test Impaired glucose tolerance test Nocturia Medicare annual wellness visit, subsequent Type 2 diabetes mellitus without complication, without long-term current use of insulin Hypertriglyceridemia (CMS/HCC) Pure hyperglyceridemia Malignant neoplasm of prostate (CMS/HCC) Malignant neoplasm of prostate Stage 3a chronic kidney disease (HCC) (CMS/HCC) Type 2 diabetes mellitus with stage 3a chronic kidney disease, without long-term current use of insulin (HCC) (CMS/HCC) Routine general medical examination at health care facility- Primary Routine general medical examination at a health care facility Type 2 diabetes mellitus with stage 3a chronic kidney disease, without long-term current use of insulin (HCC) (CMS/HCC) Hypertriglyceridemia (CMS/HCC) Pure hyperglyceridemia Medicare annual wellness visit, subsequent 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 Type 2 diabetes mellitus without complication, without long-term current use of insulin Malignant neoplasm of prostate (CMS/HCC) Malignant neoplasm of prostate Malignant melanoma of other part of trunk Other chest pain Abnormal CT of brain Nonspecific (abnormal) findings on radiological and other examination of skull and head Shortness of breath- Primary TIA (transient ischemic attack) Unspecified transient cerebral ischemia 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 Acute gout, unspecified cause, unspecified site Ingrown right big toenail Ingrowing nail Acute gout involving toe of right foot, unspecified cause- Primary Acute low back pain without sciatica, unspecified back pain laterality Type 2 diabetes mellitus with chronic kidney disease, with long-term current use of insulin, unspecified CKD stage ([facility]) Type 2 diabetes mellitus without complication, without long-term current use of insulin Ingrown right big toenail Ingrowing nail Acute low back pain without sciatica, unspecified back pain laterality- Primary Lumbar paraspinal muscle spasm Other symptoms referable to back Acute left lumbar radiculopathy documented in [facility]* Diagnosis Dysphagia, unspecified type- Primary Chronic pain of left heel Heel spur, left Sciatica of left side Heart disease Unspecified heart disease Routine general medical examination at health care facility- Primary Routine general medical examination at a health care facility Benign essential hypertension Essential hypertension, benign Abnormal glucose tolerance test Impaired glucose tolerance test Nocturia Medicare annual wellness visit, subsequent Type 2 diabetes mellitus without complication, without long-term current use of insulin (HCC) Hypertriglyceridemia Pure hyperglyceridemia Malignant neoplasm of prostate (HCC) Malignant neoplasm of prostate Stage 3a chronic kidney disease ([facility]-HCC) Type 2 diabetes mellitus with stage 3a chronic kidney disease, without long-term current use of insulin (HCC) Routine general medical examination at health care facility- Primary Routine general medical examination at a health care facility Type 2 diabetes mellitus with stage 3a chronic kidney disease, without long-term current use of insulin (HCC) Hypertriglyceridemia Pure hyperglyceridemia Medicare annual wellness visit, subsequent Lipoprotein deficiency disorder Lipoprotein deficiencies Type 2 diabetes mellitus without complication, without long-term current use of insulin (HCC) Malignant neoplasm of prostate (HCC) Malignant neoplasm of prostate 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) Other chest pain Abnormal CT of brain Nonspecific (abnormal) findings on radiological and other examination of skull and head Shortness of breath- Primary TIA (transient ischemic attack) Unspecified transient cerebral ischemia 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 Acute gout, unspecified cause, unspecified site Ingrown right big toenail Ingrowing nail Acute gout involving toe of right foot, unspecified cause- Primary Acute low back pain without sciatica, unspecified back pain laterality Type 2 diabetes mellitus with chronic kidney disease, with long-term current use of insulin, unspecified CKD stage (HCC) Type 2 diabetes mellitus without complication, without long-term current use of insulin (HCC) Ingrown right big toenail Ingrowing nail Acute low back pain without sciatica, unspecified back pain laterality- Primary Lumbar paraspinal muscle spasm Other symptoms referable to back documented in this [facility]* Diagnosis Dysphagia, unspecified type- Primary Chronic pain of left heel Heel spur, left Sciatica of left side Heart disease Unspecified heart disease Routine general medical examination at health care facility- Primary Routine general medical examination at a health care facility Benign essential hypertension Essential hypertension, benign Abnormal glucose tolerance test Impaired glucose tolerance test Nocturia Medicare annual wellness visit, subsequent Type 2 diabetes mellitus without complication, without long-term current use of insulin (HCC) Hypertriglyceridemia Pure hyperglyceridemia Malignant neoplasm of prostate (HCC) Malignant neoplasm of prostate Stage 3a chronic kidney disease ([facility]-HCC) Type 2 diabetes mellitus with stage 3a chronic kidney disease, without long-term current use of insulin (HCC) Routine general medical examination at health care facility- Primary Routine general medical examination at a [facility] care facility Type 2 diabetes mellitus with stage 3a chronic kidney disease, without long-term current use of insulin (HCC) Hypertriglyceridemia Pure hyperglyceridemia Medicare annual wellness visit, subsequent Lipoprotein deficiency disorder Lipoprotein deficiencies Type 2 diabetes mellitus without complication, without long-term current use of insulin (HCC) Malignant neoplasm of prostate (HCC) Malignant neoplasm of prostate 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) Other chest pain Abnormal CT of brain Nonspecific (abnormal) findings on radiological and other examination of skull and head Shortness of breath- Primary TIA (transient ischemic attack) Unspecified transient cerebral ischemia 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 Acute gout, unspecified cause, unspecified site Ingrown right big toenail Ingrowing nail Acute gout involving toe of right foot, unspecified cause- Primary Acute low back pain without sciatica, unspecified back pain laterality Type 2 diabetes mellitus with chronic kidney disease, with long-term current use of insulin, unspecified CKD stage (HCC) Type 2 diabetes mellitus without complication, without long-term current use of insulin (HCC) Ingrown right big toenail Ingrowing nail Acute low back pain without sciatica, unspecified back pain laterality- Primary Lumbar paraspinal muscle spasm Other symptoms referable to back Acute left lumbar radiculopathy documented in [facility]* Diagnosis Dysphagia, unspecified type- Primary Chronic pain of left heel Heel spur, left Sciatica of left side Heart disease Unspecified heart disease Routine general medical examination at health care facility- Primary Routine general medical examination at a health care facility Benign essential hypertension Essential hypertension, benign Abnormal glucose tolerance test Impaired glucose tolerance test Nocturia Medicare annual wellness visit, subsequent Type 2 diabetes mellitus without complication, without long-term current use of insulin (HCC) Hypertriglyceridemia Pure hyperglyceridemia Malignant neoplasm of prostate (HCC) Malignant neoplasm of prostate Stage 3a chronic kidney disease ([facility]-HCC) Type 2 diabetes mellitus with stage 3a chronic kidney disease, without long-term current use of insulin (HCC) Routine general medical examination at health care facility- Primary Routine general medical examination at a health care facility Type 2 diabetes mellitus with stage 3a chronic kidney disease, without long-term current use of insulin (HCC) Hypertriglyceridemia Pure hyperglyceridemia Medicare annual wellness visit, subsequent Lipoprotein deficiency disorder Lipoprotein deficiencies Type 2 diabetes mellitus without complication, without long-term current use of insulin (HCC) Malignant neoplasm of prostate (HCC) Malignant neoplasm of prostate 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) Other chest pain Abnormal CT of brain Nonspecific (abnormal) findings on radiological and other examination of skull and head Shortness of breath- Primary TIA (transient ischemic attack) Unspecified transient cerebral ischemia 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 Acute gout, unspecified cause, unspecified site Ingrown right big toenail Ingrowing nail Acute gout involving toe of right foot, unspecified cause- Primary Acute low back pain without sciatica, unspecified back pain laterality Type 2 diabetes mellitus with chronic kidney disease, with long-term current use of insulin, unspecified CKD stage (HCC) Type 2 diabetes mellitus without complication, without long-term current use of insulin (HCC) Ingrown right big toenail Ingrowing nail Benign prostatic hyperplasia with urinary obstruction- Primary Neck pain Cervicalgia documented in this [facility]* Diagnosis Dysphagia, unspecified type- Primary Chronic pain of left heel Heel spur, left Sciatica of left side Heart disease Unspecified heart disease Routine general medical examination at health care facility- Primary Routine general medical examination at a [facility] Benign essential hypertension Essential hypertension, benign Abnormal glucose tolerance test Impaired glucose tolerance test Nocturia Medicare annual wellness visit, subsequent Type 2 diabetes mellitus without complication, without long-term current use of insulin (HCC) Hypertriglyceridemia Pure hyperglyceridemia Malignant neoplasm of prostate (HCC) Malignant neoplasm of prostate Stage 3a chronic kidney disease ([facility]-HCC) Type 2 diabetes mellitus with stage 3a chronic kidney disease, without long-term current use of insulin (HCC) Routine general medical examination at [facility] care facility- Primary Routine general medical examination at [facility] Type 2 diabetes mellitus with stage 3a chronic kidney disease, without long-term current use of insulin (HCC) Hypertriglyceridemia Pure hyperglyceridemia Medicare annual wellness visit, subsequent Lipoprotein deficiency disorder Lipoprotein deficiencies Type 2 diabetes mellitus without complication, without long-term current use of insulin (HCC) Malignant neoplasm of prostate (HCC) Malignant neoplasm of prostate 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) Other chest pain Abnormal CT of brain Nonspecific (abnormal) findings on radiological and other examination of skull and head Shortness of breath- Primary TIA (transient ischemic attack) Unspecified transient cerebral ischemia 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 Acute gout, unspecified cause, unspecified site Ingrown right big toenail Ingrowing nail Acute gout involving toe of right foot, unspecified cause- Primary Acute low back pain without sciatica, unspecified back pain laterality Type 2 diabetes mellitus with chronic kidney disease, with long-term current use of insulin, unspecified CKD stage (HCC) Type 2 diabetes mellitus without complication, without long-term current use of insulin (HCC) Ingrown right big toenail Ingrowing nail Pain, neck- Primary Cervical paraspinal muscle spasm Spasm of muscle documented in this encounter [facility]* Diagnosis Dysphagia, unspecified type- Primary Chronic pain of left heel Heel spur, left Sciatica of left side Heart disease Unspecified heart disease Routine general medical examination at health care facility- Primary Routine general medical examination at a [facility] Benign essential hypertension Essential hypertension, benign Abnormal glucose tolerance test Impaired glucose tolerance test Nocturia Medicare annual wellness visit, subsequent Type 2 diabetes mellitus without complication, without long-term current use of insulin (HCC) Hypertriglyceridemia Pure hyperglyceridemia Malignant neoplasm of prostate (HCC) Malignant neoplasm of prostate Stage 3a chronic kidney disease ([facility]-HCC) Type 2 diabetes mellitus with stage 3a chronic kidney disease, without long-term current use of insulin (HCC) Routine general medical examination at health care facility- Primary Routine general medical examination at a [facility] care facility Type 2 diabetes mellitus with stage 3a chronic kidney disease, without long-term current use of insulin (HCC) Hypertriglyceridemia Pure hyperglyceridemia Medicare annual wellness visit, subsequent Lipoprotein deficiency disorder Lipoprotein deficiencies Type 2 diabetes mellitus without complication, without long-term current use of insulin (HCC) Malignant neoplasm of prostate (HCC) Malignant neoplasm of prostate 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) Other chest pain Abnormal CT of brain Nonspecific (abnormal) findings on radiological and other examination of skull and head Shortness of breath- Primary TIA (transient ischemic attack) Unspecified transient cerebral ischemia 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 Acute gout, unspecified cause, unspecified site Ingrown right big toenail Ingrowing nail Acute gout involving toe of right foot, unspecified cause- Primary Acute low back pain without sciatica, unspecified back pain laterality Type 2 diabetes mellitus with chronic kidney disease, with long-term current use of insulin, unspecified CKD stage (HCC) Type 2 diabetes mellitus without complication, without long-term current use of insulin (HCC) Ingrown right big toenail Ingrowing nail Pain, neck- Primary Cervical paraspinal muscle spasm Spasm of muscle [facility] - [facility]* Type Description Date Medical History diabetes Medical History Prostate cancer Surgical History donated a kidney Surgical History kidney stones, stent Surgical History Right knee meniscus Surgical History appendectomy Hospitalization History see above [facility] Other History general Narrative - Reported* Type Description Date Medical History diabetes Medical History Prostate cancer Medical History 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 Medical History MELANOMA RIGHT HOAHAOISM Medical History TYPE II DIABETES Medical History MELANOMA MID BACK Medical History MELANOMA ON BACK 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 NUMBNESS Surgical History donated a kidney Surgical History kidney stones, stent Surgical History Right knee meniscus Surgical History appendectomy Surgical History MANY SKIN LESIONS Surgical History TONSILECTOMY AND ADNOIDS Hospitalization History see above Hospitalization History HITAL HERNIA [facility] Other History general Narrative - Reported* Type Description Date Medical History diabetes Medical History Prostate cancer Medical History 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 Medical History MELANOMA RIGHT HOAHAOISM Medical History TYPE II DIABETES Medical History MELANOMA MID BACK Medical History MELANOMA ON BACK 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 NUMBNESS Medical History HYPERLIPIDEMIA Medical History COVID 07/2023 Surgical History donated a kidney Surgical History kidney stones, stent Surgical History Right knee meniscus Surgical History appendectomy Surgical History MANY SKIN LESIONS Surgical History TONSILECTOMY AND ADNOIDS Hospitalization History see above Hospitalization History HITAL HERNIA [facility] Other Hospital course Narrative No data available for this section [facility] Discharge instructions No data available for this section [facility] progress note No data available for this section [facility] reason for referral (narrative)* Consultation (Routine) - Authorized Specialty Diagnoses / Procedures Referred By La case Referred To Contact Dermatology Diagnoses Melanoma in situ of forehead (CMS/HCC) Procedures Follow Up In Dermatology - Nurse Visit Goyo Valladares MD PhD [address] , [place] [address] Goyo Valladares MD PhD [address] , [place] [address] Referral ID Status Reason Start Date Expiration Date V isits Requested Visits Authorized [id number] Authorized 11/03/2023 11/02/2024 1 1 [facility] Work Phone: Reason for visit Narrative* Rehabilitation - Outpatient (Routine) - Authorized Specialty Diagnoses / Procedures Referred By La case Referred To Contact Physical Therapy Diagnoses Acute low back pain without sciatica, unspecified back pain laterality Procedures SD OFFICE/OUTPATIENT NEW HIGH MDM 60 MINUTES Natan Keyes MD 112 [facility] [address] [place] [address] Phone: tel: fax: Marilyn Ochoa, PT Referral ID Status Reason Start Date Expiration Date Visits Requested Visits Authorized [id number] Authorized Specialty Services Required 12/04/2024 05/27/2025 10 10 [facility] N[facility]* Rehabilitation - Outpatient (Routine) - Authorized Specialty Diagnoses / Procedures Referred By Contac t Referred To Contact Physical Therapy Diagnoses Acute low back pain without sciatica, unspecified back pain laterality Procedures SD OFFICE/OUTPATIENT NEW HIGH MDM 60 MINUTES Natan Keyes MD 112 [facility] [address] [place] [address] Phone: tel: fax: Marilyn Ochoa, PT Referral ID Status Reason Start Date Expiration Date Visits Requested Visits Authorized [id number] Authorized Specialty Services Required 12/04/2024 08/22/2025 10 30 [facility] N[facility]ative* Rehabilitation - Outpatient (Routine) - Authorized Specialty Diagnoses / Procedures Referred By Contac t Referred To Contact Physical Therapy Diagnoses Neck pain Procedures SD OFFICE/OUTPATIENT NEW HIGH MDM 60 MINUTES Danya Brasher PA [address] [address] Phone: tel: fax: Elicia Terrazas, PT 112 [facility] [address] [place] [address] Phone: tel: fax: Referral ID Status Reason Start Date Expiration Date Visits Requested Visits Authorized [id number] Authorized Specialty Services Required 02/13/2025 08/12/2025 10 10 [facility] N[facility]ative* Rehabilitation - Outpatient (Routine) - Authorized Specialty Diagnoses / Procedures Referred By Contac t Referred To Contact Physical Therapy Diagnoses Neck pain Procedures SD OFFICE/OUTPATIENT NEW HIGH MDM 60 MINUTES Danya Brasher PA 112 [facility] [address] [place] [address] Phone: tel: fax: CourtneyElicia to Bebo, PT 112 [place] [address] Phone: tel: fax: Referral ID Status Reason Start Date Expiration Date Visits Requested Visits Authorized [id number] Authorized Specialty Services Required 02/13/2025 08/22/2025 10 10 [facility] Summary Purpose Family History Relationship Condition Age at Onset Recorded Date/T [...] obstructive pulmonary disease Unk nown Advance Directives Advance Directive Response Recorded Date/ Time Advance [...] cyst, right Single kidney Vitamin D deficiency Chief Complaint RENAL 6 month follow up r40.4 r68.89 r26.89 Reason for Visit Arteriolonephroscler osis BPH without urinary obstruction Chronic kidney disease, 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 Gout Renal cyst, right Single kidney Vitamin D deficiency Chief Complaint Admit Date Poss gout right foot August 18, 2024 9:15am R07.89 September 18, 2024 8 :58am R07.89 September 18, 2024 3 :34pm Reason for Visit Admit Date Gouty arthritis of right great toe Decem 2023 9:15am Reason for Referral Specialty Diagnoses / Procedures Referred By La case Referred To Contact Diagnoses Transient alteration of awareness Forgetfulness Loss of balance Procedures CT head wo IV contrast Subha Knight, TIMBER SUPERVISOR 112 [facility] [address] [place] [address] [facility] Scheduling [address] [place] [address] Referral ID Status Reason Start Date Expiration Date V isits Requested Visits Authorized [id number] Pending Review 04/27/2024 10/24/2024 1 1 Additional Source Comments Source Comments (unrecognize d section and content) In the event this informatio n is protected by the Federal Confidentiality of Alcohol and Drug Abuse Patient Records regulations: The Federal rules restrict any use of the information to criminally investigate or prosecute any alcohol or drug abuse patient.[facility] the event this information is protected by the Federal Confidentiality of Alcohol and Drug Abuse Patient Records regulations: The Federal rules restrict any use of the information to criminally investigate or prosecute any alcohol or drug abuse patient.[facility] HamiltonIn the event this information is protected by the Federal Confidentiality of Alcohol and Drug Abuse Patient Records regulations: The Federal rules restrict any use of the information to criminally investigate or prosecute any alcohol or drug abuse patient.[facility] HamiltonIn the event this information is protected by the Federal Confidentiality of Alcohol and Drug Abuse Patient Records regulations: The Federal rules restrict any use of the information to criminally investigate or prosecute any alcohol or drug abuse patient.[facility] HamiltonIn the event this information is protected by the Federal Confidentiality of Alcohol and Drug Abuse Patient Records regulations: The Federal rules restrict any use of the information to criminally investigate or prosecute any alcohol or drug abuse patient.[facility] HamiltonIn the event this information is protected by the Federal Confidentiality of Alcohol and Drug Abuse Patient Records regulations: The Federal rules restrict any use of the information to criminally investigate or prosecute any alcohol or drug abuse patient.[facility] HamiltonIn the event this information is protected by the Federal Confidentiality of Alcohol and Drug Abuse Patient Records regulations: The Federal rules restrict any use of the information to criminally investigate or prosecute any alcohol or drug abuse patient.[facility] HamiltonIn the event this information is protected by the Federal Confidentiality of Alcohol and Drug Abuse Patient Records regulations: The Federal rules restrict any use of the information to criminally investigate or prosecute any alcohol or drug abuse patient.[facility] HamiltonIn the event this information is protected by the Federal Confidentiality of Alcohol and Drug Abuse Patient Records regulations: The Federal rules restrict any use of the information to criminally investigate or prosecute any alcohol or drug abuse patient.[facility] HamiltonIn the event this information is protected by the Federal Confidentiality of Alcohol and Drug Abuse Patient Records regulations: The Federal rules restrict any use of the information to criminally investigate or prosecute any alcohol or drug abuse patient.[facility] HamiltonIn the event this information is protected by the Federal Confidentiality of Alcohol and Drug Abuse Patient Records regulations: The Federal rules restrict any use of the information to criminally investigate or prosecute any alcohol or drug abuse patient.[facility] HamiltonIn the event this information is protected by the Federal Confidentiality of Alcohol and Drug Abuse Patient Records regulations: The Federal rules restrict any use of the information to criminally investigate or prosecute any alcohol or drug abuse patient.[facility] Reason for Visit (unrecogniz ed section and content) Reason Onset Date Comments Refill Request 12/01/2021 Reason Comments Prostate Cancer Reason Comments MOHS Surgery Right Forehead, MIS Specialty Diagnoses / Procedures Referred By Contpatric t Referred To Contact Dermatology Diagnoses Neoplasm of uncertain behavior of skin Julian Hebert, SPACER TYPE BAR AND SEGMENT-COMMUNITY DEVELOPMENT SPECIALIST [address] [place] [address] Referral ID Status Reason Start Date Expiration Date Visits Requested Visits Authorized [id number] Authorized Specialty Services Required 10/12/2023 10/11/2024 1 1 Reason Comments Wound Check 9 days s/p mohs mariia noma right taoism Specialty Diagnoses / Procedures Referred By Contpatric t Referred To Contact Dermatology Diagnoses Melanoma in situ of forehead ([facility]) Procedures Follow Up In Dermatology - Nurse Visit Goyo Valladares MD PhD [address], [address] [address] Goyo Valladares MD PhD [address], [facility] [address] [place] [address] Referral ID Status Reason Start Date Expiration Date V isits Requested Visits Authorized [id number] Authorized 11/03/2023 11/02/2024 1 1 Reason Comments Skin Check Reason Comments Medicare Annual Wellness Visit Estrellita case Discuss his LPR Reason Comments Ingrown Toenail Rt gt ingrown Reason Comments go over CT results Reason Comments Gout Reason Comments gout Care Teams (unrecognized sec tion and content) Team Status: Active Member Role Status Keely Keyes MD Primary Care Provider Active Team Status: Inactive Member Role Status Keely Keyes MD Primary Care Provider Active S tart: August 18, 2024 End: August 18, 2024 Sallie Blal APRN Attending Provider Active Start: August 18, 2024 End: August 18, 2024 Team Status: Inactive Member Role Status Keely Keyes MD Primary Care Provide r, Attending Provider Active Start: September 18, 2024 End: September 18, 2024 Irina Ann MD Referring Provider Active Sta rt: September 18, 2024 End: September 18, 2024 Team Status: Active Member Role Status Keely Keyes MD Primary Care Provide r, Other Provider Active Start: September 18, 2024 Irina Ann MD Attending Provider, Referring Provider Active Start: September 18, 2024 Team Status: Active Member Role Status Keely Keyes MD Primary Care Provider Active S tart: March 06, 2024 Jillian Edwards MD Attending Provider Active Star t: March 06, 2024 Team Status: Inactive Member Role Status Keely Keyes MD Primary Care Provider Active S tart: March 15, 2024 End: March 15, 2024 Jillian Edwards MD Attending Provider Active Star t: March 15, 2024 End: March 15, 2024 Team Status: Inactive Member Role Status Keely Keyes MD Primary Care Provider Active S tart: May 03, 2024 End: May 03, 2024 Subha Knight , RENAY Attending Provider Active Start: May 03, 2024 End: May 03, 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 Relationship Specialty Start Date End Date Natan Keyes 112 [facility] [address] [place] [address] PCP - General Family Practice 04/17/20 Team Status: Inactive Member Role Status Keely Keyes MD Primary Care Provider Active Jillian Edwards MD Attending Provider Active 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 Relationship Specialty Start Date End Date Natan Keyes [address] [place] [address] PCP - General Family Medicine 04/17/20 Team Status: Inactive Member Role Status Dates Natan Keyes MD Primary Care Provider Active Chuck Hamm MD Attending Provider Active Team Status: Inactive Member Role Status Dates Natan Keyes MD Primary Care Provider Active Goyo Mondragon DO [facility] Attending Provider Active Team Status: Inactive Member Role Status Dates Natan Keyes MD Primary Care Provider Active S tart: September 15, 2023 End: September 15, 2023 Jillian Edwards MD Attending Provider Active Star t: September 15, 2023 End: September 15, 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 Relationship Specialty Start Date End Date Natan Keyes MD [address] [place] [address] PCP - ACO Reach 01/14/23 Naatn Keyes MD [address] [place] [address] PCP - General Family Medicine 02/25/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 Relationship Specialty Start Date End Date Natan Keyes MD [address] [place] [address] PCP - General Family Medicine 04/17/20 Team Status: Inactive Member Role Status Dates Natan Keyes MD Primary Care Provider Active S tart: January 24, 2024 End: January 24, 2024 Sallie Ball APRN Attending Provider Active Start: January 24, 2024 End: January 24, 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 Relationship Specialty Start Date End Date Natan Keyes MD [address] [facility] [address] [place] [address] PCP - ACO Reach 01/14/23 Natan Keyes MD [address] [place] [address] PCP - General Family Medicine 02/25/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 Relationship Specialty Start Date End Date Natan Keyes MD [address] [place] [address] PCP - ACO Reach 01/14/23 Natan Keyes MD [address] [place] [address] PCP - General Family Medicine 02/25/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 Relationship Specialty Start Date End Date Natan Keyes MD [address] [place] [address] PCP - ACO Reach 01/14/23 Natan Keyes MD [address] [place] [address] PCP - General Family Medicine 02/25/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 Relationship Specialty Start Date End Date Natan Keyes MD [address] [place] [address] PCP - ACO Reach 01/14/23 Natan Keyes MD [address] [place] [address] PCP - General Family Medicine 02/25/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 Relationship Specialty Start Date End Date Natan Keyes MD [address] [place] [address] PCP - ACO Reach 01/14/23 Natan Keyes MD [address] [place] [address] PCP - General Family Medicine 02/25/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 Relationship Specialty Start Date End Date Natan Keyes MD [address] [place] [address] PCP - ACO Reach 01/14/23 Natan Keyes MD [address] [place] [address] PCP - General Family Medicine 02/25/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 Relationship Specialty Start Date End Date Natan Keyes MD [address] [place] [address] PCP - ACO Reach 01/14/23 Natan Keyes MD [address] [place] [address] PCP - General Family Medicine 02/25/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 Relationship Specialty Start Date End Date Natan Keyes MD [address] [place] [address] PCP - ACO Reach 01/14/23 Natan Keyes MD [address] [place] [address] PCP - General Family Medicine 02/25/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 Relationship Specialty Start Date End Date Natan Keyes MD [address] [place] [address] PCP - ACO Reach 01/14/23 Natan Keyes MD [address] [place] [address] PCP - General Family Medicine 02/25/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 Relationship Specialty Start Date End Date Natan Keyes MD [address] [place] [address] PCP - ACO Reach 01/14/23 Natan Keyes MD [address] [place] [address] PCP - General Family Medicine 02/25/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 Relationship Specialty Start Date End Date Natan Keyes MD [address] [place] [address] PCP - ACO Reach 01/14/23 Natan Keyes MD [address] [place] [address] PCP - General Family Medicine 02/25/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 Relationship Specialty Start Date End Date Natan Keyes MD [address] [place] [address] PCP - ACO Reach 01/14/23 Natan Keyes MD [address] [place] [address] PCP - General Family Medicine 02/25/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 Relationship Specialty Start Date End Date Natan Keyes MD [address] [place] [address] PCP - ACO Reach 01/14/23 Natan Keyes MD [address] [place] [address] PCP - General Family Medicine 02/25/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 Relationship Specialty Start Date End Date Natan Keyes MD [address] [place] [address] PCP - ACO Reach 01/14/23 Natan Keyes MD [address] [place] [address] PCP - General Family Medicine 02/25/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 Relationship Specialty Start Date End Date Natan Keyes MD [address] [place] [address] PCP - ACO Reach 01/14/23 Natan Keyes MD [address] [place] [address] PCP - General Family Medicine 02/25/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 Relationship Specialty Start Date End Date Natan Keyes MD [address] [place] [address] PCP - ACO Reach 01/14/23 Natan Keyes MD [address] [place] [address] PCP - General Family Medicine 02/25/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 Relationship Specialty Start Date End Date Natan Keyes MD [address] [place] [address] PCP - ACO Reach 01/14/23 Natan Keyes MD [address] [place] [address] PCP - General Family Medicine 02/25/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 Relationship Specialty Start Date End Date Natan Keyes MD [address] [place] [address] PCP - ACO Reach 01/14/23 Natan Keyes MD [address] [place] [address] PCP - General Family Medicine 02/25/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 Relationship Specialty Start Date End Date Natan Keyes MD [address] [place] [address] PCP - ACO Reach 01/14/23 Natan Keyes MD [address] [facility] [address] [place] [address] PCP - General Family Medicine 02/25/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 Relationship Specialty Start Date End Date Natan Keyes MD [address] [facility] [address] [place] [address] PCP - ACO Reach 01/14/23 Natan Keyes MD [address] [facility] [address] [place] [address] PCP - General Family Medicine 02/25/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 Relationship Specialty Start Date End Date Natan Keyes MD [address] [facility] [address] [place] [address] PCP - ACO Reach 01/14/23 Natan Keyes MD [address] [place] [address] PCP - General Family Medicine 02/25/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 Relationship Specialty Start Date End Date Natan Keyes MD [address] [facility] [address] [place] [address] PCP - ACO Reach 01/14/23 Natan Keyes MD [address] [place] [address] PCP - General Family Medicine 02/25/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 Relationship Specialty Start Date End Date Natan Keyes MD [address] [place] [address] PCP - ACO Reach 01/14/23 Natan Keyes MD [address] [place] [address] PCP - General Family Medicine 02/25/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 Relationship Specialty Start Date End Date Natan Keyes MD [address] [place] [address] PCP - ACO Reach 01/14/23 Natan Keyes MD [address] [place] [address] PCP - General Family Medicine 02/25/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 Relationship Specialty Start Date End Date Natan Keyes MD [address] [place] [address] PCP - ACO Reach 01/14/23 Natan Keyes MD [address] [place] [address] PCP - General Family Medicine 02/25/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 Relationship Specialty Start Date End Date Natan Keyes MD [address] [place] [address] PCP - ACO Reach 01/14/23 Natan Keyes MD [address] [place] [address] PCP - General Family Medicine 02/25/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 Relationship Specialty Start Date End Date Natan Keyes MD [address] [place] [address] PCP - ACO Reach 01/14/23 Natan Keyes MD [address] [place] [address] PCP - General Family Medicine 02/25/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 Relationship Specialty Start Date End Date Natan Keyes MD [address] [place] [address] PCP - ACO Reach 01/14/23 Natan Keyes MD [address] [place] [address] PCP - General Family Medicine 02/25/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 Relationship Specialty Start Date End Date Natan Keyes MD [address] [place] [address] PCP - ACO Reach 01/14/23 Natan Keyes MD [address] [place] [address] PCP - General Family Medicine 02/25/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 Relationship Specialty Start Date End Date Natan Keyes MD [address] [place] [address] PCP - ACO Reach 01/14/23 Natan Keyes MD [address] [place] [address] PCP - General Family Medicine 02/25/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 Relationship Specialty Start Date End Date Natan Keyes MD [address] [facility] 110 [place] [address] PCP - General Family Medicine 04/17/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 Relationship Specialty Start Date End Date Natan Keyes MD [address] [facility] [address] [place] [address] PCP - ACO Reach 01/14/23 Natan Keyes MD [address] [facility] [address] [place] [address] PCP - General Family Medicine 02/25/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 Relationship Specialty Start Date End Date Natan Keyes MD [address] [facility] [address] [place] [address] PCP - ACO Reach 01/14/23 Natan Keyes MD [address] [facility] [address] [place] [address] PCP - General Family Medicine 02/25/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 Relationship Specialty Start Date End Date Natan Keyes MD [address] [facility] [address] [place] [address] PCP - ACO Reach 01/14/23 Natan Keyes MD [address] [facility] [address] [place] [address] PCP - General Family Medicine 02/25/23 (unrecognized sect ion and content) No Status Records FoundNo Status Records FoundNo Status Records FoundNo Status Records FoundNo Status Records FoundNo Status Records FoundNo Status Records FoundNo Status Records Found INFORMATION SOURCE (unrecogn ized section and content) DATE CREATED AUTHOR 03/16/2022 [facility] DATE CREATED AUTHOR AUTHOR'S ORGANIZ ATION 11/18/2023 [facility] DATE CREATED AUTHOR AUTHOR'S ORGANIZ ATION 09/04/2024 [facility] DATE CREATED AUTHOR AUTHOR'S ORGANIZ ATION 10/02/2024 [facility] DATE CREATED AUTHOR AUTHOR'S ORGANIZ ATION 10/15/2024 [facility] DATE CREATED AUTHOR AUTHOR'S ORGANIZ ATION 01/05/2025 [facility] DATE CREATED AUTHOR AUTHOR'S ORGANIZ ATION 02/24/2025 [facility] EPIC DATE CREATED AUTHOR AUTHOR'S ORGANIZ ATION 02/25/2025 [facility] Goals (unrecognized section and content) Goals [...] BE BASED ON THE PRIMARY CLINICAL RECORDS. [employer] provides no warranty or guarantee of the accuracy or completeness of information in this document.
--- OUTSIDE RECORDS SUMMARY | 2025-03-02 05:04 | XMS_ITS | Encounter Summary ---
Author Organization [facility] Address [address] [place] [address] Care Team Providers Care Supervisor Pipeline Maintenance Name Role Phone Larisa Whalen MD Unavailable Larisa Whalen MD Primary Care Provider [phone] Encounter Details Date Type Department Care Team (Late Contact Info) Description 01/05/2024 Abstract [facility] 112 [facility] 110 [place] [address] Larisa Whalen MD 112 [facility] 110 [place] [address] Social History Tobacco Use Types Packs/Day Years [...] PT [address] [place] [address] Fabricio Francois PTA 03/06/2025 3:30 PM EDT Office Visit [facility] [address] [facility] [address] [place] [address] Larisa Whalen MD [address] [place] [address] 03/08/2025 10:30 AM EDT Treatment [facility] PT [address] [place] [address] Fabricio Francois, COUNCILLOR [employer] 03/12/2025 10:30 AM EDT Treatment [facility] PT [address] [place] [address] Charly Hannah, COUNCILLOR [employer] 03/15/2025 11:30 AM EDT Treatment [facility] PT [address] [place] [address] Charly Hannah, COUNCILLOR [employer] 03/20/2025 1:00 PM EDT Treatment [facility] PT [address] [place] [address] Fabricio Francois, COUNCILLOR [employer] documented as of this encounter Visit Diagnoses Not on filedocumented in this encounter Care Teams Supervisor Pipeline Maintenance Relationship Specialty Start Date End Date Larisa Whalen MD [address] [place] [address] PCP - ACO Reach 01/14/23 Larisa Whalen MD [address] [place] [address] PCP - General Family Medicine 02/25/23 documented as of this encounter
--- OUTSIDE RECORDS SUMMARY | 2025-03-02 05:04 | XMS_ITS | Encounter Summary ---
Author Organization [facility] Address [address] [place] [address] Phone Care Team Providers Care Hydraulic Chair Assembler Name Role Phone Unavailable Primary Care Provider Unavailabl e Encounter Details Date Type Department Care Team (Late st Contact Info) Description 10/07/2023 Lab Requisition [facility] [address] [facility] [address] [place] [id number] Goyo Valladares MD PhD [address] [place] [address] [address], [facility] [address] [place], [place] [id number] Disorder of the skin and subcutaneous tissue, unspecified Social History Tobacco Use Types Packs/Day Years Used Date Smoking Tobacco: Never Assessed Sex and Gender Information Value Date Recorded Sex Assigned at Not on file Legal Sex Male 2:23 PM EST Gender Identity Not on file Sexual Orientation Not on file documented as of this encounter Plan of Treatment Not on file documented as of this encounter Procedures Procedure Name Priority Date/Time Associated Diagnosis Comments DERMPATH CONSULT Routine 10/07/2023 12:1 3 PM EST Disorder of the skin and subcutaneous tissue, unspecified documented in this encounter Results * Derm Consult (10/07/2023 12:13 PM EST) Case Report Dermatopathology Report Case: [id number] Authorizing Provider: Goyo Valladares MD PhD Collected: 10/07/2023 Ordering Location: [facility] Received: 10/07/[address] [place] [address] Pathologist: Daphney Ho MD Specimen: OUTSIDE BLOCK(S)/SLIDE(S), 3 SLIDES, [facility] #[id number] (BX: 09/27/2023) 4 3:48 PM EST [facility] FINAL DIAGNOSIS 3 SLIDES, [facility] #[id number] (BX: 09/27/2023) SKIN, RIGHT FOREHEAD, SHAVE BIOPSY: [...] Electronically signed out by Daphney Ho MD 4 3:48 PM EST [facility] at 1548 EST Clinical History 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 4.0X2.2CM PREV PATH# [id number], [id number] IRREGULAR PIGMENTED PAPULE. 4 3:48 PM EST [facility] Specimen Description A. OUTSIDE BLOCK(S)/SLIDE(S). Received for consultation from [facility] are three slides labeled [id number] (BX: 09/27/2023) along with the corresponding pathology report. 4 3:48 PM EST [facility] Outside Materials (OUTSIDE BLOCK(S)/SLIDE(S) ) 10/07/2023 12:13 PM EST 10/07/2023 12:13 PM EST us Goyo Valladares MD PhD LAB PATHOLOGY ORDERABLES Final Result [facility] [id number] [place] [address] documented in this encounter Visit Diagnoses Diagnosis Disorder of the skin and subcutaneous tissue, unspecified documented in this encounter
--- OUTSIDE RECORDS SUMMARY | 2025-03-02 05:04 | XMS_ITS | Encounter Summary ---
Author Organization [facility] Address [address] [facility] [place] [address] Care Team Providers Care Weigher And Crusher Name Role Phone Larisa Whalen MD Unavailable Larisa Whalen MD Primary Care Provider [phone] Encounter Details Date Type Department Care Team (Late Contact Info) Description 08/17/2024 Abstract [facility] [address] [facility] [address] [place] [address] Larisa Whalen MD [address] [place] [address] Social History Tobacco Use Types Packs/Day Years [...] CI PT [address] [place] [address] Fabricio Francois PTA 03/06/2025 3:30 PM EDT Office Visit [facility] [address] [place] [address] Larisa Whalen MD [address] [place] [address] 03/08/2025 10:30 AM EDT Treatment [facility] [address] [place] [address] Fabricio Francois, ELECTRONIC SYSTEMS TECHNICIAN 03/12/2025 10:30 AM EDT Treatment [facility] PT [address] [place] [address] Camden Charly, ELECTRONIC SYSTEMS TECHNICIAN 03/15/2025 11:30 AM EDT Treatment [facility] PT [address] [place] [address] Charly Hannah, ELECTRONIC SYSTEMS TECHNICIAN 03/20/2025 1:00 PM EDT Treatment [facility] [address] [facility] [address] [place] [address] Fabricio Francois, ELECTRONIC SYSTEMS TECHNICIAN documented as of this encounter Visit Diagnoses Not on filedocumented in this encounter Care Teams Weigher And Crusher Relationship Specialty Start Date End Date Larisa Whalen MD [address] [place] [address] PCP - ACO Reach 01/14/23 Larisa Whalen MD [address] [place] [address] PCP - General Family Medicine 02/25/23 documented as of this encounter
--- OUTSIDE RECORDS SUMMARY | 2025-03-02 05:04 | XMS_ITS | Encounter Summary ---
Author Organization [facility] Address [address] [place] [address] Care Team Providers Care Certified Legal Investigator Name Role Phone Larisa Whalen MD Unavailable Larisa Whalen MD Primary Care Provider [phone] Encounter Details Date Type Department Care Team (Late Contact Info) Description 03/20/2024 Abstract [facility] 112 [facility] 110 [place] [address] Larisa Whalen MD 112 [facility] 110 [place] [address] Social History Tobacco Use Types Packs/Day Years [...] CI PT [address] [place] [address] Fabricio Francois PTA 03/06/2025 3:30 PM EDT Office Visit [facility] [address] [facility] [address] [place] [address] Larisa Whalen MD [address] [place] [address] 03/08/2025 10:30 AM EDT Treatment [facility] PT [address] [place] [address] Fabricio Francois, SEMICONDUCTOR DIES LOADER 03/12/2025 10:30 AM EDT Treatment [facility] PT [address] [place] [address] Charly Hannah, SEMICONDUCTOR DIES LOADER 03/15/2025 11:30 AM EDT Treatment [facility] PT [address] [place] [address] Charly Hannah, SEMICONDUCTOR DIES LOADER 03/20/2025 1:00 PM EDT Treatment [facility] [address] [place] [address] Fabricio Francois, SEMICONDUCTOR DIES LOADER documented as of this encounter Visit Diagnoses Not on filedocumented in this encounter Care Teams Certified Legal Investigator Relationship Specialty Start Date End Date Larisa Whalen MD [address] [place] [address] PCP - ACO Reach 01/14/23 Larisa Whalen MD [address] [place] [address] PCP - General Family Medicine 02/25/23 documented as of this encounter
[2025-03-02 05:14] VITALS: BP 137/77; PULSE 66; TEMP 36.4; O2SAT 97; BMI 28.8
--- NOTE | 2025-03-02 05:52 | ED_ITS ---
HPI HPI - Neck Pain/Injury General Chief Complaint: Neck Pain/Injury Stated Complaint: NECK HURTING Time Seen by Provider: 03/02/25 05:33 Source: patient Mode of arrival: walk-in Limitations: no limitations History of Present Illness HPI Narrative: right posterior neck pain for 4 days. States he has had this twice before. Seen by PT and yesterday by chiropractor and now the pain is worse. Able to turn his head some to the left and finds the most comfortable position with his head to the left. Not able to turn to the right due to pain. No extremity numbness or weakness. No injury. No headache or fever Related Data Home Medications ?Medication ?Instructions ?Recorded ?Confirmed atorvastatin 20 mg tablet 20 mg PO DAILY 08/11/2307/24 sitagliptin phosphate 100 mg 100 mg PO DAILY 08/11/23 01/12/24 tablet (Januvia) metformin 500 mg tablet mg 01/12/24 Previous Rx's ?Medication ?Instructions ?Recorded benzonatate 100 mg capsule 100 mg PO TID PRN cough #21 caps 08/11/23 mlxdadoppaqtcly-tavveftafibfowt-LZ 10 ml PO Q6H PRN co ld symptoms 08/11/23 2 mg-30 mg-10 mg/5 mL oral syrup #200 mL (Bromfed DM) prednisone 50 mg tablet 50 mg PO DAILY 5 days #5 tab s 08/11/23 naproxen 500 mg tablet 500 mg PO Q12H PRN pain #14 tabs 01/12/24 tramadol 50 mg tablet 50 mg PO Q4H PRN pain 3 days #15 01/12/24 tabs Allergies Allergy/AdvReac Type Severity Reaction Status Date / Time No Known Drug Allergies Allergy Verified 03/02/25 05:23 Opioid HPI Opioid Management Most Recent Opioid Data: Last Pain Scale 9 Today, 05:32 Review of Systems ROS Status of ROS 10 or more systems reviewed and unremark able except as noted in history and below PFSH PFSH Social History Little interest or pleasure in doing things: not at all Feeling down, depressed, or hopeless: not at all Exam Constitutional Vital Signs, click to edit/add: Last Vital Signs Temp 97.5 F L 03/02/25 05:14 Pulse 66 03/02/25 05:14 Resp 16 03/02/25 05:14 BP 137/77 03/02/25 05:14 Pulse Ox 97 03/02/25 05:14 O2 Del Method Room Air 03/02/25 05:14 Common normals: no apparent distress, average body habitus, oriented x3, no limitations, healthy appearing, alert and well nourished [facility] Common normals: normocephalic and head/scalp atraumatic Neck & C-Spine Other: head tilted down to the left. limited ROM, carolyn turning to the right, because of pain Respiratory Common normals: normal respiratory effort, no retractions, no use of accessory muscles and clear to auscultation bilaterally Cardio Common normals: regular rate, regular rhythm, S1 normal heart sound and S2 normal heart sound GI Common normals: Normal to inspection, nondistended, normoactive bowel sounds present, soft to palpation and non-tender Extremity Common normals: normal to inspection and full ROM Neuro Common normals: oriented x3, CN's II-XII intact bilaterally and moves all extremities Psych Appearance: grossly normal Course Vital Signs Vital signs: Vital Signs Temperature 97.5 F L 03/02/25 05:14 Pulse Rate 66 03/02/25 05:14 Respiratory Rate 16 03/02/25 05:14 Blood Pressure 137/77 03/02/25 05:14 Pulse Oximetry 97 03/02/25 05:14 Oxygen Delivery Method Room Air 03/02/25 05:14 Temperature 97.5 F L 03/02/25 05:14 Pulse Rate 66 03/02/25 05:14 Respiratory Rate 16 03/02/25 05:14 Blood Pressure 137/77 03/02/25 05:14 Pulse Oximetry 97 03/02/25 05:14 Oxygen Delivery Method Room Air 03/02/25 05:14 MDM - Neck Pain/Injury MDM Narrative Medical decision making narrative: patient presents with acute torticollis ongoing for 4 days. manipulated by chiropractor without improvement. labs, IV and meds ordered. care transferred to oncoming physician at change of shift Discharge Plan Discharge Patient Disposition: Still a Patient
[2025-03-02] MEDS: DIAZEPAM 10 MG/2 ML SYRINGE 5 MG IV (06:44)
[2025-03-02] MEDS: KETOROLAC TROMETHAMINE 30 MG/ML VIAL IVP (06:44)
[2025-03-02] MEDS: METHYLPREDNISOLONE SOD SUCC PF 125 MG/2 ML VIAL IVP (06:44)
[2025-03-02 06:56] LABS: Hematocrit 39.8 % (42.0-54.0); Hemoglobin 13.4 g/dL (14.0-18.0); Immature Granulocytes Abs Auto 0.07 10^3/uL (0.00-0.03); Immature Granulocytes Pct Auto 0.8 % (0.0-0.5); Lymphocytes Absolute Auto 0.9 10^3/uL (1.2-3.8); Mean Corpuscular HGB Conc 33.7 g/dL (29.9-35.2); Mean Corpuscular Hemoglobin 30.3 pg (25.9-34.0); Mean Corpuscular Volume 90.0 fL (80.0-94.0); Platelet Count 162 10^3/uL (150-450); Red Blood Count 4.42 10^6/uL (4.70-6.10); White Blood Count 9.1 10^3/uL (4.0-11.0)
[2025-03-02 07:02] LABS: Anion Gap 13.6; Blood Urea Nitrogen 17.0 mg/dL (7.0-18.0); Calcium 8.8 mg/dL (8.5-10.1); Carbon Dioxide 26.7 mmol/L (21.0-32.0); Chloride 107 mmol/L (98-107); Estimated GFR (African America >60 (>=60 mL/min/1.73m^2); Estimated GFR (Non-African Ame >60 (>=60 mL/min/1.73m^2); Glucose 171 mg/dL (74-106); Potassium 4.3 mmol/L (3.5-5.1); Sodium 143 mmol/L (136-145)
--- NOTE | 2025-03-02 07:18 | CT_ITS ---
The [address] [address] Patient Name: ROCIO PANG [facility][id number] date: 1945 Sex: M Assigned Patient Location: ER Current Patient Location: Accession/Order Number: [id number] Exam Date: 03/02/2025 08:06 Report Date: 03/02/2025 08:15 At the request of: SHEILA LINARES MD Procedure: CT cervical spine wo con CT CERVICAL SPINE WITHOUT CONTRAST WITH 3D RECONSTRUCTIONS: CLINICAL HISTORY: Right neck pain and radiation down the arm. No reported injury. COMPARISON: 03/11/2022 TECHNIQUE: Spiral axial unenhanced images were obtained through the cervical spine. Sagittal, coronal and 3D volume-rendered reconstructions were also reviewed. This CT exam was performed using one or more following dose reduction techniques: Automated exposure control, adjustment of the mA and/or kV according to patient size, or use of iterative reconstruction technique. FINDINGS: Alignment is maintained in the sagittal plane. No acute compression fractures are identified. There is mild disc space narrowing at C5-6 and slightly greater at C6-7. Endplate spurring is present, greatest at those levels. There is continued associated mild to moderate thecal sac effacement and foraminal encroachment at C5-6, greater on the right. There is moderate thecal sac effacement at C6-7, asymmetric on the left. There is also bilateral foraminal encroachment at that site. There is additional slight thecal sac effacement at C3-4 and C4-5 as well as foraminal encroachment, mild to moderate on the right and moderate to severe on the left at C3-4. There is also mild facet disease. The atlantoaxial relationship is maintained. Mild pannus is again seen. No prevertebral soft tissue swelling is noted. The upper imaged lungs show no contributory findings. CT/CT cervical spine wo con IMPRESSION: DEGENERATIVE CHANGES, SIMILAR TO THE PRIOR. NO ACUTE BONY FINDINGS. Impression dictated by: Danya Lovelace M.D. 03/02/2025 8:15 AM Dictation Location: [place] [address] Electronically authenticated by: [id number] Y Date: 03/02/2025 08:15
== END 2025-03-02 08:49 | disposition home or self-care (01) ==
PROVIDERS: Emergency Provider Internal Medicine; PCP Family Medicine
DX: M43.6 Torticollis (principal); M54.2 Cervicalgia
CPT/HCPCS: 36415; 72125; 80048; 85025; 86140; 96374; 96375; 99285; J1885; J2919; J3360

== ENCOUNTER 2025-03-07 09:20 | Outpatient (OUT) | payer MEDICARE, OTHER, SELFPAY ==
--- OUTSIDE RECORDS SUMMARY | 2025-02-22 10:00 | XMS_ITS | Encounter Summary ---
Author Organization [facility] Address [address] [place] [address] Care Team Providers Care Interior Design Program Chair Name Role Phone Larisa Whalen MD Unavailable Larisa Whalen MD Primary Care Provider [phone] Reason for Visit * Rehabilitation - Outpatient (Routine) - Authorized Specialty Diagnoses / Procedures Referred By La case Referred To Contact Physical Therapy Diagnoses Neck pain Procedures MD OFFICE/OUTPATIENT NEW HIGH MDM 60 MINUTES Danya Chowdhury, PA [address] [facility] [address] [place] [address] Phone: tel: fax: Wilbert Joseph, PT [address] [facility] [address] [place] [address] Phone: tel: fax: Referral ID Status Reason Start Date Expiration Date Visits Requested Visits Authorized [id number] Authorized Specialty Services Required 02/13/2025 08/22/2025 10 10 Encounter Details Date Type Department Care Team (Late st Contact Info) Description 02/22/2025 10:00 AM EDT Evaluation [facility] [address] [facility] [address] [place] [address] Wilbert Joseph, PT [address] [facility] [address] [place] [address] Pain, neck (Primary Dx); Cervical paraspinal muscle [...] right UE. Difficulty turning his head. 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 Having increase pain while lifting objects [...] to be instructed in home exercise program. Skilled Nursing Goals: To be met in 10 weeks [...] Treatment [facility] [address] [address] Fabricio Francois, APPLICATION CONSULTANT 03/06/2025 3:30 PM EDT Office Visit [facility] [address] [facility] [address] [place] [address] aLrisa Whalen MD [address] [place] [address] [place] [address] 03/08/2025 10:30 AM EDT Treatment [facility] [address] [facility] [address] [place] [address] Fabricio Francois, APPLICATION CONSULTANT 03/12/2025 10:30 AM EDT Treatment [facility] [address] [facility] [address] [place] [address] Charly Hannah, APPLICATION CONSULTANT 03/15/2025 11:30 AM EDT Treatment [facility] [address] [facility] [address] [place] [address] Charly Hannah, APPLICATION CONSULTANT 03/20/2025 1:00 PM EDT Treatment [facility] [address] [facility] [address] [place] [address] Fabricio Francois, APPLICATION CONSULTANT documented as of this encounter Visit Diagnoses Diagnosis Pain, neck- Primary Cervical paraspinal muscle spasm Spasm of muscle documented in this encounter Care Teams Interior Design Program Chair Relationship Specialty Start Date End Date Larisa Whalen MD [address] [facility] [address] [place] [address] PCP - ACO Reach 01/14/23 Larisa Whalen MD [address] [facility] [address] [place] [address] PCP - General Family Medicine 02/25/23 documented as of this encounter
--- OUTSIDE RECORDS SUMMARY | 2025-02-23 13:59 | XMS_ITS | Continuity of Care Document ---
Author Organization [facility] Address Unknown Care Team Providers Care Hebrew Cantor Name Role Phone Larisa Whalen MD Primary Care Physician Encounter [facility] [id number] Date(s): 02/23/25 - 02/23/[address] [address] Encounter Diagnosis Viral bronchitis(Discharge Diagnosis) - 02/23/25 URI with cough and congestion(Discharge Diagnosis) - 02/23/25 Discharge Disposition: Home Attending Physician: Shaun Jung Admitting Physician: Shaun Jung Encounter Type: OP Allergies, Adverse Reactions, Alerts No Known Allergies Assessment and Plan Extracted from: Title:Urgent Care Note Author:Shaun Jung Date:02/23/25 1. URI with cough and congestion J06.9 2. Viral bronchitis J20.8 Orders: Tessalon Perles 100 mg oral capsule, 1 cap(s) ( 100 mg ), Cap, Oral, q8hr, x 10 day(s), PRN: as needed for cough, # 30 cap(s), 0 Refill(s), 03/05/25, Pharmacy: [facility], 1 cap(s) Oral q8hr,x10 day(s),PRN:as needed for cough, 175, cm, 02/23/25 11:32:00 EDT, Height, 87.09,..., (Ordered) fluticasone 50 mcg/inh nasal spray, 1 spray(s), Nostril-Both, BID, x 7 day(s), # 16 gm, 0 Refill(s), 03/02/25, Pharmacy: [facility], 1 spray(s) Nostril-Both BID,x7 day(s), 175, cm, 02/23/25 11:32:00 EDT, Height, 87.09, kg, 02/23/25 11:38:00 EDT, Weight Dosing, (Ordered) Mucinex 600 mg oral tablet, extended release, 1 tab(s) ( 600 mg ), Oral, q12hr, x 10 day(s), PRN: congestion, # 20 tab(s), 0 Refill(s), 03/05/25, Pharmacy: [facility], 1 tab(s) Oral q12hr,x10 day(s),PRN:congestion, 175, cm, 02/23/25 11:32:00 EDT, Height, 87.09, kg, 02/23/25 11:38:00..., (Ordered) Discharge Patient, 02/23/25 13:47:00 EDT, (Ordered) Medications fluticasone 50 mcg/inh nasal spray 1 spray(s), Nostril-Both, BID, x 7 day(s), # 16 gm, 0 Refill(s), 03/02/25 12:12:00 PM CDT, Pharmacy:[facility], 1 spray(s) Nostril-Both BID,x7 day(s), 175, cm, 02/23/25 11:32:00 EDT, Height, 87.09, kg, 02/23/25 11:38:00 EDT, Weight Dosing Start Date: 02/23/25 Stop Date: 03/02/25 Status: Ordered Quantity: 16.0 Unit: g Repeat number: 1 Januvia 100 mg oral tablet 1 tab(s) ( 100 mg ), Oral, Daily Start Date: 02/23/25 Status: Ordered Repeat number: 1 metFORMIN 500 mg oral tablet 1 tab(s) ( 500 mg ), Oral, Daily Start Date: 02/23/25 Status: Ordered Repeat number: 1 Mucinex 600 mg oral tablet, extended release 1 tab(s) ( 600 mg ), Oral, q12hr, x 10 day(s), PRN: congestion, # 20 tab(s), 0 Refill(s), 03/05/25 12:11:00 PM CDT, Pharmacy: [facility], 1 tab(s) Oral q12hr,x10 day(s),PRN:congestion, 175, cm, 02/23/25 11:32:00 EDT, Height, 87.09, kg, 02/23/25 11:38:00 EDT, Weight Dosing Start Date: 02/23/25 Stop Date: 03/05/25 Status: Ordered Quantity: 20.0 Unit: tab(s) Repeat number: 1 Potassium Chloride (Nll-Ytws-Rza M20) 20 mEq oral tablet, extended release 1 tab(s) ( 20 mEq ), ER Tablet, Oral, Daily Start Date: 02/23/25 Status: Ordered Repeat number: 1 tamsulosin 0.4 mg oral capsule 1 cap(s) ( 0.4 mg ), Oral, Daily Start Date: 02/23/25 Status: Ordered Repeat number: 1 Tessalon Perles 100 mg oral capsule 1 cap(s) ( 100 mg ), Cap, Oral, q8hr, x 10 day(s), PRN: as needed for cough, # 30 cap(s), 0 Refill(s), 03/05/25 12:12:00 PM CDT, Pharmacy: [facility], 1 cap(s) Oral q8hr,x10 day(s),PRN:as needed for cough, 175, cm, 02/23/25 11:32:00 EDT, Height, 87.09, kg, 02/23/25 11:38:00 EDT, WeightDosing Start Date: 02/23/25 Stop Date: 03/05/25 Status: Ordered Quantity: 30.0 Unit: cap(s) Repeat number: 1 Problem List Condition Confirmation Course Effective Dates Status Health [facility] Informant None Confirmed Active Social History Social History Type Response Tobacco Never tobacco user T obacco Use:. Sex Male Sex Representation Male (finding) Hospital Discharge Instructions Patient Education 02/23/2025 12:51:35 Upper Respiratory Infection, Adult Upper Respiratory Infection, Adult An upper respiratory infection (URI) is a common viral infection of the nose, throat, and upper airpassages that lead to the lungs. The most common type of URI is the common cold. URIs usually get better on their own, without medical treatment. What are the causes? A URI is caused by a virus. You may catch a virus by: • Breathing in droplets from an infected person's cough or sneeze. • Touching something that has been exposed to the virus (is contaminated) and then touching your mouth, nose, or eyes. What increases the risk? You are more likely to get a URI if: • You are very young or very old. • You have close contact with others, such as at work, school, or a health care facility. • You smoke. • You have long-term (chronic) heart or lung disease. • You have a weakened disease-fighting system (immune system). • You have nasal allergies or asthma. • You are experiencing a lot of stress. • You have poor nutrition. What are the signs or symptoms? A URI usually involves some of the following symptoms: • Runny or stuffy (congested) nose. • Cough. • Sneezing. • Sore throat. • Headache. • Fatigue. • Fever. • Loss of appetite. • Pain in your forehead, behind your eyes, and over your cheekbones (sinus pain). • Muscle aches. • Redness or irritation of the eyes. • Pressure in the ears or face. How is this diagnosed? This condition may be diagnosed based on your medical history and symptoms, and a physical exam. Your health care provider may use a swab to take a mucus sample from your nose (nasal swab). This sample can be tested to determine what virus is causing the illness. How is this treated? URIs usually get better on their own within 7–10 days. Medicines cannot cure URIs, but your health care provider may recommend certain medicines to help relieve symptoms, such as: • Dnpo-wzv-umvleei cold medicines. • Cough suppressants. Coughing is a type of defense against infection that helps to clear the respiratory system, so take these medicines only as recommended by your health care provider. • Fever-reducing medicines. Follow these instructions at home: Activity • Rest as needed. • If you have a fever, stay home from work or school until your fever is gone or until your health care provider says your URI cannot spread to other people (is no longer contagious). Your health care provider may have you wear a face mask to prevent your infection from spreading. Relieving symptoms • Gargle with a mixture of salt and water 3–4 times a day or as needed. To make salt water, completely dissolve ½–1 tsp (3–6 g) of salt in 1 cup (237 mL) of warm water. • Use a cool-mist humidifier to add moisture to the air. This can help you breathe more easily. Eating and drinking • Drink enough fluid to keep your urine pale yellow. • Eat soups and other clear broths. General instructions • Take wotl-xwt-ouexixy and prescription medicines only as told by your health care provider. These include cold medicines, fever reducers, and cough suppressants. • Do not use any products that contain nicotine or tobacco. These products include cigarettes, chewing tobacco, and vaping devices, such as e-cigarettes. If you need help quitting, ask your health care provider. • Stay away from secondhand smoke. • Stay up to date on all immunizations, including the yearly (annual) flu vaccine. • Keep all follow-up visits. This is important. How to prevent the spread of infection to others URIs can be contagious. To prevent the infection from spreading: • Wash your hands with soap and water for at least 20 seconds. If soap and water are not available, use hand compensation and benefits advisor. • Avoid touching your mouth, face, eyes, or nose. • Cough or sneeze into a tissue or your sleeve or elbow instead of into your hand or into the air. Contact a health care provider if: • You are getting worse instead of better. • You have a fever or chills. • Your mucus is brown or red. • You have yellow or brown discharge coming from your nose. • You have pain in your face, especially when you bend forward. • You have swollen neck glands. • You have pain while swallowing. • You have white areas in the back of your throat. Get help right away if: • You have shortness of breath that gets worse. • You have severe or persistent: ◦ Headache. ◦ Ear pain. ◦ Sinus pain. ◦ Chest pain. • You have chronic lung disease along with any of the following: ◦ Making high-pitched whistling sounds when you breathe, most often when you breathe out (wheezing). ◦ Prolonged cough (more than 14 days). ◦ Coughing up blood. ◦ A change in your usual mucus. • You have a stiff neck. • You have changes in your: ◦ Vision. ◦ Hearing. ◦ Thinking. ◦ Mood. These symptoms may be an emergency. Get help right away. Call 911. • Do not wait to see if the symptoms will go away. • Do not drive yourself to the hospital. Summary • An upper respiratory infection (URI) is a common infection of the nose, throat, and upper air passages that lead to the lungs. • A URI is caused by a virus. • URIs usually get better on their own within 7–10 days. • Medicines cannot cure URIs, but your health care provider may recommend certain medicines to help relieve symptoms. This information is not intended to replace advice given to you by your health care provider. Make sure you discuss any questions you have with your health care provider. Document Revised: 03/11/2022 Document Reviewed: 03/11/2022 [employer] Patient Education © 2023 [employer]. Follow Up Care 02/23/2025 10:24:46 With:Marlee PADILLA, Larisa Prescott MD Address: [address] [place] [address] When:3 to 5 days Urgent care center Note * Shaun Jung: PERFORM Event Display: Urgent Care Note Authored Date: [id number] ROCIO PANG :1945 Age:79 years Sex:MALE Registration Date:02/23/2025 Primary Care Physician: Marlee PADILLA, Larisa Prescott MD Chief Complaint 3 days sinus congestion and constant drip History of Present Illness Zak is a pleasant, 79-year-old, non-smoking male who states 3 days ago he began to get a runny nose, tickle in the back of his throat, and a little cough. He states the cough has progressed to an infrequent, deep chest cough, slightly raspy. He has not had any shortness of breathor wheezing. Patient states his nose has been running clear, dripping constantly and he has used approximately half a box of tissues. He states this has been associate with some body aches and chills. He has decreased energy and is just not feeling that great. He has not had known exposure to others with illness, no known exposure to COVID or influenza. He has not taken anything over-the- counter to help with his symptoms. He denies ear pain, throat pain, rash, stiff neck, abdominal pain, nausea, vomiting. Patient has no drug allergies. Review of Systems Constitutional: [No fevers, chills, sweats] Eye: [No recent visual problems] ENT: [No ear pain. Clear runny nose, mild nasal congestion. Denies a sore throat] Respiratory: [No shortness of breath. Reports an infrequent cough] Cardiovascular: [No Chest pain, palpitations, syncope] Gastrointestinal: [No nausea, vomiting, diarrhea] Genitourinary: [No hematuria] Musculoskeletal: [No back pain, neck pain, joint pain, muscle pain, decreased range of motion] Physical Exam Vitals & Measurements T: 36.8 °C (Temporal Artery) HR: 68 (Peripheral) RR: 16 BP: 126/84 HT: 175 cm WT: 87.09 kg BMI: 28.44 BSA: 2.06 General: [Alert and oriented, well nourished, no acute distress]. Head: [Normocephalic, atraumatic] Neck: [Supple, full ROM, no meningeal signs, no anterior cervical lymphadenopathy] Eyes: [PERRL, EOMI, normal conjunctiva, no scleral icterus]. Ears: [Clear and shiny tympanic membranes, no cerumen obstruction] Nose: [Patent, mild congestion, bilateral nasal turbinates softly swollen, clear drainage, mild frontal and maxillary sinus tenderness] Throat: [Tongue moist, posterior pharynx clear, no exudate, no lesions], Lungs: [Clear to auscultation bilaterally. No wheezing, rales, rhonchi. Speaks in full sentences,non-labored respiration]. Heart: [Normal rate, regular rhythm, no murmur. No lower extremity edema]. Abdomen: [Soft, nontender, no splenomegaly] Musculoskeletal: [Normal range of motion and strength. Calves soft, nontender, negative Amy's Sign]. Skin: [No rashes, wound, normal skin turgor] Medical Decision Making Discharge diagnosis of viral upper respiratory tract infection with cough. COVID and flu negative. Patient declines chest x-ray. At this time afebrile the lungs are clear. This is an appropriate decision. We discussed if he is not improving he can return at any time for chest x-ray. Begin Mucinex Tessalon Flonase. Return if worse Assessment/Plan 1. URI with cough and congestion J06.9 2. Viral bronchitis J20.8 Orders: Tessalon Perles 100 mg oral capsule, 1 cap(s) ( 100 mg ), Cap, Oral, q8hr, x 10 day(s), PRN: as needed for cough, # 30 cap(s), 0 Refill(s), 03/05/25, Pharmacy: [facility], 1 cap(s) Gcfyx5zc,x10 day(s),PRN:as needed for cough, 175, cm, 02/23/25 11:32:00 EDT, Height, 87.09,..., (Ordered) fluticasone 50 mcg/inh nasal spray, 1 spray(s), Nostril-Both, BID, x 7 day(s), # 16 gm, 0 Refill(s), 03/02/25, Pharmacy: [facility], 1 spray(s) Nostril-Both BID,x7 day(s), 175, cm, 02/23/25 11:32:00 EDT, Height, 87.09, kg, 02/23/25 11:38:00 EDT, Weight Dosing, (Ordered) Mucinex 600 mg oral tablet, extended release, 1 tab(s) ( 600 mg ), Oral, q12hr, x 10 day(s), PRN: congestion, # 20 tab(s), 0 Refill(s), 03/05/25, Pharmacy: [facility], 1 tab(s) Oral q12hr,x10 day(s),PRN:congestion, 175, cm, 02/23/25 11:32:00 EDT, Height, 87.09, kg, 02/23/25 11:38:00..., (Ordered) Discharge Patient, 02/23/25 13:47:00 EDT, (Ordered) Patient Instructions Diagnosis today of viral upper respiratory illness, viral bronchitis. Covid/ Influenza A/B was negative. CXR was declined. Vitals normal, lungs clear. Begin Mucinex 600mg BID x 10 days Begin Tessalon perrles Begin Flonase nasal spray. Begin fflk-kcp-aixzekw ibuprofen every 8 hours which will help for the pain and discomfort if needed. You may also use the counter Tylenol every 4-6 hours. Please return for medical care if fever over 101.5, progressive symptoms, shortness breath, nausea, vomiting, diarrhea. Problem List/Past Medical History Ongoing None Historical No qualifying data Medications Inpatient No active inpatient medications Home fluticasone 50 mcg/inh nasal spray, 1 spray(s), Nostril-Both, BID Januvia 100 mg oral tablet, 100 mg= 1 tab(s), Oral, Daily metFORMIN 500 mg oral tablet, 500 mg= 1 tab(s), Oral, Daily Mucinex 600 mg oral tablet, extended release, 600 mg= 1 tab(s), Oral, q12hr, PRN Potassium Chloride (Zdn-Ryjt-Flp M20) 20 mEq oral tablet, extended release, 20 mEq= 1 tab(s), Oral,Daily tamsulosin 0.4 mg oral capsule, 0.4 mg= 1 cap(s), Oral, Daily Tessalon Perles 100 mg oral capsule, 100 mg= 1 cap(s), Oral, q8hr, PRN Allergies No known allergies Social History Electronic Cigarette/Vaping Electronic Cigarette Use: Never. Tobacco Never tobacco user Tobacco Use:. Follow Up Instructions With When Contact Information Marlee PADILLA, Larisa Prescott MD Within 3 to [address] [place] [phone] Additional Instructions: Patient Education Upper Respiratory Infection, Adult [Electronically Signed on: 02/23/2025 13:52 EDT] Shaun Jung [Verified on: 02/23/2025 13:52 EDT] Shaun Jung Patient Care team information Care Team Personnel Name: Larisa Whalen MD, MD Position: [facility] No Access Member Role: Primary Care Physician Address: [address] [place] [address] Telecom: Care Team Related Persons Name: DARIO VALLADARES Insurance Providers Guarantor name: [employer] Plan Information #: 1 Payer: MEDICARE Payer Identifier: NA Member Number: [id number] Group Number: SHIRLEY Subscriber Identifier: [id number] Relationship to Subscriber: self Coverage Type: MEDICARE Coverage Verification Date: 25 Telecom: [phone] Address: [address] Health Plan Information #: 2 Payer: MISC MEDICARE MC Payer Identifier: NA Member Number: [id number] Group Number: SHIRLEY Subscriber Identifier: [id number] Relationship to Subscriber: self Coverage Type: MEDICARE Coverage Verification Date: SHIRLEY Telecom: 727 Address: [facility] [id number] [place] [id number]
--- OUTSIDE RECORDS SUMMARY | 2025-02-28 11:00 | XMS_ITS | Encounter Summary ---
Author Organization [facility] Address [address] [place] [address] Care Team Providers Care Basketballs And Footballs Reverser Name Role Phone Larisa Whalen MD Unavailable Larisa Whalen MD Primary Care Provider Reason for Visit * Rehabilitation - Outpatient (Routine) - Authorized Specialty Diagnoses / Procedures Referred By La case Referred To Contact Physical Therapy Diagnoses Neck pain Procedures [place] OFFICE/OUTPATIENT [facility] MDM 60 MINUTES Danya Chowdhury, PA [address] [facility] [address] [place] [address] Phone: tel: fax: Wilbert Joseph, PT [address] [place] [address] Phone: tel: fax: Referral ID Status Reason Start Date Expiration Date Visits Requested Visits Authorized [id number] Authorized Specialty Services Required 02/13/2025 08/22/2025 10 10 Encounter Details Date Type Department Care Team (Late st Contact Info) Description 02/28/2025 11:00 AM EDT Treatment [facility] [address] [facility] [address] [place] [address] Fabricio Francois PTA Pain, neck (Primary Dx); [...] this encounter Progress Notes * Fabricio Francois, PARTS COORDINATOR - 02/28/2025 11:00 AM EDT Images from [...] right UE. Difficulty turning his head. 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 Having increase pain while lifting objects overhead. Precautions: universal Subjective Neck is sore this AM along Left side. Pt reported trying to potato picker a rock and felt a twinge [...] to be instructed in home exercise program. Centrifuge Separator Operator Goals: To be met in 10 weeks [...] [address] [place] [address] Fabricio Francois, PARTS COORDINATOR 03/06/2025 3:30 PM EDT Office Visit [facility] [address] [place] [address] Larisa Whalen MD [address] [place] [address] 03/08/2025 10:30 AM EDT Treatment [facility] PT [address] [place] [address] Fabricio Francois, PARTS COORDINATOR 03/12/2025 10:30 AM EDT Treatment [facility] [address] [place] [address] Charly Hannah, PARTS COORDINATOR 03/15/2025 11:30 AM EDT Treatment [facility] [address] [place] [address] Charly Hannah, PARTS COORDINATOR 03/20/2025 1:00 PM EDT Treatment [facility] [address] [place] [address] Fabricio Francois, PARTS COORDINATOR documented as of this encounter Visit Diagnoses Diagnosis Pain, neck- Primary Cervical paraspinal muscle spasm Spasm of muscle documented in this encounter Care Teams Basketballs And Footballs Reverser Relationship Specialty Start Date End Date Larisa Whalen MD [address] [place] [address] PCP - ACO Reach 01/14/23 Larisa Whalen MD [address] [place] [address] PCP - General Family Medicine 02/25/23 documented as of this encounter
--- OUTSIDE RECORDS SUMMARY | 2025-03-05 10:57 | XMS_ITS | Encounter Summary ---
Author Organization [facility] Address [address] [facility] [place] [address] Care Team Providers Care Air Table Operator Name Role Phone Larisa Whalen MD Unavailable Larisa Whalen MD Primary Care Provider [phone] Encounter Details Date Type Department Care Team (Late Contact Info) Description 09/18/2024 Abstract [facility] [address] [email or web address] [address] [place] [address] Larisa Whalen MD [address] [place] [address] Social History Tobacco Use Types Packs/Day Years [...] CI PT [address] [place] [address] Fabricio Francois PTA 03/06/2025 3:30 PM EDT Office Visit [facility] [address] [place] [address] Larisa Whalen MD [address] [place] [address] 03/08/2025 10:30 AM EDT Treatment [facility] PT [address] [place] [address] Fabricio Francois, FIRER DIESEL LOCOMOTIVE 03/12/2025 10:30 AM EDT Treatment [facility] PT [address] [place] [address] Camden Charly, FIRER DIESEL LOCOMOTIVE 03/15/2025 11:30 AM EDT Treatment [facility] PT [address] [place] [address] Charly Hannah, FIRER DIESEL LOCOMOTIVE 03/20/2025 1:00 PM EDT Treatment [facility] PT [address] [email or web address] [address] [place] [address] Fabricio Francois, FIRER DIESEL LOCOMOTIVE documented as of this encounter Visit Diagnoses Not on filedocumented in this encounter Care Teams Air Table Operator Relationship Specialty Start Date End Date Larisa Whalen MD [address] [place] [address] PCP - ACO Reach 01/14/23 Larisa Whalen MD [address] [place] [address] PCP - General Family Medicine 02/25/23 documented as of this encounter
--- OUTSIDE RECORDS SUMMARY | 2025-03-05 10:57 | XMS_ITS | Encounter Summary ---
Author Organization [facility] Address [address] [facility] [place] [address] Care Team Providers Care Strategic Planner Name Role Phone Larisa Whalen MD Unavailable Larisa Whalen MD Primary Care Provider [phone] Encounter Details Date Type Department Care Team (Late Contact Info) Description 07/08/2023 Orders Only [facility] [address] [place] [address] Larisa Whalen MD [address] [place] [address] Social History Tobacco Use Types Packs/Day Years [...] CI PT [address] [place] [address] Fabricio Francois PTA 03/06/2025 3:30 PM EDT Office Visit [facility] [address] [place] [address] Larisa Whalen MD [address] [place] [address] 03/08/2025 10:30 AM EDT Treatment [facility] [address] [place] [address] Fabricio Francois, SKYLIGHTS ASSEMBLER 03/12/2025 10:30 AM EDT Treatment [facility] PT [address] [place] [address] Charly Hannah, SKYLIGHTS ASSEMBLER 03/15/2025 11:30 AM EDT Treatment [facility] PT [address] [place] [address] Charly Hannah, SKYLIGHTS ASSEMBLER 03/20/2025 1:00 PM EDT Treatment [facility] PT [address] [place] [address] Fabricio Francois, SKYLIGHTS ASSEMBLER documented as of this encounter Procedures Procedure [...] on filedocumented in this encounter Care Teams Strategic Planner Relationship Specialty Start Date End Date Larisa Whalen MD [address] [place] [address] PCP - ACO Reach 01/14/23 Larisa Whalen MD [address] [place] [address] PCP - General Family Medicine 02/25/23 documented as of this encounter
--- OUTSIDE RECORDS SUMMARY | 2025-03-05 10:57 | XMS_ITS | Encounter Summary ---
Author Organization [facility] Address [address] [facility] [place] [address] Care Team Providers Care Curator Name Role Phone Larisa Whalen MD Unavailable Larisa Whalen MD Primary Care Provider [phone] Encounter Details Date Type Department Care Team (Late Contact Info) Description 01/04/2025 Abstract [facility] [address] [facility] [address] [place] [address] Larisa Whalen MD [address] [place] [address] Social History Tobacco Use Types Packs/Day Years [...] CI PT [address] [place] [address] Fabricio Francois PTA 03/06/2025 3:30 PM EDT Office Visit [facility] [address] [place] [address] Larisa Whalen MD [address] [place] [address] 03/08/2025 10:30 AM EDT Treatment [facility] PT [address] [place] [address] Fabricio Francois, MEDICAL BILLING AND CODING SPECIALIST 03/12/2025 10:30 AM EDT Treatment [facility] PT [address] [place] [address] Camden Charly, MEDICAL BILLING AND CODING SPECIALIST 03/15/2025 11:30 AM EDT Treatment [facility] PT [address] [place] [address] Charly Hannah, MEDICAL BILLING AND CODING SPECIALIST 03/20/2025 1:00 PM EDT Treatment [facility] PT [address] [facility] [address] [place] [address] Fabricio Francois, MEDICAL BILLING AND CODING SPECIALIST documented as of this encounter Visit Diagnoses Not on filedocumented in this encounter Care Teams Curator Relationship Specialty Start Date End Date Larisa Whalen MD [address] [place] [address] PCP - ACO Reach 01/14/23 Larisa Whalen MD [address] [place] [address] PCP - General Family Medicine 02/25/23 documented as of this encounter
--- OUTSIDE RECORDS SUMMARY | 2025-03-05 10:57 | XMS_ITS | Encounter Summary ---
Author Organization [facility] Address [address] [facility] [place] [address] Care Team Providers Care Crowning Inspector Name Role Phone Larisa Whalen MD Unavailable Larisa Whalen MD Primary Care Provider [phone] Encounter Details Date Type Department Care Team (Late Contact Info) Description 09/18/2024 External Result Encounter [facility] External Department Unsolicited Larisa Whalen MD [address] [place] [address] Social History Tobacco Use Types Packs/Day Years [...] CI PT [address] [place] [address] Fabricio Francois PTA 03/06/2025 3:30 PM EDT Office Visit [facility] FM [address] [place] [address] Larisa Whalen MD [address] [place] [address] 03/08/2025 10:30 AM EDT Treatment [facility] CI PT [address] [place] [address] Alessandro Fabricio, DEPOT AGENT 03/12/2025 10:30 AM EDT Treatment [facility] CI PT [address] [place] [address] Charly Hannah, DEPOT AGENT 03/15/2025 11:30 AM EDT Treatment [facility] CI PT [address] [place] [address] CamdenRosasCharly, DEPOT AGENT 03/20/2025 1:00 PM EDT Treatment [facility] CI PT [address] [place] [address] Fabricio Francois, DEPOT AGENT documented as of this encounter Procedures Procedure Name Priority Date/Time Associated Diagnosis Comments STRESS TEST WITH MYOCARDIAL PERFUSION 09/18/2024 4:04 PM EST documented in this encounter Results * Stress test with myocardial perfusion (09/18/2024 4:04 PM EST) Anatomical Region Laterality Modality Heart Other 09/18/2024 4:04 PM EST Narrative 09/18/2024 4:08 PM EST [facility] [place] [address] Nuclear Medicine Report Signed Patient: Ritchie Zeng MR#: [id number] : 1945 Acct:[id number] Age/Sex: 78 / M ADM Date: 09/18/24 Loc: [place] Room: Type: [facility] Attending Dr: Larisa Whalen MD Copies to: [...] Irina Ann M.D.09/18/2024 4:06 PM Dictation Location: [place] [address] Transcribed By: [facility] 09/18/24 1606 Dictated By: Irina Ann MD 09/18/24 1604 Signed By: <Electronically signed by Irina Ann MD in OV> 09/18/24 1606 Procedure Note Irina Ann MD - 09/18/2024 [facility] [place] [address] Nuclear Medicine Report Signed Patient: Ritchie Zeng [facility]#: [id number] : 6Acct:[id number] Age/Sex: 78 / MADM Date: 09/18/24 Loc: [place] Room:Type: [facility] Attending Dr: Larisa Whalen MD Copies to: [...] Irina Ann M.D.09/18/2024 4:06 PM Dictation Location: [place] [address] Transcribed By: [facility] 09/18/24 1606 Dictated By: Irina Ann MD 09/18/24 1604 Signed By: <Electronically signed by Irina Ann MD in OV> 09/18/24 1606 Larisa Whalen MD CV STRESS PROCEDURES Final Resul t documented in this encounter Visit Diagnoses Not on filedocumented in this encounter Care Teams Crowning Inspector Relationship Specialty Start Date End Date Larisa Whalen MD [address] [facility] 110 [place] [address] PCP - ACO Reach 01/14/23 Larisa Whalen MD [address] [facility] 110 [place] [address] PCP - General Family Medicine 02/25/23 documented as of this encounter
--- OUTSIDE RECORDS SUMMARY | 2025-03-05 10:57 | XMS_ITS | Encounter Summary ---
Author Organization [facility] Address [address] [facility] [address] Care Team Providers Care Inspection Machine Tender Name Role Phone Larisa Whalen MD Unavailable Larisa Whalen MD Primary Care Provider [phone] Encounter Details Date Type Department Care Team (Late Contact Info) Description 03/01/2023 Abstract [facility] CI FM [address] [facility] 110 [place] [address] Larisa Whalen MD [address] [facility] 110 [place] [address] Social History Tobacco Use Types Packs/Day Years [...] CI PT [address] [place] [address] Fabricio Francois PTA 03/06/2025 3:30 PM EDT Office Visit [facility] FM [address] [place] [address] Larisa Whalen MD [address] [place] [address] 03/08/2025 10:30 AM EDT Treatment [facility] CI PT [address] [place] [address] Fabricio Francois, DONKEY DOCTOR 03/12/2025 10:30 AM EDT Treatment [facility] CI PT [address] [place] [address] Camden Charly, DONKEY DOCTOR 03/15/2025 11:30 AM EDT Treatment [facility] CI PT [address] [place] [address] Charly Hannah, DONKEY DOCTOR 03/20/2025 1:00 PM EDT Treatment [facility] CI PT [address] [place] [address] Fabricio Francois, DONKEY DOCTOR documented as of this encounter Visit Diagnoses Not on filedocumented in this encounter Care Teams Inspection Machine Tender Relationship Specialty Start Date End Date Larisa Whalen MD [address] [place] [address] PCP - ACO Reach 01/14/23 Larisa Whalen MD [address] [place] [address] PCP - General Family Medicine 02/25/23 documented as of this encounter
--- OUTSIDE RECORDS SUMMARY | 2025-03-05 10:57 | XMS_ITS | Encounter Summary ---
Author Organization [facility] Address [address] [facility] [place] [address] Care Team Providers Care Lamps Tester And Inspector Name Role Phone Larisa Whalen MD Unavailable Larisa Whalen MD Primary Care Provider [phone] Encounter Details Date Type Department Care Team (Late st Contact Info) Description 03/03/2023 Abstract [facility] CI PT [address] [facility] 170 [place] [address] Eladio Lau, PT [address] [place] [address] Social History Tobacco Use Types Packs/Day Years [...] PT [address] [place] [address] Fabricio Francois PTA 03/06/2025 3:30 PM EDT Office Visit [facility] FM [address] [place] [address] [place] [address] Larisa Whalen MD [address] [place] [address] 03/08/2025 10:30 AM EDT Treatment [facility] CI PT [address] [place] [address] Fabricio Francois, SPRAY OPERATOR 03/12/2025 10:30 AM EDT Treatment [facility] CI PT [address] [place] [address] hCarly Hannah, SPRAY OPERATOR 03/15/2025 11:30 AM EDT Treatment [facility] CI PT [address] [place] [address] Charly Hannah, SPRAY OPERATOR 03/20/2025 1:00 PM EDT Treatment [facility] CI PT [address] [place] [address] Fabricio Francois, SPRAY OPERATOR documented as of this encounter Visit Diagnoses Not on filedocumented in this encounter Care Teams Lamps Tester And Inspector Relationship Specialty Start Date End Date Larisa Whalen MD [address] [place] [address] PCP - ACO Reach 01/14/23 Larisa Whalen MD [address] [place] [address] PCP - General Family Medicine 02/25/23 documented as of this encounter
--- OUTSIDE RECORDS SUMMARY | 2025-03-05 10:57 | XMS_ITS | Encounter Summary ---
Author Organization [facility] Address [address] [place] [address] Care Team Providers Care Labelling Machine Operator Name Role Phone Larisa Whalen MD Unavailable Larisa Whalen MD Primary Care Provider [phone] Encounter Details Date Type Department Care Team (Late Contact Info) Description 04/02/2023 Orders Only [facility] POD [address] [place] [address] Merrill Curtis DPM [address] [facility] 5 [place] [address] Social History Tobacco Use Types [...] CI PT [address] [place] [address] Fabricio Francois PTA 03/06/2025 3:30 PM EDT Office Visit [facility] FM [address] [place] [address] Larisa Whalen MD [address] [place] [address] 03/08/2025 10:30 AM EDT Treatment [facility] CI PT [address] [place] [address] DanaChristian nullall, CRYSTAL SLICER 03/12/2025 10:30 AM EDT Treatment [facility] CI PT [address] [place] [address] Charly Hannah, CRYSTAL SLICER 03/15/2025 11:30 AM EDT Treatment [facility] CI PT [address] [place] [address] Charly Hannah, CRYSTAL SLICER 03/20/2025 1:00 PM EDT Treatment [facility] CI PT [address] [place] [address] Fabricio Francois, CRYSTAL SLICER documented as of this encounter Procedures Procedure [...] on filedocumented in this encounter Care Teams Labelling Machine Operator Relationship Specialty Start Date End Date Larisa Whalen MD [address] [place] [address] PCP - ACO Reach 01/14/23 Larisa Whalen MD [address] [place] [address] 110 [place] [address] PCP - General Family Medicine 02/25/23 documented as of this encounter
--- OUTSIDE RECORDS SUMMARY | 2025-03-05 10:57 | XMS_ITS | Encounter Summary ---
Author Organization [facility] Address [address] [place] [address] Care Team Providers Care Scaffolder Name Role Phone Larisa Whalen MD Unavailable Larisa Whalen MD Primary Care Provider [phone] Encounter Details Date Type Department Care Team (Late Contact Info) Description 07/08/2023 Abstract [facility] CI FM 112 [facility] 110 [place] [address] Larsia Whalen MD 112 [facility] 110 [place] [address] Social History Tobacco Use Types Packs/Day Years [...] CI PT [address] [place] [address] Fabricio Francois PTA 03/06/2025 3:30 PM EDT Office Visit [facility] FM [address] [facility] 110 [place] [address] Larisa Whalen MD [address] [place] [address] 03/08/2025 10:30 AM EDT Treatment [facility] CI PT [address] [place] [address] Fabricio Francois, ORAL HEALTH THERAPIST 03/12/2025 10:30 AM EDT Treatment [facility] CI PT [address] [place] [address] Charly Hannah, ORAL HEALTH THERAPIST 03/15/2025 11:30 AM EDT Treatment [facility] CI PT [address] [place] [address] Charly Hannah, ORAL HEALTH THERAPIST 03/20/2025 1:00 PM EDT Treatment [facility] CI PT [address] [place] [address] Fabricio Francois, ORAL HEALTH THERAPIST documented as of this encounter Visit Diagnoses Not on filedocumented in this encounter Care Teams Scaffolder Relationship Specialty Start Date End Date Larisa Whalen MD [address] [place] [address] PCP - ACO Reach 01/14/23 Larisa Whalen MD [address] [place] [address] PCP - General Family Medicine 02/25/23 documented as of this encounter
--- OUTSIDE RECORDS SUMMARY | 2025-03-05 10:57 | XMS_ITS | Encounter Summary ---
Author Organization [facility] Address [address] [facility] [place] [address] Care Team Providers Care Brush Cleaner Name Role Phone Larisa Whalen MD Unavailable Larisa Whalen MD Primary Care Provider [phone] Encounter Details Date Type Department Care Team (Late Contact Info) Description 09/18/2024 Abstract [facility] FM [address] [facility] 110 [place] [address] Larisa Whalen MD [address] [place] [address] Social History Tobacco Use Types Packs/Day Years [...] CI PT [address] [place] [address] Fabricio Francois PTA 03/06/2025 3:30 PM EDT Office Visit [facility] FM [address] [place] [address] Larisa Whalen MD [address] [place] [address] 03/08/2025 10:30 AM EDT Treatment [facility] CI PT [address] [place] [address] Fabricio Francois, EXPERIMENTAL PSYCHOLOGIST 03/12/2025 10:30 AM EDT Treatment [facility] CI PT [address] [place] [address] Camden Charly, EXPERIMENTAL PSYCHOLOGIST 03/15/2025 11:30 AM EDT Treatment [facility] CI PT [address] [place] [address] Charly Hannah, EXPERIMENTAL PSYCHOLOGIST 03/20/2025 1:00 PM EDT Treatment [facility] CI PT [address] [facility] 170 [place] [address] Fabricio Francois, EXPERIMENTAL PSYCHOLOGIST documented as of this encounter Visit Diagnoses Not on filedocumented in this encounter Care Teams Brush Cleaner Relationship Specialty Start Date End Date Larisa Whalen MD [address] [place] [address] PCP - ACO Reach 01/14/23 Larisa Whalen MD [address] [place] [address] PCP - General Family Medicine 02/25/23 documented as of this encounter
--- OUTSIDE RECORDS SUMMARY | 2025-03-05 10:57 | XMS_ITS | Clinical Summary ---
Author Organization [facility] Address [address] [place] [address] Care Team Providers Care Rehab Department Manager Name Role Phone Larisa Whalen MD Primary Care Provider [phone] Allergies No known active allergies Medications diphenhydramine HCl (BENADRYL ALLERGY ORAL) Take by mouth. Active loperamide HCl (IMODIUM ORAL) Take by mouth as needed. Active JANUVIA 100 mg tablet TAKE 1 TABLET BY MOUTH EVERY DAY FOR 30 DAYS 10/16/2021 Active metFORMIN (GLUCOPHAGE) 500 mg tablet Take 500 mg by mouth daily with breakfast. Active Cholecalciferol, Vitamin D3, 50 mcg (2,000 unit) cap Take by mouth. Active atorvastatin (LIPITOR) 40 mg tablet Take 40 mg by mouth once daily. Active colchicine 0.6 mg tablet 2 tabs (1.2mg) x1 then 1 tab (0.6mg) x1 1 hour later. 11/23/2024 Active allopurinol (ZYLOPRIM) 100 mg tablet Take 100 mg by mouth once daily. Active Active Problems No known active problems Encounters Date Type Department Care Team Description 01/04/2025 10:45 AM EDT Office Visit Radiation Oncology [address] [place] [address] [place] [address] Stanley Leal MD History of prostate cancer (Primary Dx) 01/04/2025 Travel from Last 3 Months Immunizations Immunization Administration Dates Next Due COVID-19 original vaccine, f ull dose, monovalent (MODERNA) 11/01/2020,10/04/2020 Family History Medical History Relation Comments myeloma Mother Relation Status Comments Mother Social History Tobacco Use Types Packs/Day Years Used Date Smoking Tobacco: Never Smokeless Tobacco: Never Tobacco Cessation:Counseling Given: Not Answered Alcohol Use Standard Drinks/Week Comments Yes 0 (1 standard drink = 0.6 oz pur e alcohol) AUDIT-C Answer Date Recorded Q1: How often do you have a drink containing alc ohol? Monthly or less 04/17/2020 Average Number of Drinks Not on file 020 Frequency of Binge Drinking Not on file 03/24 PHQ-2 Answer Date Recorded PHQ-2 score 0 01/04/2025 Area Deprivation Index Answer Date Lon rded National Score (1-100), lower number is lower ri sk 61 12/31/2022 State Score (1-10), lower number is lower risk 4 12/31/2022 Data from: https://www.neighborhoodatlas.medicine.[facility] Last address used for calculation [address] 12/31/2022 Sex and Gender Information Value Date Recorded Sex Assigned at Not on file Legal Sex Male 9:46 AM EST Gender Identity Not on file Sexual Orientation Not on file Last Filed Vital Signs Vital Sign Reading Time Taken Comments Blood Pressure 132/71 01/04/2025 10:56 AM EDT Pulse 61 01/04/2025 10:56 AM EDT Temperature 36.3 C (97.3 F) 01/04/2025 10:56 AM EDT Respiratory Rate 18 01/04/2025 10:56 AM EDT Oxygen Saturation 97% 01/04/2025 10:56 AM EDT Inhaled Oxygen Concentration - - Weight 91.4 kg (201 lb 8 oz) 01/04/2025 10:56 AM EDT Height - - Body Mass Index - - Plan of Treatment Upcoming Encounters Date Type Department Care Team (Late st Contact Info) Description 01/03/2026 10:00 AM EDT Office Visit Radiation Oncology [address] [place] [address] Stanley Leal MD [address] [place] [address] 1year follow up Health Maintenance Due Date Last Done Comments Anxiety Screening 10/30/1963 Depression Screening 10/30/1963 DTaP,Tdap,Td Vaccine (1 - Tdap) 1964 Shingrix Vaccine (1 of 2) 10/30/1995 Medicare Annual Wellness Visit 01/22/2020 Pneumococcal Vaccine: 50+ (2 of 2 - PPSV23) 06/20/2020 06/20/2019, 06/24/2017 RSV Vaccine (1 - 1-dose 75+ series) 2020 Covid-19 Vaccine (4 - 2023-2 5 season) 2024 07/16/2021, 11/01/2020, 10/04/2020 Advance Directive Discussion 08/23/2024 Influenza Vaccine (#1) 2025 3, 06/02/2022, 06/11/2021, Additional history exists Diabetes Screening 11/29/2027 11/28/2024, 0 10/12/2001, 10/11/2001, Additional history exists Procedures Procedure Name Priority Date/Time Associated Diagnosis Comments EXTERNAL LAB 01/02/2025 10:09 AM EDT PSA (OUTSIDE) Routine 01/01/2025 BASIC METABOLIC PANEL 10/12/2001 6:20 AM EST from Last 3 Months or Most Recently Relevant to Health Maintenance Results * EXTERNAL LAB (01/02/2025 10:09 AM EDT) External Provider PA-C LABORATORY Final Res ult * PSA (OUTSIDE) (01/01/2025) PSA. 0.26 BLOOD SPECIMEN / Unknown 01/01/2025 [facility] Provider LABORATORY Final Result * (ABNORMAL) BASIC METABOLIC PNL (10/12/2001 6:20 AM EST) Glucose 108 65 - 110 mg/dL [facility] BUN 14 10 - 25 mg/dL [facility] Creatinine 1.7(A) 0.7 - 1.4 mg/dL [facility] Sodium 138 135 - 146 mmol/L [facility] Potassium 3.9 3.5 - 5.0 mmol/L [facility] Chloride 102 98 - 110 mmol/L [facility] CO2 26 24 - 32 mmol/L [facility] Anion Gap 10 0 - 15 mmol/L [facility] Calcium 7.9(A) 8.5 - 10.5 mg/dL [facility] 10/12/2001 6:20 AM EST [facility] [place] LABORATORY Final Result [facility] [address] [place] [address] from Last 3 Months or Most Recently Relevant to Health Maintenance Insurance MEDICARE [facility]/MED[facility] Se [facility] Address: [facility] [address] [place] [address] Care Teams Rehab Department Manager Relationship Specialty Start Date End Date Larisa Whalen MD [address] [address] PCP - General Family Medicine 04/17/20
--- OUTSIDE RECORDS SUMMARY | 2025-03-05 10:57 | XMS_ITS | Encounter Summary ---
Author Organization [facility] Address [address] [facility] [place] [address] Care Team Providers Care Brake Holder Name Role Phone Larisa Whalen MD Unavailable Larisa Whalen MD Primary Care Provider [phone] Encounter Details Date Type Department Care Team (Late Contact Info) Description 02/26/2025 Abstract [facility] CI FM [address] [facility] [address] [place] [address] Larisa Whlaen MD [address] [place] [address] Social History Tobacco Use Types Packs/Day Years [...] CI PT [address] [place] [address] Fabricio Francois PTA 03/06/2025 3:30 PM EDT Office Visit [facility] FM [address] [place] [address] Larisa Whalen MD [address] [place] [address] 03/08/2025 10:30 AM EDT Treatment [facility] CI PT [address] [place] [address] Fabricio Francois, DIGITAL COLOR PRESS OPERATOR 03/12/2025 10:30 AM EDT Treatment [facility] CI PT [address] [place] [address] Camden Charly, DIGITAL COLOR PRESS OPERATOR 03/15/2025 11:30 AM EDT Treatment [facility] CI PT [address] [place] [address] Charly Hannah, DIGITAL COLOR PRESS OPERATOR 03/20/2025 1:00 PM EDT Treatment [facility] CI PT [address] [facility] [address] [place] [address] Fabricio Francois, DIGITAL COLOR PRESS OPERATOR documented as of this encounter Visit Diagnoses Not on filedocumented in this encounter Care Teams Brake Holder Relationship Specialty Start Date End Date Larisa Whalen MD [address] [place] [address] PCP - ACO Reach 01/14/23 Larisa Whalen MD [address] [place] [address] PCP - General Family Medicine 02/25/23 documented as of this encounter
--- OUTSIDE RECORDS SUMMARY | 2025-03-05 10:57 | XMS_ITS | Encounter Summary ---
Author Organization [facility] Address [address] [place] [address] Care Team Providers Care Energy Conservation Specialist Name Role Phone Larisa Whalen MD Unavailable Larisa Whalen MD Primary Care Provider [phone] Encounter Details Date Type Department Care Team (Late st Contact Info) Description 05/28/2023 Abstract N[facility] [address] [facility] [address] [place] [address] Yas Proctor, FIOERLLA [address] [facility] 120 [place] [address] Social History Tobacco Use Types Packs/Day Years [...] CI PT [address] [place] [address] Fabricio Francois PTA 03/06/2025 3:30 PM EDT Office Visit [facility] FM [address] [place] [address] Larisa Whalen MD [address] [place] [address] 03/08/2025 10:30 AM EDT Treatment [facility] CI PT [address] [place] [address] Fabricio Francois, SOCIAL SCIENCE TEACHER 03/12/2025 10:30 AM EDT Treatment [facility] CI PT [address] [place] [address] Charly Hannah, SOCIAL SCIENCE TEACHER 03/15/2025 11:30 AM EDT Treatment [facility] CI PT [address] [place] [address] Charly Hannah, SOCIAL SCIENCE TEACHER 03/20/2025 1:00 PM EDT Treatment [facility] CI PT [address] [place] [address] Fabricio Francois, SOCIAL SCIENCE TEACHER documented as of this encounter Visit Diagnoses Not on filedocumented in this encounter Care Teams Energy Conservation Specialist Relationship Specialty Start Date End Date Larisa Whalen MD [address] [place] [address] PCP - ACO Reach 01/14/23 Larisa Whalen MD [address] [place] [address] PCP - General Family Medicine 02/25/23 documented as of this encounter
--- OUTSIDE RECORDS SUMMARY | 2025-03-05 10:57 | XMS_ITS | Encounter Summary ---
Author Organization [facility] Address [address] [place] [address] Care Team Providers Care Director Digital Catalogue Name Role Phone Larisa Whalen MD Unavailable Larisa Whalen MD Primary Care Provider [phone] Encounter Details Date Type Department Care Team (Late Contact Info) Description 01/31/2025 Orders Only [facility] FM [address] [place] [address] Transient alteration of awareness; Forgetfulness; [...] CI PT [address] [place] [address] Fabricio Francois PTA 03/06/2025 3:30 PM EDT Office Visit [facility] FM [address] [place] [address] Larisa Whalen MD [address] [place] [address] 03/08/2025 10:30 AM EDT Treatment [facility] CI PT [address] [place] [address] Fabricio Francois, CEO [employer] 03/12/2025 10:30 AM EDT Treatment [facility] CI PT [address] [place] [address] Charly Hannah, CEO [employer] 03/15/2025 11:30 AM EDT Treatment [facility] CI PT [address] [place] [address] Charly Hannah, CEO [employer] 03/20/2025 1:00 PM EDT Treatment [facility] CI PT [address] [place] [address] Fabricio Francois, CEO [employer] documented as of this encounter Visit Diagnoses Diagnosis Transient alteration of awareness Forgetfulness Other general symptoms Loss of balance Abnormality of gait documented in this encounter Care Teams Director Digital Catalogue Relationship Specialty Start Date End Date Larisa Whalen MD [address] [place] [address] PCP - ACO Reach 01/14/23 Larisa Whalen MD [address] [place] [address] PCP - General Family Medicine 02/25/23 documented as of this encounter
--- OUTSIDE RECORDS SUMMARY | 2025-03-05 10:57 | XMS_ITS | Encounter Summary ---
Author Organization [facility] Address [address] [place] [address] Care Team Providers Care Older Worker Specialist Name Role Phone Larisa Whalen MD Unavailable Larisa Whalen MD Primary Care Provider [phone] Encounter Details Date Type Department Care Team (Late Contact Info) Description 07/06/2023 Abstract [facility] 112 [facility] 110 [place] [address] Larisa Whalen MD 112 [facility] 110 [place] [address] Social History Tobacco Use Types Packs/Day Years [...] CI PT [address] [place] [address] Fabricio Francois PTA 03/06/2025 3:30 PM EDT Office Visit [facility] [address] [facility] 110 [place] [address] Larisa Whalen MD [address] [place] [address] [place] [address] 03/08/2025 10:30 AM EDT Treatment [facility] [address] [place] [address] Fabricio Francois, FLAT SURFACER 03/12/2025 10:30 AM EDT Treatment [facility] [address] [place] [address] Charly Hannah, FLAT SURFACER 03/15/2025 11:30 AM EDT Treatment [facility] [address] [place] [address] Charly Hannah, FLAT SURFACER 03/20/2025 1:00 PM EDT Treatment [facility] PT [address] [place] [address] Fabricio Francois, FLAT SURFACER documented as of this encounter Visit Diagnoses Not on filedocumented in this encounter Care Teams Older Worker Specialist Relationship Specialty Start Date End Date Larisa Whalen MD [address] [place] [address] [place] [address] PCP - ACO Reach 01/14/23 Larisa Whalen MD [address] [place] [address] PCP - General Family Medicine 02/25/23 documented as of this encounter
--- OUTSIDE RECORDS SUMMARY | 2025-03-05 10:57 | XMS_ITS | Encounter Summary ---
Author Organization [facility] Address [address] [place] [address] Care Team Providers Care Nitroglycerin Separator Operator Name Role Phone Larisa Whalen MD Primary Care Provider [phone] Source Comments In the event this information is protected by the Federal Confidentiality of Alcohol and Drug AbusePatient Records regulations: The Federal rules restrict any use of the information to criminally investigate or prosecute any alcohol or drug abuse patient.[facility] Encounter Details Date Type Department Care [...] 10:00 AM EDT Office Visit Radiation Oncology [address] [place], [place] [address] [address] Stanley Leal MD [address] [place] [address] [place] [address] 1year follow up documented as of this encounter Visit Diagnoses Not on filedocumented in this encounter Care Teams Nitroglycerin Separator Operator Relationship Specialty Start Date End Date Larisa Whalen MD [address] [address] PCP - General Family Medicine 04/17/20 documented as of this encounter
--- OUTSIDE RECORDS SUMMARY | 2025-03-05 10:58 | XMS_ITS | Encounter Summary ---
Author Organization [facility] Address [address] [place] [address] Care Team Providers Care Cook Fast Food Name Role Phone Larisa Whalen MD Unavailable Larisa Whalen MD Primary Care Provider [phone] Encounter Details Date Type Department Care Team (Late Contact Info) Description 08/11/2023 Abstract [facility] 112 [facility] 110 [place] [address] Larisa Whalen MD 112 [facility] 110 [place] [address] Social History Tobacco Use Types Packs/Day Years [...] CI PT [address] [place] [address] Fabricio Francois PTA 03/06/2025 3:30 PM EDT Office Visit [facility] [address] [facility] 110 [place] [address] Larisa Whalen MD [address] [place] [address] 03/08/2025 10:30 AM EDT Treatment [facility] [address] [place] [address] Fabricio Francois, SEISMOGRAPH SUPERVISOR 03/12/2025 10:30 AM EDT Treatment [facility] [address] [place] [address] Charly Hannah, SEISMOGRAPH SUPERVISOR 03/15/2025 11:30 AM EDT Treatment [facility] [address] [place] [address] Charly Hannah, SEISMOGRAPH SUPERVISOR 03/20/2025 1:00 PM EDT Treatment [facility] [address] [place] [address] Fabricio Francois, SEISMOGRAPH SUPERVISOR documented as of this encounter Visit Diagnoses Not on filedocumented in this encounter Care Teams Cook Fast Food Relationship Specialty Start Date End Date Larisa Whalen MD [address] [place] [address] PCP - ACO Reach 01/14/23 Larisa Whalen MD [address] [place] [address] PCP - General Family Medicine 02/25/23 documented as of this encounter
--- OUTSIDE RECORDS SUMMARY | 2025-03-05 10:58 | XMS_ITS | Encounter Summary ---
Author Organization [facility] Address [address] [facility] [place] [address] Care Team Providers Care Animal Trainer Supervisor Name Role Phone Larisa Whalen MD Unavailable Larisa Whalen MD Primary Care Provider [phone] Encounter Details Date Type Department Care Team (Late Contact Info) Description 08/18/2024 Abstract [facility] [address] [facility] 110 [place] [address] Larisa Whalen MD [address] [place] [address] [place] [address] Social History Tobacco Use Types Packs/Day Years [...] CI PT [address] [place] [address] Fabricio Francois PTA 03/06/2025 3:30 PM EDT Office Visit [facility] [address] [place] [address] Larisa Whalen MD [address] [place] [address] 03/08/2025 10:30 AM EDT Treatment [facility] [address] [place] [address] Fabricio Francois, SERVICE ATTENDANT CAFETERIA 03/12/2025 10:30 AM EDT Treatment [facility] [address] [place] [address] Camden Charly, SERVICE ATTENDANT CAFETERIA 03/15/2025 11:30 AM EDT Treatment [facility] [address] [place] [address] Charly Hannah, SERVICE ATTENDANT CAFETERIA 03/20/2025 1:00 PM EDT Treatment [facility] PT [address] [facility] 170 [place] [address] Fabricio Francois, SERVICE ATTENDANT CAFETERIA documented as of this encounter Visit Diagnoses Not on filedocumented in this encounter Care Teams Animal Trainer Supervisor Relationship Specialty Start Date End Date Larisa Whalen MD [address] [place] [address] PCP - ACO Reach 01/14/23 Larisa Whalen MD [address] [place] [address] PCP - General Family Medicine 02/25/23 documented as of this encounter
--- OUTSIDE RECORDS SUMMARY | 2025-03-05 10:58 | XMS_ITS | Clinical Summary ---
Author Organization [facility] Address [address] [place] [address] Care Team Providers Care Tester Printed Circuit Boards Name Role Phone Larisa Whalen MD Unavailable Larisa Whalen MD Primary Care Provider [phone] Allergies Active Allergy Reactions Criticality Noted Date [...] capsule Take by mouth. Active HYDROcodone-acet aminophen ([place]) 5-325 MG tablet TAKE 1-2 TABLET BY MOUTH THREE TIMES DAILY NEEDED Active K [place]-Sod Phos Di & Bos[place] (Phospha 250 Neutral) 155-852-130 MG tablet Take [...] Daily 09/19/19 25 026 Active Continuous Glucose Service Engineer (FreeStyle Mayito 2 [place]) deviceIndication s:Type 2 diabetes mellitus with chronic [...] AM EST): Signs and symptoms discussed of [place] Hold off exercise Possible referral to cardiology [...] [address] [place] [address] Fabricio Francois, AIR MARSHAL Pain, neck (Primary Dx); Cervical paraspinal muscle spasm 02/28/2025 Bamboo flowsheet [facility] [address] [place] [address] Fabricio Francois, FLORENCIO 02/28/2025 Travel 02/26/2025 Abstract [facility] [address] [place] [address] Larisa Whalen MD 02/22/2025 10:00 AM EDT Evaluation [facility] [address] [place] [address] Wilbert Joseph, PT Pain, neck (Primary Dx); Cervical paraspinal muscle spasm 02/22/2025 Plan of Care Documentation [facility] [address] [place] [address] 02/22/2025 Refill [facility] [address] [place] [address] Larisa Whalen MD Type 2 diabetes mellitus without complication, without long-term current use of insulin ([facility]) 02/22/2025 Bamboo flowsheet [facility] [address] [place] [address] Wilbert Joseph, PT 02/22/2025 Travel 02/12/2025 8:30 AM EDT Treatment [facility] [address] [place] [address] Fabricio Francois, AIR MARSHAL Acute low back pain without sciatica, unspecified back pain laterality (Primary Dx); Lumbar paraspinal muscle spasm; Acute left lumbar radiculopathy 02/12/2025 Telephone [facility] [address] [place] [address] Larisa Whalen MD 02/12/2025 Bamboo flowsheet [facility] [address] [place] [address] Alessandro Fabricio, AIR MARSHAL 02/12/2025 Travel 02/05/2025 9:00 AM EDT Treatment [facility] [address] [facility] 170 [place] [address] Fabricio Francois, AIR MARSHAL Acute low back pain without sciatica, unspecified back pain laterality (Primary Dx); Lumbar paraspinal muscle spasm 02/05/2025 Bamboo flowsheet [facility] [address] [facility] [address] [place] [address] Alessandro Fabricio, AIR MARSHAL 02/05/2025 Travel 01/31/2025 Orders Only [facility] [address] [facility] 110 [place] [address] Transient alteration of awareness; Forgetfulness; Loss of balance 01/17/2025 2:00 PM EDT Treatment [facility] PT [address] [facility] [address] [place] [address] Charly Hannah, AIR MARSHAL Acute low back pain without sciatica, unspecified back pain laterality (Primary Dx); Lumbar paraspinal muscle spasm; Acute left lumbar radiculopathy 01/17/2025 Bamboo flowsheet [facility] [address] [facility] [address] [place] [address] Charly Hannah, AIR MARSHAL 01/17/2025 Travel 01/12/2025 1:30 PM EDT Treatment [facility] [address] [facility] [address] [place] [address] Marilyn Ochoa, PT Acute low back pain without sciatica, unspecified back pain laterality (Primary Dx); Lumbar paraspinal muscle spasm; Acute left lumbar radiculopathy 01/12/2025 Bamboo flowsheet [facility] [address] [facility] [address] [place] [address] Marilyn Ochoa, PT 01/12/2025 Travel 01/10/2025 3:00 PM EDT Treatment [facility] [address] [facility] [address] [place] [address] Fabricio Francois, AIR MARSHAL Acute low back pain without sciatica, unspecified back pain laterality (Primary Dx); Lumbar paraspinal muscle spasm; Acute left lumbar radiculopathy 01/10/2025 Bamboo flowsheet [facility] [address] [facility] [address] [place] [address] Fabricio Francois, AIR MARSHAL 01/10/2025 Travel 01/04/2025 Abstract [facility] [address] [facility] 110 [place] [address] Larisa Whalen MD 01/03/2025 4:00 PM EDT Treatment [facility] [address] [facility] [address] [place] [address] Fabricio Francois, AIR MARSHAL Acute low back pain without sciatica, unspecified back pain laterality (Primary Dx); Lumbar paraspinal muscle spasm; Acute left lumbar radiculopathy 01/03/2025 Bamboo flowsheet [facility] [address] [facility] [address] [place] [address] Fabricio Francois, AIR MARSHAL 01/03/2025 Travel 01/01/2025 Clinisync Result Encounter NOMS External Department Unsolicited Provider, Generic External Data 12/26/2024 10:30 AM EDT Treatment [facility] PT [address] [facility] [address] [place] [address] Fabricio Francois, AIR MARSHAL Acute low back pain without sciatica, unspecified back pain laterality (Primary Dx); Lumbar paraspinal muscle spasm; Acute left lumbar radiculopathy 12/26/2024 Bamboo flowsheet [facility] [address] [facility] [address] [place] [address] Fabricio Francois, AIR MARSHAL 12/26/2024 Travel 12/18/2024 10:00 AM EDT Treatment [facility] PT [address] [facility] [address] [place] [address] Fabricio Francois, AIR MARSHAL Acute low back pain without sciatica, unspecified back pain laterality (Primary Dx); Lumbar paraspinal muscle spasm; Acute left lumbar radiculopathy 12/18/2024 Bamboo flowsheet [facility] [address] [place] [address] Fabricio Francois, AIR MARSHAL 12/18/2024 Travel 12/15/2024 11:30 AM EDT Treatment [facility] PT [address] [facility] [address] [place] [address] Fabricio Francois, AIR MARSHAL Acute low back pain without sciatica, unspecified back pain laterality (Primary Dx); Lumbar paraspinal muscle spasm; Acute left lumbar radiculopathy 12/15/2024 Bamboo flowsheet [facility] [address] [place] [address] Fabricio Francois, AIR MARSHAL 12/15/2024 Travel 12/11/2024 9:00 AM EDT Treatment [facility] PT [address] [facility] [address] [place] [address] Fabricio Francois, AIR MARSHAL Acute low back pain without sciatica, unspecified back pain laterality (Primary Dx); Lumbar paraspinal muscle spasm; Acute left lumbar radiculopathy; Low back pain with left-sided sciatica, unspecified back pain laterality, unspecified chronicity 12/11/2024 Bamboo flowsheet [facility] [address] [facility] [address] [place] [address] Fabricio Francois, AIR MARSHAL 12/11/2024 Travel 12/06/2024 10:00 AM EDT Treatment [facility] PT [address] [facility] [address] [place] [address] Fabricio Francois, AIR MARSHAL Acute low back pain without sciatica, unspecified back pain laterality (Primary Dx); Lumbar paraspinal muscle spasm; Acute left lumbar radiculopathy; Low back pain with left-sided sciatica, unspecified back pain laterality, unspecified chronicity 12/06/2024 Bamboo flowsheet [facility] [address] [facility] [address] [place] [address] Fabricio Francois, AIR MARSHAL 12/06/2024 Travel 12/04/2024 12:00 PM EDT Evaluation [facility] [address] [place] [address] Marilyn Ochoa, PT Acute low back pain without sciatica, unspecified back pain laterality (Primary Dx) 12/04/2024 Plan of Care Documentation [facility] [address] [place] [address] 12/04/2024 Bamboo flowsheet [facility] [address] [place] [address] Marilyn Ochoa, PT 12/04/2024 Travel from Last [...] [address] [place] [address] Fabricio Francois, AIR MARSHAL 03/06/2025 3:30 PM EDT Office Visit [facility] [address] [place] [address] Larisa Whalen MD [address] [place] [address] 03/08/2025 10:30 AM EDT Treatment [facility] PT [address] [place] [address] Fabricio Francois, AIR MARSHAL 03/12/2025 10:30 AM EDT Treatment [facility] PT [address] [place] [address] Charly Hannah, FLORENCIO 03/15/2025 11:30 AM EDT Treatment [facility] PT [address] [place] [address] Charly Hannah, FLORENCIO 03/20/2025 1:00 PM EDT Treatment [facility] PT [address] [place] [address] Fabricio Francois, AIR MARSHAL Health Maintenance Due Date Last Done Comments [...] current use of insulin, unspecified CKD stage ([facility]) MICROALBUMIN / CREATININE URINE RATIO Routine 08/28/2024 10:02 AM EST Type 2 diabetes mellitus with stage 3a chronic kidney disease, without long-term current use of insulin ([facility]) Medicare annual wellness visit, subsequent DIABETIC RETINOPATHY [...] Performing Organization Information Site ID: QPT Name: [facility] Address: [address] [place] [address], [address] [place] [id number] Director: Zurdo Ball MD us Larisa Whalen [...] Maintenance Insurance MEDICARE GENERIC COMMERCIAL Care Teams Tester Printed Circuit Boards Relationship Specialty Start Date End Date Larisa Whalen MD [address] [facility] 110 [place] [address] PCP - ACO Reach 01/14/23 Larisa Whalen MD [address] [facility] 110 [place] [address] PCP - General Family Medicine 02/25/23
--- OUTSIDE RECORDS SUMMARY | 2025-03-05 10:58 | XMS_ITS | Encounter Summary ---
Author Organization [facility] Address [address] [place] [address] Care Team Providers Care Hose Builder Name Role Phone Larisa Whalen MD Unavailable Larisa Whalen MD Primary Care Provider [phone] Encounter Details Date Type Department Care Team (Late Contact Info) Description 01/25/2024 Abstract [facility] 112 [facility] 110 [place] [address] Larisa Whalen MD 112 [facility] 110 [place] [address] Social History Tobacco Use Types Packs/Day Years [...] [address] [place] [address] Fabricio Francois PTA 03/06/2025 3:30 PM EDT Office Visit [facility] [address] [facility] 110 [place] [address] Larisa Whalen MD [address] [place] [address] 03/08/2025 10:30 AM EDT Treatment [facility] PT [address] [place] [address] Fabricio Francois, BROOMCORN THRESHER 03/12/2025 10:30 AM EDT Treatment [facility] PT [address] [place] [address] Charly Hannah, BROOMCORN THRESHER 03/15/2025 11:30 AM EDT Treatment [facility] PT [address] [place] [address] Charly Hannah, BROOMCORN THRESHER 03/20/2025 1:00 PM EDT Treatment [facility] PT [address] [place] [address] Fabricio Francois, BROOMCORN THRESHER documented as of this encounter Visit Diagnoses Not on filedocumented in this encounter Care Teams Hose Builder Relationship Specialty Start Date End Date Larsia Whalen MD [address] [place] [address] PCP - ACO Reach 01/14/23 Larisa Whalen MD [address] [place] [address] PCP - General Family Medicine 02/25/23 documented as of this encounter
--- OUTSIDE RECORDS SUMMARY | 2025-03-05 10:58 | XMS_ITS | Encounter Summary ---
Author Organization [facility] Address [address] [place] [address] Care Team Providers Care Payroll Services Analyst Name Role Phone Larisa Whalen MD Unavailable Larisa Whalen MD Primary Care Provider [phone] Encounter Details Date Type Department Care Team (Late Contact Info) Description 03/20/2024 Abstract [facility] 112 [facility] 110 [place] [address] Larisa Whalen MD 112 [facility] 110 [place] [address] Social History Tobacco Use Types Packs/Day Years [...] CI PT [address] [place] [address] Fabricio Francois PTA 03/06/2025 3:30 PM EDT Office Visit [facility] [address] [facility] 110 [place] [address] Larisa Whalen MD [address] [place] [address] 03/08/2025 10:30 AM EDT Treatment [facility] PT [address] [place] [address] Fabricio Francois, SANITARY ENGINEER 03/12/2025 10:30 AM EDT Treatment [facility] PT [address] [place] [address] Charly Hannah, SANITARY ENGINEER 03/15/2025 11:30 AM EDT Treatment [facility] PT [address] [place] [address] Charly Hannah, SANITARY ENGINEER 03/20/2025 1:00 PM EDT Treatment [facility] PT [address] [place] [address] Fabricio Francois, SANITARY ENGINEER documented as of this encounter Visit Diagnoses Not on filedocumented in this encounter Care Teams Payroll Services Analyst Relationship Specialty Start Date End Date Larisa Whalen MD [address] [place] [address] PCP - ACO Reach 01/14/23 Larisa Whalen MD [address] [place] [address] PCP - General Family Medicine 02/25/23 documented as of this encounter
--- OUTSIDE RECORDS SUMMARY | 2025-03-05 10:58 | XMS_ITS | Encounter Summary ---
Author Organization [facility] Address [address] [place] [address] Care Team Providers Care Track Laborer Name Role Phone Larisa Keyes MD Unavailable Larisa Keyes MD Primary Care Provider [phone] Encounter Details Date Type Department Care Team (Late st Contact Info) Description 08/24/2024 Clinisync Result Encounter NOMS External Department Unsolicited Larisa Keyes MD [address] [facility] 110 [place] [address] Social History Tobacco Use Types Packs/Day Years [...] CI PT [address] [place] [address] Fabricio Francois PTA 03/06/2025 3:30 PM EDT Office Visit [facility] [address] [place] [address] Larisa Keyes MD [address] [place] [address] 03/08/2025 10:30 AM EDT Treatment [facility] PT [address] [place] [address] Fabricio Francois, OIL CHANGE TECHNICIAN 03/12/2025 10:30 AM EDT Treatment [facility] PT [address] [place] [address] Charly Hannah, OIL CHANGE TECHNICIAN 03/15/2025 11:30 AM EDT Treatment [facility] PT [address] [place] [address] CamdenRosasCharly, OIL CHANGE TECHNICIAN 03/20/2025 1:00 PM EDT Treatment [facility] PT [address] [place] [address] Fabricio Francois, OIL CHANGE TECHNICIAN documented as of this encounter Procedures Procedure Name Priority Date/Time Associated Diagnosis Comments MR HEAD/BRAIN WO CON 08/24/2024 4:45 PM EST documented in this encounter Results * MR HEAD/BRAIN WO CON (08/24/2024 4:45 PM EST) Anatomical Region Laterality Modality Other 08/24/2024 4:45 PM EST Narrative 08/24/2024 4:47 PM EST [address] [address] Magnetic Resonance Report Signed Patient: ROCIO ZENG MR#: [id number] : 1945 Acct:[id number] Age/Sex: 78 / M ADM Date: 08/24/24 Loc: MRI Attending Dr: LARISA KEYES Ordering Physician: LARISA KEYES Date of Service: 08/24/24 Procedure(s): MR head/brain wo con Accession Number(s): [id number] cc: LARISA KEYES [address] [address] Patient Name: ROCIO ZENG MRN: [id number] date: 1945 Sex: M Assigned Patient Location: MRI Current Patient Location: MRI Accession/Order Number: [id number] Exam Date: 08/24/2024 13:10 Report Date: 08/24/2024 [...] M.D. Signed By: 08/24/241646 DD/ 44 TD/TT: Timber Cruiser: Procedure Note Radiology, Radiologist, MD - 08/24/2024 [place] [address] Magnetic Resonance Report Signed Patient: ROCIO ZENG AMR#: [id number] : 1945cct:[id number] Age/Sex: 78 / MADM Date: 08/24/24 Loc: MRI Attending Dr: LARISA KEYES Ordering Physician: LARISA KEYES Date of Service: 08/24/24 Procedure(s): MR head/brain wo con Accession Number(s): [id number] cc: LARISA KEYES The [address] [address] Patient Name: ROCIO ZENG MRN: [facility]:[id number] date: 1945 Sex: M Assigned Patient Location: MRI Current Patient Location: MRI Accession/Order Number: [id number] Exam Date: 08/24/2024 13:10 Report Date: 08/24/2024 [...] PECK M.D. Signed By:08/24/247 DD/ 44 TD/TT: Timber Cruiser: Larisa Keyes MD [facility] Final Result documented in this encounter Visit Diagnoses Not on filedocumented in this encounter Care Teams Track Laborer Relationship Specialty Start Date End Date Larisa Keyes MD [address] [facility] 110 [place] [address] PCP - ACO Reach 01/14/23 Larisa Keyes MD [address] [facility] 110 [place] [address] PCP - General Family Medicine 02/25/23 documented as of this encounter
--- OUTSIDE RECORDS SUMMARY | 2025-03-05 10:58 | XMS_ITS | Encounter Summary ---
Author Organization [facility] Address [address] [place] [address] Phone Care Team Providers Care Licensed Practical Nurse Name Role Phone Unavailable Primary Care Provider Unavailabl e Encounter Details Date Type Department Care Team (Late st Contact Info) Description 10/07/2023 Lab Requisition [facility] [address] [facility] [address] [place] [phone] Goyo Valladares MD PhD [address] [place] [address] B, [facility] [address] [place], [place] [id number] Disorder of the skin and subcutaneous tissue, [...] PM EST) Case Report Dermatopathology Report Case: [id number] Authorizing Provider: Goyo Valladares MD PhD Collected: 10/07/2023 Ordering Location: [facility] Received: 10/07/[address] [place] [address] Pathologist: Daphney Ho MD Specimen: OUTSIDE BLOCK(S)/SLIDE(S), 3 SLIDES, [facility] #[id number] (BX: 09/27/2023) 4 3:48 PM EST [facility] FINAL DIAGNOSIS 3 SLIDES, [facility] #[id number] (BX: 09/27/2023) SKIN, RIGHT FOREHEAD, SHAVE BIOPSY: [...] Daphney Ho MD 4 3:48 PM EST [facility] at 1548 EST Clinical History 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 4 3:48 PM EST [facility] Specimen Description A. OUTSIDE BLOCK(S)/SLIDE(S). Received for consultation from [facility] are three slides labeled [id number] (BX: 09/27/2023) along with the corresponding pathology report. 4 3:48 PM EST [facility] Outside Materials (OUTSIDE BLOCK(S)/SLIDE(S) ) 10/07/2023 12:13 PM EST 10/07/2023 12:13 PM EST us Goyo Valladares MD PhD LAB PATHOLOGY ORDERABLES Final Result [facility] [id number] [place] [address] documented in this encounter Visit Diagnoses Diagnosis Disorder of the skin and subcutaneous tissue, unspecified documented in this encounter
--- OUTSIDE RECORDS SUMMARY | 2025-03-05 10:58 | XMS_ITS | Encounter Summary ---
Author Organization [facility] Address [address] [place] [address] Care Team Providers Care Professor Of Environmental Engineering Name Role Phone Larisa Whalen MD Unavailable Larisa Whalen MD Primary Care Provider [phone] Encounter Details Date Type Department Care Team (Late st Contact Info) Description 05/03/2024 External Result Encounter [facility] External Department Unsolicited Subha Neal, FIORELLA [address] [facility] [address] [place] [address] Social History Tobacco Use Types Packs/Day Years [...] CI PT [address] [place] [address] Fabricio Francois PTA 03/06/2025 3:30 PM EDT Office Visit [facility] CI FM [address] [place] [place] [address] Larisa Whalen MD [address] [place] [address] [place] [address] 03/08/2025 10:30 AM EDT Treatment [facility] CI PT [address] [place] [address] AlessandroFabricio, RATING EXAMINER 03/12/2025 10:30 AM EDT Treatment [facility] CI PT [address] [place] [address] CamdenCharly, RATING EXAMINER 03/15/2025 11:30 AM EDT Treatment [facility] CI PT [address] [place] [address] Camden Charly, RATING EXAMINER 03/20/2025 1:00 PM EDT Treatment [facility] CI PT [address] [place] [address] Fabricio Francois, RATING EXAMINER documented as of this encounter Procedures Procedure [...] Danya Lovelace M.D.05/03/2024 10:19 AM Dictation Location: [place] [address] Transcribed By: [facility] 05/03/24 1019 Dictated By: Danya Lovelace MD 05/03/24 1015 Signed By: <Electronically signed by MD Danya Lovelace in OV> 05/03/24 1019 Narrative 05/03/2024 10:22 AM EDT [facility] [place] [address] CT Scan Report Signed Patient: Ritchie Zeng MR#: [id number] : 1945 Acct:[id number] Age/Sex: 78 / M ADM Date: 05/03/24 Loc: CT Room: [facility] Attending Dr: Subha Neal SWITCH MAKER-C Copies to: RENAY Simpson Ordering Provider: RENAY [...] Procedure Note Radiology, Radiologist, MD - 05/03/2024 [facility] [place] [address] [place] [address] CT Scan Report Signed Patient: Ritchie Zeng [facility]#: [id number] : 1945cct:[id number] Age/Sex: 78 / MADM Date: 05/03/24 Loc: CT Room:Type: [facility] CLI Attending Dr: Subha Neal SWITCH MAKER-C Copies to: RENAY Simpson Ordering Provider: RENAY [...] Danya Lovelace M.D.05/03/2024 10:19 AM Dictation Location: [place] [address] Transcribed By: [facility] 05/03/24 1019 Dictated By: Danya Lovelace MD 05/03/24 1015 Signed By: <Electronically signed by MD Danya Lovelace in OV> 05/03/24 1019 Subha Neal SWITCH MAKER IMG CT PROCEDURES Final Resu lt documented in this encounter Visit Diagnoses Not on filedocumented in this encounter Care Teams Professor Of Environmental Engineering Relationship Specialty Start Date End Date Larisa Whalen MD [address] [address] PCP - ACO Reach 01/14/23 Larisa Whalen MD [address] [facility] [facility] 110 [place] [address] PCP - General Family Medicine 02/25/23 documented as of this encounter
--- OUTSIDE RECORDS SUMMARY | 2025-03-05 10:58 | XMS_ITS | Encounter Summary ---
Author Organization [facility] Address [address] [facility] [place] [address] Care Team Providers Care Painter And Paperhanger Apprentice Name Role Phone Larisa Whalen MD Unavailable Larisa Whalen MD Primary Care Provider [phone] Encounter Details Date Type Department Care Team (Late st Contact Info) Description 08/12/2023 Orders Only [facility] CI FM [address] [place] [address] A, Unknown Practice [address] [place], [place] [phone] Social History Tobacco Use Types Packs/Day Years [...] CI PT [address] [place] [address] Fabricio Francois PTA 03/06/2025 3:30 PM EDT Office Visit [facility] CI FM [address] [place] [address] Larisa Whalen MD [address] [place] [address] [place] [address] 03/08/2025 10:30 AM EDT Treatment [facility] CI PT [address] [place] [address] Fabricio Francois, WIRE SPLICER 03/12/2025 10:30 AM EDT Treatment [facility] CI PT [address] [place] [address] Charly Hannah, WIRE SPLICER 03/15/2025 11:30 AM EDT Treatment [facility] CI PT [address] [place] [address] Charly Hannah, WIRE SPLICER 03/20/2025 1:00 PM EDT Treatment [facility] CI PT [address] [place] [address] Fabricio Francois, WIRE SPLICER documented as of this encounter Procedures Procedure Name Priority Date/Time Associated Diagnosis Comments ELECTROCARDIOGRAM REPORT Routine 023 8:45 AM EST documented in this encounter Results * Electrocardiogram Report (08/11/2023 8:45 AM EST) us Unknown Practice A IN CLINIC/BEDSIDE ORDERABLES Final Result documented in this encounter Visit Diagnoses Not on filedocumented in this encounter Care Teams Painter And Paperhanger Apprentice Relationship Specialty Start Date End Date Larisa Whalen MD [address] [facility] [address] [place] [address] PCP - ACO Reach 01/14/23 Larisa Whalen MD [address] [place] [address] [place] [address] PCP - General Family Medicine 02/25/23 documented as of this encounter
--- OUTSIDE RECORDS SUMMARY | 2025-03-05 10:58 | XMS_ITS | Encounter Summary ---
Author Organization [facility] Address [address] [place] [address] Care Team Providers Care Generation Engineer Name Role Phone Larisa Whalen MD Unavailable Larisa Whalen MD Primary Care Provider Encounter Details Date Type Department Care Team (Late Contact Info) Description 02/22/2025 Plan of Care Documentation [facility] CI PT [address] [facility] [address] [place] [address] Social History Tobacco Use Types Packs/Day Years [...] CI PT [address] [place] [address] Fabricio Francois PTA 03/06/2025 3:30 PM EDT Office Visit [facility] [address] [place] [address] [place] [address] Larisa Whalen MD [address] [place] [address] [place] [address] 03/08/2025 10:30 AM EDT Treatment [facility] CI PT [address] [place] [address] Fabricio Francois, ENGLISH TUTOR 03/12/2025 10:30 AM EDT Treatment [facility] CI PT [address] [place] [address] Charly Hannah, ENGLISH TUTOR 03/15/2025 11:30 AM EDT Treatment [facility] CI PT [address] [place] [address] Charly Hannah, ENGLISH TUTOR 03/20/2025 1:00 PM EDT Treatment [facility] CI PT [address] [place] [address] Fabricio Francois, ENGLISH TUTOR documented as of this encounter Visit Diagnoses Not on filedocumented in this encounter Care Teams Generation Engineer Relationship Specialty Start Date End Date Larisa Whalen MD [address] [place] [address] [place] [address] PCP - ACO Reach 01/14/23 Larisa Whalen MD [address] [place] [address] [place] [address] PCP - General Family Medicine 02/25/23 documented as of this encounter
--- OUTSIDE RECORDS SUMMARY | 2025-03-05 10:58 | XMS_ITS | Encounter Summary ---
Author Organization [facility] Address [address] [place] [address] Care Team Providers Care Body Engineer Name Role Phone Larisa Whalen MD Unavailable Larisa Whalen MD Primary Care Provider [phone] Encounter Details Date Type Department Care Team (Late Contact Info) Description 02/28/2025 Bamboo flowsheet [facility] CI PT [address] [place] [address] Fabricio Francois PTA Social History [...] PT [address] [place] [phone] Fabricio Francois PTA 03/06/2025 3:30 PM EDT Office Visit [facility] FM [address] [place] [place] [address] Larisa Whalen MD [address] [place] [address] [place] [address] 03/08/2025 10:30 AM EDT Treatment [facility] CI PT [address] [place] [address] Fabricio Francois, CREAM RIPENER 03/12/2025 10:30 AM EDT Treatment [facility] CI PT [address] [place] [address] Charly Hannah, CREAM RIPENER 03/15/2025 11:30 AM EDT Treatment [facility] CI PT [address] [place] [address] Charly Hannah, CREAM RIPENER 03/20/2025 1:00 PM EDT Treatment [facility] CI PT [address] [place] [address] Fabricio Francois, CREAM RIPENER documented as of this encounter Visit Diagnoses Not on filedocumented in this encounter Care Teams Body Engineer Relationship Specialty Start Date End Date Larisa Whalen MD [address] [place] [address] [place] [address] PCP - ACO Reach 01/14/23 Larisa Whalen MD [address] [place] [address] [place] [address] PCP - General Family Medicine 02/25/23 documented as of this encounter
--- OUTSIDE RECORDS SUMMARY | 2025-03-05 10:58 | XMS_ITS | Encounter Summary ---
Author Organization [facility] Address [address] [facility] [address] Care Team Providers Care Cloth Burler Name Role Phone Larisa Whalen MD Unavailable Larisa Whalen MD Primary Care Provider [phone] Encounter Details Date Type Department Care Team (Late st Contact Info) Description 08/11/2023 Orders Only [facility] CI FM [address] [place] [address] A, Unknown Practice [address] [place], [place] [address] Social History Tobacco Use Types Packs/Day Years [...] CI PT [address] [place] [address] Fabricio Francois PTA 03/06/2025 3:30 PM EDT Office Visit [facility] CI FM [address] [place] [address] Larisa Whalen MD [address] [place] [address] [place] [address] 03/08/2025 10:30 AM EDT Treatment [facility] CI PT [address] [place] [address] Fabricio Francois, GUIDE RAIL CLEANER 03/12/2025 10:30 AM EDT Treatment [facility] CI PT [address] [place] [address] Camden Charly, GUIDE RAIL CLEANER 03/15/2025 11:30 AM EDT Treatment [facility] CI PT [address] [place] [address] Charly Hannah, GUIDE RAIL CLEANER 03/20/2025 1:00 PM EDT Treatment [facility] CI PT [address] [place] [address] Fabricio Francois, GUIDE RAIL CLEANER documented as of this encounter Procedures Procedure [...] on filedocumented in this encounter Care Teams Cloth Burler Relationship Specialty Start Date End Date Larisa Whalen MD [address] [facility] [address] [place] [address] PCP - ACO Reach 01/14/23 Larisa Whalen MD [address] [place] [address] [place] [address] PCP - General Family Medicine 02/25/23 documented as of this encounter
--- OUTSIDE RECORDS SUMMARY | 2025-03-05 10:58 | XMS_ITS | Encounter Summary ---
Author Organization [facility] Address [address] [place] [address] Care Team Providers Care Housing Officer Name Role Phone Larisa Whalen MD Unavailable Larisa Whalen MD Primary Care Provider [phone] Encounter Details Date Type Department Care Team (Late Contact Info) Description 01/05/2024 Abstract [facility] CI FM 112 [facility] 110 [place] [address] Larisa Whalen MD 112 [facility] 110 [place] [address] Social History Tobacco Use Types Packs/Day Years [...] CI PT [address] [place] [address] Fabricio Francois PTA 03/06/2025 3:30 PM EDT Office Visit [facility] CI FM [address] [facility] 110 [place] [address] Larisa Whalen MD [address] [place] [address] [place] [address] 03/08/2025 10:30 AM EDT Treatment [facility] CI PT [address] [place] [address] Fabricio Francois, EXPLOSIVE EXPERT 03/12/2025 10:30 AM EDT Treatment [facility] CI PT [address] [place] [address] Charly Hannah, EXPLOSIVE EXPERT 03/15/2025 11:30 AM EDT Treatment [facility] CI PT [address] [place] [address] Charly Hannah, EXPLOSIVE EXPERT 03/20/2025 1:00 PM EDT Treatment [facility] CI PT [address] [place] [address] Fabricio Francois, EXPLOSIVE EXPERT documented as of this encounter Visit Diagnoses Not on filedocumented in this encounter Care Teams Housing Officer Relationship Specialty Start Date End Date Larisa Whalen MD [address] [place] [address] [place] [address] PCP - ACO Reach 01/14/23 Larisa Whalen MD [address] [place] [address] [place] [address] PCP - General Family Medicine 02/25/23 documented as of this encounter
--- OUTSIDE RECORDS SUMMARY | 2025-03-05 10:58 | XMS_ITS | Encounter Summary ---
Author Organization [facility] Address [address] [place] [address] Phone Care Team Providers Care Control Room Helper Name Role Phone Unavailable Primary Care Provider Unavailabl e Reason for Referral * Consultation (Routine) - Authorized Specialty Diagnoses / Procedures Referred By La case Referred To Contact Dermatology Diagnoses Neoplasm of uncertain behavior of skin Julee Hebert APRN-CNP [address] [facility] [address] [place] [address] Phone: tel: fax: Referral ID Status Reason Start Date Expiration Date Visits Requested Visits Authorized [id number] Authorized Specialty Services Required 10/12/2023 10/11/2024 1 1 Encounter Details Date Type Department Care Team (Latest Contact Info) Description 10/12/2023 Transcribe Orders [address] [place] [address] Julee Hebert APRN-CNP [address] [facility] [address] [place] [address] Neoplasm of uncertain behavior of skin (Primary [...]
--- OUTSIDE RECORDS SUMMARY | 2025-03-05 10:58 | XMS_ITS | Encounter Summary ---
Author Organization [facility] Address [address] [place] [address] Care Team Providers Care Reproduction Order Processor Name Role Phone Larisa Whalen MD Unavailable Larisa Whalen MD Primary Care Provider [phone] Encounter Details Date Type Department Care Team [...] CI PT [address] [place] [address] Fabricio Francois PTA 03/06/2025 3:30 PM EDT Office Visit [facility] CI FM [address] [place] [address] Larisa Whalen MD [address] [place] [address] [place], [place] [address] 03/08/2025 10:30 AM EDT Treatment [facility] CI PT [address] [facility] [address] [place] [address] Fabricio Francois, TELECOMMUNICATIONS SPECIALIST 03/12/2025 10:30 AM EDT Treatment [facility] CI PT [address] [place] [address] Charly Hannah, TELECOMMUNICATIONS SPECIALIST 03/15/2025 11:30 AM EDT Treatment [facility] CI PT [address] [facility] [address] [place] [address] Charly Hannah, TELECOMMUNICATIONS SPECIALIST 03/20/2025 1:00 PM EDT Treatment [facility] CI PT [address] [facility] [address] [place] [address] Fabricio Francois, TELECOMMUNICATIONS SPECIALIST documented as of this encounter Visit Diagnoses Not on filedocumented in this encounter Care Teams Reproduction Order Processor Relationship Specialty Start Date End Date Larisa Whalen MD [address] [facility] [address] [place] [address] PCP - ACO Reach 01/14/23 Larisa Whalen MD [address] [facility] [address] [place] [address] PCP - General Family Medicine 02/25/23 documented as of this encounter
--- OUTSIDE RECORDS SUMMARY | 2025-03-05 10:58 | XMS_ITS | Encounter Summary ---
Author Organization [facility] Address [address] [place] [address] Care Team Providers Care Inweaver Name Role Phone Larisa Whalen MD Unavailable Larisa Whalen MD Primary Care Provider [phone] Reason for Visit * Reason Comments Med Refill Encounter Details Date Type Department Care Team (Late st Contact Info) Description 02/22/2025 Refill [facility] FM [address] [place] [address] Larisa Whalen MD [address] [place] [address] [place] [address] Type 2 diabetes mellitus without complication, without [...] CI PT [address] [place] [address] Fabricio Francois, WATER MECHANIC 03/06/2025 3:30 PM EDT Office Visit [facility] CI FM [address] [place] [address] Larisa Whalen MD [address] [place] [address] [place] [address] 03/08/2025 10:30 AM EDT Treatment [facility] CI PT [address] [place] [address] Fabricio Francois, WATER MECHANIC 03/12/2025 10:30 AM EDT Treatment [facility] CI PT [address] [place] [address] Charly Hannah, WATER MECHANIC 03/15/2025 11:30 AM EDT Treatment [facility] CI PT [address] [place] [address] Charly Hannah, WATER MECHANIC 03/20/2025 1:00 PM EDT Treatment [facility] CI PT [address] [place] [address] Fabricio Francois, WATER MECHANIC documented as of this encounter Visit Diagnoses Diagnosis Type 2 diabetes mellitus without complication, without long-term current use of insulin (HCC) documented in this encounter Care Teams Inweaver Relationship Specialty Start Date End Date Larisa Whalen MD [address] [place] [address] [place] [address] PCP - ACO Reach 01/14/23 Larisa Whalen MD [address] [place] [address] [place] [address] PCP - General Family Medicine 02/25/23 documented as of this encounter
--- OUTSIDE RECORDS SUMMARY | 2025-03-05 10:58 | XMS_ITS | Encounter Summary ---
Author Organization [facility] Address [address] [place] [place] [address] Care Team Providers Care Blasting Cap Assembler Name Role Phone Larisa Whalen MD Unavailable Larisa Whalen MD Primary Care Provider [phone] Encounter Details Date Type Department Care Team (Late Contact Info) Description 08/17/2024 Abstract [facility] CI FM [address] [facility] [address] [place] [address] Larisa Whalen MD [address] [place] [address] [place] [address] Social History Tobacco Use Types Packs/Day Years [...] CI PT [address] [place] [address] Fabricio Francois PTA 03/06/2025 3:30 PM EDT Office Visit [facility] FM [address] [place] [address] Larisa Whalen MD [address] [place] [address] [place] [address] 03/08/2025 10:30 AM EDT Treatment [facility] CI PT [address] [place] [address] Fabricio Francois, REALTIME REPORTER 03/12/2025 10:30 AM EDT Treatment [facility] CI PT [address] [place] [address] Camden Charly, REALTIME REPORTER 03/15/2025 11:30 AM EDT Treatment [facility] CI PT [address] [place] [address] Charly Hannah, REALTIME REPORTER 03/20/2025 1:00 PM EDT Treatment [facility] CI PT [address] [facility] [address] [place] [address] Fabricio Francois, REALTIME REPORTER documented as of this encounter Visit Diagnoses Not on filedocumented in this encounter Care Teams Blasting Cap Assembler Relationship Specialty Start Date End Date Larisa Whalen MD [address] [place] [address] [place] [address] PCP - ACO Reach 01/14/23 Larisa Whalen MD [address] [place] [address] [place] [address] PCP - General Family Medicine 02/25/23 documented as of this encounter
--- OUTSIDE RECORDS SUMMARY | 2025-03-05 10:58 | XMS_ITS | Encounter Summary ---
Author Organization [facility] Address [address] [place] [address] Care Team Providers Care Dog Or Horse Racing Official Name Role Phone Larisa Whalen MD Unavailable Larisa Whalen MD Primary Care Provider [phone] Encounter Details Date Type Department Care Team (Late Contact Info) Description 08/02/2024 Abstract [facility] CI FM 112 [facility] 110 [place] [address] Larisa Whalen MD 112 [facility] 110 [place] [address] Social History Tobacco Use Types Packs/Day Years [...] CI PT [address] [place] [address] Fabricio Francois PTA 03/06/2025 3:30 PM EDT Office Visit [facility] [address] [facility] 110 [place] [address] Larisa Whalen MD [address] [place] [address] [place] [address] 03/08/2025 10:30 AM EDT Treatment [facility] CI PT [address] [place] [address] [place] [address] Fabricio Francois, JACK TAMP OPERATOR 03/12/2025 10:30 AM EDT Treatment [facility] CI PT [address] [place] [address] [place] [address] Charly Hannah, JACK TAMP OPERATOR 03/15/2025 11:30 AM EDT Treatment [facility] CI PT [address] [place] [address] Charly Hannah, JACK TAMP OPERATOR 03/20/2025 1:00 PM EDT Treatment [facility] CI PT [address] [address] [place] [address] Fabricio Francois, JACK TAMP OPERATOR documented as of this encounter Visit Diagnoses Not on filedocumented in this encounter Care Teams Dog Or Horse Racing Official Relationship Specialty Start Date End Date Larisa Whalen MD [address] [place] [address] [place] [address] PCP - ACO Reach 01/14/23 Larisa Whalen MD [address] [place] [address] [place] [address] PCP - General Family Medicine 02/25/23 documented as of this encounter
--- OUTSIDE RECORDS SUMMARY | 2025-03-05 10:58 | XMS_ITS | Encounter Summary ---
Author Organization [facility] Address [address] [place] [address] Care Team Providers Care Apartment Community Manager Name Role Phone Larisa Whalen MD Unavailable Larisa Whalen MD Primary Care Provider [phone] Encounter Details Date Type Department Care Team [...] CI PT [address] [place] [phone] Fabricio Francois PTA 03/06/2025 3:30 PM EDT Office Visit [facility] [address] [place] [phone] Larisa Whalen MD [address] [place], [place] [phone] 03/08/2025 10:30 AM EDT Treatment [facility] [address] [facility] [address] [place] [address] Fabricio Francois, MECHANISM INSPECTOR 03/12/2025 10:30 AM EDT Treatment [facility] [address] [place] [address] Charly Hannah, MECHANISM INSPECTOR 03/15/2025 11:30 AM EDT Treatment [facility] [address] [facility] [address] [place] [address] Charly Hannah, MECHANISM INSPECTOR 03/20/2025 1:00 PM EDT Treatment [facility] [address] [facility] [address] [place] [address] Fabricio Francois, MECHANISM INSPECTOR documented as of this encounter Visit Diagnoses Not on filedocumented in this encounter Care Teams Apartment Community Manager Relationship Specialty Start Date End Date Larisa Whalen MD [address] [facility] [address] [place] [address] PCP - ACO Reach 01/14/23 Larisa Whalen MD [address] [facility] [address] [place] [address] PCP - General Family Medicine 02/25/23 documented as of this encounter
--- OUTSIDE RECORDS SUMMARY | 2025-03-05 10:58 | XMS_ITS | Clinical Summary ---
Author Organization [facility] Address [address] [place] [address] Phone Care Team Providers Care Under Baster Name Role Phone Unavailable Primary Care Provider [...]
--- OUTSIDE RECORDS SUMMARY | 2025-03-05 10:58 | XMS_ITS | Encounter Summary ---
Author Organization [facility] Address [address] [place] [address] Phone Care Team Providers Care Crude Oil Driver Name Role Phone Unavailable Primary Care Provider Unavailabl e Encounter Details Date Type Department Care Team (Late st Contact Info) Description 11/04/2023 Scanned Document [facility] [address] [phone] Goyo Valladares MD PhD [address], [address] [id number] Social History Tobacco Use Types Packs/Day Years [...]
--- OUTSIDE RECORDS SUMMARY | 2025-03-05 10:58 | XMS_ITS | Encounter Summary ---
Author Organization [facility] Address [address] [place] [address] Care Team Providers Care Elastic Yarn Twister Helper Name Role Phone Larisa Whalen MD Unavailable Larisa Whalen MD Primary Care Provider [phone] Encounter Details Date Type Department Care Team (Late Contact Info) Description 02/22/2025 Bamboo flowsheet [facility] [address] [facility] [address] [place] [address] Wilbert Joseph, PT [address] [place] [address] Social History Tobacco Use Types Packs/Day Years [...] CI PT [address] [place] [address] Fabricio Francois PTA 03/06/2025 3:30 PM EDT Office Visit [facility] [address] [place] [address] Larisa Whalen MD [address] [place] [address] 03/08/2025 10:30 AM EDT Treatment [facility] [address] [place] [address] Fabricio Francois, CHARTERED WEALTH MANAGER 03/12/2025 10:30 AM EDT Treatment [facility] [address] [place] [address] Charly Hannah, CHARTERED WEALTH MANAGER 03/15/2025 11:30 AM EDT Treatment [facility] [address] [place] [address] Charly Hannah, CHARTERED WEALTH MANAGER 03/20/2025 1:00 PM EDT Treatment [facility] [address] [place] [address] Fabricio Francois, CHARTERED WEALTH MANAGER documented as of this encounter Visit Diagnoses Not on filedocumented in this encounter Care Teams Elastic Yarn Twister Helper Relationship Specialty Start Date End Date Larisa Whalen MD [address] [place] [address] PCP - ACO Reach 01/14/23 Larisa Whalen MD [address] [place] [address] PCP - General Family Medicine 02/25/23 documented as of this encounter
--- OUTSIDE RECORDS SUMMARY | 2025-03-07 09:22 | XMS_ITS | Encounter Summary ---
Author Organization [facility] Address [address] [place] [address] Phone Care Team Providers Care Belt Sander Stone Name Role Phone Unavailable Primary Care Provider Unavailabl e Reason for Referral * Consultation (Routine) - Authorized Specialty Diagnoses / Procedures Referred By La case Referred To Contact Dermatology Diagnoses Neoplasm of uncertain behavior of skin Julee Hebert APRN-CNP [address] [facility] [address] [place] [address] Phone: tel: fax: Referral ID Status Reason Start Date Expiration Date Visits Requested Visits Authorized [id number] Authorized Specialty Services Required 10/12/2023 10/11/2024 1 1 Encounter Details Date Type Department Care Team (Latest Contact Info) Description 10/12/2023 Transcribe Orders [address] [place] [address] Julee Hebert APRN-CNP [address] [facility] [address] [place] [address] Neoplasm of uncertain behavior of skin (Primary [...]
--- OUTSIDE RECORDS SUMMARY | 2025-03-07 09:22 | XMS_ITS | Encounter Summary ---
Author Organization [facility] Address [address] [place] [address] Care Team Providers Care Linseed Oil Boiler Name Role Phone Larisa Whalen MD Primary Care Provider [phone] Source Comments In the event this information is protected by the Federal Confidentiality of Alcohol and Drug AbusePatient Records regulations: The Federal rules restrict any use of the information to criminally investigate or prosecute any alcohol or drug abuse patient.[facility] Encounter Details Date Type Department Care Team [...] 10:00 AM EDT Office Visit Radiation Oncology [address] [place], [place] [address] [address] Stanley Leal MD [address] [place] [address] [place] [address] 1year follow up documented as of this encounter Visit Diagnoses Not on filedocumented in this encounter Care Teams Linseed Oil Boiler Relationship Specialty Start Date End Date Larisa Whalen MD [address] [address] PCP - General Family Medicine 04/17/20 documented as of this encounter
--- OUTSIDE RECORDS SUMMARY | 2025-03-07 09:22 | XMS_ITS | Encounter Summary ---
Author Organization [facility] Address [address] [place] [address] Phone Care Team Providers Care Executive Assistant To President Name Role Phone Unavailable Primary Care Provider Unavailabl e Encounter Details Date Type Department Care Team (Late st Contact Info) Description 10/07/2023 Lab Requisition [facility] [address] [facility] [address] [place] [phone] Goyo Valladares MD PhD [address] [place] [address] B, [facility] [address] [place], [place] [id number] Disorder of the skin and subcutaneous tissue, [...] PM EST) Case Report Dermatopathology Report Case: [id number] Authorizing Provider: Goyo Valladares MD PhD Collected: 10/07/20231212 Ordering Location: [facility] Received: 10/07/[address] [place] [address] Pathologist: Daphney Ho MD Specimen: OUTSIDE BLOCK(S)/SLIDE(S), 3 SLIDES, [facility] #[id number] (BX: 09/27/2023) 4 3:48 PM EST [facility] FINAL DIAGNOSIS 3 SLIDES, [facility] #[id number] (BX: 09/27/2023) SKIN, RIGHT FOREHEAD, SHAVE BIOPSY: [...] Daphney Ho MD 4 3:48 PM EST [facility] at 1548 EST Clinical History 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 4 3:48 PM EST [facility] Specimen Description A. OUTSIDE BLOCK(S)/SLIDE(S). Received for consultation from [facility] are three slides labeled [id number] (BX: 09/27/2023) along with the corresponding pathology report. 4 3:48 PM EST [facility] Outside Materials (OUTSIDE BLOCK(S)/SLIDE(S) ) 10/07/2023 12:13 PM EST 10/07/2023 12:13 PM EST us Goyo Valladares MD PhD LAB PATHOLOGY ORDERABLES Final Result [facility] [address] [place] [address] documented in this encounter Visit Diagnoses Diagnosis Disorder of the skin and subcutaneous tissue, unspecified documented in this encounter
--- OUTSIDE RECORDS SUMMARY | 2025-03-07 09:22 | XMS_ITS | Clinical Summary ---
Author Organization [facility] Address [address] [place] [address] Care Team Providers Care Bilingual Legal Assistant Name Role Phone Larisa Whalen MD Primary Care Provider [phone] Allergies No known active allergies Medications diphenhydramine [...] 10:45 AM EDT Office Visit Radiation Oncology [address] [place] [address] [place] [address] Stanley Leal MD History of prostate cancer [...] is lower risk 4 12/31/2022 Data from: https://www.neighborhoodatlas.medicine.[facility]/. Last address used for calculation [address] [facility] 12/31/2022 Sex and Gender Information Value [...] AM EDT Office Visit Radiation Oncology [address] [address] Stanley Leal MD [address] [address] 1year follow up Health Maintenance Due Date [...] EST) Glucose 108 65 - 110 mg/dL [facility] BUN 14 10 - 25 mg/dL [facility] Creatinine 1.7(A) 0.7 - 1.4 mg/dL [facility] Sodium 138 135 - 146 mmol/L [facility] Potassium 3.9 3.5 - 5.0 mmol/L [facility] Chloride 102 98 - 110 mmol/L [facility] CO2 26 24 - 32 mmol/L [facility] Anion Gap 10 0 - 15 mmol/L [facility] Calcium 7.9(A) 8.5 - 10.5 mg/dL [facility] 10/12/2001 6:20 AM EST [facility] Final Result [facility] [address] [place] [address] from Last 3 Months or Most Recently Relevant to Health Maintenance Insurance [facility] Address: [facility] [address] [place] [address] Care Teams Bilingual Legal Assistant Relationship Specialty Start Date End Date Larisa Whalen MD [address] [address] PCP - General Family Medicine 04/17/20
--- OUTSIDE RECORDS SUMMARY | 2025-03-07 09:22 | XMS_ITS | Continuity of Care Document ---
Author Organization [facility] Address [address] [place] [address] Phone [phone] Care Team Providers Care Pulmonary Disease Specialist Name Role Phone Larisa Whalen MD Care Team Information Pressure Test Operator [phone] Problems Active Problems Provider Date Absent kidney Lee Pritchett MD Onset: 03/29/20 19 Uncontrolled type 2 diabetes mellitus Lee nash MD Onset: 03/29/2019 Kidney stone Lee Pritchett MD Onset: 03/29/20 19 Family History Date Family Member(s) Observation Comments Mother Melanoma Social History Type Date Description Comments Sex Male Occupation Disabled ETOH Use Denies alcohol use Tobacco Use Start: Unknown Patient has never smoked Results Test Acquired Date Facility Test Result H/L Range N ote .Renal Panel 07/30/2020 [facility] [phone] .Albumin 3.9 .Calcium 9.2 .Carbon Dioxide 31.8 .Creatinine-LC 1.07 .Phosphorus 4.2 .Sodium 141 .BUN 22 .GFR-LC 60 .Potassium 4.9 .Ua 07/30/2020 [facility] [phone] Ua Appearance CLEAR Ua Bilirubin NEGATIVE Ua Blood NEGATIVE Ua Color LT YELLOW Ua Glucose NEGATIVE Ua Ketones NEGATIVE Ua Leuko NEGATIVE Ua Nitrite NEGATIVE Ua PH Test Strip 5.5 Ua Protein NEGATIVE Ua Urobilinogen 0.2 .Renal Panel 03/27/2019 [facility] [phone] .Albumin 4.0 .Calcium 9.0 .Carbon Dioxide 30.8 .Creatinine-LC 1.16 .Phosphorus 3.3 .Sodium 139 .BUN 15 .GFR-LC >60 .Potassium 4.2 .Ua 03/27/2019 [facility] [phone] Ua Appearance CLEAR Ua Bilirubin NEG Ua Blood NEG Ua Color LT YELLOW Ua Glucose NEG Ua Ketones NEG Ua Leuko NEG Ua Nitrite NEG Ua PH Test Strip 5.5 Ua Protein NEG Ua Source CLEAN CATCH Ua Specific Comerio >=1.030 Ua Urobilinogen 0.2 .Urine Protein/Creat . Random 03/27/2019 [facility] [phone] .Urine Protein Random 11.6 .Urine Creatini ne Random 195.54 .Urine Prot/Cre at Ratio 0.08 .BUN 01/01/2018 [facility] [phone] .BUN 20.0 .Creatinine-L C 01/01/2018 [facility] [phone] .Creatinine-LC 1.06 .GFR-LC 01/01/2018 [facility] [phone] .GFR-LC N/A Low 20 .Sodium 01/01/2018 [facility] [phone] .Sodium 137 .Potassium 01/01/2018 [facility] [phone] .Potassium 4.2 .Chloride 01/01/2018 [facility] [phone] .Chloride 100 .Carbon Dioxide 01/01/2018 [facility] [phone] .Carbon Dioxide 25 .Glucose Serum 01/01/2018 [facility] [phone] .Glucose Serum 130 .TSH 01/01/2018 [facility] [phone] .TSH 1.330 Encounters Type Date Location Provider Dx Diagnosis Office Visit 09/05/2020 10:00a [facility] Lee Pritchett MD Z90.5 Acquired absenc e of kidney E11.65 Type 2 diabetes rajat itus with hyperglycemia N20.0 Calculus of kidney C61 Malignant neoplasm o f prostate Office Visit 04/13/2019 9:40a [facility] [place] Z90.5 Acquired absence of kidney E11.65 Type 2 diabetes rajat itus with hyperglycemia N20.0 Calculus of kidney Office Visit 10/20/2018 11:00a [facility] Lee Pritchett MD Z90.5 Acquired absence of kidney E11.65 Type 2 diabetes rajat itus with hyperglycemia N20.0 Calculus of kidney Assessments Date Code Description Provider 09/05/2020 Z90.5 Acquired absence of kidney S alma Pritchett MD 09/05/2020 E11.65 Type 2 diabetes mellitus wit h hyperglycemia Lee Pritchett MD 09/05/2020 N20.0 Calculus of kidney Lee alamo MD 09/05/2020 C61 Malignant neoplasm of prosta te Lee Pritchett MD 04/13/2019 Z90.5 Acquired absence of kidney S alma Pritchett MD 04/13/2019 E11.65 Type 2 diabetes mellitus wit h hyperglycemia Lee Pritchett MD 04/13/2019 N20.0 Calculus of kidney Lee alamo MD 10/20/2018 Z90.5 Acquired absence of kidney S alma Pritchett MD 10/20/2018 E11.65 Type 2 diabetes mellitus wit h hyperglycemia Lee Pritchett MD 10/20/2018 N20.0 Calculus of kidney Lee alamo MD
--- OUTSIDE RECORDS SUMMARY | 2025-03-07 09:22 | XMS_ITS | Clinical Summary ---
Author Organization [facility] Address [address] [place] [address] Phone Care Team Providers Care Lead Php Developer Name Role Phone Unavailable Primary Care Provider [...]
[2025-03-07 09:52] LABS: Hematocrit 44.2 % (42.0-54.0); Hemoglobin 14.7 g/dL (14.0-18.0); Mean Corpuscular HGB Conc 33.3 g/dL (29.9-35.2); Mean Corpuscular Hemoglobin 30.1 pg (25.9-34.0); Mean Corpuscular Volume 90.4 fL (80.0-94.0); Platelet Count 173 10^3/uL (150-450); Red Blood Count 4.89 10^6/uL (4.70-6.10); White Blood Count 7.6 10^3/uL (4.0-11.0)
[2025-03-07 10:06] LABS: Albumin Level 3.8 g/dL (3.4-5.0); Anion Gap 15.2; Blood Urea Nitrogen 23.0 mg/dL (7.0-18.0); Calcium 9.4 mg/dL (8.5-10.1); Carbon Dioxide 27.2 mmol/L (21.0-32.0); Chloride 104 mmol/L (98-107); Estimated GFR (African America >60 (>=60 mL/min/1.73m^2); Estimated GFR (Non-African Ame 52 (>=60 mL/min/1.73m^2); Glucose 187 mg/dL (74-106); Magnesium 2.0 mg/dL (1.8-2.4); Potassium 4.4 mmol/L (3.5-5.1); Sodium 142 mmol/L (136-145); Uric Acid 6.1 mg/dL (3.5-7.2)
[2025-03-07 10:24] LABS: Total Protein Urine Random <6.0 mg/dL (<=11.9)
[2025-03-07 10:47] LABS: Glucose Urine UA NEGATIVE (NEGATIVE)
== END 2025-03-07 09:21 | disposition home or self-care (01) ==
LOC: LAB 09:20
PROVIDERS: PCP Family Medicine; Visit Provider Internal Medicine Nephrology
DX: N40.0 Benign prostatic hyperplasia without lower urinary tract symptoms (principal); E11.9 Type 2 diabetes mellitus without complications; N28.1 Cyst of kidney, acquired; M10.9 Gout, unspecified; E55.9 Vitamin D deficiency, unspecified; Z90.5 Acquired absence of kidney
CPT/HCPCS: 36415; 80069; 81003; 82043; 82306; 82570; 83735; 83970; 84156; 84550; 85027

== ENCOUNTER 2025-07-10 10:00 | Outpatient (OUT) | payer MEDICARE, OTHER, SELFPAY ==
--- OUTSIDE RECORDS SUMMARY | 2025-07-10 10:06 | XMS_ITS | CCD ---
Author Organization [facility] Inform ion Partnership [facility] Care Team Providers Care Head Cook Name Role Phone Unavailable Primary Care Provider Unavailtheodore e Natan Keyes Primary Care Provider Chuck Hamm Unavailable Karine Torres Unavailable Jenn Thomas Unavailable NATAN EKYES Primary Care Physician [phone] AKKINA, MARY Admitting Unavailable AKKINAlexis, MARY Attending [...] Provider MD Natan Keyes Primary Care Provider [phone] MD Chuck Hamm Attending Provider [phone] DO Goyo Mondragon Attending Provider [phone] MD Natan Keyes Primary Care Provider MD Jillian Edwards Attending Provider Natan Keyes MD Unavailable Natan Keyes MD Primary Care Provider Unavailable Primary Care Provider UnavailGOYO Jenkins Attending Unavailable JULIAN HEBERT Referring Unavailable GOYO VALLADARES Attending Unavailable GOYO VALLADARES Referring Unavailable Natan Keyes MD Primary Care Provider MD Natan Keyes Primary Care Provider RENAY Neal Attending Provider Natan Keyes MD Primary Care Provider [phone] Natan Keyes MD Attending Provider Irina Ann MD Referring Provider [phone] Subha Neal Attending Unavailable Subha Neal Admitting Unavailable Natan Keyes Primary Care Unavailable Irina Ann Referring Unavailable Natan Keyes Attending Unavailable Natan Keyes Primary Care Unavailable Natan Keyes M Admitting Unavailable NATAN KEYES Primary Care Unavailable Stanley BECK Referring Unavailable Stanley BECK Attending Unavailable Natan Kyees MD Primary Care Unavailable Paulo PACShaun Attending Unavailable Shaun Jung Admitting Unavailable Natan Keyes MD Primary Care Provider Jillian Edwards MD Attending Provider January Chery Unavailable Bernardo RODGERS Attending Unavailable Bernardo RODGERS Attending Unavailable JENNIFFER SAUNDERS Attending Unavailable LEONIE VALLADARES Attending Unavailable NATAN KEYES Attending Unavailable MERRILL MCRAE Attending Unavailable NATAN KEYES Attending Unavailable ZEKE ALDRICH Attending Unavailable YAS PROCTOR Attending Unavailable YAS PROCTOR Referring Unavailable NATAN KEYES M Attending Unavailable MARILYN OCHOA Attending Unavailable NATAN KEYES M Referring Unavailable PINO ERIC Attending Unavailable STEPHY, RUGEN M Referring Unavailable BRINK, PINO Attending Unavailable STEPHY, RUGEN M Referring Unavailable BRINK, PINO Attending Unavailable STEPHY, RUGEN M Referring Unavailable BRINK, PINO Attending Unavailable STEPHY, RUGEN M Referring Unavailable BRINK, PINO Attending Unavailable STEPHY, RUGEN M Referring Unavailable BRINK, PINO Attending Unavailable STEPHY, RUGEN M Referring Unavailable BRINK, PINO Attending Unavailable STEPHY, RUGEN M Referring Unavailable OCHOAMARILYN Attending Unavailable STEPHY, RUGEN M Referring Unavailable KEVINCHARLY Attending Unavailable STEPHY, RUGEN M Referring Unavailable BRINK, PINO Attending Unavailable STEPHY, RUGEN M Referring Unavailable BRINK, PINO Attending Unavailable STEPHY, RUGEN M Referring Unavailable BLACKSTONELICIA Attending Unavailable HEMMER, DANYA M Referring Unavailable BRINK, PINO Attending Unavailable HEMMER, DANYA M Referring Unavailable BRINK, PINO Attending Unavailable HEMMER, DANYA M Referring Unavailable STEPHY, RUGRAKESH M Attending Unavailable BRINK, PINO Attending Unavailable HEMMER, DANYA M Referring Unavailable CHARLY BROWN Attending Unavailable HEMMER, DANYA M Referring Unavailable BRINK, PINO Attending Unavailable HEMMER, DANYA M Referring Unavailable OCHOAMARILYN Attending Unavailable HEMMER, DANYA M Referring Unavailable BRINK, PINO Attending Unavailable HEMMER, DANYA M Referring Unavailable STEPHY, RUGEN M Attending Unavailable WANDA CHINO Attending Unavailable STEPHY, RUGEN M Attending Unavailable MERRILL MCRAE Attending Unavailable Eliza January HEIN Unavailable Allergies Allergy ClassificationReported Allergen(s)Allergy TypeDate of OnsetReaction(s) Facility (13 sources)Grass Mix Pollens Allergen ExtDrug allergyUnknoDeaconess Incarnate Word [facility]ll[facility] Other (20 sources)OtherAllergy to whofsxopc87-65-0686[facility] (20 sources)Wound Dressing AdhesiveDrug Mgueqcb21-91-7145SxiafmlTZUE Healthcare (2 sources)Grass pollenDrug allergy (disorder)82-36-4304MlkgozlkSyvisqrxcWVUMedicine [facility] (1 source)Grass; Translations: [Grass]Propensity to adverse reactions (disorder) [facility] Repository (3 sources)Grass pollenDrug Kizbsca79-37-8422[facility] Medications Current Medications MedicationDrug Class(es)DatesSig (Normalized)Sig (Original)0.4 ML cyclosporine 0.5 MG/ML Ophthalmic Suspension [Restasis] (1 source)Start: 47-74-1203xmhf 1 drop(s) into the eye(s) twice dailyRestasis 0.05% Emulsion INSTILL 1 DROP INTO BOTH EYES TWICE A DAY Start Date: 05/19/21 Status: Orderedacetaminophen 325 mg / oxyCODONE hydrochloride 5 mg oral tablet (1 source)Opioid AgonistPercocet 5-325 MG 1 tablet as needed Orally as needed [id number] 200 actuat albuterol 0.09 mg/actuat metered dose inhaler (20 sources)beta2-Adrenergic AgonistStart: 94-60-4239pzkz 2 puff(s) by mouth four times daily as neededalbuterol HFA 90 mcg/act inhaler INHALE 2 PUFFS BY MOUTH 4 TIMES A DAY NEEDED 02/27/2023 ActiveStart: 45-56-2944ixjf 2 puff(s) by inhalation four times daily as neededalbuterol 90 mcg/actuation inhaler Inhale 2 puffs 4 times a day as needed. 0 02/27/2023 ActiveStart: 46-73-0142lesw 2 puff(s) by inhalation four times daily as neededAlbuterol Sulfate HFA 108 (90 Base) MCG/ACT 2 puffs Inhalation 4 times a day prn Feb, Active allopurinol 100 mg oral tablet (20 sources)Xanthine Oxidase InhibitorStart: 11-55-0525bakc 1 tablet by mouth once dailyallopurinol (Zyloprim) 100 MG tablet Indications: Acute gout, unspecified cause, unspecified site TAKE 1 TABLET BY MOUTH EVERY DAY 100 tablet 3 11/10/2024 ActiveStart: 59-60-7765dojk 2 tablets by mouth once daily allopurinol (Zyloprim) 100 MG tablet Indications: Acute gout, unspecified cause, unspecified site Take 2 tablets (200 mg) by mouth Daily 90 tablet 10/12/2024 ActiveStart: 13-01-2248mocz 2 tablets by mouth once dailyallopurinol (Zyloprim) 100 MG tablet Indications: Acute gout, unspecified cause, unspecified site Take 2 tablets (200 mg) by mouth Daily 90 tablet 10/12/2024 ActiveStart: 05-19-2021 End: 97-94-4875khwm 1 tablet by mouth once dailyallopurinol (Zyloprim) 100 MG tablet Indications: Acute gout, unspecified cause, unspecified site TAKE 1 TABLET BY MOUTH EVERY DAY 100 tablet 3 11/10/2024 Activeamoxicillin 875 mg / clavulanate 125 mg oral tablet (2 sources)Penicillin-class AntibacterialStart: 98-93-5220bowh 1 tablet by mouth every twelve hoursAmoxicillin-Pot Clavulanate 875-125 MG 1 tablet Orally every 12 hrs for 10 day(s) Feb, Activeascorbic acid 100 mg oral tablet (20 sources)Vitamin Ctake 1 tablet by mouth once dailyAscorbic Acid (vitamin C) 100 MG tablet Take 100 mg by mouth Daily Activeaspirin 81 mg delayed release oral tablet (20 sources)Platelet Aggregation Inhibitor, Nonsteroidal Anti-inflammatory Drug Start: 09-19-2024 End: 19-83-3517xzcz 1 tablet by mouth once dailyaspirin 81 MG EC tablet Indications: TIA (transient ischemic attack) , Subcortical microvascular isc hemic occlusive disease Take 1 tablet (81 mg) by mouth Daily 09/19/2024 09/19/2025 Activeatorvastatin 40 mg oral tablet (20 sources)HMG-CoA Reductase InhibitorStart: 08-14-2024 End: 31-27-6570rfkb 1 tablet by mouth once dailyatorvastatin (Lipitor) 40 MG tablet Indications: Type 2 diabetes mellitus with stage 3a chronic kidney disease, without long-term current use of insulin (HCC) , Other chest pain Take 1 tablet (40 mg)by mouth Daily 30 tablet 11 08/14/2024 08/14/2025 ActiveStart: 07-05-2023 End: 52-47-5098sbwf 1 tablet by mouth in the morningatorvastatin (Lipitor) 20 MG tablet Indications: Type 2 diabetes mellitus with stage 3a chronic kidney disease, without long-term current use of insulin (HCC) ([facility]/HCC) Take 1 tablet (20 mg) by mouthin the morning. 100 tablet 3 11/01/2023 08/14/2024 Discontinued (Side effects)baclofen 10 mg oral tablet (20 sources)gamma-Aminobutyric Acid-ergic Agonistbaclofen (Lioresal) 10 MG tablet every 8 (eight) hours. Activebenzonatate 200 mg oral capsule (2 sources)Non-narcotic AntitussiveStart: 12-82-3302wiqn 1 capsule by mouth every eight hoursBenzonatate 200 MG 1 capsule Orally Three times a day Feb, ActiveCalcium (6 sources)Phosphate Binder, CalciumCalcium Activecholecalciferol 0.025 mg oral tablet (20 sources)Vitamin DStart: 95-51-0740buhh 1 tablet by mouth once dailycalcium (as carbonate)-vitamin D 90 mg-25 mcg (1000 intl units) oral tablet tab(s), Oral, Daily, Refill(s) 0 Start Date: 06/24/20 Status: Ordered Repeat number: 1 Start: 21-61-7584pska 1 tablet by mouth once dailycalcium (as carbonate)-vitamin D 90 mg-25 mcg (1000 intl units) oral tablet tab(s), Oral, Daily, Refill(s) 0 Start Date: 06/24/20 Status: Orderedcholecalciferol (Vitamin D-3) 50 MCG (2000 UT) capsule Take by mouth. ActiveComment on above:Take by mouth.Continuous Blood Gluc Sensor (FreeStyle Mayito 2 Sensor) [facility] ([facility] sources)Start: 62-09-3919Mzfgbbfbdk Blood Gluc Sensor (FreeStyle [place] 2 Sensor) [facility] [place]ications: Type 2 diabetes mellitus without complication, without long-term current use of insulin (CMS/HCC) CHANGE EVERY 2 WEEKS DIRECTED 2 each 5 08/03/2023 ActiveContinuous Glucose Rhic Systems Safety Engineer (FreeStyle Mayito 2 [place]) device (20 sources)Start: 57-90-6107Kogfbbrtln Glucose Rhic Systems Safety Engineer (FreeStyle Mayito 2 [place]) device Indications: Type 2 diabetes mellituswith chronic kidney disease, with long-term current use of insulin, unspecified CKD stage (HCC) 1 Device Daily 1 each 09/28/2024 ActiveStart: 35-02-2541Toexggvdui Glucose Rhic Systems Safety Engineer (FreeStyle Mayito 2 [place]) device Indications: Type 2 diabetes mellituswith chronic kidney disease, with long-term current use of insulin, unspecified CKD stage (CMS/HCC)1 Device Daily 1 each 09/28/2024 ActiveContinuous Glucose Sensor (FreeStyle Mayito 2 Plus Sensor) misc (5 sources)Start: 99-57-9503Iawxfpeqib Glucose Sensor (FreeStyle Mayito 2 Plus Sensor) misc Indications: Type 2 diabetes mellitus with chronic kidney disease, with long-term current use of insulin, unspecified CKD stage (HCC) 1 Device every 14 (fourteen) days 6 each 3 06/11/2025 ActiveStart: 04-26-2025 End: 01-27-7516Rleeovpnzt Glucose Sensor (FreeStyle Mayito 2 Plus Sensor) misc Indications: Type 2 diabetes mellitus with chronic kidney disease, with long- term current use of insulin, unspecified CKD stage (HCC) 1 Device every 14 (fourteen) days 6 each 3 04/26/2025 06/11/2025 Discontinued (Reorder)Start: 75-84-9380Jioyotiuhl Glucose Sensor (FreeStyle Mayito 2 Plus Sensor) misc Indications: Type 2 diabetes mellitus with chronic kidney disease, with long- term current use of insulin, unspecified CKD stage (HCC) 1 Device every 14 (fourteen) days 6 each 3 04/26/2025 ActiveContinuous Glucose Sensor (FreeStyle Mayito 2 Sensor) misc (20 sources)Start: 18-91-7514Igetmrvefh Glucose Sensor (FreeStyle Mayito 2 Sensor) misc Indications: Type 2 diabetes mellitus without complication, without long-term current use of insulin (HCC) CHANGE EVERY 2 WEEKS DIRECTED 6each 3 02/22/2025 ActiveStart: 49-54-8271Uuazqvzssh Glucose Sensor (FreeStyle Mayito 2 Sensor) misc Indications: Type 2 diabetes mellitus without complication, without long-term current use of insulin (HCC) CHANGE EVERY 2 WEEKS DIRECTED 2each 2 09/25/2024 ActiveStart: 65-27-4247Rfuapxewnf Glucose Sensor (FreeStyle Mayito 2 Sensor) misc Indications: Type 2 diabetes mellitus without complication, without long-term current use of insulin CHANGE EVERY 2 WEEKS DIRECTED 2 each 2 09/25/2024 ActiveStart: 34-16-3271Nxxpbiohhx Glucose Sensor (FreeStyle Mayito 2 Sensor) misc Indications: Type 2 diabetes mellitus without complication, without long-term current use of insulin (CMS/HCC) CHANGE EVERY 2 WEEKS DIRECTED 2 each 2 09/25/2024 ActiveStart: 04-85-6251Gwurkmunmd Glucose Sensor (FreeStyle Mayito 2 Sensor) misc Indications: Type 2 diabetes mellitus without complication, without long-term current use of insulin (CMS/HCC) CHANGE EVERY 2 WEEKS DIRECTED 2 each 2 09/04/2024 Activediclofenac sodium 50 mg delayed release oral tablet (16 sources)Nonsteroidal Anti-inflammatory DrugStart: 83-02-5782lsguzfafbp (Voltaren) 50 MG EC tablet Take 50 mg by mouth every 12 (twelve) hours if needed 03/02/2025 ActivediphenhydrAMINE (4 sources)Histamine-1 Receptor Antagonistdiphenhydramine HCl (BENADRYL ALLERGY ORAL) Take by mouth. Activediphenhydramine HCl (BENADRYL ALLERGY ORAL) Take by mouth. 0 ActiveComment on above:Take by mouth.Loperamide (4 sources)Opioid Agonistloperamide HCl (IMODIUM ORAL) Take by mouth as needed. Activeloperamide HCl (IMODIUM ORAL) Take by mouth as needed. 0 ActiveComment on above:Take by mouth as needed.loteprednol etabonate 2 mg/ml ophthalmic suspension (20 sources)Start: 84-71-9667vdty 1 drop(s) into the eye(s) twice daily Loteprednol Etabonate (Alrex) 0.2 % drops,suspension Active 1 DROPS OPHTHALMIC Twice daily March 15, 2024 12:00am Complies with drug therapyStart: 01-04-2024 take 1 drop(s) into the eye(s) in the morningAlrex 0.2 % suspension ophthalmic suspension Administer 1 drop into both eyes in the morning and 1 drop before bedtime. 01/04/2024 ActivemetFORMIN hydrochloride 500 mg oral tablet (20 sources)BiguanideStart: 07-11-9711asvx 1 tablet by mouth at mealtime metFORMIN (Glucophage) 500 MG tablet Indications: Type 2 diabetes mellitus without complications (HCC) TAKE 1 TABLET (500 MG) BY MOUTH IN THE MORNING AND IN THE EVENING WITH MEALS 180 tablet 4 06/05/2024 ActiveStart: 78-89-9790xlvy 1 tablet by mouth twice daily at mealtimemetformin 500 mg oral tablet TAKE 1 TABLET BY MOUTH TWICE A DAY WITH A MEAL Start Date: 05/19/21 Status: Ordered Repeat number: 1Comment on above:Take 500 mg by mouth daily with breakfast. olopatadine 2 mg/ml ophthalmic solution (7 sources)Histamine-1 Receptor InhibitorStart: 60-42-9419Tujcttd Once Daily Relief 0.2% ophthalmic solution Refill(s) 0 Start Date: 03/12/23 Status: Ordered Repeat number: 1Start: 01-58-4823zvekfoelhos (Pataday) 0.2 % ophthalmic solution Administer into affected eye(s) once every 24 hours. 0 02/27/2023 ActiveStart: 02-89-8143absk 1 drop(s) into the eye(s) once dailyPataday 0.2 % 1 drop into affected eye each eye Once a day for 7 days Feb, Activemicroencapsulated potassium chloride 20 meq extended release oral tablet (20 sources)Start: 87-26-6855vcmn 1 tablet by mouth once dailyKLOR-CON 20 MEQ ER tablet Take 20 mEq by mouth Daily 06/14/2024 ActiveStart: 03-15-2024 End: 59-95-0641dcwb 1 tablet by mouth once dailyKLOR-CON 20 MEQ ER tablet Take 20 mEq by mouth Daily 06/14/2024 Activepotassium phosphate 155 mg / sodium phosphate, dibasic 852 mg / sodium phosphate, monobasic 130 mg oral tablet (20 sources)Start: 13-78-0108tvcx 1 tablet by mouth in the morning, then take 1 tablet by mouth in the evening, then take 1 tablet by mouth at bedtimeK Phos Kemper-Sod Phos Di & Kemper (Phospha 250 Neutral) 155-852-130 MG tablet Take 1 tablet by mouth in the morning and 1 tablet in the evening and 1 tablet before bedtime. 01/20/2023 ActiveSITagliptin 100 mg oral tablet (20 sources)Dipeptidyl Peptidase 4 InhibitorStart: 44-90-6952Cvkjqyo Oral, Daily, Refill(s) 0 Start Date: 03/09/22 Status: OrderedStart: 10-16-2021 End: 16-94-0805lymv 1 tablet by mouth in the morningSITagliptin (Januvia) 100 MG tablet Indications: Type 2 diabetes mellitus without complication, without long-term current use of insulin (HCC) Take 1 tablet (100 mg) by mouth in the morning. 100 tablet 4 08/14/2024 ActiveJanuvia ActiveComment on above:TAKE 1 TABLET BY MOUTH EVERY DAY FOR 30 DAYStamsulosin hydrochloride 0.4 mg oral capsule (17 sources)alpha-Adrenergic BlockerStart: 76-78-2669lihe 1 capsule by mouth once daily at bedtimetamsulosin 0.4 mg Cap 0.4 mg = 1 cap(s), Oral, Daily, TAKE 1 CAPSULE BY MOUTH EVERYDAY AT BEDTIME, # 30 cap(s), Refills(s) 3, Pharmacy: [facility]/pharmacy #[id number], 172, cm, 03/10/24 10:51:00 EDT, Height/Length Dosing, 93, kg, 03/10/24 10:51:00 EDT, Weight Dosing Start Date: 03/21/25 Status: Ordered Quantity: 30.0 Unit: cap(s) Repeat number: 4Start: 78-64-3019pxqa 1 capsule by mouth every twenty-four hourstamsulosin (Flomax) 0.4 MG 24 hr capsule Take 0.4 mg by mouth 02/23/2025 ActiveStart: 02-13-2025 End: 09-38-2226kmsa 1 capsule by mouth once dailytamsulosin (Flomax) 0.4 MG 24 hr capsule Indications: Benign prostatic hyperplasia with urinary obstruction Take 1 capsule (0.4 mg) by mouth Daily 30 capsule 3 02/13/2025 03/06/2025 Discontinued (Other)Start: 12-02-2020 End: 54-63-8349okdj 1 capsule by mouth once daily at bedtimetamsulosin 0.4 mg Cap TAKE 1 CAPSULE BY MOUTH EVERYDAY AT BEDTIME Start Date: 05/19/21 Status: OrderedComment on above:Take 1 capsule by mouth daily at bedtime.tiZANidine 4 mg oral tablet (7 sources)Central alpha-2 Adrenergic AgonistStart: 50-89-6729ngZQUbfapb 4 mg Tab TAKE 1/2 1 TABLET BY MOUTH TWICE A DAY NEEDED Start Date: 05/19/21 Status: OrderedVitamin D3 (6 sources)Vitamin D3 Active Completed/Discontinued Medications MedicationDrug Class(es)DatesSig (Normalized)Sig (Original)acetaminophen 325 mg / HYDROcodone bitartrate 5 mg oral tablet (20 sources)Opioid Agonist End: 11-45-5745hbdm 1-2 tablets by mouth three times daily as neededHYDROcodone- acetaminophen ([place]) 5-325 MG tablet TAKE 1-2 TABLET BY MOUTH THREE TIMES DAILY NEEDED 03/06/2025 Discontinued (Other)amoxicillin 875 mg oral tablet (5 sources)Penicillin-class AntibacterialStart: 01-24-2024 End: 98-38-1590ilap 1 tablet by mouth every twelve hoursAmoxicillin 875 mg tablet Discontinued 875 MG PO Every 12 hours 14 7 January 24, 2024 12:00am March 15, 2024 9:15amazithromycin 250 mg oral tablet (8 sources)Macrolide AntimicrobialStart: 50-02-6071fwqe 1 tablet by mouth once dailyZITHROMAX TABLET 250MG PO Take one(1) tablet daily. 4 0 10/14/2001 Active Comment on above:Take one(1) tablet daily.colchicine 0.6 mg oral tablet (20 sources)Start: 11-23-2024 End: 08-32-4472nxxptdarzu 0.6 MG tablet Indications: Great toe pain, right , Hx of gout 2 tabs (1.2mg) x1 then 1 tab (0.6mg) x1 1 hour later. 3 tablet 11 11/23/2024 03/06/2025 Discontinued (Other)dexamethasone 0.001 mg/mg / neomycin 0.0035 mg/mg / polymyxin b 10 unt/mg ophthalmic ointment (2 sources)Aminoglycoside Antibacterial, Polymyxin-class Antibacterial, CorticosteroidStart: 08-18-2024 End: 22-66-0430Bzhpjbft-Polymyxin B-Dexameth 3.5 mg/g-10,000 unit/g-0.1 % ointment Discontinued 1 APPLIC OPHTHALMIC Twice daily August 18, 2024 1:00am March 14, 2025 9:14amfamotidine 20 mg oral tablet (8 sources)Histamine-2 Receptor AntagonistStart: 83-82-1996vdor 1 tablet by mouth once dailyPEPCID TABLET 20MG PO Indications: Abdominal pain, unspecified site , Constipation , Esophageal reflux Take one(1) tablet daily. 30 3 10/14/2001 ActiveComment on above:Take one(1) tablet daily.methylPREDNISolone (7 sources)CorticosteroidStart: 10-03-2024 End: 05-41-8994vvhjynBSFJLMYkppaf (Medrol Dospak) 4 MG tablets Indications: Acute gout of right foot, unspecified cause Follow schedule on MEDROL PACK package instructions to be used as directed 21 tablet 10/03/2024 11/23/2024 DiscontinuedStart: 31-01-6284lfyuukSRSOMQYprbyz (Medrol Dospak) 4 MG tablets Indications: Acute gout of right foot, unspecified cause Follow schedule on MEDROL PACK package instructions to be used as directed 21 tablet 10/03/2024 Activenaproxen 500 mg oral tablet (5 sources)Nonsteroidal Anti-inflammatory DrugStart: 01-24-2024 End: 96-46-5487aldg 1 tablet by mouth once dailyNaproxen 500 mg tablet Discontinued 500 MG PO Daily January 24, 2024 12:00am March 15, 2024 9:15am predniSONE 10 mg oral tablet (20 sources)Start: 11-23-2024 End: 72-46-2515whigvgBDPD (Deltasone) 10 MG tablet Indications: Great toe pain, right , Hx of gout 4 tabs daily x2days, then 3 tabs daily x2 days, then 2 tabs daily x2 days, then 1 tab daily x2 days Do not take with colchicine. Only start if gout flare not controlled with colchicine regimen. 20 tablet 11/23/2024 03/06/2025 Discontinued (Other)Start: 08-18-2024 End: 81-21-2325Bmequynhiq 20 mg tablet Discontinued 20 MG PO .COMPLEX 12 August 18, 2024 1:00am March 14, 2025 9:14am Take 2 tabs po daily x 4 days, then take 1 tab x 4 daystraMADol hydrochloride 50 mg oral tablet (5 sources)Opioid AgonistStart: 01-24-2024 End: 32-01-2948mzqp 1 tablet by mouth once dailyTramadol 50 mg tablet Discontinued 50 MG PO Daily January 24, 2024 12:00am March 15, 2024 9:15am triamcinolone acetonide 1 mg/ml topical cream (20 sources)CorticosteroidStart: 09-27-2023 End: 92-49-3625qghcbgwoptnxs (Kenalog) 0.1 % cream Indications: Other atopic dermatitis Apply to affected areas, up to twice a day when flared, do not use one the face, groin, or underarms, 30 day supply 454 g 11 09/27/2023 03/06/2025 Discontinued (Other) Problems Active Problems Problem ClassificationProblemDateDocumented DateEpisodic/ChronicCancer of prostate (20 sources)Malignant tumor of prostate; Translations: [Malignant neoplasm of prostate]Onset: 167506-62-7491TvyojicRzkjjlb kidney disease (20 sources)Chronic kidney disease stage 2; Translations: [Chronic kidney disease, stage 2 (mild)]Onset: 09-91-6385ZwpolizReovpot obstructive pulmonary disease and bronchiectasis (1 source)Bronchitis, not specified as acute or chronicEpisodicDelirium, dementia, and amnestic and other cognitive disorders (2 sources)Age-related cognitive decline; Translations: [Age-related cognitive decline]38-73-8002CkmocklZlvkokae mellitus with complications (20 sources)Type 2 diabetes mellitus; Translations: [Type 2 diabetes mellitus with diabetic chronic kidney disease]Onset: 292660-45-1421QwlabpaQvpgodox mellitus without complication (20 sources)Diabetes mellitus; Translations: [Type 2 diabetes mellitus in nonobese]Onset: 416637-57-7812PsmeixlTeymelnzf of lipid metabolism (20 sources)Hypertriglyceridemia; Translations: [Pure hyperglyceridemia]Onset: 967460-28-1363EqhpxsnQfdmhfrjq hypertension (20 sources)Benign essential hypertension; Translations: [Essential (primary) hypertension]Onset: 952463-88-7014ZwnxctwFbzi and other crystal arthropathies (20 sources)Gouty arthritis of toe; Translations: [Gout, unspecified]Onset: 176253-96-7024LcngcdlAjtfogodixs of prostate (20 sources)Benign prostatic hypertrophy with outflow obstruction; Translations: [Benign prostatic hyperplasia with lower urinary tract symptoms]Onset: 39-57-5612FxcispeQgomsexlrfjn with complications and secondary hypertension (11 sources)Hypertensive chronic kidney disease with stage 1 through stage 4 chronic kidney disease, or unspecified chronic kidney disease; Translations: [Chronic kidney disease due to hypertension]ChronicImmunizations and screening for infectious disease (3 sources)Contact with and (suspected) exposure to other viral communicable diseases; Translations: [Contact with and (suspected) exposure to other viral communicable diseases Z20.828]Onset: 05-23-2021 Resolved: 49-64-3490MzigiaofJyqqrhvrlien; infection of eye (except that caused by tuberculosis or sexually transmitteddisease) (1 source)Acute atopic conjunctivitis, bilateralEpisodicJoint disorders and dislocations; trauma-related (20 sources)Derangement of right knee; Translations: [Unspecified internal derangement of right knee]Onset: 634756-80-2548DfdrjgdPzdhhoj and fatigue (20 sources)Fatigue; Translations: [Chronic fatigue, unspecified]Onset: 710411-46-1093MopqavvHcutlleko of skin (20 sources)Malignant melanoma of back; Translations: [Malignant melanoma of other part of trunk]Onset: 081268-57-6424YmyzfmvTzpsqhi (2 sources)Pain in toe; Translations: [Tinea unguium]51-20-3394Puawqrfl Nutritional deficiencies (18 sources)Vitamin D deficiency; Translations: [Vitamin D deficiency, unspecified]Onset: 33-68-3566JmokgcyTiqfzwqaw or stenosis of precerebral arteries (20 sources)Bilateral stenosis of carotid arteries; Translations: [Occlusion and stenosis of bilateral carotid arteries]Onset: 566120-79-3618TeqsflvTdmyl acquired deformities (2 sources)Contracture of joint of left ankle; Translations: [Contracture, left ankle]39-40-5831TalasexBjurl aftercare (1 source)Other skilled nursing (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 therapy; Translations: [OTH 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 INSTRUCTOR CURRENT DRUG THERAPY]Onset: 24-87-6821AyfccsgaLuycj aftercare (2 sources)Follow-up status; Translations: [Encounter for change or removal of nonsurgical wound dressing]Onset: 201679-25-0623NcqhlvbvOgvhu aftercare (1 source)Encounter for change or removal of nonsurgical wound dressing; Translations: [Encounter for change or removal of nonsurgical wound dressing] Onset: 67-61-5345EjqioslpFofqv and ill-defined cerebrovascular disease (2 sources)Cerebrovascular disease; Translations: [Cerebral ischemia]09-19-2024 ChronicOther connective tissue disease (1 source)Other muscle spasm; Translations: [OTHER MUSCLE SPASM]Onset: 14-37-6876OorivihaRvbep connective tissue disease (2 sources)Personal history of other diseases of the musculoskeletal system and connective tissueEpisodicOther connective tissue disease (2 sources)Plantar fasciitis; Translations: [Plantar fascial fibromatosis] 38-66-6905FetsevfhNlkbj connective tissue disease (3 sources)Pain in hallux; Translations: [Pain in right toe(s)]11-23-2024 EpisodicOther connective tissue disease (3 sources)H/O: gout; Translations: [Personal history of other diseases of the musculoskeletal system and connective tissue]47-97-0295JwsxchavBcnai connective tissue disease (12 sources)Spasm of cervical paraspinous muscle; Translations: [Other muscle spasm]Onset: 569307-44-4390TlswohtmFrvlh connective tissue disease (1 source)Pain in right oainq32-79-2619SmtzhgnwCanvw diseases of kidney and ureters (4 sources)Cyst of kidney, acquired; Translations: [Cystic kidney disease, unspecified]EpisodicOther diseases of kidney and ureters (6 sources)Cyst of kidney; Translations: [Cyst of kidney, acquired]Onset: 162528-26-6484HlwgkkxwBioft nervous system disorders (13 sources)Chronic pain; Translations: [Other chronic pain]ChronicOther nervous system disorders (3 sources)Other chronic painOnset: 10-17-2021 Resolved: 17-15-3393SvkgfbyHgxwh nervous system disorders (20 sources)Disorder of muscle; Translations: [Myopathy, unspecified]Onset: 777447-43-0875YvskbvnIytrm nutritional; endocrine; and metabolic disorders (5 sources)Hypophosphatemia; Translations: [Other disorders of phosphorus metabolism]ChronicOther nutritional; endocrine; and metabolic disorders (3 sources)Other disorders of phosphorus metabolismChronicOther nutritional; endocrine; and metabolic disorders (20 sources)Cholesterol level - finding; Translations: [Lipoprotein deficiency] Onset: 920125-62-0496UbegliyJgpez nutritional; endocrine; and metabolic disorders (20 sources)Lipoprotein deficiency disorder; Translations: [Lipoprotein deficiency]Onset: 372697-24-1684MbvamhpRzhfb skin disorders (4 sources)Seborrheic keratosis; Translations: [Other seborrheic keratosis] 17-97-0723VijqtlvkCdssb skin disorders (4 sources)Lentiginosis; Translations: [Other melanin hyperpigmentation] 46-47-1610HrlawldfQeawe skin disorders (4 sources)Actinic keratosis; Translations: [Actinic keratosis]07-18-2024 EpisodicOther upper respiratory infections (5 sources)Acute upper respiratory infection, unspecified; Translations: [Acute pharyngitis, unspecified]Onset: 05-23-2021 Resolved: 56-24-4293SzihscdtOjxbjf media and related conditions (7 sources)Otitis media of right ear; Translations: [Otitis media, unspecified, right ear]08-30-5170XuappyjbMrvvaxkw codes; unclassified (4 sources)Left kidney ktgmyh17-24-8258ElujdeqbOazrootn codes; unclassified (5 sources)Acquired absence of kidney; Translations: [Acquired absence of kidney]EpisodicSpondylosis; intervertebral disc disorders; other back problems (20 sources)Prolapsed lumbar intervertebral disc; Translations: [Other intervertebral disc displacement, lumbarregion]Onset: 04-18-2021 Resolved: 71-67-4932UultrrpZvcmmmcqr cerebral ischemia (20 sources)Transient cerebral ischemia; Translations: [Transient cerebral ischemic attack, unspecified]Onset: 332796-39-8143CleecugKgfhbodcpzcx (3 sources)CONTACT W/AND (SUSP) EXPOS COVID-19; Translations: [CONTACT W/AND (SUSP) EXPOS COVID-19]Onset: 06-20-2021 Past or Other Problems Problem ClassificationProblemDateDocumented DateEpisodic/ChronicAbdominal pain (20 sources)Flank pain; Translations: [Unspecified abdominal pain]Onset: 614013-26-4772ZfavvehbNgsjjrib reactions (2 sources)Allergic contact dermatitis caused by plant material; Translations: [Allergic contact dermatitis due to plants, except food]34-33-4283Btambgcl Calculus of urinary tract (20 sources)History of calculus of kidney; Translations: [Personal history of urinary calculi]Onset: 843665-48-6437BlozyryvJdrfek of prostate (20 sources)Personal history of malignant neoplasm of prostate; Translations: [History of malignant neoplasm ofprostate]Onset: 88-26-0827VhjgeejfPsuuiodoozcjz symptoms and ill-defined conditions (20 sources)Dysuria; Translations: [Microscopic hematuria]Onset: 03-18-2023 32-00-7652UnziglecAbvxffgxcvgc conditions of male genital organs (20 sources)Prostatitis; Translations: [Inflammatory disease of prostate, unspecified]Onset: 903977-56-4145RunxrozeUuzyyqtew of skin (20 sources)History of malignant melanoma of the skin; Translations: [Personal history of malignant melanoma ofskin]Onset: 227182-51-7805Alwtlyud Neoplasms of unspecified nature or uncertain behavior (2 sources)Neoplastic disease; Translations: [Neoplasm of unspecified behavior of bone, soft tissue, and skin]84-87-4123PlydoojkLmlyyauyyik chest pain (20 sources)Chest pain; Translations: [Other chest pain]Onset: 08-14-2024 23-34-3585MbrhgiepUyvez connective tissue disease (20 sources)Triggering of digit; Translations: [Trigger finger, right index finger]Onset: 239995-20-0734NqvfuacrWhmmi connective tissue disease (20 sources)Acquired trigger finger; Translations: [Trigger finger, unspecified finger]Onset: 854178-04-6720RkdxdcqkOpxbs connective tissue disease (20 sources)Heel pain; Translations: [Pain in left foot]Onset: 03-23-2023 77-88-8871ApsmunssHplya connective tissue disease (20 sources)Calcaneal spur of left foot; Translations: [Calcaneal spur, left foot]Onset: 153756-71-0716VubyuletEuule connective tissue disease (20 sources)Muscle pain; Translations: [Myalgia, unspecified site]Onset: 571226-90-6715KlsjxqrbMhugr gastrointestinal disorders (20 sources)Constipation; Translations: [Constipation, unspecified]Onset: 341583-66-0292JescfeshFcidm gastrointestinal disorders (20 sources)Dysphagia; Translations: [Dysphagia, unspecified]Onset: 02-15-2023 11-34-2724ErirrdrtFtcha lower respiratory disease (20 sources)Dyspnea; Translations: [Shortness of breath]Onset: 09-19-2024 14-93-7200ZnlhqaotSzjyd nervous system disorders (2 sources)Impairment of balance; Translations: [Other abnormalities of gait and mobility]03-64-2879JewezggpPsyfi screening for suspected conditions (not mental disorders or infectious disease) (20 sources)Raised prostate specific antigen; Translations: [Elevated prostate specific antigen [PSA]]Onset: 006737-58-1726FxktrqhgZmpnf skin disorders (2 sources)Inflamed seborrheic keratosis; Translations: [Inflamed seborrheic keratosis]21-19-4793BsqcoibwQyzxi skin disorders (20 sources)Ingrowing great toenail; Translations: [Ingrowing nail]Onset: 588697-60-8209IcuedbevCihnnirc codes; unclassified (20 sources)Absent kidney; Translations: [Acquired absence of kidney]Onset: 860220-86-4307DivnxzraXpntxmrq codes; unclassified (20 sources)History of nephrectomy; Translations: [Acquired absence of kidney] Onset: 910922-20-4036DwosvnaiRlyxbzde codes; unclassified (3 sources)Transient alteration of awareness; Translations: [Transient alteration of awareness]Onset: 470467-90-7814HlwrmxftNalehsjf codes; unclassified (2 sources)Forgetful; Translations: [Other general symptoms and signs]04-27-2024 EpisodicScreening and history of mental health and substance abuse codes (20 sources)Ex-smoker; Translations: [Personal history of nicotine dependence] Onset: 642713-67-3083ApymjmhdAkjbzmnxnst; intervertebral disc disorders; other back problems (20 sources)Lumbar radiculopathy; Translations: [Radiculopathy, lumbar region] Onset: 03-05-2020 Resolved: 20-24-5951BuxmjojtWulzpoljuyue (1 source)Contact with and (suspected) exposure to covid-19 Z20.822Onset: 02-28-2022 Resolved: 96-38-3163Sbbevjswnfis (1 source)CONTACT W/AND (SUSP) EXPOS COVID-19; Translations: [CONTACT W/AND (SUSP) EXPOS COVID-19]Onset: 78-34-7052Uaxeu infection (20 sources)COVID-19; Translations: [Other specified viral infection]Onset: 645187-44-1131Jxqaepkf Results Test NameValueInterpretationReference RangeFacilityLaboratory - Hematology and Cell countson 47-97-0057TiK0s (Bld) [Mass fraction]6.1 %[facility] HealthcareNo Panel Informationon 87-37-6349Tuuqtdluubylbc and review of laboratory resultsAbnormal [facility] CenterNOOK HealthcareAmbulatory Visit Summaryon 16-53-5800Jrxcgnraai Visit SummaryAmbulatory Visit Summary RITCHIE PANG :1945 Visit Date:04/30/2025 Ambulatory Visit Instructions Your Diagnosis Personal history of prostate cancer BPH with urinary obstruction Low testosterone Your Care Team Attending Physician - ANA MARIA PADILLA, Bernardo Khan Primary Care Physician - STEPHY PADILLA, NATAN Prescott This Is Your Medications List tamsulosin (tamsulosin 0.4 mg Cap) Contact prescribing physician if questions or concerns calcium-vitamin D (calcium (as carbonate)-vitamin D 90 mg-25 mcg (1000 intl units) oral tablet) metformin (metformin 500 mg oral tablet) olopatadine ophthalmic (Pataday Once Daily Relief 0.2% ophthalmic solution) sitagliptin (Januvia 100 mg Tab) Procedures Performed Radiation therapy care (12/21/2020), Transrectal biopsy of prostate (03/28/2020), Transrectal biopsy of prostate using ultrasound (US) guidance (04/16/2011), Removal of ureteral stent (07/28/2007), Laser ablation of prostate (07/12/2007), Nephrectomy (10/10/2001), Appendectomy, Tonsillectomy. Discharge Vitals Temperature (Temporal Artery) 37 ???C Heart Rate (Peripheral) 69 Respiratory Rate 16 Blood Pressure 123/65 Height 172 cm Height 68 in Weight 87.2 kg Weight 192.243 lb BMI 29.48 What to do next You Need to Schedule the Following Appointments Follow Up with ANA MARIA PADILLA, MARIA LUISA Hoang When: Comments: 1 yr w/ PSA Where: [address] [place] [address] [place] [address] Medications What How Much When Instructions Unchanged tamsulosin (tamsulosin 0.4 mg Cap) 1 Capsules By Mouth Every day TAKE 1 CAPSULE BY MOUTH EVERYDAY AT BEDTIME Unchanged calcium-vitamin D (calcium (as carbonate)-vitamin D 90 mg-25 mcg (1000 intl units) oral tablet) By Mouth Every day Contact prescribing physician if questions or concerns Unchanged metformin (metformin 500 mg oral tablet) TAKE 1 TABLET BY MOUTH TWICE A DAY WITH A MEAL Contact prescribing physician if questions or concerns Unchanged olopatadine ophthalmic (Pataday Once Daily Relief 0.2% ophthalmic solution) Contact prescribing physician if questions or concerns Unchanged sitagliptin (Januvia 100 mg Tab) Contact prescribing physician if questions or concerns Allergies Grass (Unknown) Problems Ongoing - Any problem that you are currently receiving treatment for. Absent kidney Acute low back pain BPH with urinary obstruction Chest pain Cyst of kidney Diabetes Dyspnea Dysuria Elevated PSA Flank pain Former smoker H/O: gout History of kidney stones Ingrowing great toenail Malignant neoplasm of prostate Microscopic hematuria Nocturia Pain in hallux Pain in right thumb Personal history of prostate cancer Prostate cancer Prostatitis Solitary right kidney Spasm of cervical paraspinous muscle Straining to void Type 2 diabetes mellitus Vitamin D deficiency Weak urinary stream Patient Survey You may receive a survey via text or e-mail asking about your office visit. Please share your experience with us by completing your survey. We appreciate your feedback and thank you for choosing us for your care. Education Materials Benign Prostatic Hyperplasia Benign prostatic hyperplasia (BPH) [...] or symptoms? Symptoms of this condition include: ??? Getting up often during the night to urinate. ??? Needing to urinate frequently during the day. ??? Difficulty starting urine flow. ??? Decrease in size and strength of your urine stream. ??? Leaking (dribbling) after urinating. ??? Inability to pass urine. This needs immediate treatment. ??? Inability to completely empty your bladder. ??? Pain when you pass urine. This is more common if there is also an infection. ??? Urinary tract infection (UTI). How is this diagnosed? This condition is diagnosed based on your medical history, a physical exam, and your symptoms. Tests will also b (more content not included)...[facility]/Clinic Noteon 28-52-7175Efnzijf Office/Clinic NoteUrology Office/Clinic Note Chief Complaint 1 year with PSA HPI Staff Pt is a 79 year old male here for 1 year follow with PSA Previous Dx: BPH with urinary obstruction, personal hx of prostate cancer. S/p EBRT 12/2020, TRUS/bx 03/28/20 *Tamsulosin 0.4 mg qhs PRN. PSA 04/29/21 - 0.51 11/03/21 - 0.38 05/11/22 - 0.36 12/28/22 - 0.34 03/06/24- 0.32 01/01/25 - 0.26 IPSS score of 9 today. Incomplete emptying and intermittency less than half the time. Pt states he is only getting up at night about 3x a month. Feels that his stream is slower and he has hesitancy only at night. He feels he is urinating well during the daytime. Denies any visible blood or pain at any time. History of Present Illness Tests reviewed: reviewed UA, PSA I have reviewed the previous health record information and history for this patient from Dr. Rodgers. I have reviewed and verified the staff HPI to be accurate for this encounter. Review of Systems PHQ Score Initial [...] See HPI. Physical Exam Vitals & Measurements T: 37 ???C(Temporal Artery) HR: 69(Peripheral) RR: 16 BP: 123/65 HT: 68 in HT: 172 cm WT: 192.243 lb WT: 87.2 kg BMI: 29.48 General Appearance: alert, no distress, well nourished, well developed male. Assessment/Plan 1. Personal history of prostate cancer (Z85.46: Personal history of malignant neoplasm of prostate) PSA 04/29/21 - 0.51 11/03/21 - 0.38 05/11/22 - 0.36 12/28/22 - 0.34 03/06/24 - 0.32 01/01/25 - 0.26 S/p TRUS/bx 03/28/20 - G7 (3+4) x3 cores, highest involvement 6%. Completed radiation treatments with Dr. Beck 12/2020. Pt was unable to get Gross Seed implant due to anatomy. PSA decreased from prior, lowest level on record. Will cont to monitor. -PSA in 1 yr 2. BPH with urinary obstruction (N40.1: Benign prostatic hyperplasia with lower urinary tract symptoms) UA neg. IPSS 9. Taking Flomax 0.4 mg prn. Feels he empties. Reports hesitancy at night. Recommendedtrial of Flomax nightly as pt has never taken this med consecutively for a month. Pt will try this.Shares he experienced a recent episode of vertigo, unsure if this is related to Flomax. -Trial Flomax 0.4 mg qhs x1 month. Monitor for SE of dizziness. 3. Low testosterone (R79.89: Other specified abnormal findings of blood chemistry) Reports he had T level checked recently and it was found to be low. Noticed decreased muscle mass. Discussed TRT tx options include Androgel vs injections. Will consider options once level is confirmed. -Pt to bring in T level to our office before proceeding with TRT Follow-up With When Contact Information ANA MARIA PADILLA, Bernardo Khan, URL [address] [place] [address] [place] [address] Additional Instructions: 1 yr w/ PSA Patient Education Benign Prostatic Hyperplasia I, Tiffany Pitts, personally scribed for Dr. Rodgers on 04/30/2025 13:03:45. . Documentation recorded by the scribe, Tiffany Pitts, accurately reflects the services(s) I performed and decisions made by me. Authenticated by Dr. Rodgers on 04/30/2025 13:07:04. Problem List/Past Medical History Ongoing Absent kidney Acute low back pain BPH with urinary obstruction Chest pain Cyst of kidney Diabetes Dyspnea Dysuria Elevated PSA Flank pain Former smoker H/O: gout History of kidney stones Ingrowing great toenail Malignant neoplasm of prostate Microscopic hematuria Nocturia Pain in hallux Pain in right thumb Personal history of prostate cancer Prostate cancer Prostatitis Solitary right kidney Spasm of cervical paraspinous muscle Straining to void Type 2 diabetes mellitus Vitamin D deficiency Weak urinary stream Historical No qualifying data [...] 0.2% ophthalmic solution tamsulosin 0.4 mg Cap, 0.4 mg= 1 cap(s), Oral, Daily, 3 refills, Still taking, not as prescribed: Pt states that he is only taking this when he feels he needs it. Allergies Grass (Unknown) (more content not included)...[facility] Comment on above:Result Comment: Electronically Signed By: Bernardo RODGERS MD\.br\Date and Time Signed: 04/30/25 13:07 EDT\.br\Electronically Co-Signed By: Tiffany Pitts\.br\Date and Time Co-Signed: 04/30/25 13:04 EDTErythrocyte distribution width Auto (RBC) [Ratio]Ordered By: Jillian Edwards on 03-07-2025 Erythrocyte distribution width (RBC) [Ratio]11.9 %11.0-15.0[facility]rium Medical CenterEstimated glomerular filtration rate (GFR) non- Ordered By: Jillian Edwards on 67-26-2499MSZ/1.73 sq M.predicted among non-blacks MDRD (S/P/Bld) [Vol rate/Area]52 mL/min/{1.73_m2}Low>=60 mL/min/1.73m [address] [place] [address] CBC WITH PLATELET NO DIFFERENTIALon 03-07-2025 Erythrocyte distribution width (RBC) [Ratio]11.9 %11.0 - 15.0 %[facility] Hematocrit (Bld) [Volume fraction]44.2 %42.0 - 54.0 %[facility] Cancer CenterHemoglobin (Bld) [Mass/Vol]14.7 g/dL14.0 - 18.0 g/dLMercy hospital springfieldH (RBC) [Entitic mass] 30.1 pg25.9 - 34.0 pgMercy hospital springfieldHC (RBC) [Mass/Vol]33.3 g/dL29.9 - 35.2 g/dLMercy hospital springfieldV (RBC) [Entitic vol]90.4 fL80.0 - 94.0 fLAlvin J. Siteman Cancer Center Platelet mean volume (Bld) [Entitic vol]11 fL9.5 - 13.5 fLAlvin J. Siteman Cancer CenterTB PLT 173NOMS [facility] Medical CenterTB RBC4.89NOMS [facility] Medical CenterTB WBC7.6NOResearch Belton HospitalCLINISYNC [facility] Cancer CenterHematocrit Auto (Bld) [Volume fraction]Ordered By: Jillian Edwards on 08-71-8559Wzesbbmxtr (Bld) [Volume fraction]44.2 %42.0-54.0[facility] Medical CenterHemoglobin [Mass/volume] in BloodOrdered By: Jillian [facility] on 58-00-1796Gsolqumqqb (Bld) [Mass/Vol]14.7 g/dL14.0-18.0[facility] Medical CenterLaboratory - Chemistry and Chemistry - challengeOrdered By: Jillian Edwadrs on 65-30-0327Acwlqmq [Mass/Vol]3.8 g/dL3.4-5.0[facility] Medical CenterCalcium [Mass/Vol]9.4 mg/dL8.5-10.1FKettering Health Troy Chloride [Moles/Vol]104 mmol/W73-028UtdcqcvpoPremier Health Atrium Medical CenterCO2 [Moles/Vol]27.2 mmol/L21.0-32.0[facility] Medical CenterCreatinine [Mass/Vol]1.32 mg/dLHigh0.70-1.30[facility] Medical CenterGFR/1.73 sq M.predicted MDRD (S/P/Bld) [Vol rate/Area]mL/min/{1.73_m2}>=60 mL/min/1.73m 2 [facility] Medical CenterGlucose [Mass/Vol]187 mg/pGLynx16-850XcxppayhcPremier Health Atrium Medical CenterMagnesium [Mass/Vol]2.0 mg/dL1.8-2.4FKettering Health TroyPotassium [Moles/Vol]4.4 mmol/L3.5-5.1FKettering Health Washington Townshipodium [Moles/Vol]142 mmol/W994-882YbayrkgdoPremier Health Atrium Medical CenterUrate [Mass/Vol]6.1 mg/dL3.5-7.2FKettering Health TroyUrea nitrogen [Mass/Vol]23.0 mg/dLHigh7.0-18.0[facility] Medical CenterUrea nitrogen/Creatinine [Mass ratio]17.4 mg/mgPremier Health Atrium Medical Center Bilirubin Ql (U)NegativeNEGATIVEPremier Health Atrium Medical CenterGlucose (U) [Mass/Vol]NegativeNEGATIVEPremier Health Atrium Medical CenterKetones Ql (U) NegativeNEGATIVEPremier Health Atrium Medical CenterpH (U)5.5 [pH]5.0-9.0[facility] Health Systempecific gravity (U) [Rel density]1.0201.005-1.025 [facility] Medical CenterUrobilinogen Qn (U)0.2 {Alba'U}/dL0.2-1.0 [facility] CenterLaboratory - Specimen informationOrdered By: Jillian Edwards on 66-29-1465Niplrentua (U)CLEARCLEARFKettering Health TroyColor (U)LT. YELLOWYELLOWPremier Health Atrium Medical CenterLaboratory - UrinalysisOrdered By: Jillian Edwards on 73-24-9202Jiafmyvvp esterase Test strip Ql (U)NegativeNEGATIVEPremier Health Atrium Medical CenterNitrite Ql (U)Negative NEGATIVEPremier Health Atrium Medical CenterProtein Ql (U)NegativeNEG/TRACE [facility] CenterLeukocytes [#/volume] corrected for nucleated erythrocytes in Blood by Automated counOrdered By: Jillian Edwards on 44-74-1720EAI corrected for nucl RBC Auto (Bld) [#/Vol]7.6 10 3/uL4.0-11.0[facility] HospitalH Auto (RBC) [Entitic mass]Ordered By: Jillian Edwards on 68-17-8762WZN (RBC) [Entitic mass]30.1 pg25.9-34.0[facility] HospitalHC Auto (RBC) [Mass/Vol]Ordered By: Jillian Edwards on 74-01-3436YMDJ (RBC) [Mass/Vol]33.3 g/dL29.9-35.2FKettering Health TroyMCV Auto (RBC) [Entitic vol]Ordered By: Jillian Edwards on 65-91-4464WWL (RBC) [Entitic vol]90.4 fL80.0-94.0[facility] Medical CenterMicroalbumin [Mass/volume] in Urine Ordered By: Jillian Edwards on 03-73-5501Qlzcmqm DL <= 20 mg/L (U) [Mass/Vol]mg/dL <=30.0[facility] Medical CenterNo Panel InformationOrdered By: Jillian Edwards on 398709-Trowwpp Vitamin D Total45.3 ng/mLPremier Health Atrium Medical CenterComment on above:<20 ng/mL Vit D oomtbitwd38-<30 ng/mL Vit D npuvjqpakdzr74-641 ng/mL Vit D sufficient>100 ng/mL Potential Toxicity Parathyroid Hormone (Intact)16 pg/hV23-95JzlcajinyPremier Health Atrium Medical Center Comment on above:Performed at: [facility] [id number] Director: Jose Ramon Arreola PhD, Phone: [phone] Level 3.3 mg/dL2.6-4.7FKettering Health TroyUrine Occult BloodNegative NEGATIVEPremier Health Atrium Medical CenterUrine Random Esrycefwur57.55 mg/dL 20.00-300.00Prem[facility] Medical CenterUrine Random Total Protein<6.0 mg/dL<=11.9[facility] Medical CenterPlatelet mean volume Auto (Bld) [Entitic vol]Ordered By: Jillian Edwards on 95-72-8631Zydxhkzj mean volume (Bld) [Entitic vol]11.0 fL9.5-13.5FKettering Health TroyPlatelets Auto (Bld) [#/Vol]Ordered By: Jillian Edwards on 57-32-6157Hzqeekpwk (Bld) [#/Vol]173 10 3/qW588-947AdhavowhrPremier Health Atrium Medical CenterRBC Auto (Bld) [#/Vol]Ordered By: Jillian Edwards on 40-79-0586QTQ (Bld) [#/Vol]4.89 10 6/uL4.70-6.10Holzer Health Systemerum or plasma anion gap determinationOrdered By: Jillian Edwards on 60-04-0245Mwjuz gap [Moles/Vol]15.2 mmol/LFKettering Health TroyLaboratory - Hematology and Cell countson 45-53-9413KiZ0k (Bld) [Mass fraction]7.2 %[facility] HealthcareNo Panel Informationon 07-94-1937Modmgpdtvszvxe and review of laboratory resultsAbnormalNOMS HealthcareNOMS HealthcareCoding Summary on 02-91-7087Wjfyyl SummaryHTMLBase 64 GwebznibXIn9lXq+PGhlYWQ+CS1UDFEwS78nwDZjjP2rT1LXMDyCSsgjXVECWDfWBuLstbCjZT1fpLVz ZXJu [file] YXB (more content not included)...[facility] 28-98-9770WRKW Office Visit (MARILOUA) RITCHIE PANG ([id number]) 1945 M Date Time Provider Department 01/04/25 10:45 AM Stanley BECK During your visit today, we recorded the following information about you: Temperature Pulse Respiration Blood pressure 97.3 degrees 61/minute 18/minute 132/71 Weight 91.4 kg Dora Gilbert RN 01/04/2025 11:12 AM Signed [facility] JOSE Slade G Phillip, MD 01/04/2025 11:12 AM Signed Radiation Oncology - Follow Up Note PATIENT NAME: Ritchie Pang PATIENT DIAGNOSIS: Prostate adenocarcinoma, initial PSA [...] ASSESSMENT/PLAN: Prostate adenocarcinoma, initial PSA 8.5, biopsy [place] score 3 + 4 = 7 (grade [...] in the EMR. Referring Provider: Stanley BECK [[id number]] Allergies As of Date: 01/04/2025 (No Known Allergies) Date Reviewed: 01/04/2025 Reviewed by: Dora Gilbert RN - Fully Assessed Reason for Visit: Prostate Cancer [590] Primary Visit Diagnosis:History of prostate cancer [Z85.46] Order(s):PSA (OUTSIDE) [[id number]] Order #: [id number] PROSTATE-SPECIFIC ANTIGEN DIAGNOSTIC [SQPSA] Order #: [id number] FUTURE Prescriptions as of 01/04/2025 - atorvastatin [...] Service: OFFICE/OUTPATIENT ESTABLISHED LOW MDM 20 MIN [99044] Additional E/M codes: VISIT CPLX INHERENT EANDM ASSOC WITH MED * Disposition: Return in about 1 year (around 01/04/2026). Follow-up and Disposition History for Encount (more content not included)... NormalSalem Regional Medical CenterPT PSA, DIAGNOSTICon 44-90-7911MWHFZGJV SPECIFIC ANTIGEN DX0.26 ng/mLNINF - 4.00 ng/mLNOMS HealthcareCLINISYNCNo Panel Informationon 55-04-8318XWAO HealthcareLaboratory - Hematology and Cell countson 95-69-3379KdM5k (Bld) [Mass fraction]7.8 %[facility] Cancer CenterNo Panel Informationon 70-90-2159Exyrxcsgicdtyp and review of laboratory resultsAbSelect Specialty Hospital HealthcareXR TOES 2+ VIEWS RIGHTon 99-23-0484YF TOES 2+ VIEWS RIGHT FINDINGS: Decreased bone [...] TRANSCRIBED BY: ELECTRONICALLY SIGNED BY: Addison Donaldson MDNormalNot AvailableXR Toes - right 2 Viewson . 1st MTP findings can be consistent with erosive arthritis, specifically gout. 2. No cortical or stress fracture. TRANSCRIBED BY: ELECTRONICALLY SIGNED BY: Addison Donaldson MDIMAGING FINDINGS: Decreased bone mineralization medial cortex 1st metatarsal head and neighboring 1st proximal phalangeal base with mild overlying soft tissue swelling. Minimal 1st MTP joint space loss. Mild interphalangeal joint space loss. Small plantar and Achilles calcaneal spurs. Prominent plantar arch. IMAGINGSpAddison tom MD - 11/23/2024 FINDINGS: Decreased bone mineralization medial [...] BY: ELECTRONICALLY SIGNED BY: Addison Donaldson MD [facility] HealthcareRadiology Study observation (narrative)[facility] CenterXR Toes - right 2 ViewsOrdered By: Addison Donaldson on 34-28-5634UNMNAlvin J. Siteman Cancer Center Work Phone: NM eliud perf SPECT rest stron 09-35-4108RY eliud perf SPECT rest [facility] Main [place] [address] [place] [address] Nuclear Medicine Report Signed Patient: Ritchie Pang#: [id number] : 1945 Acct:[id number] Age/Sex: 78 / M ADM Date: 09/18/24 Loc: [place] Room: Type: REG CLI Attending Dr: Natan [...] Irina Ann M.D.09/18/2024 4:06 PM Dictation Location: [place] [address] Transcribed By: [facility] 09/18/24 1606 Dictated By: Irina Ann MD 09/18/24 1604 Signed By: 09/18/24 1606[facility] Physician GroupNo Panel InformationOrdered By: Irina Ann on 30-69-5849SIMCQJQQTTHE [facility] [address] Cardiac Stress Test Signed Patient: Ritchie Pang MR#: [id number] : 1945 Date of Service:0 09/18/24 Age/Sex: 78 / M ADM Date: 5 Loc: [place] Room: Type: REG CLI Attending Dr: Natan [...] MD 09/18/24 1534 Signed By: 09/18/24 1538 [facility] Work Phone: ALBUMIN, RANDOM URINE W/CREATININEon 08-29-2024 ALBUMIN, URINE0.9 mg/dLNormalSee Note:Quest DiagnosticsComment on above:Result Comment: Reference Range: Reference Range Not establishedPerformed By: #### 6517, 27632, 6399, 7600 #### [facility] [address], [address] [place] [id number] Executive Communications Manager: Zurdo Ball MDALBUMIN/CREATININE RATIO, RANDOM URINE8 mg/g creatNormal<30Quest DiagnosticsComment on above:Result Comment: The ADA defines abnormalities in albumin excretion as follows: Albuminuria Category Result (mg/g creatinine) Normal to Mildly increased <30 Moderately increased 30-299 Severely increased > OR = 300 The ADA recommends that at least two of three specimens collected within a 3-6 month period be abnormal before considering a patient to be within a diagnostic category.Performed By: #### 6517, 86609, 6399, 7600 #### [facility] [address], [address] [place] [address] Executive Communications Manager: Zurdo PYLEreatinine (U) [Mass/Vol]111 mg/oYNpjdyz43-125 Quest DiagnosticsComment on above:Performed By: #### 6517, 48199, 6399, 7600 #### [facility] [address], [address] [place] [address] Executive Communications Manager: Zurdo Ball MDCBC (INCLUDES DIFF/PLT)on 05-98-2993Rzwhrjxyn (Bld) [#/Vol]0.043 10*3/uLNormal0-200Quest DiagnosticsComment on above:Performed By: #### 6517, 86308, 6399, 7600 #### [facility] [address], [address] [place] [address] Executive Communications Manager: Zurdo Ball MDBasophils/100 WBC (Bld)0.5 %NormalQuest DiagnosticsComment on above:Performed By: #### 6517, 65278, 6399, 7600 #### [facility] [address], [address] [place] [address] Executive Communications Manager: Zurdo Ball MDCOMMENT(S)NormalQuest DiagnosticsComment on above:Result Comment: Review of peripheral smear confirms automated results.Performed By: #### 6517, 98313, 6399, 7600 #### [facility] of [address], [address] [place] [address] Executive Communications Manager: Zurdo Ball MDEosinophils (Bld) [#/Vol]0.187 10*3/uLNormal 15-500Quest DiagnosticsComment on above:Performed By: #### 6517, 03277, 6399, 7600 #### [facility] of [address], [address] [place] [address] Executive Communications Manager: Zurdo Ball MDEosinophils/100 WBC (Bld)2.2 %NormalQuest DiagnosticsComment on above:Performed By: #### 6517, 76119, 6399, 7600 #### [facility] of [address], [address] [place] [address] Executive Communications Manager: Zurdo Ball MDErythrocyte distribution width (RBC) [Ratio] 12.3 %Bbidvg72.0-15.0Quest DiagnosticsComment on above:Performed By: #### 6517, 78471, 6399, 7600 #### [facility] of [address], [address] [place] [address] Executive Communications Manager: Zurdo Ball MDHematocrit (Bld) [Volume fraction]46.9 %Normal 38.5-50.0Quest DiagnosticsComment on above:Performed By: #### 6517, 60903, 6399, 7600 #### [facility] of [address], [address] [place] [address] Executive Communications Manager: Zurdo Ball MDHemoglobin (Bld) [Mass/Vol]15.2 g/dLNormal 13.2-17.1Quest DiagnosticsComment on above:Performed By: #### 6517, 55125, 6399, 7600 #### [facility] of [address], [address] [place] [address] Executive Communications Manager: Zurdo Ball MDLymphocytes (Bld) [#/Vol]1.505 10*3/uLNormal 850-3900Quest DiagnosticsComment on above:Performed By: #### 6517, 72503, 6399, 7600 #### [facility] of [address], [address] [place] [address] Executive Communications Manager: Zurdo Ball MDLymphocytes/100 WBC (Bld)17.7 %NormalQuest DiagnosticsComment on above:Performed By: #### 6517, 34043, 6399, 7600 #### [facility] of [address], [address] [place] [address] Executive Communications Manager: Zurdo Ball MDMCH (RBC) [Entitic mass]29.1 ivVspmnx68.0-33.0 Quest DiagnosticsComment on above:Performed By: #### 6517, 97749, 63, 7600 #### [facility] of [address], [address] [place] [address] Executive Communications Manager: Zurdo Ball MDMCHC (RBC) [Mass/Vol]32.4 g/lSRtgsmx50.0-36.0 Quest DiagnosticsComment on above:Result Comment: For adults, a slight decrease in the calculated MCHC value (in the range of 30 to 32 g/dL) is most likely not clinically significant; however, it should be interpreted with caution in correlation with other red cell parameters and the patient's clinical condition.Performed By: #### 6517, 17104, 63, 7600 #### [facility] of [place] [address] Executive Communications Manager: Zurdo Ball MDMCV (RBC) [Entitic vol]89.8 hBOyrwkh58.0-100.0 Quest DiagnosticsComment on above:Performed By: #### 6517, 04713, 63, 7600 #### [facility] of [place] [address] Executive Communications Manager: Zurdo Ball MDMonocytes (Bld) [#/Vol]0.672 10*3/uLNormal 200-950Quest DiagnosticsComment on above:Performed By: #### 6517, 79307, 63, 7600 #### [facility] of [place] [address] Executive Communications Manager: Zrudo Ball MDMonocytes/100 WBC (Bld)7.9 %NormalQuest DiagnosticsComment on above:Performed By: #### 65, 38955, 63, 7600 #### [facility] of [place] [address] Executive Communications Manager: Zurdo Ball MDNeutrophils (Bld) [#/Vol]6.095 10*3/uLNormal 1500-7800Quest DiagnosticsComment on above:Performed By: #### 6517, 61512, 6399, 7600 #### [facility] of [place] [address], [address] [place] [address] Executive Communications Manager: Zurdo Ball MDNeutrophils/100 WBC (Bld)71.7 %NormalQuest DiagnosticsComment on above:Performed By: #### 6517, 17161, 6399, 7600 #### [facility] of [address], [address] [place] [address] Executive Communications Manager: Zurdo GIPSONlatesobeida mean volume (Bld) [Entitic vol]11.2 fLNormal7.5-12.5Quest DiagnosticsComment on above:Performed By: #### 6517, 72658, 6399, 7600 #### [facility] of [address], [address] [place] [address] Executive Communications Manager: Zurdo GIPSONlatelets (Bld) [#/Vol]201 10*3/uLNormal 140-400Quest DiagnosticsComment on above:Performed By: #### 6517, 11562, 6399, 7600 #### [facility] of [address], [address] [place] [address] Executive Communications Manager: Zurdo Ball MDRBC (Bld) [#/Vol]5.22 10*6/uLNormal4.20-5.80 [facility] DiagnosticsComment on above:Performed By: #### 6517, 62368, 6399, 7600 #### [facility] of [address], [address] [place] [address] Executive Communications Manager: Zurdo Blal MDWBC (Bld) [#/Vol]8.5 10*3/uLNormal3.8-10.8 Quest DiagnosticsComment on above:Performed By: #### 6517, 50660, 6399, 7600 #### [facility] of [address], [address] [place] [address] Executive Communications Manager: Zurdo Ball MDCOMPREHENSIVE METABOLIC PANELon 08-29-2024 Albumin [Mass/Vol]4.6 g/dLNormal3.6-5.1Quest DiagnosticsComment on above: Performed By: #### 6517, 54632, 6399, 7600 #### [facility] of [place] [address] Executive Communications Manager: Zurdo Ball MDAlbumin/Globulin [Mass ratio]1.7 {ratio}Normal 1.0-2.5Quest DiagnosticsComment on above:Performed By: #### 6517, 92565, 6399, 7600 #### [facility] of [place] [address] Executive Communications Manager: Zurdo Ball MDALP [Catalytic activity/Vol]52 U/BSqawgh05-817 [facility] DiagnosticsComment on above:Performed By: #### 6517, 94614, 6399, 7600 #### [facility] of [place] [address] Executive Communications Manager: Zurdo Ball MDALT [Catalytic activity/Vol]19 U/LNormal9-46 Quest DiagnosticsComment on above:Performed By: #### 6517, 04423, 6399, 7600 #### [facility] of [place] [address] Executive Communications Manager: Zurdo Ball MDAST [Catalytic activity/Vol]17 U/FZkuyhx98-54 [facility] DiagnosticsComment on above:Performed By: #### 6517, 10547, 6399, 7600 #### [facility] of [place] [address] Executive Communications Manager: Zurdo Ball MDBilirubin [Mass/Vol]0.7 mg/dLNormal0.2-1.2 Quest DiagnosticsComment on above:Performed By: #### 6517, 19350, 6399, 7600 #### [facility] of [address], [address] [place] [address] Executive Communications Manager: Zurdo Ball MDBUN/CREATININE RATIOSEE NOTE:Normal6-22Quest DiagnosticsComment on above:Result Comment: Not Reported: BUN and Creatinine are within reference range.Performed By: #### 6517, 74942, 6399, 7600 #### [facility] of [address], [address] [place] [address] Executive Communications Manager: Zurdo PYLEalcium [Mass/Vol]9.4 mg/dLNormal8.6-10.3Quest DiagnosticsComment on above:Performed By: #### 6517, 72553, 6399, 7600 #### [facility] of [place] [address] Executive Communications Manager: Zurdo Ball MDChloride [Moles/Vol]100 mmol/QGulvgr28-533 [facility] DiagnosticsComment on above:Performed By: #### 6517, 81680, 6399, 7600 #### [facility] of [place] [address] Executive Communications Manager: Zurdo Ball MDCO2 [Moles/Vol]30 mmol/ERusuxj65-07Gchol DiagnosticsComment on above:Performed By: #### 6517, 87351, 6399, 7600 #### [facility] of [place] [address] Executive Communications Manager: Zurdo PYLEreatinine [Mass/Vol]1.21 mg/dLNormal0.70-1.28 Quest DiagnosticsComment on above:Performed By: #### 6517, 70449, 6399, 7600 #### [facility] of [place] [address] Executive Communications Manager: Zurdo Ball MDGFR/1.73 sq M.predicted among non-blacks MDRD (S/P/Bld) [Vol rate/Area]61 mL/min/{1.73_m2}Normal> OR = 60[facility] Comment on above:Performed By: #### 6517, 85471, 6399, 7600 #### [facility] [address], [address] [place] [address] Executive Communications Manager: Zurdo Ball MDGlobulin (S) [Mass/Vol]2.7 g/dLNormal1.9-3.7 Quest DiagnosticsComment on above:Performed By: #### 6517, 68008, 6399, 7600 #### [facility] of [address], [address] [place] [address] Executive Communications Manager: Zurdo Ball MDGlucose [Mass/Vol]148 mg/dZSkim73-34Ajfxa DiagnosticsComment on above:Result Comment: Fasting reference interval For someone without known diabetes, a glucose value >125 mg/dL indicates that they may have diabetes and this should be confirmed with a follow-up test.Performed By: #### 6517, 43926, 6399, 7600 #### [facility] [place] [address] Executive Communications Manager: Zurdo Ball MDPotassium [Moles/Vol]4.7 mmol/LNormal3.5-5.3 Quest DiagnosticsComment on above:Performed By: #### 6517, 04323, 6399, 7600 #### [facility] [place] [address] Executive Communications Manager: Zurdo Ball MDProtein [Mass/Vol]7.3 g/dLNormal6.1-8.1Quest DiagnosticsComment on above:Performed By: #### 6517, 55249, 6399, 7600 #### [facility] [place] [address] Executive Communications Manager: Zurdo Ball MDSodium [Moles/Vol]139 mmol/TAtwpkt390-784Stqod DiagnosticsComment on above:Performed By: #### 6517, 57209, 6399, 7600 #### [facility] [address], [address] [place] [address] Executive Communications Manager: Zurdo Ball MDUrea nitrogen [Mass/Vol]20 mg/dLNormal7-25 Quest DiagnosticsComment on above:Performed By: #### 6517, 70037, 6399, 7600 #### [facility] [address], [address] [place] [address] Executive Communications Manager: Zurdo Ball MDLIPID PANEL, STANDARD 53-23-3438Dxvtkxoepvm [Mass/Vol]185 mg/dLNormal<200Quest DiagnosticsComment on above:Order Comment: FASTING:YES FASTING: YESPerformed By: #### 6517, 05776, 6399, 7600 #### [facility] [address], [address] [place] [address] Executive Communications Manager: Zurdo Ball MDCholesterol in HDL [Mass/Vol]52 mg/dLNormal> OR = 40Quest DiagnosticsComment on above:Order Comment: FASTING:YES FASTING: YESPerformed By: #### 6517, 98357, 6399, 7600 #### [facility] [address], [address] [place] [address] Executive Communications Manager: Zurdo PYLEholesterol in LDL [Mass/Vol]102 mg/dLHigh [facility] DiagnosticsComment on above:Order Comment: FASTING:YES FASTING: YESResult Comment: Reference range: <100 Desirable range <100 mg/dL for primary prevention; <70 mg/dL for patients with CHD or diabetic patients with > or = 2 CHD risk factors. LDL-C is now calculated using the Juan Manuel calculation, which is a validated novel method providing better accuracy than the Friedewald equation in the estimation of LDL-C. Buster ZAMUDIO et al. ABE. 2013;310(19): 0135-7838 (http://education.Camrivox.MarketArt/faq/HCX788)Performed By: #### 6517, 18859, 6399, 7600 #### [facility] [address], [address] [place] [address] Executive Communications Manager: Zurdo Ball MDCholesterol.total/Cholesterol in HDL [Mass ratio]3.6 {ratio}Normal<5.0Quest DiagnosticsComment on above:Order Comment: FASTING:YES FASTING: YESPerformed By: #### 6517, 66176, 6399, 7600 #### [facility] [address], [address] [place] [address] Executive Communications Manager: Zurdo HOWELL HDL ZXFBYCQZUXF567 mg/dL (calc)High<130 Quest DiagnosticsComment on above:Order Comment: FASTING:YES FASTING: YESResult Comment: For patients with diabetes plus 1 major ASCVD risk factor, treating to a non-HDL-C goal of <100 mg/dL (LDL-C of <70 mg/dL) is considered a therapeutic option.Performed By: #### 6517, 10695, 6399, 7600 #### [facility] [address], [address] [place] [address] Executive Communications Manager: Zurdo Ball MDTriglyceride [Mass/Vol]192 mg/dLHigh<150Quest DiagnosticsComment on above:Order Comment: FASTING:YES FASTING: YESPerformed By: #### 6517, 28259, 6399, 7600 #### [facility] [address], [address] [place] [address] Executive Communications Manager: Zurdo AZARR HEAD/BRAIN WO ROMEROon 11-72-9931[address] [address] Magnetic Resonance Report Signed Patient: RITCHIE PANG MR#: [id number] : 1945 Acct:[id number] Age/Sex: 78 / M ADM Date: 08/24/24 Loc: MRI Attending Dr: NATAN KEYES Ordering Physician: NATAN KEYES Date of Service: 08/24/24 Procedure(s): MR head/brain wo con Accession Number(s): [id number] cc: NATAN KEYES [address] [address] Patient Name: RITCHIE PANG MRN: [facility]:[id number] date: 1945 Sex: M Assigned Patient Location: MRI Current Patient Location: MRI Accession/Order Number: [id number] Exam Date: 08/24/2024 13:10 Report Date: 08/24/2024 16:45 At the request of: NATAN KEYES Procedure: MR head/brain wo con EXAM: [...] M.D. Signed By: 08/24/241646 DD/ 44 TD/TT: Line Staker:ANALIAHRadiology, Radiologist, - 08/24/2024 [place] [address] Magnetic Resonance Report Signed Patient: RITCHIE PANG MR#: [id number] : 1945 Acct:[id number] Age/Sex: 78 / M ADM Date: 08/24/24 Loc: MRI Attending Dr: NATAN KEYES Ordering Physician: NATAN KEYES Date of Service: 08/24/24 Procedure(s): MR head/brain wo con Accession Number(s): [id number] cc: NATAN KEYES [place] [id number] Patient Name: RITCHIE PANG MRN: [facility]:[id number] date: 1945 Sex: M Assigned Patient Location: MRI Current Patient Location: MRI Accession/Order Number: [id number] Exam Date: 08/24/2024 13:10 Report Date: 08/24/2024 16:45 At the request of: NATAN KEYES Procedure: MR head/brain wo con EXAM: [...] Dictated By: VICK PECK M.D. Signed By: 08/24/247 DD/ 44 TD/TT: Line Staker: ESTEPHANIA HealthcareRadiology Study observation (narrative)[facility] HEAD/BRAIN WO CONOrdered By: Radiologist Radiology on 90-96-6899FXNVAlvin J. Siteman Cancer Center Work Phone: Laboratory - Hematology and Cell countson 08-14-2024 HbA1c (Bld) [Mass fraction]7.4 %[facility] Cancer CenterNo Panel Informationon 08-14-2024 Interpretation and review of laboratory resultsAbnormalSaint [facility] HealthcareNo Panel Informationon 56-21-3757PYVZ HealthcareCT head/brain wo conon 33-86-2159AZ head/brain wo [facility] Main [place] [address] [place] [address] CT Scan Report Signed Patient: Ritchie Pang MR#: [id number] : 1945 Acct:[id number] Age/Sex: 78 / M ADM Date: 05/03/24 Loc: CT Room: Type: [facility] Attending Dr: Subha NIÑO Copies to: RENAY [...] M.D.05/03/2024 10:19 AM Dictation Location: [place] [address] Transcribed By: [facility] 05/03/24 1019 Dictated By: Danya Lovelace MD 05/03/24 1015 Signed By: 05/03/24 [facility] Physician GroupALL CBC WITH AUTO DIFFon 80-90-3458BPCCIRWHX ABSOLUTE AUTO0.0NOMS HealthcareBasophils/100 WBC (Bld)0.5 % 0.2 - 2.0 %[facility] HealthcareEosinophils/100 WBC (Bld)2.9 %0.9 - 7.0 %[facility] HealthcareErythrocyte distribution width (RBC) [Ratio]12.2 %11.0 - 15.0 %[facility] HealthcareHematocrit (Bld) [Volume fraction]42.9 %42.0 - 54.0 %[facility] Hemoglobin (Bld) [Mass/Vol]14.5 g/dL14.0 - 18.0 g/dLAlvin J. Siteman Cancer CenterIMMATURE GRANULOCYTES ABS AUTO0.08HighLafayette Regional Health Centermature granulocytes/100 WBC (Bld) 0.9 %High0.0 - 0.5 %[facility] Cancer CenterInterpretation and review of laboratory resultsAbnormalAlvin J. Siteman Cancer CenterLYMPHOCYTES ABSOLUTE AUTO1.4NOResearch [facility] Lymphocytes/100 WBC (Bld)16.6 %Low20.5 - 60.0 %[facility] (RBC) [Entitic mass]30.8 pg25.9 - 34.0 pgMercy hospital springfieldHC (RBC) [Mass/Vol]33.8 g/dL29.9 - 35.2 g/dLMercy hospital springfieldV (RBC) [Entitic vol]91.1 fL80.0 - 94.0 fLAlvin J. Siteman Cancer CenterMONOCYTES ABSOLUTE AUTO0.7NOResearch Belton HospitalMonocytes/100 WBC (Bld)8.0 % 1.7 - 12.0 %[facility] Cancer CenterNEUTROPHILS ABSOLUTE AUTO6.1NOMS [facility] Neutrophils/100 WBC (Bld)71.1 %43.0 - 75.0 %[facility]item[facility] Cancer CenterPlatelet mean volume (Bld) [Entitic vol]10.6 fL9.5 - 13.5 fLAlvin J. Siteman Cancer CenterTB EO #0.3NOProgress West Hospital XEJ345CNZJUniversity of Missouri Health Care RBC4.71NOUniversity of Missouri Health Care WBC8.6[facility] CLINISYNCAlvin J. Siteman Cancer CenterNo Panel Informationon 21-76-2408XJXZAlvin J. Siteman Cancer CenterType of biopsy: tangential Informed consent: discussed and [...] Photo taken Amount of lidocaine used: 1 [facility] Erythrocyte distribution width Auto (RBC) [Ratio]on 12-38-9213Yyyqnthjmxd distribution width (RBC) [Ratio]12.7 %11.0-15.0[facility] Estimated glomerular filtration rate (GFR) non- Americanon 03-06-2024 GFR/1.73 sq M.predicted among non-blacks MDRD (S/P/Bld) [Vol rate/Area]55 mL/min/{1.73_m2}Low>=60Prem[facility] Atrium Medical CenterGlobulin Calc (S) [Mass/Vol]on 88-89-3744Aqlxcgik (S) [Mass/Vol]3.7 g/dLPremier Health Atrium Medical CenterHematocrit Auto (Bld) [Volume fraction]on 13-39-2393Ymggygozuu (Bld) [Volume fraction]40.7 %Low42.0-54.0[facility] Medical CenterHemoglobin [Mass/volume] in Bloodon 85-36-9416Kzgemmnsbt (Bld) [Mass/Vol]13.4 g/dLLow 14.0-18.0[facility] Medical CenterLaboratory - Chemistry and Chemistry - challengeon 25-48-0170[place] [Mass/Vol]3.9 g/dL3.4-5.0[facility] Medical CenterALP [Catalytic activity/Vol]61 U/W34-028MllovdpxmPremier Health Atrium Medical CenterALT [Catalytic activity/Vol]30 U/N18-29JhctvvifjPremier Health Atrium Medical Center AST [Catalytic activity/Vol]20 U/Q33-53AwpuqmbqzPremier Health Atrium Medical Center Bilirubin [Mass/Vol]0.4 mg/dL0.2-1.0[facility] Medical CenterCalcium [Mass/Vol]9.1 mg/dL8.5-10.1FKettering Health TroyChloride [Moles/Vol] 104 mmol/X13-767GnpwzlvpaPremier Health Atrium Medical CenterCO2 [Moles/Vol]28.2 mmol/L 21.0-32.0[facility] Medical CenterCreatinine [Mass/Vol]1.26 mg/dL 0.70-1.30Prem[facility] Atrium Medical CenterGFR/1.73 sq M.predicted MDRD (S/P/Bld) [Vol rate/Area]mL/min/{1.73_m2}>=60Prem[facility] Medical CenterGlucose [Mass/Vol]145 mg/nCOdso75-162NuprsdbucPremier Health Atrium Medical CenterMagnesium [Mass/Vol]2.0 mg/dL1.8-2.4FKettering Health TroyPotassium [Moles/Vol] 3.7 mmol/L3.5-5.1FKettering Health TroyProtein [Mass/Vol]7.6 g/dL 6.4-8.2FKettering Health Washington Townshipodium [Moles/Vol]140 mmol/N740-520 [facility] Medical CenterUrate [Mass/Vol]7.6 mg/dLHigh3.5-7.2FKettering Health TroyUrea nitrogen [Mass/Vol]22.0 mg/dLHigh7.0-18.0[facility] Medical CenterUrea nitrogen/Creatinine [Mass ratio]17.5 mg/mgPremier Health Atrium Medical CenterBilirubin Ql (U)NegativeNEGATIVEPremier Health Atrium Medical CenterGlucose (U) [Mass/Vol]NegativeNEGATIVEPremier Health Atrium Medical CenterKetones Ql (U)NegativeNEGMercy Health – The Jewish HospitalpH (U)6.0 [pH]5.0-9.0Holzer Health Systempecific gravity (U) [Rel density] >=1.065Dpunkgiq0.005-1.025Prem[facility] Medical CenterUrobilinogen Qn (U) 0.2 {Alba'U}/dL0.2-1.0[facility] CenterLaboratory - Specimen informationon 75-74-4025Fywzouzgtu (U)CLEARCLEARFKettering Health TroyColor (U)LT. YELLOWYELLOWPremier Health Atrium Medical CenterLaboratory - Urinalysison 83-92-4003Gmvszgzii esterase Test strip Ql (U)NegativeNEGATIVE [facility] Medical CenterNitrite Ql (U)NegativeNEGATIVEPremier Health Atrium Medical CenterProtein (U) [Mass/Vol]8.7 mg/dL<=11.9Prem[facility] Medical CenterProtein Ql (U)NegativeNEG/TRACEPremier Health Atrium Medical Center Leukocytes [#/volume] corrected for nucleated erythrocytes in Blood by Automated counon 72-31-8688RSC corrected for nucl RBC Auto (Bld) [#/Vol]6.8 10 3/uL 4.0-11.0[facility] HospitalH Auto (RBC) [Entitic mass]on 89-91-0322DMV (RBC) [Entitic mass]30.0 pg25.9-34.0[facility] Medical CenterMCHC Auto (RBC) [Mass/Vol]on 23-65-8114ZXVQ (RBC) [Mass/Vol]32.9 g/dL 29.9-35.2FPremier Health Miami Valley HospitalV Auto (RBC) [Entitic vol]on 68-06-9311BUT (RBC) [Entitic vol]91.1 fL80.0-94.0[facility] Medical CenterNo Panel Informationon 462804-Gdbiiaa Vitamin D Total36.9 ng/mL [facility] CenterComment on above:<20 ng/mL Vit D - <30 ng/mL Vit D whgjfunewrfh43-601 ng/mL Vit D sufficient>100 ng/mL Potential ToxicityParathyroid Hormone (Intact)39 pg/gD05-92DtismvnkaPremier Health Atrium Medical CenterComment on above:Performed at: - Lab[address] [id number] Director: Jose Ramon Arreola PhD, Phone: [phone] Phosphorus Level3.7 mg/dL2.6-4.7FKettering Health TroyUrine Occult BloodSMALLAbnormalNEGATIVEPremier Health Atrium Medical CenterUrine Random Quhekavpki365.48 mg/dL20.00-300.00[facility] Medical CenterPlatelet mean volume Auto (Bld) [Entitic vol]on 87-10-4198Stsjouoe mean volume (Bld) [Entitic vol]11.1 fL9.5-13.5FKettering Health TroyPlatelets Auto (Bld) [#/Vol] on 60-91-9787Ubvgouuhs (Bld) [#/Vol]180 10 3/cK584-106AbaulccwzPremier Health Atrium Medical CenterRBC Auto (Bld) [#/Vol]on 80-68-3743ZFQ (Bld) [#/Vol]4.47 10 6/uLLow 4.70-6.10[facility] Systemerum or plasma albumin/globulin mass ratioon 56-87-2858Swkzfgi/Globulin [Mass ratio]1.1 {ratio}[facility] Health Systemerum or plasma anion gap determinationon 11-40-5349Porjy gap [Moles/Vol]11.5 mmol/LFKettering Health TroyUrine protein/creatinine ratioon 07-05-3102Oyltnnp/Creatinine (U) [Ratio]0.08[facility] Medical CenterPSA (OUTSIDE)on 25-09-8979Hvhkotmsh ClinicHighlands Medical Center surgeryon 92-75-8520Uhjihlf obtained: written [place] Protocol: Procedure explained and questions answered to [...] sodium bicarbonate Procedure Details: Biopsy accession number: [id number] Date of biopsy: 09/27/2023 Frozen section biopsy [...] hematoxylin and eosin and also immunostained with [place]-1. A 3 mm biopsy of adjacent tissue was taken and used to establish a baseline with hematoxylin and eosin and [place]-1 immunostains. The debulk showed melanoma in situ. The specimen was processed using immunostains with [place]-1. Tumor features identified on Mohs section: no [...] functional considerations per the NCCN guidelines Discussion/Procedural Comments:[facility] Work Phone: UnPremier Health Atrium Medical Center Work Phone: Surgical pathology studyon [id number] pathology studyPathology report.total SEE COMMENT Dermatopathology Report Case: [id number] Authorizing Provider: Goyo Valladares MD PhD Collected: 10/07/2023 1213 Ordering Location: [facility] Received: 10/07/2023 1213 [facility] Pathologist: Daphney Ho MD Specimen: OUTSIDE BLOCK(S)/SLIDE(S), 3 SLIDES, [facility] #[id number] (BX: 09/27/2023) Path report.final diagnosis SEE COMMENT 3 SLIDES, [facility] #[id number] (BX: 09/27/2023) SKIN, RIGHT FOREHEAD, SHAVE BIOPSY: [...] SKIN. MELANOMA IN SITU. 4.0X2.2CM PREV PATH# [id number], [id number] IRREGULAR PIGMENTED PAPULE. Path report.gross observation SEE COMMENT A. OUTSIDE BLOCK(S)/SLIDE(S). Received for consultation from [facility] are three slides labeled [id number] (BX: 09/27/2023) along with the corresponding pathology report.[facility] AmbulatoryComment on above:Order Comment: Materials Received: 3 SLIDES, [facility] #[id number] (BX: 09/27/2023)Alanine aminotransferase [Enzymatic activity/volume] in Serum or PlasmaOrdered By: Jillian Edwards on 75-03-5958OFB [Catalytic activity/Vol]19 U/L7-52Prem[facility] Medical CenterAlbumin [Mass/volume] in Serum or Plasma by Bromocresol green (BCG) dye binding metho Ordered By: Jillian Edwards on 47-83-2063Cqzwjqv BCG dye [Mass/Vol]4.3 g/dL3.5-5.7 [facility] Medical CenterAlkaline phosphatase [Enzymatic activity/volume] in Serum or PlasmaOrdered By: Jillian Edwards on 59-49-1342AMW [Catalytic activity/Vol]48 U/X71-449SmkfereagPremier Health Atrium Medical CenterAspartate aminotransferase [Enzymatic activity/volume] in Serum or PlasmaOrdered By: Jillian Edwards on 98-78-5186FRC [Catalytic activity/Vol]19 U/O62-49OqqnisjanPremier Health Atrium Medical CenterBilirubin.total [Mass/volume] in Serum or PlasmaOrdered By: Jillian Edwards on 36-41-0663Cfayxqwcv [Mass/Vol]0.4 mg/dL0.3-1.0[facility] Medical CenterCalcium [Mass/volume] in Serum or PlasmaOrdered By: Jillian Edwards on 64-77-9031Zmblcqf [Mass/Vol]9.1 mg/dL8.6-10.3FKettering Health TroyCarbon dioxide, total [Moles/volume] in Serum or PlasmaOrdered By: Jillian Edwards on 22-22-4313JU4 [Moles/Vol]31.4 mmol/L21.0-31.0[facility] Medical CenterChloride [Moles/volume] in Serum or PlasmaOrdered By: Jillian Edwards on 91-36-7664Cpznlpuz [Moles/Vol]106 mmol/R79-793XnihbbbluPremier Health Atrium Medical CenterCreatinine [Mass/volume] in Serum or PlasmaOrdered By: Jillian Edwards 69-15-2557Duaviljvbb [Mass/Vol]1.04 mg/dL0.70-1.30[facility] Medical CenterGlobulin Calc (S) [Mass/Vol]Ordered By: Jillian Edwards on 45-85-4934Tjmpaiof (S) [Mass/Vol]2.8 g/dLPremier Health Atrium Medical CenterGlucose [Mass/volume] in Serum or PlasmaOrdered By: Jillian Edwards on 36-97-1799Qssruoe [Mass/Vol]140 mg/jY56-756DwekpsbekPremier Health Atrium Medical CenterComment on above:ADA recommended reference rangeRandom Glucose Reference Range is dependent on time and content of last meal. Glucose of more than 200 mg/dL in a nonstressed, ambulatory subject supports the diagnosisof Diabetes Mellitus.No Panel InformationOrdered By: Jillian Edwards on 84-12-2851Hestroitw GFR (CKD-EPI)> 60.0 mL/MinPremier Health Atrium Medical CenterPharmacy Creatinine Clearance (ChemN/AFKettering Health TroyPotassium [Moles/volume] in Serum or PlasmaOrdered By: Jillian Edwards on 47-65-0114Jibcvalre [Moles/Vol]4.4 mmol/L3.5-5.1FKettering Health TroyProtein [Mass/volume] in Serum or PlasmaOrdered By: Jillian Edwards on 09-94-1360Sirnazs [Mass/Vol]7.1 g/dL6.4-8.9[facility] Serum or plasma albumin/globulin mass ratioOrdered By: Jillian Edwards on 05-35-0817Efozfxb/Globulin [Mass ratio]1.5 {ratio}[facility] Systemerum or plasma anion gap determinationOrdered By: Jillian Edwards on 86-90-7454Vcmql gap [Moles/Vol]9.0 mmol/L6.0-15.0Hol[facility] Health Systemodium [Moles/volume] in Serum or PlasmaOrdered By: Jillian Edwards on 18-18-6044Gmhulz [Moles/Vol]142 mmol/F131-418XiqdmjynqPremier Health Atrium Medical Center Urea nitrogen [Mass/volume] in Serum or PlasmaOrdered By: Jillian Edwards on 00-75-9182Tell nitrogen [Mass/Vol]17 mg/dL7-25[facility] Alanine aminotransferase [Enzymatic activity/volume] in Serum or PlasmaOrdered By: Jillian Edwards on 25-23-2453LDM [Catalytic activity/Vol]22 U/L7-52[facility] Medical CenterAlbumin [Mass/volume] in Serum or Plasma by Bromocresol green (BCG) dye binding methoOrdered By: Jillian Edwards on 85-52-8748Smjqqrd BCG dye [Mass/Vol]4.3 g/dL3.5-5.7FKettering Health TroyAlkaline phosphatase [Enzymatic activity/volume] in Serum or PlasmaOrdered By: Jillian Edwards on 14-90-0377YLP [Catalytic activity/Vol]44 U/P40-090BcqbmcqaxPremier Health Atrium Medical CenterAspartate aminotransferase [Enzymatic activity/volume] in Serum or PlasmaOrdered By: Jillian Edwards on 52-56-5416UQH [Catalytic activity/Vol]20 U/L 13-39Prem[facility] Medical CenterBilirubin Test strip Ql (U)Ordered By: Jillian Edwards on 50-53-0230Ioqoxoooy Ql (U)NegativeNegativePremier Health Atrium Medical CenterBilirubin.total [Mass/volume] in Serum or PlasmaOrdered By: Jillian Edwards on 60-62-6785Znndwvavx [Mass/Vol]0.7 mg/dL0.3-1.0[facility] CenterCalcium [Mass/volume] in Serum or PlasmaOrdered By: Jillian Edwards on 29-45-9863Gonjcoj [Mass/Vol]8.7 mg/dL8.6-10.3FKettering Health TroyCarbon dioxide, total [Moles/volume] in Serum or PlasmaOrdered By: Jillian Edwards on 74-04-6851QZ3 [Moles/Vol]27.0 mmol/L21.0-31.0[facility] Medical CenterChloride [Moles/volume] in Serum or PlasmaOrdered By: Jillian Edwards 16-36-9256Nubweskd [Moles/Vol]104 mmol/R17-177AwyelpwxqPremier Health Atrium Medical CenterColor Auto (U)Ordered By: Jillian Edwards on 27-85-7034Hrkkk (U)YellowYellow [facility] CenterCreatinine [Mass/volume] in Serum or Plasma Ordered By: Jillian Edwards on 66-32-4791Uvqpecfzrk [Mass/Vol]1.25 mg/dL0.70-1.30 [facility] CenterCreatinine [Mass/volume] in UrineOrdered By: Jillian Edwards on 98-21-1279Nhplxetrwh (U) [Mass/Vol]143.0 mg/dL14.0-26.0[facility] Medical CenterErythrocyte distribution width Auto (RBC) [Ratio]Ordered By: Jillian Edwards on 43-79-9584Itzfrrixlvi distribution width (RBC) [Ratio]13.5 %12.0-14.8[facility] Medical CenterGlobulin Calc (S) [Mass/Vol]Ordered By: Jillian Edwards on 15-07-5627Backlcva (S) [Mass/Vol]2.5 g/dLPremier Health Atrium Medical CenterGlucose [Mass/volume] in Serum or PlasmaOrdered By: Jillian Edwards on 19-76-9104Pqhgivi [Mass/Vol]141 mg/bT33-049XfaeuzbvqPremier Health Atrium Medical Center Comment on above:ADA recommended reference rangeRandom Glucose Reference Range is dependent on time and content of last meal. Glucose of more than 200 mg/dL in a nonstressed, ambulatory subject supports the diagnosisof Diabetes Mellitus. Hematocrit Auto (Bld) [Volume fraction]Ordered By: Jillian Edwards on 12-25-2022 Hematocrit (Bld) [Volume fraction]44.6 %38.8-50.0[facility] Medical CenterHemoglobin [Mass/volume] in BloodOrdered By: Jillian Edwards on 12-25-2022 Hemoglobin (Bld) [Mass/Vol]14.8 g/dL13.0-17.0[facility] Ketones Auto test strip (U) [Mass/Vol]Ordered By: Jillian Edwards on 12-25-2022 Ketones (U) [Mass/Vol]NegativeNegativePremier Health Atrium Medical Center Leukocytes [#/volume] corrected for nucleated erythrocytes in Blood by Automated counOrdered By: Jillian Edwards on 76-83-8839PEQ corrected for nucl RBC Auto (Bld) [#/Vol]6.4 10*3/uL4.1-10.5FPremier Health Miami Valley HospitalH Auto (RBC) [Entitic mass]Ordered By: Jillian Edwards on 11-84-1568WRH (RBC) [Entitic mass]29.7 pg27.5-35.2FKettering Health TroyMCHC Auto (RBC) [Mass/Vol]Ordered By: Jillian Edwards on 33-64-5213KOIU (RBC) [Mass/Vol]33.3 g/dL32.5-35.6FKettering Health TroyMCV Auto (RBC) [Entitic vol]Ordered By: Jillian Edwards on 09-56-5622KNZ (RBC) [Entitic vol]89.3 fL83.5-101Prem[facility] Medical CenterNitrite Test strip Ql (U)Ordered By: Jillian Edwards on 22-55-6341Mvdkfol Ql (U)NegativeNegativePremier Health Atrium Medical CenterNo Panel InformationOrdered By: Jillian Edwards on 70-18-8221Dkcuacvzk GFR (CKD-EPI)59.308 mL/MinPremier Health Atrium Medical CenterPharmacy Creatinine Clearance (ChemN/AFKettering Health TroyParathyrin.intact [Mass/volume] in Serum or PlasmaOrdered By: Jillian Edwards on 94-39-6488Vlujhfrpsh.intact [Mass/Vol]75.8 pg/yH41-45AaczsooeePremier Health Atrium Medical CenterPhosphate [Mass/volume] in Serum or PlasmaOrdered By: Jillian Edwards on 78-49-6536Chxxlxsrh [Mass/Vol]2.9 mg/dL3.7-7.2FKettering Health TroyPlatelet mean volume Auto (Bld) [Entitic vol]Ordered By: Jillian Edwards on 72-50-7132Viiuphil mean volume (Bld) [Entitic vol]9.0 fL6.6-10.1 [facility] Medical CenterPlatelets Auto (Bld) [#/Vol]Ordered By: Jillian Edwards on 08-06-5622Qnazhzhym (Bld) [#/Vol]165 10*3/uO768-364EwqplblcaPremier Health Atrium Medical CenterPotassium [Moles/volume] in Serum or PlasmaOrdered By: Jillian Edwards on 32-56-8042Pnubzqkgh [Moles/Vol]4.1 mmol/L3.5-5.1FKettering Health TroyProtein Auto test strip (U) [Mass/Vol]Ordered By: Jillian Edwards on 05-15-4584Qzkeehy (U) [Mass/Vol]NegativeNegativePremier Health Atrium Medical CenterProtein [Mass/volume] in Serum or PlasmaOrdered By: Jillian Edwards on 94-29-6853Hmlooec [Mass/Vol]6.8 g/dL6.4-8.9[facility] Protein [Mass/volume] in UrineOrdered By: Jillian Edwards on 97-49-7699Ooenbhf (U) [Mass/Vol]8 mg/dL0-9Prem[facility] Medical CenterRBC Auto (Bld) [#/Vol] Ordered By: Jillian Edwards on 58-83-7136UCG (Bld) [#/Vol]5.00 10*6/uL3.90-5.60 [facility] Systemerum or plasma albumin/globulin mass ratio Ordered By: Jillian Edwards on 84-26-8062Mvrpdjl/Globulin [Mass ratio]1.7 {ratio} [facility] Systemerum or plasma anion gap determinationOrdered By: Jillian Edwards on 40-71-0136Frfnm gap [Moles/Vol]11.1 mmol/L6.0-15.0Hol[facility] Health Systemodium [Moles/volume] in Serum or PlasmaOrdered By: Jillian Edwards on 54-82-8014Ligzae [Moles/Vol]138 mmol/P540-058IkobrutreHolzer Health Systempecific gravity Auto test strip (U) [Rel density]Ordered By: Jillian Edwards on 50-15-9276Wntfvfqm gravity (U) [Rel density]1.0191.001-1.030Prem[facility] Medical CenterUrate [Mass/volume] in Serum or PlasmaOrdered By: Jillian Edwards on 71-63-0453Haayd [Mass/Vol]7.6 mg/dL2.4-7.6FKettering Health TroyUrea nitrogen [Mass/volume] in Serum or PlasmaOrdered By: Jillian Edwards 89-26-7358Sgug nitrogen [Mass/Vol]18 mg/dL7-25[facility] Urine clarity by refractometry automatedOrdered By: Jillian Edwards on 12-25-2022 Clarity Refractometry automated (U)ClearClearFKettering Health Troy Urine glucose measurement by automated test strip (mass/volume)Ordered By: Jillian Edwards 38-37-5343Lbseust Auto test strip (U) [Mass/Vol]Normal mg/dLNormal [facility] CenterUrine hemoglobin detection by automated test stripOrdered By: Jillian Edwards on 09-70-7154Neaeunruet Auto test strip Ql (U) NegativeNegativePremier Health Atrium Medical CenterUrine leukocyte esterase detection by automated test stripOrdered By: Jillian Edwards on 17-59-4486Hhayyotcz esterase Auto test strip Ql (U)NegativeNegativePremier Health Atrium Medical CenterUrine protein/creatinine ratioOrdered By: Jillian Edwards on 12-25-2022 Protein/Creatinine (U) [Ratio]56 mg/g{Cre}0-200[facility] Urobilinogen Auto test strip (U) [Mass/Vol]Ordered By: Jillian Edwards on 97-59-4429Bnckgxvmildk (U) [Mass/Vol]Normal mg/dLNormalPremier Health Atrium Medical CenterVitamin D+Metabolites [Mass/volume] in Serum or PlasmaOrdered By: Jillian Edwards on 80-63-7853Qirmzfc D+Metabolites [Mass/Vol]24.7 ng/wH11-361 [facility] Medical CenterComment on above:VITAMIN D STATUS 25(OH)VITAMIN D RANGE (ng/mL) Deficient <20 Insufficient 20 to <54Xefjgegqnp85 to 100Reference: Noemi MF,Bandar CHAUHAN, Gregg MERAZ, et al. Evaluation,treatment, and prevention of vitamin D deficiency; an Endocrine Society clinical practice guideline. JCEM. 2010; 96(7):1911-30.pH Auto test strip (U)Ordered By: Jillian Edwards on 69-90-2487uR (U)5.5 [pH]5.0-9.0Prem[facility] Medical CenterCOVID/FLU/RSV RT-PCRon 05-08-5173KXNU-CoV-2 (COVID-19) RNA GERMAN+probe Ql (Unsp spec)NegativeWaffle Other COVID/FLU/RSV RT-PCRNegativeWeComics Other Quick Strepon 08-28-2022S. pyogenes Org specific cx Ql (Throat)NegativeWeComics Other Quick [place] Depollution Other CT CSPINE WO CONon 86-03-7078UR CSPINE WO CON EXAMINATION: CT CSPINE WO [...] Electronically authenticated by: NATHAN URENA Date: 2022-03-11 14:35NoUpper Valley Medical CenterARS-CoV-2 (COVID-19) RNA GERMAN+probe Ql (Resp)on 02-28-2022 SARS-CoV-2 (COVID-19) RNA GERMAN+probe Ql (Unsp spec)NegativeNoellett memorial hospital Ullink Other 425-1434Aktnf-11 PCR ([facility])on 98-34-0770AFPJ-CoV-2 (COVID- 19) RNA GERMAN+probe Ql (Unsp spec)Not detectedNormalNOT DETECTEDThe Kettering HealthComment on above:Result Comment: This test is not yet approved or cleared by the [place] FDA. When there are no FDA-approved or cleared tests available, and other criteria are met, FDA can make tests available under an emergency access mechanism called an Emergency Use Authorization (EUA). The EUA for this test is supported by the [employer] Supervisor of Health and Human Service's (HHS's) declaration [...] of clinical signs and symptoms consistent with SARS-CoV-2.Performed By: #### CVDTB #### [facility] [address] [address] [address] Livier Schultz Quick Testingon 51-10-5281TioqraZjmvusqoUpffz Ullink Other Vital Signs Date TimeVital SignValuePerforming JyvyvywllOtspondi92-65-8917 08:51-0400Body hkmpox924.3 Yuliana Keyes MD Work Phone: [phone] [place], [place] [address]Qnuqyhzcop32-65-3540 08:51-0400Body mass index (BMI) [Ratio]27.76 kg/q3GewfmNatan Keyes MD Work Phone: [phone] [place], [place] [address]Hemdiuddhe40-85-5542 08:51-0400Body yngopa88.28 kgNatan Keyes MD Work Phone: [phone] [place], [place] [address]Pmtjsmertd92-96-5604 08:51-0400Diastolic blood azjggqpo49 mm[Hg]Natan Keyes MD Work Phone: [phone] [place], [place] [address]Qiiwtttifr87-06-0897 08:51-0400Heart rate56 /min Natan Keyes MD Work Phone: [phone] [place], [place] [address]Xkppetowev97-18-7469 08:51-6474BiH1% (BldA) [Mass fraction]97 %Natan Keyes MD Work Phone: [phone] [place], [place] [address]Nrqdzurmno18-70-5855 08:51-0400Systolic blood anrkwsvf136 mm[Hg]Natan Keyes MD Work Phone: [phone] [place], [place] [address]Kslmssjuje61-48-2794 09:13-0400Body ztwrgy318.26 Yuliana Keyes MD Work Phone: [phone] [place], [place] 6805907-23-2025 09:13-0400 Body mass index (BMI) [Ratio]28.2 kg/w4BimfyNatan Keyes MD Work Phone: [phone] [place], [place] 4614307-23-2025 09:13-0400 Body booscd77.8 kgNatan Keyes MD Work Phone: [phone] [place], [place] 4614307-23-2025 09:13-0400 Diastolic blood lhxwflan55 mm[Hg]Natan Keyes MD Work Phone: [phone] [place], [place] 4614307-23-2025 09:13-0400 Heart rate59 /minNatan Keyes MD Work Phone: [phone] [place], [place] 4614307-23-2025 09:13-0400 Respiratory rate18 /minNatan Keyes MD Work Phone: [phone] [place], [place] 4614307-23-2025 09:13-0400 SaO2% (BldA) [Mass fraction]96 %Natan Keyes MD Work Phone: [phone] [place], [place] 4614307-23-2025 09:13-0400 Systolic blood nxhkgwfu323 mm[Hg]Natan Keyes MD Work Phone: [phone] [place], [place] 4614307-15-2025 15:33-0400 Body .3 cmRcesar Keyes MD Work Phone: [phone] [place], [place] 4572407-15-2025 15:33-0400Body mass index (BMI) [Ratio]28.65 kg/s0EfzrkNatan Keyes MD Work Phone: [phone] [place], [place] [address]Sgahwqmsti43-82-0690 15:33-0400Body kg Natan Keyes MD Work Phone: [phone] [place], [place] [address]Grlcekexgo72-69-0252 15:33-0400Diastolic blood onrvlrqj39 mm[Hg]Natan Keyes MD Work Phone: [phone] [place], [place] [address]Vejobrarsj75-02-2704 15:33-0400Heart rate68 /min Natan Keyes MD Work Phone: [facility] CenterYmcxvxhoqq88-42-8237 15:33-0405EkJ5% (BldA) [Mass fraction]95 %Natan Keyes MD Work Phone: noResearch Belton HospitalIbtqqfifqq88-61-0541 15:33-0400Systolic blood mm[Hg]Natan Keyes MD Work Phone: [facility] CenterGxyfsmaqpw43-18-5450 10:56-0400Body temperature 97.3 [degF]SHIRLEY Beck MD Work Phone: [facility]05-15-2025 10:56-0400Body ndsvqa95.4 kgSHIRLEY Beck MD Work Phone: [facility]05-15-2025 10:56-0400Diastolic blood rjhsyzhc56 mm[Hg]SHIRLEY Beck MD Work Phone: [facility]05-15-2025 10:56-0400Heart rate61 /min SHIRLEY Beck MD Work Phone: [facility]05-15-2025 10:56-0400Respiratory rate 18 /QamarSHIRLEY Beck MD Work Phone: [facility]05-15-2025 10:56-5559RnB3% (BldA) [Mass fraction]97 %SHIRLEY Beck MD Work Phone: [facility]05-15-2025 10:56-0400Systolic blood purfxvah177 mm[Hg]SHIRLEY Beck MD Work Phone: [facility]04-08-2025 13:51-0400Body owrnuq472.3 Yuliana Keyes MD Work Phone: [facility] CenterAeyfbyhlpr90-04-3720 13:51-0400Body mass index (BMI) [Ratio]29.68 kg/d0EinycNatan Keyes MD Work Phone: [facility] HospitalTfdgoqafzv71-57-0501 13:51-0400Body vbeknq72.17 kgNatan Keyes MD Work Phone: [facility] HospitalIddqjinftz46-88-1848 13:51-0400Diastolic blood jmlsmilx88 mm[Hg]Natan Keyes MD Work Phone: [facility] CenterBowmotfsbv72-72-2075 13:51-0400Heart rate73 /min Natan Keyes MD Work Phone: [facility] HospitalAqxhplletm19-89-8031 13:51-1473BlL6% (BldA) [Mass fraction]92 %Natan Keyes MD Work Phone: [facility] HospitalUafhtetyou89-74-8097 13:51-0400Systolic blood ztrluiwc838 mm[Hg]Natan Keyes MD Work Phone: [facility] CenterPmzvcuydgx34-53-0068 10:44-0400Body temperature 97.7 [degF]Yas Proctor [employer] Work Phone: [facility] CenterGnsifpaudr08-04-0123 10:44-0400Diastolic blood vpfgnepa78 mm[Hg]Yas Proctor [employer] Work Phone: [facility] CenterMrtejpdluk01-39-5601 10:44-0400Heart rate69 /min Yas Proctor [employer] Work Phone: [facility] CenterKgjjmhmwqy72-29-5242 10:44-0795XeQ0% (BldA) [Mass fraction]95 %Yas Proctor [employer] Work Phone: [facility] CenterRxrgtcfrka18-27-0539 10:44-0400Systolic blood mm[Hg]Yas Proctor [employer] Work Phone: [facility] CenterNfnvtmegkc16-94-8153 13:35-0500Body ryvexv072.3 Yuliana Kyees MD Work Phone: [facility] CenterRcnqbxoyee02-81-9543 13:35-0500Body mass index (BMI) [Ratio]29.68 kg/x7QlbbnNatan Keyes MD Work Phone: [facility] CenterUsxaegeatj78-26-2399 13:35-0500Body vjixne31.17 kgNatan Keyes MD Work Phone: [facility] HospitalJmnanrxllp18-14-5134 13:35-0500Diastolic blood ijktqeef55 mm[Hg]Natan Keyse MD Work Phone: [facility] CenterYneasadece43-02-7247 13:35-0500Heart lmcj993 /min Natan Keyes MD Work Phone: [facility] CenterRdjjqpqxts07-87-2186 13:35-3993OjI1% (BldA) [Mass fraction]94 %Natan Keyes MD Work Phone: [facility] CenterZhnqwxpnew28-50-2728 13:35-0500Systolic blood mwenloux984 mm[Hg]Natan Keyes MD Work Phone: [facility] CenterMafwteicth34-21-6401 15:15-0500Body jdoghb558.3 cmMerrill Mcrae DPM Work Phone: [facility] CenterWmcvzpuwow44-05-5775 15:15-0500Body mass index (BMI) [Ratio]29.68 kg/z6Jtypkdbo Brown DPM Work Phone: [facility] CenterOyfandrhys50-20-2270 15:15-0500Body tdivln36.17 kgDariusolvin Mcrae DPM Work Phone: [facility] CenterAqfofdarge94-94-6427 15:15-0500Respiratory rate16 /minJoliesilva Mcrae DPM Work Phone: [facility] CenterMdqqruyrkf60-52-3067 13:35-0500Body vpnafu838.3 Yuliana Keyes MD Work Phone: [facility] CenterXhwdwjlrxn72-75-7658 13:35-0500Body mass index (BMI) [Ratio]29.68 kg/c3YieecNatan Keyes MD Work Phone: [facility] CenterTdycjzgeow42-05-8869 13:35-0500Body dvivnq88.17 kgNatan Keyes MD Work Phone: [facility] CenterAsqnpgykhz93-15-2289 13:35-0500Diastolic blood jcvbsifd10 mm[Hg]Natan Keyes MD Work Phone: [facility] HospitalKfehsqohwi69-44-4462 13:35-0500Heart rate89 /min Natan Keyes MD Work Phone: [facility] HospitalLtfcvmrxqe77-50-3419 13:35-2428CeV9% (BldA) [Mass fraction]93 %Natan Keyes MD Work Phone: [facility] HospitalZkbjfneuyg43-58-7610 13:35-0500Systolic blood uftgdjfc058 mm[Hg]Natan Keyes MD Work Phone: [facility] HospitalGxlqtckrne05-44-5094 13:42-0500Body ddjbos682.3 cmLeonie Valladares [employer] Work Phone: [facility] HospitalIbhjbiojrr56-29-3907 13:42-0500Body mass index (BMI) [Ratio]29.71 kg/m2Leonie Valladares [employer] Work Phone: [facility] [id number] 13:42-0500Body gscorx63.26 kgLeonie Valladares [employer] Work Phone: [facility] CenterDowwwmslqu20-56-4996 13:42-0500Diastolic blood pvvuigyo15 mm[Hg]Leonie Omkar [employer] Work Phone: [facility] CenterPraqdubssn76-15-9487 13:42-0500Heart jinn895 /min Leonie Valladares [employer] Work Phone: [facility] CenterOqizqlfjxf73-76-3158 13:42-0500Respiratory rate16 /minKisimon Valladares [employer] Work Phone: [facility] CenterLtjcmcdjml83-98-9635 13:42-1118AbD5% (BldA) [Mass fraction]96 %Leonie Omkar [employer] Work Phone: [facility] HospitalVmjwgvheik71-11-4765 13:42-0500Systolic blood dmaveipm637 mm[Hg]Leonie Valladares [employer] Work Phone: [facility] CenterMwntnfmoxr58-87-8072 09:25-0500Body xfishs233.3 cmMerrill Mcrae DPM Work Phone: [facility] HospitalSdysuhxjfv28-31-1603 09:25-0500Body mass index (BMI) [Ratio]29.39 kg/u7HvyegadoMerrill Mcrae DPM Work Phone: [facility] HospitalQwzmxzsueu22-08-3615 09:25-0500Body cmkvuq64.27 kgMerrill Mcrae DPM Work Phone: [facility] CenterNenliyxxiz58-09-2398 09:25-0500Respiratory rate16 /minMerrill BOLESM Work Phone: [facility] HospitalGiuzkltgjf58-97-4062 09:42-0500Body temperature 98.4 [degF]Natan Keyes MD Work Phone: [facility]12-27-2024 09:42-0500 Diastolic blood emalqlzc62 mm[Hg]Natan Keyes MD Work Phone: 1(472)700-[address] [place], [place] [address]6512-27-2024 09:42-0500 Heart rate63 /minNatan Keyes MD Work Phone: [phone]12-27-2024 09:42-0500 Respiratory rate18 /minNatan Keyes MD Work Phone: 1(669)344-[address] [place], [place] 0886512-27-2024 09:42-0500 SaO2% (BldA) [Mass fraction]96 %Natan Keyes MD Work Phone: 1(959)318-[address] [place], [place] 0886512-27-2024 09:42-0500 Systolic blood tcoknlsv382 mm[Hg]Natan Keyes MD Work Phone: 1(863)590-[address] [place], [place] 6805912-23-2024 09:41-0500 Body avpqge134.3 cmRcesar Keyes MD Work Phone: [facility] CenterGxgsxammmg66-81-1941 09:41-0500Body mass index (BMI) [Ratio]29.39 kg/v2BgnnvNatan Keyes MD Work Phone: [facility] CenterZykjxbncoa71-61-9282 09:41-0500Body qtivjq64.27 kgNatan Keyes MD Work Phone: [facility] CenterGlteomupxf93-66-2221 09:41-0500Diastolic blood ewioyoik90 mm[Hg]Natan Keyes MD Work Phone: [facility] CenterFurlzargvl74-28-7355 09:41-0500Heart rate85 /min Natan Keyes MD Work Phone: [facility] CenterFyencnexof35-79-9848 09:41-5297QrK1% (BldA) [Mass fraction]93 %Natan Keyes MD Work Phone: [facility] CenterEvzmiaubrf19-34-9623 09:41-0500Systolic blood ernflohq782 mm[Hg]Natan Keyes MD Work Phone: [facility] CenterAuhqxyxgvo63-58-9878 15:06-0400Body mass index (BMI) [Ratio]29.15 kg/d8ShbodiSubha Neal [employer] Work Phone: [facility] CenterGsgujmbzup74-48-9374 15:06-0400Body kokxcm04.54 kgSubha Neal [employer] Work Phone: [facility] CenterJsmusrapko05-86-6729 15:06-0400Diastolic blood hcdjgwoa31 mm[Hg]Subha Neal [employer] Work Phone: [facility] CenterNavylribob17-74-6763 15:06-0400Heart rate76 /min Subha Neal [employer] Work Phone: [facility] CenterZrcjucxjkr04-91-5551 15:06-0400Respiratory rate17 /minSleigh Neal [employer] Work Phone: [facility] CenterEorvxqrfjy73-89-9441 15:06-7818TxL7% (BldA) [Mass fraction]95 %Subha Neal [employer] Work Phone: [facility] CenterSphbilvpcc33-38-8379 15:06-0400Systolic blood dufvcixj932 mm[Hg]Subha Neal [employer] Work Phone: [facility] CenterJbmqkzkzbj10-78-4208 09:13-0400Body .26 cm[facility]07-24-2024 09:13-0400Body mass index (BMI) [Ratio]29.4 kg/c8MowqozbrjPremier Health Atrium Medical Center07-24-2024 09:13-0400Body vexsemkkxtc08.7 [degF][facility]07-24-2024 09:13-0400Body geodmg32.32 kgPrem[facility] Health [facility] Center07-24-2024 09:13-0400Diastolic blood mm[Hg][facility]07-24-2024 09:13-0400 Heart rate64 /[facility]07-24-2024 09:13-0400 Respiratory rate16 /[facility]07-24-2024 09:13-0400 SaO2% (BldA) [Mass fraction]98 %[facility]07-24-2024 09:13-0400Systolic blood biqauroq475 mm[Hg][facility] 03-10-2024 10:49-0400Blood Pressure LocationBernardo RODGERS [facility]07-19-2024 10:49-0400Diastolic blood iskkgxhd30 mm[Hg]Bernardo RODGERS [facility]07-19-2024 10:49-0400Heart rate71 /Ismael RODGERS [facility]07-19-2024 10:49-0400Respiratory rate16 /Ismael RODGERS [facility]07-19-2024 10:49-0400Systolic blood mm[Hg]Bernardo RODGERS [facility]06-03-2024 13:16-0400Body dcromk026.26 cmPrem[facility]06-03-2024 13:16-0400Body mass index (BMI) [Ratio]29.7 kg/e7WmenemfpbPremier Health Atrium Medical Center06-03-2024 13:16-0400Body vhdachmmtyp95.2 [degF][facility]06-03-2024 13:16-0400Body moazah88.28 kgPrem[facility] Health [facility]06-03-2024 13:16-0400Heart rate76 /[facility]06-03-2024 13:16-0400Respiratory rate18 /[facility]06-03-2024 13:16-6442AoQ4% (BldA) [Mass fraction]92 %[facility]05-08-2024 10:16-0400Body otxloythfta20.39 [degF]SHIRLEY Beck MD Work Phone: [facility]05-08-2024 10:16-0400Body kyubvl13.5 kgSHIRLEY Beck MD Work Phone: [facility]05-08-2024 10:16-0400Diastolic blood cyndwjiq99 mm[Hg]SHIRLEY Beck MD Work Phone: [facility]05-08-2024 10:16-0400Heart rate67 /min SHIRLEY Beck MD Work Phone: [facility]05-08-2024 10:16-0400Respiratory rate 18 /QamarSHIRLEY Beck MD Work Phone: [facility]05-08-2024 10:16-7711CoF1% (BldA) [Mass fraction]96 %SHIRLEY Beck MD Work Phone: [facility]05-08-2024 10:16-0400Systolic blood gxwtyuka586 mm[Hg]SHIRLEY Beck MD Work Phone: [facility]03-13-2024 08:32-0400Diastolic blood gkdrkigp67 mm[Hg]Goyo Valladares MD PhD Work Phone: [facility]03-13-2024 08:32-0400 Heart rate67 /minGoyo Valladares MD PhD Work Phone: [facility]03-13-2024 08:32-0400 Systolic blood luqsiyfd929 mm[Hg]Goyo Valladares MD PhD Work Phone: [facility]01-24-2024 08:40-0500 Body dyjjld967.26 Tammie Anabelkristyn Other [employer] [place] [employer] Other 264772-32-3501 08:40-0500Body mass index (BMI) [Ratio] 29.21 kg/m2Jillian Edwards Other [employer] Other 01-24-2024 08:40-0500Body jpdfveaanod21.1 [degF]Jillian Edwards Other [employer] Other 01-24-2024 08:40-0500Body afhfmw69.72 kgJillian Edwards Other [employer] Other 01-24-2024 08:40-0500Diastolic blood fgrpachm53 mm[Hg] Jillian Edwards Other [employer] Other 01-24-2024 08:40-0500Respiratory rate18 /minJillian Edwards Other [employer] Other 01-24-2024 08:40-2673JmH9% (BldA) [Mass fraction]97 % Jillian Edwards Other [employer] Other 01-24-2024 08:40-0500Systolic blood jommvenk485 mm[Hg] Jillian Edwards Other [employer] Other 07-14-2023 12:15-0400Body wzmton456.26 cmSherif Hansel Other [employer] Other 07-14-2023 12:15-0400Body mass index (BMI) [Ratio] 28.68 kg/z5Gkknoc Zaky Other [employer] Other 07-14-2023 12:15-0400Body .09 kgSherif Hansel Other [employer] Other 07-14-2023 12:15-3314BwP4% (BldA) [Mass fraction]98 % Chuck Hamm Other [employer] Other 07-08-2023 10:35-0400Body jsdaju842.26 cmPamelalexis Torres Other [employer] Other 07-08-2023 10:35-0400Body mass index (BMI) [Ratio] 29.65 kg/j6Dielll Melissa Other [employer] Other 07-08-2023 10:35-0400Body ocbdnohajym78.3 [degF]Karine Torres Other [employer] Other 07-08-2023 10:35-0400Body xddejo26.08 kgPamariia Torres Other [employer] Other 07-08-2023 10:35-0400Diastolic blood hsspmygi11 mm[Hg] Karine Melissa Other [employer] Other 07-08-2023 10:35-0400Respiratory rate18 /minPalibraalexis Melissa Other [employer] Other 07-08-2023 10:35-5750QsT3% (BldA) [Mass fraction]94 % Karine Torres Other [employer] Other 07-08-2023 10:35-0400Systolic blood fbywwbtk056 mm[Hg] Karine Torres Other [employer] Other 05-31-2023 11:20-0400Body .26 cmAolga Edwards Other [place] [employer] Other 05-31-2023 11:20-0400Body mass index (BMI) [Ratio]29.3 kg/m2Jillian Edwards Other [place] [employer] Other 05-31-2023 11:20-0400Body kyoyusuwlmj03.2 [degF]Jillian Edwards Other [place] [employer] Other 05-31-2023 11:20-0400Body wdirkf09.99 kgJillian Edwards Other [place] [employer] Other 05-31-2023 11:20-0400Diastolic blood mm[Hg] Jillian Edwards Other [place] [employer] Other 05-31-2023 11:20-0400Respiratory rate18 /minJillian Edwards Other [place] [employer] Other 05-31-2023 11:20-3228AfO4% (BldA) [Mass fraction]96 % Jillian Edwards Other [place] [employer] Other 05-31-2023 11:20-0400Systolic blood qywofqfk055 mm[Hg] Jillian Hos Other [employer] Other 05-11-2023 13:21-0400Body hywvbgijupe71.5 [degF]SHIRLEY Beck MD Work Phone: [place] [address]-11-2023 13:21-0400Body aqbtgy08.81 kgSHIRLEY Beck MD Work Phone: [facility]05-11-2023 13:21-0400Diastolic blood llsjdwap95 mm[Hg]SHIRLEY Beck MD Work Phone: [facility]05-11-2023 13:21-0400Heart rate69 /min SHIRLEY Beck MD Work Phone: [facility]05-11-2023 13:21-0400Respiratory rate 18 /QamarSHIRLEY Beck MD Work Phone: [facility]05-11-2023 13:21-0760NeZ7% (BldA) [Mass fraction]97 %SHIRLEY Beck MD Work Phone: [facility]05-11-2023 13:21-0400Systolic blood mm[Hg]SHIRLEY Beck MD Work Phone: [facility]01-06-2023 10:30-0500Body .26 cmPamelalexis RomanMelissa Other [employer] Other 01-06-2023 10:30-0500Body mass index (BMI) [Ratio] 28.79 kg/t1Hkyxty Melissa Other [employer] Other 01-06-2023 10:30-0500Body mvmuozuvvty77.3 [degF]Karine Melissa Other [employer] Other 01-06-2023 10:30-0500Body vxjyxh86.45 kgKarine Romanmond Other [employer] Other 01-06-2023 10:30-0500Respiratory rate18 /minDestinilibraalexis Torres Other [employer] Other 01-06-2023 10:30-9270GsU2% (BldA) [Mass fraction]97 % Karine Torres Other [employer] Other 11-02-2022 11:00-0400Body olwskn943.26 cmAolga Edwards Other [employer] Other 11-02-2022 11:00-0400Body mass index (BMI) [Ratio] 29.86 kg/m2Jillian Vickarly Other [employer] Other 11-02-2022 11:00-0400Body yjztxotuspf31.7 [degF]Mihaicandy Vickarly Other [employer] Other 11-02-2022 11:00-0400Body sqtbwa87.72 kgJillian Grace Other [employer] Other 11-02-2022 11:00-0400Diastolic blood usprnxlr10 mm[Hg] Mihaicandy Vickarly Other [employer] Other 11-02-2022 11:00-0400Respiratory rate18 /minJillian Grace Other [employer] Other 11-02-2022 11:00-1717GsJ8% (BldA) [Mass fraction]96 % Mihaicandy Vics Other [employer] Other 11-02-2022 11:00-0400Systolic blood mm[Hg] Mihaicandy Vics Other [employer] Other 07-18-2022 10:02-0400Blood Pressure LocationPaemelina RODGERS [facility] 07-18-2022 10:02-0400Diastolic blood yjbaxhwz49 mm[Hg] Bernardo RODGERS [facility] 07-18-2022 10:02-0400Heart rate68 /minPaemelina RODGERS [facility] 07-18-2022 10:02-0400Systolic blood olepruzh793 mm[Hg] Bernardo RODGERS [facility] 07-15-2022 10:45-0400Body lapxil361.26 cmSni Hamm Other [employer] Other 07-15-2022 10:45-0400Body mass index (BMI) [Ratio] 29.18 kg/j5MkvlirChuck Hamm Other [employer] Other 07-15-2022 10:45-0400Body emrhmk07.63 kgChuck Hamm Other [employer] Other 07-15-2022 10:45-0400Diastolic blood lcmivebz05 mm[Hg] Chuck Hamm Other [employer] Other 07-15-2022 10:45-2455VxQ9% (BldA) [Mass fraction]95 % Chuck Hamm Other [employer] Other 07-15-2022 10:45-0400Systolic blood zojxkbhy214 mm[Hg] Chuck Hamm Other [employer] Other 07-09-2022 10:30-0400Body aukfcu031.26 Abel Torres Other [employer] Other 07-09-2022 10:30-0400Body mass index (BMI) [Ratio] 28.79 kg/z4OhwvbyKarine Torres Other [employer] Other 07-09-2022 10:30-0400Body homanqyzgtd40.4 [degF]Karine Romanmond Other [employer] Other 07-09-2022 10:30-0400Body asauvo94.45 kgKarine Torres Other [employer] Other 07-09-2022 10:30-0400Respiratory rate18 /minKarine Torres Other [employer] Other 07-09-2022 10:30-2895GoA3% (BldA) [Mass fraction]96 % Karine Romanmond Other [employer] Other 02-25-2022 13:00-0500Body .26 Chaka Hamm Other [employer] Other 02-25-2022 13:00-0500Body mass index (BMI) [Ratio] 30.03 kg/p1Tfwwkl Zaky Other [employer] Other 02-25-2022 13:00-0500Body melhkx04.26 kgShcoleranjith Hansel Other [employer] Other 02-25-2022 13:00-0500Diastolic blood mm[Hg] Chuck Hamm Other [employer] Other 02-25-2022 13:00-8989TuB9% (BldA) [Mass fraction]98 % Chuck Hamm Other [employer] Other 02-25-2022 13:00-0500Systolic blood xktypnax195 mm[Hg] Chuck Hamm Other [employer] Other 10-23-2021 10:00-0400Body pfumxf558.26 cmAnelli Thomas Other [employer] Other 10-01-2021 13:30-0400Body .26 cmPamelalexis Torres Other [employer] Other 10-01-2021 13:30-0400Body mass index (BMI) [Ratio] 30.27 kg/a2Cybzsnmariia Torres Other [employer] Other 10-01-2021 13:30-0400Body nitelzwdbkw72.1 [degF]Karine Torres Other [employer] Other 10-01-2021 13:30-0400Body tnziyz74.99 kgPamela Melissa Other [employer] Other 10-01-2021 13:30-0400Respiratory rate16 /minPamariia Torres Other [employer] Other 10-01-2021 13:30-7739LmB2% (BldA) [Mass fraction]94 % Karine Torres Other [place] [employer] Other Encounters Encounter DateEncounter TypeCare ProviderFacilityStart: 06-11-2025 End: 42-57-5141ypcjcrgghsKNCBM M ALDANot AvailableStart: 06-11-2025 End: 39-78-3790Qtzolf outpatient visit 25 minutesNatan Keyes MD Work Phone: [facility] MedinceComment on above:Type 2 diabetes mellitus with stage 3a chronic kidney disease, without long-term current use of insulin (HCC) (Primary Dx); Type 2 diabetes mellitus with chronic kidney disease, with long-term current use of insulin, unspecified CKD stage (HCC)Start: 04-30-2025 End: 46-38-0438Qbakioacl encounterPino Eric PTANOMS [facility] Comment on above:PT is completed; happy w/ statusStart: 04-30-2025 End: 55-34-8326grmfoszkqfVnwyzng R WATERSFacility:EU evueStart: 04-30-2025 End: 77-67-9412Ggfdggr encounter procedureBernardo RODGERS [facility] start: 55-93-3813sidulgtgxdMnjqtjz R WATERSFacility:EU BellevueStart: 04-11-2025 End: 65-02-9015Tyrwpmixl encounterSselene DA SILVAMS [facility] Physical TherapyComment on above:More PT?; He will call back; DC PT (He noted feeling so much better and no more PT is needed.)Start: 04-09-2025 End: 59-31-9455Sxcvuo flowsAstrid Eric PTANOMS [facility] Start: 04-09-2025 End: 95-51-6024Pbhprj flowsAstrid Cortezink PTANOMS [facility] Start: 04-09-2025 End: 40-84-5301zfkmpbegteTndfkpam Brink PTANOMS [facility] Physical TherapyComment on above:Pain, neck (Primary Dx); Cervical paraspinal muscle spasm; Neck painStart: 04-02-2025 End: 27-49-9311puwkqxyshpGjplqqfod Schneider PTNOMS [facility] Comment on above:Pain, neck (Primary Dx); Cervical paraspinal muscle spasmStart: 03-26-2025 End: 59-12-0589Twrlzg flowsheetPino Eric PTANOMS [facility] Start: 03-26-2025 End: 82-13-2040Anghgl flowsheetPino Eric PTANOMS [facility] Start: 03-26-2025 End: 94-82-5444xoixwonnqeZnzvjpau Brink PTANOMS [facility] Physical TherapyComment on above:Pain, neck (Primary Dx); Cervical paraspinal muscle spasmStart: 03-14-2025 End: 43-85-0942vfdsuinfjpQstlf M Alda MD Work Phone: [facility] Work Phone: Start: 03-14-2025 End: 97-01-0699Fwavwvu encounter Cristin Edwards MD-[facility] Work Phone: Start: 03-12-2025 End: 01-83-7080muwsjokpflHnnyynb Lawrence PTANOMS CI PTComment on above:Pain, neck (Primary Dx); Cervical paraspinal muscle spasmStart: 03-08-2025 End: 83-12-9508Pxtrwt flowsheetPino Eric PTANOMS CI PTStart: 03-08-2025 End: 40-43-0616Lpilnr flowsheetMarshall Brink PTANOMS CI PTStart: 03-08-2025 End: 10-34-7862sppbxsunlhPgorjvce Brink PTANOMS CI PTComment on above:Pain, neck (Primary Dx); Cervical paraspinal muscle spasmStart: 03-07-2025 End: 94-34-2046Rherpmmvh Result EncounterGeneric External Data ProviderNOMS External Department UnsolicitedStart: 03-07-2025 End: 16-66-7313Apotcndpi Result EncounterGeneric External Data ProviderNOMS External Department UnsolicitedStart: 30-03-7663Kmo-patient / Non-visitJillian Edwards MD-[facility] Work Phone: Start: 03-06-2025 End: 74-51-8218Zeizzy outpatient visit 25 minutesNatan Keyes MD Work Phone: NOMS CI FMComment on above:Type 2 diabetes mellitus with chronic kidney disease, with long-term current use of insulin, unspecified CKD stage (HCC)Start: 03-06-2025 End: 78-27-2742cqcezpiywpMTRZN M ALDANot AvailableStart: 03-06-2025 End: 34-94-3843Vrgdrh Flo eKyes MD Work Phone: noMS CI FMStart: 03-06-2025 End: 60-46-8105Ufmtdu Flo Keyes MD Work Phone: NOMS CI FMStart: 03-05-2025 End: 70-08-2113tpptyxthzoYekmuemy Brink PTANOMS CI PTComment on above:Pain, neck (Primary Dx); Cervical paraspinal muscle spasmStart: 02-28-2025 End: 31-12-0515Bnmelt flowsheetMarshall Brink PTANOMS CI PTStart: 02-28-2025 End: 46-29-2273Akkrih flowsheetMarshall Brink PTANOMS CI PTStart: 02-28-2025 End: 14-33-2528mvqzasdypqEbydcihy Brink PTANOMS CI PTComment on above:Pain, neck (Primary Dx); Cervical paraspinal muscle spasmStart: 84-44-3687ayqofwcikxXtlxb M Alda MD [facility]: 02-22-2025 End: 66-89-5986Hnsyjd Jono Joseph PT Work Phone: noms CI PTStart: 02-22-2025 End: 86-61-1756Kndbkf erickPhillipkaterin Joseph PT Work Phone: noms CI PTStart: 02-22-2025 End: 74-91-1436fmwdikqevzZckdru T Blackston PT Work Phone: noms CI PTComment on above:Pain, neck (Primary Dx); Cervical paraspinal muscle spasmStart: 02-12-2025 End: 06-70-0144Qvsowu flowsheetMarshall Brink PTANOMS CI PTStart: 02-12-2025 End: 23-51-9099Dpegjw flowsheetClarissashall Brink PTANOMS CI PTStart: 02-12-2025 End: 61-93-3868Ksnnznhzn Sara Keyes MD Work Phone: noms CI FMStart: 02-12-2025 End: 34-24-6656ygvvrqpqirVcjoutwo Brink PTANOMS CI PTComment on above:Acute low back pain without sciatica, unspecified back pain laterality (Primary Dx); Lumbar paraspinal muscle spasm; Acute left lumbar radiculopathyStart: 02-05-2025 End: 53-27-3633Ftcqoq flowsheetMarshall Brink PTANOMS CI PTStart: 02-05-2025 End: 46-08-6725Lpsnnm flowsheetMarshall Brink PTANOMS CI PTStart: 02-05-2025 End: 21-29-3194darmrrcbqzBoznqhvn Brink PTANOMS CI PTComment on above:Acute low back pain without sciatica, unspecified back pain laterality (Primary Dx); Lumbar paraspinal muscle spasmStart: 01-17-2025 End: 62-36-1585fztxrvrahpQxjhpvg Kevin PTANOMS CI PTComment on above:Acute low back pain without sciatica, unspecified back pain laterality (Primary Dx); Lumbar paraspinal muscle spasm; Acute left lumbar radiculopathyStart: 01-17-2025 End: 84-18-9940Fcyccg curtisCharly Brown PTANOMS CI PTStart: 01-17-2025 End: 10-26-2629Tywcgk Phuong Brown PTANOMS CI PTStart: 01-12-2025 End: 85-67-7521tqjkhmiacqSGGFGHGRP ELSYNot AvailableStart: 01-10-2025 End: 35-61-7929arqmcacjslAzllazub Brink PTANOMS CI PTComment on above:Acute low back pain without sciatica, unspecified back pain laterality (Primary Dx); Lumbar paraspinal muscle spasm; Acute left lumbar radiculopathyStart: 01-10-2025 End: 71-68-2827Mcbplm Julio Eric PTANOMS CI PTStart: 01-10-2025 End: 14-21-4938Njdbld Julio Eric PTANOMS CI PTStart: 01-04-2025 End: 22-03-2245kvzkaymkkqIKKPJ MABALAY ALDAFacility:[facility] Start: 01-04-2025 End: 80-16-9762Dvtpce outpatient visit 15 minutesG Yobani Beck MD Work Phone: Radiation OncologyComment on above:History of prostate cancer (Primary Dx)Start: 01-03-2025 End: 09-72-3666orygirjtmdIpwqblcd Brink PTANOMS CI PTComment on above:Acute low back pain without sciatica, unspecified back pain laterality (Primary Dx); Lumbar paraspinal muscle spasm; Acute left lumbar radiculopathyStart: 01-03-2025 End: 28-75-6452Ogwxpw Julio Eric PTANOMS CI PTStart: 01-03-2025 End: 64-93-9394Kkykrq Julio Eric PTANOMS CI PTStart: 01-01-2025 End: 72-17-0438Vxtprjmrk Result EncounterGeneric External Data ProviderNOMS External Department UnsolicitedStart: 01-01-2025 End: 79-37-0825Cobciqxqg Result EncounterGeneric External Data ProviderNOMS External Department UnsolicitedStart: 12-26-2024 End: 48-50-0585Xnzlnr Julio Eric PTANOMS CI PTStart: 12-26-2024 End: 73-62-4000Rhxqcx flowsheetMarshall Brink PTANOMS CI PTStart: 12-26-2024 End: 02-26-1982tunuwjvteeDkyyucjh Brink PTANOMS CI PTComment on above:Acute low back pain without sciatica, unspecified back pain laterality (Primary Dx); Lumbar paraspinal muscle spasm; Acute left lumbar radiculopathyStart: 12-18-2024 End: 34-01-2672Fzomgu flowsheetMarshall Brink PTANOMS CI PTStart: 12-18-2024 End: 35-93-7862Ucwswd flowsheetClarissashall Brink PTANOMS CI PTStart: 12-18-2024 End: 98-78-0252sgmbbmjgmwOfwcgcje Brink PTANOMS CI PTComment on above:Acute low back pain without sciatica, unspecified back pain laterality (Primary Dx); Lumbar paraspinal muscle spasm; Acute left lumbar radiculopathyStart: 12-15-2024 End: 17-09-9099Dsujib flowsheetMarshall Brink PTANOMS CI PTStart: 12-15-2024 End: 43-25-4147Ougyfe flowsheetClarissashall Brink PTANOMS CI PTStart: 12-15-2024 End: 47-07-9633gzgoisyfatTrzyiuif Brink PTANOMS CI PTComment on above:Acute low back pain without sciatica, unspecified back pain laterality (Primary Dx); Lumbar paraspinal muscle spasm; Acute left lumbar radiculopathyStart: 12-11-2024 End: 09-53-4718Afcjet flowsheetMarshall Brink PTANOMS CI PTStart: 12-11-2024 End: 13-62-9028Aeaixp flowsheetMarshall Brink PTANOMS CI PTStart: 12-11-2024 End: 06-29-3444sazzywelbsEenivyns Brink PTANOMS CI PTComment on above:Acute low back pain without sciatica, unspecified back pain laterality (Primary Dx); Lumbar paraspinal muscle spasm; Acute left lumbar radiculopathy; Low back pain with left-sided sciatica, unspecified back pain laterality, unspecified chronicityStart: 12-06-2024 End: 45-36-3705Abnnsm flowsheetClarissashluis felipe Eric PTANOMS CI PTStart: 12-06-2024 End: 99-22-2276Geyapc flowsheetClarissashluis felipe Eric PTANOMS CI PTStart: 12-06-2024 End: 78-94-9726tyryghjvvgDblhmgus Brink PTANOMS CI PTComment on above:Acute low back pain without sciatica, unspecified back pain laterality (Primary Dx); Lumbar paraspinal muscle spasm; Acute left lumbar radiculopathy; Low back pain with left-sided sciatica, unspecified back pain laterality, unspecified chronicityStart: 12-04-2024 End: 24-89-1753Gycjrm flowsheetSammantha Ochoa PTNOMS CI PTStart: 12-04-2024 End: 40-79-7593Bmgxjh flowsheetSammantha Ochoa PTNOMS CI PTStart: 12-04-2024 End: 51-58-2210meggyrubmtEbaiobywv Ochoa PTNOMS CI PTComment on above:Acute low back pain without sciatica, unspecified back pain laterality (Primary Dx) Start: 11-28-2024 End: 99-78-5090Nnxnky outpatient visit 25 minutesNatan Keyes MD Work Phone: noms CI FMComment on above:Acute gout involving toe of right foot, unspecified cause (Primary Dx); Acute low back pain without sciatica, unspecified back pain laterality; Type 2 diabetes mellitus with chronic kidney disease, with long-term current use of insulin, unspecified CKD stage (CMS/HCC); Type 2 diabetes mellitus without complication, without long-term current use of insulin; Ingrown right big toenailStart: 11-28-2024 End: 02-53-0979mbryschpnvJVWJF M ALDANot AvailableStart: 11-23-2024 End: 42-61-6697Plscqkpfc encounterLinjens Proctor NP Work Phone: noms SWS UCStart: 11-23-2024 End: 40-48-3389Einmti outpatient visit 25 minutesYas Proctor NP Work Phone: noms SWS UCComment on above:Great toe pain, right (Primary Dx); Hx of goutStart: 11-23-2024 End: 02-35-4718wakxlqhcwuFOAJTUY R LACONISNot AvailableStart: 11-05-2024 End: 76-99-1834bneyblwwbhCJHAKSK A NELSONNot AvailableStart: 10-12-2024 End: 06-26-1381Aqukzo Flo Keyes MD Work Phone: NOM[facility] CI FMStart: 10-12-2024 End: 25-86-6122Rfufke Flo Keyes MD Work Phone: [facility] CI FMStart: 10-12-2024 End: 55-86-4027yfdlyuzggaXGPYN M ALDANot AvailableStart: 10-12-2024 End: 05-76-0668Olzesh outpatient visit 25 minutesNatan Keyes MD Work Phone: NOMS CI FMComment on above:Gouty arthritis of right great toe (Primary Dx); Acute gout, unspecified cause, unspecified site; Ingrown right big toenailStart: 10-03-2024 End: 22-13-6214Rgyslw outpatient visit 15 minutesMerrill Mcrae DPM Work Phone: NOMS [place] PODComment on above:Acute gout of right foot, unspecified cause (Primary Dx); Type 2 diabetes mellitus without complication, unspecified whether keno terminal operator insulin use ([facility])Start: 10-03-2024 End: 09-73-3166jmajbazsqvSXGFLKQZ A BROWNNot AvailableStart: 10-03-2024 End: 82-15-6181Abnmvjabhijit Mcrae DPM Work Phone: [facility] [place] PODStart: 10-03-2024 End: 02-88-1129Tkpcfpabhijit Mcrae DPM Work Phone: [facility] [place] PODStart: 09-29-2024 End: 73-95-8996prexqxejrpZFAURDMX E PERRYFacility:EU BellevueStart: 09-29-2024 End: 96-45-1509Jbexfyv encounter procedureJENNIFFER SAUNDERS [facility] start: 09-19-2024 End: 07-14-3471Rrbgwg outpatient visit 25 minutesNatan Keyes MD Work Phone: noms CI FMComment on above:Shortness of breath (Primary Dx); TIA (transient ischemic attack); Subcortical microvascular ischemic occlusive diseaseStart: 09-19-2024 End: 08-60-9293fdckfwrzwpEZSSZ M ALDANot AvailableStart: 12-71-2113Yqq-patient / Non-visitNatan Keyes MD Work Phone: [facility] Phys[facility] GroupSent[facility] Work Phone: Start: 09-18-2024 End: 35-07-9887Ynzzdke encounter procedureNatan Keyes MD Work Phone: [facility] Work Phone: Start: 09-18-2024 End: 63-17-1588cerkzoirhiIzmad M Alda MD Work Phone: [facility] Work Phone: Start: 09-13-2024 End: 83-78-4240Jketrg Jaziel Valladares [employer]ARTER [employer] P[employer] M[employer]ER Work Phone: noms CI FMStart: 09-13-2024 End: 55-53-4661Kirlgdtrinh Valladares [employer] P[employer]ER Work Phone: noMS CI FMStart: 09-13-2024 End: 07-42-8923vopgpfchxcLHZ C MILLERNot AvailableStart: 09-13-2024 End: 52-52-8896Iepest outpatient visit 25 minutesLeonie Valladares [employer]ARTER [employer] POW[employer] M[employer]ER Work Phone: NOMS CI FMComment on above:Acute gout, unspecified cause, unspecified site (Primary Dx); Age-related cognitive decline; Malignant neoplasm of prostate (CMS/HCC); Type 2 diabetes mellitus with other specified complication ([facility]); Hyperlipidemia, unspecified ([facility]); Malignant melanoma of other part of trunk ([facility]); Type 2 diabetes mellitus with diabetic chronic kidney disease ([facility]); Chronic kidney disease, stage 2 (mild)Start: 09-05-2024 End: 68-19-5956Tiyiwe Mart Mcrae DPM Work Phone: [facility] [place] PODStart: 09-05-2024 End: 71-01-7034Qlsomq flowsAlfredo Mcrae DPM Work Phone: noMS [place] PODStart: 09-05-2024 End: 69-18-3533xjhhjrhxuyVUFRUHHF A BROWNNot AvailableStart: 09-05-2024 End: 05-65-1239Trikqi outpatient visit 15 minutesNicolvin Mcrae DPM Work Phone: noms [place] PODComment on above:Plantar fasciitis (Primary Dx); Type 2 diabetes mellitus without complication, unspecified whether skilled nursing insulin use ([facility]); Pain due to onychomycosis of toenails of both feet; Contracture of left ankleStart: 08-24-2024 End: 72-43-0736Licawopek Result EncounterNatan Keyes MD Work Phone: noms External Department UnsolicitedStart: 08-24-2024 End: 04-69-9087Vsodympoi Result EncounterNatan Keyes MD Work Phone: noms External Department UnsolicitedStart: 08-18-2024 End: 78-44-6387Wcjaqst encounter procedureNatan Keyes MD Work Phone: [facility] [place] Work Phone: Start: 08-14-2024 End: 25-25-7743Tlfcjl Flo Keyes MD Work Phone: noms CI FMStart: 08-14-2024 End: 20-15-9148Etzsrr Flo Keyes MD Work Phone: noms CI FMStart: 08-14-2024 End: 58-32-9844Roldn of hemosiderin, quantNatan Keyes MD Work Phone: noms HealthcareStart: 08-14-2024 End: 56-48-6065Pizdhcx encounter procedureNatan Keyes MD Work Phone: noms CI FMComment on above:Routine general medical examination at health care facility (Primary Dx); Type 2 diabetes mellitus with stage 3a chronic kidney disease, without long-term current use of insulin (HCC) (CMS/HCC); Hypertriglyceridemia (CMS/HCC); Medicare annual wellness visit, subsequent; Lipoprotein deficiency disorder (CMS/HCC); Type 2 diabetes mellitus without complication, without long-term current use of insulin (CMS/HCC); Malignant neoplasm of prostate (CMS/HCC); Malignant melanoma of other part of trunk (CMS/HCC); Other chest pain; Abnormal CT of brainStart: 08-14-2024 End: 62-87-6963vvbvdpnmghAJXKI M ALDANot AvailableStart: 07-18-2024 End: 10-83-7402oujjjaprczDNLXV A PETITTINoevie AvailableStart: 07-18-2024 End: 33-15-7764Gzajuj outpatient visit 15 minutesEmmary Chino MD Work Phone: noms SWS DERMComment on above:Seborrheic keratosis (Primary Dx); Lentigines; Actinic keratosis; History of malignant melanoma of skinStart: 05-03-2024 End: 27-57-0176Ybqhhps encounter procedureMD Natan Keyes Work Phone: [facility]-CT Scan [facility] [place] Work Phone: Start: 05-03-2024 End: 91-52-9480cmafcxidaeQM Rugen M Alda Work Phone: [facility] Work Phone: Start: 04-27-2024 End: 17-62-2403Bxeeeb outpatient visit 25 minutesSubha Neal NP Work Phone: NOMS CI FMComment on above:Transient alteration of awareness (Primary Dx); Forgetfulness; Loss of balanceStart: 04-27-2024 End: 75-56-8362Ohcpsy flowsGhazala Neal [employer] P[employer] M[employer]ER Work Phone: NOMS CI FMStart: 04-27-2024 End: 37-25-3669Mialza flowsGhazala Neal [employer] POW[employer] MIXER Work Phone: NOM[facility] CI FMStart: 04-18-2024 End: 94-47-1472Jjsmeuvvd Result EncounterGeneric External Data ProviderNOMS External Department UnsolicitedStart: 04-18-2024 End: 12-45-0716Turktfjhr Result EncounterGeneric External Data ProviderNOMS External Department UnsolicitedStart: 04-17-2024 End: 51-69-0055Sjblxf flowsheetEmily Alexis Chino MD Work Phone: noms SWS DERMStart: 04-17-2024 End: 15-30-5734Wbiryw flowsheetEmmary Chino MD Work Phone: noms SWS DERMStart: 04-17-2024 End: 17-86-3278Wxkwvh outpatient visit 15 minutesEmily Alexis Chino MD Work Phone: noms SWS DERMComment on above:Allergic contact dermatitis due to plants, except food (Primary Dx); History of malignant melanoma of skin; Actinic keratosis; Neoplasm of unspecified behavior of bone, soft tissue, and skin; Seborrheic keratosis, inflamed; Lentigines; Seborrheic keratosisStart: 03-15-2024 End: 83-84-0632wmudelwipgZlwhavqnjUniversity [facility]als [facility] Work Phone: Start: 03-15-2024 End: 19-82-0941Ixbgvdf encounter procedureAt[facility] Nephrology Work Phone: Start: 03-10-2024 End: 86-14-3061Owjvaog encounter procedureBernardo RODGERS [facility] start: 46-50-5106Dnc-patient / Non-visitAt[facility] Health [facility] Work Phone: Start: 01-24-2024 End: 65-67-9114kcttvxnsecGrqvunvxt [facility] Work Phone: Start: 01-24-2024 End: 42-66-2931Hfyvnev encounter procedureAt[facility] [place] Work Phone: Start: 12-29-2023 End: 03-37-4459Gdzjjep encounter procedureG Yobani Beck MD Work Phone: [facility] OncologyComment on above:History of prostate cancer (Primary Dx)Start: 11-12-2023 End: 46-69-4310wezwhqusxjEMTOASaint John's Regional Health Center AmbulatoryStart: 11-12-2023 End: 18-72-3204Glbfxe follow up visit related to original pxGoyo Valladares MD PhD Work Phone: [facility] GeneralComment on above:Melanoma in situ of forehead (CMS/HCC); Encounter for change or removal of nonsurgical wound dressingStart: 11-03-2023 End: 47-00-3448ykugenjqfaQGKAO [facility] AmbulatoryStart: 11-03-2023 End: 10-67-4826Nkyxxnn encounter procedureGoyo Valladares MD PhD Work Phone: [facility] GeneralComment on above:Melanoma in situ of forehead (CMS/HCC)Start: 93-70-9121Hcfyuu flowsheetNatalie A Felter [employer] FINISH[employer]-COUNT[employer] HOME DEMONSTRATOR Work Phone: NOMS SWS DERMStart: 88-02-8403Nmvjwn flowsheetNatalie A Felter [employer]AT FINISHER-COUNTY HOME DEMONSTRATOR Work Phone: NOMS SWS DERMStart: 09-21-2023 End: 18-54-2128xbfottyeveOjij Bakhous Other [facility]Well[facility] [employer] Other Start: 07-63-0633Wdfhxfmdw encounterAziz Freida NephrologyStart: 00-72-9152Udpfni outpatient visit 15 minutesAziz JoyceG NephrologyStart: 09-15-2023 End: 52-23-1504lofhphdszzBP Natan Prescott Stephy Work Phone: [facility] [employer] Other Start: 09-15-2023 End: 55-01-2535Eakellm encounter procedureMD Naatn Stehpy Work Phone: [facility]-Lab [facility] [place] Work Phone: Start: 25-35-2362Mccvdpu encounter procedureNatleonordixie Hebert COAT FINISHER-COUNTY HOME DEMONSTRATOR Work Phone: [facility] HealthcareStart: 05-20-2023 End: 81-03-7136nxfpvidskxOM Natan Prescott Tennyson Work Phone: [facility] Work Phone: Start: 05-20-2023 End: 56-44-7930Rvmsrjt encounter procedureMD Natan Tennyson Work Phone: [facility]-Flu VaccineStart: 04-07-2023 End: 09-39-3546Tpqcoov encounter procedureMD Natan Horna Work Phone: [facility]-MRI [address] Work Phone: Start: 03-05-2023 End: 91-54-6970duillwopjxHkxzut Zaky Other [facility] [employer] Other Start: 28-03-6121Lgixyk outpatient visit 25 minutes Chukc [facility] [place]walkStart: 02-27-2023 End: 68-73-6806kxaimsbzdvJveaub Dymond Other [facility] [employer] Other Start: 54-55-0401Xaaxgq outpatient visit 15 minutes Karine DymondFPG [facility] Care ClydeStart: 01-20-2023 End: 36-49-3989ecstcznffxAwqe Bakhous Other noDwllr [place] Other Start: 69-82-3028Ssgufr outpatient visit 25 minutes Aziz BakmoonsFPG NephrologyStart: 12-31-2022 End: 85-67-2675Pvgavby encounter procedureG Yobani Beck MD Work Phone: [facility] OncologyComment on above:History of prostate cancer (Primary Dx)Start: 12-25-2022 End: 67-55-3122sgmsmvsnhrRY Natan Keyes Work Phone: [facility] Work Phone: Start: 12-25-2022 End: 62-93-7589Rvqjrjl encounter procedureMD Natan Stephy Work Phone: [facility]-Ultrasound [facility] [place] Work Phone: Start: 08-28-2022 End: 46-91-5643zebgpzwtuuMwbrsl Melissa Other [facility] [employer] Other Start: 77-97-9071Xypcax outpatient visit 25 minutes Karine DyjazlynFPG [facility] Care ClydeStart: 06-24-2022 End: 70-58-9927dfzccpfibdBext Bakhous Other [facility] Other Start: 47-86-6286Jbfvxg outpatient new 30 minutesAziz BakmoonsFPG NephrologyStart: 03-12-2022 End: 98-68-0893dhiltagupuUI RUGEN ALDAFacility:V6Iqrgn: 03-11-2022 End: 33-65-1266zipngptrcyHK RUGEN ALDAFacility:V4Qmczi: 03-09-2022 End: 12-14-2898Fylneqy encounter procedureBernardo RODGERS [facility] Sarai start: 03-06-2022 End: 08-56-1561kiddfnbkppXexlxx Zaky Other nort [employer] Other Start: 42-77-2482Hdgqfy outpatient visit 15 minutes Chuck ZabreeFP[facility] [place]walkStart: 02-28-2022 End: 45-43-2930vksjghqrwsUwgabf Melissa Other [facility] Other Start: 70-37-0192Fmdmck outpatient visit 15 minutes Karine DyjazlynFPG [facility] ClydeStart: 02-12-2022(Procedure) Abdelrahman Hamm [facility] CenterStart: 02-12-2022 End: 44-21-3889raepwrkbddWoqieg Zaky Other [facility] [employer] Other Start: 40-60-6494EiuaihU Yobani Beck MD Work Phone: [facility] OncologyComment on above:Refill Request Start: 10-17-2021 End: 97-79-5418hwglgaufdjGzzfni Zaky Other [facility] [employer] Other Start: 13-51-4072Dneabr outpatient visit 15 minutes Chuckshelly [facility] NorwalkStart: 12-04-8685baoptrmrqxDRQTH AKKINA Facility:H9Simtz: 06-17-2021 End: 58-39-7213lpuunyyfudNP RUGEN ALDAFacility:R6Mbimm: 05-99-0969Nrjifz outpatient visit 15 minutesAmber GintyFPG Urgent Care ClydeStart: 05-23-2021 Office outpatient visit 15 minutesPamela DymondFPG [facility]gent Care ClydeStart: 18-36-6757xgcqkqsvtuMNKLF AKKINAFacility:W8Hmqnn: 04-08-2020 End: 27-10-8765Jtantrxvnkmux procedureExternal ProviderOhioHealth Grant Medical Centertart: 97-72-8137Yskzsjco CorrespondenceExternal ProviderExternal-NonCCFStart: 04-08-2020 End: 26-41-7955Lchcmoz encounter procedureExternal [facility] Start: 66-10-0446Shcscqo OnlyExternal ProviderExternal-NonCCF Procedures DateProcedureProcedure DetailPerforming ClinicianStart: 58-75-4390Zlhvouxoxl glycosylated i0xXjlfuNatan Keyes MD Work Phone: Start: 04-49-6219FEIT CBC WITH PLATELET NO DIFFERENTIALGeneric External Data ProviderStart: 53-84-0421Kxhljxqqhf glycosylated x8mPtewpNatan Keyes MD Work Phone: Start: 38-00-3013PGG screeningCcf ProviderStart: 13-66-2635CJMI PSA, DIAGNOSTICGeneric External Data ProviderStart: 11-28-2024 Hemoglobin glycosylated t7mCqngsNatan Keyes MD Work Phone: Start: 64-58-8925Wsnpc toe minimum 2 viewsLinjens Proctor NP Work Phone: Start: 07-28-5112Yvbnmgvjxebi myocardial perfusion stress studyNatan Keyes MD Work Phone: Start: 90-34-4077NV HEAD/BRAIN WO Marco A Keyes MD Work Phone: Start: 73-44-0739Fajmuvfmyp glycosylated Taurus Keyes MD Work Phone: Start: 00-05-9000GYZGJBQBDJY SKIN LESIONEmily Alexis Chino MD Work Phone: Start: 60-10-9137ZL of head without contrastMD Natan Keyes Work Phone: Start: 62-38-3110BYE CBC WITH AUTO DIFFGeneric External Data ProviderStart: 33-77-1472BEMO / NAIL BIOPSYEmmary Chino MD Work Phone: Start: 04-17-2024 End: 30-84-0850PDRNNMOGBOS SKIN LESIONEmily A Petitti MD Work Phone: Start: 59-74-7901CZA screeningCcf ProviderStart: 33-68-7203DXAAMS UP IN DERMATOLOGYGOYO VALLADARESStart: 25-57-9073ARM NURSING COMMUNICATION - LIDOCAINE INJGOYO VALLADARESStart: 97-74-4345BXVT SURGERYGOYO VALLADARESStart: 56-45-4990HIOY SURGERYGoyo Valladares MD PhD Work Phone: Start: 82-56-1934FH lumbar spine wo conMD Rugen Tennyson Work Phone: Start: 98-83-7221K-ray of lumbar spine, four viewsMD Rugen Stephy Work Phone: Start: 81-96-6507Boeavwvvbsprxqp of right kidneyMD Rugen Stephy Work Phone: Start: 39-31-0259Qkjqc depression screening assessment SHIRLEY Beck MD Work Phone: Start: 77-93-7953Wpyvijwaf therapy carePaemelina ORDGERS Start: 40-62-9966PQQFGHEK IMAGINGExternal Provider Start: 04-08-2020 End: 56-03-6129IZMVIRFE LABExternal ProviderStart: 43-73-7095BAXKOAON PROCEDURE External ProviderStart: 08-62-9916Pknvnzphtbp biopsy of prostatePatrick ANA MARIA Start: 79-94-9688Pedcdxehicf biopsy of prostate using ultrasound guidancePakurtk ANA MARIA Comment on above:TRUS bx/cystoStart: 24-75-4802Bbahlub of ureteral stentPatrick ANA MARIA Start: 98-72-8981Oyyfu ablation of prostatePatrick ANA MARIA Start: 48-46-0255Ythav nephrectomyPaemelina RODGERS Comment on above:left side ( no date recorded) AppendectomyPatrick ANA MARIA TonsillectomySpulysses ANA MARIA Plan of Treatment DateCare ActivityDetailAuthorStart: 07-61-7386Marioszr ScreeningDiabetes ScreeningErbacon ClinicStart: 63-34-9518Qhrfhyen screeningDiabetes: Retinopathy ScreeningNOOK HealthcareStart: 01-04-2026 End: 46-07-5473Yzjvyscn specific Ag [Mass/volume] in Serum or PlasmaPROSTATE- SPECIFIC ANTIGEN DIAGNOSTIC Lab Routine History of prostate cancer Expected: 01/04/2026, Expires: 04/05/2026[facility] Work Phone: Comment on above:Expected: 01/04/2026, Expires: 04/05/2026Start: 01-03-2026 End: 16-39-3198Zgtuhsr encounter igtnxtfyc53/14/2026 10:00 AM EDT Office Visit Radiation Oncology [address] [place] [address] Stanley Beck MD [address] [place] [place] [address] 1year follow upRadiation OncologyComment on above:1year follow upStart: 10-08-2025 End: 16-29-5768Nwhvflq encounter mubfzwxpa97/16/2026 8:30 AM EST Office Visit [facility] [address] [facility] [address] [place] [address] Natan Keyes MD [address] [facility] [address] [place] [address] [facility]'S HospitalnceStart: 09-11-2025 Hemoglobin A1c measurementDiabetes: Hemoglobin A0JVZYT HealthcareStart: 81-24-9110Ybdyw screening for proteinDiabetes: Urine Protein ScreeningNOOK HealthcareStart: 12-23-2025Medicare Annual Wellness (AWV)Medicare Annual Wellness (AWV)NOM HealthcareStart: 06-11-2025 End: 80-48-4710Khiokfn encounter procedureNOSURGICAL H[facility] FMStart: 52-94-4541Gycdqthuol A1c measurementDiabetes: Hemoglobin R4UFMAUAlvin J. Siteman Cancer CenterStart: 99-50-6973Wfsoyxxmf vaccinationOhioHealth Grant Medical Centertart: 04-09-2025 End: 15-19-1074kgfrxvpjrs68/18/2025 8:30 AM EDT Treatment [facility] [place] [facility] [address] [place], [id number] Pino Eric PTANOMS [place] Physical TherapyStart: 04-02-2025 End: 33-63-9832nvnmealpjq85/11/2025 11:30 AM EDT Treatment [facility] [place] [facility] [address] [place] [address] Marilyn Ochoa PTNOMS [place] Physical TherapyStart: 03-29-2025 End: 43-22-1867sdaafwchnvBYPD CI PTStart: 03-26-2025 End: 37-17-5338cdpdqvmlhc89/04/2025 8:00 AM EDT Treatment [facility] [address] [place] [address] Pino Eric PRESCHOOL AIDE NOMS CI PTStart: 03-20-2025 End: 17-37-6701spgfuzhppv60/29/2025 1:00 PM EDT Treatment [facility] [address] [place] [address] Pino Eric PTA NOMS CI PTStart: 03-15-2025 End: 34-21-0712fhtfmdqita98/24/2025 11:30 AM EDT Treatment [facility] [address] [place] [address] Charly Brown PTANOMS CI PTStart: 03-12-2025 End: 78-15-1242okezhppbno18/21/2025 10:30 AM EDT Treatment [facility] [address] [place] [address] Charly Brown PTANOMS CI PTStart: 03-08-2025 End: 25-05-4718xwqayqzwxx67/17/2025 10:30 AM EDT Treatment [facility] [address] [place] [address] Pino Eric PRESCHOOL AIDE NOMS CI PTStart: 03-06-2025 End: 11-95-1603Zlbqnzn encounter procedureNOMS CI FMComment on above:Arrived Start: 03-05-2025 End: 62-88-9808ctygegwmgv88/14/2025 1:30 PM EDT Treatment [facility] [address] [place] [address] Pino Eric PTA NOMS CI PTStart: 02-28-2025 End: 09-44-0286lbknfbqzsn71/09/2025 11:00 AM EDT Treatment [facility] [address] [place] [address] Pino Eric PTA NOMS CI PTStart: 47-27-3091Swnaiqoeoi A1c measurementDiabetes: Hemoglobin A1C NOMS HealthcareStart: 02-27-2025 End: 68-35-2160Vlnyfks encounter szvhzylel64/08/2025 1:00 PM EDT Office Visit [facility] CI FM [address] [place] [address] Natan Keyes MD [address] [place] [address] NOMS CI FMStart: 02-26-2025 End: 02-02-4107jdhrwndomn94/07/2025 1:00 PM EDT Treatment [facility] [address] [place] [address] Pino Eric PRESCHOOL AIDE NOMS CI PTStart: 02-12-2025 End: 86-94-2844jhaxinlwnm65/23/2025 8:30 AM EDT Treatment [facility] [address] [place] [address] Pino Eric PTA NOMS CI PTStart: 02-05-2025 End: 03-70-3498gsxrsqllbc18/16/2025 9:00 AM EDT Treatment [facility] [address] [place] [address] Pino Eric, PRESCHOOL AIDE NOMS CI PTStart: 01-17-2025 End: 02-96-1248hjpzveuyyl16/28/2025 1:30 PM EDT Treatment [facility] [address] [place] [address] Charly Brown, PTANOMS CI PTStart: 01-12-2025 End: 36-75-3964rhywkwiivs61/23/2025 1:30 PM EDT Treatment [facility] [address] [place] [address] Pino Eric, PRESCHOOL AIDE NOMS CI PTStart: 01-05-2025 End: 40-07-8709mnibvanohc56/16/2025 11:00 AM EDT Treatment [facility] [address] [place] [address] Pino Eric, PRESCHOOL AIDE NOMS CI PTStart: 01-03-2025 End: 88-25-4232siiojyklhl61/14/2025 4:00 PM EDT Treatment [facility] [address] [place] [address] Pino Eric, PRESCHOOL AIDE NOMS CI PTStart: 01-02-2025 End: 84-46-0822lavjjguujb65/13/2025 1:30 PM EDT Treatment [facility] [address] [place] [address] Pino Eric, PRESCHOOL AIDE NOMS CI PTStart: 12-28-2024 End: 12-19-5338Hsrjmblt specific Ag [Mass/volume] in Serum or PlasmaPROSTATE- SPECIFIC ANTIGEN DIAGNOSTIC Lab Routine History of prostate cancer Expected: 12/28/2024 (Approximate), Expires: 03/29/2025[facility] Work Phone: Comment on above:Expected: 12/28/2024 (Approximate), Expires: 03/29/2025Start: 12-28-2024 End: 96-87-3282ejumpzvxup65/08/2025 10:00 AM EDT Treatment [facility] [address] [facility] [address] [place] [address] Pino Eric PTA NOMS CI PTStart: 12-27-2024 End: 59-16-4828Elefdcw encounter nmygzycqw52/07/2025 9:45 AM EDT Office Visit Radiation Oncology [address] [place] [address] Stanley Beck MD [address] [place] [address] 1 Yr Follow Up labs TBHRadiation OncologyComment on above:1 Yr Follow Up labs TBHStart: 12-26-2024 End: 36-08-8803xtkykibopq15/06/2025 10:30 AM EDT Treatment [facility] [address] [facility] [address] [place] [address] Pino Eric PTA ArrivedNOMS CI PTComment on above:ArrivedStart: 12-25-2024 End: 82-66-0750maxaqronkf08/05/2025 10:30 AM EDT Treatment [facility] [address] [facility] [address] [place] [address] Marilyn Ochoa PTNOMS CI PTStart: 12-21-2024 End: 30-43-2078ydidjqmglg02/01/2025 10:30 AM EDT Treatment [facility] [address] [facility] [address] [place] [address] Pino Eric PTA NOMS CI PTStart: 12-18-2024 End: 66-84-0585lodzmmmzmt99/28/2025 10:00 AM EDT Treatment [facility] [address] [facility] [address] [place] [address] Pino Eric PTA NOMS CI PTStart: 12-15-2024 End: 71-57-3861tewutixsne15/25/2025 11:30 AM EDT Treatment [facility] [address] [facility] [address] [place] [address] Pino Eric PRESCHOOL AIDE NOMS CI PTStart: 12-14-2024 End: 11-84-1659ucbjkdqvoo78/24/2025 9:30 AM EDT Treatment [facility] [address] [place] [address] Marilyn Ochoa PTNOMS CI PTStart: 12-11-2024 End: 13-78-5581kpkpjxcjea87/21/2025 9:00 AM EDT Treatment [facility] [address] [place] [address] Pino Eric PTA NOMS CI PTStart: 12-06-2024 End: 72-56-6219dcfxllbbss59/16/2025 10:00 AM EDT Treatment [facility] [address] [place] [address] Pino Eric PTA NOMS CI PTStart: 12-04-2024 End: 00-48-0880tkmjogbprwIYCC CI PTComment on above:Acute low back pain without sciatica, unspecified back pain laterality (Primary Dx)Start: 11-28-2024 End: 98-69-8918Flvxttb encounter osvnuzzuc75/08/2025 1:45 PM EDT Office Visit [facility] [address] [facility] [address] [place] [address] Natan Keyes MD [address] [facility] [address] [place] [address] NOMS CI FMStart: 37-71-7283Mceoqtci screeningDiabetes: Retinopathy ScreeningNOOK HealthcareStart: 73-78-7912Bqfwneprwq A1c measurement Diabetes: Hemoglobin H4KSRWB HealthcareStart: 10-12-2024 End: 35-09-1813Jlcgxgy encounter unkfggybu62/20/2025 9:20 AM EST Office Visit [facility] PODIATRY [address] [facility] [address] [place] [address] Merrill Mcrae, DPM [address] [address] N[facility] CI PODIATRYStart: 10-03-2024 End: 52-58-2924Zbjmzpe encounter ijgpbupjl93/11/2025 3:30 PM EST Office Visit [facility] [place] POD [address] [place] [address] Merrill Mcrae DPM [address] [address] [facility]NOH[facility] [place] PODComment on above:ArrivedStart: 09-19-2024 End: 86-01-1455Jcxsymt encounter sbixlfhwv85/28/2025 1:30 PM EST Office Visit [facility] FM [address] [facility] [address] [place] [address] Natan Keyes MD [address] [facility] [address] [place] [address] NOMS CI FMStart: 09-13-2024 End: 77-62-8625Zpmyf [Mass/volume] in Serum or PlasmaUric acid Lab Routine Acute gout, unspecified cause, unspecified site Expected: 09/13/2024 (Approximate), Expires: 09/13/2025[facility] Work Phone: Comment on above:Expected: 09/13/2024 (Approximate), Expires: 09/13/2025Start: 22-03-9973Bcnbmjz Directive DiscussionAdvance Directive DiscussionClelutheran hospital ClinicStart: 08-14-2024 End: 08-22-8158LLX W Auto Differential panel - BloodCBC and differential Lab Routine Type 2 diabetes mellitus with stage 3a chronic kidney disease, without long-term current use of insulin (HCC) (CMS/HCC) Hypertriglyceridemia (CMS/HCC) Medicare annualwellness visit, subsequent 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) Expected: 08/14/2024 (Approximate), Expires: 08/14/2025[facility] Work Phone: Comment on above:Expected: 08/14/2024 (Approximate), Expires: 08/14/2025Start: 08-14-2024 End: 60-45-7655Ahjghppvjoody metabolic 2000 panel - Serum or PlasmaComprehensive metabolic panel Lab Routine Type 2 diabetes mellitus with stage 3a chronic kidney disease, without long-term current use of insulin ([facility]) ([facility]) Hypertriglyceridemia ([facility]) Medicare annual wellness visit, subsequent Expected: 08/14/2024 (Approximate), Expires: 08/14/2025[facility] HealthcareComment on above:Expected: 08/14/2024 (Approximate), Expires: 08/14/2025Start: 08-14-2024 End: 82-19-2916Rdhtkwguqs MR Brain for motor functionMR head functional motor Imaging Routine Abnormal CT of brain Expected: 08/14/2024, Expires: 08/14/2025 NOMS HealthcareComment on above:Expected: 08/14/2024, Expires: 08/14/2025Start: 08-14-2024 End: 98-11-6210Owccx 1996 panel - Serum or PlasmaLipid panel Lab Routine Hypertriglyceridemia ([facility]) Medicare annual wellness visit, subsequent Li poprotein deficiency disorder ([facility]) Expected: 08/14/2024 (Approximate), Expires: 08/14/2025[facility] HealthcareComment on above:Expected: 08/14/2024 (Approximate), Expires: 08/14/2025Start: 08-14-2024 End: 53-55-9889Qpplemkflann/Creatinine panel in random UrineMicroalbumin / creatinine urine ratio Lab Routine Type 2 diabetes mellitus with stage 3a chronic kidney disease, without long-term current use of insulin (HCC) ([facility]) Medicare annual wellness visit, subsequent Expected: 08/14/2024 (Approximate), Expires: 08/14/2025[facility] HealthcareComment on above:Expected: 08/14/2024 (Approximate), Expires: 08/14/2025Start: 08-14-2024 End: 09-09-7740EO Heart Perfusion W single state of exerciseStress test with myocardial perfusion Cardiac Nuclear Medicine Routine Other chest pain Expected: 08/14/2024 (Approximate), Expires: 08/14/2026[facility] HealthcareComment on above: Expected: 08/14/2024 (Approximate), Expires: 08/14/2026Start: 08-14-2024 End: 54-22-8184Smjcbkz encounter /23/2024 9:30 AM EST Office Visit [facility] [address] [place] [address] Natan Keyes MD [address] [place] [address] ArrivedNOMS CI FMComment on above:ArrivedStart: 08-08-2024 End: 70-54-7860Wlytusq encounter uqdicdrpd45/17/2024 9:15 AM EST Office Visit [facility] [address] [facility] [address] [place] [address] Natan Keyes MD [address] [place] [address] N[facility]S CI FMStart: 07-18-2024 End: 90-25-8114Gkanpsg encounter jdwklgvij04/26/2024 8:45 AM EST Office Visit [facility] [address] [facility] [address] [place] [phone] Wanda Chino MD [address] [place] [address] [facility]: 11-13-2024Medicare Annual Wellness (AWV)Medicare Annual Wellness (AWV)[facility] HealthcareStart: 32-85-6219Hydyr screening for proteinDiabetes: Urine Protein ScreeningNOMS HealthcareStart: 36-57-1621Oufaqqfbbsuo Vaccine: 65+ Years (2 - PPSV23 or PCV20)Pneumococcal Vaccine: 65+ Years (2 - PPSV23 or PCV20)NOMS HealthcareComment on above: Postponed from 08/15/2019 (Other Patient Reasons)Start: 47-85-6710Jaodwapbhcsf Vaccine: 65+ Years (2 of 2 - PPSV23 or PCV20)Pneumococcal Vaccine: 65+ Years (2 of 2 - PPSV23 or PCV20)[facility] HealthcareComment on above:Postponed from 08/15/2019 (Other Patient Reasons)Start: 04-27-2024 End: 68-05-1134XT Head WO contrastCT head wo IV contrast Imaging Routine Transient alteration of awareness Forgetfulness Loss of balance Expected: 04/27/2024 (Approximate), Expires: 04/27/2025[facility] Work Phone: Comment on above:Expected: 04/27/2024 (Approximate), Expires: 04/27/2025Start: 93-87-3907Oskiq-19 Vaccine ()Covid- 19 Vaccine ()[facility]: 22-18-5621Kbcgmdbtb vaccinationInfluenza Vaccine (#1)[facility] HealthcareStart: 04-17-2024 End: 35-66-9326Oarixus encounter flumszbtn32/26/2024 8:40 AM EDT Office Visit [facility] [address] [place] [address] Wanda Chino MD [address] [place] [address] [facility] DERMComment on above:ArrivedStart: 01-59-5571HQHVOUBY SCREENDIABETES SCREENOhioHealth Grant Medical Centertart: 01-01-2024 End: 48-68-3520Trvclgyz specific Ag [Mass/volume] in Serum or Plasma PSA/PROSTSPECAG DIAG Lab Routine History of prostate cancer Expected: 01/01/2024, Expires: 03/02/2024[facility] Work Phone: Comment on above:Expected: 01/01/2024, Expires: 03/02/2024Start: 11-12-2023 End: 17-97-8651Oxnjyys encounter gkgknlpok76/22/2024 11:00 AM EDT Office Visit [address] [id number] Goyo Valladares MD PhD [address], [address] [address] [facility]: 10-05-2023 Hemoglobin A1c measurementDiabetes: Hemoglobin Y3EUZSYAlvin J. Siteman Cancer CenterStart: 41-23-1433Exsiwsp Directive DiscussionAdvance Directive DiscussionOhioHealth Grant Medical Centertart: 15-51-2032Ssplhjgszh Health ScreeningBehavioral Health Screening [facility]: 31-52-6386UOSVL-19 Vaccine ( season)COVID-19 Vaccine ( season)[facility]: 04-23-2023 Influenza vaccinationINFLUENZA (Season Ended)[facility]: 11-04-2022 Adult depression screening assessmentDEPRESSION SCREENINGHocking Valley Community Hospitalrt: 80-35-0068HBHUDHW DIRECTIVE DISCUSSIONADVANCE DIRECTIVE DISCUSSIONOhioHealth Grant Medical Centertart: 43-97-0396JAIDHXDAUD ASSESSMENTDEPRESSION ASSESSMENTOhioHealth Grant Medical Centertart: 02-48-1959LBEYQ-19 VACCINE (4 - Booster for Moderna series)COVID-19 VACCINE (4 - Booster for Moderna series)[facility]: 08-23-2021 ADVANCE DIRECTIVE DISCUSSIONADVANCE DIRECTIVE DISCUSSIONOhioHealth Grant Medical Centertart: 26-72-6699PQV Vaccine (1 - 1-dose 75+ series)RSV Vaccine (1 - 1-dose 75+ series) [facility]: 50-48-0596Iuxzztiagbyk Vaccine: 50+ (2 of 2 - PPSV23) Pneumococcal Vaccine: 50+ (2 of 2 - PPSV23)[facility]: 06-20-2020 Pneumococcal Vaccine: 65+ (2 of 2 - PPSV23 or PCV20)Pneumococcal Vaccine: 65+ (2 of 2 - PPSV23 or PCV20)[facility]: 44-74-8824Dbdouirahikh Vaccine: 65+ Years (2 - PPSV23 or PCV20)Pneumococcal Vaccine: 65+ Years (2 - PPSV23 or PCV20)[facility]: 81-98-3488Hgahxnesw vaccination INFLUENZA (#1)[facility]: 85-71-8574Ydudlwqolfgn Vaccine: 65+ Years (2 of 2 - PPSV23 or PCV20)Pneumococcal Vaccine: 65+ Years (2 of 2 - PPSV23 or PCV20)[facility] CenterStart: 50-41-6239Ymcnkugvjruv Vaccine: 65+ Years (2 of 2 - PPSV23)Pneumococcal Vaccine: 65+ Years (2 of 2 - PPSV23)[facility] CenterStart: 21-33-3784Taidifipyzhk Vaccine: 65+ Years (2 of 2 - PPSV23, PCV20, or PCV21) Pneumococcal Vaccine: 65+ Years (2 of 2 - PPSV23, PCV20, or PCV21)[facility] CenterStart: 24-34-3419GUJPTFY DIRECTIVE DISCUSSIONADVANCE DIRECTIVE DISCUSSIONOhioHealth Grant Medical Centertart: 00-49-8840YJUBUBOXTIFC: 65+ (1 - PCV) PNEUMOCOCCAL: 65+ (1 - PCV)[facility]: 40-17-5521VEHLNLWQR AGE 65 AND OVER WITH 5YR LOOKBACK (#1)PNEUMOVAX AGE 65 AND OVER WITH 5YR LOOKBACK (#1) [facility]: 06-83-0688NVPYD SCREENLIPID SCREENOhioHealth Grant Medical Centertart: 89-71-8137IAH Vaccine (1 - 1-dose 60+ series)RSV Vaccine (1 - 1-dose 60+ series) [facility]: 84-70-7136AOKGPVJD SCREENDIABETES SCREENToledo Hospital Start: 28-78-2492Lqflhbir ScreeningDiabetes ScreeningOhioHealth Grant Medical Centertart: 14-59-6839REPCUXUY VACCINE (1 of 2)SHINGRIX VACCINE (1 of 2)[facility] Start: 71-87-2280Jlqobmvxsyfo screeningCOLORECTAL CANCER SCREENING,SEE MODIFIER [facility]: 68-39-9460Vaegpf Vaccines (1 of 2)Zoster Vaccines (1 of 2)[facility]: 17-01-4286DReE/Tdap/Td Vaccines (1 - Tdap)DTaP/Tdap/Td Vaccines (1 - Tdap)[facility]: 04-83-9802Iqtlv microalbumin profileOhioHealth Grant Medical Centertart: 90-77-6228Phqnjie ScreeningAnxiety ScreeningOhioHealth Grant Medical Centertart: 50-60-5800Hasokdqoni Screening Depression ScreeningOhioHealth Grant Medical Centertart: 01-14-0161Pqnpuaypp C screening Hepatitis C ScreeningPrem[facility] Health [facility]: 95-01-5076Fcdv Cancer ScreeningSkin Cancer ScreeningJefferson Memorial Hospital: 44-32-3789Sqsjpcepaup of skinDerm Melanoma Skin CheckPremier Health [facility]: 16-47-5507Zlhsc panelLipid PanelPrem[facility] Health [facility]: 74-99-5811Ubsvzv Adult PhysicalYearly Adult PhysicalUnPremier Health Atrium Medical CenterDermatopathology examDermatopathology exam Pathology and Cytology Timed Neoplasm of unspecified behavior of bone, soft tissue, and skin Release Upon Ordering for 1 Occurrences starting 04/17/2024[facility] Work Phone: comment on above:Release Upon Ordering for 1 Occurrences starting 4Renal function 1999 panel - Serum or Plasma [facility] Medical CenterRenal function 1999 panel - Serum or Plasma [facility] Immunizations Immunization DateImmunizationNotesCare DmybpmykEtketgwe80-10-6370hcwlcwori, high dose seasonal, preservative-freeNatan Keyes MD Work Phone: [facility] Cancer CenterTniutqdjzz68-96-2132CJU, recombinant, protein subunit RSVpreF, adjuvant reconstitu, 120mcg/0.5mL, PF (Arexvy)Natan Keyes MD Work Phone: [facility] CenterFexcyyhygf58-85-5215xprhclnvq virus vaccine, unspecified formulationJeremkaterin Joseph PT Work Phone: [facility] CenterMxwulyneyn34-50-3008yzhmnvbrr, injectable, quadrivalent, preservative freeNatalie Emilee TRIPATHI Work Phone: [facility] CenterUrqxyuawvj88-00-6436cqzvfprmo virus vaccine, unspecified formulationWanda Chino MD Work Phone: [facility] Cancer CenterWmeqmjlgnb47-58-8897mrhdsbfkw, high dose seasonal, preservative-freeNatalie Felter [employer] FINISHER[employer]ON[employer]ATOR Work Phone: [phone] [place], [place] [address]Avkzmeehkf89-69-4893gmewwamsh, injectable, quadrivalent, preservative freeNatalie Felter [employer]AT FINISHER[employer] HOME DEMONSTRATOR Work Phone: [phone] [place], [place] [address]Smweyabqhf69-51-4039OHNZR-20 vaccine, full dose (MODERNA)SHIRLEY Beck MD Work Phone: [facility] HospitalWbvbbd59-74-7158AXWNC-60 vaccine, full dose (MODERNA)SHIRLEY Beck MD Work Phone: [facility] HospitalIrfipz24-56-6973uyekvphzc, seasonal, injectableNatalie Felter COAT FINISHER-[employer] HOME DEMONSTRATOR Work Phone: [phone] [place], [place] [address]Vlhxpfvsgv42-64-5242Wfxvebdze, High-dose Seasonal, Quadrivalent, Preservative FreeNatalie Felter [employer]AT FINISHER-[employer] HOME DEMONSTRATOR Work Phone: [phone] [place], [place] [address]Ydaxsqoonx13-33-6152ligziheiv, high dose seasonal, preservative-freeNatalie Felter COAT FINISHER[employer] HOME DEMONSTRATOR Work Phone: [phone] [place], [place] [address]Afmgwbyyoc86-40-7473Afypjsngk, High-dose Seasonal, Quadrivalent, Preservative FreeNatalie Felter [employer]AT FINISHER[employer] HOME DEMONSTRATOR Work Phone: [phone] [place], [place] [address]Tveispuhyh40-94-6124khcnoofuceag conjugate vaccine, 13 valentNatalie Felter [employer]AT FINISHER[employer] HOME DEMONSTRATOR Work Phone: [phone] [place], [place] [address]Sjqzahceee02-94-1825eyqpwjmye, seasonal, injectableNatalie Felter [employer]AT FINISHER[employer] HOME DEMONSTRATOR Work Phone: [phone] [place], [place] [address]Oafjgmfblz40-88-2346zrulwwncy, high dose seasonal, preservative-freeNatalie Felter [employer]AT FINISHER[employer] HOME DEMONSTRATOR Work Phone: [phone] [place], [place] [address]Vwtewvzetf48-65-8109Lvlyheobv, High-dose Seasonal, Quadrivalent, Preservative FreeNatalie Felter COAT FINISHER-[employer] HOME DEMONSTRATOR Work Phone: [phone] [place], [place] [address]Kbknxafztt70-89-7425zlrqthztv, seasonal, injectableNatalie Felter COAT FINISHER[employer] HOME DEMONSTRATOR Work Phone: [facility] CenterQwlxkeuwgc84-02-7778dvxmyysbndey Conjugate, unspecified formulationNatalie Emilee COAT FINISHER-[employer]Y HOME DEMONSTRATOR Work Phone: [facility] CenterNxcqskitib10-99-4786ljktapylu virus vaccine, split virus (incl. purified surface antigen)Julian Hebert COAT FINISHER-COUNTY HOME DEMONSTRATOR Work Phone: [facility] CenterKrmowjmwnl19-94-3872ndksraibp, injectable, quadrivalent, preservative freeNatalie Emilee COAT FINISHER-COUNTY HOME DEMONSTRATOR Work Phone: [facility] HealthcareNEGATED: Highlighted row has not occurred!86-27-7698KPCX-CoV-2 mRNA (tozinameran 5y-11y) vaccinePatrick RODGERS [facility] Payers DatePayer CategoryPayerPolicy [id number] 2024Self-pay [id number] Health Insurance [id number] 2020Medicare 1.2.840.020372.1.13.159.2.7.3.205654.74927-09-7395Smrqnpwhexhjj or Other HOSPITAL/MEDICAL GENERIC 1.2.840.729011.1.13.159.2.7.9.318446.13583.81134-59-2574YtqprwzPSMCLDXC/MEDICAL GENERIC MEDICAL GENERIC [id number] 2020-Present [phone] [address] [address] [place] [address] Fbwibzlsnmkqppf2033 1.2.840.216278.1.13.159.2.7.3.604524.70490-64-5688Oewopux 1.2.840.513381.1.13.159.2.7.3.252422.315 [id number] 1.2.840.990489.1.13.159.2.7.3.721139.315 [id number] 2.0.7.095198.64257893-68-8853Lfdvwdp Health [id number] Ktil-[id number] 2..0.854870.15 1946 [id number] 2..1.721774.3.579.2.36795-22-5300Oqjexsq5436607 2..1.267958.3.579.2.42822-94-9467Rursohm0631013 ..1.194026.3.579.2.19474-40-2640Nqdscwu8591714 2..1.769916.3.579.2.10912-10-1660Gsvfslq5960741 2..1.603757.3.579.2.92673-09-1861Mffqntm71219627 2.0.1.208341.3.579.2.170635-64-2500Qpdhjct01202619 2.0.1.865281.3.579.2.869937-96-1668Izwxpgw86659718 2.16.840.1.107390.3.579.2.61210-68-5915Fhsllwz50791633 2.16840.1.723950.3.579.2.27513-64-9676Iuxnvrt62998517 2.16840.1.130156.3.579.2.14852-08-8320Cmsddqh11951256 2.16840.1.886933.3.579.2.74536-81-9884Bvirshg91143410 2.16840.1.826535.3.579.2.272183-28-9698Fcqcnqr31129816 2.840.1.314333.3.579.2.225690-87-1441Nrliueh23461232 2.0.1.624718.3.579.2.301192-38-4121Pwqhwdr47942819 2.840.1.594559.3.579.2.335522-32-3246Tjxnzrq35506911 2.0.1.488175.3.579.2.696376-20-7819Xtsrdxa43052180 2.0.1.441297.3.579.2.339661-68-6068Keprjvu55078789 2.0.1.056886.3.579.2.595686-23-4590Zrjrlug63097195 2.16840.1.374030.3.579.2.782588-80-0333Xckorko76739695 2.16840.1.196443.3.579.2.703866-85-7218Pflhtre76072567 2.16840.1.909105.3.579.2.781041-05-9915Fmlezee54143797 2.16840.1.070132.3.579.2.418757-13-0928Ivwgaun83289833 2.16.840.1.799549.3.579.2.990916-35-3590Aqzvpeq3530449 2.16.840.1.909621.3.579.2.344583-01-2764Yuihnaf0670312 2.16.840.1.946577.3.579.2.976459-46-6298Pxuznik3092755 2.16.840.1.171837.3.579.2.738269-90-8417Qbacavl8616555 2.16.840.1.862511.3.579.2.281765-46-8250Shuqfpj2510388 2.16.840.1.659991.3.579.2.551713-59-9803Ryuexpl9278176 2.16.840.1.406415.3.579.2.794809-30-5794Putgufz8065518 2.16.840.1.821445.3.579.2.569667-14-4815Qvuklue5632415 2.16.840.1.055253.3.579.2.713629-36-0622Gufpbyw1877242 2.16.840.1.054678.3.579.2.070523-22-9920Mopfnjs8923833 2.16.840.1.262446.3.579.2.783494-09-1486Zsigxwi7638880 2.16.840.1.302817.3.579.2.920281-31-1060Kxlvcux2718156 2.16.840.1.827774.3.579.2.790098-55-0300Zfixqbi0014255 2.16.840.1.022756.3.579.2.019369-96-9026Tpggjeu1705710 2.16.840.1.550393.3.579.2.493317-89-5415Lxmknnq5180252 2.16.840.1.138800.3.579.2.793717-59-1502Asyzpue3016528 2.16.840.1.716204.3.579.2.149208-06-6607Nvqkgap2162372 2.16.840.1.538435.3.579.2.315456-95-4335Btezyij8996922 2.16.840.1.405233.3.579.2.637921-12-9453Ejhhfcl0386730 2..840.1.154669.3.579.2.432893-07-4396Bguerts2822472 2.0.1.225283.3.579.2.516025-07-2496Jdzdvob8795001 2..840.1.644131.3.579.2.1259MedicareMedicare [id number] br0iudzd-o99b-75n5-8199-[id number] 2.840.1.883079.3.579.2.315Ighcxjd54029305 2.0.1.740228.3.579.2.531 Social History DateTypeDetailFacilityTobacco smoking status NHISUnknown if ever smokedOhioHealth Grant Medical Centertart: 45-39-6265Iua Assigned At BirthNot on fileToledo HospitalExposure to SARS-CoV-2 (event)Unable to assessOhioHealth Grant Medical Centertart: 04-17-2020 End: 22-85-9387Nhiohln smoking status NHISNever smoked tobaccoToledo Hospital Start: 04-17-2020 End: 78-73-2281Shoyoao use and exposureSmokeless tobacco non-userOhioHealth Grant Medical Centertart: 05-06-2021 End: 89-79-2483Iidrnwo intakeCurrent drinker of alcohol (finding)[facility]art: 94-31-3713Vyykmax SDOH Alcohol Nnvfcqeuh7Jdhkuluik ClinicStart: 10-25-2021 End: 25-00-5074Wzlkrvgf to SARS-CoV-2 (event)Not sureOhioHealth Grant Medical Centertart: 07-04-2023 End: 23-77-7364Gbi Assigned At [facility] Ullink Other Start: 42-64-0934Potywwy smoking statusNeverExecutive [facility] of [facility] start: 48-83-5428Csn Assigned At [facility] Hospitaltart: 07-04-2023 End: 57-87-4770Flkdyza intakeLifetime non-drinker (finding)[facility] CenterStart: 07-04-2023 End: 36-55-5576Ectgvln of Social functionNOMS HealthcareStart: 91-60-8008Hzkssh orientationHeterosexual (finding)[facility] Cancer CenterTobacco smoking status NHIS Tobacco smoking consumption unknownAvita Health System [facility] Work Phone: How often to you have a drink containing alcohol? Monthly or lessOhioHealth Grant Medical Centertart: 10-08-2015 End: 55-88-1534CmbZvom (finding)[facility] Systemexual OrientationExecutive [facility]rology of [facility] NEGATED: Highlighted rowStart: NINFHistory of tobacco usePassive smokerNOMS Healthcare Functional Status XlodIelltnwzquWtpjssDvzlyfju91-51-6285Satzmjg Health Questionnaire 2 item (PHQ- 2) [Reported][facility] Cancer CenterNeoolsimqv97-83-8869Usjetbx Health Questionnaire 2 item (PHQ- 2) [Reported][facility] Cancer CenterKbwybvkbcp04-29-0719Sqhhdzh Health Questionnaire 2 item (PHQ- 2) [Reported][facility] Cancer CenterXluviscpzv77-72-4906Ruhiimjhtf StatusN/AExecutive [facility]rology of [facility]07-18-2022Functional StatusN/AExecutive [facility]rology of [facility] Sarai Clinical Notes 05-23-2021 to 06-11-2025 Note Date & WszqPgzvPgusfwui80-04-3636 History of Present illness Narrative* Natan Keyes MD - 06/11/2025 9:09 AM EDTAssociated Problem(s): Diabetes mellitus (HCC) A1c is 6.1 * Natan Keyes MD - 06/11/2025 9:09 AM EDTAssociated Problem(s): Type 2 diabetes mellitus with diabetic chronic kidney disease (HCC) No Tobacco use Follow ADA 1800 diet [...] and exercise. * Natan Keyes MD - 06/11/2025 8:30 AM EDT Images from the original note were not included. HPI Diabetes Additional comments: Last 7.2 Last edited by Maru Barnes MA on 06/11/2025 6:59 AM. Subjective Patient ID: Ritchie Pang is a 79 y.o. male who presents for Diabetes (Last 7.2). 107 to 110 for his avg. on his sugars Left side of his right knee has started hurting and he is taking aleve and this is helping him Changed Diet. In AM does a smoothy and then 1 meal. Doing exercises Diabetes He presents for his follow-up diabetic visit. He has type 2 diabetes mellitus. His disease course has been stable. Pertinent negatives for hypoglycemia include no dizziness. Pertinent negatives for diabetes include no chest pain. He is compliant with treatment all of the time. Over the past 2 weeks, how often have you been bothered by any of the following problems? Little interest or pleasure in doing things: Not at all Feeling down, depressed, or hopeless: Not at all Patient Health Questionnaire-2 Score: 0 Current Outpatient Medications on File Prior to [...] UT) capsule Take by mouth. Continuous Glucose [employer] Safety Engineer (FreeStyle Mayito 2 Trappe) device 1 Device Daily 1 each 0 diclofenac (Voltaren) 50 MG EC tablet Take 50 mg by mouth every 12 (twelve) hours if needed K Phos Kemper-Sod Phos Di & Kemper (Phospha 250 Neutral) 155-852-130 MG tablet Take [...] mouth in the morning. 100 tablet 4 tamsulosin (Flomax) 0.4 MG 24 hr capsule Take 0.4 mg by mouth [DISCONTINUED] Continuous Glucose Sensor (FreeStyle Mayito 2 Plus Sensor) misc 1 Device every 14 (fourteen) days 6 each 3 No current facility-administered medications on file prior to visit. I have reviewed and reconciled the history and medication list with the patient today. Allergies Allergen Reactions Grass Pollen(K-O-R-T-Swt Jatinder) Other Reaction(s): Sneezing Other Other Reaction(s): Unknown Wound Dressing Adhesive [...] no obstructive uropathy, has increased prostate Melanoma (HCC) 02/10/2017 Ashwin IV, Breslow 0.55mm mid back Melanoma (HCC) 08/20/2017 Dr. Weathers on the back Melanoma (HCC) 2018 left upper, Dr. 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 Respiratory: Negative for shortness of breath. Cardiovascular: Negative for chest pain. Gastrointestinal: Negative for constipation, diarrhea, nausea and vomiting. Musculoskeletal: Negative for back pain and gait problem. Neurological: Negative. Negative for dizziness and facial asymmetry. Objective Physical Exam Vitals reviewed. Constitutional: Appearance: Normal appearance. HENT: Head: Normocephalic. Cardiovascular: Rate and Rhythm: Normal rate and regular rhythm. Pulses: Normal pulses. Pulmonary: Effort: Pulmonary effort is normal. Breath sounds: Normal breath sounds. Neurological: General: No focal deficit present. Mental Status: He is alert and oriented to person, place, and time. Psychiatric: Mood and Affect: Mood normal. Office Visit on 06/11/2025 Component Date Value Ref Range Status Hemoglobin A1C 06/11/2025 6.1 Final Assessment/Plan Problem List Items Addressed This Visit Type 2 diabetes mellitus with diabetic chronic kidney disease (HCC) - Primary No Tobacco use Follow ADA 1800 diet [...] and importance of healthy diet and exercise. Relevant Orders POCT Glycated hemoglobin, total (Completed) Diabetes mellitus (HCC) A1c is 6.1 Relevant Medications Continuous Glucose Sensor (FreeStyle [place]ito 2 Plus Sensor[place] [facility] [place] Other Relevant Orders POCT Glycated hemoglobin, total (Completed) Follow up with Dr. Natan Keyes in about 4 months (around 10/12/2025). documented in this encounterAlvin J. Siteman Cancer [id number] Hospital Discharge instructions Patient Education 04/30/2025 12:53:29 Benign Prostatic Hyperplasia Benign Prostatic Hyperplasia Benign [...] urethra. Follow these instructions at home: Take qiro-bgy-pglulhb and prescription medicines only as told by [...] provider. Document Revised: 02/25/2022 Document Reviewed: 02/25/2022 [employer] Patient Education 2023 [employer]. Follow Up Care 03/10/2024 11:35:50 With:ANA MARIA PADILLA, Bernardo Khan, URL Address: [address] [place] [id number] When: Unknown Comments:1 yr w/ PSA [facility] 09-08-2025 Evaluation + Plan note Diagnostic Tests Pending * PSA Total 04/30/25 [facility] 09-08-2025 NotePatient Education Urology Benign Prostatic Hyperplasia Benign [...] or symptoms? Symptoms of this condition include: ??? Getting up often during the night to urinate. ??? Needing to urinate frequently during the day. ??? Difficulty starting urine flow. ??? Decrease in size and strength of your urine stream. ??? Leaking (dribbling) after urinating. ??? Inability to pass urine. This needs immediate treatment. ??? Inability to completely empty your bladder. ??? Pain when you pass urine. This is more common if there is also an infection. ??? Urinary tract infection (UTI). How is this diagnosed? This condition is diagnosed based on your medical history, a physical exam, and your symptoms. Tests will also be done, such as: ??? A post-void bladder scan. This measures any amount of urine that may remain in your bladder after you finish urinating. ??? A digital rectal exam. In a rectal exam, your health care provider checks your prostate by putting a lubricated, gloved finger into your rectum to feel the back of your prostate gland. This exam detects the size of your gland and any abnormal lumps or growths. ??? An exam of your urine (urinalysis). ??? A prostate specific antigen (PSA) screening. This is a blood test used to screen for prostate cancer. ??? An ultrasound. This test uses sound waves [...] severity of your condition. Treatment may include: ??? Observation and yearly exams. This may be the only treatment needed if your condition and symptoms are mild. ??? Medicines to relieve your symptoms, including: ? Medicines to shrink the prostate. ? Medicines to relax the muscle of the prostate. ??? Surgery in severe cases. Surgery may include: [...] the urethra. Follow these instructions at home: ??? Take gykj-wtg-vjegmub and prescription medicines only as told by your health care provider. ??? Monitor your symptoms for any changes. Contact your health care provider with any changes. ??? Avoid drinking large amounts of liquid before going to bed or out in public. ??? Avoid or reduce how much caffeine or alcohol you drink. ??? Give yourself time when you urinate. ??? Keep all follow-up visits. This is important. Contact a health care provider if: ??? You have unexplained back pain. ??? Your symptoms do not get (more content not included)...[facility]09-08-2025 Telephone encounter Note* Telephone Encounter - Kimberly Myers - 04/30/2025 10:14 AM EDT Contacted to check PT status, last PT was 04/09; he had noted when I had contacted to offer scheduling on he'd call me back. Given no call back I contacted him again. He said he is doing / feeling really good; he said He was healed . No more PT needed. He said he was very thankful for the treatment received. [facility] [id number] Miscellaneous Notes* Telephone Encounter - Kimberly Myers - 04/30/2025 10:14 AM EDT Contacted to check PT status, last PT was 04/09; he had noted when I had contacted to offer scheduling on he'd call me back. Given no call back I contacted him again. He said he is doing / feeling really good; he said He was healed . No more PT needed. He said he was very thankful for the treatment received. documented in this [facility]08-20-2025 Telephone encounter Note* Telephone Encounter - Kimberly Myers - 04/11/2025 3:07 PM EDT Tried to contact due to last PT 04/09 was his last scheduled; he had left before I could offer scheduling on. Requested call back to check status and schedule more if needed. [facility] Cancer [id number] Miscellaneous Notes* Telephone Encounter - Kimberly Myers - 04/11/2025 3:07 PM EDT Tried to contact due to last PT 04/09 was his last scheduled; he had left before I could offer scheduling on. Requested call back to check status and schedule more if needed. documented in this [facility]08-11-2025 History of Present illness Narrative* Marilyn Ochoa, PT - 04/02/2025 11:30 AM EDT Images from the original note were not included. Physical Therapy Progress Visit Patient Name: Ritchie Pang Today's Date: 04/02/2025 Encounter Diagnoses Name Primary? Pain, neck Yes Cervical paraspinal muscle spasm Visit number: 7 Timed Code Treatment Minutes: 25 minutes Total Treatment Time: 40 minutes Time In: 1135 Time Out: 1220 History: Pt. Presents to PT with c/c of right neck pain which started a month ago. No AYAD. Intermittent N/T down right UE. Difficulty turning his head. 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 Having increase pain while lifting objects overhead. Precautions: universal Subjective Pt states neck is getting better. Denies numbness or tingling in right UE. Pain: 2/10 today Objective: PT Evaluation (02/22/25) Cervical AROM: flexion normal, extension 10 deg, rotation right 25 deg, left 35 deg, SB 20 deg, bilateral Flexibility: moderate right upper trapezius muscle tightness Strength: scapular 4-/5 Palpation: TTP right upper trapezius with trigger points in upper trapezius Treatment: Education: HEP education with demonstration, Educated on Eval Findings and POC Manual Therapy: (14 minutes) supine cervical distraction, UT str, STM/TPR to anterior neck musculature and proximal UT. Passive ROM, Joint mobilization, Soft Tissue Mobilization, Myofascial Release, Muscle Energy Technique, Neural Mobilization, Myofascial Cupping, Dry Needling, IASTM, and Scar mobilization Therapeutic Exercise: (11 minutes) Instructed in exercises to improve chest [...] (BFRT) Modalities: (15 minutes) supine: IFC with HP to cervical spine for pain management. Heat, Ice, Electrical Stimulation, Ultrasound, Cervical Mechanical Traction, Lumbar Mechanical Traction, Iontophoresis, and Fluidotherapy Assessment: Cervical AROM: flexion normal, extension 15 deg, rotation right 40 deg, left 35 deg, Pt reports pain with cervical rotations. Strength: scapular 4/5 Pt. Has participated in 7 PT session with start of POC on 02/22/25 for right neck pain. Progressed exercises this date with good adeola. Discussed importance of postural strength with good understanding. Increase muscle tone right UT compared to left. Will continue. Outcome Measure: , (03/26/25) Short Term Goal: To be met in 2 weeks Goal 1: Pt to be instructed in home exercise program. Security Officer Supervisor Goals: To be met in 10 weeks Goal 1: Pt to report independence and compliance with home program. Goal 2: Pt. Will report of 0/10 right neck pain while turning head and performing daily tasks to help improve his quality of life.Progressing Goal 3: Pt. Will demonstrate normal right upper trapezius muscle flexibility to help decrease pain and improve his functional mobility.Progressing Goal 4: Pt. Will demonstrate 5/5 scapular strength to help decrease pain to improve his quality of life. Progressing Goal 5: Pt. Will demonstrate normal cervical ROM grossly in all planes to help improve his quality of life. Progressing Pt will benefit from skilled PT for 1-3x/week from 02/22/25 to 05/03/25 to address the above impairments. Will transfer PT POC to Joan Ochoa PT, CMPT,DPT I hereby deem this POC medically necessary. Please sign below. Date: documented in this encounterAlvin J. Siteman Cancer [id number] History of Present illness Narrative* Natan Keyes MD - 03/06/2025 3:56 PM EDTAssociated Problem(s): Diabetes mellitus (HCC) No Tobacco use Follow ADA 1800 diet [...] and exercise. * Natan Keyes MD - 03/06/2025 3:55 PM EDTAssociated Problem(s): Type 2 diabetes mellitus with diabetic chronic kidney disease (HCC) A1c went from 7.8 to 7.2 * Natan Keyes MD - 03/06/2025 3:30 PM EDT Images from the original note were not included. HPI Diabetes Additional comments: Last A1c was 7.8 Last edited by Maru Barnes MA on 03/06/2025 3:24 PM. Subjective Patient ID: Ritchie Pang is a 79 y.o. male who presents for ER Follow-up and Diabetes (Last A1c was 7.8). Pt went to ER on 03/03 due to having neck pain for 4 days, he did go to chiropractor, PT , he was given norflex and Voltaren and states these really dont help him but he is still taking them , he states ice on his neck does help him Pt did play golf today says there is some pain but not much Over the past 2 weeks, how often have you been bothered by any of the following problems? Little interest or pleasure in doing things: Not at all Feeling down, depressed, or hopeless: Not at all Patient Health Questionnaire-2 Score: 0 Current Outpatient Medications on File Prior to [...] UT) capsule Take by mouth. Continuous Glucose Rhic Systems Safety Engineer (FreeStyle Mayito 2 Trappe) device 1 Device Daily 1 each 0 Continuous Glucose Sensor (FreeStyle Mayito 2 Sensor) misc CHANGE EVERY 2 WEEKS DIRECTED 6 each 3 diclofenac (Voltaren) 50 MG EC tablet Take 50 mg by mouth every 12 (twelve) hours if needed K Phos Kemper-Sod Phos Di & Kemper (Phospha 250 Neutral) 155-852-130 MG tablet Take [...] mouth in the morning. 100 tablet 4 [DISCONTINUED] colchicine 0.6 MG tablet 2 tabs (1.2mg) x1 then 1 tab (0.6mg) x1 1 hour later. (Patient not taking: Reported on 03/05/2025) 3 tablet 11 [DISCONTINUED] HYDROcodone-acetaminophen ([place]) 5-325 MG tablet TAKE 1-2 TABLET BY MOUTH THREE TIMES DAILY NEEDED (Patient not taking: Reported on 03/05/2025) [DISCONTINUED] predniSONE (Deltasone) 10 MG tablet 4 tabs daily x2 days, then 3 tabs daily x2 days,then 2 tabs daily x2 days, then 1 tab daily x2 days Do not take with colchicine. Only start if goutflare not controlled with colchicine regimen. (Patient not taking: Reported on 03/05/2025) 20 tablet0 [DISCONTINUED] tamsulosin (Flomax) 0.4 MG 24 hr capsule Take 1 capsule (0.4 mg) by mouth Daily (Patient not taking: Reported on 03/05/2025) 30 capsule 3 [DISCONTINUED] triamcinolone (Kenalog) 0.1 % cream Apply to affected areas, up to twice a day when flared, do not use one the face, groin, or underarms, 30 day supply (Patient not taking: Reported on03/05/2025) 454 g 11 No current facility-administered medications on file prior [...] no obstructive uropathy, has increased prostate Melanoma (HCC) 02/10/2017 Ashwin IV, Breslow 0.55mm mid back Melanoma (HCC) 08/20/2017 Dr. Weathers on the back Melanoma (HCC) 2018 left upper, Dr. 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 HENT: Head: Normocephalic. Neck: Vascular: No carotid bruit. Cardiovascular: Rate and Rhythm: Normal rate and regular rhythm. Pulses: Normal pulses. Pulmonary: Effort: Pulmonary effort is normal. Breath sounds: Normal breath sounds. Musculoskeletal: General: Swelling present. Neurological: General: No focal deficit present. Mental Status: He is alert and oriented to person, place, and time. Psychiatric: Mood and Affect: Mood normal. Office Visit on 03/06/2025 Component Date Value Ref Range Status Hemoglobin A1C 03/06/2025 7.2 Final Assessment/Plan Problem List Items Addressed This Visit Diabetes mellitus (HCC) No Tobacco use Follow ADA 1800 diet [...] and importance of healthy diet and exercise. Relevant Orders POCT Glycated hemoglobin, total (Completed) No follow-ups on file. documented in this encounterAlvin J. Siteman Cancer [id number] NotePatient Education Materials Follows:Disease Upper Respiratory Infection, Adult An upper [...] to help relieve symptoms, such as: ? Sjhy-jkx-cmfzrfx cold medicines. ? Cough suppressants. Coughing is [...] other clear broths. General instructions ? Take uicm-zfs-yvpqzat and prescription medicines only as told by your health care provider. Theseinclude cold medicines, fever reducers, and cough suppressants. [...] seconds. If soap and water are not available,use hand is analyst. ? Avoid touching your mouth, face, eyes, [...] Mood. These symptoms may (more content not included)...[facility] [id number] Telephone encounter Note* Telephone Encounter - DESTINI Arredondo - 02/13/2025 5:08 PM EDT Flomax sent. PT ordered [facility] [id number] Miscellaneous Notes* Telephone Encounter - DESTINI Arredondo - 02/13/2025 5:08 PM EDT Flomax sent. PT ordered * Telephone Encounter - Luz Justice - 02/12/2025 9:31 AM EDT Patient came in asking if we could get him a prescription for flomax sent to [facility]. He also wondered if he could get a new referral for pt for his neck pain. He said he just finished pt for his back but that they will need a new referral for his neck. documented in this encounterAlvin J. Siteman Cancer [id number] Telephone encounter Note* Telephone Encounter - Luz Justice - 02/12/2025 9:31 AM EDT Patient came in asking if we could get him a prescription for flomax sent to [facility]. He also wondered if he could get a new referral for pt for his neck pain. He said he just finished pt for his back but that they will need a new referral for his neck. [facility] Cancer [id number] NoteHNO ID: [id number] Author: Stanley BECK MD Service: ? Author Type: Physician Type: Progress Notes Filed: 01/04/2025 11:12 Note Text: Radiation Oncology - Follow Up Note PATIENT NAME: Ritchie Pang PATIENT DIAGNOSIS: Prostate adenocarcinoma, initial PSA 8.5, biopsy [place] score 3 + 4 = 7 (grade [...] ASSESSMENT/PLAN: Prostate adenocarcinoma, initial PSA 8.5, biopsy [place] score 3 + 4 = 7 (grade [...] well as active information included in the EMR.[facility]05-15-2025 History of Present illness Narrative* Stanley Beck MD - 01/04/2025 11:06 AM EDT Radiation Oncology - Follow Up Note PATIENT NAME: Ritchie Pang PATIENT DIAGNOSIS: Prostate adenocarcinoma, initial PSA [...] ASSESSMENT/PLAN: Prostate adenocarcinoma, initial PSA 8.5, biopsy [place] score 3 + 4 = 7 (grade [...] as active information included in the EMR. * Dora Gilbert RN - 01/04/2025 11:01 AM EDT AUA 8 Dora Gilbert RN documented in this encounterTol[facility] NoteHNO ID: [id number] Author: DORA GILBERT RN Service: ? Author Type: Registered Nurse Type: Progress Notes Filed: 01/04/2025 11:12 Note Text: AUA 8 Dora Gilbert, JOSEAd[facility]04-08-2025 History of Present illness Narrative* Natan Keyes MD - 11/28/2024 2:08 PM EDTAssociated Problem(s): Ingrown right big toenail No drainage F/Up Dr. Mcrae * Natan Keyes MD - 11/28/2024 2:07 PM EDTAssociated Problem(s): Type 2 diabetes mellitus without complication, without long-term current useof insulin No Tobacco use Follow ADA 1800 [...] ago has had 3 rounds. Since Thanksgiving. * Natan Keyes MD - 11/28/2024 1:59 PM EDTAssociated Problem(s): Acute gout Improved with Cochicine * Natan Keyes MD - 11/28/2024 1:59 PM EDTAssociated Problem(s): Acute low back pain without sciatica PT referral made Stretching and core exercises advised OTC Tylenol and Ibuprofen * Natan Keyes MD - 11/28/2024 1:45 PM EDT Images from the original note were not included. Subjective Patient ID: Ritchie Pang is a 79 y.o. male who [...] hour later. 3 tablet 11 Continuous Glucose Rhic Systems Safety Engineer (FreeStyle Mayito 2 Trappe) device 1 Device Daily 1 each 0 Continuous Glucose Sensor (FreeStyle Mayito 2 Sensor) misc CHANGE EVERY 2 WEEKS DIRECTED 2 each 2 HYDROcodone-acetaminophen ([place]) 5-325 MG tablet TAKE 1-2 TABLET BY MOUTH THREE TIMES DAILY NEEDED K Phos Kemper-Sod Phos Di & Kemper (Phospha 250 Neutral) 155-852-130 MG tablet Take [...] Dr. Weathers on the back Melanoma (CMS/HCC) 2017 left upper, Dr. Weathers Melanoma in situ 2016 right amish Prostate cancer (CMS/HCC) Type II diabetes mellitus (CMS/HCC) Past Surgical History: Procedure Laterality Date APPENDECTOMY 1955 COLONOSCOPY 2013 KIDNEY SURGERY Left 2002 donated KNEE SURGERY Right 2004 SCOPE - DR DYSON SKIN CANCER EXCISION 11/2015 melanoma removal SKIN CANCER EXCISION 07/21/2017 melanoma removal TONSILLECTOMY 195 US BIOPSY 03/28/2020 us guided Visit Vitals [...] had 3 rounds. Since Thanksgiving. Diabetes mellitus ([facility]) Relevant Orders POCT Glycated hemoglobin, total (Completed) Ingrown right big toenail No drainage F/Up Dr. Mcrae Acute low back pain without sciatica PT referral made Stretching and core exercises advised OTC Tylenol and Ibuprofen Relevant Orders Ambulatory referral to Physical Therapy Follow up in about 3 months (around 02/27/2025) for Diabetes. documented in this [facility]04-03-2025 Telephone encounter Note* Telephone Encounter - Yas Proctor NP - 11/23/2024 12:32 PM EDT Please let pt know final toe xray shows erosive arthritis, specifically gout. No mention of infection. Follow up as directed at time of office visit. [facility] [id number] Miscellaneous Notes* Telephone Encounter - Yas Proctor NP - 11/23/2024 12:32 PM EDT Please let pt know final toe xray shows erosive arthritis, specifically gout. No mention of infection. Follow up as directed at time of office visit. documented in this [facility]04-03-2025 History of Present illness Narrative* Yas Proctor NP - 11/23/2024 10:40 AM EDT Images from the original note were not included. [address], [address] [facility], [address] P: [phone] F: [phone] HPI Historian of [facility]: patient Ritchie Pang is a 79 y.o. male who presents today to the Urgent Care with the following complaints and denials which have been present for 3 days. Pt states I was seen here for the gout,it was looking great when on the prednisone [...] shows erosion to distal aspect of metatarsal. Considerinfectious vs gouty erosion. Will await final report [...] suppression, immunosuppression, elevated blood sugars and Pt verbunderstanding and continues to demand prednisone be sent [...] 3 tabs daily x2 days, then 2 tabsdaily x2 days, then 1 tab daily x2 [...] 3 tabs daily x2 days, then 2 tabsdaily x2 days, then 1 tab daily x2 days Do not take with colchicine. Only start if gout flare not controlled with colchicine regimen. Dispense: 20 tablet; Refill: 0 documented in this encounterAlvin J. Siteman Cancer [id number] History of Present illness Narrative* Natan Keyes MD - 10/12/2024 1:46 PM ESTAssociated Problem(s): Acute gout Avoid protein meat Increase fluids * Natan Keyes MD - 10/12/2024 1:46 PM ESTAssociated Problem(s): Ingrown right big toenail Increase fluids Watch for infection * Natan Keyes MD - 10/12/2024 1:15 PM EST Images from the original note were not included. Subjective Patient ID: Ritchie Pang is a 78 y.o. male who presents for Gout. Pt is here for visit due to having gout in his right foot, severe pain is no longer there but stillhaving pain especially in his big toe right [...] UT) capsule Take by mouth. Continuous Glucose Rhic Systems Safety Engineer ([employer] Multi[employer]Style Mayito 2 Trappe) device 1 Device Daily 1 each 0 Continuous Glucose Sensor (FreeStyle Mayito 2 Sensor) misc CHANGE EVERY 2 WEEKS DIRECTED 2 each 2 HYDROcodone-acetaminophen ([place]) 5-325 MG tablet TAKE 1-2 TABLET BY MOUTH THREE TIMES DAILY NEEDED K Phos Kemper-Sod Phos Di & Kemper (Phospha 250 Neutral) 155-852-130 MG tablet Take [...] tablets Follow schedule on MEDROL PACK package instructionsto be used as directed 21 tablet 0 [...] tablet (100 mg) by mouth Daily 90 tablet0 [DISCONTINUED] predniSONE (Deltasone) 20 MG tablet 2 [...] left upper, Dr. Weathers Melanoma in situ ([facility]/HCC) 2016 right amish Prostate cancer (CMS/HCC) Type II diabetes mellitus [...] No follow-ups on file. documented in this encounterAlvin J. Siteman Cancer [id number] History of Present illness Narrative* Merrill Espinoza Ever, DPM - 10/03/2024 3:30 PM EST Patient: Ritchie Pang : 1945 PCP: Natan Keyes MD SUBJECTIVE This is a 78 y.o. male that presents today for a chief complaint of pain and redness of the right great toe joint for the past week. Patient states he began a light dose of medication for few days and did get a little better but hassince returned. Has positive history gout states it [...] left upper, Dr. Weathers Melanoma in situ ([facility]/HCC) 2016 right amish Prostate cancer ([facility]/HCC) Type II diabetes mellitus ([facility]/HCC) Medications: Current Outpatient Medications: albuterol HFA 90 mcg/act inhaler, INHALE 2 PUFFS BY MOUTH 4 TIMES A DAY NEEDED, Disp: , Rfl: allopurinol (Zyloprim) 100 MG tablet, Take 1 tablet (100 mg) by mouth Daily, Disp: 90 tablet, Rfl: 0 Alrex 0.2 % suspension ophthalmic suspension, Administer 1 drop into both eyes in the morning and 1drop before bedtime., Disp: , Rfl: Ascorbic Acid [...] by mouth., Disp: , Rfl: Continuous Glucose Rhic Systems Safety Engineer (FreeStyle Mayito 2 Trappe) device, 1 Device Daily, Disp: 1 each, Rfl: 0 Continuous Glucose Sensor (FreeStyle Mayito 2 Sensor) [facility] [facility] CHANGE EVERY 2 WEEKS DIRECTED, Disp: 2 each, Rfl: 2 HYDROcodone-acetaminophen ([place]) 5-325 MG tablet, TAKE 1-2 TABLET BY MOUTH THREE TIMES DAILY NEEDED, Disp: , Rfl: K Phos Kemper-Sod Phos Di & Kemper (Phospha 250 Neutral) 155-852-130 MG tablet, Take [...] to twice a day when flared, do notuse one the face, groin, or underarms, 30 [...] 2 diabetes mellitus without complication, unspecified whether skilled nursing insulin use ([facility]) PLAN Patient to increased fluid intake of water over the next 24 hours. and also discussed gout detail with patient today Prescription today for Medrol pack Patient contact Podiatry if no improvement in the next 72 hours and may consider possible injectionwhich was offered today of steroid however if not better in the next 3 days to contact Podiatry forsame-day appointment for possible steroid injections Merrill Mcrae DPM documented in this encounterAlvin J. Siteman Cancer [id number] History of Present illness Narrative* Merrill Mcrae DPM - 10/03/2024 3:30 PM EST Patient: Ritchie Pang : 1945 PCP: Natan Keyes MD SUBJECTIVE This is a 78 y.o. male that presents today for a chief complaint of pain and redness of the right great toe joint for the past week. Patient states he began a light dose of medication for few days and did get a little better but hassince returned. Has positive history gout states it [...] no obstructive uropathy, has increased prostate Melanoma ([facility]) 02/10/2017 Ashwin IV, B[place] 0.55mm mid back Melanoma ([facility] [address]) 08/20/2017 Dr. Weathers on the back Melanoma ([facility] [address]) 2018 left upper, Dr. Weathers Melanoma in situ ([facility] [address]) 2016 right amish Prostate cancer ([facility] [facility]) Type II diabetes mellitus ([facility] [address]) Medications: Current Outpatient Medications: albuterol HFA 90 mcg/act inhaler, INHALE 2 PUFFS BY MOUTH 4 TIMES A DAY NEEDED, Disp: , Rfl: allopurinol (Zyloprim) 100 MG tablet, Take 1 tablet (100 mg) by mouth Daily, Disp: 90 tablet, Rfl: 0 Alrex 0.2 % suspension ophthalmic suspension, Administer 1 drop into both eyes in the morning and 1drop before bedtime., Disp: , Rfl: Ascorbic Acid [...] by mouth., Disp: , Rfl: Continuous Glucose [employer] Safety Engineer (FreeStyle Mayito 2 Trappe) device, 1 Device Daily, Disp: 1 each, Rfl: 0 Continuous Glucose Sensor (FreeStyle [place] 2 Sensor) [facility] [place] CHANGE EVERY 2 WEEKS DIRECTED, Disp: 2 each, Rfl: 2 HYDROcodone-acetaminophen ([place]) 5-325 MG tablet, TAKE 1-2 TABLET BY MOUTH THREE TIMES DAILY NEEDED, Disp: , Rfl: K Phos Kemper-Sod Phos Di & Kemper (Phospha 250 Neutral) 155-852-130 MG tablet, Take [...] to twice a day when flared, do notuse one the face, groin, or underarms, 30 [...] 2 diabetes mellitus without complication, unspecified whether skilled nursing insulin use ([facility] [address]) PLAN Patient to increased fluid intake of water over the next 24 hours. and also discussed gout detail with patient today Prescription today for Medrol pack Patient contact Podiatry if no improvement in the next 72 hours and may consider possible injectionwhich was offered today of steroid however if not better in the next 3 days to contact Podiatry [facility]-day appointment for possible steroid injections Merrill Mcrae DPM documented in this encounterAlvin J. Siteman Cancer [id number] History of Present illness Narrative* Natan Keyes MD - 09/19/2024 1:56 PM ESTAssociated Problem(s): TIA (transient ischemic attack) Consider Plavix Consider Xarelto Consider Eliquis * Natan Keyes MD - 09/19/2024 1:47 PM ESTAssociated Problem(s): Shortness of breath More new SOB has worsened Does this Eforce and no chest pain, but SOB is improved, since doing more. Works out 5 days a week and has increased work load * Natan Keyes MD - 09/19/2024 1:30 PM EST Images from the original note were not included. Subjective Patient ID: Ritchie Pang is a 78 y.o. male who [...] (eight) hours. cholecalciferol (Vitamin D-3) 50 MCG (1999 UT) capsule Take by mouth. Continuous Glucose Sensor (FreeStyle Mayito 2 Sensor) misc CHANGE EVERY 2 WEEKS DIRECTED 2 each 2 HYDROcodone-acetaminophen ([place]) 5-325 MG tablet TAKE 1-2 TABLET BY MOUTH THREE TIMES DAILY NEEDED K Phos Kemper-Sod Phos Di & Kemper (Phospha 250 Neutral) 155-852-130 MG tablet Take [...] Weathers Melanoma in situ (CMS/HCC) 2016 right amish Prostate cancer (CMS/HCC) Type II diabetes mellitus [...] No follow-ups on file. documented in this encounterAlvin J. Siteman Cancer [id number] Nuclear medicine Diagnostic study [facility] [address] [place], [place] [id number] Nuclear Medicine Report Signed Patient: Ritchie Pang MR#: [id number] : 1945 Acct:[id number] Age/Sex: 78 / M ADM Date: 5 Loc: [place] Room: Type: [facility] Attending Dr: Natan Keyes MD Copies to: [...] Irina Ann M.D.09/18/2024 4:06 PM Dictation Location: [place] [address] Transcribed By: [facility] 09/18/24 1606 Dictated By: Irina Ann MD 09/18/24 1604 Signed By: 09/18/24 1606 [facility] Work Phone: 1(619) 706-282601-22-2025 History of Present illness Narrative* Leonie Valladares NP - 09/13/2024 1:30 PM EST Images from the original note were not included. Subjective Patient ID: Ritchie Pang is a 78 y.o. male who presents for gout flare up. Ritchie presents today for toe pain after he had a gout flare up a week ago. He went to Urgent Careand was put on a steroid. He also [...] (eight) hours. cholecalciferol (Vitamin D-3) 50 MCG (1999 UT) capsule Take by mouth. Continuous Glucose Sensor (FreeStyle Mayito 2 Sensor) misc CHANGE EVERY 2 WEEKS DIRECTED 2 each 2 HYDROcodone-acetaminophen ([place]) 5-325 MG tablet TAKE 1-2 TABLET BY MOUTH THREE TIMES DAILY NEEDED K Phos Kemper-Sod Phos Di & Kemper (Phospha 250 Neutral) 155-852-130 MG tablet Take [...] Dr. Weathers on the back Melanoma (CMS/HCC) 2017 left upper, Dr. Weathers Melanoma in situ (CMS/HCC) 2015 right amish Prostate cancer (CMS/HCC) Type II diabetes mellitus [...] 1/2 tab x 4 days then stop Dispense:20 tablet; Refill: 0 - Uric acid 2. [...] to discuss. 3. Malignant neoplasm of prostate ([facility] [address]) Stable. 4. Type 2 diabetes mellitus with other specified complication ([facility] [address]) He reports that he continues with metformin once daily. 5. Hyperlipidemia, unspecified ([facility] [address]) He has not been using a statin at this time. 6. Malignant melanoma of other part of trunk (CMS/HCC) Stable. 7. Type 2 diabetes mellitus with diabetic chronic kidney disease ([facility] [address]) Stable, 08/28/24 Glucose 65 - 99 mg/dL 148 High 8. Chronic kidney disease, stage 2 (mild): stable. 08/28/24 BUN 7 - 25 mg/dL 20 16 Creatinine 0.70 - 1.28 mg/dL 1.21 1.05 EGFR > OR = 60 mL/min/1.73m2 61 >60 R 73 62 R 66 R 56 Low R >60 R BUN/CREATININE RATIO 6 - 22 (calc) SEE NOTE: SEE NOTE: CM Comment: Not Reported: BUN and Creatinine are [...] 46 U/L 19 18 TBH EGFR-NON AF COLOMBIAN 55 Low R No follow-ups on file. documented in this [facility]01-22-2025 Instructions* Patient Instructions* Leonie Valladares NP - 09/13/2024 1:30 PM EST Prednisone added. Uric acid level ordered. documented in this [facility]01-14-2025 History of Present illness Narrative* Merrill Mcrae DPM - 09/05/2024 8:50 AM EST Patient: Ritchie Pang : 1945 PCP: Natan Keyes MD [...] no obstructive uropathy, has increased prostate Melanoma ([facility] [address]) 02/10/2017 Ashwin IV, Breslow 0.55mm mid back Melanoma ([facility] [address]) 08/20/2017 Dr. Weathers on the back Melanoma ([facility] [facility]) 2018 left upper, Dr. Weathers Melanoma in situ ([facility] [address]) 2016 right amish Prostate cancer ([facility]) Type II diabetes mellitus ([facility] [address]) Medications: Current Outpatient Medications: albuterol HFA 90 mcg/act inhaler, INHALE 2 PUFFS BY MOUTH 4 TIMES A DAY NEEDED, Disp: , Rfl: allopurinol (Zyloprim) 100 MG tablet, Take 1 tablet (100 mg) by mouth Daily, Disp: 90 tablet, Rfl: 0 Alrex 0.2 % suspension ophthalmic suspension, Administer 1 drop into both eyes in the morning and 1drop before bedtime., Disp: , Rfl: Ascorbic Acid (vitamin C) 100 MG tablet, Take 100 mg by mouth Daily, Disp: , Rfl: atorvastatin (Lipitor) 40 MG tablet, Take 1 tablet (40 mg) by mouth Daily, Disp: 30 tablet, Rfl: 11 baclofen (Lioresal) 10 MG tablet, every 8 (eight) hours., Disp: , Rfl: cholecalciferol (Vitamin D-3) 50 MCG (1999 UT) capsule, Take by mouth., Disp: , Rfl: Continuous Glucose Sensor (FreeStyle Mayito 2 Sensor) [facility] [place] CHANGE EVERY 2 WEEKS DIRECTED, Disp: 2 each, Rfl: 2 HYDROcodone-acetaminophen ([place]) 5-325 MG tablet, TAKE 1-2 TABLET BY MOUTH THREE TIMES DAILY NEEDED, Disp: , Rfl: K Phos Kemper-Sod Phos Di & Kemper (Phospha 250 Neutral) 155-852-130 MG tablet, Take [...] to twice a day when flared, do notuse one the face, groin, or underarms, 30 [...] 2 diabetes mellitus without complication, unspecified whether skilled nursing insulin use ([facility] [address]) 3. Pain due to onychomycosis of toenails [...] injection Merrill Mcrae DPM documented in this encounterAlvin J. Siteman Cancer [id number] Evaluation note* Diagnosis Onset Date Resolution Status Admit Date Gouty arthritis of right great toe acutePaceer 2023 9:15am [facility] Work Phone: 1(776) 399-118512-23-2024 History of Present illness Narrative* Natan Keyes MD - 08/14/2024 10:07 AM ESTAssociated Problem(s): Abnormal CT of brain MRI needed: Sella contents not visualized Recent TIA sxs: Baby aspirin Better control of sugars * Natan Kyees MD - 08/14/2024 10:03 AM ESTAssociated Problem(s): Other chest pain Signs and symptoms discussed of [place] Hold off exercise Possible referral to cardiology * Natan Keyes MD - 08/14/2024 9:53 AM ESTAssociated Problem(s): Malignant melanoma of other part of trunk (CMS/HCC) F/up with derm * Natan Keyes MD - 08/14/2024 9:52 AM ESTAssociated Problem(s): Type 2 diabetes mellitus without complication, without long-term current useof insulin (CMS/HCC) No Tobacco use Follow ADA 1800 diet [...] were not included. Subjective : Chief Complaint: Ritchie Pang is an 78 y.o. male here [...] Take by mouth. Continuous Blood Gluc Sensor ([employer] Multi[employer]Style Mayito 2 Sensor) misc CHANGE EVERY 2 WEEKS DIRECTED 2 each 5 HYDROcodone-acetaminophen ([place]) 5-325 MG tablet TAKE 1-2 TABLET BY MOUTH THREE TIMES DAILY NEEDED K Phos Kemper-Sod Phos Di & Kemper (Phospha 250 Neutral) 155-852-130 MG tablet Take [...] Do you have a medical power of deputy county attorney?: Yes Objective : BP 124/64 Pulse [...] Problem List Items Addressed This Visit Hypertriglyceridemia ([facility] [address] [facility]HCC) Relevant Orders CBC and differential Lipid panel Comprehensive metabolic panel Type 2 diabetes mellitus without complication, without long-term current use of insulin ([facility] [facility]) Relevant Medications SITagliptin (Januvia) 100 MG tablet 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) Relevant Orders CBC and differential Lipid panel Diabetes mellitus ([facility] [address]/HCC) Relevant Orders CBC and differential Microalbumin / creatinine urine ratio Comprehensive metabolic panel POCT Glycated hemoglobin, total Medicare annual wellness visit, subsequent Relevant Orders CBC and differential Lipid panel Microalbumin / creatinine urine ratio Comprehensive metabolic panel Other Visit Diagnoses Routine general medical examination at [facility] care facility - Primary Orders Placed This [...] on August 14, 2024 documented in this encounterAlvin J. Siteman Cancer [id number] History of Present illness Narrative* Wanda Chino [...] in 2015, margins clear 2nd Location: right amish Area was rebiopsied in 2017 and 2019, [...] Buccal Cheek, Left Scaphoid Fossa, Left Superior [place], Mid Parietal Scalp (3), Mid Supratip of Nose, Right Buccal Cheek, Right Eyebrow (2), Right Forehead, Right Pentecostalism Erythematous scaly papules Patient was counseled regarding [...] limited to risks of scarring, darker or organic gardening teacher pigmentary changes, recurrence, incomplete removal and infection. [...] Buccal Cheek, Left Scaphoid Fossa, Left Superior [place], Mid Parietal Scalp (3), Mid Supratip of Nose, Right Buccal Cheek, Right Eyebrow (2), Right Forehead, Right Pentecostalism 4. History of malignant melanoma of skin (2) Left Upper Back, Right Pentecostalism No evidence of recurrence at melanoma scars. [...] Next Visit: 4 months documented in this encounterAlvin J. Siteman Cancer [id number] History of Present illness Narrative* Subha Neal, FIORELLA - 04/27/2024 3:00 PM EDT Images from the original note were not included. Subjective Patient ID: Ritchie Pang is a 78 y.o. male who presents for a possible TIA Ritchie is in today for a possible TIA. 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 documented in this encounterAlvin J. Siteman Cancer [id number] History of Present illness Narrative* Wanda Chino [...] in 2015, margins clear 2nd Location: right amish Area was rebiopsied in 2017 and 2019, [...] plants, except food Right Forearm - Posterior Flora patches and plaques Start TAC 0.1% cream [...] of skin (2) Left Upper Back, Right Pentecostalism No evidence of recurrence at melanoma scars. The patient was counseled that scars from excisional sites of melanoma should be monitored closely for recurrence. The patient was instructed to contact the office for any new, changing, or symptomatic moles. The patient was also instructed to contact the office for any new lesions that develop within or around the previous melanoma scar. Recommended [facility] scar cream silicone based to use on new scar 3. Actinic keratosis (9) Left Parotid Area (2), Left Superior [place], Left Upper Back, Left Zygomatic Area, Right Parotid Area (2), Right [place] (2) Erythematous scaly papules Patient was counseled [...] limited to risks of scarring, darker or organic gardening teacher pigmentary changes, recurrence, incomplete removal and infection. [...] - Left Parotid Area (2), Left Superior [place], Left Upper Back, Left Zygomatic Area, Right Parotid Area (2), Right Superior [place] (2) 4. Neoplasm of unspecified behavior of [...] keratosis, inflamed Left Abdomen (side) - Upper Flora and brown stuck on verrucous scaly papule [...] limited to risks of scarring, darker or organic gardening teacher pigmentary changes, recurrence, incomplete removal and infection. [...] Next Visit: 3 months documented in this encounterAlvin J. Siteman Cancer [id number] Hospital Discharge instructions Patient Education 03/10/2024 11:22:14 [...] urethra. Follow these instructions at home: Take wigq-oqt-xeibeot and prescription medicines only as told by [...] provider. Document Revised: 02/25/2022 Document Reviewed: 02/25/2022 [employer] Patient Education 2022 [employer]. Follow Up Care 03/12/2023 09:11:12 With:ANA MARIA PADILLA, Bernardo Khan, URL Address: [address] [place] [address]- When: Unknown [facility] 05-08-2024 History of Present illness Narrative* Stanley Beck MD - 12/29/2023 10:22 AM EDT Radiation Oncology - Follow Up Note PATIENT NAME: Ritchie Pang PATIENT DIAGNOSIS: Prostate adenocarcinoma, initial PSA 8.5, biopsy [place] score 3 + 4 = 7 (grade [...] ASSESSMENT/PLAN: Prostate adenocarcinoma, initial PSA 8.5, biopsy [place] score 3 + 4 = 7 (grade [...] included in the EMR. documented in [facility] encounterTol[facility]05-[facility] Nurse Note* Dora Gilbert RN - 12/29/2023 10:17 AM EDT MIESHA 8 Dora Gilbert RN [facility]05-08-[facility] Nurse Note* Dora Gilbert RN - 12/29/2023 10:17 AM EDT MIESHA Gilbert RN documented in this encounterToledo Hospital03-22-2024 History of Present illness Narrative* Marli Perez RN - 11/12/2023 11:00 AM EDT Images from the original note were not included. Office Follow Up Note Visit Summary Chief Complaint 1. Complaint Wound check. Ritchie Pang is a 78 y.o. male who presents for 1 week follow up after surgery for a melanoma. The patient has no concerns today. Location Operation site location: right amish On exam, Mr. Pang is well-appearing and [...] pt states he has been using hand is analyst to clean wound. Pt advised to use [...] will return as needed. documented in this [facility] Work Phone: 1(511) 477-583903-13-2024 History of Present illness Narrative* Goyo Valladares MD PhD - 11/03/2023 8:15 AM EDT Images from the original note were not included. Office Visit Note Date: 11/03/2023 Surgeon: Goyo Valladares MD PhD Office Location: [address] [facility] [address] Dept: [phone] Dept Referring Provider: Julian Hebert, COAT [employer]ISH[employer] HOME DEMONSTRATOR [address] [place] [address] Subjective Ritchie Pang is a 78 y.o. male who [...] Surgeon: Goyo Valladares MD PhD Office Location: [address] [facility] [address] Dept: [phone] Dept Referring Provider: Julian Hebert, COAT FINISH[employer]COUNT[employer] HOME DEMONSTRATOR [address] [place] [address] Assessment/Plan Pre-procedure: Obtained informed consent: written from [...] Left Forehead Mohs surgery Consent obtained: written [place] Protocol: Procedure explained and questions answered to [...] sodium bicarbonate Procedure Details: Biopsy accession number: [id number] Date of biopsy: 09/27/2023 Frozen section biopsy [...] hematoxylin and eosin and also immunostained with [place]-1. A 3 mm biopsy of adjacent tissue was taken and used to establish a baseline with hematoxylin and eosin and [place]-1 immunostains. The debulk showed melanoma in situ. The specimen was processed using immunostains with [place]-1. Tumor features identified on Mohs section: no [...] and will follow up with their primary plant taxonomy teacher as scheduled. 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 Kidney function is stable . 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 Serum creatinine 1.1 mg deciliter blood pressure and volume status are well controlled Aug,iabetes mellitus type 2 in nonobese (ICD-10 - E11.9)Seems well controlled. On Januvia and metformin. Last hemoglobin A1c below 7%. Patient follows withhis PCP for diabetes management Aug,Hypophosphatemia (ICD-10 - E83.39)Phosphorus level is low at 2.6. I will start the patient on phosphorus supplement Aug,Vitamin D deficiency (ICD-10 - E55.9)Vitamin D is low at 24. I asked the patient to take mbks-zcr-tzmsrwz vitamin D supplement 2000 units daily. I will recheck 25-hydroxy vitamin D next visit Aug,History of gout (ICD-10 - Z87.39)Patient has history of 1 episode of gout few years ago. Patient is currently off allopurinol. Uric acid 7.6. Advised low animal protein diet Aug,enal cyst, right (ICD-10 - N28.1)Renal ultrasound revealed right renal cyst measuring 1.3 cm. No need for further work-up Aug,PH without urinary obstruction (ICD-10 - N40.0)Renal ultrasound revealed prostatomegaly.No urinary obstructive symptoms. [employer] Other 07-14-2023 Evaluation note* Encounter Date Diagnosis Assessment Notes Treatment Notes Treatment Clinical Notes Feb, Chronic pain (ICD-10 - G89.29) Stable. Feb,Lumbar radiculopathy (ICD-10 - M54.16) 77 year old [...] spine to further evaluate his pain . Feb,Lumbar degenerative disc disease (ICD-10 - M51.36) Follow up after imaging. [employer] Other 07-08-2023 Evaluation note* Encounter Date Diagnosis Assessment Notes Treatment Notes Treatment Clinical Notes Feb, Acute sinusitis, rec urrence not specified, unspecified location (ICD-10 - J01.90) [...] no improvement in 2 to 3 days Feb,llergic conjunctivitis of both eyes (ICD-10 - H10.13) Feb,ronchitis (ICD-10 - J40) [employer] Other 05-31-2023 Evaluation note* Encounter Date Diagnosis Assessment Notes Treatment Notes Treatment Clinical Notes December, Chronic kidney disease, stage II (mild) (ICD-10 [...] patient to avoid NSAIDs. 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 Kidney function is stable . 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 Serum creatinine 1.1 mg deciliter blood pressure and volume status are well controlled December,iabetes mellitus type 2 in nonobese (ICD-10 - E11.9)Seems well controlled. On Januvia and metformin. Last hemoglobin A1c below 7%. Patient follows withhis PCP for diabetes management December,Hypophosphatemia (ICD-10 - E83.39)Phosphorus level is low at 2.6. I will start the patient on phosphorus supplement December,Vitamin D deficiency (ICD-10 - E55.9)Vitamin D is low at 24. I asked the patient to take lssu-tgv-zvniwat vitamin D supplement 2000 units daily. I will recheck 25-hydroxy vitamin D next visit December,History of gout (ICD-10 - Z87.39)Patient has history of 1 episode of gout few years ago. Patient is currently off allopurinol. Uric acid 7.6. Advised low animal protein diet December,Renal cyst, right (ICD-10 - N28.1)Renal ultrasound revealed right renal cyst measuring 1.3 cm. No need for further work-up December,PH without urinary obstruction (ICD-10 - N40.0)Renal ultrasound revealed prostatomegaly.No urinary obstructive symptoms. [employer] Other 05-11-2023 History of Present illness Narrative* G Yobani Beck MD - 12/31/2022 1:17 PM EDT Radiation Oncology - Follow Up Note PATIENT NAME: Ritchie Pang PATIENT DIAGNOSIS: Prostate adenocarcinoma, initial PSA 8.5, biopsy [place] score 3 + 4 = 7 (grade [...] included in the EMR. documented in this encounterToledo Hospital01-06-2023 Evaluation note* Encounter Date Diagnosis Assessment Notes Treatment Notes Treatment Clinical Notes Aug, Contact with and (bay spected) exposure to other viral communicable diseases (ICD-10 - Z20.828) Aug,Viral upper respiratory illness (ICD-10 - J06.9)Viral upper respiratory infection: adult home care material was printed Drink plenty fluids, get plenty of rest. Take Tylenol or Motrin as needed for aches pains or fevers. Take Mucinex for congestion. Consider drinking warm tea with honey for comfort. Follow-up with your family physician if no improvement in 2 to 3 days. Aug,Sore throat (ICD-10 - J02.9) [employer] Other 11-02-2022 Evaluation note* Encounter Date Diagnosis Assessment Notes Treatment Notes Treatment Clinical Notes Jun, Single kidney (ICD-10 - Z90.5) Patient donated his right kidney in 2001. Serum creatinine 1.1 mg deciliter blood pressure and volume status are well controlled Jun,2Chronic kidney disease, stage II (mild) (ICD-10 - N18.2)likely from reduced nephron mass following kidney donation and 2001. Serum creatinine 1.1 mg/dL. Patient is at low risk for CKD progression if blood pressure and diabetes remain well controlled. I will check UA next visit. I asked the patient to avoid NSAIDs. Follow-up 6 months Jun,2Diabetes mellitus type 2 in nonobese (ICD-10 - E11.9)Seems well controlled. On Januvia and metformin. Last hemoglobin A1c 7%. Patient follows with his PCP for diabetes management [employer] Other 07-18-2022 Hospital Discharge instructions Patient Education [...] 08/09/2006 Document Revised: 04/28/2019 Document Reviewed: 07/09/2017 [employer] Patient [employer] 2020 [employer]. 03/09/2022 10:22:48 Benign Prostatic Hyperplasia Benign Prostatic [...] urethra. Follow these instructions at home: Take [id number] and prescription medicines only as told by [...] 08/09/2006 Document Revised: 07/04/2019 Document Reviewed: 09/13/2017 [employer] Patient [employer] 2020 [employer]. Follow Up Care 02/13/2022 14:37:55 With:ANA MARIA PADILLA, Bernardo Khan, URL Address: [facility] [address], [place] [phone] When:Within 1 Year(s) Comments:1 year fu with PSA [facility] Evaluation note* Encounter Date Diagnosis Assessment Notes Treatment Notes Treatment Clinical Notes Feb, Lumbar radiculopathy (ICD-10 - M 54.16) 76 year old female here for follow up status post bilateral L4 transforaminal epidural steroid injection under fluoroscopic guidance. Patient reports 100% pain relief as well as improved walking, standing and daily functions following procedure. He voices complaints of low back pain today. He denies any true radicular symptoms. He notes intermittent cramping in the bilateral calves and bottoms ofhis feet. Overall his pain is mild and manageable. I recommend he increase his activities as tolerated. He is counseled against any excessive bending or twisting. He is advised to call the office if their pain returns. Feb,Lumbar degenerative disc disease (ICD-10 - M51.36) Continue with current treatment plan. Feb,hronic pain (ICD-10 - G89.29) Call the office if pain persists or worsens. [employer] Other 07-09-2022 Evaluation note* Encounter Date Diagnosis Assessment Notes Treatment Notes Treatment Clinical Notes Feb, Viral upper respiratory infectio n (ICD-10 - J06.9) Viral upper respiratory infection: adult home care material was printed Drink plenty fluids, get plenty of rest. Take Tylenol or Motrin as needed for aches pains or fevers. Continue home medications as prescribed. Follow-up with your family physician if no improvement 2 to 3 days Feb,ontact with and (suspected) exposure to covid-19 (ICD-10 - Z20.822) [employer] Other 04-11-2022 Miscellaneous Notes* Telephone Encounter - Dora Gilbert RN - 12/01/2021 1:53 PM EDT Please review and sign if agreeable. Dora Gilbert [facility]* Encounter Date Diagnosis Assessment Notes Treatment Notes Treatment Clinical Notes Sep, Lumbar radiculopathy (ICD-10 - M 54.16) 75 year old male here for follow up for chronic pain. He voices complaints of intermittent low backand bilateral lower extremity pain. He states most of the time his pain is most bothersome in the anterior aspect of the thighs to the knees. He also notes intermittent cramping to the calves. He feels pain can negatively impact his ADLs and sleeping pattern. I discussed different treatment optionsin detail with the patient. If his pain persists or worsens, we can consider repeating injections in the future. Overall, patient appears to be doing well at this time. I recommend he increase his activities as tolerated. He is counseled against any excessive bending or twisting. He is advised to call the office if his pain returns. Sep,Lumbar degenerative disc disease (ICD-10 - M51.36) Continue with current treatment plan. Sep,hronic pain (ICD-10 - G89.29) Call the office if pain persists or worsens. [employer] Other 10-23-2021 Evaluation note* Encounter Date Diagnosis Assessment Notes Treatment Notes Treatment Clinical Notes May, Contact with and (bay spected) exposure to other viral communicable diseases (ICD-10 - Z20.828) Advised patient that rapid covid antigen test in office was negative. Discussed dx with patient. Advised that viral syndromes last 7-10 days, antibiotics are not indicated for viruses. Will treat as viral at this time based on physical exam and duration of symptoms. May use OTC cold medicationsas directed, Tylenol/Motrin as directed for aches/fever. Supportive [...] understanding and is agreeable to treatment plan May,OtherAdditional time spent conducting pre-visit phone call, screening for symptoms, instructions on social distancing, application and removal of PPE, and cleaning of examination room, equipment and supplies was preformed. Patient education given for testing methodology and results. Patient care instructions given in writting by [employer] [facility] document [employer] Other 10-01-2021 Evaluation note* Encounter Date Diagnosis Assessment Notes Treatment Notes Treatment Clinical Notes May, Contact with and (bay spected) exposure to other viral communicable diseases (ICD-10 - Z20.828) May,Viral upper respiratory illness (ICD-10 - J06.9) May,Other Additional time spent conducting pre-visit phone call, screening for symptoms, instructions on social distancing, application and removal of PPE, and cleaning of examination room, equipment and supplies was preformed. Patient education given for testing methodology and results. Patient care instructions given in writting by [employer] document. [employer] Other Evaluation + Plan note Future Appointments Appointment Date:03/12/2023 08:15:00 AM Scheduled Provider:Bernardo RODGERS MD Location:[facility] Appointment Type:URO Office Visit Diagnostic Tests Pending * PSA Total 03/09/22 [facility] evaluation + Plan note Future Appointments Appointment Date:03/16/2025 08:15:00 AM Scheduled Provider:Bernardo RODGERS MD Location:[facility] Appointment Type:URO Office Visit Diagnostic Tests Pending * PSA Total 01/21/25 [facility] evaluation + Plan note Future Appointments Appointment Date:03/16/2025 08:15:00 AM Scheduled Provider:Bernardo RODGERS MD Location:[facility] Appointment Type:URO Office Visit [facility] evaluation noteNo InformationNort Ullink Other Evaluation noteNo assessment information available [facility] Work Phone: Evaluation note* Diagnosis History of prostate cancer- Primary Personal history of malignant neoplasm of prostate [facility] Diagnosis Melanoma in situ of forehead (CMS/HCC) documented in this encounter [facility] Work Phone: Evaluation note* Diagnosis Melanoma in situ of forehead (CMS/HCC) Encounter for change or removal of nonsurgical wound dressing documented in this encounter [facility] Work Phone: Evaluation note* Diagnosis History of prostate cancer- Primary Personal history of malignant neoplasm of prostate [facility] Diagnosis Onset Date Resolution Status Right otitis media acute [facility] Work Phone: Evaluation note* Diagnosis Onset Date Resolution Status Right otitis media acuteArteriolonephrosclerosisacuteBPH without urinary obstructionacuteChronic kidney disease, stage II (mild)acuteDiabetes mellitus type 2 in nonobeseacute GoutacuteRenal cyst, rightacuteSingle kidneyacuteVitamin D deficiencyacute [facility] Work Phone: Evaluation note* Diagnosis Onset Date Resolution Status Arteriolonephrosclerosis acuteBPH without urinary obstructionacuteChronic kidney disease, stage II (mild) acuteDiabetes mellitus type 2 in nonobeseacuteGoutacuteRenal cyst, rightacute Single kidneyacuteVitamin D deficiencyacute [facility] Work Phone: Evaluation note* Diagnosis Dysphagia, unspecified [...] melanoma of skin [facility] Diagnosis Allergic contact dermatitis due to plants, except food- Primary Contact dermatitis and other eczema due to plants (except food) History of malignant melanoma of skin Personal history of malignant melanoma of skin Actinic keratosis Neoplasm of unspecified behavior of bone, soft tissue, and skin Seborrheic keratosis, inflamed Lentigines Seborrheic keratosis [facility]* Diagnosis Transient alteration of awareness- [...] skull and head documented in this encounter [facility]* Diagnosis Dysphagia, unspecified type- Primary Chronic pain of left heel Heel spur, left Sciatica of left side Heart disease Unspecified heart disease Routine general medical examination at health care facility- Primary Routine general medical examination at a health care facility Benign essential hypertension (CMS/[facility]) Essential hypertension, benign Abnormal glucose tolerance test [...] without long-term current use of insulin (HCC) ([facility]/HCC) Routine general medical examination at [facility] care facility- Primary Routine general medical examination [...] 2 diabetes mellitus without complication, unspecified whether keno terminal operator insulin use ([facility]/HCC) Pain due to onychomycosis of toenails of both feet Contracture of left ankle documented in this encounter [facility]* Diagnosis Dysphagia, unspecified type- [...] (HCC) (CMS/HCC) Routine general medical examination at [facility] care facility- Primary Routine general medical examination at a [facility] Type 2 diabetes mellitus with stage 3a [...] stage 2 (mild) documented in this encounter [facility]* Diagnosis Dysphagia, unspecified type- [...] Primary Routine general medical examination at a [facility] care [facility] Type 2 diabetes mellitus with stage 3a [...] ischemic occlusive disease documented in this encounter [facility]* Diagnosis Dysphagia, unspecified type- Primary Chronic pain of left heel Heel spur, left Sciatica of left side Heart disease Unspecified heart disease Routine general medical examination at health care facility- Primary Routine general medical examination at a [facility] Benign essential hypertension (CMS/HCC) Essential hypertension, benign [...] Primary Routine general medical examination at a [facility] Type 2 diabetes mellitus with stage 3a [...] 2 diabetes mellitus without complication, unspecified whether skilled nursing insulin use (CMS/HCC) documented in this encounter [...] Primary Routine general medical examination at a [facility] care [facility] Type 2 diabetes mellitus with stage 3a [...] toenail Ingrowing nail [facility] [...] toenail Ingrowing nail [facility]* [...] without long-term current use of insulin (HCC) ([facility]/HCC) Routine general medical examination at health care facility- Primary Routine general medical examination at a health care facility Type 2 diabetes mellitus with stage 3a chronic kidney disease, without long-term current use of insulin (HCC) (CMS/HCC) Hypertriglyceridemia (CMS/HCC) Pure hyperglyceridemia Medicare annual wellness visit, subsequent 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 Type 2 diabetes mellitus without [...] current use of insulin, unspecified CKD stage (CMS/[facility]) Type 2 diabetes mellitus without complication, without long-term current use of insulin Ingrown right big toenail Ingrowing nail [facility]* Diagnosis Dysphagia, unspecified type- Primary Chronic pain of left heel Heel spur, left Sciatica of left side Heart disease Unspecified heart disease Routine general medical examination at health care facility- Primary Routine general medical examination at a health care facility Benign essential hypertension ([facility]) Essential hypertension, benign Abnormal glucose tolerance test [...] without long-term current use of insulin (HCC) ([facility]/HCC) Hypertriglyceridemia ([facility]/HCC) Pure hyperglyceridemia Medicare annual wellness visit, subsequent [...] current use of insulin, unspecified CKD stage ([facility]) Type 2 diabetes mellitus without complication, without [...] a health care facility Benign essential hypertension ([facility]) Essential hypertension, benign Abnormal glucose tolerance test Impaired glucose tolerance test Nocturia Medicare annual wellness visit, subsequent Type 2 diabetes mellitus without complication, without long-term current use of insulin Hypertriglyceridemia ([facility]/HCC) Pure hyperglyceridemia Malignant neoplasm of prostate (CMS/HCC) Malignant neoplasm of prostate Stage 3a chronic kidney disease (HCC) ([facility]/HCC) Type 2 diabetes mellitus with stage 3a chronic kidney disease, without long-term current use of insulin (HCC) ([facility]/HCC) Routine general medical examination at health care facility- Primary Routine general medical examination at a health care facility Type 2 diabetes mellitus with stage 3a chronic kidney disease, without long-term current use of insulin (HCC) ([facility]/HCC) Hypertriglyceridemia ([facility]/HCC) Pure hyperglyceridemia Medicare annual wellness visit, subsequent [...] current use of insulin, unspecified CKD stage ([facility]) Type 2 diabetes mellitus without complication, without [...] a health care facility Benign essential hypertension ([facility]) Essential hypertension, benign Abnormal glucose tolerance test Impaired glucose tolerance test Nocturia Medicare annual wellness visit, subsequent Type 2 diabetes mellitus without complication, without long-term current use of insulin Hypertriglyceridemia ([facility]) Pure hyperglyceridemia Malignant neoplasm of prostate (CMS/HCC) Malignant neoplasm of prostate Stage 3a chronic kidney disease (HCC) ([facility]) Type 2 diabetes mellitus with stage 3a chronic kidney disease, without long-term current use of insulin (HCC) ([facility]) Routine general medical examination at health care facility- Primary Routine general medical examination at a health care facility Type 2 diabetes mellitus with stage 3a chronic kidney disease, without long-term current use of insulin (HCC) ([facility]) Hypertriglyceridemia ([facility]) Pure hyperglyceridemia Medicare annual wellness visit, subsequent 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 Type 2 diabetes mellitus without [...] current use of insulin, unspecified CKD stage ([facility]) Type 2 diabetes mellitus without complication, without [...] a health care facility Benign essential hypertension ([facility]) Essential hypertension, benign Abnormal glucose tolerance test [...] without long-term current use of insulin (HCC) ([facility]) Routine general medical examination at health care facility- Primary Routine general medical examination at a health care facility Type 2 diabetes mellitus with stage 3a chronic kidney disease, without long-term current use of insulin (HCC) (CMS/HCC) Hypertriglyceridemia (CMS/HCC) Pure hyperglyceridemia Medicare annual wellness visit, subsequent 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 Type 2 diabetes mellitus without [...] current use of insulin, unspecified CKD stage ([facility]) Type 2 diabetes mellitus without complication, without [...] a health care facility Benign essential hypertension ([facility]) Essential hypertension, benign Abnormal glucose tolerance test Impaired glucose tolerance test Nocturia Medicare annual wellness visit, subsequent Type 2 diabetes mellitus without complication, without long-term current use of insulin Hypertriglyceridemia ([facility]) Pure hyperglyceridemia Malignant neoplasm of prostate ([facility]/HCC) Malignant neoplasm of prostate Stage 3a chronic kidney disease (HCC) ([facility]) Type 2 diabetes mellitus with stage 3a chronic kidney disease, without long-term current use of insulin (HCC) ([facility]) Routine general medical examination at health care facility- Primary Routine general medical examination at a health care facility Type 2 diabetes mellitus with stage 3a chronic kidney disease, without long-term current use of insulin (HCC) ([facility]) Hypertriglyceridemia ([facility]) Pure hyperglyceridemia Medicare annual wellness visit, subsequent 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 Type 2 diabetes mellitus without complication, without long-term current use of insulin Malignant neoplasm of prostate ([facility]/HCC) Malignant neoplasm of prostate Malignant melanoma of [...] current use of insulin, unspecified CKD stage ([facility]/HCC) Type 2 diabetes mellitus without complication, without [...] a health care facility Benign essential hypertension ([facility]) Essential hypertension, benign Abnormal glucose tolerance test Impaired glucose tolerance test Nocturia Medicare annual wellness visit, subsequent Type 2 diabetes mellitus without complication, without long-term current use of insulin Hypertriglyceridemia ([facility]) Pure hyperglyceridemia Malignant neoplasm of prostate ([facility]) Malignant neoplasm of prostate Stage 3a chronic kidney disease (HCC) ([facility]/HCC) Type 2 diabetes mellitus with stage 3a chronic kidney disease, without long-term current use of insulin (HCC) ([facility]) Routine general medical examination at health care facility- Primary Routine general medical examination at a health care facility Type 2 diabetes mellitus with stage 3a chronic kidney disease, without long-term current use of insulin (HCC) ([facility]/HCC) Hypertriglyceridemia ([facility]/HCC) Pure hyperglyceridemia Medicare annual wellness visit, subsequent 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 History of prostate cancer- Primary Personal history of malignant neoplasm of prostate [facility] Diagnosis Dysphagia, unspecified type- Primary Chronic pain of left heel Heel spur, left Sciatica of left side Heart disease Unspecified heart disease Routine general medical examination at health care facility- Primary Routine general medical examination at a health care facility Benign essential hypertension ([facility]) Essential hypertension, benign Abnormal glucose tolerance test Impaired glucose tolerance test Nocturia Medicare annual wellness visit, subsequent Type 2 diabetes mellitus without complication, without long-term current use of insulin Hypertriglyceridemia ([facility]/HCC) Pure hyperglyceridemia Malignant neoplasm of prostate ([facility]/HCC) Malignant neoplasm of prostate Stage 3a chronic kidney disease (HCC) ([facility]) Type 2 diabetes mellitus with stage 3a chronic kidney disease, without long-term current use of insulin (HCC) ([facility]/HCC) Routine general medical examination at health care facility- Primary Routine general medical examination at a health care facility Type 2 diabetes mellitus with stage 3a chronic kidney disease, without long-term current use of insulin (HCC) ([facility]/HCC) Hypertriglyceridemia ([facility]/HCC) Pure hyperglyceridemia Medicare annual wellness visit, subsequent 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 Type 2 diabetes mellitus without complication, without long-term current use of insulin Malignant neoplasm of prostate ([facility]/HCC) Malignant neoplasm of prostate Malignant melanoma of [...] current use of insulin, unspecified CKD stage ([facility]/HCC) Type 2 diabetes mellitus without complication, without [...] of prostate Stage 3a chronic kidney disease ([facility]-HCC) Type 2 diabetes mellitus with stage 3a chronic kidney disease, without long-term current use of insulin (HCC) Routine general medical examination at [facility] care facility- Primary Routine general medical examination at a [facility] care facility Type 2 diabetes mellitus with [...] Primary Routine general medical examination at a [facility] Benign essential hypertension Essential hypertension, benign Abnormal glucose tolerance test Impaired glucose tolerance test Nocturia Medicare annual wellness visit, subsequent Type 2 diabetes mellitus without complication, without long-term current use of insulin (HCC) Hypertriglyceridemia Pure hyperglyceridemia Malignant neoplasm of prostate (HCC) Malignant neoplasm of prostate Stage 3a chronic kidney disease ([facility]) Type 2 diabetes mellitus with stage 3a chronic kidney disease, without long-term current use of insulin (HCC) Routine general medical examination at health care facility- Primary Routine general medical examination at a [facility] Type 2 diabetes mellitus with stage 3a [...] complication, without long-term current use of insulin ([facility]) Ingrown right big toenail Ingrowing nail Acute [...] Primary Routine general medical examination at a [facility] care facility Benign essential hypertension Essential hypertension, benign Abnormal glucose tolerance test Impaired glucose tolerance test Nocturia Medicare annual wellness visit, subsequent Type 2 diabetes mellitus without complication, without long-term current use of insulin (HCC) Hypertriglyceridemia Pure hyperglyceridemia Malignant neoplasm of prostate (HCC) Malignant neoplasm of prostate Stage 3a chronic kidney disease (CMS-HCC) Type 2 diabetes mellitus with stage 3a chronic kidney disease, without long-term current use of insulin (HCC) Routine general medical examination at health care facility- Primary Routine general medical examination at a [facility] Type 2 diabetes mellitus with stage 3a [...] Primary Routine general medical examination at a [facility] Benign essential hypertension Essential hypertension, benign Abnormal glucose tolerance test Impaired glucose tolerance test Nocturia Medicare annual wellness visit, subsequent Type 2 diabetes mellitus without complication, without long-term current use of insulin (HCC) Hypertriglyceridemia Pure hyperglyceridemia Malignant neoplasm of prostate (HCC) Malignant neoplasm of prostate Stage 3a chronic kidney disease ([facility]) Type 2 diabetes mellitus with stage 3a chronic kidney disease, without long-term current use of insulin (HCC) Routine general medical examination at health care facility- Primary Routine general medical examination at a [facility] Type 2 diabetes mellitus with stage 3a [...] of prostate Stage 3a chronic kidney disease ([facility]) Type 2 diabetes mellitus with stage 3a [...] of prostate Stage 3a chronic kidney disease ([facility]) Type 2 diabetes mellitus with stage 3a [...] Spasm of muscle documented in this encounter [facility] HealthcareEvaluation note* Diagnosis Dysphagia, unspecified type- [...] of prostate Stage 3a chronic kidney disease ([facility]) Type 2 diabetes mellitus with stage 3a chronic kidney disease, without long-term current use of insulin (HCC) Routine general medical examination at [facility] care facility- Primary Routine general medical examination at a [facility] care facility Type 2 diabetes mellitus with [...] (HCC) Ingrown right big toenail Ingrowing nail Type 2 diabetes mellitus with chronic kidney disease, with long-term current use of insulin, unspecified CKD stage (HCC) documented in this encounter [facility] HealthcareEvaluation note* Diagnosis Dysphagia, unspecified type- [...] of prostate Stage 3a chronic kidney disease ([facility]) Type 2 diabetes mellitus with stage 3a chronic kidney disease, without long-term current use of insulin (HCC) Routine general medical examination at health care facility- Primary Routine general medical examination at a [facility] Type 2 diabetes mellitus with stage 3a [...] (HCC) Ingrown right big toenail Ingrowing nail Type 2 diabetes mellitus with chronic kidney disease, with long-term current use of insulin, unspecified CKD stage (HCC) Pain, neck- Primary Cervical paraspinal muscle spasm [...] of prostate Stage 3a chronic kidney disease ([facility]) Type 2 diabetes mellitus with stage 3a [...] (HCC) Ingrown right big toenail Ingrowing nail Type 2 diabetes mellitus with chronic kidney disease, with long-term current use of insulin, unspecified CKD stage (HCC) Pain, neck- Primary Cervical paraspinal muscle spasm Spasm of muscle documented in this encounter [facility] HealthcareEvaluation note* Diagnosis Onset Date Resolution Status Admit Date Arteriolonephrosclerosis acuteJuly 2024 9:09amBPH without urinary obstructionacuteJuly 2024 9:09amChronic kidney disease, stage II (mild)acuteJuly 2024 9:09amDiabetes mellitus type 2 in nonobeseacuteJuly 2024 9:09amGoutacuteJuly 2024 9:09amRenal cyst, rightacuteJuly 2024 9:09amSingle kidneyacuteJuly 2024 9:09amVitamin D deficiencyacuteJuly 2024 9:09am [facility] Work Phone: Evaluation note* Diagnosis Dysphagia, [...] of prostate Stage 3a chronic kidney disease (CMS-HCC) Type 2 diabetes mellitus with stage 3a [...] (HCC) Ingrown right big toenail Ingrowing nail Type 2 diabetes mellitus with chronic kidney disease, with long-term current use of insulin, unspecified CKD stage (HCC) Pain, neck- Primary Cervical paraspinal muscle spasm Spasm of muscle Neck pain Cervicalgia documented in this encounter [facility] note* Diagnosis Dysphagia, unspecified type- Primary Chronic pain of left heel Heel spur, left Sciatica of left side Heart disease Unspecified heart disease Routine general medical examination at health care facility- Primary Routine general medical examination at a [facility] Benign essential hypertension Essential hypertension, benign Abnormal glucose tolerance test Impaired glucose tolerance test Nocturia Medicare annual wellness visit, subsequent Type 2 diabetes mellitus without complication, without long-term current use of insulin (HCC) Hypertriglyceridemia Pure hyperglyceridemia Malignant neoplasm of prostate (HCC) Malignant neoplasm of prostate Stage 3a chronic kidney disease ([facility]) Type 2 diabetes mellitus with stage 3a chronic kidney disease, without long-term current use of insulin (HCC) Routine general medical examination at health care facility- Primary Routine general medical examination at a [facility] Type 2 diabetes mellitus with stage 3a [...] (HCC) Ingrown right big toenail Ingrowing nail Type 2 diabetes mellitus with chronic kidney disease, with long-term current use of insulin, unspecified CKD stage (HCC) Type 2 diabetes mellitus with stage 3a chronic kidney disease, without long-term current use of insulin (HCC)- Primary Type 2 diabetes mellitus with chronic kidney disease, with long-term current use of insulin, unspecified CKD stage (HCC) documented in this encounter [facility] HealthcareHistory general Narrative - Reported* Type Description Date Medical History diabetes Medical HistoryProstate cancerSurgical Historydonated a kidneySurgical History kidney stones, stentSurgical HistoryRight knee meniscusSurgical History appendectomyHospitalization Historysee above [employer] Other History general Narrative - Reported* Type Description Date Medical History diabetes Medical HistoryProstate cancerMedical HistoryONLY HAS RIGHT KIDNEY DONATED THE LEFT IN 2001Medical HistoryMELANOMA RIGHT TEMPLEMedical HistoryTYPE II DIABETES Medical HistoryMELANOMA MID BACKMedical HistoryMELANOMA ON BACK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 NUMBNESSSurgical Historydonated a kidneySurgical Historykidney stones, stentSurgical HistoryRight knee meniscusSurgical HistoryappendectomySurgical HistoryMANY SKIN LESIONSSurgical HistoryTONSILECTOMY AND ADNOIDSHospitalization Historysee aboveHospitalization HistoryHITAL HERNIA [employer] Other History general Narrative - Reported* Type Description Date Medical History diabetes Medical HistoryProstate cancerMedical HistoryONLY HAS RIGHT KIDNEY DONATED THE LEFT IN 2001Medical HistoryMELANOMA RIGHT TEMPLEMedical HistoryTYPE II DIABETES Medical HistoryMELANOMA MID BACKMedical HistoryMELANOMA ON BACK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 NUMBNESSMedical HistoryHYPERLIPIDEMIAMedical HistoryCOVID 07/2023Surgical Historydonated a kidneySurgical Historykidney stones, stentSurgical HistoryRight knee meniscusSurgical HistoryappendectomySurgical HistoryMANY SKIN LESIONS Surgical HistoryTONSILECTOMY AND ADNOIDSHospitalization Historysee above Hospitalization HistoryRITAL HERNIA [employer] Other Hospital course Narrative No data available for this section [facility] Hospital Discharge instructions No data available for this section [facility] progress note No data available for this section [facility] [employer] reason for referral (narrative)* Consultation (Routine) - AuthorizedSpecialtyDiagnoses / ProceduresReferred By ContactReferred To ContactDermatology Diagnoses Melanoma in situ of forehead (CMS/HCC) Procedures Follow Up In Dermatology - Nurse Visit Goyo Valladares MD PhD [address], [place] [address] Goyo Valladares MD PhD [address] [place] [address] Referral IDStatusReasonStart DateExpiration DateVisits RequestedVisits [id number]/13/20243/ [facility] Work Phone: Reason for referral (narrative)No reason for referral information availableR[facility]ide [facility] Work Phone: Reason for visit Narrative* Rehabilitation - Outpatient (Routine) - AuthorizedSpecialtyDiagnoses / ProceduresReferred By ContactReferred To ContactPhysical Therapy Diagnoses Acute low back pain without sciatica, unspecified back pain laterality Procedures CT OFFICE/OUTPATIENT NEW HIGH MDM 60 MINUTES Natan Keyes MD [address] [place] [address] Phone: tel: fax: Marilyn Ochoa PT Referral IDStatusReasonStart DateExpiration DateVisits RequestedVisits [id number] Specialty Services Required / [facility] HealthcareReason for visit Narrative* Rehabilitation - Outpatient (Routine) - AuthorizedSpecialtyDiagnoses / ProceduresReferred By ContactReferred To ContactPhysical Therapy Diagnoses Acute low back pain without sciatica, unspecified back pain laterality Procedures CT OFFICE/OUTPATIENT NEW HIGH MDM 60 MINUTES Natan Keyes MD [address] [address] Phone: tel: fax: Marilyn Ochoa PT Referral IDStatusReasonStart DateExpiration DateVisits RequestedVisits [id number] Specialty Services Required / [facility] HealthcareReason for visit Narrative* Rehabilitation - Outpatient (Routine) - AuthorizedSpecialtyDiagnoses / ProceduresReferred By ContactReferred To ContactPhysical Therapy Diagnoses Neck pain Procedures CT OFFICE/OUTPATIENT NEW HIGH MDM 60 MINUTES Danya Chowdhury, DESTINI [address] [place] [address] Phone: tel: fax: Elicia Joseph, PT [address] [place] [address] Phone: tel: fax: Referral IDStatusReasonStart DateExpiration DateVisits RequestedVisits [id number] Specialty Services Required [facility] HealthcareReason for visit Narrative* Rehabilitation - Outpatient (Routine) - AuthorizedSpecialtyDiagnoses / ProceduresReferred By ContactReferred To ContactPhysical Therapy Diagnoses Neck pain Procedures CT OFFICE/OUTPATIENT NEW [facility] MDM 60 MINUTES Danya Chowdhury PA [address] [place] [address] Phone: tel: fax: Elicia Joseph, PT [address] [place] [address] Phone: tel: fax: Referral IDStatusReasonStart DateExpiration DateVisits RequestedVisits [id number] Specialty Services Required / [facility] Healthcare Summary Purpose Family History Relationship Condition Age at Onset Recorded Date/T hoda brother Unknown Alzheimer's dementiaUnknownfatherHeart diseaseUnknownDeceasedUnknownNot SpecifiedDeceasedUnknownMalignant melanomaUnknownMalignant neoplasmUnknownsister Chronic obstructive pulmonary diseaseUnknown Relationship Condition Age at Onset Recorded Date/T hoda brother Unknown Alzheimer's dementiaUnknownfatherHeart diseaseUnknownDeceasedUnknownmother DeceasedUnknownMalignant melanomaUnknownMalignant neoplasmUnknownsisterChronic obstructive pulmonary diseaseUnknown Advance Directives Advance Directive Response Recorded Date/ [...] Complaint congestion, cough RENAL 6 month follow upReason for VisitRight otitis media Arteriolonephrosclerosis BPH without urinary obstruction Chronic kidney disease, 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 Gout Renal cyst, right Single kidney Vitamin D deficiency Chief Complaint RENAL 6 month follow up r40.4 r68.89 r26.89Reason for VisitArteriolonephrosclerosis BPH without urinary obstruction Chronic kidney disease, 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 Gout Renal cyst, right Single kidney Vitamin D deficiency Chief Complaint Admit Date Poss gout right foot August 18, 2024 9:15am R07.89 September 18, 2024 8 :58am R07.89 September 18, 2024 3 :34pm Reason for Visit Admit Date Gouty arthritis of right great toe Decem 2023 9:15am Chief Complaint Admit Date RENAL 12 month follow up March 14, 2025 9:09am Reason for Visit Admit Date Arteriolonephrosclerosis March 14, 2025 9:09am BPH without urinary obstruction February 9:09am Chronic kidney disease, stage II (mild) March 14, 2025 9:09am Diabetes mellitus type 2 in nonobese Milo y 2024 9:09am Gout March 14, 2025 9:09 am Renal cyst, right March 14, 2025 9:09 am Single kidney March 14, 2025 9:09 am Vitamin D deficiency March 14, 2025 9:0 9am Reason for Referral SpecialtyDiagnoses / ProceduresReferred By ContactReferred To Contact Diagnoses Transient alteration of awareness Forgetfulness Loss of balance Procedures CT head wo IV contrast Subha Neal, [employer]ER [address] [facility] [address] [place] [address] [facility] [place] [address] Referral IDStatReasonStlizy DateExpiration DateVisits RequestedVisits [id number] Review/ Additional Source Comments Source Comments (unrecognize d section and content) In the event this informatio n is protected by the Federal Confidentiality of Alcohol and Drug Abuse Patient Records regulations: The Federal rules restrict any use of the information to criminally investigate or prosecute any alcohol or drug abuse patient.[facility] HospitalIn the event this information is protected by the Federal Confidentiality of Alcohol and Drug Abuse Patient Records regulations: The Federal rules restrict any use of the information to criminally investigate or prosecute any alcohol or drug abuse patient.[facility] HospitalIn the event this information is protected by the Federal Confidentiality of Alcohol and Drug Abuse Patient Records regulations: The Federal rules restrict any use of the information to criminally investigate or prosecute any alcohol or drug abuse patient.[facility] HospitalIn the event this information is protected by the Federal Confidentiality of Alcohol and Drug Abuse Patient Records regulations: The Federal rules restrict any use of the information to criminally investigate or prosecute any alcohol or drug abuse patient.[facility] HospitalIn the event this information is protected by the Federal Confidentiality of Alcohol and Drug Abuse Patient Records regulations: The Federal rules restrict any use of the information to criminally investigate or prosecute any alcohol or drug abuse patient.[facility] HospitalIn the event this information is protected by the Federal Confidentiality of Alcohol and Drug Abuse Patient Records regulations: The Federal rules restrict any use of the information to criminally investigate or prosecute any alcohol or drug abuse patient.[facility] HospitalIn the event this information is protected by the Federal Confidentiality of Alcohol and Drug Abuse Patient Records regulations: The Federal rules restrict any use of the information to criminally investigate or prosecute any alcohol or drug abuse patient.[facility] HospitalIn the event this information is protected by the Federal Confidentiality of Alcohol and Drug Abuse Patient Records regulations: The Federal rules restrict any use of the information to criminally investigate or prosecute any alcohol or drug abuse patient.[facility] HospitalIn the event this information is protected by the Federal Confidentiality of Alcohol and Drug Abuse Patient Records regulations: The Federal rules restrict any use of the information to criminally investigate or prosecute any alcohol or drug abuse patient.[facility] HospitalIn the event this information is protected by the Federal Confidentiality of Alcohol and Drug Abuse Patient Records regulations: The Federal rules restrict any use of the information to criminally investigate or prosecute any alcohol or drug abuse patient.[facility] HospitalIn the event this information is protected by the Federal Confidentiality of Alcohol and Drug Abuse Patient Records regulations: The Federal rules restrict any use of the information to criminally investigate or prosecute any alcohol or drug abuse patient.[facility] HospitalIn the event this information is protected by the Federal Confidentiality of Alcohol and Drug Abuse Patient Records regulations: The Federal rules restrict any use of the information to criminally investigate or prosecute any alcohol or drug abuse patient.[facility] Reason for Visit (unrecogniz ed section and content) ReasonOnset DateCommentsRefill Gqxrsjs95/11/2022ReasonCommentsProstate Cancer ReasonCommentsMOHS SurgeryRight Forehead, MISSpecialtyDiagnoses / Procedures Referred By ContactReferred To ContactDermatology Diagnoses Neoplasm of uncertain behavior of skin Julian Hebert, [employer]ON[employer] [address] [place] [id number] Referral IDStatusReasonStart DateExpiration DateVisits RequestedVisits [id number] Specialty Services Required /[id number] Check9 days s/p mohs melanoma right templeSpecialtyDiagnoses / ProceduresReferred By ContactReferred To Contact Dermatology Diagnoses Melanoma in situ of forehead (CMS/HCC) Procedures Follow Up In Dermatology - Nurse Visit Goyo Valladares MD PhD [address], [place] [address] Goyo Valladares MD PhD [address], [address] [address] Referral IDStatusReasonStart DateExpiration DateVisits RequestedVisits [id number]/13/20243/13/[id number] CheckReason CommentsMedicare Annual Wellness Visit SubsequentDiscuss his LPRReasonComments Ingrown ToenailRt gt ingrownReasonCommentsgo over CT resultsReasonCommentsGout ReasonCommentsgoutReasonCommentsER Follow-upDiabetesLast A1c was 7.8ReasonOnset DateCommentsPT is completed; happy w/ vczfav5604/30/2025ReasonOnset DateComments More PT?04/11/2025He will call back04/16/2025DC PT04/30/2025He noted feeling so much better and no more PT is needed.ReasonCommentsDiabetesLast 7.2 Care Teams (unrecognized sec tion and content) Team Status: Active Member Role Status Keely Keyes MD Primary Care Provider Active Team Status: Active Member Role Status Keely Keyes MD Primary Care Provider Active S tart: March 07, 2025 Stefania Castano ProviderActiveStart: March 07, 2025 Team Status: Inactive Member Role Status Keely Keyes MD Primary Care Provider Active S tart: March 14, 2025 End: March 14Stefania Garcia ProviderActiveStart: March 14, 2025 End: March 14, 2025 Team Status: Inactive Member Role Status Keely Keyes MD Primary Care Provider Active S tart: August 18, 2024 End: August 18, 2024Leo Thomson ProviderActiveStart: August 18, 2024 End: August 18, 2024 Team Status: Inactive Member Role Status Keely Keyes MD Primary Care Provide r, Attending Provider Active Start: September 18, 2024 End: September 18, 2024Chavo Weber ProviderActiveStart: September 18, 2024 End: September 18, 2024 Team Status: Active Member Role Status Keely Keyes MD Primary Care Provide r, Other Provider Active Start: September 18, 2024 Stefania Weber Provider, Referring ProviderActiveStart: September 18, 2024 Team Status: Active Member Role Status Keely Keyes MD Primary Care Provider Active S tart: March 06, 2024 Jillian Edwards MDAttending ProviderActiveStart: March 06, 2024 Team Status: Inactive Member Role Status Dates Natan Keyes MD Primary Care Provider Active S tart: March 15, 2024 End: March 15olga Edwards MDAttending ProviderActiveStart: March 15, 2024 End: March 15, 2024 Team Status: Inactive Member Role Status Dates Natan Keyes MD Primary Care Provider Active S tart: May 03, 2024 End: May 03, 2024Subha Neal [employer]ER-CAttensheryl ProviderActiveStart: May 03, 2024 End: May 03, 2024Team MemberRelationshipSpecialtyStart DateEnd Date Natan Keyes [address] [facility] [address] [place] [address] [facility] Team Status: Inactive Member Role Status Dates Natan Keyes MD Primary Care Provider Active Mary Castanoending ProviderActiveTeam MemberRelationshipSpecialtyStart DateEnd Date Natan Keyes [address] [place] [place] [address] PCP - [facility]04/17/20 Team Status: Inactive Member Role Status Dates Natan Keyes MD Primary Care Provider Active Chuck Hamm MDAttending ProviderActive Team Status: Inactive Member Role Status Dates Natan Keyes MD Primary Care Provider Active DO DIDIER UgaldeAttending ProviderActive Team Status: Inactive Member Role Status Dates Natan Keyes MD Primary Care Provider Active S tart: September 15, 2023 End: September 15olga Edwards MDAttending ProviderActiveStart: September 15, 2023 End: September 15, 2023Team MemberRelationshipSpecialtyStart DateEnd Date Natan Keyes MD [address] [place] [address] [place] [address] PCP - [facility]01/14/23 Natan Keyes MD [address] [facility] [address] [place] [address] PCP - [facility] Medicine02/25/23Team MemberRelationshipSpecialtyStart DateEnd Date Natan Keyes MD [address] [facility] [address] [place] [address] PCP - [facility]04/17/20 Team Status: Inactive Member Role Status Dates Natan Keyes MD Primary Care Provider Active S tart: January 24, 2024 End: January 24, 2024Leo Thomson ProviderActiveStart: January 24, 2024 End: January 24, 2024Team MemberRelationshipSpecialtyStart DateEnd Date Natan Keyes MD [address] [facility] [address] [place] [address] PCP - [facility]01/14/23 Natan Keyes MD [address] [facility] [address] [place] [address] PCP - [facility]02/25/23Team MemberRelationshipSpecialtyStart DateEnd Date Natan Keyes MD [address] [facility] [address] [place] [address] PCP - [facility]01/14/23 Natan Keyes MD [address] [facility] [address] [place] [address] PCP - [facility]02/25/23Team MemberRelationshipSpecialtyStart DateEnd Date Natan Keyes MD [address] [facility] [address] [place] [address] PCP - [facility]01/14/23 Natan Keyes MD [address] [place] [address] [place] [address] PCP - GeneralFamily Medicine02/25/23Team MemberRelationshipSpecialtyStart DateEnd Date Natan Keyes MD [address] [place] [address] [place] [address] PCP - [facility]01/14/23 Natan Keyes MD [address] [place] [address] [place] [address] PCP - Generalmily Medicine02/25/23Team MemberRelationshipSpecialtyStart DateEnd Date Natan Keyes MD [address] [facility] [address] [place] [address] PCP - ACO Reach01/14/23 Natan Keyes MD [address] [place] [address] [place] [address] PCP - GeneralFamily Medicine02/25/23Team MemberRelationshipSpecialtyStart DateEnd Date Natan Keyes MD [address] [place] [address] [place] [address] PCP - ACO Reach01/14/23 Natan Keyes MD [address] [place] [address] [place] [address] PCP - GeneralFamily Medicine02/25/23Team MemberRelationshipSpecialtyStart DateEnd Date Natan Keyes MD [address] [place] [address] [place] [address] PCP - ACO Reach01/14/23 Natan Keyes MD [address] [place] [address] [place] [address] PCP - GeneralFamily Medicine02/25/23Team MemberRelationshipSpecialtyStart DateEnd Date Natan Keyes MD [address] [facility] [address] [place] [address] PCP - ACO [facility]01/14/23 Natan Keyes MD [address] [facility] [address] [place] [address] PCP - GeneralFamily Medicine02/25/23Team MemberRelationshipSpecialtyStart DateEnd Date Natan Keyes MD [address] [facility] [address] [place] [address] PCP - ACO [facility]01/14/23 Natan Keyes MD [address] [facility] [address] [place] [address] PCP - GeneralFamily Medicine02/25/23Team MemberRelationshipSpecialtyStart DateEnd Date Natan Keyes MD [address] [facility] [address] [place] [address] PCP - ACO Reach01/14/23 Natan Keyes MD [address] [facility] [address] [place] [address] PCP - GeneralFamily Medicine02/25/23Team MemberRelationshipSpecialtyStart DateEnd Date Natan Keyes MD [address] [place] [address] [place] [address] PCP - ACO [facility]01/14/23 Natan Keyes MD [address] [place] [address] [place] [address] PCP - GeneralFamily Medicine02/25/23Team MemberRelationshipSpecialtyStart DateEnd Date Natan Keyes MD [address] [place] [address] [place] [address] PCP - ACO [facility]01/14/23 Natan Keyes MD [address] [place] [address] [place] [address] PCP - Generalmi Medicine02/25/23Team MemberRelationshipSpecialtyStart DateEnd Date Natan Keyes MD [address] [place] [address] [place] [address] PCP - ACO [facility]01/14/23 Natan Keyes MD [address] [place] [address] [place] [address] PCP - GeneralFami Medicine02/25/23Team MemberRelationshipSpecialtyStart DateEnd Date Natan Keyes MD [address] [place] [address] [place] [address] PCP - ACO [facility]01/14/23 Natan Keyes MD [address] [place] [address] [place] [address] PCP - Generalmi Medicine02/25/23Team MemberRelationshipSpecialtyStart DateEnd Date Natan Keyes MD [address] [place] [address] [place] [address] PCP - ACO [facility]01/14/23 Natan Keyes MD [address] [place] [address] [place] [address] [facility]/23Te MemberRelationshipSpecialtyStart DateEnd Date Natan Keyes MD [address] [place] [address] [place] [address] PCP - ACO [facility]01/14/23 Natan Keyes MD [address] [place] [address] [place] [address] PCP - [facility]02/25/23Te MemberRelationshipSpecialtyStart DateEnd Date Natan Keyes MD [address] [place] [address] [place] [address] PCP - ACO [facility]01/14/23 Natan Keyes MD [address] [place] [address] [place] [address] [facility]/25/23Te MemberRelationshipSpecialtyStart DateEnd Date Natan Keyes MD [address] [place] [address] [place] [address] PCP - ACO [facility]01/14/23 Natan Keyes MD [address] [place] [address] [place] [address] [facility]/23Te MemberRelationshipSpecialtyStart DateEnd Date Natan Keyes MD [address] [place] [address] [place] [address] [facility] Natan Keyes MD [address] [place] [address] [place] [address] PCP - [facility]02/25/23Te MemberRelationshipSpecialtyStart DateEnd Date Natan Keyes MD [address] [place] [address] [place] [address] PCP - [facility]01/14/23 Natan Keyes MD [address] [place] [address] [place] [address] PCP - [facility]02/25/23Te MemberRelationshipSpecialtyStart DateEnd Date Natan Keyes MD [address] [place] [address] [place] [address] PCP - [facility]01/14/23 Natan Keyes MD [address] [place] [address] [place] [address] PCP - [facility]02/25/23Te MemberRelationshipSpecialtyStart DateEnd Date Natan Keyes MD [address] [place] [address] [place] [address] PCP - [facility]01/14/23 Natan Keyes MD [address] [place] [address] [place] [address] PCP - [facility]02/25/23Team MemberRelationshipSpecialtyStart DateEnd Date Natan Keyes MD [address] [place] [address] PCP - [facility]01/14/23 Natan Keyes MD [address] [place] [address] [facility]02/25/23Te MemberRelationshipSpecialtyStart DateEnd Date Natan Keyes MD [address] [place] [address] [facility] - [facility]01/14/23 Natan Keyes MD [address] [place] [address] [place] [address] [facility] - [facility]02/25/23Te MemberRelationshipSpecialtyStart DateEnd Date Natan Keyes MD [address] [place] [address] [facility] - [facility]01/14/23 Natan Keyes MD [address] [place] [address] [facility]02/25/23Te MemberRelationshipSpecialtyStart DateEnd Date Natan Keyes MD [address] [place] [address] PCP - [facility]01/14/23 Natan Keyes MD [address] [place] [address] [facility] - [facility]02/25/23Team MemberRelationshipSpecialtyStart DateEnd Date Natan Keyes MD [address] [place] [address] [place] [address] PCP - [facility]01/14/23 Natan Keyes MD [address] [place] [address] [place] [address] PCP - [facility]02/25/23Team MemberRelationshipSpecialtyStart DateEnd Date Natan Keyes MD [address] [place] [address] [place] [address] PCP - [facility]01/14/23 Natan Keyes MD [address] [place] [address] [place] [address] PCP - [facility]02/25/23Team MemberRelationshipSpecialtyStart DateEnd Date Natan Keyes MD [address] [place] [address] [place] [address] PCP - [facility]01/14/23 Natan Keyes MD [address] [place] [address] PCP - [facility]02/25/23Team MemberRelationshipSpecialtyStart DateEnd Date Natan Keyes MD [address] [place] [address] PCP - [facility]01/14/23 Natan Keyes MD [address] [place] [address] PCP - GeneralFamily Medicine02/25/23Team MemberRelationshipSpecialtyStart DateEnd Date Natan Keyes MD [address] [place] [address] [place] [address] PCP - GeneralFamily Medicine04/17/20Team MemberRelationshipSpecialtyStart DateEnd Date Natan Keyes MD [address] [facility] [address] [place] [address] PCP - [facility] Re[facility]01/14/23 Natan Keyes MD [address] [facility] [address] [place] [address] PCP - GeneralFamily Medicine02/25/23Team MemberRelationshipSpecialtyStart DateEnd Date Natan Keyes MD [address] [facility] [address] [place] [address] PCP - [facility]01/14/23 Natan Keyes MD [address] [facility] [address] [place] [address] PCP - GeneralFamily Medicine02/25/23Team MemberRelationshipSpecialtyStart DateEnd Date Natan Keyes MD [address] [facility] [address] [place] [address] PCP - [facility] Re[facility]01/14/23 Natan Keyes MD [address] [facility] [address] [place] [address] PCP - GeneralFamily Medicine02/25/23Team MemberRelationshipSpecialtyStart DateEnd Date Natan Keyes MD [address] [facility] [address] [place] [address] PCP - [facility]01/14/23 Natan Keyes MD [address] [facility] [address] [place] [address] PCP - GeneralFamily Medicine02/25/23Team MemberRelationshipSpecialtyStart DateEnd Date Natan Keyes MD [address] [facility] [address] [place] [address] PCP - ACO [facility]01/14/23 Natan Keyes MD [address] [facility] [address] [place] [address] PCP - GeneralFamily Medicine02/25/23 January Kay, CLINIC ASSISTANT [address] [facility] [place] [address] [facility]04/02/25Te MemberRelationshipSpecialtyStart DateEnd Date Natan Keyes MD [address] [facility] [address] [place] [address] PCP - [facility]CO [facility]01/14/23 Natan Keyes MD [address] [facility] [address] [place] [address] [facility]02/25/23Team MemberRelationshipSpecialtyStart DateEnd Date Natan Keyes MD [address] [facility] [address] [place] [address] PCP - [facility]CO [facility]01/14/23 Natan Keyes MD [address] [facility] [address] [place] [address] PCP - GeneralFamily Medicine02/25/23 January Kay, CLINIC ASSISTANT [address] [place] [address] Social WorkerFamily Medicine (unrecognized sect ion and content) No Status Records FoundNo Status Records FoundNo Status Records FoundNo Status Records FoundNo Status Records FoundNo Status Records FoundNo Status Records FoundNo Status Records Found INFORMATION SOURCE (unrecogn ized section and content) DATE CREATED AUTHOR 03/16/2022 [facility] DATE CREATED AUTHOR AUTHOR'S ORGANIZ ATION 11/18/2023 [facility] DATE CREATED AUTHOR AUTHOR'S ORGANIZ ATION 09/04/2024 [facility] DATE CREATED AUTHOR AUTHOR'S ORGANIZ ATION 10/15/2024 [facility] DATE CREATED AUTHOR AUTHOR'S ORGANIZ ATION 01/05/2025 [facility] DATE CREATED AUTHOR AUTHOR'S ORGANIZ ATION 03/03/2025 [facility] DATE CREATED AUTHOR AUTHOR'S ORGANIZ ATION 05/01/2025 [facility] DATE CREATED AUTHOR AUTHOR'S ORGANIZ ATION 06/11/2025 [facility] EPIC Goals (unrecognized section and content) [...] BE BASED ON THE PRIMARY CLINICAL RECORDS. [employer] provides no warranty or guarantee of the accuracy or completeness of information in this document.
--- NOTE | 2025-07-10 10:22 | XR_ITS ---
The [address] [address] Patient Name: ROCIO PANG MRN: [id number] date: 1945 Sex: M Assigned Patient Location: [facility] Current Patient Location: [facility] Accession/Order Number: [id number] Exam Date: 07/10/2025 10:15 Report Date: 07/10/2025 10:48 At the request of: EVANGELISTA KNIGHT Procedure: XR knee RT 4V RIGHT KNEE - 4 views COMPARISON: 02/12/2021 CLINICAL DATA: Right medial knee pain for the past month after patient fell playing pickle ball AP, lateral and both oblique views were obtained. There is osteopenia. No acute fracture or dislocation is identified. No disproportionate joint space narrowing is seen. There is minor marginal spurring. Small enthesophytes are seen the patellar tendon. A loose body is again noted at the anterior aspect of the lateral tibiofemoral joint space. There is no knee effusion or soft tissue swelling. XR/XR knee RT 4V IMPRESSION: MINOR DEGENERATIVE CHANGES. NO ACUTE BONY INJURY. Impression dictated by: Danya Lovelace M.D. 07/10/2025 10:48 AM Dictation Location: [place] [address] Electronically authenticated by: [id number] Date: 07/10/2025 10:48
== END 2025-07-10 10:01 | disposition home or self-care (01) ==
LOC: RAD 10:01
PROVIDERS: PCP Family Medicine; Visit Provider Nurse Practitioner Family
DX: M25.561 Pain in right knee (principal)
CPT/HCPCS: 73564